=== PATIENT | female | born 1955 | race Caucasian/White ===

== ENCOUNTER 2016-07-12 21:32 | Emergency (ER) | payer BC ==
[2016-07-12 22:37] VITALS: RESP 18
[2016-07-12] MEDS ORDERED: SODIUM CHLORIDE 0.9% 1,000 ML IV STA ×2 (23:05)
[2016-07-12] MEDS ORDERED: ONDANSETRON 4 MG/2 ML VIAL IVP STA ×2 (23:05→23:57)
[2016-07-12] MEDS ORDERED: FAMOTIDINE 20 MG/2 ML VIAL IV STA (23:06)
--- NOTE | 2016-07-12 23:14 | ED ---
General Adult HPI - General Chief complaint: Nausea/Vomiting/Diarrhea Stated complaint: back & abdominal pain/vomiting/right foot numb Time Seen by Provider: 07/12/16 22:48 Source: patient, RN notes reviewed Mode of arrival: wheelchair Limitations: no limitations - History of Present Illness Initial comments: Patient is a 60-year-old female who presents emergency room today with chief complaint of increased nausea vomiting that began approximately 5 hours ago. She denies any signs of blood in the emesis. She does admit to chronic low back pain. Admits that she's had some numbness tingling going down to the right foot. Patient states she does have a pain pump of morphine for this. She states around 6:00 she began having symptoms of nausea vomiting. States she 's having burning sensation in the epigastric area. She states she does have a history of ulcer that she does take omeprazole for. She tried taking omeprazole and Zofran home with no relief the symptoms. Patient denies any recent fever, chills, shortness of breath, chest pain, numbness or tingling, dysuria or hematuria, constipation or diarrhea, headaches or visual changes, or any other complaints. - Related Data Home Medications Medication Instructions Recorded Confirmed Cyclobenzaprine [Flexeril] 10 mg PO BID PRN 04/14/16 07/12/16 traZODone HCL 150 mg PO HS 04/14/16 07/12/16 Morphine (Unknown Dose For Pain See Protocol IV DIRECTED 06/20/16 07/12/16 Pump) Previous Rx's Medication Instructions Recorded rOPINIRole HCL [Requip] 0.5 mg PO HS #60 tab 04/16/16 Methocarbamol [Robaxin-750] 750 mg PO TID PRN #30 tablet 06/20/16 HYDROcodone/APAP 7.5-325MG [[place] 1 tab PO Q6HR PRN #25 tab 06/21/16 7.5-325] Omeprazole [PriLOSEC] 20 mg PO AC-BRKFST 14 Days 07/13/16 Ondansetron Odt [Zofran ODT] 4 mg PO Q8HR PRN #15 tab 07/13/16 Allergies Allergy/AdvReac Type Severity Reaction Status Date / Time Sulfa (Sulfonamide Allergy Severe Rash/Hives Verified 07/12/16 22:35 Antibiotics) Penicillins Allergy Unknown Verified 07/12/16 22:35 Review of Systems ROS Statement: Those systems with pertinent positive or pertinent negative responses have been documented in the HPI. ROS Other: All systems not noted in ROS Statement are negative. Past Medical History Past Medical History: CVA/TIA, Hypertension Additional Past Medical History / Comment(s): chronic back pain, stroke in 2006 , pt has pain pump History of Any Multi-Drug Resistant Organisms: None Reported Past Surgical History: Back Surgery Additional Past Surgical History / Comment(s): laproscopic surgery Past Psychological History: Anxiety, Depression Smoking Status: Current every day smoker Past Alcohol Use History: None Reported Past Drug Use History: None Reported General Exam - General Exam Comments Initial Comments: General: The patient is awake and alert, in no distress, and does not appear acutely ill. Eye: Pupils are equal, round and reactive to light, extra-ocular movements are intact. No nystagmus. There is normal conjunctiva bilaterally. No signs of icterus. Ears, nose, mouth and throat: There are moist mucous membranes and no oral lesions. Neck: The neck is supple, there is no tenderness or JVD. Cardiovascular: There is a regular rate and rhythm. No murmur, rub or gallop is appreciated. Respiratory: Lungs are clear to auscultation, respirations are non-labored, breath sounds are equal. No wheezes, stridor, rales, or rhonchi. Gastrointestinal: Pain pump palpable in the right lower quadrant. Patient tender to palpation in the epigastric. Normal bowel sounds. Abdomen soft on palpation with no guarding. No rebound tenderness. Musculoskeletal: Normal ROM, no tenderness. Strength 5/5. Sensation intact. Pulses equal bilaterally 2+. Neurological: A&O x 3. CN II-XII intact, There are no obvious motor or sensory deficits. Coordination appears grossly intact. Speech is normal. Skin: Skin is warm and dry and no rashes or lesions are noted. Psychiatric: Cooperative, appropriate mood & affect, normal judgment. Limitations: no limitations Course Vital Signs 07/12/16 07/13/16 22:35 01:00 Temperature 97.4 F L Pulse Rate 100 90 Respiratory 18 18 Rate Blood Pressure 118/85 168/88 O2 Sat by Pulse 96 98 Oximetry Medical Decision Making - Medical Decision Making Patient's labs been reviewed. Urinalysis showed 8 red cells. Did show some calcium oxalate in the urinalysis. Options of the kidney stone were discussed with the patient. CAT scan does not reveal any evidence of kidney stone or any other acute abnormalities at this time. Patient will be discharged home. She is advised follow-up the family doctor. Was discussed about her pain pump possibly not working properly withdrawal type symptoms as well. Patient advised return if any symptoms increase or worsen or for any other concerns. She states understanding and is in agreement. - Lab Data Result diagrams: 07/12/16 23:20 07/12/16 23:20 Lab Results 07/12/16 07/12/16 07/12/16 Range/Units 23:20 23:20 23:20 WBC 6.5 (3.8-10.6) k/uL RBC 4.95 (3.80-5.40) m/uL Hgb 14.3 (11.4-16.0) gm/dL Hct 43.8 (34.0-46.0) % MCV 88.6 (80.0-100.0) fL MCH 29.0 (25.0-35.0) pg MCHC 32.7 (31.0-37.0) g/dL RDW 13.0 (11.5-15.5) % Plt Count 228 (150-450) k/uL Neutrophils % 80 % Lymphocytes % 15 % Monocytes % 3 % Eosinophils % 1 % Basophils % 1 % Neutrophils # 5.2 (1.3-7.7) k/uL Lymphocytes # 1.0 (1.0-4.8) k/uL Monocytes # 0.2 (0-1.0) k/uL Eosinophils # 0.1 (0-0.7) k/uL Basophils # 0.0 (0-0.2) k/uL Sodium 138 (137-145) mmol/L Potassium 3.8 (3.5-5.1) mmol/L Chloride 99 (98-107) mmol/L Carbon Dioxide 23 (22-30) mmol/L Anion Gap 16 mmol/L BUN 12 (7-17) mg/dL Creatinine 0.70 (0.52-1.04) mg/dL Est GFR (MDRD) Af Amer >60 (>60 ml/min/1.73 sqM) Est GFR (MDRD) Non-Af >60 (>60 ml/min/1.73 sqM) Glucose 132 H (74-99) mg/dL Calcium 10.1 (8.4-10.2) mg/dL Total Bilirubin 0.8 (0.2-1.3) mg/dL AST 19 (14-36) U/L ALT 29 (9-52) U/L Alkaline Phosphatase 80 (38-126) U/L Total Protein 7.6 (6.3-8.2) g/dL Albumin 4.6 (3.5-5.0) g/dL Amylase 38 (30-110) U/L Lipase 24 (23-300) U/L Urine Color Yellow Urine Appearance Cloudy H (Clear) Urine pH 5.5 (5.0-8.0) Ur Specific [place] 1.031 (1.001-1.035) Urine Protein 1+ H (Negative) Urine Glucose (UA) Negative (Negative) Urine Ketones 2+ H (Negative) Urine Blood Small H (Negative) Urine Nitrate Negative (Negative) Urine Bilirubin 1+ H (Negative) Urine Urobilinogen 3.0 (<2.0) mg/dL Ur Leukocyte Esterase Negative (Negative) Urine RBC 8 H (0-5) /hpf Urine WBC 2 (0-5) /hpf Calcium Oxalate Crystal Moderate H (None) /hpf Urine Mucus Many H (None) /hpf Disposition Clinical Impression: Abdominal pain Disposition: HOME SELF-CARE Condition: Good Instructions: Abdominal Pain (ED) Additional Instructions: Please use medication as discussed. Please follow-up with family doctor in the next 2 days of symptoms have not improved. Please return to emergency room if the symptoms increase or worsen or for any other concerns. Prescriptions: Omeprazole [PriLOSEC] 20 mg PO AC-BRKFST 14 Days Ondansetron Odt [Zofran ODT] 4 mg PO Q8HR PRN #15 tab PRN Reason: Nausea Time of Disposition: 01:58
[2016-07-12 23:39] LABS: Basophils % (A) 1 %; CH 30.2; CHCM 34.2; Eosinophils # (A) 0.1 k/uL (0-0.7); Eosinophils % (A) 1 %; HCT 43.8 % (34.0-46.0); HDW 2.56; HGB 14.3 gm/dL (11.4-16.0); Luc # (Auto) 0.05; Luc % (Auto) 1; Lymphocytes % (A) 15 %; MCHC 32.7 g/dL (31.0-37.0); MCV 88.6 fL (80.0-100.0); Monocytes # (A) 0.2 k/uL (0-1.0); Monocytes % (A) 3 %; Neutrophils # (A) 5.2 k/uL (1.3-7.7); Neutrophils % (A) 80 %; RBC 4.95 m/uL (3.80-5.40); WBC 6.5 k/uL (3.8-10.6)
[2016-07-12 23:43] LABS: Appearance,Urine Cloudy (Clear); Bilirubin,Urine 1+ (Negative); Calcium Oxalate Crystals,Urine Moderate /hpf; Glucose,Urine (UA) Negative (Negative); Ketones,Urine 2+ (Negative); Leukocyte Esterase,Urine Negative (Negative); Mucus,Urine Many /hpf; Nitrite,Urine Negative (Negative); PH, Urine 5.5 (5.0-8.0); Particle Count 19115; Protein,Urine 1+ (Negative); RBC,Urine 8 /hpf (0-5); Specific Gravity,Urine 1.031 (1.001-1.035); UA Billing (MACRO vs. MICRO) MICRO; WBC,Urine 2 /hpf (0-5)
[2016-07-12 23:49] LABS: ALT 29 U/L (9-52); AST 19 U/L (14-36); Alkaline Phosphatase 80 U/L (38-126); Amylase 38 U/L (30-110); Anion Gap 16 mmol/L; Blood Urea Nitrogen 12 mg/dL (7-17); Calcium 10.1 mg/dL (8.4-10.2); Carbon Dioxide 23 mmol/L (22-30); Chloride 99 mmol/L (98-107); Glucose 132 mg/dL (74-99); Non-African American GFR(MDRD) >60 (>60 ml/min/1.73 sqM); Potassium 3.8 mmol/L (3.5-5.1); Sodium 138 mmol/L (137-145); Total Bilirubin 0.8 mg/dL (0.2-1.3); Total Protein 7.6 g/dL (6.3-8.2)
[2016-07-12] MEDS ORDERED: MORPHINE SULFATE 4 MG/ML SYRINGE IV STA (23:57)
[2016-07-12] MEDS ORDERED: LORazepam 2 MG/ML SYRINGE IV STA (23:57)
--- NOTE | 2016-07-13 01:24 | CT ---
EXAMINATION TYPE: CT abdomen pelvis wo con DATE OF EXAM: 07/13/2016 12:28 AM COMPARISON: 04/14/2016 HISTORY: back pain, vimiting CT DLP: 304.40 mGycm Automated exposure control for dose reduction was used. TECHNIQUE: Helical acquisition of images was performed from the lung bases through the pelvis. FINDINGS: LUNG BASES: No significant abnormality is appreciated. LIVER/GB: No significant abnormality is appreciated. PANCREAS: No significant abnormality is seen. SPLEEN: No significant abnormality is seen. ADRENALS: No significant abnormality is seen. KIDNEYS: Both kidneys are rotated laterally. No obstructing stones or hydronephrosis is noted bilater ally. RETROPERITONEAL ADENOPATHY: None visualized REPRODUCTIVE ORGANS: No significant abnormality is seen URINARY BLADDER: No significant abnormality is seen. PELVIC ADENOPATHY: None visualized. OSSEOUS STRUCTURES: Multilevel degenerative changes are present in the thoracolumbar spine with dege nerative disc disease changes at L5-S1 with vacuum disc phenomenon. There is also grade 1 anterolisth esis of L4 on L5 vertebra of chronic nature. Levoscoliosis is noted in the lumbar spine. BOWEL: Moderate fecal material and gas is noted in the colonic bowel loops. There is mild to moderat e colonic fecal lordosis. No significant acute diverticulitis changes are noted. The appendix seen in the axial image 109 and coronal image 27 and showed no significant inflammation. OTHER: There is evidence of an electronic device superimposing the anterior aspect of abdomen. Mild-t o-moderate atherosclerotic calcification is noted in the abdominal aorta and iliac arteries. IMPRESSION: 1. MILD COLONIC DIVERTICULOSIS WITHOUT ACUTE DIVERTICULITIS CHANGES OR ABSCESS COLLECTION. 2. VISUALIZED APPENDIX AREA SHOWED NO SIGNIFICANT INFLAMMATION. 3. NO HYDRONEPHROSIS OR OBSTRUCTING STONES IN BOTH KIDNEYS. 4. NO SIGNIFICANT INTERVAL CHANGE.
[2016-07-13] MEDS ORDERED: HYDROmorphone 1 MG/ML 1 ML SYRINGE IVP STA (02:01)
--- NOTE | 2016-07-13 02:37 | XR ---
EXAMINATION TYPE: XR KUB DATE OF EXAM: 07/12/2016 11:42 PM CLINICAL HISTORY: Nausea and back pain history of chronic back pain back surgery. TECHNIQUE: Single supine KUB image of the abdomen is obtained. COMPARISON: 04/14/2016 FINDINGS: Scattered gas is seen in non-distended small bowel loops. Gas and fecal material is seen in non-distended colon. There is no visceromegaly, pneumoperitoneum, or abnormal calcification appr eciated. The lung bases are clear and the osseous structures are intact. An electronic device is noted superimposing the right abdomen and pelvis. IMPRESSION: Overall nonobstructive bowel gas pattern.
[2016-07-13 02:44] VITALS: BP 168/93; PULSE 97; TEMP 97.9
== END 2016-07-13 02:43 | disposition home or self-care (01) ==
LOC: EC 21:32
DX: R10.9 Unspecified abdominal pain (principal); Z79.899 Other long term (current) drug therapy; Z88.2 Allergy status to sulfonamides; Z88.0 Allergy status to penicillin; Z79.891 Long term (current) use of opiate analgesic; G89.29 Other chronic pain; M54.5 Low back pain; F32.9 Major depressive disorder, single episode, unspecified; F17.200 Nicotine dependence, unspecified, uncomplicated
CPT/HCPCS: 36415; 80053; 82150; 83690; 85025; 81001; 74000; 74176; 99284; 96374 ×2; 96375 ×2; 96361 ×2; J2060; J2270; J2405 ×2; J1170

== ENCOUNTER 2017-02-12 19:06 | Emergency (ER) | payer BC ==
[2017-02-12] MEDS ORDERED: ONDANSETRON 4 MG/2 ML VIAL IVP STA (19:50)
[2017-02-12] MEDS ORDERED: HYDROmorphone 1 MG/ML 1 ML SYRINGE IVP STA (19:50)
[2017-02-12] MEDS ORDERED: SODIUM CHLORIDE 0.9% 1,000 ML IV STA ×2 (19:50)
--- NOTE | 2017-02-12 19:55 | ED ---
General Adult HPI - General Chief complaint: Nausea/Vomiting/Diarrhea Stated complaint: vomiting,black stool Time Seen by Provider: 02/12/17 19:46 Source: patient, family, RN notes reviewed Mode of arrival: ambulatory Limitations: no limitations - History of Present Illness Initial comments: Patient 61-year-old female who presents emergency room today with chief complaint of symptoms of nausea vomiting diarrhea over the last 3 days. She admits that she's had similar symptoms on and off over the last year. She states that the smell of food or when she eats pain increases the upper abdomen. States majority of her pain is located in this area. Patient denies any signs of blood in the emesis or stool. Currently rates pain 04/03. Denies any other complaints at this time. Patient denies any recent fever, chills, shortness of breath, chest pain, back pain, numbness or tingling, dysuria or hematuria, constipation, headaches or visual changes, or any other complaints. - Related Data Home Medications Medication Instructions Recorded Confirmed traZODone HCL 150 mg PO HS 04/14/16 02/12/17 Gabapentin [Neurontin] 300 mg PO QID 02/12/17 02/12/17 HYDROcodone/APAP 10-325MG [[place] 1 tab PO Q8H PRN 02/12/17 02/12/17 10-325] Naloxegol Oxalate [Movantik] 25 mg PO DAILY 02/12/17 02/12/17 Ondansetron Odt [Zofran ODT] 4 mg PO TID PRN 02/12/17 02/12/17 Pantoprazole [Protonix] 40 mg PO DAILY 02/12/17 02/12/17 QUEtiapine [SEROquel] 100 mg PO HS 02/12/17 02/12/17 Sucralfate [Carafate] 1 gm PO ACHS 02/12/17 02/12/17 Triamterene-Hctz 37.5-25Mg 1 cap PO DAILY 02/12/17 02/12/17 [Dyazide 37.5-25 Capsule] busPIRone HCL 15 mg PO BID 02/12/17 02/12/17 cloNIDine HCL [Catapres] 0.1 mg PO AC-TID 02/12/17 02/12/17 rOPINIRole HCL [Requip] 1 mg PO TID 02/12/17 02/12/17 Previous Rx's Medication Instructions Recorded Methocarbamol [Robaxin-750] 750 mg PO TID PRN #30 tablet 06/20/16 Hydrocodone/Acetaminophen [[place] 1 each PO Q6HR PRN #15 tab 02/12/17 5-325] Allergies Allergy/AdvReac Type Severity Reaction Status Date / Time Sulfa (Sulfonamide Allergy Severe Rash/Hives Verified 02/12/17 19:49 Antibiotics) Penicillins Allergy Unknown Verified 02/12/17 19:49 Review of Systems ROS Statement: Those systems with pertinent positive or pertinent negative responses have been documented in the HPI. ROS Other: All systems not noted in ROS Statement are negative. Past Medical History Past Medical History: CVA/TIA, Hypertension Additional Past Medical History / Comment(s): chronic back pain, stroke in 2005 , pt has pain pump History of Any Multi-Drug Resistant Organisms: None Reported Past Surgical History: Back Surgery Additional Past Surgical History / Comment(s): laproscopic surgery Past Psychological History: Anxiety, Depression Smoking Status: Current every day smoker Past Alcohol Use History: None Reported Past Drug Use History: None Reported General Exam - General Exam Comments Initial Comments: General: The patient is awake and alert, in no distress, and does not appear acutely ill. Eye: Pupils are equal, round and reactive to light, extra-ocular movements are intact. No nystagmus. There is normal conjunctiva bilaterally. No signs of icterus. Ears, nose, mouth and throat: There are moist mucous membranes and no oral lesions. Neck: The neck is supple, there is no tenderness or JVD. Cardiovascular: There is a regular rate and rhythm. No murmur, rub or gallop is appreciated. Respiratory: Lungs are clear to auscultation, respirations are non-labored, breath sounds are equal. No wheezes, stridor, rales, or rhonchi. Gastrointestinal: No appearance abdomen. Normal bowel sounds. Abdomen soft on palpation. Patient tender in epigastric and both right and left upper quadrants. No rebound tenderness. No CVA tenderness. Musculoskeletal: Normal ROM, no tenderness. Strength 5/5. Sensation intact. Pulses equal bilaterally 2+. Neurological: A&O x 3. CN II-XII intact, There are no obvious motor or sensory deficits. Coordination appears grossly intact. Speech is normal. Skin: Skin is warm and dry and no rashes or lesions are noted. Psychiatric: Cooperative, appropriate mood & affect, normal judgment. Limitations: no limitations Course Vital Signs 02/12/17 19:10 Temperature 97 F L Pulse Rate 120 H Respiratory 18 Rate Blood Pressure 96/54 O2 Sat by Pulse 97 Oximetry Medical Decision Making - Medical Decision Making Patient's labs been reviewed. Patient's ultrasound does show a dilated common bile duct. No evidence for gallstones. No sign for acute cholecystitis. Options were discussed about admission to the hospital with the patient. At this time patient does not want us be admitted. She states she would rather go home. Patient given a short prescription pain medication and advised to follow- up with surgeon tomorrow. Advised return here to the emergency room symptoms increase or worsen or for any other concerns. - Lab Data Result diagrams: 02/12/17 20:10 02/12/17 20:10 Lab Results 02/12/17 02/12/17 02/12/17 Range/Units 20:10 20:10 20:10 WBC 9.3 (3.8-10.6) k/uL RBC 5.00 (3.80-5.40) m/uL Hgb 14.6 (11.4-16.0) gm/dL Hct 42.9 (34.0-46.0) % MCV 85.7 (80.0-100.0) fL MCH 29.3 (25.0-35.0) pg MCHC 34.1 (31.0-37.0) g/dL RDW 13.9 (11.5-15.5) % Plt Count 294 (150-450) k/uL Neutrophils % 66 % Lymphocytes % 25 % Monocytes % 6 % Eosinophils % 1 % Basophils % 1 % Neutrophils # 6.2 (1.3-7.7) k/uL Lymphocytes # 2.3 (1.0-4.8) k/uL Monocytes # 0.6 (0-1.0) k/uL Eosinophils # 0.1 (0-0.7) k/uL Basophils # 0.0 (0-0.2) k/uL Sodium 139 (137-145) mmol/L Potassium 3.3 L (3.5-5.1) mmol/L Chloride 98 (98-107) mmol/L Carbon Dioxide 28 (22-30) mmol/L Anion Gap 13 mmol/L BUN 9 (7-17) mg/dL Creatinine 0.60 (0.52-1.04) mg/dL Est GFR (MDRD) Af Amer >60 (>60 ml/min/1.73 sqM) Est GFR (MDRD) Non-Af >60 (>60 ml/min/1.73 sqM) Glucose 112 H (74-99) mg/dL Plasma Lactic Acid [place] 1.4 (0.7-2.0) mmol/L Calcium 9.9 (8.4-10.2) mg/dL Total Bilirubin 0.9 (0.2-1.3) mg/dL AST 17 (14-36) U/L ALT 20 (9-52) U/L Alkaline Phosphatase 91 (38-126) U/L Total Protein 7.3 (6.3-8.2) g/dL Albumin 4.4 (3.5-5.0) g/dL Amylase 33 (30-110) U/L Lipase 40 (23-300) U/L Urine Color Urine Appearance (Clear) Urine pH (5.0-8.0) Ur Specific [place] (1.001-1.035) Urine Protein (Negative) Urine Glucose (UA) (Negative) Urine Ketones (Negative) Urine Blood (Negative) Urine Nitrite (Negative) Urine Bilirubin (Negative) Urine Urobilinogen (<2.0) mg/dL Ur Leukocyte Esterase (Negative) Urine RBC (0-5) /hpf Ur Squamous Epith Cells (0-4) /hpf Hyaline Casts (0-2) /lpf Urine Mucus (None) /hpf 02/12/17 Range/Units 20:10 WBC (3.8-10.6) k/uL RBC (3.80-5.40) m/uL Hgb (11.4-16.0) gm/dL Hct (34.0-46.0) % MCV (80.0-100.0) fL MCH (25.0-35.0) pg MCHC (31.0-37.0) g/dL RDW (11.5-15.5) % Plt Count (150-450) k/uL Neutrophils % % Lymphocytes % % Monocytes % % Eosinophils % % Basophils % % Neutrophils # (1.3-7.7) k/uL Lymphocytes # (1.0-4.8) k/uL Monocytes # (0-1.0) k/uL Eosinophils # (0-0.7) k/uL Basophils # (0-0.2) k/uL Sodium (137-145) mmol/L Potassium (3.5-5.1) mmol/L Chloride (98-107) mmol/L Carbon Dioxide (22-30) mmol/L Anion Gap mmol/L BUN (7-17) mg/dL Creatinine (0.52-1.04) mg/dL Est GFR (MDRD) Af Amer (>60 ml/min/1.73 sqM) Est GFR (MDRD) Non-Af (>60 ml/min/1.73 sqM) Glucose (74-99) mg/dL Plasma Lactic Acid [place] (0.7-2.0) mmol/L Calcium (8.4-10.2) mg/dL Total Bilirubin (0.2-1.3) mg/dL AST (14-36) U/L ALT (9-52) U/L Alkaline Phosphatase (38-126) U/L Total Protein (6.3-8.2) g/dL Albumin (3.5-5.0) g/dL Amylase (30-110) U/L Lipase (23-300) U/L Urine Color Yellow Urine Appearance Cloudy H (Clear) Urine pH 6.5 (5.0-8.0) Ur Specific [place] 1.011 (1.001-1.035) Urine Protein 1+ H (Negative) Urine Glucose (UA) Negative (Negative) Urine Ketones Negative (Negative) Urine Blood Trace H (Negative) Urine Nitrite Negative (Negative) Urine Bilirubin Negative (Negative) Urine Urobilinogen <2.0 (<2.0) mg/dL Ur Leukocyte Esterase Negative (Negative) Urine RBC 3 (0-5) /hpf Ur Squamous Epith Cells 3 (0-4) /hpf Hyaline Casts 1 (0-2) /lpf Urine Mucus Rare H (None) /hpf Disposition Clinical Impression: Abdominal pain Disposition: HOME SELF-CARE Condition: Good Instructions: Abdominal Pain (ED) Additional Instructions: Please use medication as discussed. Please follow-up with family doctor in the next 2 days of symptoms have not improved. Please return to emergency room if the symptoms increase or worsen or for any other concerns. Prescriptions: Hydrocodone/Acetaminophen [[place] 5-325] 1 each PO Q6HR PRN #15 tab PRN Reason: Pain Referrals: Juan Diego Issa MD [Primary Care Provider] - 1-2 days Noah Carnes DO [Doctor of Osteopathic Medicine] - 1-2 days Time of Disposition: 21:30
[2017-02-12 20:17] LABS: Basophils % (A) 1 %; CH 29.1; Eosinophils # (A) 0.1 k/uL (0-0.7); Eosinophils % (A) 1 %; HCT 42.9 % (34.0-46.0); HDW 2.53; HGB 14.6 gm/dL (11.4-16.0); Luc # (Auto) 0.13; Luc % (Auto) 1; Lymphocytes # (A) 2.3 k/uL (1.0-4.8); Lymphocytes % (A) 25 %; MCH 29.3 pg (25.0-35.0); MCHC 34.1 g/dL (31.0-37.0); MCV 85.7 fL (80.0-100.0); Mean Platelet Volume 6.7; Monocytes # (A) 0.6 k/uL (0-1.0); Monocytes % (A) 6 %; Neutrophils # (A) 6.2 k/uL (1.3-7.7); Neutrophils % (A) 66 %; RDW 13.9 % (11.5-15.5); WBC 9.3 k/uL (3.8-10.6); WBC (Perox) 9.29
[2017-02-12 20:45] LABS: ALT 20 U/L (9-52); AST 17 U/L (14-36); Alkaline Phosphatase 91 U/L (38-126); Amylase 33 U/L (30-110); Anion Gap 13 mmol/L; Calcium 9.9 mg/dL (8.4-10.2); Carbon Dioxide 28 mmol/L (22-30); Chloride 98 mmol/L (98-107); Glucose 112 mg/dL (74-99); Non-African American GFR(MDRD) >60 (>60 ml/min/1.73 sqM); Potassium 3.3 mmol/L (3.5-5.1); Sodium 139 mmol/L (137-145); Total Bilirubin 0.9 mg/dL (0.2-1.3); Total Protein 7.3 g/dL (6.3-8.2)
[2017-02-12 20:47] LABS: Appearance,Urine Cloudy (Clear); Bilirubin,Urine Negative (Negative); Glucose,Urine (UA) Negative (Negative); Ketones,Urine Negative (Negative); Leukocyte Esterase,Urine Negative (Negative); Mucus,Urine Rare /hpf; Nitrite,Urine Negative (Negative); PH, Urine 6.5 (5.0-8.0); Particle Count 5333; Protein,Urine 1+ (Negative); RBC,Urine 3 /hpf (0-5); Specific Gravity,Urine 1.011 (1.001-1.035); Squamous Epithelial Cell,Urine 3 /hpf (0-4); UA Billing (MACRO vs. MICRO) MICRO; Urobilinogen,Urine <2.0 mg/dL (<2.0)
--- NOTE | 2017-02-12 21:11 | US ---
EXAMINATION TYPE: US abdomen limited DATE OF EXAM: 02/12/2017 COMPARISON: NONE CLINICAL HISTORY: Pain. RUQ pain EXAM MEASUREMENTS: Liver Length: 14.8 cm Gallbladder Wall: 0.17 cm CBD: 0.98 cm Right Kidney: 10.5 x 4.2 x 4.0 cm Pancreas: Tail obscured by overlying bowel gas Liver: wnl Gallbladder: wnl CBD: dilated Right Kidney: No hydronephrosis or masses seen CBD appears dilated IMPRESSION: The common bile duct is enlarged but the intrahepatic bile ducts do not appear dilated. T his could relate to gallbladder dysfunction. No gallstone seen.
[2017-02-12 21:13] LABS: Blood Urea Nitrogen 9 mg/dL (7-17)
[2017-02-12 21:42] VITALS: BP 99/56; PULSE 68; RESP 16; TEMP 97.9
== END 2017-02-12 21:41 | disposition home or self-care (01) ==
LOC: EC 19:06
DX: R10.10 Upper abdominal pain, unspecified (principal); R19.7 Diarrhea, unspecified; R11.2 Nausea with vomiting, unspecified; I10 Essential (primary) hypertension; F41.9 Anxiety disorder, unspecified; F32.9 Major depressive disorder, single episode, unspecified; Z86.73 Personal history of transient ischemic attack (TIA), and cerebral infarction without residual deficits; F17.200 Nicotine dependence, unspecified, uncomplicated; Z79.899 Other long term (current) drug therapy; Z88.0 Allergy status to penicillin; Z88.2 Allergy status to sulfonamides
CPT/HCPCS: 36415; 93005; 80053; 82150; 83605; 83690; 85025; 81001; 76705; 99284; 96374; 96375; 96361 ×2; J2405; J1170

== ENCOUNTER 2018-03-10 11:27 | Inpatient (IN) | payer BC ==
[2018-03-10] MEDS ORDERED: SODIUM CHLORIDE 0.9% 1,000 ML IV ONE ×2 (12:33)
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
[2018-03-10 13:26] LABS: Basophils % (A) 0 %; Eosinophils # (A) 0.3 k/uL (0-0.7); Eosinophils % (A) 3 %; HCT 40.8 % (34.0-46.0); HGB 13.3 gm/dL (11.4-16.0); Lymphocytes # (A) 1.1 k/uL (1.0-4.8); Lymphocytes % (A) 11 %; MCH 30.8 pg (25.0-35.0); MCHC 32.7 g/dL (31.0-37.0); MCV 94.2 fL (80.0-100.0); Mean Platelet Volume 7.2; Monocytes # (A) 0.5 k/uL (0-1.0); Monocytes % (A) 4 %; Neutrophils # (A) 8.6 k/uL (1.3-7.7); Neutrophils % (A) 82 %; Platelet Count 149 k/uL (150-450); RBC 4.33 m/uL (3.80-5.40); RDW 13.9 % (11.5-15.5); WBC 10.6 k/uL (3.8-10.6)
[2018-03-10 13:36] LABS: ALT 16 U/L (9-52); AST 34 U/L (14-36); Albumin 4.2 g/dL (3.5-5.0); Alkaline Phosphatase 80 U/L (38-126); Anion Gap 14 mmol/L; Blood Urea Nitrogen 14 mg/dL (7-17); Calcium 9.4 mg/dL (8.4-10.2); Carbon Dioxide 25 mmol/L (22-30); Chloride 103 mmol/L (98-107); Glucose 109 mg/dL (74-99); Potassium 3.8 mmol/L (3.5-5.1); Sodium 142 mmol/L (137-145); Total Bilirubin 1.6 mg/dL (0.2-1.3); Total Protein 7.3 g/dL (6.3-8.2)
[2018-03-10 13:41] LABS: Partial Thromboplastin Time 21.5 sec (22.0-30.0)
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
[2018-03-10] MEDS ORDERED: HYDROcodone/APAP 5-325MG 1 EACH TAB PO STA (14:18)
[2018-03-10] MEDS ORDERED: ORPHENADRINE 30 MG/ML 2 ML VIAL IVP STA (14:19)
--- NOTE | 2018-03-10 14:21 | XR ---
EXAMINATION TYPE: XR elbow complete RT DATE OF EXAM: 03/10/2018 COMPARISON: NONE HISTORY: Pain TECHNIQUE: 3 views FINDINGS: I see no fracture nor dislocation. Elbow joint spaces are normal. There is no sign of elbow joint effusion. There is possible 2 mm foreign body in the soft tissues of the distal forearm. IMPRESSION: No fracture. Possible small foreign body.
--- NOTE | 2018-03-10 14:22 | XR ---
EXAMINATION TYPE: XR pelvis AP view DATE OF EXAM: 03/10/2018 COMPARISON: NONE HISTORY: Pain TECHNIQUE: Single view FINDINGS: Pelvic ring is intact. Proximal femurs are intact. There is a 16 mm calcification at the gr eater trochanter of the left femur. IMPRESSION: No fracture seen. Calcification on the left side could relate to calcific bursitis.
--- NOTE | 2018-03-10 14:23 | XR ---
EXAMINATION TYPE: XR chest 2V DATE OF EXAM: 03/10/2018 COMPARISON: NONE HISTORY: Pain TECHNIQUE: Frontal and lateral views of the chest are obtained. FINDINGS: Heart and mediastinum are normal. Lungs are clear. Diaphragm is normal. Bony thorax appear s normal. IMPRESSION: Normal chest
--- NOTE | 2018-03-10 14:24 | XR ---
EXAMINATION TYPE: XR thoracic spine 2V DATE OF EXAM: 03/10/2018 COMPARISON: NONE HISTORY: Back pain TECHNIQUE: 3 views FINDINGS: Thoracic vertebra have normal alignment. Posterior elements are intact. I see no compressio n fracture. There is no paraspinal mass. IMPRESSION: Negative thoracic spine exam.
--- NOTE | 2018-03-10 14:26 | XR ---
EXAMINATION TYPE: XR lumbar spine 2 or 3V DATE OF EXAM: 03/10/2018 COMPARISON: NONE HISTORY: Pain after fall TECHNIQUE: 3 views FINDINGS: There is narrowing of L4-5 L5-S1 disc spaces. Vertebra have normal alignment. There is 10% wedging of L1 vertebra consistent with an acute compression fracture. The posterior elements are inta ct. Sacroiliac joints appear intact. There is infusion pump catheter in the spinal canal at the L1 le jasmyne. IMPRESSION: Acute compression fracture of L1 vertebral body. Spondylotic changes in the lower lumbar spine.
[2018-03-10 15:24] LABS: Amorphous Sediment,Urine Rare /hpf; Appearance,Urine Clear (Clear); Bilirubin,Urine Negative (Negative); Blood,Urine Moderate (Negative); Color,Urine Yellow; Glucose,Urine (UA) Negative (Negative); Hyaline Casts,Urine 10 /lpf (0-2); Ketones,Urine Negative (Negative); Leukocyte Esterase,Urine Negative (Negative); Mucus,Urine Few /hpf; Nitrite,Urine Negative (Negative); Protein,Urine 1+ (Negative); RBC,Urine 2 /hpf (0-5); Specific Gravity,Urine 1.024 (1.001-1.035); Squamous Epithelial Cell,Urine <1 /hpf (0-4); Urobilinogen,Urine <2.0 mg/dL (<2.0); WBC,Urine 3 /hpf (0-5)
[2018-03-10 15:37] LABS: Amphetamine Screen,Urine Not Detected (NotDetected); Barbiturate Screen,Urine Not Detected (NotDetected); Benzodiazepines Screen,Urine Detected (NotDetected); Cocaine Screen,Urine Not Detected (NotDetected); Methadone Screen, Urine Not Detected (NotDetected); Opiate Screen,Urine Detected (NotDetected); Oxycodone Screen, Urine Not Detected (NotDetected); Phencyclidine Screen,Urine Not Detected (NotDetected); Tricyclic Antidepressant,Urine Detected (NotDetected); Urn Cannabinoid Scrn Not Detected (NotDetected)
[2018-03-10] MEDS ORDERED: MORPHINE SULFATE 4 MG/ML SYRINGE IV PRN (15:48)
[2018-03-10] MEDS ORDERED: DOCUSATE 100 MG CAP PO PRN (16:24)
[2018-03-10] MEDS ORDERED: KETOROLAC 30 MG/ML 1 ML VIAL IVP PRN (16:24)
[2018-03-10] MEDS ORDERED: NALOXONE 0.4 MG/ML 1 ML VIAL IV PRN (16:24)
[2018-03-10] MEDS ORDERED: ONDANSETRON 4 MG/2 ML VIAL IVP PRN (16:24)
[2018-03-10] MEDS ORDERED: ACETAMINOPHEN TAB 325 MG TAB PO PRN (16:24)
[2018-03-10] MEDS ORDERED: IBUPROFEN 400 MG TAB PO PRN (16:24)
[2018-03-10] MEDS ORDERED: HYDROmorphone 1 MG/ML 1 ML SYRINGE IVP PRN ×2 (16:24)
[2018-03-10] MEDS ORDERED: METHOCARBAMOL 750 MG TAB PO PRN (16:28)
[2018-03-10] MEDS ORDERED: SODIUM CHLORIDE 0.9% 1,000 ML IV SCH (16:30)
[2018-03-10] MEDS ORDERED: NON-FORMULARY DRUG (Morphine Pain Pump 1 DOSE) SQ-PUMP SCH (16:30)
[2018-03-10] MEDS ORDERED: NICOTINE 21MG/24HR PATCH TRANSDERM STA (16:35)
[2018-03-10] MEDS ORDERED: HYDROmorphone 1 MG/ML 1 ML SYRINGE IVP STA (16:36)
[2018-03-10] MEDS ORDERED: PANTOPRAZOLE 40 MG TABLET PO SCH (17:30)
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
[2018-03-10] MEDS: HYDROcodone/APAP 10-325MG 1 EACH TAB PO PRN (19:48)
[2018-03-10] MEDS: LORazepam 0.5 MG TAB PO PRN (19:49)
[2018-03-10] MEDS: QUEtiapine 100 MG TAB PO SCH (19:49)
[2018-03-10 21:18] LABS: Creatine Kinase MB 1.9 ng/mL (0.0-2.4)
[2018-03-10 21:23] LABS: Troponin I 0.046 ng/mL (0.000-0.034)
[2018-03-10 22:31] VITALS: BMI 28.4
[2018-03-11 02:27] LABS: Creatine Kinase MB 1.9 ng/mL (0.0-2.4)
[2018-03-11 02:35] LABS: Troponin I 0.035 ng/mL (0.000-0.034)
[2018-03-11 07:12] LABS: Basophils # (A) 0.1 k/uL (0-0.2); Basophils % (A) 1 %; Eosinophils # (A) 0.3 k/uL (0-0.7); Eosinophils % (A) 4 %; HGB 10.7 gm/dL (11.4-16.0); Lymphocytes # (A) 1.9 k/uL (1.0-4.8); Lymphocytes % (A) 25 %; MCH 30.3 pg (25.0-35.0); MCHC 31.5 g/dL (31.0-37.0); MCV 96.2 fL (80.0-100.0); Mean Platelet Volume 7.2; Monocytes # (A) 0.5 k/uL (0-1.0); Monocytes % (A) 6 %; Neutrophils # (A) 4.7 k/uL (1.3-7.7); Neutrophils % (A) 62 %; Platelet Count 136 k/uL (150-450); RBC 3.54 m/uL (3.80-5.40); WBC 7.5 k/uL (3.8-10.6)
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
[2018-03-11] MEDS ORDERED: LOSARTAN 50 MG TAB PO SCH (09:00)
[2018-03-11] MEDS ORDERED: ASPIRIN 325 MG TAB PO SCH (09:00)
[2018-03-11] MEDS ORDERED: HYDROCHLOROTHIAZIDE 25 MG TAB PO SCH (09:00)
[2018-03-11] MEDS: HYDROcodone/APAP 10-325MG 1 EACH TAB PO PRN ×2 (09:00→21:22)
[2018-03-11] MEDS ORDERED: PANTOPRAZOLE 40 MG/10 ML VIAL IV SCH (09:00)
[2018-03-11] MEDS: ASPIRIN 81 MG PO SCH (09:04)
[2018-03-11 10:09] LABS: Anion Gap 7 mmol/L; Blood Urea Nitrogen 15 mg/dL (7-17); Calcium 7.9 mg/dL (8.4-10.2); Carbon Dioxide 28 mmol/L (22-30); Chloride 102 mmol/L (98-107); Cholesterol 121 mg/dL (<200); Glucose 88 mg/dL (74-99); HDL Cholesterol 40 mg/dL (40-60); LDL Cholesterol,Calculated 65 mg/dL (0-99); Potassium 3.6 mmol/L (3.5-5.1); Sodium 137 mmol/L (137-145); Triglycerides 82 mg/dL (<150)
--- NOTE | 2018-03-11 10:41 | P.PN ---
Subjective Progress Note Date: 03/11/18 The patient was seen and examined at the bedside. The patient notes that the lower back pain continues to be 10/10, nonradiating, worsened with activity, improves with rest. The pain is only modestly controlled with Mcclure 10. She also notes decreased sensation to urinate and that she has not spontaneously urinated in the past 24 hours. She also endorsed numbness of bilateral lateral aspect of legs from hips down towards toes with being unable to walk secondary to the pain. She denied fecal incontinence, chest pain, SOB, nausea, vomiting, diarrhea, constipation, palpitations, or dizziness. Objective - Vital Signs Vital signs: Vital Signs Temp 98.7 F 03/11/18 08:00 Pulse 101 H 03/11/18 08:00 Resp 16 03/11/18 08:00 BP 102/54 03/11/18 08:00 Pulse Ox 94 L 03/11/18 08:00 Intake & Output 03/10/18 03/11/18 03/11/18 18:59 06:59 18:59 Intake Total 240 Balance 240 Weight 84.822 kg 89.3 kg Intake: Oral 240 Other: Voiding Method Toilet # Voids 1 1 - Exam General: Non-toxic, in no acute distress HEENT: NC/AT, anicteric sclerae, moist conjunctiva, no lid-lag, PERRLA, oropharynx clear, no erythema, exudates Cardiovascular: S1/S2 wnl, no murmurs, rubs, or gallops Lungs: Clear to auscultation, normal respiratory effort, no accessory muscle use Abdominal: Soft, nontender, non-distended, no guarding, rebound, or rigidity, normoactive bowel sounds Skin: Warm, dry Extremities: No edema or contractures, lumbar spinal tenderness to palpation Psychiatric: Alert and oriented to person, place and time, appropriate affect, Intact judgment Neuro: CN II-XII intact, Strength examination of LE limited due to pain, sensation diminished at lateral aspect of legs luigi, DTR 2+ patellar, babinski downwards - Labs CBC & Chem 7: 03/11/18 06:20 03/11/18 06:20 Labs: Abnormal Lab Results - Last 24 Hours (Table) 03/10/18 03/10/18 03/10/18 Range/Units 13:12 13:12 13:12 RBC (3.80-5.40) m/uL Hgb (11.4-16.0) gm/dL Plt Count 149 L (150-450) k/uL Neutrophils # 8.6 H (1.3-7.7) k/uL APTT 21.5 L (22.0-30.0) sec D-Dimer (<0.60) mg/L FEU Glucose 109 H (74-99) mg/dL Calcium (8.4-10.2) mg/dL Total Bilirubin 1.6 H (0.2-1.3) mg/dL Total Creatine Kinase (30-135) U/L Troponin I (0.000-0.034) ng/mL Urine Protein (Negative) Urine Blood (Negative) Amorphous Sediment (None) /hpf Hyaline Casts (0-2) /lpf Urine Mucus (None) /hpf Urine Opiates Screen (NotDetected) U Tricyclic Antidepress (NotDetected) U Benzodiazepines Scrn (NotDetected) 03/10/18 03/10/18 03/10/18 Range/Units 13:12 15:00 20:22 RBC (3.80-5.40) m/uL Hgb (11.4-16.0) gm/dL Plt Count (150-450) k/uL Neutrophils # (1.3-7.7) k/uL APTT (22.0-30.0) sec D-Dimer (<0.60) mg/L FEU Glucose (74-99) mg/dL Calcium (8.4-10.2) mg/dL Total Bilirubin (0.2-1.3) mg/dL Total Creatine Kinase 1223 H* (30-135) U/L Troponin I 0.081 H* 0.046 H* (0.000-0.034) ng/mL Urine Protein 1+ H (Negative) Urine Blood Moderate H (Negative) Amorphous Sediment Rare H (None) /hpf Hyaline Casts 10 H (0-2) /lpf Urine Mucus Few H (None) /hpf Urine Opiates Screen Detected H (NotDetected) U Tricyclic Antidepress Detected H (NotDetected) U Benzodiazepines Scrn Detected H (NotDetected) 03/11/18 03/11/18 03/11/18 Range/Units 01:26 06:20 06:20 RBC 3.54 L (3.80-5.40) m/uL Hgb 10.7 L (11.4-16.0) gm/dL Plt Count 136 L (150-450) k/uL Neutrophils # (1.3-7.7) k/uL APTT (22.0-30.0) sec D-Dimer (<0.60) mg/L FEU Glucose (74-99) mg/dL Calcium 7.9 L (8.4-10.2) mg/dL Total Bilirubin (0.2-1.3) mg/dL Total Creatine Kinase 1273 H* (30-135) U/L Troponin I 0.035 H* (0.000-0.034) ng/mL Urine Protein (Negative) Urine Blood (Negative) Amorphous Sediment (None) /hpf Hyaline Casts (0-2) /lpf Urine Mucus (None) /hpf Urine Opiates Screen (NotDetected) U Tricyclic Antidepress (NotDetected) U Benzodiazepines Scrn (NotDetected) 03/11/18 Range/Units 09:08 RBC (3.80-5.40) m/uL Hgb (11.4-16.0) gm/dL Plt Count (150-450) k/uL Neutrophils # (1.3-7.7) k/uL APTT (22.0-30.0) sec D-Dimer 9.12 H (<0.60) mg/L FEU Glucose (74-99) mg/dL Calcium (8.4-10.2) mg/dL Total Bilirubin (0.2-1.3) mg/dL Total Creatine Kinase (30-135) U/L Troponin I (0.000-0.034) ng/mL Urine Protein (Negative) Urine Blood (Negative) Amorphous Sediment (None) /hpf Hyaline Casts (0-2) /lpf Urine Mucus (None) /hpf Urine Opiates Screen (NotDetected) U Tricyclic Antidepress (NotDetected) U Benzodiazepines Scrn (NotDetected) Assessment and Plan Plan: Acute L1 compression fracture - Ortho consulted, recs pending - MRI of lumbar spine ordered w/ and w/o contrast - C/w Neurochecks - C/w pain-control w/ Mcclure 10 - Bedrest until brace in place as per Ortho Urinary retention - Will consider placing pelletier if continued retention and needing multiple straight-caths Elevated D-dimer - Will order CTA Chest Elevated Troponin - Cardiology recs appreciated Normocytic anemia - Possibly dilutional - Will monitor for now Thrombocytopenia - Will monitor for now Anxiety, bipolar - C/w home meds: Seroquel and Ativan DVT//GI prophylaxis - IPCDs - No indication for GI prophylaxis Discussed with: patient Anticipated discharge date: 03/13/18 A total of 45 minutes was spent on the care of this complex patient more than 50 % of the time was spent in counseling and care coordination.
--- NOTE | 2018-03-11 12:14 | ECHOF ---
Referral Reason:syncope, elevated trop MEASUREMENTS -------- HEIGHT: 172.7 cm WEIGHT: 88.9 kg BP: 100/64 IVSd: 1.0 cm (0.6 - 1.1) LVIDd: 2.9 cm (3.9 - 5.3) LVPWd: 1.2 cm (0.6 - 1.1) IVSs: 1.5 cm LVIDs: 1.7 cm LVPWs: 1.7 cm Ao Diam: 3.1 cm (2.0 - 3.7) AV Cusp: 1.7 cm (1.5 - 2.6) LA Diam: 3.1 cm (2.7 - 3.8) MV EXCURSION: 14.577 mm (> 18.000) MV EF SLOPE: 139 mm/s (70 - 150) EPSS: 0.9 cm MV E Rocky: 0.98 m/s MV DecT: 152 ms MV A Rocky: 1.09 m/s MV E/A Ratio: 0.90 RAP: 5.00 mmHg RVSP: 42.06 mmHg FINDINGS -------- Resting tachycardia (HR>100bpm). This was a technically good study. The left ventricular size is normal. Left ventricular wall thickness is normal. Overall left vent ricular systolic function is normal with, an EF between 55 - 60 %. The right ventricle is normal in size and function. The left atrium is normal in size. The right atrium is normal in size. The aortic valve is trileaflet, and appears structurally normal. No aortic stenosis or regurgitation. Mild mitral regurgitation is present. Mild tricuspid regurgitation present. There is mild pulmonary hypertension. The right ventricular systolic pressure, as measured by Doppler, is 42.06mmHg. Pulmonic valve appears structurally normal. The aortic root size is normal. Normal inferior vena cava with normal inspiratory collapse consistent with estimated right atrial pre ssure of 5 mmHg. The pericardium is normal. CONCLUSIONS -------- 1. Resting tachycardia (HR>100bpm). 2. This was a technically good study. 3. The left ventricular size is normal. 4. Left ventricular wall thickness is normal. 5. Overall left ventricular systolic function is normal with, an EF between 55 - 60 %. 6. The right ventricle is normal in size and function. 7. The left atrium is normal in size. 8. The right atrium is normal in size. 9. The aortic valve is trileaflet, and appears structurally normal. No aortic stenosis or regurgitati on. 10. Mild mitral regurgitation is present. 11. Mild tricuspid regurgitation present. 12. There is mild pulmonary hypertension. 13. The right ventricular systolic pressure, as measured by Doppler, is 42.06mmHg. 14. Pulmonic valve appears structurally normal. 15. The aortic root size is normal. 16. Normal inferior vena cava with normal inspiratory collapse consistent with estimated right atrial pressure of 5 mmHg. 17. The pericardium is normal. ACID CORRECTION HAND: Nat [employer] RDCS
[2018-03-11] MEDS: NICOTINE 14MG/24HR PATCH TRANSDERM SCH (12:54)
[2018-03-11] MEDS: PANTOPRAZOLE 40 MG TABLET PO SCH ×2 (12:55→17:14)
[2018-03-11] MEDS: BACLOFEN 10 MG TAB PO PRN (12:55)
--- NOTE | 2018-03-11 16:05 | CT ---
EXAMINATION TYPE: CT angio chest DATE OF EXAM: 03/11/2018 COMPARISON: 04/24/2016 HISTORY: elevated d-dimer CT DLP: 325.7 mGycm CONTRAST: CT chest with contrast and 3D reconstruction with MIP imaging is performed with IV Contrast, patient injected with 70mL mL of Isovue 370. Contrast-enhanced CT of the chest was performed through the course of the pulmonary arteries with walker g and mediastinal window settings submitted. 3D reconstruction with MIP imaging was also performed. PULMONARY ARTERIES: Upper lobe emphysematous changes noted. The pulmonary arteries and their major t ributaries are patent. I do not see evidence for sizable filling defect to suggest pulmonary embolic process. LUNGS: The lungs are clear and free of infiltrate. No evidence for atelectasis. No pulmonary nodule or mass is detected. No pleural effusion. MEDIASTINUM: Thoracic aorta is of normal caliber,however, evaluation is limited given timing of the contrast bolus. If there is concern for thoracic aortic pathology consider VI. Correlate clinicall y . The heart is not enlarged. No evidence for mediastinal mass. No mediastinal lymph nodes greater than 1cm. HILAR STRUCTURES: No evidence for mass. No hilar lymph nodes greater than 1 cm. UPPER ABDOMEN: No significant abnormality is seen. IMPRESSION: 1. No evidence for Pulmonary embolism at this time.
[2018-03-11] MEDS: MORPHINE SULFATE IR 15 MG TABLET PO PRN (16:19)
[2018-03-11] MEDS: LORazepam 0.5 MG TAB PO PRN (17:14)
[2018-03-11] MEDS: QUEtiapine 100 MG TAB PO SCH (19:58)
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
[2018-03-12] MEDS: HYDROcodone/APAP 10-325MG 1 EACH TAB PO PRN ×3 (04:34→20:42)
[2018-03-12 08:26] LABS: HGB 9.9 gm/dL (11.4-16.0); MCH 30.1 pg (25.0-35.0); MCHC 31.9 g/dL (31.0-37.0); MCV 94.4 fL (80.0-100.0); Mean Platelet Volume 7.6; Platelet Count 136 k/uL (150-450); RBC 3.28 m/uL (3.80-5.40); RDW 13.8 % (11.5-15.5); WBC 6.5 k/uL (3.8-10.6)
[2018-03-12] MEDS: PANTOPRAZOLE 40 MG TABLET PO SCH ×2 (08:40→17:51)
[2018-03-12] MEDS: ASPIRIN 81 MG PO SCH (08:40)
[2018-03-12] MEDS: NICOTINE 14MG/24HR PATCH TRANSDERM SCH (08:40)
[2018-03-12] MEDS: MORPHINE SULFATE IR 15 MG TABLET PO PRN ×2 (08:47→15:53)
[2018-03-12] MEDS: BACLOFEN 10 MG TAB PO PRN ×2 (09:29→18:08)
[2018-03-12] MEDS: ALPRAZolam 0.25 MG TAB PO PRN (12:33)
--- NOTE | 2018-03-12 13:20 | P.PN ---
Progress Note - Text Progress Note Date: 03/12/18 She is a pleasant 62-year-old female who is seen today at the bedside following evaluation regards her acute traumatic L1 compression fracture deformity. She continues to have significant pain at the fracture site. Since being seen and examined yesterday, an Exos LSO brace has been delivered and fitted for the patient appropriately. She has been able to ambulate the hallways since being seen and examined yesterday. She has been wearing this brace during increased activities and ambulation and states it does provide some port for her lumbar spine. She continues to have difficulty with numbness in the bilateral lower extremities. She is also experiencing urinary retention. A Joel catheter has been placed. She is also having some low oxygen saturation levels and is currently on O2 nasal cannula. She has a history of previous morphine pump placement. Due to this, she was having difficulty obtaining an MRI lumbar spine. She has recently been able to obtain clearance in regards to her pump so that MRI of the lumbar spine can be performed. This MRI scheduled for today , 03/12/2018, at 1400 hours. She is eating without significant difficulty. Her pain is better controlled as long as she gets her medication as scheduled. Physical exam: Patient is awake, alert, and oriented 3 Vital signs stable Good chest excursion with deep inspiration and expiration; early on O2 nasal cannula Abdomen soft nontender Examination of lumbar spine reveals skin is intact with no abrasions, lacerations, or bruises; no erythema, purulence or signs of infection Evidence of a small well-healed incision along the [id number] lumbar spine Evidence of bruising along the midline of the buttocks at the distal sacrum Generalized decreased sensation to palpation over the lower extremities Pain with palpation along the midline of the upper lumbar spine Dorsiflexion, plantarflexion, and extensor hallucis longus positive sustained bilaterally Lower extremity strength globally improved as compared to yesterday over the bilateral lower extremities Patient is able to independently move legs in bed more easily today as compared to yesterday Patellar reflex 0+ bilaterally and Achilles reflexes 0+ bilaterally No lower extremity hyperreflexia bilaterally No signs or symptoms of DVT; no calf pain No pain with internal and external rotation of the hips bilaterally Vascularly intact bilaterally lower extremities Evidence of bruising over the right elbow No significant pain with palpation of the right elbow Active range of motion of the right elbow out of difficulty Joel catheter intact Pertinent studies: X-rays lumbosacral spine: L1 compression fracture deformity with approximately 10-15% height loss at the superior endplate; L4-5 and L5-S1 degenerative disc disease; evidence of morphine pump with leads extending to approximately T12-L1 X-rays of the thoracic spine: Negative thoracic spine exam; overall liability adequately maintained; no evidence of compression fracture X-rays of the right elbow: No evidence of fracture or dislocation at the elbow joint; possible 2 mm foreign body in the soft tissues of the distal forearm X-ray of the pelvis: No evidence of fracture; calcification of the left greater trochanter could be related to calcific bursitis Assessment: Acute traumatic L1 compression fracture deformity with approximately 10-15% height loss of superior endplate Intractable lumbar pain Inability to ambulate due to pain History of chronic pain with morphine pump placement Lumbar degenerative disc disease Urinary retention Elevated cardiac enzymes Plan: 1. After reviewing imaging, physical examination the patient, and further discussion with the patient, we'll plan to continue with conservative treatment in regards to her L1 compression fracture deformity. A prescription for an LSO brace has been written and provided to case management yesterday. This brace has been delivered and fitted appropriately. She should continue to wear this brace while sitting upright at greater than 45, during ambulation, and during increase activities. Medicine is planning to obtain an MRI lumbar spine. She was recently able to obtain clearance to have the MRI performed as there was some discussion whether she'll be able to have this MRI performed due to her morphine pump. Her lumbar MRI is currently scheduled for 1400 hrs. today, 03/12. We will review this MRI following the completion of this imaging. We will adjust our plan care accordingly if there are evidence of significant findings that correlate well with her lower extremity weakness and radiculopathy symptoms and urinary retention. We will continue bracing for her L1 fracture. She does not have to wear her brace while lying in bed or while bathing. 2. Continue pain control medications as prescribed by medicine including [place] and morphine 3. Patient will continue be seen and examined by cardiology following elevated cardiac enzymes 4. We will continue to follow patient closely. 5. Patient has been discussed in detail with Dr. Bob Sheth and he agrees with this plan
--- NOTE | 2018-03-12 13:46 | P.PN ---
Subjective Progress Note Date: 03/12/18 Patient was seen and examined at bedside. She continues to endorse back pain, 7 out of 10 in intensity, constant, with radiation to bilateral legs, worsened with movement, and alleviated with rest. She notes that her last BM was 3 days ago. She is otherwise denying any active complaints including fever, chills, nausea, vomiting, diarrhea, abdominal pain, palpitations, or dizziness. A Joel catheter was inserted yesterday due to inability to void and retention. Objective - Vital Signs Vital signs: Vital Signs Temp 97.7 F 03/12/18 06:28 Pulse 72 03/12/18 06:28 Resp 16 03/12/18 06:28 BP 115/74 03/12/18 06:28 Pulse Ox 91 L 03/12/18 06:28 Intake & Output 03/11/18 03/12/18 03/12/18 18:59 06:59 18:59 Intake Total 480 Output Total 0 2101 Balance 480 -2101 Weight 93 kg Intake: Oral 480 Output: Urine 0 2100 Stool 1 Other: Voiding Method Indwelling Catheter - Exam General: Non-toxic, in no acute distress HEENT: NC/AT, anicteric sclerae, moist conjunctiva, no lid-lag, PERRLA, oropharynx clear, no erythema, exudates Cardiovascular: S1/S2 wnl, no murmurs, rubs, or gallops Lungs: Clear to auscultation, normal respiratory effort, no accessory muscle use Abdominal: Soft, nontender, non-distended, no guarding, rebound, or rigidity, normoactive bowel sounds Skin: Warm, dry Extremities: No edema or contractures, lumbar spinal tenderness to palpation, LSO brace at the bedside Psychiatric: Alert and oriented to person, place and time, appropriate affect, Intact judgment Neuro: CN II-XII intact, Strength examination of LE limited due to pain, sensation diminished at lateral aspect of legs luigi, DTR 2+ patellar, babinski downwards - Labs CBC & Chem 7: 03/12/18 07:54 03/11/18 06:20 Labs: Abnormal Lab Results - Last 24 Hours (Table) 03/12/18 Range/Units 07:54 RBC 3.28 L (3.80-5.40) m/uL Hgb 9.9 L (11.4-16.0) gm/dL Hct 31.0 L (34.0-46.0) % Plt Count 136 L (150-450) k/uL Assessment and Plan Plan: Acute L1 compression fracture - Ortho consulted, recs appreciated - MRI of lumbar spine ordered w/ and w/o contrast - C/w Neurochecks - C/w pain-control w/ [place] 10 and Morphine IR tabs q8h - Bedrest w/ LSO brace when ambulating - Dulcolax for constipation Urinary retention - Joel inserted yesterday due to retention. Will attempt voiding trial tomorrow Elevated D-dimer - CTA neg for PE Elevated Troponin - Cardiology recs appreciated. Echocardiogram reviewed: EF normal 55-60% w/ mild pulm htn PASP 42.06 Normocytic anemia - Will check FOBT. Thrombocytopenia - Stable - Will monitor for now Anxiety, bipolar - C/w home meds: Seroquel and Ativan DVT//GI prophylaxis - IPCDs - No indication for GI prophylaxis Discussed with: patient Anticipated discharge date: 03/13/18 A total of 45 minutes was spent on the care of this complex patient more than 50 % of the time was spent in counseling and care coordination.
[2018-03-12] MEDS: BISACODYL 5 MG TABLET.DR PO SCH (15:52)
--- NOTE | 2018-03-12 16:38 | MR ---
EXAMINATION TYPE: MR gonsalo/lschristin wo con DATE OF EXAM: 03/12/2018 COMPARISON: CT chest 03/11/2018, plain film 03/10/[address] abdomen pelvis 07/13/2016. HISTORY: back pain, fall, L1 fx on xray TECHNIQUE: Multiplanar, multisequence imaging of the lumbar and thoracic spine is performed without I V contrast. FINDINGS: Thoracic spine MRI: Thoracic vertebral bodies show preserved height and alignment. There is multileve l spondylosis with endplate discogenic marrow signal change. Disc spaces are relatively maintained. A t T9-10, T8-9, T7-8 there is some loss of disc height and signal. No significant central canal stenos is or foraminal encroachment. Thoracic cord signal is maintained. T10-11 shows a probable nerve sheat h diverticulum on the right. Some facet arthropathy changes are present especially towards the lower thoracic spine. No sizable disc herniation. T2-3 shows a small right posterior paracentral disc bulge causing slight anterior mass effect on the thecal sac. There is a mild spinal curvature. IMPRESSION: Degenerative disc disease Lumbar MRI: Anterolisthesis grade 1 L4-5. Superior endplate of L1 show some loss of height with endpl ate signal change compatible with mild compression deformity. Only minimal retropulsion of approximat flako 3 to 4 mm of the superior endplate into the spinal canal. Loss of disc height signal is greatest at L5-S1 with associated vacuum phenomenon but also present at L4-5. Spinal cord stimulator lead thou ght to be present within the thecal sac is noted on CT. Multilevel spondylosis with endplate discogen ic marrow signal changes are present. There is a mild spinal curvature. L5-S1: Right posterior paracentral disc bulge causes contact with the anterior thecal sac and possibl y proximal S1 nerve roots right greater than left. Facet arthropathy is present. Circumferential exte nsion of endplate disc complex encroaches more on the left neural foramen and right. L4-5: Facet arthropathy with hypertrophy ligamentum flavum causes some posterior lateral mass effect on the thecal sac. No significant central stenosis or foraminal encroachment, no sizable disc herniat ion. L3-4: Broad-based posterior disc bulge causes mild anterior mass effect on the thecal sac. There is f acet arthropathy. No significant central stenosis or foraminal encroachment. Hypertrophy of ligamentu m flavum causes posterior lateral mass effect on the thecal sac. L2-3: Broad-based posterior disc bulge causes mild anterior mass effect on the thecal sac. No signifi cant foraminal encroachment or central stenosis. There is some facet arthropathy change with hypertro phy ligamentum flavum causing some posterior lateral mass effect on the thecal sac. L1-2: Unremarkable T12-L1: No evident disc herniation or foraminal encroachment. Retropulsion noted as described above. IMPRESSION: Degenerative disc disease, facet arthropathy, foraminal encroachment and spondylolisthesi s. L1 endplate compression fracture without significant spinal stenosis. Indwelling stimulator lead.
[2018-03-12] MEDS: QUEtiapine 100 MG TAB PO SCH (20:43)
[2018-03-13] MEDS: LORazepam 0.5 MG TAB PO PRN ×2 (02:42→19:13)
[2018-03-13] MEDS: MORPHINE SULFATE IR 15 MG TABLET PO PRN ×3 (02:42→19:13)
[2018-03-13] MEDS: HYDROcodone/APAP 10-325MG 1 EACH TAB PO PRN ×2 (05:30→15:24)
[2018-03-13] MEDS: ASPIRIN 81 MG PO SCH (10:04)
[2018-03-13] MEDS: BISACODYL 5 MG TABLET.DR PO SCH (10:04)
[2018-03-13] MEDS: PANTOPRAZOLE 40 MG TABLET PO SCH ×2 (10:05→17:44)
[2018-03-13] MEDS: NICOTINE 14MG/24HR PATCH TRANSDERM SCH (10:05)
[2018-03-13] MEDS: ALPRAZolam 0.25 MG TAB PO PRN (10:16)
--- NOTE | 2018-03-13 18:01 | P.PN ---
Subjective Progress Note Date: 03/13/18 Patient was seen and examined at the bedside. The patient notes that her pain is better controlled though it continues to be a 5-7 out of 10. She is otherwise denying any active complaints including weakness, numbness, fever, cough, chills, chest pain, shortness of breath, or dizziness. Objective - Vital Signs Vital signs: Vital Signs Temp 100.0 F H 03/13/18 15:00 Pulse 99 03/13/18 15:00 Resp 18 03/13/18 15:00 BP 147/83 03/13/18 15:00 Pulse Ox 97 03/13/18 15:00 Intake & Output 03/12/18 03/13/18 03/13/18 18:59 06:59 18:59 Intake Total 240 300 Output Total 900 1700 1650 Balance -660 -1400 -1650 Intake: Oral 240 300 Output: Urine 900 1700 1650 Straight 1700 Other: Voiding Method Indwelling Catheter Indwelling Catheter # Bowel Movements 0 - Exam General: Non-toxic, in no acute distress HEENT: NC/AT, anicteric sclerae, moist conjunctiva, no lid-lag, PERRLA, oropharynx clear, no erythema, exudates Cardiovascular: S1/S2 wnl, no murmurs, rubs, or gallops Lungs: Clear to auscultation, normal respiratory effort, no accessory muscle use Abdominal: Soft, nontender, non-distended, no guarding, rebound, or rigidity, normoactive bowel sounds, Skin: Warm, dry Extremities: No edema or contractures, lumbar spinal tenderness to palpation, LSO brace at the bedside Psychiatric: Alert and oriented to person, place and time, appropriate affect, Intact judgment Neuro: CN II-XII intact, Strength examination of LE limited due to pain - Labs CBC & Chem 7: 03/12/18 07:54 03/11/18 06:20 Assessment and Plan Plan: Acute L1 compression fracture - Ortho consulted, recs appreciated - MRI of lumbar spine appreciated - WIll c/w conservative management - C/w pain-control w/ [place] 10 and Morphine IR tabs q8h - Bedrest w/ LSO brace when ambulating - Dulcolax for constipation Urinary retention - Will remove Joel now and check post-void residual Elevated D-dimer - CTA neg for PE Elevated Troponin - Cardiology recs appreciated. Echocardiogram reviewed: EF normal 55-60% w/ mild pulm htn PASP 42.06 Normocytic anemia - Will check FOBT. Thrombocytopenia - Stable - Will monitor for now Anxiety, bipolar - C/w home meds: Seroquel and Ativan DVT//GI prophylaxis - IPCDs - No indication for GI prophylaxis Discussed with: patient Anticipated discharge date: 03/14/18 A total of 35 minutes was spent on the care of this complex patient more than 50 % of the time was spent in counseling and care coordination.
[2018-03-13] MEDS: QUEtiapine 100 MG TAB PO SCH (20:44)
--- NOTE | 2018-03-13 23:06 | P.PN ---
Progress Note - Text Progress Note Date: 03/13/18 Patient is a pleasant 62-year-old female who is seen today at the bedside following evaluation regards her acute traumatic L1 compression fracture deformity. She continues to have significant pain at the fracture site. Previously an Exos LSO brace has been delivered and fitted for the patient appropriately. She has been able to ambulate the hallways with this brace in tact. She has been wearing this brace during increased activities and ambulation and states it does provide some support for her lumbar spine. She continues to have some difficulty with numbness in the bilateral lower extremities. She is also experiencing urinary retention and she continues to have a Joel catheter in place. She has a history of previous morphine pump placement. Due to this, she was having difficulty obtaining an MRI lumbar spine. She has recently been able to obtain clearance in regards to her pump so that MRI of the lumbar spine can be performed. This MRI has been performed, interpreted and reviewed. She is eating without significant difficulty. Her pain is better controlled as long as she gets her medication as scheduled. Physical exam: Patient is awake, alert, and oriented 3 Vital signs stable Good chest excursion with deep inspiration and expiration; early on O2 nasal cannula Abdomen soft nontender Examination of lumbar spine reveals skin is intact with no abrasions, lacerations, or bruises; no erythema, purulence or signs of infection Evidence of a small well-healed incision along the [id number] lumbar spine and along the mid thoracic spine Evidence of bruising along the midline of the buttocks at the distal sacrum Generalized decreased sensation to palpation over the lower extremities Pain with palpation along the midline of the upper lumbar spine Dorsiflexion, plantarflexion, and extensor hallucis longus positive sustained bilaterally Lower extremity strength positive sustained for the bilateral lower extremities including hip flexion and knee extension Patient is able to independently without significant difficulty Patellar reflex 0+ bilaterally and Achilles reflexes 0+ bilaterally No lower extremity hyperreflexia bilaterally No signs or symptoms of DVT; no calf pain No pain with internal and external rotation of the hips bilaterally Vascularly intact bilaterally lower extremities Evidence of bruising over the right elbow No significant pain with palpation of the right elbow Active range of motion of the right elbow out of difficulty Joel catheter intact Pertinent studies: MRI of the thoracic spine and lumbar spine: Thoracic multilevel spondylosis with some degenerative disc disease at T7-8, T8-9, and T9-10; no evidence of significant canal stenosis or foraminal encroachment within the thoracic spine; thoracic cord signal is maintained; no evidence of significant disc herniation within the thoracic spine; L2-3 and L3-4 broad-based posterior disc protrusion with facet arthropathy and ligamentum flavum hypertrophy without significant central canal stenosis; L4-5 degenerative disc disease, grade 1 spondylolisthesis, facet arthropathy, and ligamentum flavum hypertrophy with some mass effect the thecal sac without evidence of significant central canal stenosis or neuroforaminal stenosis; L5-S1 degenerative disc disease, right posterior central disc protrusion contacting the anterior thecal sac and possibly the proximal S1 nerve roots on the right greater than the left and facet arthropathy; L1 superior endplate compression fracture deformity X-rays lumbosacral spine: L1 compression fracture deformity with approximately 10-15% height loss at the superior endplate; L4-5 and L5-S1 degenerative disc disease; evidence of morphine pump with leads extending to approximately T12-L1 X-rays of the thoracic spine: Negative thoracic spine exam; overall liability adequately maintained; no evidence of compression fracture X-rays of the right elbow: No evidence of fracture or dislocation at the elbow joint; possible 2 mm foreign body in the soft tissues of the distal forearm X-ray of the pelvis: No evidence of fracture; calcification of the left greater trochanter could be related to calcific bursitis Assessment: Acute traumatic L1 compression fracture deformity with approximately 10-15% height loss of superior endplate Intractable lumbar pain Inability to ambulate due to pain History of chronic pain with morphine pump placement Lumbar degenerative disc disease L4-5 spondylolisthesis Urinary retention Elevated cardiac enzymes Plan: 1. After reviewing MRI and x-ray imaging, physical examination the patient, and further discussion with the patient, we'll plan to continue with conservative treatment in regards to her L1 compression fracture deformity. A prescription for an LSO brace has been written and provided to case management yesterday. This brace has been delivered and fitted appropriately. She should continue to wear this brace while sitting upright at greater than 45, during ambulation, and during increase activities. She does not have to wear her brace while lying in bed or while bathing. MRIs of the thoracic and lumbar spine has been performed and interpreted. They have been reviewed. We not currently planning for further treatment or the possibility of surgical intervention currently in regards to her thoracic or lumbar spine. She does have evidence of degenerative changes without evidence of significant central canal stenosis or neuroforaminal stenosis. I do not see evidence within her thoracic spine or lumbar spine of significant compression which would correlate with her urinary retention. Her imaging results were discussed with the patient and we recommend she should continue with conservative treatment and further workup with medicine in regards to her urinary retention. She does have active full range of motion of the bilateral lower extremities. She states when she is unable to ambulate and perform adequate range of motion with the bilateral lower extremities it is due to her back pain and not specific inability to move her lower extremities. At this time we recommend continued conservative treatment in regards to her lower extremities and urinary retention. We will continue with bracing as previously discussed in regards her L1 compression fracture deformity. At this time, patient is clear for discharge from orthopedic spine standpoint once cleared by medicine and other medical providers. 2. Continue pain control medications as prescribed by medicine including [place] and morphine 3. Patient will continue be seen and examined by cardiology following elevated cardiac enzymes 4. We will continue to follow patient closely. 5. Patient has been discussed in detail with Dr. Bob Sheth and he agrees with this plan
[2018-03-14] MEDS: HYDROcodone/APAP 10-325MG 1 EACH TAB PO PRN ×2 (01:49→08:48)
[2018-03-14] MEDS: BACLOFEN 10 MG TAB PO PRN ×2 (07:48→16:52)
[2018-03-14] MEDS: PANTOPRAZOLE 40 MG TABLET PO SCH ×2 (08:22→16:52)
[2018-03-14] MEDS: NICOTINE 14MG/24HR PATCH TRANSDERM SCH (08:23)
[2018-03-14] MEDS: ASPIRIN 81 MG PO SCH (08:23)
[2018-03-14 08:30] LABS: HCT 32.3 % (34.0-46.0); HGB 10.4 gm/dL (11.4-16.0); MCH 29.9 pg (25.0-35.0); MCHC 32.1 g/dL (31.0-37.0); MCV 93.1 fL (80.0-100.0); Mean Platelet Volume 7.6; Platelet Count 179 k/uL (150-450); RBC 3.47 m/uL (3.80-5.40); RDW 13.7 % (11.5-15.5); WBC 9.5 k/uL (3.8-10.6)
[2018-03-14 08:44] LABS: Anion Gap 8 mmol/L; Blood Urea Nitrogen 9 mg/dL (7-17); Calcium 8.6 mg/dL (8.4-10.2); Carbon Dioxide 29 mmol/L (22-30); Chloride 101 mmol/L (98-107); Glucose 94 mg/dL (74-99); Potassium 3.6 mmol/L (3.5-5.1); Sodium 138 mmol/L (137-145)
[2018-03-14] MEDS: BISACODYL 5 MG TABLET.DR PO SCH (08:47)
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
[2018-03-14] MEDS: LORazepam 0.5 MG TAB PO PRN (13:08)
[2018-03-14 15:07] VITALS: BP 126/68; PULSE 102; RESP 18; TEMP 100.6
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
== END 2018-03-14 17:27 | disposition home or self-care (01) | DRG 552 ==
LOC: EC 11:27 → 6SEL 16:30 → 4MS4W 03-11 21:06
PROVIDERS: ADMIT Hospitalist; ATTEND Hospitalist
DX: S32.019A Unspecified fracture of first lumbar vertebra, initial encounter for closed fracture (principal); D69.6 Thrombocytopenia, unspecified; F17.200 Nicotine dependence, unspecified, uncomplicated; F31.9 Bipolar disorder, unspecified; F41.9 Anxiety disorder, unspecified; G89.29 Other chronic pain; I11.0 Hypertensive heart disease with heart failure; I50.9 Heart failure, unspecified; M43.16 Spondylolisthesis, lumbar region; M51.36 Other intervertebral disc degeneration, lumbar region; R32 Unspecified urinary incontinence; R79.1 Abnormal coagulation profile; W19.XXXA Unspecified fall, initial encounter; Z83.3 Family history of diabetes mellitus; Z86.73 Personal history of transient ischemic attack (TIA), and cerebral infarction without residual deficits; D63.8 Anemia in other chronic diseases classified elsewhere; Z88.0 Allergy status to penicillin; Z88.2 Allergy status to sulfonamides; Z79.891 Long term (current) use of opiate analgesic; Z79.899 Other long term (current) drug therapy; R77.8 Other specified abnormalities of plasma proteins; R33.9 Retention of urine, unspecified
CPT/HCPCS: 36415; 51701; 70450; 71046; 71275; 72070; 72100; 72125; 72146; 72148; 72170; 80048; 80053; 80061; 80306; 80320; 81001; 82550; 82553; 84484; 85025; 85027; 85379; 85610; 85730; 93005; 93306; 96361; 96374; 96375; 99285

== ENCOUNTER 2018-09-02 16:34 | Inpatient (IN) | payer BC, OTHER ==
--- NOTE | 2018-09-02 17:12 | ED ---
Overdose HPI - General Chief Complaint: Overdose Stated Complaint: POSS OVERDOSE Time Seen by Provider: 09/02/18 17:06 Source: EMS, RN notes reviewed, old records reviewed Mode of arrival: EMS Limitations: no limitations - History of Present Illness Initial Comments: This is a 8-year-old female the ER for evaluation. Patient's brought in for altered mental status and unresponsiveness. Patient is a poor historian so history obtained from both EMS as well as patient's family prior to coming to the ER today. Patient also has history obtained from prior charting MD Complaint: intentional overdose, accidental overdose -: days(s) Intent: unknown How Overdose Was Discovered: family/friend present at time, called 911 Context: Intentional Overdose: started new med recently Context: Accidental Overdose: medication error, uncertain what happened Associated Symptoms: depression, lethargy Treatments Prior to Arrival: oxygen, IV fluids - Related Data Home Medications Medication Instructions Recorded Confirmed HYDROcodone/APAP 10-325MG [[place] 1 tab PO TID-W/MEALS PRN 02/12/17 09/02/18 10-325] QUEtiapine [SEROquel] 100 mg PO HS 02/12/17 09/02/18 ALPRAZolam [Xanax] 0.25 mg PO DAILY PRN 03/10/18 09/02/18 Hydrochlorothiazide [Hydrodiuril] 25 mg PO DAILY 03/10/18 09/02/18 Irbesartan 300 mg PO DAILY 03/10/18 09/02/18 LORazepam [Ativan] 0.5 mg PO BID PRN 03/10/18 09/02/18 Omeprazole 20 mg PO BID 03/10/18 09/02/18 Atorvastatin Calcium [Lipitor] 20 mg PO DAILY 09/02/18 09/02/18 Cyclobenzaprine [Flexeril] 10 mg PO HS 09/02/18 09/02/18 Ergocalciferol (Vitamin D2) 50,000 unit PO Q7D 09/02/18 09/02/18 [Drisdol] Gabapentin [Neurontin] 300 mg PO DAILY 09/02/18 09/02/18 Morphine Sulfate ER [Ms Contin] 30 mg PO Q12HR 09/02/18 09/02/18 Allergies Allergy/AdvReac Type Severity Reaction Status Date / Time Sulfa (Sulfonamide Allergy Severe Rash/Hives Verified 09/02/18 19:14 Antibiotics) aspirin Allergy Unknown Verified 09/02/18 19:14 Penicillins Allergy Unknown Verified 09/02/18 19:14 Review of Systems ROS Statement: Those systems with pertinent positive or pertinent negative responses have been documented in the HPI. ROS Other: All systems not noted in ROS Statement are negative. Past Medical History Past Medical History: Heart Failure, CVA/TIA, Hypertension, Syncope Additional Past Medical History / Comment(s): chronic back pain, stroke in 2006, pt has pain pump History of Any Multi-Drug Resistant Organisms: None Reported Past Surgical History: Back Surgery Additional Past Surgical History / Comment(s): laproscopic surgery Past Psychological History: Anxiety, Bipolar, Depression Smoking Status: Current every day smoker Past Alcohol Use History: None Reported Past Drug Use History: None Reported - Past Family History Father Family Medical History: Diabetes Mellitus General Exam Limitations: altered mental status General appearance: alert, appears intoxicated, lethargic, obtunded Head exam: Present: atraumatic, normocephalic, normal inspection Eye exam: Present: normal appearance, PERRL, EOMI. Absent: scleral icterus, conjunctival injection, periorbital swelling ENT exam: Present: normal exam, mucous membranes dry Neck exam: Present: normal inspection. Absent: tenderness, meningismus, lymphadenopathy Respiratory exam: Present: normal lung sounds bilaterally. Absent: respiratory distress, wheezes, rales, rhonchi, stridor Cardiovascular Exam: Present: normal rhythm, tachycardia, normal heart sounds. Absent: systolic murmur, diastolic murmur, rubs, gallop, clicks GI/Abdominal exam: Present: soft, normal bowel sounds. Absent: distended, tenderness, guarding, rebound, rigid Extremities exam: Present: normal inspection, full ROM, normal capillary refill. Absent: tenderness, pedal edema, joint swelling, calf tenderness Back exam: Present: normal inspection Neurological exam: Present: alert, oriented X3, CN II-XII intact Psychiatric exam: Present: normal affect, normal mood Skin exam: Present: warm, dry, intact, normal color. Absent: rash Course Vital Signs 09/02/18 09/02/18 09/02/18 16:37 17:04 17:39 Temperature 98.2 F Pulse Rate 122 H 110 H Respiratory 18 16 16 Rate Blood Pressure 75/54 124/91 O2 Sat by Pulse 95 999 H Oximetry 03/11/19 03/11/19 03/11/19 17:56 19:31 19:52 Temperature 98 F Pulse Rate 120 H 122 H Respiratory 18 13 40 H Rate Blood Pressure 151/120 O2 Sat by Pulse 100 Oximetry 09/02/18 09/02/18 09/02/18 20:20 20:40 20:50 Temperature Pulse Rate 112 H 99 93 Respiratory 17 19 17 Rate Blood Pressure 137/90 119/106 121/78 O2 Sat by Pulse 97 97 Oximetry 09/02/18 09/02/18 09/02/18 21:10 21:20 21:40 Temperature Pulse Rate 90 87 90 Respiratory 16 14 20 Rate Blood Pressure 108/73 101/72 115/75 O2 Sat by Pulse 96 96 Oximetry 09/02/18 21:41 Temperature Pulse Rate Respiratory 14 Rate Blood Pressure O2 Sat by Pulse Oximetry - Reevaluation(s) Reevaluation #1: 09/02/18 22:15 Medical records reviewed Reevaluation #2: 09/02/18 22:15 Patient has recurrent episodes of somnolence and lethargy secondary to polysubstance overdose. Need for Narcan drip has been initiated Medical Decision Making - Medical Decision Making 62 female to ER for evaluation of Polysubstance nonintentional overdose. Patient on multiple medications including opiates, benzodiazepines, and psychiatric medications. Restart Narcan drip secondary to recurrent somnolence episodes. Patient to be admitted for continued monitoring - Lab Data Result diagrams: 09/02/18 18:00 09/02/18 18:00 Lab Results 09/02/18 09/02/18 09/02/18 Range/Units 18:00 18:00 18:00 WBC 7.1 (3.8-10.6) k/uL RBC 4.17 (3.80-5.40) m/uL Hgb 13.5 (11.4-16.0) gm/dL Hct 42.3 (34.0-46.0) % MCV 101.3 H (80.0-100.0) fL MCH 32.3 (25.0-35.0) pg MCHC 31.9 (31.0-37.0) g/dL RDW 17.1 H (11.5-15.5) % Plt Count 191 (150-450) k/uL Neutrophils % 72 % Lymphocytes % 18 % Monocytes % 5 % Eosinophils % 5 % Basophils % 1 % Neutrophils # 5.1 (1.3-7.7) k/uL Lymphocytes # 1.3 (1.0-4.8) k/uL Monocytes # 0.3 (0-1.0) k/uL Eosinophils # 0.3 (0-0.7) k/uL Basophils # 0.0 (0-0.2) k/uL Hypochromasia Slight Anisocytosis Slight Macrocytosis Slight Sodium 140 (137-145) mmol/L Potassium 4.0 (3.5-5.1) mmol/L Chloride 106 (98-107) mmol/L Carbon Dioxide 27 (22-30) mmol/L Anion Gap 7 mmol/L BUN 10 (7-17) mg/dL Creatinine 0.59 (0.52-1.04) mg/dL Est GFR (CKD-EPI)AfAm >90 (>60 ml/min/1.73 sqM) Est GFR (CKD-EPI)NonAf >90 (>60 ml/min/1.73 sqM) Glucose 110 H (74-99) mg/dL Calcium 9.2 (8.4-10.2) mg/dL Phosphorus 5.4 H (2.5-4.5) mg/dL Magnesium 1.7 (1.6-2.3) mg/dL Total Bilirubin 0.7 (0.2-1.3) mg/dL AST 16 (14-36) U/L ALT 23 (9-52) U/L Alkaline Phosphatase 88 (38-126) U/L Ammonia 24 (<30) umol/L Troponin I (0.000-0.034) ng/mL Total Protein 6.4 (6.3-8.2) g/dL Albumin 3.7 (3.5-5.0) g/dL Urine Opiates Screen (NotDetected) Ur Oxycodone Screen (NotDetected) Urine Methadone Screen (NotDetected) Ur Propoxyphene Screen (NotDetected) Ur Barbiturates Screen (NotDetected) U Tricyclic Antidepress (NotDetected) Ur Phencyclidine Scrn (NotDetected) Ur Amphetamines Screen (NotDetected) U Methamphetamines Scrn (NotDetected) U Benzodiazepines Scrn (NotDetected) Urine Cocaine Screen (NotDetected) U Marijuana (THC) Screen (NotDetected) 09/02/18 09/02/18 Range/Units 18:00 19:09 WBC (3.8-10.6) k/uL RBC (3.80-5.40) m/uL Hgb (11.4-16.0) gm/dL Hct (34.0-46.0) % MCV (80.0-100.0) fL MCH (25.0-35.0) pg MCHC (31.0-37.0) g/dL RDW (11.5-15.5) % Plt Count (150-450) k/uL Neutrophils % % Lymphocytes % % Monocytes % % Eosinophils % % Basophils % % Neutrophils # (1.3-7.7) k/uL Lymphocytes # (1.0-4.8) k/uL Monocytes # (0-1.0) k/uL Eosinophils # (0-0.7) k/uL Basophils # (0-0.2) k/uL Hypochromasia Anisocytosis Macrocytosis Sodium (137-145) mmol/L Potassium (3.5-5.1) mmol/L Chloride (98-107) mmol/L Carbon Dioxide (22-30) mmol/L Anion Gap mmol/L BUN (7-17) mg/dL Creatinine (0.52-1.04) mg/dL Est GFR (CKD-EPI)AfAm (>60 ml/min/1.73 sqM) Est GFR (CKD-EPI)NonAf (>60 ml/min/1.73 sqM) Glucose (74-99) mg/dL Calcium (8.4-10.2) mg/dL Phosphorus (2.5-4.5) mg/dL Magnesium (1.6-2.3) mg/dL Total Bilirubin (0.2-1.3) mg/dL AST (14-36) U/L ALT (9-52) U/L Alkaline Phosphatase (38-126) U/L Ammonia (<30) umol/L Troponin I <0.012 (0.000-0.034) ng/mL Total Protein (6.3-8.2) g/dL Albumin (3.5-5.0) g/dL Urine Opiates Screen Detected H (NotDetected) Ur Oxycodone Screen Not Detected (NotDetected) Urine Methadone Screen Not Detected (NotDetected) Ur Propoxyphene Screen Not Detected (NotDetected) Ur Barbiturates Screen Not Detected (NotDetected) U Tricyclic Antidepress Detected H (NotDetected) Ur Phencyclidine Scrn Not Detected (NotDetected) Ur Amphetamines Screen Not Detected (NotDetected) U Methamphetamines Scrn Not Detected (NotDetected) U Benzodiazepines Scrn Detected H (NotDetected) Urine Cocaine Screen Not Detected (NotDetected) U Marijuana (THC) Screen Not Detected (NotDetected) - EKG Data -: EKG Interpreted by Me (EKG shows sinus tachycardia rate of 114, CT 144, QRS 80, QTC 443) Critical Care Time Critical Care Time: Yes Total Critical Care Time: 31 Disposition Clinical Impression: Accidental drug ingestion, Drug overdose Disposition: ADMITTED IP TO THIS [facility] Condition: Serious Is patient prescribed a controlled substance at d/c from ED?: No
[2018-09-02] MEDS ORDERED: NALOXONE 0.4 MG/ML 10 ML VIAL IVP STA (17:33)
[2018-09-02] MEDS ORDERED: SODIUM CHLORIDE 0.9% 1,000 ML IV STA ×2 (17:40)
[2018-09-02 18:23] LABS: Anisocytosis Slight; Basophils % (A) 1 %; Eosinophils # (A) 0.3 k/uL (0-0.7); Eosinophils % (A) 5 %; HCT 42.3 % (34.0-46.0); HGB 13.5 gm/dL (11.4-16.0); Hypochromasia Slight; Lymphocytes # (A) 1.3 k/uL (1.0-4.8); Lymphocytes % (A) 18 %; MCH 32.3 pg (25.0-35.0); MCHC 31.9 g/dL (31.0-37.0); MCV 101.3 fL (80.0-100.0); Macrocytosis Slight; Mean Platelet Volume 6.4; Monocytes # (A) 0.3 k/uL (0-1.0); Monocytes % (A) 5 %; Neutrophils # (A) 5.1 k/uL (1.3-7.7); Neutrophils % (A) 72 %; Platelet Count 191 k/uL (150-450); RBC 4.17 m/uL (3.80-5.40); RDW 17.1 % (11.5-15.5); WBC 7.1 k/uL (3.8-10.6)
[2018-09-02 18:24] LABS: ALT 23 U/L (9-52); AST 16 U/L (14-36); Albumin 3.7 g/dL (3.5-5.0); Alkaline Phosphatase 88 U/L (38-126); Anion Gap 7 mmol/L; Blood Urea Nitrogen 10 mg/dL (7-17); Calcium 9.2 mg/dL (8.4-10.2); Carbon Dioxide 27 mmol/L (22-30); Chloride 106 mmol/L (98-107); Glucose 110 mg/dL (74-99); Magnesium 1.7 mg/dL (1.6-2.3); Phosphorus 5.4 mg/dL (2.5-4.5); Sodium 140 mmol/L (137-145); Total Bilirubin 0.7 mg/dL (0.2-1.3); Total Protein 6.4 g/dL (6.3-8.2)
[2018-09-02] MEDS ORDERED: NALOXONE 0.4 MG/ML 1 ML VIAL IV STA (19:14)
[2018-09-02] MEDS ORDERED: NALOXONE 0.4 MG/ML 10 ML VIAL IVP PRN (19:25)
[2018-09-02 19:27] LABS: Amphetamine Screen,Urine Not Detected (NotDetected); Barbiturate Screen,Urine Not Detected (NotDetected); Benzodiazepines Screen,Urine Detected (NotDetected); Cocaine Screen,Urine Not Detected (NotDetected); Methadone Screen, Urine Not Detected (NotDetected); Opiate Screen,Urine Detected (NotDetected); Oxycodone Screen, Urine Not Detected (NotDetected); Phencyclidine Screen,Urine Not Detected (NotDetected); Tricyclic Antidepressant,Urine Detected (NotDetected); Urn Cannabinoid Scrn Not Detected (NotDetected)
[2018-09-02] MEDS ORDERED: NALOXONE 0.4 MG/ML 1 ML VIAL IV PRN (19:32)
[2018-09-02] MEDS: NALOXONE 2 MG in SODIUM CHLORIDE 0.9% 250 ML IV SCH (21:41)
[2018-09-03 00:57] LABS: Glucose,Whole Blood 107 mg/dL (75-99)
[2018-09-03] MEDS: NALOXONE 2 MG in SODIUM CHLORIDE 0.9% 250 ML IV SCH ×2 (01:18→04:10)
[2018-09-03 05:45] LABS: Anisocytosis Slight; Basophils % (A) 1 %; Eosinophils # (A) 0.3 k/uL (0-0.7); Eosinophils % (A) 4 %; HCT 35.6 % (34.0-46.0); HGB 11.2 gm/dL (11.4-16.0); Hypochromasia Slight; Lymphocytes # (A) 1.4 k/uL (1.0-4.8); Lymphocytes % (A) 21 %; MCH 31.4 pg (25.0-35.0); MCHC 31.5 g/dL (31.0-37.0); MCV 99.9 fL (80.0-100.0); Macrocytosis Slight; Mean Platelet Volume 6.9; Monocytes # (A) 0.4 k/uL (0-1.0); Monocytes % (A) 6 %; Neutrophils # (A) 4.4 k/uL (1.3-7.7); Neutrophils % (A) 67 %; Platelet Count 194 k/uL (150-450); RBC 3.57 m/uL (3.80-5.40); RDW 16.4 % (11.5-15.5); WBC 6.6 k/uL (3.8-10.6)
[2018-09-03 05:54] LABS: Anion Gap 1 mmol/L; Blood Urea Nitrogen 9 mg/dL (7-17); Calcium 8.6 mg/dL (8.4-10.2); Carbon Dioxide 32 mmol/L (22-30); Chloride 107 mmol/L (98-107); Glucose 89 mg/dL (74-99); Magnesium 1.8 mg/dL (1.6-2.3); Phosphorus 3.8 mg/dL (2.5-4.5); Potassium 4.3 mmol/L (3.5-5.1); Sodium 140 mmol/L (137-145)
[2018-09-03] MEDS ORDERED: Magnesium Replacement Protocol 1 EACH MISC MISCELLANE PRN (05:56)
[2018-09-03] MEDS: MAGNESIUM SULFATE-D5W PMX 1 GM in DEXTROSE/WATER 1 100ML.BAG IVPB SCH ×2 (07:06→07:46)
--- NOTE | 2018-09-03 07:46 | CONS ---
CONSULTATION This is a pulmonary/critical care consultation. DATE OF CONSULTATION: September 03, 2018. This is a 62-year-old female who apparently was seen by Dr. Alcaraz in the emergency room last night. She apparently was brought into the ER because of altered mental status and unresponsiveness. She apparently was brought in by EMS. The patient is a very poor historian so not much history was obtained by the ER physician who did call me about this patient. We do not know whether not this is an intentional or accidental overdose. The patient is on a number of medications because of chronic back pain. She is currently on Ativan, Flexeril, Seroquel, Neurontin, MS Contin, Denton, and Xanax. She is getting this medication from her primary doctor. I did tell her that these are very powerful medications with lots of side effects and interactions and they need to be pared down. Anyway, she is much more awake and alert. Yesterday in the emergency room, she received some IV Narcan and then a Narcan drip was started and we put her in the ICU primarily for monitoring. This morning, she is awake and alert. She is not receiving any supplemental oxygen. She is on a 0.9 IV at 100 mL an hour and she is getting a Narcan drip 0.6 mg an hour and that has been running for some time. Her drug screen was positive for opiates, tricyclic antidepressants and benzodiazepines. She apparently has been on these medications for quite some time. Anyway, she is awake and alert. She has no major complaints today. Her major issues are her chronic back pain. MEDICATIONS: Her home medications include among other things Denton, Seroquel, Xanax, HydroDIURIL, irbesartan, lorazepam, omeprazole, atorvastatin, cyclobenzaprine, vitamin D2, Neurontin, and MS Contin. ALLERGIES: Allergies include SULFA ANTIBIOTICS, PENICILLIN ANTIBIOTICS, and aspirin. PAST MEDICAL HISTORY: Past medical history includes chronic back pain, CVA, previous pain pump, syncope, hypertension, and heart failure. She also apparently has a history of bipolar disorder, anxiety and depression. She is also a current everyday smoker. SURGICAL HISTORY: Surgical history includes laparoscopic procedures as well as back surgery. There is no history of any significant alcohol or illicit drug use apparently. FAMILY HISTORY: There is a family history of diabetes mellitus. She just mentioned to me that Dr. Issa is managing her pain. REVIEW OF SYSTEMS: CONSTITUTIONAL: Negative except for sleepiness, which is improved. NEUROLOGIC: Negative. HEENT: Negative. CARDIOVASCULAR: Negative. PULMONARY: Negative. GI: Negative. : Negative. RHEUMATOLOGIC: Chronic back pain. HEMATOLOGIC: Negative. ENDOCRINOLOGIC: Negative. DERMATOLOGIC: Negative. PHYSICAL EXAMINATION: Current vital signs are reviewed. Temperature is 98, heart rate 79, respiratory rate 20, blood pressure 136/80, mean of 98 and a room air saturation between 93% and 97%. She appears in no acute distress. She is awake and alert. She is oriented x3. HEENT examination is grossly unremarkable. Mucous membranes are moist. NECK: Supple. Full range of motion. No adenopathy or thyromegaly. Neck veins are flat. Cardiovascular examination reveals regular rhythm and rate. S1, S2 normal. There is no S3, S4, or murmur. Lungs reveal relatively clear breath sounds. There is no wheezes, rhonchi, or crackles. Breath sounds are equal bilaterally. ABDOMEN: Soft. Bowel sounds are heard. There is no masses or tenderness. Extremities are intact. There is no cyanosis, clubbing, or edema. Skin without rash. Neurologic examination is nonfocal. She does move all 4 extremities well. The patient did not have a chest x-ray. Labs were reviewed. White count 6.6, hemoglobin 11.2, hematocrit 35.6, platelet count a 194,000. Sodium 140, potassium 4.3, chloride 107, CO2 of 32. Anion gap is normal. BUN and creatinine were normal. Her phosphorus was 5.4. The rest of the liver function tests were normal. Her drug screen as mentioned earlier was positive for opiates, benzodiazepines and tricyclic antidepressants. Current medications are reviewed. She is basically just on the IV Protonix for GI prophylaxis, the Narcan drip which has been discontinued, the magnesium replacement and Lovenox. ASSESSMENT: 1. Accidental versus intentional overdose with narcotics with mental status changes, improved with fluids and IV Narcan. 2. History of chronic back pain, on multiple medications including Denton, Seroquel, Xanax, Ativan, Flexeril, Neurontin, and MS Contin. 3. History of congestive heart failure. 4. History of cerebrovascular accident. 5. History of hypertension. 6. History of hyperlipidemia. 7. History of syncope. 8. History of chronic back pain and previous back surgery. 9. History of anxiety. 10.History of bipolar disorder. PLAN: The patient is doing well. The patient can be transferred out of the ICU. The patient should be seen by Psychiatry. Should also see a pain specialist for better management of her pain. Additional recommendations and suggestions are forthcoming. Overall prognosis is very guarded. She seemed a bit cavalier about the fact that she is on all these medications. I asked her who was managing her. She said her primary doctor. Additional recommendations and suggestions are forthcoming. MMODL / IJN: [id number] /
[2018-09-03] MEDS ORDERED: PANTOPRAZOLE 40 MG/10 ML VIAL IV SCH (09:00)
[2018-09-03] MEDS ORDERED: ENOXAPARIN 40 MG/0.4 ML SYRINGE SQ SCH (09:00)
[2018-09-03 10:36] VITALS: BMI 26.9
--- NOTE | 2018-09-03 13:20 | P.CN ---
Psychiatric Consult - . Consult date: 09/03/18 Consult:: 09/03/18 10:00 Possible overdose versus overdose? Assessment and Plan Assessment: This is a 8-year-old female the ER for evaluation. Patient's brought in for altered mental status and unresponsiveness. Patient is a poor historian so history obtained from both EMS as well as patient's family prior to coming to the ER today. Patient also has history obtained from prior charting. Patient states she came via EMS because she was having syncopal has episodes and admits to no overdose MD Complaint: intentional overdose, accidental overdose -: days(s) Intent: unknown How Overdose Was Discovered: family/friend present at time, called 911 Context: Intentional Overdose: started new med recently Context: Accidental Overdose: medication error, uncertain what happened Associated Symptoms: depression, lethargy Treatments Prior to Arrival: oxygen, IV fluids - Related Data Home Medications Medication Instructions Recorded Confirmed HYDROcodone/APAP 10-325MG [Bagley 1 tab PO TID-W/MEALS PRN 02/12/17 09/02/18 10-325] QUEtiapine [SEROquel] 100 mg PO HS 02/12/17 09/02/18 ALPRAZolam [Xanax] 0.25 mg PO DAILY PRN 03/10/18 09/02/18 Hydrochlorothiazide [Hydrodiuril] 25 mg PO DAILY 03/10/18 09/02/18 Irbesartan 300 mg PO DAILY 03/10/18 09/02/18 LORazepam [Ativan] 0.5 mg PO BID PRN 03/10/18 09/02/18 Omeprazole 20 mg PO BID 03/10/18 09/02/18 Atorvastatin Calcium [Lipitor] 20 mg PO DAILY 09/02/18 09/02/18 Cyclobenzaprine [Flexeril] 10 mg PO HS 09/02/18 09/02/18 Ergocalciferol (Vitamin D2) 50,000 unit PO Q7D 09/02/18 09/02/18 [Drisdol] Gabapentin [Neurontin] 300 mg PO DAILY 09/02/18 09/02/18 Morphine Sulfate ER [Ms Contin] 30 mg PO Q12HR 09/02/18 09/02/18 Allergies Allergy/AdvReac Type Severity Reaction Status Date / Time Sulfa (Sulfonamide Allergy Severe Rash/Hives Verified 03/11/19 19:14 Antibiotics) aspirin Allergy Unknown Verified 09/02/18 19:14 Penicillins Allergy Unknown Verified 09/02/18 19:14 Past Medical History Past Medical History: Heart Failure, CVA/TIA, Hypertension, Syncope Additional Past Medical History / Comment(s): chronic back pain, stroke in 2006, pt has pain pump History of Any Multi-Drug Resistant Organisms: None Reported Past Surgical History: Back Surgery Additional Past Surgical History / Comment(s): laproscopic surgery Past Psychological History: Anxiety, Bipolar, Depression Smoking Status: Current every day smoker Past Alcohol Use History: None Reported Past Drug Use History: None Reported - Past Family History Father Family Medical History: Diabetes Mellitus Mental status examination: The patient presents alert, pleasant, and cooperative. There calmly seated without any agitated behavior. [She] reports that [her she] mood is good. Affect is congruent and euthymic. [] deny having any suicidal or homicidal ideation intent or plan. [She] denies any auditory or visual hallucinations. There is no evidence of any delusional thought content. [Her] thought process is linear and goal-directed. [Her] speech is fluent and nonpressured. [Her] memory and concentration is grossly intact for the purposes of this session. Psychiatric impression: Adjustment disorderly remission Psychiatric recommendations: Continue her home medications no addition for any other intervention at this time she does not need inpatient psychiatric care at this time Thank you for the consult Michael Burgess D.O. PhD (1) Adjustment disorder in remission Current Visit: Yes Status: Acute Code(s): F43.20 - ADJUSTMENT DISORDER, UNSPECIFIED SNOMED Code(s): 232296682 Time with Patient: Less than 30
[2018-09-03] MEDS ORDERED: HYDROcodone/APAP 10-325MG 1 EACH TAB PO PRN (19:56)
[2018-09-03] MEDS ORDERED: LORazepam 0.5 MG TAB PO PRN (19:56)
[2018-09-03] MEDS ORDERED: ALPRAZolam 0.25 MG TAB PO PRN (19:56)
[2018-09-03] MEDS ORDERED: ATORVASTATIN 20 MG TAB PO SCH (20:00)
--- NOTE | 2018-09-03 20:58 | HP ---
HISTORY AND PHYSICAL DATE OF ADMISSION: 09/02/2018 DATE OF SERVICE: 09/02/2018 PRESENTING COMPLAINT: Possibly passed out. HISTORY OF PRESENTING COMPLAINT: This is a 62-year-old patient who follows with Dr. Issa in [place]. Chronic stable medical conditions include hypertension, bipolar disorder, controlled. She has been off medications. She has chronic low back pain, anxiety, L1 compression fracture not too long ago, questionable history of congestive heart failure. Her last echocardiogram in February of 2018 showed preserved LV function. She has questionable remote history of TIA. The patient also has a pain pump. Patient describes episodes as what she calls syncope, but actually she says she has told her daughter any time she finds her sleeping for too long to bring her to the hospital. She is due to follow up with Dr. Milian, neurologist. The patient presented to the ER yesterday evening. She was found to be less responsive, brought in by the family. Per the EMS report, when they arrived they were told by the family that the patient was not her normal self. Apparently the patient had accidentally overdosed on a prescribed medication and she was brought in. Patient has a morphine pain pump for chronic spinal pump. The patient did get some Narcan, with which there was some improvement, and the patient was brought down to the ER. The patient stated to me, when I saw this patient this morning, that her sleep pattern is altered and did repeat that she has told her family and her daughter to bring her in if she does not wake up. Otherwise, no seizure activity was described. There was no focal weakness. REVIEW OF SYSTEMS: CONSTITUTIONAL: None. HEENT: None. RESPIRATORY: None. CARDIOVASCULAR: None. GASTROINTESTINAL: None. GENITOURINARY: None. MUSCULOSKELETAL: Lower back pain. DERMATOLOGICAL: None. HEMATOLOGICAL: None. LYMPHATICS: None. PSYCHIATRY: Some anxiety. NEUROLOGICAL: Nil focal. PAST MEDICAL HISTORY: 1. Hypertension. 2. Bipolar disorder, controlled off medications. 3. Chronic low back pain with L1 fracture. 4. Anxiety. 5. Questionable diagnosis of CHF. 6. Chronic pain syndrome. 7. Questionable TIA. PAST SURGICAL HISTORY: 1. Laparoscopic surgery. 2. Back surgery. SOCIAL HISTORY: The patient is a smoker. No alcohol. Lives with her . FAMILY HISTORY: Diabetes. HOME MEDICATIONS: 1. Ativan 0.5 p.o. b.i.d. p.r.n.. 2. Irbesartan 300 mg p.o. daily. 3. Hydrochlorothiazide 25 mg p.o. daily. 4. Flexeril 10 mg at bedtime. 5. Seroquel 100 mg at bedtime. 6. Neurontin 300 mg p.o. daily. 7. MS Contin 30 mg q.12. 8. Hustler 10 one tablet p.o. t.i.d. with meals p.r.n. 9. Omeprazole 20 mg b.i.d. 10.Vitamin D2 50,000 units every 7 days. 11.Lipitor 20 mg p.o. daily. 12.Xanax 0.25 p.o. daily p.r.n. ALLERGIES: 1. SULFA. 2. ASPIRIN. 3. PENICILLIN. PHYSICAL EXAMINATION: VITAL SIGNS ON PRESENTATION: Temperature 98.2, pulse 122, respiration 18, blood pressure 75/54. Repeat blood pressure was 124/91. Pulse ox 95% on room air. GENERAL APPEARANCE: Average build. Lying in bed, awake, comfortable. EYES: Pupils equal. Conjunctivae normal. HEENT: External appearance of nose and ears normal. Oral cavity normal. NECK: JVD not raised. Mass not palpable. RESPIRATORY: Effort normal. LUNGS: Diminished breath sounds. CARDIOVASCULAR: First and second sounds normal. No edema. ABDOMEN: Soft, non-tender. Liver and spleen not palpable. LYMPHATIC: No lymph node palpable in neck or axillae. PSYCHIATRY: Patient is able to answer questions normally. Slightly anxious. NEUROLOGICAL: Pupils equal. No facial asymmetry. Power and sensation grossly intact. INVESTIGATIONS: White count 7.1, hemoglobin 13.5. Potassium 4.0. BUN and creatinine are normal. Urine drug screen positive for opiates, tricyclic antidepressants, benzodiazepine. EKG tracing, personally reviewed by me, shows sinus tachycardia. ASSESSMENT: 1. Acute metabolic encephalopathy as per history. Patient actually took some extra medications. There are no signs of any exacerbation of anxiety or depression other than baseline. 2. Chronic bipolar disorder, controlled. 3. Chronic low back pain from L1 fracture. Patient has a pain pump in place. 4. Essential hypertension. 5. Anxiety not otherwise specified. PLAN: Patient did explain to me that she has these episodes when she will not wake up at times and is concerned about underlying seizure activity. I did order an EEG. I was told that the EEG may not be done until tomorrow. Psychiatry was also consulted; a note from earlier did indicate that patient can be continued on home medications. As patient was admitted to the ICU, Dr. Dickinson did see the patient from Critical Care. Depending on what the EEG reads tomorrow, if that is negative, then patient could be discharged home. Will stop patient's Xanax. RAMÍREZ / NIMISHAN: [id number] /
[2018-09-03] MEDS ORDERED: QUEtiapine 100 MG TAB PO SCH (21:00)
[2018-09-03] MEDS ORDERED: MORPHINE SULFATE ER 30 MG TABLET PO SCH (21:00)
[2018-09-03] MEDS ORDERED: NON-FORMULARY DRUG (Omeprazole [Omeprazole] 20 MG) PO SCH (21:00)
[2018-09-03] MEDS ORDERED: CYCLOBENZAPRINE 10 MG TAB PO SCH (21:00)
--- NOTE | 2018-09-03 21:43 | EEG ---
ELECTROENCEPHALOGRAM REPORT DATE OF SERVICE: 09/03/2018. ELECTROENCEPHALOGRAM (EEG): TECHNIQUE: A routine 18-channel EEG was performed with video using the 10-20 international electrode placement system. HISTORY: Altered level of consciousness. CURRENT MEDICATIONS: Narcan, Lovenox, aspirin. STUDY DURATION: 30 minutes. FINDINGS: BACKGROUND: The background activity consisted of unsustained 6-7 Hz rhythmic waveforms symmetrically distributed over both posterior quadrants. ACTIVATION: Hyperventilation: Not performed. Photic stimulation: Mild symmetric driving seen. Sleep: Drowsy. ABNORMALITIES: Diffuse 4-6 Hz polymorphic theta range slowing was seen. IMPRESSION: Abnormal EEG. The diffuse polymorphic theta range slowing mentioned above is not epileptiform in nature. In combination with the slow background, these findings indicate moderate diffuse cerebral dysfunction as may be seen in a toxometabolic encephalopathy. No seizures were recorded. No epileptiform activity was present. These findings were called to the physician taking care of the patient at 8:28 p.m. 09/03/2018. MMODL / IJN: [id number] /
[2018-09-04 05:29] LABS: Anisocytosis Slight; Basophils % (A) 1 %; Eosinophils # (A) 0.3 k/uL (0-0.7); Eosinophils % (A) 5 %; HCT 34.7 % (34.0-46.0); Hypochromasia Slight; Lymphocytes # (A) 1.9 k/uL (1.0-4.8); Lymphocytes % (A) 32 %; MCH 32.1 pg (25.0-35.0); MCHC 31.8 g/dL (31.0-37.0); Macrocytosis Slight; Mean Platelet Volume 6.6; Monocytes # (A) 0.3 k/uL (0-1.0); Monocytes % (A) 5 %; Neutrophils # (A) 3.4 k/uL (1.3-7.7); Neutrophils % (A) 57 %; Platelet Count 182 k/uL (150-450); RBC 3.44 m/uL (3.80-5.40); RDW 16.6 % (11.5-15.5)
[2018-09-04 06:26] VITALS: BP 153/95; PULSE 103; RESP 18; TEMP 98.2
[2018-09-04] MEDS ORDERED: GABAPENTIN 300 MG CAP PO SCH (09:00)
--- NOTE | 2018-09-04 10:17 | PN ---
PROGRESS NOTE DATE OF SERVICE: 09/04/2018. This is a 62-year-old female with an accidental overdose of narcotics and other mind- altering drugs. She came to the emergency department with mental status changes and required IV push Narcan and IV Narcan by drip. The patient apparently has a history of chronic back pain for which she is on multiple medications including Burt, Seroquel, Xanax, Ativan, Flexeril, Neurontin, and MS Contin. She also has a history of multiple other medical problems. Anyway, she was seen by Psychiatry and cleared. The patient is doing well. The patient's Narcan drip was discontinued yesterday. The patient is currently not receiving any supplemental oxygen and no IV. The patient is to be discharged home today. Again, the patient was cleared by Psychiatry. She does have a history of CHF, CVA, hypertension, hyperlipidemia, syncope, chronic back pain, anxiety, and bipolar disorder. Current vital signs are reviewed: Temperature is 98.2 heart rate 88, respiratory rate 18, blood pressure 114/71, mean 85, and room air saturation between 92% to 94%. Appears in no acute distress. HEENT examination is grossly unremarkable. Mucous membranes are moist. No supplemental oxygen needed. NECK: Supple. Full range of motion. No adenopathy or thyromegaly. Neck veins are flat. Cardiovascular examination reveals regular rhythm and rate. S1, S2 normal. Heart rate 88. No murmur. Lungs reveal clear breath sounds. No wheezes, rhonchi, or crackles. Breath sounds are equal bilaterally. Abdomen is soft. Bowel sounds are heard. Extremities are intact. No cyanosis, clubbing, or edema. Skin without rash. Neurologic examination is brief but nonfocal. Current labs are reviewed. White count 6, hemoglobin 11.0, hematocrit 34.7, platelet count 182,000. No additional labs are noted. Medications are reviewed. No chest x-ray noted. ASSESSMENT: 1. Accidental overdose with narcotics causing mental status changes, now which have improved and are back to baseline. IV Narcan was employed. 2. History of chronic back pain, on multiple medications including Burt, Seroquel, Xanax, Ativan, Flexeril, Neurontin, and MS Contin. 3. History of congestive heart failure. 4. History of cerebrovascular accident. 5. Hypertension by history. 6. Hyperlipidemia by history. 7. History of syncope. 8. History of chronic back pain with previous back surgery. 9. History of anxiety. 10.History of bipolar disorder. PLAN: The patient will be discharged home today. She has been cleared by Psychiatry. The Narcan drip was discontinued yesterday. I did area counselor her about the importance of getting proper management of her pain and she should see a pain specialist. She is on way too many medications in my opinion and I think it is very likely that this scenario may happen again. No additional recommendations are made. We will continue to follow as needed. MMODL / IJN: [id number] /
--- NOTE | 2018-09-05 23:24 | DS ---
DISCHARGE SUMMARY DATE OF ADMISSION: 09/02/2018 DATE OF DISCHARGE: 09/03/2018 DATE OF SERVICE: 09/03/2018 FINAL DIAGNOSES: 1. Acute metabolic encephalopathy from accidental overdose of pain medications. 2. Chronic bipolar disorder. 3. Chronic low back pain from L1 fracture. 4. Essential hypertension. 5. Anxiety not otherwise specified. HOSPITAL COURSE: This patient has a pain pump in place and pain medications. Medications are being followed by Dr. Issa. She presented with an episode where she was not able to be woken up. She had told her daughter to bring her to the hospital if that was to happen. The patient did take some accidental overdose of medication. Seen by Psychiatry and was cleared. I did tell the patient to follow up with Dr. Issa scale back some of the medication, as this may be causing the same. Xanax is being discontinued. The patient is back to her baseline, tolerating a diet, comfortable. PHYSICAL EXAMINATION: Temperature 97.7, pulse 88, respiration 18, blood pressure 150/97, pulse ox 94% on room air. LUNGS: Fair air entry. CARDIOVASCULAR: First and second sounds normal. Alert and oriented x3. INVESTIGATIONS: White count 6, hemoglobin 11. CONSULTATIONS: 1. Dr. Dickinson from Critical Care. 2. Dr. Burgess from Psychiatry. DISCHARGE MEDICATIONS: 1. Ogema 10 one tablet t.i.d. with meals p.r.n. 2. Seroquel 100 mg at bedtime. 3. Irbesartan 300 mg p.o. daily. 4. Ativan 0.5 mg p.o. b.i.d. p.r.n. 5. Omeprazole 20 mg b.i.d. 6. Lipitor 20 mg p.o. daily. 7. Flexeril 10 mg at bedtime. 8. Vitamin D2 50,000 units every 7 days. 9. Neurontin 300 mg p.o. daily. 10.Morphine sulfate ER 30 mg p.o. q.12. Discontinued medications include Xanax 0.25 p.o. daily p.r.n. and hydrochlorothiazide. Follow up with Dr. Milian. The patient is scheduled to see him. Follow up with Dr. Juan Diego Issa in [place] in 1 or 2 days. MMODL / IJN: [id number] /
--- NOTE | 2018-09-05 23:48 | DS ---
DISCHARGE SUMMARY ADDENDUM TO DISCHARGE SUMMARY: DATE OF ADMISSION: 09/02/2018 DATE OF DISCHARGE: 09/03/2018. ADDENDUM: I did order an EEG, and this was read by Dr. Pinzon from [facility]. He called me that the EEG did not show any seizure activity but shows some evidence of slowing which is compatible with encephalopathy, which the patient had. MMMARIANA / NIMISHAN: [id number] /
== END 2018-09-04 08:15 | disposition home or self-care (01) | DRG 917 ==
LOC: EC 16:34 → 3SCARD 21:04 → 2SICU 21:04 → UNDOADMIN 21:04 → 2SICU 09-03 00:40
PROVIDERS: ADMIT Hospitalist; ATTEND Hospitalist
DX: T40.601A Poisoning by unspecified narcotics, accidental (unintentional), initial encounter (principal); G92 Toxic encephalopathy; M48.56XA Collapsed vertebra, not elsewhere classified, lumbar region, initial encounter for fracture; I11.0 Hypertensive heart disease with heart failure; I50.9 Heart failure, unspecified; E78.5 Hyperlipidemia, unspecified; F17.200 Nicotine dependence, unspecified, uncomplicated; F41.9 Anxiety disorder, unspecified; G89.4 Chronic pain syndrome; F32.9 Major depressive disorder, single episode, unspecified; Z79.899 Other long term (current) drug therapy; Z79.891 Long term (current) use of opiate analgesic; Z88.6 Allergy status to analgesic agent; Z88.0 Allergy status to penicillin; Z88.2 Allergy status to sulfonamides; Z86.73 Personal history of transient ischemic attack (TIA), and cerebral infarction without residual deficits; Z83.3 Family history of diabetes mellitus
CPT/HCPCS: 36415; 51701; 80048; 80053; 80306; 82140; 83735; 84100; 84484; 85025; 93005; 95816; 96361; 96365; 96366; 96376; 99291

== ENCOUNTER 2018-11-15 14:42 | Emergency (ER) | payer BC ==
[2018-11-15 15:12] VITALS: RESP 18; TEMP 98
[2018-11-15] MEDS ORDERED: MORPHINE SULFATE 2 MG/ML SYRINGE IVP STA (15:27)
[2018-11-15] MEDS ORDERED: SODIUM CHLORIDE 0.9% 500 ML IV STA (15:29)
--- NOTE | 2018-11-15 15:30 | ED ---
General Adult HPI - General Chief complaint: Nausea/Vomiting/Diarrhea Stated complaint: vomiting Time Seen by Provider: 11/15/18 15:15 Source: patient Mode of arrival: ambulatory Limitations: no limitations - History of Present Illness Initial comments: Dictation was produced using [employer] dictation software. please excuse any grammatical, word or spelling errors. Chief Complaint: 62-year-old female with past medical history of heart failure, syncope, hypertension, CVA, chronic back pain presents with feeling unwell since History of Present Illness: Since Sunday she's been feeling unwell. She states she's been having fever, chills and night sweats. She's been under a lot of stress recently because of her who requires a lot of medical attention. She reports that she has had mild sore throat, runny nose. Denies any overt sick contacts. Patient has multiple medical comorbidities and she feels as though the last 5 days her symptoms have been exacerbated. Patient's past medical history of chronic back pain status post painful. Pain is worse in usual she interprets this from her recent illness. She did report having a temperature 103 at home. She recently had pneumonia and was admitted recently. Denies any diarrhea. Denies any abdominal pain or chest pain. The ROS documented in this emergency department record has been reviewed and confirmed by me. Those systems with pertinent positive or negative responses have been documented in the HPI. All other systems are other negative and/or noncontributory. PHYSICAL EXAM: General Impression: Alert and oriented x3, not in acute distress HEENT: Normocephalic atraumatic, extra-ocular movements intact, pupils equal and reactive to light bilaterally, dry mucous membranes, mild pharyngeal erythema Cardiovascular: Heart regular rate and rhythm, S1&S2 audible, no murmurs, rubs or gallops Chest: Lungs clear to auscultation bilaterally, no rhonchi, no wheeze, no rales Abdomen: Bowel sounds present, abdomen soft, non-tender, non-distended, no organomegaly Musculoskeletal: Pulses present and equal in all extremities, no peripheral edema Motor: no focal deficits noted Neurological: CN II-XII grossly intact, no focal motor or sensory deficits noted Skin: Intact with no visualized rashes Psych: Normal affect and mood ED course: 62 y old female presents with chief complaint of generalized malaise. She does not have any clear localizing symptoms at this time. Vital signs upon arrival shows central 98.0. She states she took a Tylenol torsade to arrival. Patient's blood pressure 99/77, pulse 1:30, 94% on room air.Laboratory evalua tion obtained. CBC unr slight erythrocytosis with a hemoglobin of 16.2. Metabolic panel is unremarkable. Patient appears slightly dehydrated with elevated BUN/creatinine ratio. Urinalysis obtained showing mild urinary white blood cells. Group A strep negative. Chest x-ray is unremarkable. He is given IV analgesia. Patient does report slight rash after trying on the T-sheet that she found on [employer] swap. Patient's rash secondary to contact dermatitis. Patient be discharged. Patient's clinical presentation consistent with chronic pain. There is no clear cause of patient's vomiting and weakness. Patient told to maintain adequate hydration. Patient prescribed Atarax and a Biaxin for urinary tract infection. EKG interpretation: Ventricular rate 101, sinus tachycardia,. 134, care is 80, QTc 420. No ID prolongation, no QTC prolongation, no ST or T-wave changes noted. Overall, this EKG is unremarkable - Related Data Home Medications Medication Instructions Recorded Confirmed HYDROcodone/APAP 10-325MG [[place] 1 tab PO TID-W/MEALS PRN 02/12/17 11/15/18 10-325] QUEtiapine [SEROquel] 100 mg PO HS 02/12/17 11/15/18 Irbesartan 300 mg PO DAILY 03/10/18 11/15/18 LORazepam [Ativan] 0.5 mg PO BID PRN 03/10/18 11/15/18 Omeprazole 20 mg PO BID 03/10/18 11/15/18 Atorvastatin Calcium [Lipitor] 20 mg PO DAILY 09/02/18 11/15/18 Cyclobenzaprine [Flexeril] 10 mg PO HS 09/02/18 11/15/18 Ergocalciferol (Vitamin D2) 50,000 unit PO STEVENSON 09/02/18 11/15/18 [Drisdol] Morphine Sulfate ER [Ms Contin] 30 mg PO Q12HR 09/02/18 11/15/18 ALPRAZolam [Xanax] 0.25 mg PO BID PRN 11/15/18 11/15/18 Previous Rx's Medication Instructions Recorded Cephalexin [Keflex] 500 mg PO Q6HR 5 Days #20 cap 11/15/18 hydrOXYzine HCL [Atarax] 10 mg PO TID PRN #12 tab 11/15/18 Allergies Allergy/AdvReac Type Severity Reaction Status Date / Time Sulfa (Sulfonamide Allergy Severe Rash/Hives Verified 11/15/18 15:56 Antibiotics) aspirin Allergy Unknown Verified 11/15/18 15:56 Penicillins Allergy Unknown Verified 11/15/18 15:56 Review of Systems ROS Statement: Those systems with pertinent positive or pertinent negative responses have been documented in the HPI. ROS Other: All systems not noted in ROS Statement are negative. Past Medical History Past Medical History: Heart Failure, CVA/TIA, Hypertension, Syncope Additional Past Medical History / Comment(s): chronic back pain, stroke in 2005, pt has pain pump History of Any Multi-Drug Resistant Organisms: None Reported Past Surgical History: Back Surgery Additional Past Surgical History / Comment(s): laproscopic surgery Past Psychological History: Anxiety, Bipolar, Depression Smoking Status: Current every day smoker Past Alcohol Use History: None Reported Past Drug Use History: None Reported - Past Family History Father Family Medical History: Diabetes Mellitus General Exam Limitations: no limitations Course Vital Signs 11/15/18 15:09 Temperature 98.0 F Pulse Rate 130 H Respiratory 18 Rate Blood Pressure 99/77 O2 Sat by Pulse 94 L Oximetry Medical Decision Making - Lab Data Result diagrams: 11/15/18 15:57 11/15/18 15:57 Lab Results 11/15/18 11/15/18 11/15/18 Range/Units 15:57 15:57 15:57 WBC 9.7 (3.8-10.6) k/uL RBC 5.27 (3.80-5.40) m/uL Hgb 16.2 H (11.4-16.0) gm/dL Hct 48.7 H (34.0-46.0) % MCV 92.3 (80.0-100.0) fL MCH 30.8 (25.0-35.0) pg MCHC 33.4 (31.0-37.0) g/dL RDW 14.2 (11.5-15.5) % Plt Count 310 (150-450) k/uL Neutrophils % 82 % Lymphocytes % 12 % Monocytes % 4 % Eosinophils % 1 % Basophils % 0 % Neutrophils # 7.9 H (1.3-7.7) k/uL Lymphocytes # 1.2 (1.0-4.8) k/uL Monocytes # 0.4 (0-1.0) k/uL Eosinophils # 0.1 (0-0.7) k/uL Basophils # 0.0 (0-0.2) k/uL Sodium 134 L (137-145) mmol/L Potassium 4.5 (3.5-5.1) mmol/L Chloride 94 L (98-107) mmol/L Carbon Dioxide 29 (22-30) mmol/L Anion Gap 11 mmol/L BUN 26 H (7-17) mg/dL Creatinine 0.74 (0.52-1.04) mg/dL Est GFR (CKD-EPI)AfAm >90 (>60 ml/min/1.73 sqM) Est GFR (CKD-EPI)NonAf 89 (>60 ml/min/1.73 sqM) Glucose 101 H (74-99) mg/dL Plasma Lactic Acid Kaushal 1.7 (0.7-2.0) mmol/L Calcium 10.5 H (8.4-10.2) mg/dL Magnesium 2.0 (1.6-2.3) mg/dL Total Bilirubin 1.1 (0.2-1.3) mg/dL AST 19 (14-36) U/L ALT 17 (9-52) U/L Alkaline Phosphatase 114 (38-126) U/L Creatine Kinase 46 (30-135) U/L Total Protein 8.3 H (6.3-8.2) g/dL Albumin 5.0 (3.5-5.0) g/dL Urine Color Urine Appearance (Clear) Urine pH (5.0-8.0) Ur Specific [place] (1.001-1.035) Urine Protein (Negative) Urine Glucose (UA) (Negative) Urine Ketones (Negative) Urine Blood (Negative) Urine Nitrite (Negative) Urine Bilirubin (Negative) Urine Urobilinogen (<2.0) mg/dL Ur Leukocyte Esterase (Negative) Urine RBC (0-5) /hpf Urine WBC (0-5) /hpf Ur Squamous Epith Cells (0-4) /hpf Hyaline Casts (0-2) /lpf Urine Mucus (None) /hpf Group A Strep Rapid (Negative) 11/15/18 11/15/18 Range/Units 16:00 16:00 WBC (3.8-10.6) k/uL RBC (3.80-5.40) m/uL Hgb (11.4-16.0) gm/dL Hct (34.0-46.0) % MCV (80.0-100.0) fL MCH (25.0-35.0) pg MCHC (31.0-37.0) g/dL RDW (11.5-15.5) % Plt Count (150-450) k/uL Neutrophils % % Lymphocytes % % Monocytes % % Eosinophils % % Basophils % % Neutrophils # (1.3-7.7) k/uL Lymphocytes # (1.0-4.8) k/uL Monocytes # (0-1.0) k/uL Eosinophils # (0-0.7) k/uL Basophils # (0-0.2) k/uL Sodium (137-145) mmol/L Potassium (3.5-5.1) mmol/L Chloride (98-107) mmol/L Carbon Dioxide (22-30) mmol/L Anion Gap mmol/L BUN (7-17) mg/dL Creatinine (0.52-1.04) mg/dL Est GFR (CKD-EPI)AfAm (>60 ml/min/1.73 sqM) Est GFR (CKD-EPI)NonAf (>60 ml/min/1.73 sqM) Glucose (74-99) mg/dL Plasma Lactic Acid Kaushal (0.7-2.0) mmol/L Calcium (8.4-10.2) mg/dL Magnesium (1.6-2.3) mg/dL Total Bilirubin (0.2-1.3) mg/dL AST (14-36) U/L ALT (9-52) U/L Alkaline Phosphatase (38-126) U/L Creatine Kinase (30-135) U/L Total Protein (6.3-8.2) g/dL Albumin (3.5-5.0) g/dL Urine Color Yellow Urine Appearance Cloudy H (Clear) Urine pH 5.5 (5.0-8.0) Ur Specific [place] 1.023 (1.001-1.035) Urine Protein Trace H (Negative) Urine Glucose (UA) Negative (Negative) Urine Ketones 1+ H (Negative) Urine Blood Trace H (Negative) Urine Nitrite Negative (Negative) Urine Bilirubin Negative (Negative) Urine Urobilinogen <2.0 (<2.0) mg/dL Ur Leukocyte Esterase Moderate H (Negative) Urine RBC 1 (0-5) /hpf Urine WBC 6 H (0-5) /hpf Ur Squamous Epith Cells 4 (0-4) /hpf Hyaline Casts 3 H (0-2) /lpf Urine Mucus Rare H (None) /hpf Group A Strep Rapid Negative (Negative) Disposition Clinical Impression: Fatigue, Chronic pain Disposition: HOME SELF-CARE Condition: Good Instructions (If sedation given, give patient instructions): Acute Nausea and Vomiting (ED) Prescriptions: hydrOXYzine HCL [Atarax] 10 mg PO TID PRN #12 tab PRN Reason: Itching Cephalexin [Keflex] 500 mg PO Q6HR 5 Days #20 cap Is patient prescribed a controlled substance at d/c from ED?: No Referrals: Juan Diego Issa MD [Primary Care Provider] - 1-2 days Time of Disposition: 18:00
[2018-11-15 16:19] LABS: Basophils % (A) 0 %; Eosinophils # (A) 0.1 k/uL (0-0.7); Eosinophils % (A) 1 %; HCT 48.7 % (34.0-46.0); HGB 16.2 gm/dL (11.4-16.0); Lymphocytes # (A) 1.2 k/uL (1.0-4.8); Lymphocytes % (A) 12 %; MCH 30.8 pg (25.0-35.0); MCHC 33.4 g/dL (31.0-37.0); MCV 92.3 fL (80.0-100.0); Mean Platelet Volume 6.9; Monocytes # (A) 0.4 k/uL (0-1.0); Monocytes % (A) 4 %; Neutrophils # (A) 7.9 k/uL (1.3-7.7); Neutrophils % (A) 82 %; Platelet Count 310 k/uL (150-450); RBC 5.27 m/uL (3.80-5.40); RDW 14.2 % (11.5-15.5); WBC 9.7 k/uL (3.8-10.6)
[2018-11-15 16:31] LABS: ALT 17 U/L (9-52); AST 19 U/L (14-36); Alkaline Phosphatase 114 U/L (38-126); Anion Gap 11 mmol/L; Blood Urea Nitrogen 26 mg/dL (7-17); Calcium 10.5 mg/dL (8.4-10.2); Carbon Dioxide 29 mmol/L (22-30); Chloride 94 mmol/L (98-107); Creatine Kinase 46 U/L (30-135); Glucose 101 mg/dL (74-99); Potassium 4.5 mmol/L (3.5-5.1); Sodium 134 mmol/L (137-145); Total Bilirubin 1.1 mg/dL (0.2-1.3); Total Protein 8.3 g/dL (6.3-8.2)
--- NOTE | 2018-11-15 16:39 | XR ---
EXAMINATION TYPE: XR chest 2V DATE OF EXAM: 11/15/2018 COMPARISON: 04/14/2016 HISTORY: Vomiting TECHNIQUE: Frontal and lateral views of the chest are obtained. FINDINGS: There is no heart failure nor confluent pneumonic infiltrate. Costophrenic angles are john r. Heart size is normal. There is no heart failure. Bony thorax is intact. IMPRESSION: No cardiopulmonary disease. No change.
[2018-11-15 16:43] LABS: Appearance,Urine Cloudy (Clear); Bilirubin,Urine Negative (Negative); Blood,Urine Trace (Negative); Color,Urine Yellow; Glucose,Urine (UA) Negative (Negative); Hyaline Casts,Urine 3 /lpf (0-2); Ketones,Urine 1+ (Negative); Leukocyte Esterase,Urine Moderate (Negative); Mucus,Urine Rare /hpf; Nitrite,Urine Negative (Negative); PH, Urine 5.5 (5.0-8.0); Protein,Urine Trace (Negative); RBC,Urine 1 /hpf (0-5); Specific Gravity,Urine 1.023 (1.001-1.035); Squamous Epithelial Cell,Urine 4 /hpf (0-4); Urobilinogen,Urine <2.0 mg/dL (<2.0); WBC,Urine 6 /hpf (0-5)
[2018-11-15] MEDS ORDERED: hydrOXYzine HCL 25 MG TAB PO STA (17:55)
[2018-11-15] MEDS ORDERED: ONDANSETRON 4 MG/2 ML VIAL IVP STA (18:10)
[2018-11-15] MEDS ORDERED: ONDANSETRON 4 MG ODT STARTER PACK 2 TAB BTL PO STA (18:13)
[2018-11-15 18:26] VITALS: BP 133/69; PULSE 73
== END 2018-11-15 18:38 | disposition home or self-care (01) ==
LOC: EC 14:42
DX: G89.29 Other chronic pain (principal); R53.83 Other fatigue; R53.81 Other malaise; R00.0 Tachycardia, unspecified; D75.1 Secondary polycythemia; R79.89 Other specified abnormal findings of blood chemistry; L25.9 Unspecified contact dermatitis, unspecified cause; R11.10 Vomiting, unspecified; N39.0 Urinary tract infection, site not specified; J39.2 Other diseases of pharynx; R50.9 Fever, unspecified; R61 Generalized hyperhidrosis; J02.9 Acute pharyngitis, unspecified; R09.89 Other specified symptoms and signs involving the circulatory and respiratory systems; I11.0 Hypertensive heart disease with heart failure; I50.9 Heart failure, unspecified; F31.9 Bipolar disorder, unspecified; F41.9 Anxiety disorder, unspecified; Z88.0 Allergy status to penicillin; Z88.2 Allergy status to sulfonamides; Z88.6 Allergy status to analgesic agent; Z79.891 Long term (current) use of opiate analgesic; Z79.899 Other long term (current) drug therapy; Z86.73 Personal history of transient ischemic attack (TIA), and cerebral infarction without residual deficits; Z63.79 Other stressful life events affecting family and household; Z87.01 Personal history of pneumonia (recurrent); Z97.8 Presence of other specified devices
CPT/HCPCS: 99284; 96374; 96375; 36415; 93005; 80053; 82550; 83605; 83735; 85025; 81001; 87086; 87081; 87430; 71046; J2405; J2270; S0119

== ENCOUNTER 2019-01-18 14:01 | Observation (INO) | payer BC ==
[2019-01-18] MEDS ORDERED: SODIUM CHLORIDE 0.9% 1,000 ML IV ONE (14:52)
[2019-01-18] MEDS ORDERED: NALOXONE 0.4 MG/ML 1 ML VIAL IM STA (14:52)
--- NOTE | 2019-01-18 15:14 | ED ---
General Adult HPI - General Chief complaint: Syncope Stated complaint: Dizziness Time Seen by Provider: 01/18/19 14:43 Source: patient, family Mode of arrival: ambulatory Limitations: no limitations - History of Present Illness Initial comments: Dictation was produced using [employer] dictation software. please excuse any grammatical, word or spelling errors. Chief Complaint: 63-year-old female past medical history of chronic pain disease, heart failure, CVA, hypertension and syncope presents with altered mental status. History of Present Illness: Patient is a poor historian at this time. She was brought in by daughters. They were concerned that patient was having multiple syncopal episodes at home. Last known normal was last night. They came to her house this morning and found that she was lying naked on the couch. She told her daughters that she was wearing clothes. She also has been having memory lapses. She's been telling everyone that she is 60 years old when she is actually 63. Patient unable to provide history of present illness at this time. She however says no when asked if she has any pain complaints. Daughters report that patient has never had a feeling tests in the past. According to nu rse she was nonverbal when in triage. She is unable to tell what her birthday is. The ROS documented in this emergency department record has been reviewed and confirmed by me. Those systems with pertinent positive or negative responses have been documented in the HPI. All other systems are other negative and/or noncontributory. PHYSICAL EXAM: General Impression: Alert and oriented x2/4, not in acute distress HEENT: Normocephalic atraumatic, extra-ocular movements intact, pupils equal and reactive to light bilaterally, mucous membranes moist. Cardiovascular: Heart regular rate and rhythm, S1&S2 audible, no murmurs, rubs or gallops Chest: Lungs clear to auscultation bilaterally, no rhonchi, no wheeze, no rales Abdomen: Bowel sounds present, abdomen soft, non-tender, non-distended, no organomegaly Musculoskeletal: Pulses present and equal in all extremities, no peripheral edema Motor: no focal deficits noted Neurological: CN II-XII grossly intact, no focal motor or sensory deficits noted mildly aphasic Skin: Intact with no visualized rashes ED course: 63-year-old female presents with altered mental status. On arrival are within acceptable limits. Patient does not have any focal neurologic deficits at this time. She does appear confused and answers questions appropriately intermittently. She is able to identify some objects but not others. She is having difficulty with these issues however I believe this is from lack of being cooperative. Patient is able ambulatory to the bathroom. She has no focal neurologic deficit. Patient observed in emergency department. Return our the emergency department patient is reevaluated. Patient is no longer confused. She is able to accurately identify several objects. She is able to come in her birthday. Patient reevaluated she did have episodes of bilious vomiting at bedside. Patient also began complaining of right upper quadrant pain. Labs are unremarkable. She did have findings of low TSH. Patient was continued to have more episodes of vomiting. Pending a bladder ultrasound. Chest x-rays negative. CT brain is negative. Discussed patient case with sound physician group Dr. Monte was willing to accept patients care. Pending gallbladder ultrasound. EKG interpretation: Ventricular rate 92, normal sinus rhythm,. Interval 20, QTC 4, QTC 467. No ND prolongation, no QTC prolongation, no ST or T-wave changes noted. Overall, this EKG is unremarkable - Related Data Home Medications Medication Instructions Recorded Confirmed HYDROcodone/APAP 10-325MG [[place] 1 tab PO TID-W/MEALS PRN 02/12/17 01/18/19 10-325] LORazepam [Ativan] 0.5 mg PO BID PRN 03/10/18 01/18/19 Omeprazole 20 mg PO BID 03/10/18 01/18/19 Atorvastatin Calcium [Lipitor] 20 mg PO DAILY 09/02/18 01/18/19 Ergocalciferol (Vitamin D2) 50,000 unit PO STEVENSON 09/02/18 01/18/19 [Drisdol] Morphine Pump 0.1 mg IV CONTINUOUS 01/18/19 01/18/19 Previous Rx's Medication Instructions Recorded hydrOXYzine HCL [Atarax] 10 mg PO TID PRN #12 tab 11/15/18 Allergies Allergy/AdvReac Type Severity Reaction Status Date / Time Sulfa (Sulfonamide Allergy Severe Rash/Hives Verified 01/18/19 14:38 Antibiotics) aspirin Allergy Unknown Verified 01/18/19 14:38 Penicillins Allergy Unknown Verified 01/18/19 14:38 Review of Systems ROS Statement: Those systems with pertinent positive or pertinent negative responses have been documented in the HPI. ROS Other: All systems not noted in ROS Statement are negative. Past Medical History Past Medical History: Heart Failure, CVA/TIA, Hypertension, Syncope Additional Past Medical History / Comment(s): chronic back pain, stroke in 2006, pt has pain pump History of Any Multi-Drug Resistant Organisms: None Reported Past Surgical History: Back Surgery Additional Past Surgical History / Comment(s): laproscopic surgery Past Psychological History: Anxiety, Bipolar, Depression Smoking Status: Current every day smoker Past Alcohol Use History: None Reported Past Drug Use History: None Reported - Past Family History Father Family Medical History: Diabetes Mellitus General Exam Limitations: no limitations Course Vital Signs 01/18/19 01/18/19 14:19 15:36 Temperature 99.0 F Pulse Rate 93 93 Respiratory 18 18 Rate Blood Pressure 153/96 152/90 O2 Sat by Pulse 99 95 Oximetry Medical Decision Making - Lab Data Result diagrams: 01/18/19 15:20 01/18/19 15:20 Lab Results 01/18/19 01/18/19 01/18/19 Range/Units 15:20 15:20 15:20 WBC 12.5 H (3.8-10.6) k/uL RBC 5.01 (3.80-5.40) m/uL Hgb 15.7 (11.4-16.0) gm/dL Hct 48.2 H (34.0-46.0) % MCV 96.2 (80.0-100.0) fL MCH 31.2 (25.0-35.0) pg MCHC 32.5 (31.0-37.0) g/dL RDW 16.4 H (11.5-15.5) % Plt Count 318 (150-450) k/uL Neutrophils % 82 % Lymphocytes % 10 % Monocytes % 5 % Eosinophils % 2 % Basophils % 0 % Neutrophils # 10.2 H (1.3-7.7) k/uL Lymphocytes # 1.2 (1.0-4.8) k/uL Monocytes # 0.7 (0-1.0) k/uL Eosinophils # 0.3 (0-0.7) k/uL Basophils # 0.0 (0-0.2) k/uL Anisocytosis Slight PT 9.9 (9.0-12.0) sec INR 0.9 (<1.2) APTT (22.0-30.0) sec Sodium 141 (137-145) mmol/L Potassium 3.9 (3.5-5.1) mmol/L Chloride 98 (98-107) mmol/L Carbon Dioxide 31 H (22-30) mmol/L Anion Gap 12 mmol/L BUN 16 (7-17) mg/dL Creatinine 0.58 (0.52-1.04) mg/dL Est GFR (CKD-EPI)AfAm >90 (>60 ml/min/1.73 sqM) Est GFR (CKD-EPI)NonAf >90 (>60 ml/min/1.73 sqM) Glucose 116 H (74-99) mg/dL POC Glucose (mg/dL) (75-99) mg/dL POC Glu Package Crimper ID Calcium 10.6 H (8.4-10.2) mg/dL Total Bilirubin 1.3 (0.2-1.3) mg/dL AST 34 (14-36) U/L ALT 14 (9-52) U/L Alkaline Phosphatase 100 (38-126) U/L Troponin I (0.000-0.034) ng/mL Total Protein 8.6 H (6.3-8.2) g/dL Albumin 5.0 (3.5-5.0) g/dL TSH 0.363 L (0.465-4.680) mIU/L Free T3 pg/mL (2.8-5.3) pg/ml 01/18/19 01/18/19 01/18/19 Range/Units 15:20 15:20 15:20 WBC (3.8-10.6) k/uL RBC (3.80-5.40) m/uL Hgb (11.4-16.0) gm/dL Hct (34.0-46.0) % MCV (80.0-100.0) fL MCH (25.0-35.0) pg MCHC (31.0-37.0) g/dL RDW (11.5-15.5) % Plt Count (150-450) k/uL Neutrophils % % Lymphocytes % % Monocytes % % Eosinophils % % Basophils % % Neutrophils # (1.3-7.7) k/uL Lymphocytes # (1.0-4.8) k/uL Monocytes # (0-1.0) k/uL Eosinophils # (0-0.7) k/uL Basophils # (0-0.2) k/uL Anisocytosis PT (9.0-12.0) sec INR (<1.2) APTT 21.1 L (22.0-30.0) sec Sodium (137-145) mmol/L Potassium (3.5-5.1) mmol/L Chloride (98-107) mmol/L Carbon Dioxide (22-30) mmol/L Anion Gap mmol/L BUN (7-17) mg/dL Creatinine (0.52-1.04) mg/dL Est GFR (CKD-EPI)AfAm (>60 ml/min/1.73 sqM) Est GFR (CKD-EPI)NonAf (>60 ml/min/1.73 sqM) Glucose (74-99) mg/dL POC Glucose (mg/dL) (75-99) mg/dL POC Glu Package Crimper ID Calcium (8.4-10.2) mg/dL Total Bilirubin (0.2-1.3) mg/dL AST (14-36) U/L ALT (9-52) U/L Alkaline Phosphatase (38-126) U/L Troponin I 0.024 (0.000-0.034) ng/mL Total Protein (6.3-8.2) g/dL Albumin (3.5-5.0) g/dL TSH (0.465-4.680) mIU/L Free T3 pg/mL 3.4 (2.8-5.3) pg/ml 01/18/19 Range/Units 15:29 WBC (3.8-10.6) k/uL RBC (3.80-5.40) m/uL Hgb (11.4-16.0) gm/dL Hct (34.0-46.0) % MCV (80.0-100.0) fL MCH (25.0-35.0) pg MCHC (31.0-37.0) g/dL RDW (11.5-15.5) % Plt Count (150-450) k/uL Neutrophils % % Lymphocytes % % Monocytes % % Eosinophils % % Basophils % % Neutrophils # (1.3-7.7) k/uL Lymphocytes # (1.0-4.8) k/uL Monocytes # (0-1.0) k/uL Eosinophils # (0-0.7) k/uL Basophils # (0-0.2) k/uL Anisocytosis PT (9.0-12.0) sec INR (<1.2) APTT (22.0-30.0) sec Sodium (137-145) mmol/L Potassium (3.5-5.1) mmol/L Chloride (98-107) mmol/L Carbon Dioxide (22-30) mmol/L Anion Gap mmol/L BUN (7-17) mg/dL Creatinine (0.52-1.04) mg/dL Est GFR (CKD-EPI)AfAm (>60 ml/min/1.73 sqM) Est GFR (CKD-EPI)NonAf (>60 ml/min/1.73 sqM) Glucose (74-99) mg/dL POC Glucose (mg/dL) 120 H (75-99) mg/dL POC Glu Package Crimper ID Joshi, Kymberly Calcium (8.4-10.2) mg/dL Total Bilirubin (0.2-1.3) mg/dL AST (14-36) U/L ALT (9-52) U/L Alkaline Phosphatase (38-126) U/L Troponin I (0.000-0.034) ng/mL Total Protein (6.3-8.2) g/dL Albumin (3.5-5.0) g/dL TSH (0.465-4.680) mIU/L Free T3 pg/mL (2.8-5.3) pg/ml Disposition Clinical Impression: Pre-syncope, Abdominal pain, Vomiting Disposition: ADMITTED IP TO THIS HOSP Condition: Fair Referrals: Juan Diego Issa MD [Primary Care Provider] - 1-2 days Decision Time: 17:29
[2019-01-18 15:30] LABS: Anisocytosis Slight; Basophils % (A) 0 %; Eosinophils # (A) 0.3 k/uL (0-0.7); Eosinophils % (A) 2 %; HCT 48.2 % (34.0-46.0); HGB 15.7 gm/dL (11.4-16.0); Lymphocytes # (A) 1.2 k/uL (1.0-4.8); Lymphocytes % (A) 10 %; MCH 31.2 pg (25.0-35.0); MCHC 32.5 g/dL (31.0-37.0); MCV 96.2 fL (80.0-100.0); Mean Platelet Volume 7.3; Monocytes # (A) 0.7 k/uL (0-1.0); Monocytes % (A) 5 %; Neutrophils # (A) 10.2 k/uL (1.3-7.7); Neutrophils % (A) 82 %; Platelet Count 318 k/uL (150-450); RBC 5.01 m/uL (3.80-5.40); RDW 16.4 % (11.5-15.5); WBC 12.5 k/uL (3.8-10.6)
[2019-01-18] MEDS ORDERED: ONDANSETRON 4 MG/2 ML VIAL IVP STA ×2 (15:32→17:23)
[2019-01-18 15:41] LABS: INR 0.9 (<1.2); Prothrombin Time 9.9 sec (9.0-12.0)
[2019-01-18 15:41] LABS: Glucose,Whole Blood 120 mg/dL (75-99)
[2019-01-18 15:44] LABS: ALT 14 U/L (9-52); AST 34 U/L (14-36); African American GFR (CKD) >90 (>60 ml/min/1.73 sqM); Alkaline Phosphatase 100 U/L (38-126); Anion Gap 12 mmol/L; Blood Urea Nitrogen 16 mg/dL (7-17); Calcium 10.6 mg/dL (8.4-10.2); Carbon Dioxide 31 mmol/L (22-30); Chloride 98 mmol/L (98-107); Glucose 116 mg/dL (74-99); Potassium 3.9 mmol/L (3.5-5.1); Sodium 141 mmol/L (137-145); Total Bilirubin 1.3 mg/dL (0.2-1.3); Total Protein 8.6 g/dL (6.3-8.2)
--- NOTE | 2019-01-18 16:14 | CT ---
EXAMINATION TYPE: CT brain wo con DATE OF EXAM: 01/18/2019 COMPARISON: 03/10/2018 HISTORY: 63-year-old female confusion, altered mental status TECHNIQUE: Examination was done in axial plane without intravenous contrast. Coronal and sagittal r econstructions performed. CT DLP: 1048.4 mGycm Automated exposure control for dose reduction was used. FINDINGS: There is no evidence of acute intracranial hemorrhage, acute ischemic changes, mass, mass-effect, or extra-axial fluid collection. There is no effacement of cerebral sulci or basal subarachnoid cister ns. There is no hydrocephalus. There is no midline shift. Lambert-white matter distinction is preserv ed. Scattered mild mucosal thickening ethmoid air cells. Mastoid air cells well pneumatized. Orbits and g lobes appear intact. Leftward nasal septal deviation. IMPRESSION: No acute intracranial abnormality seen. Scattered mild chronic ethmoid sinus disease.
--- NOTE | 2019-01-18 16:35 | XR ---
EXAMINATION TYPE: XR chest 2V DATE OF EXAM: 01/18/2019 COMPARISON: 11/15/2018 HISTORY: 63-year-old female confusion, altered mental status TECHNIQUE: AP and lateral views FINDINGS: Heart upper limits of normal in size. Aorta and pulmonary vasculature within normal limits. Diffuse i nterstitial prominence and hyperinflation. No yakelin consolidation or pleural effusion seen. IMPRESSION: Interstitial changes and hyperinflation. Correlate for underlying COPD. No definite acute process.
[2019-01-18] MEDS ORDERED: MORPHINE SULFATE 4 MG/ML SYRINGE IVP STA (17:11)
[2019-01-18] MEDS ORDERED: ONDANSETRON 4 MG/2 ML VIAL IVP PRN (17:26)
[2019-01-18] MEDS ORDERED: MORPHINE SULFATE 4 MG/ML SYRINGE IV PRN (17:26)
[2019-01-18] MEDS ORDERED: NALOXONE 0.4 MG/ML 1 ML VIAL IV PRN (17:26)
--- NOTE | 2019-01-18 18:14 | US ---
EXAMINATION TYPE: US gallbladder DATE OF EXAM: 01/18/2019 COMPARISON: A 14/07/2016 CLINICAL HISTORY: 63-year-old female Pain. Abdomen pain and N/V x 1 day TECHNIQUE: Multiple sonographic images of the right upper quadrant are obtained. FINDINGS: EXAM MEASUREMENTS: Liver Length: 16.5 cm Gallbladder Wall: 0.2 cm CBD: 1.1 cm Right Kidney: 9.3 x 4.4 x 4.4 cm Pancreas: Suboptimal visualization of the pancreatic tail secondary to shadowing from bowel gas. Visu alized portions show no gross abnormality. Liver: wnl Gallbladder: wnl Evidence for sonographic Davis's sign: no CBD: dilated Right Kidney: no hydronephrosis or masses seen IMPRESSION: Dilated bile duct at 1.1 cm. The duct was measured at 1.0 cm on 02/12/2017. This may be chronic in thi s patient and can be confirmed with normal alkaline phosphatase and bilirubin levels. Clinically delfino elate.
--- NOTE | 2019-01-18 20:38 | P.HPIM ---
History of Present Illness H&P Date: 01/18/19 Chief Complaint: Confusion syncope nausea and vomiting The patient is a 63-year-old female a past medical history of chronic pain, currently on morphine pump and [place] at home secondary to history of chronic L1 compression lumbar fracture, essential hypertension and bipolar disorder and anxiety that presented to the ER via private vehicle under the guidance of her daughters,Apparently the patient was found at approximately 11 a.m. this morning naked and confused reporting that she had clothes on. The patient was initially disoriented to self circumstance and place And was unable to recall her birthday. Patient has apparently had multiple syncopal episodes at home and has been having issues with her memory. In the ER the patient was noted to have complaints of periumbilical/right sided abdominal pain with nausea and vomiting. The patient denied any subjective fevers chills or night sweats, denies any change in bowel habits moves her bowels daily, denies any diarrhea. The patient denies any recent changes in her medications. In the ER she had a conference and workup CT of the head was negative for any acute intracranial abnormality only scattered mild chronic ethmoid sinus disease, chest x-ray showed interstitial changes and hyperinflation correlate for COPD. Right upper quadrant ultrasound showed a dilated common bile duct at 1.1 cm. admission labs WBC count 12.5, blood sugar 120, calcium 10.6, normal electrolytes, TSH 0.363 free T3 3 0.4. The patient was recommended for admission for dehydration Review of Systems Pertinent positive as per HPI all other review of systems are otherwise negative Past Medical History Past Medical History: Heart Failure, CVA/TIA, Hypertension, Syncope Additional Past Medical History / Comment(s): chronic back pain, stroke in 2005, pt has pain pump History of Any Multi-Drug Resistant Organisms: None Reported Past Surgical History: Back Surgery Additional Past Surgical History / Comment(s): laproscopic surgery Past Psychological History: Anxiety, Bipolar, Depression Smoking Status: Current every day smoker Past Alcohol Use History: None Reported Past Drug Use History: None Reported - Past Family History Father Family Medical History: Diabetes Mellitus Medications and Allergies Home Medications Medication Instructions Recorded Confirmed Type HYDROcodone/APAP 10-325MG [[place] 1 tab PO TID-W/MEALS PRN 02/12/17 01/18/19 History 10-325] LORazepam [Ativan] 0.5 mg PO BID PRN 03/10/18 01/18/19 History Omeprazole 20 mg PO BID 03/10/18 01/18/19 History Atorvastatin Calcium [Lipitor] 20 mg PO DAILY 09/02/18 01/18/19 History Ergocalciferol (Vitamin D2) 50,000 unit PO [place] 09/02/18 01/18/19 History [Drisdol] hydrOXYzine HCL [Atarax] 10 mg PO TID PRN #12 tab 11/15/18 01/18/19 Rx Morphine Pump 0.1 mg IV CONTINUOUS 01/18/19 01/18/19 History Allergies Allergy/AdvReac Type Severity Reaction Status Date / Time Sulfa (Sulfonamide Allergy Severe Rash/Hives Verified 01/18/19 14:38 Antibiotics) aspirin Allergy Unknown Verified 01/18/19 14:38 Penicillins Allergy Unknown Verified 01/18/19 14:38 Physical Exam Vitals: Vital Signs Temp Pulse Resp BP Pulse Ox 01/18/19 15:36 93 18 152/90 95 01/18/19 14:19 99.0 F 93 18 153/96 99 Intake and Output 01/18/19 01/18/19 01/18/19 06:59 14:59 22:59 Other: Weight 79.379 kg Constitutional: No acute distress, conversant, pleasant Eyes: Anicteric sclerae, moist conjunctiva, no lid-lag, PERRLA ENMT: NC/AT,Oropharynx clear, no erythema, exudates Neck:Supple, FROM, no masses, or JVD, No carotid bruits; No thyromegaly Lungs: Clear to auscultation, Clear to percussion, Normal respiratory effort, no accessory muscle use Cardiovascular: Heart regular in rate and rhythm, No murmurs, gallops, or rubs no peripheral edema Abdominal: Soft Nontender, nom distended, no guarding, no rebound or rigidity, Normoactive bowel sounds No hepatomegaly, No splenomegaly, No palpable mass No abdominal wall hernia noted Skin: Normal temperature, tone, texture, turgor, No induration No subcutaneous nodules, No rash, lesions, No ulcers Extremities:No digital cyanosis No clubbing, Pedal pulses intact and sym metrical Radial pulses intact and symmetrical Normal gait and station, No calf tenderness Psychiatric: Alert and oriented to person, place and time, Appropriate affect Intact judgement Neuro: Muscles Strength 5/5 in all 4 extremities, Sensation to light touch grossly present throughout, Cranial nerves II-XII grossly intact. No focal sensory deficits Results CBC & Chem 7: 01/18/19 15:20 01/18/19 15:20 Labs: Abnormal Lab Results - Last 24 Hours (Table) 01/18/19 01/18/19 01/18/19 Range/Units 15:20 15:20 15:20 WBC 12.5 H (3.8-10.6) k/uL Hct 48.2 H (34.0-46.0) % RDW 16.4 H (11.5-15.5) % Neutrophils # 10.2 H (1.3-7.7) k/uL APTT 21.1 L (22.0-30.0) sec Carbon Dioxide 31 H (22-30) mmol/L Glucose 116 H (74-99) mg/dL POC Glucose (mg/dL) (75-99) mg/dL Calcium 10.6 H (8.4-10.2) mg/dL Total Protein 8.6 H (6.3-8.2) g/dL TSH 0.363 L (0.465-4.680) mIU/L 01/18/19 Range/Units 15:29 WBC (3.8-10.6) k/uL Hct (34.0-46.0) % RDW (11.5-15.5) % Neutrophils # (1.3-7.7) k/uL APTT (22.0-30.0) sec Carbon Dioxide (22-30) mmol/L Glucose (74-99) mg/dL POC Glucose (mg/dL) 120 H (75-99) mg/dL Calcium (8.4-10.2) mg/dL Total Protein (6.3-8.2) g/dL TSH (0.465-4.680) mIU/L Assessment and Plan (1) Metabolic encephalopathy Current Visit: Yes Status: Acute Code(s): G93.41 - METABOLIC ENCEPHALOPATHY SNOMED Code(s): 46480369 (2) Pre-syncope Current Visit: Yes Status: Acute Code(s): R55 - SYNCOPE AND COLLAPSE SNOMED Code(s): 283984793 (3) Nausea and vomiting Current Visit: Yes Status: Acute Code(s): R11.2 - NAUSEA WITH VOMITING, UNSP ECIFIED SNOMED Code(s): 69240353 (4) Abdominal pain Current Visit: Yes Status: Acute Code(s): R10.9 - UNSPECIFIED ABDOMINAL PAIN SNOMED Code(s): 15332552 (5) Leukocytosis Current Visit: Yes Status: Acute Code(s): D72.829 - ELEVATED WHITE BLOOD CELL COUNT, UNSPECIFIED SNOMED Code(s): 302995524 (6) Chronic pain Current Visit: Yes Status: Acute Code(s): G89.29 - OTHER CHRONIC PAIN SNOMED Code(s): 92296456 Plan: The patient is placed in observation anticipated less than 2 midnight stay after presenting with confusion and presyncope found to have metabolic encephalopathy as her CT of the head was negative for any acute intracranial pathology, will continue workup for syncope with echocardiogram with Doppler along with carotid Doppler study, vitamin B12 , and EEG (previous EEG showing encephalopathy). We'll also consult neurology for further recommendations and order MRI of the brain. Imaging of the patient's right upper quadrant indicated mildly dilated CBD at 1.1 cm, and GI was consulted from the ER, will order abdominal x-ray continue supportive management with fluids, antiemetics and pain medication. We'll resume her home medications including Seroquel 25 mg daily at bedtime which is not on her med list . We'll continue to follow her clinical course. CODE STATUS: Full code Discussed plan of care with: Patient and her daughters Anticipated discharge : 1-2 days Prophylaxis : SCDs and heparin
--- NOTE | 2019-01-18 20:51 | XR ---
EXAMINATION TYPE: XR KUB DATE OF EXAM: 01/18/2019 CLINICAL DATA: 63-year-old female with nausea, vomiting and abdominal pain, [facility] COMPARISON: 07/12/2016 FINDINGS: Lung bases are clear. Supine imaging limited for assessment of free intraperitoneal air. No dilated small bowel or air-fluid levels. Midabdominal air-filled small bowel loop measures up to 2 .8 cm. Scattered air seen throughout the colon extending distally into the rectum. No suspicious calcifications identified. Generator device projecting over the right midabdomen. IMPRESSION: Nonobstructive bowel gas pattern. No significant stool burden.
[2019-01-18] MEDS: QUEtiapine 25 MG TAB PO SCH (22:29)
[2019-01-18] MEDS: SODIUM CHLORIDE 0.9% 1,000 ML IV SCH (22:30)
[2019-01-18] MEDS: MORPHINE IV SCH (22:31)
[2019-01-19] MEDS: HYDROcodone/APAP 10-325MG 1 EACH TAB PO PRN ×4 (00:39→20:46)
[2019-01-19] MEDS: SODIUM CHLORIDE 0.9% 1,000 ML IV SCH (00:45)
[2019-01-19 01:24] LABS: Appearance,Urine Clear (Clear); Bacteria,Urine Rare /hpf; Bilirubin,Urine Negative (Negative); Blood,Urine Small (Negative); Color,Urine Yellow; Glucose,Urine (UA) Negative (Negative); Granular Casts,Urine 1 /lpf (0); Ketones,Urine Trace (Negative); Leukocyte Esterase,Urine Negative (Negative); Mucus,Urine Rare /hpf; Nitrite,Urine Negative (Negative); PH, Urine 6.5 (5.0-8.0); Protein,Urine Trace (Negative); RBC,Urine 3 /hpf (0-5); Specific Gravity,Urine 1.018 (1.001-1.035); Squamous Epithelial Cell,Urine 2 /hpf (0-4); Urobilinogen,Urine <2.0 mg/dL (<2.0); WBC,Urine 2 /hpf (0-5)
[2019-01-19] MEDS: LORazepam 0.5 MG TAB PO PRN (03:50)
[2019-01-19] MEDS ORDERED: PANTOPRAZOLE 40 MG TABLET PO SCH (07:30)
[2019-01-19 07:34] LABS: Glucose,Whole Blood 97 mg/dL (75-99)
[2019-01-19 07:51] LABS: Cholesterol 217 mg/dL (<200); HDL Cholesterol 49 mg/dL (40-60); LDL Cholesterol,Calculated 145 mg/dL (0-99); Triglycerides 113 mg/dL (<150)
[2019-01-19] MEDS: ATORVASTATIN 20 MG TAB PO SCH (08:13)
--- NOTE | 2019-01-19 08:50 | US ---
EXAMINATION TYPE: US carotid duplex BILAT DATE OF EXAM: 01/19/2019 COMPARISON: NONE CLINICAL HISTORY: Syncope. EXAM MEASUREMENTS: RIGHT: Peak Systolic Velocity (PSV) cm/sec ----- Right CCA: 66.2 ----- Right ICA: 87.9 ----- Right ECA: 49.6 ICA/CCA ratio: 1.3 RIGHT: End Diastole cm/sec ----- Right CCA: 16.5 ----- Right ICA: 23.2 ----- Right ECA: 12.1 LEFT: Peak Systolic Velocity (PSV) cm/sec ----- Left CCA: 84.5 ----- Left ICA: 59.4 ----- Left ECA: 60.1 ICA/CCA ratio: 0.7 LEFT: End Diastole cm/sec ----- Left CCA: 17.1 ----- Left ICA: 15.7 ----- Left ECA: 10.4 VERTEBRALS (direction of flow): Right Vertebral: Antegrade Left Vertebral: Antegrade Rhythm: Normal No significant stenosis seen, no elevated velocities. Mild plaque noted. IMPRESSION: I DO NOT SEE EVIDENCE OF A HEMODYNAMICALLY SIGNIFICANT STENOSIS IN EITHER CAROTID SYSTEM. Criteria for Assigning % of Stenosis / Diameter reduction (Estimation based on the indirect measurements of the internal carotid artery velocities (ICA PSV). 1. Normal (no stenosis)=ICA PSV < 125 cm/s: ratio < 2.0: ICA EDV<40 cm/s. 2. Less than 50% stenosis=ICA PSV < 125 cm/s: ratio < 2.0: ICA EDV<40 cm/s. 3. 50 to 69% stenosis=ICA PSV of 125 to 230 cm/s: ration 2.0 ? 4.0: ICA EDV 40-100 cm/s. 4. Greater than 70% stenosis to near occlusion= ICA PSV > 230 cm/s: ratio > 4.0: ICA EDV > 100 cm/s. 5. Near occlusion= ICA PSV velocities may be low or undetectable: variable ratio and ICA EDV. 6. Total occlusion=unable to detect flow.
[2019-01-19] MEDS ORDERED: ERGOCALCIFEROL 50,000 UNIT CAP PO SCH (09:00)
[2019-01-19 13:33] LABS: African American GFR (CKD) >90 (>60 ml/min/1.73 sqM); Anion Gap 10 mmol/L; Blood Urea Nitrogen 15 mg/dL (7-17); Calcium 9.1 mg/dL (8.4-10.2); Carbon Dioxide 28 mmol/L (22-30); Chloride 99 mmol/L (98-107); Glucose 99 mg/dL (74-99); Potassium 3.3 mmol/L (3.5-5.1); Sodium 137 mmol/L (137-145)
[2019-01-19 13:48] LABS: Anisocytosis Slight; HCT 40.6 % (34.0-46.0); MCH 31.5 pg (25.0-35.0); MCHC 32.1 g/dL (31.0-37.0); MCV 98.1 fL (80.0-100.0); Macrocytosis Slight; Mean Platelet Volume 7.7; Platelet Count 268 k/uL (150-450); RBC 4.13 m/uL (3.80-5.40); WBC 8.3 k/uL (3.8-10.6)
[2019-01-19] MEDS ORDERED: POTASSIUM BICARBONATE/CIT AC 20 MEQ TABLET.EFF PO ONE (14:45)
[2019-01-19] MEDS: hydrOXYzine HCL 10 MG TAB PO PRN (14:48)
[2019-01-19] MEDS ORDERED: NICOTINE POLACRILEX 2 MG GUM BUCCAL PRN (14:55)
[2019-01-19] MEDS: NICOTINE 21MG/24HR PATCH TRANSDERM SCH (15:12)
--- NOTE | 2019-01-19 15:15 | P.PN ---
Subjective Progress Note Date: 01/19/19 (Delayed charting seen at 10:30) Principal diagnosis: Nausea vomiting, altered mentation Patient is 63-year-old female past medical history of chronic pain currently on a morphine pump and [place] at home, hypertension, CHF, and prior stroke who presented to the emergency department via private vehicle under the guidance of her daughter for confusion. In the ER she underwent an extensive evaluation. She is not has some intractable nausea and vomiting. Her white blo od cell count was slightly elevated at 12.5, calcium slightly elevated at 10.6. Laboratory analysis is otherwise unremarkable. Right upper quadrant ultrasound showed a slightly dilated common bile duct at 1.1 which is unchanged from prior. There is concern for possible syncopal events at home as patient falling at home. She was admitted for further monitoring and care. Head CT was negative for any acute intracranial pathology. Initially an extensive evaluation was ordered with Doppler, EEG, MRI, neurology consult, and B12 levels. However cumulative the patient had been at [employer] when all this occurred. Her mentation improved and she is back to baseline on the morning of 01/19. Due to the possibility of syncope she will continue to undergo an echocardiogram. Her diet was advanced. Electrolytes replaced. Patient seen and examined at bedside. She denies any chest pain, shortness of breath, nausea, vomiting, diarrhea, or constipation. She is unable to tell me if her had similar symptoms at home. Objective - Vital Signs Vital signs: Vital Signs Temp 98.4 F 01/19/19 07:00 Pulse 71 01/19/19 07:00 Resp 12 01/19/19 07:00 BP 121/70 01/19/19 07:00 Pulse Ox 92 L 01/19/19 07:00 Intake & Output 01/18/19 01/19/19 01/19/19 18:59 06:59 18:59 Intake Total 990 Output Total 1720 Balance -730 Weight 79.379 kg 77 kg Intake: Intake, IV Titration 740 Amount Sodium Chloride 0.9% 1, 740 000 ml @ 80 mls/hr IV . [id number] [facility] Rx#:[id number] Oral 250 Output: Urine 1720 Other: Voiding Method Toilet # Voids 1 2 - Exam General: non toxic, no distress, appears at stated age Derm: warm, dry Head: atraumatic, normocephalic, symmetric Eyes: EOMI, no lid lag, anicteric sclera Mouth: no lip lesion, mucus membranes moist Cardiovascular: S1S2 reg, no murmur, positive posterior tibial pulse bilateral, Lungs: CTA bilateral, no rhonchi, no rales , no accessory muscle use Abdominal: soft, nontender to palpation, no guarding, no appreciable organomegaly Ext: no gross muscle atrophy, no edema, no contractures Neuro: CN II-XI grossly intact, no focal neuro deficits Psych: Alert, oriented, appropriate affect - Labs CBC & Chem 7: 01/19/19 10:02 01/19/19 10:02 Labs: Abnormal Lab Results - Last 24 Hours (Table) 01/18/19 01/18/19 01/18/19 Range/Units 15:20 15:20 15:20 WBC 12.5 H (3.8-10.6) k/uL Hct 48.2 H (34.0-46.0) % RDW 16.4 H (11.5-15.5) % Neutrophils # 10.2 H (1.3-7.7) k/uL APTT 21.1 L (22.0-30.0) sec Potassium (3.5-5.1) mmol/L Carbon Dioxide 31 H (22-30) mmol/L Glucose 116 H (74-99) mg/dL POC Glucose (mg/dL) (75-99) mg/dL Calcium 10.6 H (8.4-10.2) mg/dL Total Protein 8.6 H (6.3-8.2) g/dL Cholesterol (<200) mg/dL LDL Cholesterol, Calc (0-99) mg/dL TSH 0.363 L (0.465-4.680) mIU/L Urine Protein (Negative) Urine Ketones (Negative) Urine Blood (Negative) Urine Bacteria (None) /hpf Urine Mucus (None) /hpf 01/18/19 01/19/19 01/19/19 Range/Units 15:29 01:00 07:09 WBC (3.8-10.6) k/uL Hct (34.0-46.0) % RDW (11.5-15.5) % Neutrophils # (1.3-7.7) k/uL APTT (22.0-30.0) sec Potassium (3.5-5.1) mmol/L Carbon Dioxide (22-30) mmol/L Glucose (74-99) mg/dL POC Glucose (mg/dL) 120 H (75-99) mg/dL Calcium (8.4-10.2) mg/dL Total Protein (6.3-8.2) g/dL Cholesterol 217 H (<200) mg/dL LDL Cholesterol, Calc 145 H (0-99) mg/dL TSH (0.465-4.680) mIU/L Urine Protein Trace H (Negative) Urine Ketones Trace H (Negative) Urine Blood Small H (Negative) Urine Bacteria Rare H (None) /hpf Urine Mucus Rare H (None) /hpf 01/19/19 01/19/19 Range/Units 10:02 10:02 WBC (3.8-10.6) k/uL Hct (34.0-46.0) % RDW 16.0 H (11.5-15.5) % Neutrophils # (1.3-7.7) k/uL APTT (22.0-30.0) sec Potassium 3.3 L (3.5-5.1) mmol/L Carbon Dioxide (22-30) mmol/L Glucose (74-99) mg/dL POC Glucose (mg/dL) (75-99) mg/dL Calcium (8.4-10.2) mg/dL Total Protein (6.3-8.2) g/dL Cholesterol (<200) mg/dL LDL Cholesterol, Calc (0-99) mg/dL TSH (0.465-4.680) mIU/L Urine Protein (Negative) Urine Ketones (Negative) Urine Blood (Negative) Urine Bacteria (None) /hpf Urine Mucus (None) /hpf Microbiology - Last 24 Hours (Table) 01/18/19 01:00 Urine Culture - Preliminary Urine,Clean Catch Assessment and Plan Assessment: Acute encephalopathy -Clinical index of suspicion is high for possible alcohol intoxication combined with [place] tablets, or mis appropriation of [place] tablets -Resolved without any definitive care -Continue to monitor -MRI brain, EEG, and neurology consult as needed Possible syncopal event -Continue with telemetry, echocardiogram in a.m., check orthostatic vitals Chronic pain -Continue with [place], morphine pain pump -Outpatient follow-up Tobacco abuse -Cessation -Nicotine replacement Hypokalemia -Replace -No need to recheck that should correct itself with eating Leukocytosis, resolved Chronic: Hypertension Dyslipidemia Congestive heart failure Anticipate discharge home in a.m. if echocardiogram negative DVT prophylaxis: Early ambulation Discussed with: Patient, nursing Anticipated discharge: in AM Anticipated discharge place: home A total of 25 minutes was spent on the care of this complex patient more than 50% of the time was spent in counseling and care coordination.
--- NOTE | 2019-01-19 20:14 | P.CONS ---
History of Present Illness - Reason for Consult Consult date: 01/19/19 Abdominal pain Requesting physician: Marvel Onofre - Chief Complaint Abdominal pain, syncope - History of Present Illness 63-year-old female with medical history significant for chronic pain on morphine pump, hypertension, bipolar disorder and anxiety who presents to the hospital due to syncopal episode. She reports having abdominal pain in the right side of the abdomen which was severe. She describes the pain as sharp and burning in nature and occurring prior to the syncopal episode. She reports prior episodes of similar pain and evaluated approximately one year ago with EGD and colonoscopy later on Hospital which she believes was normal. She denies any food or triggers prior to the pain. No NSAID use. She does report being on omeprazole daily. She reports bowel movement prior to presentation being normal in color nonbloody and brown. She reports that still hurts but is overall better. The patient's CBC was normal on presentation with a total bilirubin 1.3, alkaline phosphatase 100, AST 34 and ALTs 14. She did have an ultrasound of the gallbladder which was negative for any gallstones or gallbladder thickening with the common bile duct being reported as dilated at 1.1 cm however stable when compared to prior CBD measurement of 1 cm previously. Review of Systems REVIEW OF SYSTEMS: CONSTITUTIONAL: Denies any fevers, chills, weight change or fatigue. CARDIOVASCULAR: Denies any chest pain, palpitations high or low blood pressures RESPIRATORY: Denies any shortness of breath, hemoptysis or cough. GENITOURINARY: No dysuria or hematuria. MUSCULOSKELETAL: No weakness reported. SKIN: Denies any new rashes or lesions, jaundice or pallor. PSYCHIATRIC: Denies any depression or anxiety. NEUROLOGY: Denies headache, denies any new focal deficits. EARS/NOSE/THROAT: No recent hearing change, congestion, nasal discharge or sore throat. EYES: No pain in eyes, discharge or change in vision. GASTROINTESTINAL: As per HPI. Past Medical History Past Medical History: Heart Failure, CVA/TIA, Hypertension, Syncope Additional Past Medical History / Comment(s): chronic back pain, stroke in 2006, pt has pain pump History of Any Multi-Drug Resistant Organisms: None Reported Past Surgical History: Back Surgery Additional Past Surgical History / Comment(s): laproscopic surgery Past Anesthesia/Blood Transfusion Reactions: No Reported Reaction Past Psychological History: Anxiety, Bipolar, Depression Smoking Status: Current every day smoker Past Alcohol Use History: None Reported Past Drug Use History: None Reported - Past Family History Father Family Medical History: Diabetes Mellitus Medications and Allergies Home Medications Medication Instructions Recorded Confirmed Type HYDROcodone/APAP 10-325MG [[place] 1 tab PO TID-W/MEALS PRN 02/12/17 01/18/19 History 10-325] LORazepam [Ativan] 0.5 mg PO BID PRN 03/10/18 01/18/19 History Omeprazole 20 mg PO BID 03/10/18 01/18/19 History Atorvastatin Calcium [Lipitor] 20 mg PO DAILY 09/02/18 01/18/19 History Ergocalciferol (Vitamin D2) 50,000 unit PO STEVENSON 09/02/18 01/18/19 History [Drisdol] hydrOXYzine HCL [Atarax] 10 mg PO TID PRN #12 tab 11/15/18 01/18/19 Rx Morphine Pump 0.1 mg IV CONTINUOUS 01/18/19 01/18/19 History Allergies Allergy/AdvReac Type Severity Reaction Status Date / Time Sulfa (Sulfonamide Allergy Severe Rash/Hives Verified 01/18/19 14:38 Antibiotics) aspirin Allergy Unknown Verified 01/18/19 14:38 Penicillins Allergy Unknown Verified 01/18/19 14:38 Physical Exam Vitals: Vital Signs Temp Pulse Resp BP Pulse Ox 01/19/19 17:37 98 F 63 12 165/91 97 01/19/19 17:29 97 01/19/19 07:00 98.4 F 71 12 121/70 92 L 01/19/19 02:55 97.8 F 82 17 144/87 95 Intake and Output 01/19/19 01/19/19 01/19/19 06:59 14:59 22:59 Intake Total 580 Output Total 1300 Balance -720 Intake: Intake, IV Titration 580 Amount Sodium Chloride 0.9% 1, 580 000 ml @ 80 mls/hr IV . [id number] [facility] Rx#:[id number] Output: Urine 1300 Other: # Voids 1 2 Weight 77 kg On physical examination, patient appears comfortable in no apparent distress. HEAD: Normocephalic, atraumatic. EYES: No scleral icterus. No conjunctival injection. MOUTH: No lesions, tongue midline. NECK: Trachea midline, no gross abnormalities. CHEST: Clear to auscultation with no wheezing or rhonchi appreciated. HEART: Regular rate and rhythm. ABDOMEN: Soft, obese. Bowel sounds are positive. No organomegaly. No guarding or rigidity. EXTREMITIES: No pedal edema. SKIN: No rashes, no jaundice. NEUROLOGIC: Alert and oriented x3. No focal deficits. Results CBC & Chem 7: 01/19/19 10:02 01/19/19 10:02 Labs: Abnormal Lab Results - Last 24 Hours (Table) 01/19/19 01/19/19 01/19/19 Range/Units 01:00 07:09 10:02 RDW 16.0 H (11.5-15.5) % Potassium (3.5-5.1) mmol/L Cholesterol 217 H (<200) mg/dL LDL Cholesterol, Calc 145 H (0-99) mg/dL Urine Protein Trace H (Negative) Urine Ketones Trace H (Negative) Urine Blood Small H (Negative) Urine Bacteria Rare H (None) /hpf Urine Mucus Rare H (None) /hpf 01/19/19 Range/Units 10:02 RDW (11.5-15.5) % Potassium 3.3 L (3.5-5.1) mmol/L Cholesterol (<200) mg/dL LDL Cholesterol, Calc (0-99) mg/dL Urine Protein (Negative) Urine Ketones (Negative) Urine Blood (Negative) Urine Bacteria (None) /hpf Urine Mucus (None) /hpf Microbiology - Last 24 Hours (Table) 01/18/19 01:00 Urine Culture - Preliminary Urine,Clean Catch US - abdomen: report reviewed (Abdominal ultrasound with no findings of gallbladder wall thickening or cholelithiasis and CBD measured at 1.1 cm) Assessment and Plan (1) Abdominal pain Narrative/Plan: 63-year-old with multiple medical comorbidities presenting with abdominal pain in the epigastric region of her abdomen and right upper quadrant. Unknown etiology however liver enzymes were normal with a total bilirubin 1.3, alkaline phosphatase 100, AST 34 and ALTs 14. She is on home PPI therapy with omeprazole 20 mg twice a day. Ultrasound of the abdomen did report a dilated common bile duct at 1.1 cm however on review of prior studies it was 1 cm. Unclear etiology of the pain, may be related to functional bowel disorder, uncontrolled reflux with choledocholithiasis less likely in the setting of no stones seen on ultrasound and normal liver enzymes. Current Visit: Yes Status: Acute Code(s): R10.9 - UNSPECIFIED ABDOMINAL PAIN SNOMED Code(s): 82409440 (2) GERD (gastroesophageal reflux disease) Current Visit: Yes Status: Acute Code(s): K21.9 - GASTRO-ESOPHAGEAL REFLUX DISEASE WITHOUT ESOPHAGITIS SNOMED Code(s): 404609493 Plan: Supportive care Okay for diet Will increase pantoprazole to twice daily We'll add Pepcid 20 mg daily at bedtime If concern for choledocholithiasis can order MRCP for further evaluation Continue to monitor CBC, CMP Can consider trial of antispasmodic therapy if pain persists Thank you for allowing us to participate in the care of the patient we will continue to follow
[2019-01-19] MEDS: MORPHINE IV SCH (20:41)
[2019-01-19] MEDS: QUEtiapine 25 MG TAB PO SCH (20:47)
[2019-01-19] MEDS ORDERED: FAMOTIDINE 20 MG TAB PO SCH (21:00)
[2019-01-20] MEDS: LORazepam 0.5 MG TAB PO PRN ×2 (00:50→10:34)
[2019-01-20] MEDS: hydrOXYzine HCL 10 MG TAB PO PRN (04:06)
[2019-01-20] MEDS ORDERED: PANTOPRAZOLE 40 MG TABLET PO SCH (07:30)
[2019-01-20 07:31] VITALS: BP 109/72; PULSE 70; RESP 18; TEMP 98.3
[2019-01-20] MEDS: NICOTINE 21MG/24HR PATCH TRANSDERM SCH (08:34)
[2019-01-20] MEDS: ATORVASTATIN 20 MG TAB PO SCH (08:34)
[2019-01-20] MEDS: HYDROcodone/APAP 10-325MG 1 EACH TAB PO PRN (08:34)
--- NOTE | 2019-01-20 10:29 | P.CNNES ---
History of Present Illness Consult date: 01/20/19 Requesting physician: Marvel Onofre Reason for Consult: Encephalopathy Chief complaint: AMS History of Present Illness: This is a 63 RH female with a history of chronic pain on a morphine pump, hype rtension, bipolar affective disorder with anxiety who presented to the hospital due to a syncopal episode. Patient was brought in to the hospital by her daughters after she was found at around 11 AM on the morning of admission, naked and confused even though patient thought that she was wearing clothes. The patient was noted to be initially disoriented to herself, place and circumstance and also unable to recall her birthday. Patient reportedly had multiple syncopal episodes at home and also having issues with her memory. Patient reported that she had severe abdominal pain on the right side abdomen. She had similar episodes in the past and was evaluated by GI with upper endoscopy and co lonoscopy. GI has evaluated the patient. Her neurological symptoms have improved since admission. Note that patient had previous EEG done showed encephalopathy. Primary team mentioned in their admission note obtaining EEG along with MRI Brain, vitamin B12, carotid duplex and echocardiogram, though upon further history taking, it was discovered that all her symptoms occurred while she was at a [employer] with high index of suspicion for alcohol intoxication with opiates on board, even though patient this morning vehemently denies history of alcohol consumption and states that she does not imbibe because her sister is an alcoholic. Her mentation did improve, so primary team scaled back her work-up with TTE at this time. Her metabolic derangements were corrected as well. Her main concern this morning is whether she can have someone local adjust her morphine pump. Review of Systems 14-point ROS performed and as per HPI. Neurologically, patient denies decreased level or loss of consciousness, seizure, changes in vision, diplopia, amaurosis, changes in hearing, facial droop, ptosis, vertigo, hearing loss, tinnitus, dysarthria, dysphagia, aphasia, other focal numbness/weakness not mentioned above, tremors, bowel/bladder incontinence or ataxia. Past Medical History Past Medical History: Heart Failure, CVA/TIA, Hypertension, Syncope Additional Past Medical History / Comment(s): chronic back pain, stroke in 2006, pt has pain pump History of Any Multi-Drug Resistant Organisms: None Reported Past Surgical History: Back Surgery Additional Past Surgical History / Comment(s): laproscopic surgery Past Anesthesia/Blood Transfusion Reactions: No Reported Reaction Past Psychological History: Anxiety, Bipolar, Depression Smoking Status: Current every day smoker Past Alcohol Use History: None Reported Past Drug Use History: None Reported - Past Family History Father Family Medical History: Diabetes Mellitus Medications and Allergies Home Medications Medication Instructions Recorded Confirmed Type HYDROcodone/APAP 10-325MG [[place] 1 tab PO TID-W/MEALS PRN 02/12/17 01/18/19 History 10-325] LORazepam [Ativan] 0.5 mg PO BID PRN 03/10/18 01/18/19 History Atorvastatin Calcium [Lipitor] 20 mg PO DAILY 09/02/18 01/18/19 History Ergocalciferol (Vitamin D2) 50,000 unit PO STEVEN[place] 09/02/18 01/18/19 History [Drisdol] hydrOXYzine HCL [Atarax] 10 mg PO TID PRN #12 tab 11/15/18 01/18/19 Rx Morphine Pump 0.1 mg IV CONTINUOUS 01/18/19 01/18/19 History Nicotine 21Mg/24Hr Patch [Habitrol] 1 patch TRANSDERM DAILY #14 patch 01/20/19 Rx Pantoprazole [Protonix] 40 mg PO AC-BID #60 tablet. 01/20/19 Rx Allergies Allergy/AdvReac Type Severity Reaction Status Date / Time Sulfa (Sulfonamide Allergy Severe Rash/Hives Verified 01/18/19 14:38 Antibiotics) aspirin Allergy Unknown Verified 01/18/19 14:38 Penicillins Allergy Unknown Verified 01/18/19 14:38 Physical Examination - Vital Signs Vital Signs: Vital Signs Temp Pulse Resp BP Pulse Ox 01/20/19 07:08 98.3 F 70 18 109/72 95 01/20/19 02:30 98.2 F 85 16 110/52 93 L 01/19/19 19:35 98.3 F 69 17 149/81 96 01/19/19 17:37 98 F 63 12 165/91 97 01/19/19 17:29 97 Intake and Output 01/19/19 01/20/19 01/20/19 22:59 06:59 14:59 Intake Total 1000 500 0 Balance 1000 500 0 Intake: Oral 1000 500 0 Other: Voiding Method Toilet # Voids 2 3 Weight 77.4 kg Gen NAD Pleasant and cooperative HEENT NCAT Sclera without icterus O/P clear Neck Supple No carotid bruit Cor RRR no m/r/g Lungs CTAB Abd Soft NTND +BS Ext Warm to touch No edema Neuro MS A+Ox4 Normal fluency Able to follow all commands CN PERRL VFF no APD EOMI no nystagmus or SADIE No facial asymmetry [place]'s symmetric Hearing intact to normal voice bilaterally Speech not dysarthric Equal elevation of palate Tongue midline Sym shrug and SCM bilaterally Motor Normal bulk/tone No pronator or tremors Strength 5/5 sym throughout Sens Intact to LT x4 No neglect or extinction Coord No dysmetria on FTN bilaterally DTRs 2+/4 sym throughout Toes downgoing bilaterally No clonus at achilles Gait Deferred Results - Laboratory Findings CBC and BMP: 01/19/19 10:02 01/19/19 10:02 Abnormal Lab Findings: Abnormal Labs 01/18/19 01/18/19 01/18/19 15:20 15:20 15:20 WBC 12.5 H Hct 48.2 H RDW 16.4 H Neutrophils # 10.2 H APTT 21.1 L Potassium Carbon Dioxide 31 H Glucose 116 H POC Glucose (mg/dL) Calcium 10.6 H Total Protein 8.6 H Cholesterol LDL Cholesterol, Calc TSH 0.363 L Urine Protein Urine Ketones Urine Blood Urine Bacteria Urine Mucus 01/18/19 01/19/19 01/19/19 15:29 01:00 07:09 WBC Hct RDW Neutrophils # APTT Potassium Carbon Dioxide Glucose POC Glucose (mg/dL) 120 H Calcium Total Protein Cholesterol 217 H LDL Cholesterol, Calc 145 H TSH Urine Protein Trace H Urine Ketones Trace H Urine Blood Small H Urine Bacteria Rare H Urine Mucus Rare H 01/19/19 01/19/19 10:02 10:02 WBC Hct RDW 16.0 H Neutrophils # APTT Potassium 3.3 L Carbon Dioxide Glucose POC Glucose (mg/dL) Calcium Total Protein Cholesterol LDL Cholesterol, Calc TSH Urine Protein Urine Ketones Urine Blood Urine Bacteria Urine Mucus TSH 0.363 Free T3 3.4 B12 254 - Diagnostic Findings Additional findings: CT Head wo cont 01/20/19. No ICH. Nil acute. Carotid duplex 01/20/19. Normal. I have reviewed neuroimages myself. Assessment and Plan Assessment: AMS, likely due to ATE, resolved Borderline low B12 Syncope Plan: -Send MMA and homocysteine to make sure she does not meet criteria for B12 deficiency -Supportive care -Non-focal exam currently. Low index of suspicion for acute supratentorial structural explanation such as CVA or epileptic seizure. CTH reviewed. Will hold on further neuroimaging and EEG at this time -Medical work-up for syncope/TTE/orthostatics -Thiamine 100mg po qd x3 -CIWA -Supportive care/correct metabolic derangements -GI consult appreciated -DVT prophylaxis -I do not know anyone local who adjusts morphine pumps. Defer to primary team for local resources -d/w patient in detail. All questions answered. -No further inpatient neuro recs at this time. Will revisit prn. Please call with new ?. Thank you for this consultation. Time with Patient: Greater than 30 (Time spent in direct patient care, greater than 50% of which was spent in [id number] counseling and coordination of care: 70 minutes)
[2019-01-20] MEDS ORDERED: THIAMINE 100 MG TAB PO SCH (10:30)
--- NOTE | 2019-01-20 15:00 | PN ---
PROGRESS NOTE DATE OF SERVICE: 01/20/2019 REQUESTING PHYSICIAN: Dr. Kelly and Dr. Chaim Issa. BRIEF HISTORY: Patient is a 63-year-old pleasant white female admitted to hospital with abdominal pain associated with nausea, vomiting, and some constipation for the last 2-3 days duration. She was seen by Dr. Allen in consultation yesterday. She was complaining of epigastric burning pain and also burning pain in the lower abdominal area. This morning she is feeling better. She was started on Protonix 40 mg twice a day as well as she had a bowel movement this morning and feeling much better. She is able to tolerate diet with no complaints. PHYSICAL EXAMINATION: Appears comfortable, in no apparent distress. Vital signs are stable, blood pressure 132/60, pulse 84 per minute and afebrile. HEENT: Examination unremarkable. Conjunctivae normal, oral cavity no lesions, the sclerae nonicteric. Oral cavity, no lesions the auscultation. HEART: Regular rate and rhythm. ABDOMEN: Soft. Bowel sounds are positive. No organomegaly extremities no pedal edema. NEUROLOGIC: Alert and oriented x3. No focal deficits. LABS: CBC with differential count and CMP is within normal limits. IMPRESSION: 1. Gastroesophageal reflux disease, on Protonix 40 mg twice daily as well as Pepcid at bedtime, doing much better on a regular diet tolerating well. 2. Nausea, vomiting, and abdominal pain have resolved. The patient states that she did have an EGD and colonoscopy by Dr. Allen last year which were unremarkable. Possibly some of her symptoms are functional in etiology. Continue with symptomatic and supportive care. RECOMMENDATIONS: Advance diet as tolerated. Continue with current management. Patient to be discharged home today with outpatient followup with Dr. Allen in 2 weeks. MMODL / IJN: [id number] /
--- NOTE | 2019-01-21 17:49 | P.DS ---
Providers Date of admission: 01/18/19 17:26 Expected date of discharge: 01/20/19 Attending physician: Miguel Kelly Consults: 01/18/19 17:24 Consult Physician Routine Consulting Provider: Harlan Allen Consult Reason/Comments: abdominal pain Do you want consulting provider notified?: Yes 01/18/19 20:38 Consult Physician Routine Consulting Provider: Viraj Wang Consult Reason/Comments: encephalopathy Do you want consulting provider notified?: Yes Primary care physician: Juan Diego Issa Hospital Course: Hospital course: Patient is 63-year-old female past medical history of chronic pain currently on a morphine pump and [place] at home, hypertension, CHF, and prior stroke who presented to the emergency department via private vehicle under the guidance of her daughter for confusion. In the ER she underwent an extensive evaluation. She is not has some intractable nausea and vomiting. Her white blood cell count was slightly elevated at 12.5, calcium slightly elevated at 10.6. Laboratory analysis is otherwise unremarkable. Right upper quadrant ultrasound showed a slightly dilated common bile duct at 1.1 which is unchanged from prior. There is concern for possible syncopal events at home as patient falling at home. She was admitted for further monitoring and care. Head CT was negative for any acute intracranial pathology. Initially an extensive evaluation was ordered with Doppler, EEG, MRI, neurology consult, and B12 levels. However cumulative the patient had been at [facility] when all this occurred. Her mentation improved and she is back to baseline on the morning of 01/19. Due to the possibility of syncope she will continue to undergo an echocardiogram. Patient specifically told me should she does not drink any alcohol that was not a consideration in the differential diagnosis. Patient's at heartburn and gastric discomfort. [place] much better after taking Protonix. But I will discharge patient tolerated diet and feeling much better. Keep to go home. Computed tomography scan of the brain was unremarkable EKG unremarkable Doppler ultrasound of the carotids unremarkable Consultations: Dr. Shrestha from GI Dr. Wang from neurology On examination: Lungs-fair entry Cardio vascular for sickle cell normal Abdomen soft nontender Investigations: LDL 145 B12 normal homocysteine elevated Discharge diagnoses: -Possible metabolic encephalopathy from [place] -Chronic pain disorder for which patient is on pain medications including morphine pain pump -Chronic nicotine use -Hypokalemia Essential hypertension Hyperlipidemia -Possibly Acute and chronic GERD -Patient specifically mentioned that she does not drink any alcohol Disposition: Home Patient Condition at Discharge: Fair Plan - Discharge Summary Discharge Rx Participant: No New Discharge Prescriptions: New Nicotine 21Mg/24Hr Patch [Habitrol] 1 patch TRANSDERM DAILY #14 patch Pantoprazole [Protonix] 40 mg PO AC-BID #[address] Maxwell HYDROcodone/APAP 10-325MG [[place] 10-325] 1 tab PO TID-W/MEALS PRN PRN Reason: Pain LORazepam [Ativan] 0.5 mg PO BID PRN PRN Reason: Anxiety Ergocalciferol (Vitamin D2) [Drisdol] 50,000 unit PO STEVENSON Atorvastatin Calcium [Lipitor] 20 mg PO DAILY hydrOXYzine HCL [Atarax] 10 mg PO TID PRN #12 tab PRN Reason: Itching Morphine Pump 0.1 mg IV CONTINUOUS Discontinued Omeprazole 20 mg PO BID Discharge Medication List HYDROcodone/APAP 10-325MG [[place] 10-325] 1 tab PO TID-W/MEALS PRN 02/12/17 [History] LORazepam [Ativan] 0.5 mg PO BID PRN 03/10/18 [History] Atorvastatin Calcium [Lipitor] 20 mg PO DAILY 09/02/18 [History] Ergocalciferol (Vitamin D2) [Drisdol] 50,000 unit PO STEVENSON 09/02/18 [History] hydrOXYzine HCL [Atarax] 10 mg PO TID PRN #12 tab 11/15/18 [Rx] Morphine Pump 0.1 mg IV CONTINUOUS 01/18/19 [History] Nicotine 21Mg/24Hr Patch [Habitrol] 1 patch TRANSDERM DAILY #14 patch 01/20/19 [Rx] Pantoprazole [Protonix] 40 mg PO AC-BID #60 tablet. 01/20/19 [Rx] Follow up Appointment(s)/Referral(s): Juan Diego Issa MD [Primary Care Provider] - 01/23/19 1:30 pm Harlan Allen MD [STAFF PHYSICIAN] - 3 Weeks (please call office for follow-up. We were unable to contact the office) Patient Instructions/Handouts: Acute Abdominal Pain (DC) Discharge Disposition: HOME SELF-CARE
== END 2019-01-20 14:54 | disposition home or self-care (01) ==
LOC: EC 14:01 → 4SSUR 17:26
PROVIDERS: ADMIT Hospitalist; ATTEND Hospitalist
DX: G89.4 Chronic pain syndrome (principal); Z79.891 Long term (current) use of opiate analgesic; E87.6 Hypokalemia; I11.0 Hypertensive heart disease with heart failure; I50.9 Heart failure, unspecified; E78.5 Hyperlipidemia, unspecified; Z86.73 Personal history of transient ischemic attack (TIA), and cerebral infarction without residual deficits; E86.0 Dehydration; R41.82 Altered mental status, unspecified; R55 Syncope and collapse; D72.829 Elevated white blood cell count, unspecified; K21.9 Gastro-esophageal reflux disease without esophagitis; K83.8 Other specified diseases of biliary tract; K59.00 Constipation, unspecified; M54.9 Dorsalgia, unspecified; F41.9 Anxiety disorder, unspecified; F17.200 Nicotine dependence, unspecified, uncomplicated; M48.56XA Collapsed vertebra, not elsewhere classified, lumbar region, initial encounter for fracture; Z79.899 Other long term (current) drug therapy; Z88.0 Allergy status to penicillin; Z88.6 Allergy status to analgesic agent; Z88.2 Allergy status to sulfonamides; Z91.81 History of falling; Z96.89 Presence of other specified functional implants; Z83.3 Family history of diabetes mellitus; Z81.1 Family history of alcohol abuse and dependence
CPT/HCPCS: 96361 ×2; 96376; 96374; 96375; 99285; 36415; 83921; 84481; 80061; 80053; 80048; 82607; 84443; 84484; 85025; 85027; 85610; 85730; 81001; 83090; 84480; 87086; 71046; 74018; 93880; 76705; 70450; G0378 ×3; S4990 ×2; J2270; J2405

== ENCOUNTER 2019-05-29 10:36 | Day surgery (SDC) | payer BC ==
[2019-05-27 09:58] VITALS: BMI 28.4
[~2019-05-29 10:36] MED LIST: LACTATED RINGERS 1,000 ML IV SCH
[2019-05-29 11:14] VITALS: TEMP 97.8
[2019-05-29] MEDS ORDERED: LIDOCAINE 1% 20 ML VIAL (10MG/ML) FOR IV START INTRADERMA ONE (11:20)
[2019-05-29] MEDS ORDERED: MIDAZOLAM 2 MG/2 ML VIAL ONE (11:56)
[2019-05-29] MEDS ORDERED: LIDOCAINE 1% INJ 10MG/ML (20 ML MDV) ONE (11:56)
[2019-05-29] MEDS ORDERED: fentaNYL (PF) 50 MCG/ML 2 ML AMP ONE (11:56)
[2019-05-29] MEDS ORDERED: PROPOFOL 10 MG/ML 20 ML VIAL IV ONE (11:56)
[2019-05-29] MEDS ORDERED: PHENYLEPHRINE-0.9% NACL SYG 1 MG/10 ML SYRINGE ONE (11:56)
--- NOTE | 2019-05-29 12:50 | P.PCN ---
Date of Procedure: 05/29/19 Description of Procedure: Brief history: Patient is a pleasant scheduled for an elective upper endoscopy as well as colonoscopy as a part of evaluation of GERD and IBS. Last colonoscopy performed in 02/21/2017 with findings of diverticulosis and internal hemorrhoids. Patient also reports recent alteration in bowel function. Procedure performed: Esophagogastroduodenoscopy with biopsy Colonoscopy with biopsy, poor prep Estimated blood loss: Minimal. Preoperative diagnosis: GERD, irritable bowel syndrome, altered bowel function Anesthesia: MAC Procedure: After informed consent was obtained from the patient was brought into the endoscopy unit and IV sedation was administered by anesthesia under continuous monitoring. Initially upper endoscopy was done. The Olympus GF 190 video endoscope was inserted into the mouth and esophagus intubated without any difficulty and was gradually advanced into the stomach and duodenum and carefully examined. The bulb and second part of the duodenum appeared normal with biopsies taken. The scope was then withdrawn into the stomach adequately insufflated with air and upon careful examination the antrum and body, cardia and fundus appeared normal, mild scattered erythema in the antrum and body suggestive of mild gastritis with biopsies of the antrum and body taken. The scope was then withdrawn into the esophagus. The GE junction was located at 38 cm to the incisors, with biopsies taken. It appeared regular with no erythema erosions or ulcerations. Rest of the esophagus appeared normal. Patient tolerated the procedure well. At this time the patient continued to remain sedation. Initial digital rectal examination was normal. Olympus CF 190 video colonoscope was then inserted into the rectum and gradually advanced to the cecum without any difficulty. Careful examination was performed as the scope was gradually being withdrawn. The prep was poor with a large amount of solid and liquid stool noted throughout the colon. The cecum, ascending colon, transverse colon, descending colon, sigmoid colon and rectum appeared normal, however visualization of the mucosa was severely limited by the patient's poor prep. The cecum was able to be intubated and random biopsies were taken of the right and left colon due to altered bowel function. A few small diverticula noted in the sigmoid colon. Retroflexion was performed in the rectum and no lesions were noted. Patient tolerated the procedure well. Impression: 1. Mild gastritis antrum and body biopsied. Biopsies of the GE junction and duodenum. 2. Poor prep. The area of the rectum to cecum which were visualized appeared normal, however visualization limited by poor prep. Random biopsies taken of the right and left colon the setting of altered bowel function. Recommendations: Findings of this examination were discussed with the patient. Okay to resume medications. Okay to resume diet. Await pathology from biopsies. Patient can resume regular screening interval for colonoscopies, however if other worrisome symptoms present themselves sooner follow-up is recommended.
[2019-05-29 13:06] VITALS: BP 90/55; PULSE 73; RESP 18
== END 2019-05-29 13:31 | disposition home or self-care (01) ==
LOC: ORWHC2ENDO 10:36
PROVIDERS: ATTEND Internal Medicine
DX: K21.0 Gastro-esophageal reflux disease with esophagitis (principal); K29.50 Unspecified chronic gastritis without bleeding; K57.30 Diverticulosis of large intestine without perforation or abscess without bleeding; K58.9 Irritable bowel syndrome, unspecified; I10 Essential (primary) hypertension; F41.9 Anxiety disorder, unspecified; F17.210 Nicotine dependence, cigarettes, uncomplicated; Z88.2 Allergy status to sulfonamides; Z88.6 Allergy status to analgesic agent; Z88.0 Allergy status to penicillin; Z98.890 Other specified postprocedural states; Z97.2 Presence of dental prosthetic device (complete) (partial); Z79.899 Other long term (current) drug therapy; Z80.0 Family history of malignant neoplasm of digestive organs; Z80.3 Family history of malignant neoplasm of breast
CPT/HCPCS: 88305; 45380; 43239; J2250; J2001; J3010; J2370; J2704

== ENCOUNTER 2020-03-28 11:00 | Inpatient (IN) | payer BC ==
[2020-03-28] MEDS ORDERED: NALOXONE 0.4 MG/ML 1 ML VIAL IVP STA ×2 (11:03→11:11)
[2020-03-28] MEDS ORDERED: SODIUM CHLORIDE 0.9% 500 ML 500 ML IV STA (11:08)
[2020-03-28] MEDS ORDERED: ACETAMINOPHEN TAB 500 MG TAB PO STA (11:09)
--- NOTE | 2020-03-28 11:14 | ED ---
General Adult HPI - General Stated complaint: ARLYN Time Seen by Provider: 03/28/20 11:00 Source: patient, RN notes reviewed, old records reviewed - History of Present Illness Initial comments: This is a 64-year-old female presents emergency Department with EMS for difficulty breathing. Daughter called and stated that the patient was having difficulty breathing. Patient had a pain pump replaced yesterday. Patient also is on Xanax gabapentin [place] tends and Seroquel. Patient states she has chronic pain and that is why she has a pain pump. Patient states she doesn't feel short of breath right now but did earlier. Patient denies any chest pain or palpitations. Patient denies abdominal pain patient denies nausea vomiting diarrhea. Patient denies any headache patient denies any new injury or trauma. Patient denies any new areas of pain. Patient states the site of the pain pump is tender but not more than expected - Related Data Home Medications Medication Instructions Recorded Confirmed HYDROcodone/APAP 10-325MG [[place] 1 tab PO TID PRN 02/12/17 05/27/19 10-325] Atorvastatin Calcium [Lipitor] 20 mg PO DAILY 09/02/18 05/27/19 Ergocalciferol (Vitamin D2) 50,000 unit PO STEVENSON 09/02/18 05/27/19 [Drisdol] ALPRAZolam [Xanax] 0.25 mg PO BID PRN 05/27/19 05/27/19 Chlorthalidone [Hygroten] 50 mg PO DAILY 05/27/19 05/27/19 Cyanocobalamin (Vitamin B-12) 1,000 mcg PO DAILY 05/27/19 05/27/19 [Vitamin B-12] Gabapentin [Neurontin] 300 mg PO QID 05/27/19 05/27/19 Irbesartan [Avapro] 75 mg PO BID 05/27/19 05/27/19 Morphine Sulfate [Morphine Sulfate 30 mg PO Q12H PRN MDD P 05/27/19 05/27/19 ER] Morphine/Bupivacaine Pump 0 ml .ROUTE CONTINUOUS 05/27/19 Ondansetron [Zofran] 4 mg PO Q8HR PRN 05/27/19 05/27/19 QUEtiapine [SEROquel] 100 mg PO HS 05/27/19 05/27/19 Sucralfate [Carafate] 1 gm PO ACHS 05/27/19 05/29/19 Previous Rx's Medication Instructions Recorded hydrOXYzine HCL [Atarax] 10 mg PO TID PRN #12 tab 11/15/18 Pantoprazole [Protonix] 40 mg PO AC-BID #60 tablet. 01/20/19 Allergies Allergy/AdvReac Type Severity Reaction Status Date / Time Sulfa (Sulfonamide Allergy Severe Rash/Hives, Verified 05/27/19 09:37 Antibiotics) N & V, IRREGULAR HEART BEAT. aspirin Allergy IRREGULAR Verified 05/27/19 09:37 HEART BEAT, N & V, HIVES Penicillins Allergy Unknown Verified 05/27/19 09:11 Review of Systems ROS Statement: Those systems with pertinent positive or pertinent negative responses have been documented in the HPI. ROS Other: All systems not noted in ROS Statement are negative. Past Medical History Past Medical History: Heart Failure, CVA/TIA, Hypertension, Osteoarthritis (OA), Syncope Additional Past Medical History / Comment(s): chronic back pain- has morphine pain pump implanted right abdomen., uses cane/walker prn., hx cva (pt did not know), syncope with hx of falls- states several concusions, fx spine 2018, states swelling lower extremities., gastritis, having" burning in stomach, gas and change in stools", usually eat once daily. , states she broke 4 toes last week. History of Any Multi-Drug Resistant Organisms: None Reported Past Surgical History: Back Surgery Additional Past Surgical History / Comment(s): laproscopic surgery (for miscarriage), back injections Past Anesthesia/Blood Transfusion Reactions: No Reported Reaction Past Psychological History: Anxiety, Bipolar, Depression Past Alcohol Use History: None Reported Additional Past Alcohol Use History / Comment(s): smokes 1 1/2 ppd, smoking on and off since she was 24 yrs old. Past Drug Use History: None Reported - Past Family History Father Family Medical History: Cancer, Diabetes Mellitus Mother Family Medical History: Cancer Brother(s) Family Medical History: Cancer Additional Family Medical History / Comment(s): agent orange General Exam - General Exam Comments Initial Comments: GENERAL: Patient is well-developed and well-nourished. Patient is nontoxic and well- hydrated and is in no acute distress. Patient is very lethargic ENT: Neck is soft and supple. No significant lymphadenopathy is noted. Oropharynx is clear. Moist mucous membranes. Patient's right year is swollen and patient has some mastoid tenderness on the right. Neck has full range of motion without eliciting any pain. No meningeal signs EYES: The sclera were anicteric and conjunctiva were pink and moist. Extraocular movements were intact and pupils were equal round and reactive to light. Eyelids were unremarkable. PULMONARY: Unlabored respirations. Good breath sounds bilaterally. No audible rales rhonchi or wheezing was noted. CARDIOVASCULAR: There is a regular rate and rhythm without any murmurs gallops or rubs. Femoral pulses are equal bilaterally ABDOMEN: Soft and nontender with normal bowel sounds. There is a surgical site on her lower right abdomen with jonathan and there is no sign of infection. SKIN: Skin is clear with no lesions or rashes and otherwise unremarkable. NEUROLOGIC: Patient is alert and oriented 2. Cranial nerves II through XII are grossly intact. Motor and sensory are also intact. Normal speech, volume and content. Symmetrical smile. MUSCULOSKELETAL: Normal extremities with adequate strength and full range of motion. Patient has a surgical site on her back with jonathan and again does not show any signs of infection. LYMPHATICS: No significant lymphadenopathy is noted PSYCHIATRIC: Normal psychiatric evaluation. Course Vital Signs 03/28/20 03/28/20 03/28/20 11:11 11:21 11:23 Temperature 100 F H Pulse Rate 103 H Respiratory 22 12 14 Rate Blood Pressure 84/55 O2 Sat by Pulse 95 Oximetry Procedures - Sepsis Sepsis Focused Exam #1 Time Sepsis Criteria Met: 13:00 (Source of infection not yet known) Sepsis Focused Exam Date: 03/28/20 Sepsis Focused Exam Time: 13:50 Sepsis Focused Exam Complete: Yes Vital Signs & RN Notes Reviewed: Yes Capillary Refill: < 2 Seconds: Fingers Peripheral Pulses: Weak: Radial (R) Skin Color: Normal for Patient Respiratory Exam: normal lung sounds Cardiovascular Exam: regular rate, normal rhythm Medical Decision Making - Medical Decision Making EKG shows sinus tachycardia at 102 bpm HI interval 248 QRS is 70 QT interval 3:30 QTC is 440. Patient has Q waves in II, III, and F aVF. Patient has inverted T waves in leads V2 V3 and V4. Patient's radial body weight for her height is 61.2 kg. Daughter came back to the room and she stated that the patient was feeling ill yesterday and did vomit a couple times yesterday. Chest x-ray shows questionable right lower lobe infiltrate. CT of the brain shows no acute abnormality. Patient was given 2 g Rocephin emergency department and started on vancomycin because of the potential for sepsis even though no source was found at this time. I spoke with cardiology cardiology came down and saw the patient because the elevated troponin. I spoke with Dr. Christianson he agreed to admit the patient admitted the patient I c onsulted cardiology and infectious disease and nephrology at the time of admission the patient's pulse ox was 98% on 2 L patient's blood pressure was over 100 systolic and the patient's heart rate was under 100 beats a minute - Lab Data Result diagrams: 03/28/20 11:18 03/28/20 11:18 Lab Results 03/28/20 03/28/20 03/28/20 Range/Units 11:15 11:18 11:18 WBC 21.8 H (3.8-10.6) k/uL RBC 4.60 (3.80-5.40) m/uL Hgb 13.8 (11.4-16.0) gm/dL Hct 45.8 (34.0-46.0) % MCV 99.5 (80.0-100.0) fL MCH 29.9 (25.0-35.0) pg MCHC 30.1 L (31.0-37.0) g/dL RDW 14.7 (11.5-15.5) % Plt Count 267 (150-450) k/uL Neutrophils % (Manual) 89 % Lymphocytes % (Manual) 4 % Monocytes % (Manual) 7 % Neutrophils # (Manual) 19.40 H (1.3-7.7) k/uL Lymphocytes # (Manual) 0.87 L (1.0-4.8) k/uL Monocytes # (Manual) 1.53 H (0-1.0) k/uL Nucleated RBCs 0 (0-0) /100 WBC Manual Slide Review Performed Hypochromasia Marked Macrocytosis Slight Stomatocytes Present PT 12.8 H (9.0-12.0) sec INR 1.3 H (<1.2) APTT 23.7 (22.0-30.0) sec Sodium (137-145) mmol/L Potassium 5.9 H (3.5-5.1) mmol/L Chloride (98-107) mmol/L Carbon Dioxide (22-30) mmol/L Anion Gap mmol/L BUN (7-17) mg/dL Creatinine (0.52-1.04) mg/dL Est GFR (CKD-EPI)AfAm (>60 ml/min/1.73 sqM) Est GFR (CKD-EPI)NonAf (>60 ml/min/1.73 sqM) Glucose (74-99) mg/dL Lactic Ac Sepsis Rflx Plasma Lactic Acid Kaushal (0.7-2.0) mmol/L Calcium (8.4-10.2) mg/dL Magnesium (1.6-2.3) mg/dL Total Bilirubin (0.2-1.3) mg/dL AST (14-36) U/L ALT (4-34) U/L Alkaline Phosphatase (38-126) U/L Troponin I (0.000-0.034) ng/mL Total Protein (6.3-8.2) g/dL Albumin (3.5-5.0) g/dL 03/28/20 03/28/20 03/28/20 Range/Units 11:18 11:18 11:18 WBC (3.8-10.6) k/uL RBC (3.80-5.40) m/uL Hgb (11.4-16.0) gm/dL Hct (34.0-46.0) % MCV (80.0-100.0) fL MCH (25.0-35.0) pg MCHC (31.0-37.0) g/dL RDW (11.5-15.5) % Plt Count (150-450) k/uL Neutrophils % (Manual) % Lymphocytes % (Manual) % Monocytes % (Manual) % Neutrophils # (Manual) (1.3-7.7) k/uL Lymphocytes # (Manual) (1.0-4.8) k/uL Monocytes # (Manual) (0-1.0) k/uL Nucleated RBCs (0-0) /100 WBC Manual Slide Review Hypochromasia Macrocytosis Stomatocytes PT (9.0-12.0) sec INR (<1.2) APTT (22.0-30.0) sec Sodium 133 L (137-145) mmol/L Potassium 6.4 H* (3.5-5.1) mmol/L Chloride 98 (98-107) mmol/L Carbon Dioxide 25 (22-30) mmol/L Anion Gap 10 mmol/L BUN 29 H (7-17) mg/dL Creatinine 4.12 H (0.52-1.04) mg/dL Est GFR (CKD-EPI)AfAm 13 (>60 ml/min/1.73 sqM) Est GFR (CKD-EPI)NonAf 11 (>60 ml/min/1.73 sqM) Glucose 99 (74-99) mg/dL Lactic Ac Sepsis Rflx Plasma Lactic Acid [place] 3.2 H* (0.7-2.0) mmol/L Calcium 7.6 L (8.4-10.2) mg/dL Magnesium 2.3 (1.6-2.3) mg/dL Total Bilirubin 1.0 (0.2-1.3) mg/dL AST 1741 H (14-36) U/L ALT 1788 H (4-34) U/L Alkaline Phosphatase 121 (38-126) U/L Troponin I 0.911 H* (0.000-0.034) ng/mL Total Protein 6.2 L (6.3-8.2) g/dL Albumin 3.7 (3.5-5.0) g/dL 03/28/20 Range/Units 11:53 WBC (3.8-10.6) k/uL RBC (3.80-5.40) m/uL Hgb (11.4-16.0) gm/dL Hct (34.0-46.0) % MCV (80.0-100.0) fL MCH (25.0-35.0) pg MCHC (31.0-37.0) g/dL RDW (11.5-15.5) % Plt Count (150-450) k/uL Neutrophils % (Manual) % Lymphocytes % (Manual) % Monocytes % (Manual) % Neutrophils # (Manual) (1.3-7.7) k/uL Lymphocytes # (Manual) (1.0-4.8) k/uL Monocytes # (Manual) (0-1.0) k/uL Nucleated RBCs (0-0) /100 WBC Manual Slide Review Hypochromasia Macrocytosis Stomatocytes PT (9.0-12.0) sec INR (<1.2) APTT (22.0-30.0) sec Sodium (137-145) mmol/L Potassium (3.5-5.1) mmol/L Chloride (98-107) mmol/L Carbon Dioxide (22-30) mmol/L Anion Gap mmol/L BUN (7-17) mg/dL Creatinine (0.52-1.04) mg/dL Est GFR (CKD-EPI)AfAm (>60 ml/min/1.73 sqM) Est GFR (CKD-EPI)NonAf (>60 ml/min/1.73 sqM) Glucose (74-99) mg/dL Lactic Ac Sepsis Rflx Y Plasma Lactic Acid K[place] (0.7-2.0) mmol/L Calcium (8.4-10.2) mg/dL Magnesium (1.6-2.3) mg/dL Total Bilirubin (0.2-1.3) mg/dL AST (14-36) U/L ALT (4-34) U/L Alkaline Phosphatase (38-126) U/L Troponin I (0.000-0.034) ng/mL Total Protein (6.3-8.2) g/dL Albumin (3.5-5.0) g/dL Critical Care Time Critical Care Time: Yes Total Critical Care Time: 35 Disposition Clinical Impression: Acute renal failure, Hepatitis, Sepsis, Altered mental status, Elevated troponin, Hyperkalemia, Right lower lobe pneumonia Disposition: ADMITTED IP TO THIS HOSP Referrals: Juan Diego Issa MD [Primary Care Provider] - 1-2 days Time of Disposition: 14:01
[2020-03-28 11:41] LABS: INR 1.3 (<1.2); Partial Thromboplastin Time 23.7 sec (22.0-30.0); Prothrombin Time 12.8 sec (9.0-12.0)
--- NOTE | 2020-03-28 11:42 | XR ---
EXAMINATION TYPE: XR chest 1V DATE OF EXAM: 03/28/2020 COMPARISON: 01/18/2019 INDICATION: Difficulty breathing TECHNIQUE: Single frontal view of the chest is obtained. FINDINGS: The heart size is normal. The pulmonary vasculature is normal. The lungs are clear. There is some elevation of the right diaphragm IMPRESSION: 1. No acute pulmonary process.
[2020-03-28 11:43] LABS: Albumin 3.7 g/dL (3.5-5.0); Calcium 7.6 mg/dL (8.4-10.2); Magnesium 2.3 mg/dL (1.6-2.3); Total Protein 6.2 g/dL (6.3-8.2)
[2020-03-28 11:52] LABS: Potassium 6.4 mmol/L (3.5-5.1)
[2020-03-28] MEDS ORDERED: cefTRIAXone IN SWFI 1,000 MG/10 ML SYRINGE IVP STA ×2 (12:04→12:10)
[2020-03-28 12:06] LABS: HCT 45.8 % (34.0-46.0); HGB 13.8 gm/dL (11.4-16.0); Hypochromasia Marked; MCH 29.9 pg (25.0-35.0); MCHC 30.1 g/dL (31.0-37.0); MCV 99.5 fL (80.0-100.0); Macrocytosis Slight; Mean Platelet Volume 7.6; Platelet Count 267 k/uL (150-450); RDW 14.7 % (11.5-15.5); WBC 21.8 k/uL (3.8-10.6)
[2020-03-28] MEDS ORDERED: SODIUM CHLORIDE 0.9% 1,000 ML IV ONE ×4 (12:09→18:11)
[2020-03-28] MEDS ORDERED: DEXTROSE 50% SYRINGE 50 ML IVP STA ×2 (12:14→19:22)
[2020-03-28] MEDS ORDERED: INSULIN REGULAR 100 UNIT/ML VIAL IV ONE ×2 (12:14→19:21)
[2020-03-28] MEDS ORDERED: SODIUM BICARB 8.4% 50 ML SYR (1 MEQ/ML) IV STA ×2 (12:15→19:20)
[2020-03-28] MEDS ORDERED: CALCIUM CHLORIDE 100 MG/ML 10 ML SYRINGE IVP STA (12:16)
[2020-03-28 12:28] LABS: Lymphocytes # (M) 0.87 k/uL (1.0-4.8); Monocytes # (M) 1.53 k/uL (0-1.0); Neutrophils % (M) 89 %; Nucleated Red Blood Cells 0 /100 WBC (0-0); Stomatocytes Present; Total Cells Counted 100
[2020-03-28] MEDS ORDERED: VANCOMYCIN IV PER PHARMACY 1 EACH MISC MISCELLANE PRN (12:53)
[2020-03-28] MEDS ORDERED: VANCOMYCIN 1,500 MG in SODIUM CHLORIDE 0.9% 250 ML IVPB ONE (13:15)
--- NOTE | 2020-03-28 13:41 | CT ---
EXAMINATION TYPE: CT brain wo con DATE OF EXAM: 03/28/2020 COMPARISON: 01/18/2019 INDICATION: altered mental status, Rt mastoid tenderness, Rt arm pain DLP: 1040.4 mGycm, Automated exposure control for dose reduction was used. CONTRAST: None CT of the brain is performed utilizing 3 mm thick sections through the posterior fossa and 3 mm thick sections through the remaining calvarium. Study is performed within 24 hours of arrival to the hosp ital. No abnormal hyperdensity is present to suggest an acute intracranial hemorrhage. No mass lesion is evident. No acute infarcts are evident. Ventricles and sulci are appropriate for the patient age. Paranasal sinuses and mastoid air cells within the [id number] are clear. Note is made a left septa l deviation. IMPRESSIONS: 1. Normal CT Brain 2. Normal mastoid air cells
--- NOTE | 2020-03-28 13:53 | CT ---
EXAMINATION TYPE: CT abdomen pelvis wo con DATE OF EXAM: 03/28/2020 COMPARISON: 07/13/2016 INDICATION: pain DLP: 1517.8 mGycm, Automated exposure control for dose reduction was used. CONTRAST: 0 mL of Isovue 300. Study performed without Oral Contrast TECHNIQUE: Axial images were obtained from above the diaphragm to the pubic rami in the axial plane a t 5 mm thick sections. Reconstructed images are reviewed on the computer in the coronal plane. FINDINGS: Limited CT sections are obtained the lung bases. There is a small right pleural effusion. Some adjac ent compressive atelectasis is present.. CT ABDOMEN: Liver: Normal Spleen: Normal Pancreas: The atrophic Adrenal glands: The adrenal glands are normal. Gallbladder: Some minimal wall thickening or pericholecystic fluid may be present. Clinical correlati on for acute cholecystitis is recommended. Ultrasound would be more sensitive for evaluation. Kidneys: No masses are evident. No hydronephrosis is present. No cysts are present. No renal stone s are evident. Aorta: Vascular calcification is within the aorta. Inferior vena cava: Normal. CT PELVIS: Loops of bowel within the abdomen and pelvis are normal. Study is without oral contrast limiting bowel evaluation. Appendix: Not identified. No suspicious inflammatory changes or dilated tubular structures are eviden t. Urinary bladder: Decompressed with a Joel catheter. Genitourinary structures: Uterus is normal. Adnexal regions are normal. Minimal free fluid is within the pelvis. Osseous structures: No suspicious lytic or sclerotic lesions. Degenerative disc changes are present w ithin the lumbar spine. Lower lumbar facet hypertrophy is present. IMPRESSIONS: 1. Small right pleural effusion with adjacent mild compressive atelectasis. 2. Minimal free fluid within the pelvis.
[2020-03-28 14:12] LABS: Appearance,Urine Clear (Clear); Bilirubin,Urine Negative (Negative); Blood,Urine Small (Negative); Color,Urine Yellow; Glucose,Urine (UA) 1+ (Negative); Ketones,Urine Negative (Negative); Leukocyte Esterase,Urine Negative (Negative); Mucus,Urine Rare /hpf; Nitrite,Urine Negative (Negative); Protein,Urine 1+ (Negative); RBC,Urine <1 /hpf (0-5); Specific Gravity,Urine 1.013 (1.001-1.035); Squamous Epithelial Cell,Urine 1 /hpf (0-4); Urobilinogen,Urine <2.0 mg/dL (<2.0); WBC,Urine 1 /hpf (0-5)
--- NOTE | 2020-03-28 14:18 | CONS ---
CONSULTATION Mrs. Rios is a 64-year-old female who presented to the emergency room with symptoms of dyspnea. The patient is not quite sure why she is in the emergency room. She says she was not feeling well. Cardiology consultation was requested because of troponin elevation. The patient has a known history of chronic pain. Has a pain pump changed the day before yesterday by Dr. Roberts. She is on a lot of narcotics. She has no documented history of coronary artery disease according to her. She has dyspnea on exertion related to her chronic tobacco use and chronic obstructive lung disease. She denies any dizziness or syncope. She has no peripheral edema. She denies any nausea or vomiting. In the emergency room, she was noted to be febrile with significant abnormality in the kidney function in comparison to December of 2018. The patient denies any history of myocardial infarction or congestive heart failure. She denies any history of arrhythmia. In 2018, she had an echocardiogram that showed a preserved left ventricular size and systolic function. Her coronary risk factors are positive for history of smoking, hypertension and hyperlipidemia. She is nondiabetic. MEDICATIONS: Include: , Carafate, Seroquel, morphine, Avapro, Neurontin, chlorthalidone, Lipitor 20 mg daily and Xanax. REVIEW OF SYSTEMS: RESPIRATORY system: She has dyspnea on exertion. History of chronic obstructive lung disease and chronic tobacco use. GI system: She denies any recent GI bleeding. No peptic ulcer disease. system: No dysuria or hematuria. NERVOUS SYSTEM: She has chronic back pain and had a pain pump. PHYSICAL EXAMINATION: A 64-year-old female, alert, confused at times. Blood pressure running 84/55, temperature of a 100 with a pulse rate of 103. HEAD: Normocephalic. Eyes sclerae anicteric. NECK: No bruit. LUNGS with decreased air exchange. No wheezes. HEART is regular rate and rhythm S1, S2. No S3 with systolic murmur. No diastolic murmur. ABDOMEN: Soft. The dressing for the pump noted. No organomegaly. EXTREMITIES: No edema. Decreased distal pulses. LAB DATA: Potassium 6.4. BUN and creatinine 29 and 4.12. Troponin 0.911. ALT of 1788, AST 1741. Sodium 133, white blood cell of 21.8, hemoglobin is 13.8, platelets count 267. Chest x-ray shows no acute infiltrate. EKG revealed a sinus mechanism with T-wave inversion anteriorly, cannot exclude ischemia. IMPRESSION: 1. Febrile episode with leukocytosis, source unclear. Acute kidney injury, in December of 2018 her kidney function tests were normal. 2. Abnormal liver function test. 3. Mild troponin elevation, doubt an ischemic event most likely related to her renal failure and her febrile episode and presenting supply demand mismatch. The patient has no symptoms of chest pain. 4. History of hypertension. 5. Hyperlipidemia. 6. Chronic tobacco use. RECOMMENDATIONS: From the cardiac standpoint, I see no evidence of acute coronary syndrome. I will obtain echocardiogram to evaluate left ventricular systolic function. The patient is undergoing workup in regard to her sepsis and abnormal liver and kidney functions. Depending on her progress, further recommendations will be made. Thank you for this consult. We will follow with you. RAMÍREZ / IJLatha: [id number] /
[2020-03-28] MEDS: SODIUM CHLORIDE 0.9% 1,000 ML IV SCH (15:08)
[2020-03-28 16:50] LABS: ABG Base Excess -8.7 mmol/L; ABG HCO3 23 mmol/L (21-25); ABG Oxygen Saturation 94.5 % (94-97); ABG PO2 90 mmHg (83-108); ABG TCO2 26 mmol/L (19-24); Allen Test Performed? Yes
[2020-03-28 17:01] LABS: ABG PCO2 98 mmHg (35-45); ABG PH 6.98 (7.35-7.45)
[2020-03-28] MEDS ORDERED: NALOXONE 0.4 MG/ML 1 ML VIAL IVP PRN (17:17)
[2020-03-28] MEDS ORDERED: NALOXONE 0.4 MG/ML 1 ML VIAL ONE (17:23)
[2020-03-28 17:24] LABS: Glucose,Whole Blood 95 mg/dL (75-99)
[2020-03-28 17:34] LABS: Glucose,Whole Blood 84 mg/dL (75-99)
[2020-03-28] MEDS: NALOXONE (MDV) 2 MG in SODIUM CHLORIDE 0.9% 250 ML IV SCH ×2 (17:54→21:52)
[2020-03-28] MEDS ORDERED: IPRATROPIUM-ALBUTEROL 3 ML NEB INHALATION PRN (17:57)
[2020-03-28 18:08] LABS: HCT 44.4 % (34.0-46.0); HGB 12.9 gm/dL (11.4-16.0); Hypochromasia Marked; MCH 29.1 pg (25.0-35.0); MCV 100.2 fL (80.0-100.0); Macrocytosis Slight; Mean Platelet Volume 7.7; Platelet Count 283 k/uL (150-450); RBC 4.43 m/uL (3.80-5.40); RDW 14.3 % (11.5-15.5)
[2020-03-28 18:21] LABS: Albumin 3.1 g/dL (3.5-5.0); Calcium 7.7 mg/dL (8.4-10.2); Total Bilirubin 0.7 mg/dL (0.2-1.3); Total Protein 5.6 g/dL (6.3-8.2)
[2020-03-28 18:44] LABS: Potassium 6.6 mmol/L (3.5-5.1)
[2020-03-28] MEDS ORDERED: CALCIUM GLUCONATE 1 GM in SODIUM CHLORIDE 0.9% 100 ML IVPB ONE (19:22)
[2020-03-28 19:55] LABS: Hepatitis B Core IgM Non-Reactive (Non-Reactive); Hepatitis B Surface Antigen Non-Reactive (Non-Reactive); Hepatitis C IgG Antibody Non-Reactive (Non-Reactive)
[2020-03-28] MEDS ORDERED: SODIUM BICARB 8.4% 50 ML SYR (1 MEQ/ML) ONE (19:56)
[2020-03-28] MEDS ORDERED: IPRATROPIUM-ALBUTEROL 3 ML NEB INHALATION SCH (20:00)
--- NOTE | 2020-03-28 21:07 | P.HPIM ---
History of Present Illness H&P Date: 03/28/20 Chief Complaint: Difficulty breathing Hospital course: Patient is 64-year-old female, was family doctor is Dr. pam Baker. Chronic stable medical conditions include chronic pain currently on a morphine pump , hypertension, CHF, and prior stroke who presented to the emergency department . Per the ER report patient is having difficulty breathing. Daughter called and found the same. Patient had a pain pump replaced 3 days ago. She follows with Dr. Hutton for pain pump. 3 days also she states she started having a fever. She has long-standing smoker. Baseline cough. No increased shortness of breath. Did receive some Narcan in the ER as she was a bit lethargic. When she got to the floor she again became lethargic blood gases sitting up pH of 6.88. It seemed to be a mixed respiratory and metabolic acidosis. Patient was therefore moved to the ICU with the orders for BiPAP. When I came to the ICU patient was using a BiPAP and was able to answer questions. She had a temperature of 100 the ER. On the floor she dropped respiratory rate also. She is put on a Narcan drip. Review of systems: GEN.: Tired, sleepy EYES: None HEENT: None NECK: None RESPIRATORY: Baseline short of breath CARDIOVASCULAR: None GASTROINTESTINAL: None GENITOURINARY: None MUSCULOSKELETAL: Chronic muscle pain LYMPHATICS: None HEMATOLOGICAL: None PSYCHIATRY: None NEUROLOGICAL: No focal symptoms] Past medical history to include: Chronic pain disorder, including a morphine pain pump,'s cigarette smoker, hypertension, hyperlipidemia, GERD, does use a cane walker, history of concussions L1 compression fracture, spinal stenosis bipolar Social history: Smokes a pack a day for about 40 years, no alcohol Physical examination: VITAL SIGNS: 100, 103, 22, 84 x 55, 95% on 5 L GENERAL: BMI 34.5, laying in bed, short of breath using a BiPAP tired but awake. EYES: Pupils equal. Conjunctiva normal. HEENT: External appearance of nose and ears normal, oral cavity grossly normal. NECK: JVD unable to assess; masses not palpable. HEART: First and second heart sounds are normal; no edema. LUNGS: Respiratory rate increased, accessory muscles of looking, not able to speak in full symptoms, diminished breath sounds prolonged expiration. ABDOMEN: Soft, nontender, liver spleen not palpable, no masses palpable. Right abdominal incision site healing well with the underlying pain pump PSYCH: Admin lethargic but able to answer questionsl. NEUROLOGICAL: Cranial nerves grossly intact; no facial asymmetry, power and sensation grossly intact. LYMPHATICS: No lymph nodes palpable in the axilla and neck INVESTIGATIONS, reviewed in the clinical context: White count 21.8 hemoglobin 13.6 increased neutrophils potassium 6.4 bun 29 creatinine 4.12 Lactic acid 3.2 troponin I 0.911 AST 1741, ALT 1788 Hepatitis B surface antigen, core IgM antibody, hepatitis C IgG antibody all nonreactive ABG-pH 6.98, pCO2 98, bicarb 23 acetaminophen level less than 10 UA-negative for nitrate and leukoesterase EKG tracing personally reviewed by me-normal sinus rhythm some T-wave changes Computed tomography scan of the abdomen and pelvis-nonspecific Computed tomography scan of the brain-unremarkable Chest x-ray film personally reviewed by me-no obvious infiltrate, some elevations right diaphragm Previous testing: renal function is normal in December 2018 Assessment: -Patient rather lethargic from metabolic encephalopathy. In the setting of acute renal failure patients on Neurontin [place] Seroquel Xanax Requip and viibryd. Has been put on a Narcan drip -Chronic pain syndrome with a morphine pain pump being followed by Dr. bedolla -Obesity BMI 34.5 -Likely ischemic hepatitis from hypotension -Acute kidney injury likely combination of prerenal and ATN -Septic shock and blood pressure dropping down to the 70s systolic. -Chronic L1 compression fracture -Acute hypoxic and hypercapnic respiratory failure responding to BiPAP -Mixed metabolic and respiratory acidosis -Chronic nicotine dependence, patient is a cigarette smoker -Acute COPD exacerbation in a current smoker Plan: Patient is on IV fluids. In the ICU. On a BiPAP. He started on levo fed drip. Patient had a temperature 100 in the ER. Empirically put on vancomycin and ceftriaxone. Also placed on DuoNeb. We'll hold all patient's Lipitor, Neurontin, Atarax, Seroquel, Xanax. Follow lites closely. 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 Nicotine patch. COVID 19 test ordered. Past Medical History Past Medical History: Heart Failure, CVA/TIA, Hypertension, Osteoarthritis (OA), Syncope Additional Past Medical History / Comment(s): chronic back pain- has morphine pain pump implanted right abdomen., uses cane/walker prn., hx cva (pt did not know), syncope with hx of falls- states several concusions, fx spine 2018 MRI of the lumbar spine that was done in 2018 showed degenerative disc disease, facet arthropathy, spondylolisthesis, L1 endplate compression fracture without any significant spinal stenosis and the patient had a indwelling stimulator lead. , states swelling lower extremities., gastritis, having" burning in stomach, gas and change in stools", usually eat once daily. , states she broke 4 toes last week. History of Any Multi-Drug Resistant Organisms: None Reported Past Surgical History: Back Surgery Additional Past Surgical History / Comment(s): laproscopic surgery (for miscarriage), back injections Past Anesthesia/Blood Transfusion Reactions: No Reported Reaction Past Psychological History: Anxiety, Bipolar, Depression Smoking Status: Current some day smoker Past Alcohol Use History: None Reported Additional Past Alcohol Use History / Comment(s): smokes 1 1/2 ppd, smoking on and off since she was 24 yrs old. Past Drug Use History: None Reported - Past Family History Father Family Medical History: Cancer, Diabetes Mellitus Mother Family Medical History: Cancer Brother(s) Family Medical History: Cancer Additional Family Medical History / Comment(s): agent orange Medications and Allergies Home Medications Medication Instructions Recorded Confirmed Type HYDROcodone/APAP 10-325MG [[place] 1 tab PO TID PRN 02/12/17 03/28/20 History 10-325] Atorvastatin Calcium [Lipitor] 20 mg PO DAILY 09/02/18 03/28/20 History Ergocalciferol (Vitamin D2) 50,000 unit PO [place] 09/02/18 03/28/20 History [Drisdol] hydrOXYzine HCL [Atarax] 10 mg PO TID PRN #12 tab 11/15/18 03/28/20 Rx Cyanocobalamin (Vitamin B-12) 1,000 mcg PO DAILY 05/27/19 03/28/20 History [Vitamin B-12] Gabapentin [Neurontin] 300 mg PO TID 05/27/19 03/28/20 History Irbesartan [Avapro] 75 mg PO BID 05/27/19 03/28/20 History Morphine/Bupivacaine Pump 0 ml .ROUTE CONTINUOUS 05/27/19 03/28/20 History QUEtiapine [SEROquel] 100 mg PO HS 05/27/19 03/28/20 History Sucralfate [Carafate] 2 gm PO BID 05/27/19 03/28/20 History ALPRAZolam [Xanax] 0.5 mg PO TID PRN 03/28/20 03/28/20 History Furosemide [Lasix] 40 mg PO DAILY 03/28/20 03/28/20 History Potassium Chloride ER [K-Dur 10] 10 meq PO DAILY 03/28/20 03/28/20 History Vilazodone HCl [Viibryd] 10 mg PO DAILY 03/28/20 03/28/20 History rOPINIRole HCL [Requip] 1 mg PO HS 03/28/20 03/28/20 History Allergies Allergy/AdvReac Type Severity Reaction Status Date / Time Sulfa (Sulfonamide Allergy Severe Rash/Hives, Verified 03/28/20 14:32 Antibiotics) N & V, IRREGULAR HEART BEAT. aspirin Allergy IRREGULAR Verified 03/28/20 14:32 HEART BEAT, N & V, HIVES Penicillins Allergy Unknown Verified 03/28/20 14:32 Physical Exam Vitals: Vital Signs Temp Pulse Resp BP Pulse Ox 03/28/20 19:00 87 17 81/71 84 L 03/28/20 18:45 88 18 93/62 89 L 03/28/20 18:30 86 10 L 83/56 96 03/28/20 18:15 88 10 L 61/44 95 03/28/20 18:00 87 25 H 87/66 97 03/28/20 17:54 8 L 03/28/20 17:45 97.1 F L 85 10 L 90/60 82 L 03/28/20 17:23 10 L 03/28/20 16:49 10 L 03/28/20 15:03 100 18 102/65 94 L 03/28/20 14:28 99 16 106/86 94 L 03/28/20 11:23 14 03/28/20 11:21 12 03/28/20 11:11 100 F H 103 H 22 84/55 95 Intake and Output 03/28/20 03/28/20 03/28/20 06:59 14:59 22:59 Intake Total 1130 Output Total 220 Balance 910 Intake: Intake, IV Titration 1130 Amount Sodium Chloride 0.9% 1, 130 000 ml @ 130 mls/hr IV . Q7H42M [facility] Rx#:[id number] Sodium Chloride 0.9% 1, 1000 000 ml @ 999 mls/hr IV . Q1H1M [facility] Rx#:[id number] Output: Urine 220 Other: Voiding Method Indwelling Catheter # Bowel Movements 1 Weight 99.79 kg 99.79 kg Results CBC & Chem 7: 03/28/20 17:47 03/28/20 17:47 Labs: Abnormal Lab Results - Last 24 Hours (Table) 03/28/20 03/28/20 03/28/20 Range/Units 11:15 11:18 11:18 WBC 21.8 H (3.8-10.6) k/uL MCV (80.0-100.0) fL MCHC 30.1 L (31.0-37.0) g/dL Neutrophils # (Manual) 19.40 H (1.3-7.7) k/uL Lymphocytes # (Manual) 0.87 L (1.0-4.8) k/uL Monocytes # (Manual) 1.53 H (0-1.0) k/uL PT 12.8 H (9.0-12.0) sec INR 1.3 H (<1.2) ABG pH (7.35-7.45) ABG pCO2 (35-45) mmHg ABG Total CO2 (19-24) mmol/L Sodium (137-145) mmol/L Potassium 5.9 H (3.5-5.1) mmol/L Carbon Dioxide (22-30) mmol/L BUN (7-17) mg/dL Creatinine (0.52-1.04) mg/dL Glucose (74-99) mg/dL Plasma Lactic Acid K[place]hal (0.7-2.0) mmol/L Calcium (8.4-10.2) mg/dL AST (14-36) U/L ALT (4-34) U/L Troponin I (0.000-0.034) ng/mL Total Protein (6.3-8.2) g/dL Albumin (3.5-5.0) g/dL Urine Protein (Negative) Urine Glucose (UA) (Negative) Urine Blood (Negative) Urine Mucus (None) /hpf 03/28/20 03/28/20 03/28/20 Range/Units 11:18 11:18 11:18 WBC (3.8-10.6) k/uL MCV (80.0-100.0) fL MCHC (31.0-37.0) g/dL Neutrophils # (Manual) (1.3-7.7) k/uL Lymphocytes # (Manual) (1.0-4.8) k/uL Monocytes # (Manual) (0-1.0) k/uL PT (9.0-12.0) sec INR (<1.2) ABG pH (7.35-7.45) ABG pCO2 (35-45) mmHg ABG Total CO2 (19-24) mmol/L Sodium 133 L (137-145) mmol/L Potassium 6.4 H* (3.5-5.1) mmol/L Carbon Dioxide (22-30) mmol/L BUN 29 H (7-17) mg/dL Creatinine 4.12 H (0.52-1.04) mg/dL Glucose (74-99) mg/dL Plasma Lactic Acid Kaushal 3.2 H* (0.7-2.0) mmol/L Calcium 7.6 L (8.4-10.2) mg/dL AST 1741 H (14-36) U/L ALT 1788 H (4-34) U/L Troponin I 0.911 H* (0.000-0.034) ng/mL Total Protein 6.2 L (6.3-8.2) g/dL Albumin (3.5-5.0) g/dL Urine Protein (Negative) Urine Glucose (UA) (Negative) Urine Blood (Negative) Urine Mucus (None) /hpf 03/28/20 03/28/20 03/28/20 Range/Units 13:55 14:24 16:37 WBC (3.8-10.6) k/uL MCV (80.0-100.0) fL MCHC (31.0-37.0) g/dL Neutrophils # (Manual) (1.3-7.7) k/uL Lymphocytes # (Manual) (1.0-4.8) k/uL Monocytes # (Manual) (0-1.0) k/uL PT (9.0-12.0) sec INR (<1.2) ABG pH 6.98 L* (7.35-7.45) ABG pCO2 98 H* (35-45) mmHg ABG Total CO2 26 H (19-24) mmol/L Sodium (137-145) mmol/L Potassium (3.5-5.1) mmol/L Carbon Dioxide (22-30) mmol/L BUN (7-17) mg/dL Creatinine (0.52-1.04) mg/dL Glucose (74-99) mg/dL Plasma Lactic Acid Kaushal 3.0 H* (0.7-2.0) mmol/L Calcium (8.4-10.2) mg/dL AST (14-36) U/L ALT (4-34) U/L Troponin I (0.000-0.034) ng/mL Total Protein (6.3-8.2) g/dL Albumin (3.5-5.0) g/dL Urine Protein 1+ H (Negative) Urine Glucose (UA) 1+ H (Negative) Urine Blood Small H (Negative) Urine Mucus Rare H (None) /hpf 03/28/20 03/28/20 Range/Units 17:47 17:47 WBC 24.0 H (3.8-10.6) k/uL MCV 100.2 H (80.0-100.0) fL MCHC 29.0 L (31.0-37.0) g/dL Neutrophils # (Manual) (1.3-7.7) k/uL Lymphocytes # (Manual) (1.0-4.8) k/uL Monocytes # (Manual) (0-1.0) k/uL PT (9.0-12.0) sec INR (<1.2) ABG pH (7.35-7.45) ABG pCO2 (35-45) mmHg ABG Total CO2 (19-24) mmol/L Sodium 136 L (137-145) mmol/L Potassium 6.6 H* (3.5-5.1) mmol/L Carbon Dioxide 21 L (22-30) mmol/L BUN 31 H (7-17) mg/dL Creatinine 3.75 H (0.52-1.04) mg/dL Glucose 107 H (74-99) mg/dL Plasma Lactic Acid K[place]hal (0.7-2.0) mmol/L Calcium 7.7 L (8.4-10.2) mg/dL AST 5702 H (14-36) U/L ALT 4690 H (4-34) U/L Troponin I (0.000-0.034) ng/mL Total Protein 5.6 L (6.3-8.2) g/dL Albumin 3.1 L (3.5-5.0) g/dL Urine Protein (Negative) Urine Glucose (UA) (Negative) Urine Blood (Negative) Urine Mucus (None) /hpf Thrombosis Risk Factor Assmnt - Choose All That Apply Any of the Below Risk Factors Present?: Yes Each Factor Represents 1 point: Abnormal pulmonary function (COPD) Other Risk Factors: Yes Each Risk Factor Represents 2 Points: Age 61-74 years Thrombosis Risk Factor Assessment Total Risk Factor Score: 3 Thrombosis Risk Factor Assessment Level: Moderate Risk
[2020-03-28] MEDS: NICOTINE 21MG/24HR PATCH TRANSDERM SCH (21:58)
[2020-03-28] MEDS: IPRATROPIUM-ALBUTEROL 3 ML NEB INHALATION SCH (23:58)
--- NOTE | 2020-03-28 23:59 | P.CONS ---
History of Present Illness - Reason for Consult Consult date: 03/28/20 Sepsis Requesting physician: Miguel Kelly - Chief Complaint Shortness of breath x one day - History of Present Illness Patient is a 64-year-old male with a past medical history significant for chronic pain syndrome in this patient who recently did have a pain pump placement by Dr. valle,patient has been brought into the ER at [facility] by with concern for difficulty in breathing patient sed rate is going on for about a day before the patient has been brought into the hospital. Denies having any chest pain patient did have very minimal cough and is not bringing up any sputum denies having any URI symptoms no nausea no vomiting no choking on food no abdominal pain or any diarrhea with the symptoms the patient was evaluated by the ER physician on arrival to the ER the patient did have low-grade fever of 100F , patient did have elevated white count of 21,000 she did have elevated creatinine of 4.12 repeat creatinine is down to 3.75, patient also have significantly elevated liver enzymes, patient did have a CT of abdominal pelvis without contrast which was small right pleural effusion and compressive atelectasis, there was evidence of, but wall thickening and pericholecystic fluid concern for possible cholecystitis, patient had been started on Rocephin 1 g daily and vancomycin she was initially admitted to the floor subsequent has been transferred to the ICU because of respiratory status infection disease was consulted for further management of antibiotic therapy patient is currently not on any pressor support Review of Systems Positive point has been mentioned in the HPI rest of the systems are negative Past Medical History Past Medical History: Heart Failure, CVA/TIA, Hypertension, Osteoarthritis (OA), Syncope Additional Past Medical History / Comment(s): chronic back pain- has morphine pain pump implanted right abdomen., uses cane/walker prn., hx cva (pt did not know), syncope with hx of falls- states several concusions, fx spine 2018 MRI of the lumbar spine that was done in 2018 showed degenerative disc disease, facet arthropathy, spondylolisthesis, L1 endplate compression fracture without any significant spinal stenosis and the patient had a indwelling stimulator lead. , states swelling lower extremities., gastritis, having" burning in stomach, gas and change in stools", usually eat once daily. , states she broke 4 toes last week. History of Any Multi-Drug Resistant Organisms: None Reported Past Surgical History: Back Surgery Additional Past Surgical History / Comment(s): laproscopic surgery (for miscarriage), back injections Past Anesthesia/Blood Transfusion Reactions: No Reported Reaction Past Psychological History: Anxiety, Bipolar, Depression Smoking Status: Current some day smoker Past Alcohol Use History: None Reported Additional Past Alcohol Use History / Comment(s): smokes 1 1/2 ppd, smoking on and off since she was 24 yrs old. Past Drug Use History: None Reported - Past Family History Father Family Medical History: Cancer, Diabetes Mellitus Mother Family Medical History: Cancer Brother(s) Family Medical History: Cancer Additional Family Medical History / Comment(s): agent orange Medications and Allergies Home Medications Medication Instructions Recorded Confirmed Type HYDROcodone/APAP 10-325MG [[place] 1 tab PO TID PRN 02/12/17 03/28/20 History 10-325] Atorvastatin Calcium [Lipitor] 20 mg PO DAILY 09/02/18 03/28/20 History Ergocalciferol (Vitamin D2) 50,000 unit PO [place] 09/02/18 03/28/20 History [Drisdol] hydrOXYzine HCL [Atarax] 10 mg PO TID PRN #12 tab 11/15/18 03/28/20 Rx Cyanocobalamin (Vitamin B-12) 1,000 mcg PO DAILY 05/27/19 03/28/20 History [Vitamin B-12] Gabapentin [Neurontin] 300 mg PO TID 05/27/19 03/28/20 History Irbesartan [Avapro] 75 mg PO BID 05/27/19 03/28/20 History Morphine/Bupivacaine Pump 0 ml .ROUTE CONTINUOUS 05/27/19 03/28/20 History QUEtiapine [SEROquel] 100 mg PO HS 05/27/19 03/28/20 History Sucralfate [Carafate] 2 gm PO BID 05/27/19 03/28/20 History ALPRAZolam [Xanax] 0.5 mg PO TID PRN 03/28/20 03/28/20 History Furosemide [Lasix] 40 mg PO DAILY 03/28/20 03/28/20 History Potassium Chloride ER [K-Dur 10] 10 meq PO DAILY 03/28/20 03/28/20 History Vilazodone HCl [Viibryd] 10 mg PO DAILY 03/28/20 03/28/20 History rOPINIRole HCL [Requip] 1 mg PO HS 03/28/20 03/28/20 History Allergies Allergy/AdvReac Type Severity Reaction Status Date / Time Sulfa (Sulfonamide Allergy Severe Rash/Hives, Verified 03/28/20 14:32 Antibiotics) N & V, IRREGULAR HEART BEAT. aspirin Allergy IRREGULAR Verified 03/28/20 14:32 HEART BEAT, N & V, HIVES Penicillins Allergy Unknown Verified 03/28/20 14:32 Physical Exam Vitals: Vital Signs Temp Pulse Resp BP Pulse Ox 03/28/20 23:00 98 20 123/76 90 L 03/28/20 22:30 96 12 124/73 91 L 03/28/20 22:00 97 14 104/73 91 L 03/28/20 21:52 12 03/28/20 21:30 96 14 116/71 88 L 03/28/20 21:00 98 12 111/68 89 L 03/28/20 20:30 96 12 116/66 88 L 03/28/20 20:00 92 14 105/82 89 L 03/28/20 19:30 93 10 L 101/53 90 L 03/28/20 19:00 87 17 81/71 84 L 03/28/20 18:45 88 18 93/62 89 L 03/28/20 18:30 86 10 L 83/56 96 03/28/20 18:15 88 10 L 61/44 95 03/28/20 18:00 87 25 H 87/66 97 03/28/20 17:54 8 L 03/28/20 17:45 97.1 F L 85 10 L 90/60 82 L 03/28/20 17:23 10 L 03/28/20 16:49 10 L 03/28/20 15:03 100 18 102/65 94 L 03/28/20 14:28 99 16 106/86 94 L 03/28/20 11:23 14 03/28/20 11:21 12 03/28/20 11:11 100 F H 103 H 22 84/55 95 Intake and Output 03/28/20 03/28/20 03/29/20 14:59 22:59 06:59 Intake Total 2305 0 Output Total 260 0 Balance 2045 0 Intake: IV 920 0 Calcium Gluconate 1 gm In 100 Sodium Chloride 0.9% 100 ml @ 100 mls/hr IVPB ONCE ONE Rx#:[id number] Naloxone (Mdv) 2 mg In 300 0 Sodium Chloride 0.9% 250 ml @ 0.6 MG/HR 76.5 mls/ hr IV .Q3H20M [facility] Rx#: [id number] Sodium Chloride 0.9% 1, 520 0 000 ml @ 130 mls/hr IV . Q7H42M [facility] Rx#:[id number] Intake, IV Titration 1385 Amount Naloxone (Mdv) 2 mg In 255 Sodium Chloride 0.9% 250 ml @ 0.6 MG/HR 76.5 mls/ hr IV .Q3H20M [facility] Rx#: [id number] Sodium Chloride 0.9% 1, 130 000 ml @ 130 mls/hr IV . Q7H42M [facility] Rx#:[id number] Sodium Chloride 0.9% 1, 1000 000 ml @ 999 mls/hr IV . Q1H1M [facility] Rx#:[id number] Output: Urine 260 0 Other: Voiding Method Indwelling Catheter # Bowel Movements 1 Weight 99.79 kg 99.79 kg GENERAL DESCRIPTION: Middle-aged female lying in bed, no distress. No tachypnea or accessory muscle of respiration use. HEENT: Shows Pallor , no scleral icterus. Oral mucous membrane is dry. No pharyngeal erythema or thrush NECK: Trachea central, no thyromegaly. LUNGS: Unlabored breathing. Decreased breath sounds at the base. No wheeze or crackle. HEART: S1, S2, regular rate and rhythm. No loud murmur ABDOMEN: Soft, no tenderness , guarding or rigidity, no organomegaly EXTREMITIES: No edema of feet. SKIN: No rash, no masses palpable. NEUROLOGICAL: The patient is awake, alert, oriented x3, mood and affect normal. Results CBC & Chem 7: 03/28/20 17:47 03/28/20 17:47 Labs: Abnormal Lab Results - Last 24 Hours (Table) 03/28/20 03/28/20 03/28/20 Range/Units 11:15 11:18 11:18 WBC 21.8 H (3.8-10.6) k/uL MCV (80.0-100.0) fL MCHC 30.1 L (31.0-37.0) g/dL Neutrophils # (Manual) 19.40 H (1.3-7.7) k/uL Lymphocytes # (Manual) 0.87 L (1.0-4.8) k/uL Monocytes # (Manual) 1.53 H (0-1.0) k/uL PT 12.8 H (9.0-12.0) sec INR 1.3 H (<1.2) ABG pH (7.35-7.45) ABG pCO2 (35-45) mmHg ABG Total CO2 (19-24) mmol/L Sodium (137-145) mmol/L Potassium 5.9 H (3.5-5.1) mmol/L Carbon Dioxide (22-30) mmol/L BUN (7-17) mg/dL Creatinine (0.52-1.04) mg/dL Glucose (74-99) mg/dL Plasma Lactic Acid Kaushal (0.7-2.0) mmol/L Calcium (8.4-10.2) mg/dL AST (14-36) U/L ALT (4-34) U/L Troponin I (0.000-0.034) ng/mL Total Protein (6.3-8.2) g/dL Albumin (3.5-5.0) g/dL Urine Protein (Negative) Urine Glucose (UA) (Negative) Urine Blood (Negative) Urine Mucus (None) /hpf 03/28/20 03/28/20 03/28/20 Range/Units 11:18 11:18 11:18 WBC (3.8-10.6) k/uL MCV (80.0-100.0) fL MCHC (31.0-37.0) g/dL Neutrophils # (Manual) (1.3-7.7) k/uL Lymphocytes # (Manual) (1.0-4.8) k/uL Monocytes # (Manual) (0-1.0) k/uL PT (9.0-12.0) sec INR (<1.2) ABG pH (7.35-7.45) ABG pCO2 (35-45) mmHg ABG Total CO2 (19-24) mmol/L Sodium 133 L (137-145) mmol/L Potassium 6.4 H* (3.5-5.1) mmol/L Carbon Dioxide (22-30) mmol/L BUN 29 H (7-17) mg/dL Creatinine 4.12 H (0.52-1.04) mg/dL Glucose (74-99) mg/dL Plasma Lactic Acid Kaushal 3.2 H* (0.7-2.0) mmol/L Calcium 7.6 L (8.4-10.2) mg/dL AST 1741 H (14-36) U/L ALT 1788 H (4-34) U/L Troponin I 0.911 H* (0.000-0.034) ng/mL Total Protein 6.2 L (6.3-8.2) g/dL Albumin (3.5-5.0) g/dL Urine Protein (Negative) Urine Glucose (UA) (Negative) Urine Blood (Negative) Urine Mucus (None) /hpf 03/28/20 03/28/20 03/28/20 Range/Units 13:55 14:24 16:37 WBC (3.8-10.6) k/uL MCV (80.0-100.0) fL MCHC (31.0-37.0) g/dL Neutrophils # (Manual) (1.3-7.7) k/uL Lymphocytes # (Manual) (1.0-4.8) k/uL Monocytes # (Manual) (0-1.0) k/uL PT (9.0-12.0) sec INR (<1.2) ABG pH 6.98 L* (7.35-7.45) ABG pCO2 98 H* (35-45) mmHg ABG Total CO2 26 H (19-24) mmol/L Sodium (137-145) mmol/L Potassium (3.5-5.1) mmol/L Carbon Dioxide (22-30) mmol/L BUN (7-17) mg/dL Creatinine (0.52-1.04) mg/dL Glucose (74-99) mg/dL Plasma Lactic Acid Kaushal 3.0 H* (0.7-2.0) mmol/L Calcium (8.4-10.2) mg/dL AST (14-36) U/L ALT (4-34) U/L Troponin I (0.000-0.034) ng/mL Total Protein (6.3-8.2) g/dL Albumin (3.5-5.0) g/dL Urine Protein 1+ H (Negative) Urine Glucose (UA) 1+ H (Negative) Urine Blood Small H (Negative) Urine Mucus Rare H (None) /hpf 03/28/20 03/28/20 Range/Units 17:47 17:47 WBC 24.0 H (3.8-10.6) k/uL MCV 100.2 H (80.0-100.0) fL MCHC 29.0 L (31.0-37.0) g/dL Neutrophils # (Manual) (1.3-7.7) k/uL Lymphocytes # (Manual) (1.0-4.8) k/uL Monocytes # (Manual) (0-1.0) k/uL PT (9.0-12.0) sec INR (<1.2) ABG pH (7.35-7.45) ABG pCO2 (35-45) mmHg ABG Total CO2 (19-24) mmol/L Sodium 136 L (137-145) mmol/L Potassium 6.6 H* (3.5-5.1) mmol/L Carbon Dioxide 21 L (22-30) mmol/L BUN 31 H (7-17) mg/dL Creatinine 3.75 H (0.52-1.04) mg/dL Glucose 107 H (74-99) mg/dL Plasma Lactic Acid Kaushal (0.7-2.0) mmol/L Calcium 7.7 L (8.4-10.2) mg/dL AST 5702 H (14-36) U/L ALT 4690 H (4-34) U/L Troponin I (0.000-0.034) ng/mL Total Protein 5.6 L (6.3-8.2) g/dL Albumin 3.1 L (3.5-5.0) g/dL Urine Protein (Negative) Urine Glucose (UA) (Negative) Urine Blood (Negative) Urine Mucus (None) /hpf Assessment and Plan Assessment: 1- patient presented to hospital with increasing shortness of breath in this patient noticed to have low-grade fever significantly elevated white count with the elevated liver enzymes and see the abdominal pelvis has been suspicious for possible cholecystitis though chest x-ray and CT did not show any evidence of significant consolidation patient to have significant cough or sputum production clinical suspicious low for underlying pneumonia 2-Patient with multiple antibiotic ALLERGIES that would limit the number of antibiotic safe to use 3-elevated creatinine high risk of nephrotoxicity (1) Sepsis Current Visit: Yes Status: Acute Code(s): A41.9 - SEPSIS, UNSPECIFIED ORGANISM SNOMED Code(s): 53288353 Plan: 1- we will check an ultrasound of her liver and gallbladder area 2-continue with the vancomycin and Rocephin empirically started while waiting for the culture finalized 3- IV fluid Will follow on a clinical condition and cultures to further adjust medication if needed Thank you for this consultation will follow this patient along with you Time with Patient: Greater than 30
[2020-03-29] MEDS: NOREPINEPHRINE 4 MG in SODIUM CHLORIDE 0.9% 250 ML IV SCH ×3 (02:43→21:09)
[2020-03-29] MEDS: SODIUM CHLORIDE 0.9% 1,000 ML IV SCH ×5 (02:43→21:08)
[2020-03-29] MEDS: NALOXONE (MDV) 2 MG in SODIUM CHLORIDE 0.9% 250 ML IV SCH ×8 (02:44→21:09)
[2020-03-29] MEDS: IPRATROPIUM-ALBUTEROL 3 ML NEB INHALATION SCH ×6 (04:18→23:48)
--- NOTE | 2020-03-29 04:32 | CONS ---
CONSULTATION PULMONARY/CRITICAL CARE CONSULTATION: DATE OF CONSULTATION: March 28, 2020. REASON FOR CONSULTATION: Hypercapnic respiratory failure. This is a 64-year-old female who presented to the emergency room on March 28 at 1100. The patient apparently came into the emergency room brought in by EMS for difficulty breathing. I was called from the floor. I ask for an A-team on this patient and I also asked the patient to be transferred up to the ICU. Blood gases were done. The blood gases on 36% oxygen showed a pO2 of 90, pCO2 of 98, and pH of 6.977. The patient had a pain pump replaced recently. I gave her Narcan and started a Narcan drip. Surprisingly, she is much more awake and alert. I thought initially that I might have to intubate her, but I think we can ride her through with the Narcan drip. The patient is mostly alert. She does doze off. There were periods of time on the floor that she apparently was apneic. The patient was initially seen in the ER, transferred to [address] [place] [address] and then to the ICU. Currently, she denies any chest pain or chest discomfort. She denies any nausea, vomiting, diarrhea, or abdominal pain. She denies any genitourinary complaints. She states that her breathing is a bit off. HOME MEDICATIONS: Home medications include [place], Lipitor, vitamin D2, Xanax, [place], vitamin B12, Neurontin, Avapro, morphine sulfate, morphine, bupivacaine pump, Zofran Seroquel, and Carafate. She has also been on Atarax and Protonix. ALLERGIES: SULFA, ASPIRIN and PENICILLINS. PAST MEDICAL HISTORY: Her past medical history includes CHF, CVA, hypertension, DJD, syncope, chronic back pain, spine fracture 2017, lower extremity edema, gastritis, and some fractured toes recently. SURGICAL HISTORY: Surgical history includes back surgery, laparoscopic surgery following a miscarriage, and back injections. She also carries with her diagnoses of anxiety, bipolar disorder, depression. SOCIAL HISTORY: Apparently negative for illicit drug use. She does drink alcohol rarely. She does smoke 1-1/2 packs a day. She has been smoking on and off since the age of 24, that is about 40 years. FAMILY HISTORY: Positive for father with cancer and diabetes mellitus and a mother with cancer. She has a brother with cancer as well. REVIEW OF SYSTEMS: CONSTITUTIONAL: Negative. NEUROLOGIC: Confusion. HEENT: Negative. CARDIOVASCULAR: Negative. PULMONARY: Shortness of breath GI: Negative. : Negative. RHEUMATOLOGIC: Back pain. IMMUNOLOGIC: Negative. ENDOCRINOLOGIC: Negative. DERMATOLOGIC: Negative. PHYSICAL EXAMINATION: VITAL SIGNS: Current vital signs are reviewed. Her most recent temperature is 100 degrees. Heart rate 100, respiratory rate 6 to 10 breaths per minute before Narcan. Blood pressure 102/65, mean 77 and 4 L saturation is 94%. She was on BiPAP at 12/5 and 40%, but she kept on ripping the mask off, so I asked the nurses and respiratory therapy to place her on nasal O2. We are going to accept saturations between 88% and 92%. She is getting saline at KVO. HEENT: Examination is grossly unremarkable. BiPAP mask initially seen, but the patient did not want to wear it. NECK: Supple. Full range of motion. CARDIOVASCULAR: Examination reveals tachycardia. Heart rate 100. S1, S2 normal. LUNGS: Reveal diminished breath sounds throughout. She does not take deep breaths. I do not hear any adventitious lung sounds. ABDOMEN: Is rounded. Bowel sounds are heard. Abdomen is soft. EXTREMITIES: Are intact. Minimal edema. SKIN: Without rash. NEUROLOGIC: Examination is difficult to assess because she is a bit sleepy and lethargic, but she does arouse. LABS: Labs are reviewed. White count 21.8, hemoglobin 13.8, hematocrit 45.8, platelet count 267,000. PT 12.8, INR 1.3, PTT 63.7. Blood gases show pO2 of 90, pCO2 of 98, and pH of 6.98. This is consistent with alveolar hypoventilation. This was on 40%. Sodium 133, potassium 6.4, chloride 98, CO2 of 25. Anion gap 10. BUN and creatinine were 29 and 4.12. Lactic acid was 3. Calcium 7.6. AST 1748, ALT 1488. Troponin 0.911. Urine had 1+ protein, 1+ glucose, small amount of blood. The patient had a chest x-ray which showed nothing acute in my opinion. A brain CT was done. It showed a normal CT of the brain. Abdomen and pelvic CT scan showed a small right pleural effusion and minimal free fluid within the pelvis. CURRENT MEDICATIONS: Current medications are reviewed. They will be adjusted accordingly. She is on Rocephin, Narcan, Narcan drip of 0.6 mg/hour for 6 hours, saline at KVO and vancomycin. Her admission diagnosis in the emergency room was renal failure, hepatitis, sepsis, mental status changes, elevated troponin, hyperkalemia, and possible right lower lobe pneumonia. ASSESSMENT: 1. Hypercapnic respiratory failure with profound alveolar hypoventilation, probably narcotic induced, patient responded very well to Narcan. Currently on Narcan drip of 0.6 mg an hour for 6 hours. 2. Acute kidney injury, with hyperkalemia. 3. Lactic acidosis. 4. Hepatitis of unclear etiology. 5. Elevated troponin, rule out non ST-segment elevation myocardial infarction. 6. Chronic back pain, status post back injections and pain pump implantation as well as multiple narcotics for pain control. 7. History of congestive heart failure. 8. Cerebrovascular accident. 9. Hypertension. 10.Degenerative joint disease. 11.Syncope. 12.History of gastritis. PLAN: The patient's narcotics will be held at this time. We will place her on a Narcan drip at 0.6 mg an hour for 6 hours. The patient does not want to wear the BiPAP. We will place her on nasal O2. We will accept saturations between 88% and 92%. The patient will be monitored closely. I will keep the antibiotics for now. No additional recommendations are made. If the patient does not turn around, she may need to be intubated and mechanically ventilated. Additional recommendations and suggestions are forthcoming. Medications are adjusted accordingly. We will keep her n.p.o. for now. MMODL / IJN: [id number] /
[2020-03-29 04:35] LABS: Basophils % (A) 0 %; Eosinophils # (A) 0.1 k/uL (0-0.7); Eosinophils % (A) 1 %; HCT 44.3 % (34.0-46.0); HGB 13.3 gm/dL (11.4-16.0); Hypochromasia Marked; Lymphocytes # (A) 0.9 k/uL (1.0-4.8); Lymphocytes % (A) 4 %; MCH 30.2 pg (25.0-35.0); MCHC 30.1 g/dL (31.0-37.0); MCV 100.2 fL (80.0-100.0); Macrocytosis Slight; Mean Platelet Volume 7.9; Monocytes # (A) 0.8 k/uL (0-1.0); Monocytes % (A) 3 %; Neutrophils # (A) 20.9 k/uL (1.3-7.7); Neutrophils % (A) 91 %; Platelet Count 193 k/uL (150-450); RBC 4.42 m/uL (3.80-5.40); RDW 14.6 % (11.5-15.5); WBC 22.9 k/uL (3.8-10.6)
[2020-03-29 04:52] LABS: Calcium 7.5 mg/dL (8.4-10.2); Potassium 5.4 mmol/L (3.5-5.1); Total Bilirubin 0.6 mg/dL (0.2-1.3); Total Protein 5.6 g/dL (6.3-8.2)
[2020-03-29] MEDS ORDERED: SODIUM CHLORIDE 0.9% 1,000 ML IV ONE ×2 (07:41→08:03)
[2020-03-29 07:58] LABS: ABG Base Excess -8.2 mmol/L; ABG HCO3 22 mmol/L (21-25); ABG Oxygen Saturation 92.4 % (94-97); ABG PO2 73 mmHg (83-108); ABG TCO2 24 mmol/L (19-24); Allen Test Performed? Yes
[2020-03-29 08:01] LABS: ABG PCO2 71 mmHg (35-45); ABG PH 7.09 (7.35-7.45)
--- NOTE | 2020-03-29 08:22 | US ---
EXAMINATION TYPE: US abdomen complete DATE OF EXAM: 03/29/2020 COMPARISON: CT, & US CLINICAL HISTORY: Abnormal CT question of cholecystitis. Abnormal CT EXAM MEASUREMENTS: Liver Length: 18.2 cm Gallbladder Wall: 0.6 cm CBD: 0.7 cm Spleen: 7.8 cm Right Kidney: 11.9 x 5.7 x 5.4 cm Left Kidney: 11.2 x 5.8 x 4.9 cm ICU pt, difficult scan Pancreas: Obscured by bowel gas Liver: Limited visualization wnl, size upper limits of normal Gallbladder: Lumen clear, wall thickened with possible pericholecystic fluid Evidence for sonographic Davis's sign: No CBD: Upper limits of normal Spleen: wnl Right Kidney: No evidence of hydro, lower pole gassed out Left Kidney: No evidence of hydro, lower pole gassed out Upper IVC: wnl Abd Aorta: Mid portion wnl, proximal and distal portions obscured by overlying bowel IMPRESSION: 1. Thickened gallbladder wall suggesting pericholecystic fluid correlate for cholecystitis. CBD measu res slightly dilated at 7 mm. Distal CBD obstruction not excluded correlate clinically
--- NOTE | 2020-03-29 08:32 | XR ---
EXAMINATION TYPE: XR chest 1V DATE OF EXAM: 03/29/2020 COMPARISON: 03/28/2020 HISTORY: Shortness of breath TECHNIQUE: Single frontal view of the chest is obtained. FINDINGS: Left lower lobe infiltrate and small effusion. Biapical pleural thickening. No overt failu re. Heart size stable. IMPRESSION: Left lower lobe infiltrate correlate for pneumonia.
--- NOTE | 2020-03-29 09:16 | P.NPCON ---
History of Present Illness - Reason for Consult acute renal failure - History of Present Illness reason for consultation: Acute kidney injury History of present illness: patient is a 64-year-old female seen in renal consultation for acute kidney injury and hyperkalemia. Patient's creatinine was 4.120 admission and is 3.65 today. creatinine in December 2018 was 0.63. 5.9 on admission and went up to 6.6. It was medically treated with IV calcium, IV bicarb, IV insulin with D50. Potassium level now is stable to 5.4. her blood pressure was in the systolic 60s to 80s on admission. She is currently receiving 50 L of normal saline bolus. She is also on maintenance fluids with normal saline running at 1 30 mL an hour. urine output is about 5-10 mL an hour. she is noted to be in respiratory acidosis with a pH of 7.09 this morning and pCO2 of 71. she is currently on a BiPAP. abdominal ultrasound could not rule out distal CBD obstruction. was also concern of cholecystitis. No evidence of hydronephrosis was noted. Kidneys were normal in size. she was taking Lasix outpatient which is currently held. I don't see any nonsteroidals and her home medications. Denies family history of renal disease. No history of diabetes. Vital signs are stable. General: The patient appeared well nourished and normally developed. on BiPAP. HEENT: Head exam is unremarkable. Neck is without jugular venous distension. LUNGS: Breath sounds decreased. HEART: Rate and Rhythm are regular. ABDOMEN: soft, nontender. EXTREMITITES: No edema. Past Medical History Past Medical History: Heart Failure, CVA/TIA, Hypertension, Osteoarthritis (OA), Syncope Additional Past Medical History / Comment(s): chronic back pain- has morphine pain pump implanted right abdomen., uses cane/walker prn., hx cva (pt did not know), syncope with hx of falls- states several concusions, fx spine 2018 MRI of the lumbar spine that was done in 2018 showed degenerative disc disease, facet arthropathy, spondylolisthesis, L1 endplate compression fracture without any significant spinal stenosis and the patient had a indwelling stimulator lead. , states swelling lower extremities., gastritis, having" burning in stomach, gas and change in stools", usually eat once daily. , states she broke 4 toes last week. History of Any Multi-Drug Resistant Organisms: None Reported Past Surgical History: Back Surgery Additional Past Surgical History / Comment(s): laproscopic surgery (for miscarriage), back injections Past Anesthesia/Blood Transfusion Reactions: No Reported Reaction Past Psychological History: Anxiety, Bipolar, Depression Smoking Status: Current some day smoker Past Alcohol Use History: None Reported Additional Past Alcohol Use History / Comment(s): smokes 1 1/2 ppd, smoking on and off since she was 24 yrs old. Past Drug Use History: None Reported - Past Family History Father Family Medical History: Cancer, Diabetes Mellitus Mother Family Medical History: Cancer Brother(s) Family Medical History: Cancer Additional Family Medical History / Comment(s): agent orange Medications and Allergies Home Medications Medication Instructions Recorded Confirmed Type HYDROcodone/APAP 10-325MG [[place] 1 tab PO TID PRN 02/12/17 03/28/20 History 10-325] Atorvastatin Calcium [Lipitor] 20 mg PO DAILY 09/02/18 03/28/20 History Ergocalciferol (Vitamin D2) 50,000 unit PO [place] 09/02/18 03/28/20 History [Drisdol] hydrOXYzine HCL [Atarax] 10 mg PO TID PRN #12 tab 11/15/18 03/28/20 Rx Cyanocobalamin (Vitamin B-12) 1,000 mcg PO DAILY 05/27/19 03/28/20 History [Vitamin B-12] Gabapentin [Neurontin] 300 mg PO TID 05/27/19 03/28/20 History Irbesartan [Avapro] 75 mg PO BID 05/27/19 03/28/20 History Morphine/Bupivacaine Pump 0 ml .ROUTE CONTINUOUS 05/27/19 03/28/20 History QUEtiapine [SEROquel] 100 mg PO HS 05/27/19 03/28/20 History Sucralfate [Carafate] 2 gm PO BID 05/27/19 03/28/20 History ALPRAZolam [Xanax] 0.5 mg PO TID PRN 03/28/20 03/28/20 History Furosemide [Lasix] 40 mg PO DAILY 03/28/20 03/28/20 History Potassium Chloride ER [K-Dur 10] 10 meq PO DAILY 03/28/20 03/28/20 History Vilazodone HCl [Viibryd] 10 mg PO DAILY 03/28/20 03/28/20 History rOPINIRole HCL [Requip] 1 mg PO HS 03/28/20 03/28/20 History Allergies Allergy/AdvReac Type Severity Reaction Status Date / Time Sulfa (Sulfonamide Allergy Severe Rash/Hives, Verified 03/28/20 14:32 Antibiotics) N & V, IRREGULAR HEART BEAT. aspirin Allergy IRREGULAR Verified 03/28/20 14:32 HEART BEAT, N & V, HIVES Penicillins Allergy Unknown Verified 03/28/20 14:32 Physical Exam Vitals: Vital Signs Temp Pulse Resp BP Pulse Ox 03/29/20 09:00 15 03/29/20 07:00 97 12 104/61 95 03/29/20 06:30 96 10 L 106/60 94 L 03/29/20 06:00 99 11 L 96/62 93 L 03/29/20 05:30 101 H 13 99/63 95 03/29/20 05:00 97 13 97/63 93 L 03/29/20 04:30 99 13 96/65 95 03/29/20 04:00 97.9 F 98 13 103/65 93 L 03/29/20 03:30 98 12 100/60 92 L 03/29/20 03:00 98 13 101/60 92 L 03/29/20 02:30 99 12 93/63 91 L 03/29/20 02:00 98 12 98/66 91 L 03/29/20 01:30 98 12 104/67 90 L 03/29/20 01:00 101 H 12 108/66 92 L 03/29/20 00:30 99 14 117/73 91 L 03/29/20 00:05 98 03/29/20 00:00 98 F 100 15 114/69 95 03/28/20 23:55 100 03/28/20 23:30 98 14 107/71 93 L 03/28/20 23:03 96 15 89 L 03/28/20 23:00 98 20 123/76 90 L 03/28/20 22:30 96 12 124/73 91 L 03/28/20 22:00 97 14 104/73 91 L 03/28/20 21:52 12 03/28/20 21:30 96 14 116/71 88 L 03/28/20 21:00 98 12 111/68 89 L 03/28/20 20:30 96 12 116/66 88 L 03/28/20 20:00 92 14 105/82 89 L 03/28/20 19:30 93 10 L 101/53 90 L 03/28/20 19:00 87 17 81/71 84 L 03/28/20 18:45 88 18 93/62 89 L 03/28/20 18:30 86 10 L 83/56 96 03/28/20 18:15 88 10 L 61/44 95 03/28/20 18:00 87 25 H 87/66 97 03/28/20 17:54 8 L 03/28/20 17:45 97.1 F L 85 10 L 90/60 82 L 03/28/20 17:23 10 L 03/28/20 16:49 10 L 03/28/20 15:03 100 18 102/65 94 L 03/28/20 14:28 99 16 106/86 94 L 03/28/20 11:23 14 03/28/20 11:21 12 03/28/20 11:11 100 F H 103 H 22 84/55 95 Intake and Output 03/28/20 03/29/20 03/29/20 22:59 06:59 14:59 Intake Total 2305 1169.875 197.575 Output Total 260 47 5 Balance 2045 1122.875 192.575 Intake: IV 920 985 130 Calcium Gluconate 1 gm In 100 Sodium Chloride 0.9% 100 ml @ 100 mls/hr IVPB ONCE ONE Rx#:[id number] Naloxone (Mdv) 2 mg In 300 75 Sodium Chloride 0.9% 250 ml @ 0.6 MG/HR 76.5 mls/ hr IV .Q3H20M [facility] Rx#: [id number] Sodium Chloride 0.9% 1, 520 910 130 000 ml @ 130 mls/hr IV . Q7H42M [facility] Rx#:[id number] Intake, IV Titration 1385 184.875 67.575 Amount Naloxone (Mdv) 2 mg In 255 184.875 67.575 Sodium Chloride 0.9% 250 ml @ 0.6 MG/HR 76.5 mls/ hr IV .Q3H20M [facility] Rx#: [id number] Sodium Chloride 0.9% 1, 130 000 ml @ 130 mls/hr IV . Q7H42M [facility] Rx#:[id number] Sodium Chloride 0.9% 1, 1000 000 ml @ 999 mls/hr IV . Q1H1M [facility] Rx#:[id number] Output: Urine 260 47 5 Other: Voiding Method Indwelling Catheter Indwelling Catheter # Bowel Movements 1 1 Weight 99.79 kg 100.1 kg Results - Lab Results Most recent lab results ABG pH 7.09 (7.35-7.45) L* 03/29/20 07:49 ABG pCO2 71 mmHg (35-45) H* 03/29/20 07:49 ABG pO2 73 mmHg (83-108) L 03/29/20 07:49 ABG HCO3 22 mmol/L (21-25) 03/29/20 07:49 ABG O2 Saturation 92.4 % (94-97) L 03/29/20 07:49 Calcium 7.5 mg/dL (8.4-10.2) L 03/29/20 03:43 Magnesium 2.3 mg/dL (1.6-2.3) 03/28/20 11:18 03/29/20 03:43 03/29/20 03:43 Assessment and Plan Plan: assessment: 1. Oliguric acute kidney injury secondary to ATN secondary to severe sepsis/hypotension. creatinine was 4.12 on admission and is 3.65 today. No evidence of hydronephrosis noted on ultrasound. 2. Acute hypercapnic respiratory failure maintained on BiPAP. 3. Hyperkalemia secondary to acute kidney injury, arb, and potassium supplementation. Better with medical management. 4. Severe sepsis maintained on antibiotics. Cultures pending. 5. Transaminitis likely from hypoperfusion. Hepatitis panel negative. acetaminophen level not high. Plan: Maintain normal saline. Lasix 80 mg IV once today. Follow-up cultures. Avoid nephrotoxins. Follow-up echocardiogram. Repeat BMP at 4 PM today. monitor vancomycin levels. Dose to be adjusted for renal function. If no improvement in renal function and urine output in the next 24-48 hours, will initiate renal replacement therapy. Thank you for the consultation. I will continue to follow the patient with you during her hospital stay.
[2020-03-29 09:17] LABS: ABG Base Excess -9.1 mmol/L; ABG HCO3 19 mmol/L (21-25); ABG Oxygen Saturation 96.9 % (94-97); ABG PCO2 50 mmHg (35-45); ABG PO2 90 mmHg (83-108); ABG TCO2 21 mmol/L (19-24); Allen Test Performed? Yes
[2020-03-29 09:20] LABS: ABG PH 7.19 (7.35-7.45)
--- NOTE | 2020-03-29 10:06 | P.PN ---
Subjective HISTORY OF PRESENTING ILLNESS This is a pleasant 64-year-old female past medical history significant for hypertension, dyslipidemia, chronic pain status post pain pump insertion. She follows in the office with Dr. Merritt. She is seen and examined sitting up in bed on BiPAP. She is communicating appropriately. She denies any signifi cant chest pain, shortness of breath, dizziness or palpitations. Blood pressure 104/61 heart rate 97 afebrile maintaining oxygen saturations on BiPAP. Laboratory data reviewed, WBC 22.9, hemoglobin 13.3, platelets 193, pH 7.19, CO2 50, sodium 140, potassium 5.4, creatinine 3.65. Currently maintained on IV antibiotics and Narcan infusion. Chest x-ray this morning revealed a left lower lobe infiltrate, no overt heart failure noted. PHYSICAL EXAMINATION CONSTITUTIONAL: No apparent distress. HEENT: Head is normocephalic. Pupils are equal, round. Sclerae anicteric. Mucous membranes of the mouth are moist. No JVD. No carotid bruit. CHEST EXAMINATION: Lungs are clear to auscultation. No chest wall tenderness is noted on palpation or with deep breathing. HEART EXAMINATION: Regular rate and rhythm. S1, S2 heard. No murmurs, gallops or rub. EXTREMITIES: 2+ peripheral pulses, no lower extremity edema and no calf tenderness. ASSESSMENT Febrile illness Leukocytosis Hyperkalemia Acute kidney injury Hypercapnic respiratory failure Transaminitis Mild troponin leak secondary to acute kidney injury Hypertension Dyslipidemia Chronic nicotine dependence PLAN Echocardiogram reviewed at the bedside, no significant wall motion abnormalities with normal LV size and function. Ongoing medical management. Continue to hold irbesartan secondary to acute kidney injury. We will follow along as needed, follow-up with Dr. Merritt upon discharge. Nurse Practitioner note has been reviewed, I agree with a documented findings and plan of care. Patient was seen and examined. Objective - Vital Signs Vital signs: Vital Signs Temp 97.9 F 03/29/20 04:00 Pulse 97 03/29/20 07:00 Resp 15 03/29/20 09:00 BP 104/61 03/29/20 07:00 Pulse Ox 95 03/29/20 07:00 Intake & Output 03/28/20 03/29/20 03/29/20 18:59 06:59 18:59 Intake Total 1000 2474.875 197.575 Output Total 200 107 5 Balance 800 2367.875 192.575 Weight 99.79 kg 100.1 kg Intake: IV 1905 130 Calcium Gluconate 1 gm In 100 Sodium Chloride 0.9% 100 ml @ 100 mls/hr IVPB ONCE ONE Rx#:[id number] Naloxone (Mdv) 2 mg In 375 Sodium Chloride 0.9% 250 ml @ 0.6 MG/HR 76.5 mls/ hr IV .Q3H20M [facility] Rx#: [id number] Sodium Chloride 0.9% 1, 1430 130 000 ml @ 130 mls/hr IV . Q7H42M [facility] Rx#:[id number] Intake, IV Titration 1000 569.875 67.575 Amount Naloxone (Mdv) 2 mg In 439.875 67.575 Sodium Chloride 0.9% 250 ml @ 0.6 MG/HR 76.5 mls/ hr IV .Q3H20M [facility] Rx#: [id number] Sodium Chloride 0.9% 1, 130 000 ml @ 130 mls/hr IV . Q7H42M [facility] Rx#:[id number] Sodium Chloride 0.9% 1, 1000 000 ml @ 999 mls/hr IV . Q1H1M [facility] Rx#:[id number] Output: Urine 200 107 5 Other: Voiding Method Indwelling Catheter # Bowel Movements 1 1 - Labs CBC & Chem 7: 03/29/20 03:43 03/29/20 03:43 Labs: Abnormal Lab Results - Last 24 Hours (Table) 03/28/20 03/28/20 03/28/20 Range/Units 11:15 11:18 11:18 WBC 21.8 H (3.8-10.6) k/uL MCV (80.0-100.0) fL MCHC 30.1 L (31.0-37.0) g/dL Neutrophils # (1.3-7.7) k/uL Neutrophils # (Manual) 19.40 H (1.3-7.7) k/uL Lymphocytes # (1.0-4.8) k/uL Lymphocytes # (Manual) 0.87 L (1.0-4.8) k/uL Monocytes # (Manual) 1.53 H (0-1.0) k/uL PT 12.8 H (9.0-12.0) sec INR 1.3 H (<1.2) ABG pH (7.35-7.45) ABG pCO2 (35-45) mmHg ABG pO2 (83-108) mmHg ABG HCO3 (21-25) mmol/L ABG Total CO2 (19-24) mmol/L ABG O2 Saturation (94-97) % Sodium (137-145) mmol/L Potassium 5.9 H (3.5-5.1) mmol/L Chloride (98-107) mmol/L Carbon Dioxide (22-30) mmol/L BUN (7-17) mg/dL Creatinine (0.52-1.04) mg/dL Glucose (74-99) mg/dL Plasma Lactic Acid Kaushal (0.7-2.0) mmol/L Calcium (8.4-10.2) mg/dL AST (14-36) U/L ALT (4-34) U/L Troponin I (0.000-0.034) ng/mL C-Reactive Protein (<10.0) mg/L Total Protein (6.3-8.2) g/dL Albumin (3.5-5.0) g/dL Urine Protein (Negative) Urine Glucose (UA) (Negative) Urine Blood (Negative) Urine Mucus (None) /hpf 03/28/20 03/28/20 03/28/20 Range/Units 11:18 11:18 11:18 WBC (3.8-10.6) k/uL MCV (80.0-100.0) fL MCHC (31.0-37.0) g/dL Neutrophils # (1.3-7.7) k/uL Neutrophils # (Manual) (1.3-7.7) k/uL Lymphocytes # (1.0-4.8) k/uL Lymphocytes # (Manual) (1.0-4.8) k/uL Monocytes # (Manual) (0-1.0) k/uL PT (9.0-12.0) sec INR (<1.2) ABG pH (7.35-7.45) ABG pCO2 (35-45) mmHg ABG pO2 (83-108) mmHg ABG HCO3 (21-25) mmol/L ABG Total CO2 (19-24) mmol/L ABG O2 Saturation (94-97) % Sodium 133 L (137-145) mmol/L Potassium 6.4 H* (3.5-5.1) mmol/L Chloride (98-107) mmol/L Carbon Dioxide (22-30) mmol/L BUN 29 H (7-17) mg/dL Creatinine 4.12 H (0.52-1.04) mg/dL Glucose (74-99) mg/dL Plasma Lactic Acid Kaushal 3.2 H* (0.7-2.0) mmol/L Calcium 7.6 L (8.4-10.2) mg/dL AST 1741 H (14-36) U/L ALT 1788 H (4-34) U/L Troponin I 0.911 H* (0.000-0.034) ng/mL C-Reactive Protein (<10.0) mg/L Total Protein 6.2 L (6.3-8.2) g/dL Albumin (3.5-5.0) g/dL Urine Protein (Negative) Urine Glucose (UA) (Negative) Urine Blood (Negative) Urine Mucus (None) /hpf 03/28/20 03/28/20 03/28/20 Range/Units 13:55 14:24 16:37 WBC (3.8-10.6) k/uL MCV (80.0-100.0) fL MCHC (31.0-37.0) g/dL Neutrophils # (1.3-7.7) k/uL Neutrophils # (Manual) (1.3-7.7) k/uL Lymphocytes # (1.0-4.8) k/uL Lymphocytes # (Manual) (1.0-4.8) k/uL Monocytes # (Manual) (0-1.0) k/uL PT (9.0-12.0) sec INR (<1.2) ABG pH 6.98 L* (7.35-7.45) ABG pCO2 98 H* (35-45) mmHg ABG pO2 (83-108) mmHg ABG HCO3 (21-25) mmol/L ABG Total CO2 26 H (19-24) mmol/L ABG O2 Saturation (94-97) % Sodium (137-145) mmol/L Potassium (3.5-5.1) mmol/L Chloride (98-107) mmol/L Carbon Dioxide (22-30) mmol/L BUN (7-17) mg/dL Creatinine (0.52-1.04) mg/dL Glucose (74-99) mg/dL Plasma Lactic Acid K[place]hal 3.0 H* (0.7-2.0) mmol/L Calcium (8.4-10.2) mg/dL AST (14-36) U/L ALT (4-34) U/L Troponin I (0.000-0.034) ng/mL C-Reactive Protein (<10.0) mg/L Total Protein (6.3-8.2) g/dL Albumin (3.5-5.0) g/dL Urine Protein 1+ H (Negative) Urine Glucose (UA) 1+ H (Negative) Urine Blood Small H (Negative) Urine Mucus Rare H (None) /hpf 03/28/20 03/28/20 03/28/20 Range/Units 17:47 17:47 23:56 WBC 24.0 H (3.8-10.6) k/uL MCV 100.2 H (80.0-100.0) fL MCHC 29.0 L (31.0-37.0) g/dL Neutrophils # (1.3-7.7) k/uL Neutrophils # (Manual) (1.3-7.7) k/uL Lymphocytes # (1.0-4.8) k/uL Lymphocytes # (Manual) (1.0-4.8) k/uL Monocytes # (Manual) (0-1.0) k/uL PT (9.0-12.0) sec INR (<1.2) ABG pH (7.35-7.45) ABG pCO2 (35-45) mmHg ABG pO2 (83-108) mmHg ABG HCO3 (21-25) mmol/L ABG Total CO2 (19-24) mmol/L ABG O2 Saturation (94-97) % Sodium 136 L (137-145) mmol/L Potassium 6.6 H* 5.4 H (3.5-5.1) mmol/L Chloride (98-107) mmol/L Carbon Dioxide 21 L (22-30) mmol/L BUN 31 H (7-17) mg/dL Creatinine 3.75 H (0.52-1.04) mg/dL Glucose 107 H (74-99) mg/dL Plasma Lactic Acid Kaushal (0.7-2.0) mmol/L Calcium 7.7 L (8.4-10.2) mg/dL AST 5702 H (14-36) U/L ALT 4690 H (4-34) U/L Troponin I (0.000-0.034) ng/mL C-Reactive Protein (<10.0) mg/L Total Protein 5.6 L (6.3-8.2) g/dL Albumin 3.1 L (3.5-5.0) g/dL Urine Protein (Negative) Urine Glucose (UA) (Negative) Urine Blood (Negative) Urine Mucus (None) /hpf 03/29/20 03/29/20 03/29/20 Range/Units 03:43 03:43 07:49 WBC 22.9 H (3.8-10.6) k/uL MCV 100.2 H (80.0-100.0) fL MCHC 30.1 L (31.0-37.0) g/dL Neutrophils # 20.9 H (1.3-7.7) k/uL Neutrophils # (Manual) (1.3-7.7) k/uL Lymphocytes # 0.9 L (1.0-4.8) k/uL Lymphocytes # (Manual) (1.0-4.8) k/uL Monocytes # (Manual) (0-1.0) k/uL PT (9.0-12.0) sec INR (<1.2) ABG pH 7.09 L* (7.35-7.45) ABG pCO2 71 H* (35-45) mmHg ABG pO2 73 L (83-108) mmHg ABG HCO3 (21-25) mmol/L ABG Total CO2 (19-24) mmol/L ABG O2 Saturation 92.4 L (94-97) % Sodium (137-145) mmol/L Potassium 5.4 H (3.5-5.1) mmol/L Chloride 108 H (98-107) mmol/L Carbon Dioxide 21 L (22-30) mmol/L BUN 36 H (7-17) mg/dL Creatinine 3.65 H (0.52-1.04) mg/dL Glucose (74-99) mg/dL Plasma Lactic Acid Kaushal (0.7-2.0) mmol/L Calcium 7.5 L (8.4-10.2) mg/dL AST 8371 H (14-36) U/L ALT 7454 H (4-34) U/L Troponin I (0.000-0.034) ng/mL C-Reactive Protein 90.0 H (<10.0) mg/L Total Protein 5.6 L (6.3-8.2) g/dL Albumin 3.0 L (3.5-5.0) g/dL Urine Protein (Negative) Urine Glucose (UA) (Negative) Urine Blood (Negative) Urine Mucus (None) /hpf 03/29/20 Range/Units 09:06 WBC (3.8-10.6) k/uL MCV (80.0-100.0) fL MCHC (31.0-37.0) g/dL Neutrophils # (1.3-7.7) k/uL Neutrophils # (Manual) (1.3-7.7) k/uL Lymphocytes # (1.0-4.8) k/uL Lymphocytes # (Manual) (1.0-4.8) k/uL Monocytes # (Manual) (0-1.0) k/uL PT (9.0-12.0) sec INR (<1.2) ABG pH 7.19 L* (7.35-7.45) ABG pCO2 50 H (35-45) mmHg ABG pO2 (83-108) mmHg ABG HCO3 19 L (21-25) mmol/L ABG Total CO2 (19-24) mmol/L ABG O2 Saturation (94-97) % Sodium (137-145) mmol/L Potassium (3.5-5.1) mmol/L Chloride (98-107) mmol/L Carbon Dioxide (22-30) mmol/L BUN (7-17) mg/dL Creatinine (0.52-1.04) mg/dL Glucose (74-99) mg/dL Plasma Lactic Acid Kaushal (0.7-2.0) mmol/L Calcium (8.4-10.2) mg/dL AST (14-36) U/L ALT (4-34) U/L Troponin I (0.000-0.034) ng/mL C-Reactive Protein (<10.0) mg/L Total Protein (6.3-8.2) g/dL Albumin (3.5-5.0) g/dL Urine Protein (Negative) Urine Glucose (UA) (Negative) Urine Blood (Negative) Urine Mucus (None) /hpf
[2020-03-29] MEDS ORDERED: FUROSEMIDE 10 MG/ML 10 ML VIAL IV STA (10:53)
[2020-03-29] MEDS: NICOTINE 21MG/24HR PATCH TRANSDERM SCH (11:05)
[2020-03-29 11:26] LABS: Hepatitis A Antibody IgM Non-Reactive (Non-Reactive)
--- NOTE | 2020-03-29 13:00 | ECHOF ---
Referral Reason:htn MEASUREMENTS -------- HEIGHT: 170.2 cm WEIGHT: 99.8 kg BP: RVIDd: 3.1 cm (< 3.3) IVSd: 1.1 cm (0.6 - 1.1) LVIDd: 4.4 cm (3.9 - 5.3) LVPWd: 1.3 cm (0.6 - 1.1) IVSs: 1.3 cm LVIDs: 3.3 cm LVPWs: 1.4 cm LA Diam: 3.5 cm (2.7 - 3.8) Ao Diam: 3.4 cm (2.0 - 3.7) AV Cusp: 1.9 cm (1.5 - 2.6) MV EXCURSION: 15.965 mm (> 18.000) MV EF SLOPE: 59 mm/s (70 - 150) EPSS: 0.3 cm RAP: 5.00 mmHg RVSP: 44.35 mmHg FINDINGS -------- Sinus rhythm. This was a techncally difficult study with suboptimal views, , Lumason utilized for enhancement of im ages. LV size, wall thickness and systolic function are normal, with an EF greater than 55%. The left lorene tricular size is normal. The right ventricle is normal in size. The left atrial size is normal. The right atrial size is normal. 5.0mg OF Lumason UTLIZED: 2 OR MORE WALL SEGMENTS NOT VISUALIZED. The aortic valve is trileaflet, and appears structurally normal. No aortic stenosis or regurgitation. Mild mitral regurgitation is present. Mild tricuspid regurgitation present. There is mild pulmonary hypertension. There is no pulmonic regurgitation present. The aortic root size is normal. There is no pericardial effusion. CONCLUSIONS -------- 1. This was a techncally difficult study with suboptimal views, , Lumason utilized for enhancement of images. 2. LV size, wall thickness and systolic function are normal, with an EF greater than 55%. 3. The left ventricular size is normal. 4. The right ventricle is normal in size. 5. The left atrial size is normal. 6. The right atrial size is normal. 7. 5.0mg OF Lumason UTLIZED: 2 OR MORE WALL SEGMENTS NOT VISUALIZED. 8. Mild mitral regurgitation is present. 9. Mild tricuspid regurgitation present. 10. There is mild pulmonary hypertension. 11. There is no pericardial effusion. TELEPHONE AD TAKER: Jen Ontiveros RDCS
--- NOTE | 2020-03-29 13:33 | P.PN ---
Subjective Progress Note Date: 03/29/20 64-year-old female patient presented to the ED for shortness of breath and difficulty breathing. The patient has chronic pain maintained on a morphine pump on outpatient basis and she hasn't followed up with Dr. Roberts on outpatient basis. Apparently the pain pump was replaced few days back. She is also on a combination of Xanax, gabapentin a [place] in addition to Seroquel. . The patient also has history of hypertension, previous history of CVA, hyperlipidemia, acid reflux and smoking Note that the patient came in for shortness of breath. She denied having any chest pain or palpitation. She denies having any nausea vomiting or abdominal pain. She denied having any headache. No new injury or trauma. No new areas of pain. Note that her initial white cell count was 21.8 and subsequent white cell count was 24.0. The patient had a normal platelet count and a normal hemoglobin of 13.8. Coagulation profile was within normal limits. Nevertheless, the patient was found to be in acute kidney injury. The patient's creatinine was up to 4.12 with a BUN of 29 and the patient's potassium was at 6.4 with a sodium level of 133. Anion gap was only a 10. The lactic acid level was at 3.2 with a calcium level of 7.6. She had an acute hepatocellular injury with a AST of 1741 that subsequently came up to 10/29/2001. She also had a ALT of 1788 and subsequently came at 4690. Troponin was at 0.9. Total protein was 6.2. UA showed +1 protein and +1 glucose. The chest x-ray done in the ED showed no acute cardiopulmonary process. CAT scan of the brain showed no acute process and CAT scan of the abdomen and pelvis done showed a small right-sided pleural effusion and some mild compressive atelectasis of the right lung base. Minimal amount of free fluid in the pelvis. Otherwise negative. EKG was in normal sinus rhythm and there were no acute EKG changes related to hyperkalemia. There is some low voltage EKG and T-wave abnormalities throughout. Note that the patient was treated for the hyperkalemia. The patient was given calcium gluconate and the patient was also given D50 insulin combination and bicarb pushes. The patient was having a low-grade fever of 100.0. The patient was given empiric antibiotic coverage and the patient was covered with a combination of Rocephin and vancomycin. Currently on IV fluids at the rate of 130 mL an hour. The patient was initially admitted to the medical floor and following that the patient was found to be apneic and altered mentally. She was given Narcan. She got transferred to the intensive care unit. She was given IV fluid boluses. The patient started on BiPAP after the blood gases showed an acute hypercapnic respiratory failure. The blood gases was done that showed a pH of 6.98 with a pCO2 of 98 and pO2 of 90 and this was on FiO2 of 40%. the patient is currently on a BiPAP and she is on a Narcan drip at 0.6 mg/hour. On today's evaluation of 03/29/2020, the patient is still lethargic. The patient was taken off the Narcan drip at around midnight and the patient was BiPAP. Nevertheless, the Patient Was Still Hypoventilating. I Repeated the Blood Gases This Morning and Showed a pH of 7.09 with a PCO2 of 71 and PO2 of 73. Based on That, I Restarted the Narcan Drip. I Contacted the Anesthesiologist to Evaluate the Pain Pump. Apparently the Patient Was Taken Total of 7.9 Mg of Morphine through the pump and we did a dose reduction down to 7.0 mg and according to the pain specialist, Dr. Lacy this could've affected the patient's breathing causing significant hypoventilation. The patient was kept on a BiPAP accordingly. The patient was switched to a BiPAP level of 16/5 cm of water and FiO2 28%. A repeat blood gas showed a pH of 7.19 with a pCO2 of 50 and pO2 of 90. The patient was much more alert and awake yet BiPAP dependent. IV fluids in the form of normal saline at the rate of 130 mL an hour. Cardiac rhythm is sinus. Further workup has been ordered including an ultrasound the kidneys and the liver and addition to a urine drug screen. An additional 1 bolus of fluid will be given to the patient today. Tylenol levels have been less than 10. Objective - Vital Signs Vital signs: Vital Signs Temp 97.8 F 03/29/20 08:00 Pulse 95 03/29/20 12:00 Resp 11 L 03/29/20 12:41 BP 116/63 03/29/20 12:00 Pulse Ox 92 L 03/29/20 12:00 Intake & Output 03/28/20 03/29/20 03/29/20 18:59 06:59 18:59 Intake Total 1000 2474.875 2102.575 Output Total 200 107 30 Balance 800 2367.875 2072.575 Weight 99.79 kg 100.1 kg Intake: IV 1905 1780 Calcium Gluconate 1 gm In 100 Sodium Chloride 0.9% 100 ml @ 100 mls/hr IVPB ONCE ONE Rx#:[id number] Naloxone (Mdv) 2 mg In 375 Sodium Chloride 0.9% 250 ml @ 0.6 MG/HR 76.5 mls/ hr IV .Q3H20M [facility] Rx#: [id number] Sodium Chloride 0.9% 1, 1430 780 000 ml @ 130 mls/hr IV . Q7H42M [facility] Rx#:[id number] Sodium Chloride 0.9% 1, 1000 000 ml @ 999 mls/hr IV . Q1H1M [facility] Rx#:[id number] Intake, IV Titration 1000 569.875 322.575 Amount Naloxone (Mdv) 2 mg In 439.875 322.575 Sodium Chloride 0.9% 250 ml @ 0.6 MG/HR 76.5 mls/ hr IV .Q3H20M [facility] Rx#: [id number] Sodium Chloride 0.9% 1, 130 000 ml @ 130 mls/hr IV . Q7H42M [facility] Rx#:[id number] Sodium Chloride 0.9% 1, 1000 000 ml @ 999 mls/hr IV . Q1H1M [facility] Rx#:[id number] Output: Urine 200 107 30 Other: Voiding Method Indwelling Catheter Indwelling Catheter # Bowel Movements 1 1 - Exam Gen. appearance the patient is quite lethargic and sleepy yet arousable. Cardiovascular BiPAP at a pressure of 16/5 cm of water. Head exam was generally normal. There was no scleral icterus or corneal arcus. Mucous membranes were moist. Neck was supple and without jugular venous distension, thyromegaly, or carotid bruits. Carotids were easily palpable bilaterally. There was no adenopathy. Lungs sounds are diminished bilaterally otherwise clear. There is no wheezes or rhonchi or any crackles. Cardiac exam revealed the PMI to be normally situated and sized. The rhythm was regular and no extrasystoles were noted during several minutes of auscultation. The first and second heart sounds were normal and physiologic splitting of the second heart sound was noted. There were no murmurs, rubs, clicks, or gallops. Abdominal exam revealed normal bowel sounds. The abdomen was soft, non-tender, and without masses, organomegaly, or appreciable enlargement of the abdominal aorta. The incision over the right abdominal wall is dry clean and intact and there is no active drainage at this point in time. Tisha are all in place. Examination of the extremities revealed easily palpable radial, femoral and pedal pulses. There was no cyanosis, clubbing or edema. Examination of the skin revealed no evidence of significant rashes, suspicious appearing nevi or other concerning lesions. Neurologically the patient is arousable. Quite lethargic at this point in time. She is moving all 4 extremities upon stimulation painful stimuli. No focal neurological deficit at this point in time. - Labs CBC & Chem 7: 03/29/20 03:43 03/29/20 03:43 Labs: Abnormal Lab Results - Last 24 Hours (Table) 03/28/20 03/28/20 03/28/20 Range/Units 13:55 14:24 16:37 WBC (3.8-10.6) k/uL MCV (80.0-100.0) fL MCHC (31.0-37.0) g/dL Neutrophils # (1.3-7.7) k/uL Lymphocytes # (1.0-4.8) k/uL ABG pH 6.98 L* (7.35-7.45) ABG pCO2 98 H* (35-45) mmHg ABG pO2 (83-108) mmHg ABG HCO3 (21-25) mmol/L ABG Total CO2 26 H (19-24) mmol/L ABG O2 Saturation (94-97) % Sodium (137-145) mmol/L Potassium (3.5-5.1) mmol/L Chloride (98-107) mmol/L Carbon Dioxide (22-30) mmol/L BUN (7-17) mg/dL Creatinine (0.52-1.04) mg/dL Glucose (74-99) mg/dL Plasma Lactic Acid K[place] 3.0 H* (0.7-2.0) mmol/L Calcium (8.4-10.2) mg/dL AST (14-36) U/L ALT (4-34) U/L C-Reactive Protein (<10.0) mg/L Total Protein (6.3-8.2) g/dL Albumin (3.5-5.0) g/dL Urine Protein 1+ H (Negative) Urine Glucose (UA) 1+ H (Negative) Urine Blood Small H (Negative) Urine Mucus Rare H (None) /hpf 03/28/20 03/28/20 03/28/20 Range/Units 17:47 17:47 23:56 WBC 24.0 H (3.8-10.6) k/uL MCV 100.2 H (80.0-100.0) fL MCHC 29.0 L (31.0-37.0) g/dL Neutrophils # (1.3-7.7) k/uL Lymphocytes # (1.0-4.8) k/uL ABG pH (7.35-7.45) ABG pCO2 (35-45) mmHg ABG pO2 (83-108) mmHg ABG HCO3 (21-25) mmol/L ABG Total CO2 (19-24) mmol/L ABG O2 Saturation (94-97) % Sodium 136 L (137-145) mmol/L Potassium 6.6 H* 5.4 H (3.5-5.1) mmol/L Chloride (98-107) mmol/L Carbon Dioxide 21 L (22-30) mmol/L BUN 31 H (7-17) mg/dL Creatinine 3.75 H (0.52-1.04) mg/dL Glucose 107 H (74-99) mg/dL Plasma Lactic Acid [place] (0.7-2.0) mmol/L Calcium 7.7 L (8.4-10.2) mg/dL AST 5702 H (14-36) U/L ALT 4690 H (4-34) U/L C-Reactive Protein (<10.0) mg/L Total Protein 5.6 L (6.3-8.2) g/dL Albumin 3.1 L (3.5-5.0) g/dL Urine Protein (Negative) Urine Glucose (UA) (Negative) Urine Blood (Negative) Urine Mucus (None) /hpf 03/29/20 03/29/20 03/29/20 Range/Units 03:43 03:43 07:49 WBC 22.9 H (3.8-10.6) k/uL MCV 100.2 H (80.0-100.0) fL MCHC 30.1 L (31.0-37.0) g/dL Neutrophils # 20.9 H (1.3-7.7) k/uL Lymphocytes # 0.9 L (1.0-4.8) k/uL ABG pH 7.09 L* (7.35-7.45) ABG pCO2 71 H* (35-45) mmHg ABG pO2 73 L (83-108) mmHg ABG HCO3 (21-25) mmol/L ABG Total CO2 (19-24) mmol/L ABG O2 Saturation 92.4 L (94-97) % Sodium (137-145) mmol/L Potassium 5.4 H (3.5-5.1) mmol/L Chloride 108 H (98-107) mmol/L Carbon Dioxide 21 L (22-30) mmol/L BUN 36 H (7-17) mg/dL Creatinine 3.65 H (0.52-1.04) mg/dL Glucose (74-99) mg/dL Plasma Lactic Acid [place] (0.7-2.0) mmol/L Calcium 7.5 L (8.4-10.2) mg/dL AST 8371 H (14-36) U/L ALT 7454 H (4-34) U/L C-Reactive Protein 90.0 H (<10.0) mg/L Total Protein 5.6 L (6.3-8.2) g/dL Albumin 3.0 L (3.5-5.0) g/dL Urine Protein (Negative) Urine Glucose (UA) (Negative) Urine Blood (Negative) Urine Mucus (None) /hpf 03/29/20 Range/Units 09:06 WBC (3.8-10.6) k/uL MCV (80.0-100.0) fL MCHC (31.0-37.0) g/dL Neutrophils # (1.3-7.7) k/uL Lymphocytes # (1.0-4.8) k/uL ABG pH 7.19 L* (7.35-7.45) ABG pCO2 50 H (35-45) mmHg ABG pO2 (83-108) mmHg ABG HCO3 19 L (21-25) mmol/L ABG Total CO2 (19-24) mmol/L ABG O2 Saturation (94-97) % Sodium (137-145) mmol/L Potassium (3.5-5.1) mmol/L Chloride (98-107) mmol/L Carbon Dioxide (22-30) mmol/L BUN (7-17) mg/dL Creatinine (0.52-1.04) mg/dL Glucose (74-99) mg/dL Plasma Lactic Acid [place] (0.7-2.0) mmol/L Calcium (8.4-10.2) mg/dL AST (14-36) U/L ALT (4-34) U/L C-Reactive Protein (<10.0) mg/L Total Protein (6.3-8.2) g/dL Albumin (3.5-5.0) g/dL Urine Protein (Negative) Urine Glucose (UA) (Negative) Urine Blood (Negative) Urine Mucus (None) /hpf Assessment and Plan Plan: 1 acute hypercapnic respiratory failu, CO2 narcosis , Likely secondary to narcotic overdose probably related to decreased dosage of the morphine through the pain pump. The patient has a normal Tylenol level and this essentially rules out the possibility of a no cor overdose. The patient is currently on a BiPAP for respiratory support at a pressure of 12/5 and the patient was also started on Narcan drip. Note that after the Narcan drip has been discontinued, the patient developed again hypercapnic respiratory failure, acute and based on that the Narcan drip was restarted and the patient was placed on a pressure of 16/5 cm of water. Meanwhile, pain services were consulted and the dosage of the morphine through the pain pump has been reduced to her original dose. 2 acute kidney injury, improving and the creatinine is down to 3.65 3 acute hyperkalemia, improved and the potassium level is down to 5.4 4 mild lactic acidosis, improved 5 acute shock liver, normal coagulation profile 6 chronic pain and the patient has a morphine pain pump in place 7 previous history of CVA without any major neurologic deficits 8 hypertension 9 previous history of syncope 10 chronic back pain with previous history of back surgery in addition to degenerative spine disease in addition to spondylolisthesis and compression fracture 11 smoker 12 hypertension 13 hyperlipidemia 14 acid reflux 15 acute febrile illness, and the patient is currently on empiric antibiotic coverage with a combination of Rocephin and vancomycin. No clear source of infection at this point in time. Plan Condition is critical. Continue BiPAP for respiratory support in the necessary changes were done Continue Narcan drip for another 24 hours Reduction in the infusions with a morphine pump was done Monitor fever pattern Continue same antibiotic coverage Ultrasound the kidneys ultrasound of the bladder Avoid nephrotoxic agents and monitor renal function Repeat ABGs in the morning and meanwhile keep on utilizing the BiPAP for acute hypercapnic respiratory failure We'll continue to follow make further recommendations based on her progress. The patient is critically ill. This evaluation was done and morning 30 minutes. Time with Patient: Greater than 30
[2020-03-29] MEDS ORDERED: VANCOMYCIN 1,500 MG in SODIUM CHLORIDE 0.9% 250 ML IVPB ONE (14:00)
--- NOTE | 2020-03-29 14:39 | P.PAINCN ---
History of Present Illness - Reason for Consult Consult date: 03/29/20 - History of Present Illness This is 64 years old female, was admitted to [facility] secondary to acute hypercapnic respiratory failure, patient had intrathecal pain pump replaced last week, and patient was getting intrathecal morphine daily dose of 7 mg per day (intrathecal ) post operative the intrathecal morphine was increased to 7.9, and later on patient developed, very drowsy and she developed respiratory failure, patient was started on Narcan drip, and patient was very drowsy, the patient was interviewed at 7:00 in the morning, and I interrogated the intrathecal pain pump, showed patient currently had intrathecal morphine concentration is 25 mg per mL and patient receiving a daily dose of morphine 7.9 mg per day, and patient had residual volume of 9.7 mL, and because of poor patient condition I decreased the dose to her original dose to 6.99 mg per day of intrathecal morphine which is equal to 11% decrease in the daily dose, later on patient was examined and she was more awake she is alert oriented 3 Past Medical History Past Medical History: Heart Failure, CVA/TIA, Hypertension, Osteoarthritis (OA), Syncope Additional Past Medical History / Comment(s): chronic back pain- has morphine pain pump implanted right abdomen., uses cane/walker prn., hx cva (pt did not know), syncope with hx of falls- states several concusions, fx spine 2018 MRI of the lumbar spine that was done in 2018 showed degenerative disc disease, facet arthropathy, spondylolisthesis, L1 endplate compression fracture without any significant spinal stenosis and the patient had a indwelling stimulator lead. , states swelling lower extremities., gastritis, having" burning in stomach, gas and change in stools", usually eat once daily. , states she broke 4 toes last week. History of Any Multi-Drug Resistant Organisms: None Reported Past Surgical History: Back Surgery Additional Past Surgical History / Comment(s): laproscopic surgery (for miscarriage), back injections Past Anesthesia/Blood Transfusion Reactions: No Reported Reaction Past Psychological History: Anxiety, Bipolar, Depression Smoking Status: Current some day smoker Past Alcohol Use History: None Reported Additional Past Alcohol Use History / Comment(s): smokes 1 1/2 ppd, smoking on and off since she was 24 yrs old. Past Drug Use History: None Reported - Past Family History Father Family Medical History: Cancer, Diabetes Mellitus Mother Family Medical History: Cancer Brother(s) Family Medical History: Cancer Additional Family Medical History / Comment(s): agent orange Medications and Allergies Home Medications Medication Instructions Recorded Confirmed Type HYDROcodone/APAP 10-325MG [[place] 1 tab PO TID PRN 02/12/17 03/28/20 History 10-325] Atorvastatin Calcium [Lipitor] 20 mg PO DAILY 09/02/18 03/28/20 History Ergocalciferol (Vitamin D2) 50,000 unit PO STEVENSON 09/02/18 03/28/20 History [Drisdol] hydrOXYzine HCL [Atarax] 10 mg PO TID PRN #12 tab 11/15/18 03/28/20 Rx Cyanocobalamin (Vitamin B-12) 1,000 mcg PO DAILY 05/27/19 03/28/20 History [Vitamin B-12] Gabapentin [Neurontin] 300 mg PO TID 05/27/19 03/28/20 History Irbesartan [Avapro] 75 mg PO BID 05/27/19 03/28/20 History Morphine/Bupivacaine Pump 0 ml .ROUTE CONTINUOUS 05/27/19 03/28/20 History QUEtiapine [SEROquel] 100 mg PO HS 05/27/19 03/28/20 History Sucralfate [Carafate] 2 gm PO BID 05/27/19 03/28/20 History ALPRAZolam [Xanax] 0.5 mg PO TID PRN 03/28/20 03/28/20 History Furosemide [Lasix] 40 mg PO DAILY 03/28/20 03/28/20 History Potassium Chloride ER [K-Dur 10] 10 meq PO DAILY 03/28/20 03/28/20 History Vilazodone HCl [Viibryd] 10 mg PO DAILY 03/28/20 03/28/20 History rOPINIRole HCL [Requip] 1 mg PO HS 03/28/20 03/28/20 History Allergies Allergy/AdvReac Type Severity Reaction Status Date / Time Sulfa (Sulfonamide Allergy Severe Rash/Hives, Verified 03/28/20 14:32 Antibiotics) N & V, IRREGULAR HEART BEAT. aspirin Allergy IRREGULAR Verified 03/28/20 14:32 HEART BEAT, N & V, HIVES Penicillins Allergy Unknown Verified 03/28/20 14:32 Physical Exam Vitals: Vital Signs Temp Pulse Resp BP Pulse Ox 03/29/20 14:00 98 13 122/52 93 L 03/29/20 13:00 95 21 116/62 96 03/29/20 12:41 11 L 03/29/20 12:15 10 L 03/29/20 12:00 97.1 F L 95 10 L 116/63 92 L 03/29/20 11:38 94 03/29/20 11:30 98 11 L 112/66 98 03/29/20 11:29 98 03/29/20 11:00 97 12 115/68 97 03/29/20 10:30 97 19 111/66 99 03/29/20 10:00 96 18 111/69 98 03/29/20 09:30 94 18 112/67 96 03/29/20 09:00 97 16 109/67 99 03/29/20 08:30 96 15 106/65 98 03/29/20 08:15 11 L 03/29/20 08:00 97.8 F 98 10 L 101/67 93 L 03/29/20 07:30 98 10 L 109/62 94 L 03/29/20 07:00 97 12 104/61 95 03/29/20 06:30 96 10 L 106/60 94 L 03/29/20 06:00 99 11 L 96/62 93 L 03/29/20 05:30 101 H 13 99/63 95 03/29/20 05:00 97 13 97/63 93 L 03/29/20 04:30 99 13 96/65 95 03/29/20 04:00 97.9 F 98 13 103/65 93 L 03/29/20 03:30 98 12 100/60 92 L 03/29/20 03:00 98 13 101/60 92 L 03/29/20 02:30 99 12 93/63 91 L 03/29/20 02:00 98 12 98/66 91 L 03/29/20 01:30 98 12 104/67 90 L 03/29/20 01:00 101 H 12 108/66 92 L 03/29/20 00:30 99 14 117/73 91 L 03/29/20 00:05 98 03/29/20 00:00 98 F 100 15 114/69 95 03/28/20 23:55 100 03/28/20 23:30 98 14 107/71 93 L 03/28/20 23:03 96 15 89 L 03/28/20 23:00 98 20 123/76 90 L 03/28/20 22:30 96 12 124/73 91 L 03/28/20 22:00 97 14 104/73 91 L 03/28/20 21:52 12 03/28/20 21:30 96 14 116/71 88 L 03/28/20 21:00 98 12 111/68 89 L 03/28/20 20:30 96 12 116/66 88 L 03/28/20 20:00 92 14 105/82 89 L 03/28/20 19:30 93 10 L 101/53 90 L 03/28/20 19:00 87 17 81/71 84 L 03/28/20 18:45 88 18 93/62 89 L 03/28/20 18:30 86 10 L 83/56 96 03/28/20 18:15 88 10 L 61/44 95 03/28/20 18:00 87 25 H 87/66 97 03/28/20 17:54 8 L 03/28/20 17:45 97.1 F L 85 10 L 90/60 82 L 03/28/20 17:23 10 L 03/28/20 16:49 10 L 03/28/20 15:03 100 18 102/65 94 L Intake and Output 03/28/20 03/29/20 03/29/20 22:59 06:59 14:59 Intake Total 2305 7745.147 4110.575 Output Total 260 47 40 Balance 2045 4048.769 1607.575 Intake: IV 461 093 7910 Calcium Gluconate 1 gm In 100 Sodium Chloride 0.9% 100 ml @ 100 mls/hr IVPB ONCE ONE Rx#:[id number] Naloxone (Mdv) 2 mg In 300 75 Sodium Chloride 0.9% 250 ml @ 0.6 MG/HR 76.5 mls/ hr IV .Q3H20M [facility] Rx#: [id number] Sodium Chloride 0.9% 1, 050 439 3469 000 ml @ 130 mls/hr IV . Q7H42M [facility] Rx#:[id number] Sodium Chloride 0.9% 1, 1000 000 ml @ 999 mls/hr IV . Q1H1M [facility] Rx#:[id number] Intake, IV Titration 1385 184.875 322.575 Amount Naloxone (Mdv) 2 mg In 255 184.875 322.575 Sodium Chloride 0.9% 250 ml @ 0.6 MG/HR 76.5 mls/ hr IV .Q3H20M [facility] Rx#: [id number] Sodium Chloride 0.9% 1, 130 000 ml @ 130 mls/hr IV . Q7H42M [facility] Rx#:[id number] Sodium Chloride 0.9% 1, 1000 000 ml @ 999 mls/hr IV . Q1H1M [facility] Rx#:[id number] Output: Urine 260 47 40 Other: Voiding Method Indwelling Catheter Indwelling Catheter Indwelling Catheter # Bowel Movements 1 1 1 Weight 99.79 kg 100.1 kg Gen. appearance the patient is quite lethargic and sleepy yet arousable. Cardiovascular BiPAP at a pressure of 16/5 cm of water. Head exam was generally normal. There was no scleral icterus or corneal arcus. Mucous membranes were moist. Neck was supple and without jugular venous distension, thyromegaly, or carotid bruits. Carotids were easily palpable bilaterally. There was no adenopathy. Lungs sounds are diminished bilaterally otherwise clear. There is no wheezes or rhonchi or any crackles. Cardiac exam revealed the PMI to be normally situated and sized. The rhythm was regular and no extrasystoles were noted during several minutes of auscultation. The first and second heart sounds were normal and physiologic splitting of the second heart sound was noted. There were no murmurs, rubs, clicks, or gallops. Abdominal exam revealed normal bowel sounds. The abdomen was soft, non-tender, and without masses, organomegaly, or appreciable enlargement of the abdominal aorta. The incision over the right abdominal wall is dry clean and intact and there is no active drainage at this point in time. Tisha are all in place. Examination of the extremities revealed easily palpable radial, femoral and pedal pulses. There was no cyanosis, clubbing or edema. Examination of the skin revealed no evidence of significant rashes, suspicious appearing nevi or other concerning lesions. Neurologically the patient is arousable. Quite lethargic at this point in time. She is moving all 4 extremities upon stimulation painful stimuli. No focal neurological deficit at this point in time. Results CBC & Chem 7: 03/29/20 03:43 03/29/20 03:43 Labs: Abnormal Lab Results - Last 24 Hours (Table) 03/28/20 03/28/20 03/28/20 Range/Units 14:24 16:37 17:47 WBC 24.0 H (3.8-10.6) k/uL MCV 100.2 H (80.0-100.0) fL MCHC 29.0 L (31.0-37.0) g/dL Neutrophils # (1.3-7.7) k/uL Lymphocytes # (1.0-4.8) k/uL ABG pH 6.98 L* (7.35-7.45) ABG pCO2 98 H* (35-45) mmHg ABG pO2 (83-108) mmHg ABG HCO3 (21-25) mmol/L ABG Total CO2 26 H (19-24) mmol/L ABG O2 Saturation (94-97) % Sodium (137-145) mmol/L Potassium (3.5-5.1) mmol/L Chloride (98-107) mmol/L Carbon Dioxide (22-30) mmol/L BUN (7-17) mg/dL Creatinine (0.52-1.04) mg/dL Glucose (74-99) mg/dL Plasma Lactic Acid Kaushal 3.0 H* (0.7-2.0) mmol/L Calcium (8.4-10.2) mg/dL AST (14-36) U/L ALT (4-34) U/L C-Reactive Protein (<10.0) mg/L Total Protein (6.3-8.2) g/dL Albumin (3.5-5.0) g/dL 03/28/20 03/28/20 03/29/20 Range/Units 17:47 23:56 03:43 WBC 22.9 H (3.8-10.6) k/uL MCV 100.2 H (80.0-100.0) fL MCHC 30.1 L (31.0-37.0) g/dL Neutrophils # 20.9 H (1.3-7.7) k/uL Lymphocytes # 0.9 L (1.0-4.8) k/uL ABG pH (7.35-7.45) ABG pCO2 (35-45) mmHg ABG pO2 (83-108) mmHg ABG HCO3 (21-25) mmol/L ABG Total CO2 (19-24) mmol/L ABG O2 Saturation (94-97) % Sodium 136 L (137-145) mmol/L Potassium 6.6 H* 5.4 H (3.5-5.1) mmol/L Chloride (98-107) mmol/L Carbon Dioxide 21 L (22-30) mmol/L BUN 31 H (7-17) mg/dL Creatinine 3.75 H (0.52-1.04) mg/dL Glucose 107 H (74-99) mg/dL Plasma Lactic Acid Kaushal (0.7-2.0) mmol/L Calcium 7.7 L (8.4-10.2) mg/dL AST 5702 H (14-36) U/L ALT 4690 H (4-34) U/L C-Reactive Protein (<10.0) mg/L Total Protein 5.6 L (6.3-8.2) g/dL Albumin 3.1 L (3.5-5.0) g/dL 03/29/20 03/29/20 03/29/20 Range/Units 03:43 07:49 09:06 WBC (3.8-10.6) k/uL MCV (80.0-100.0) fL MCHC (31.0-37.0) g/dL Neutrophils # (1.3-7.7) k/uL Lymphocytes # (1.0-4.8) k/uL ABG pH 7.09 L* 7.19 L* (7.35-7.45) ABG pCO2 71 H* 50 H (35-45) mmHg ABG pO2 73 L (83-108) mmHg ABG HCO3 19 L (21-25) mmol/L ABG Total CO2 (19-24) mmol/L ABG O2 Saturation 92.4 L (94-97) % Sodium (137-145) mmol/L Potassium 5.4 H (3.5-5.1) mmol/L Chloride 108 H (98-107) mmol/L Carbon Dioxide 21 L (22-30) mmol/L BUN 36 H (7-17) mg/dL Creatinine 3.65 H (0.52-1.04) mg/dL Glucose (74-99) mg/dL Plasma Lactic Acid Kaushal (0.7-2.0) mmol/L Calcium 7.5 L (8.4-10.2) mg/dL AST 8371 H (14-36) U/L ALT 7454 H (4-34) U/L C-Reactive Protein 90.0 H (<10.0) mg/L Total Protein 5.6 L (6.3-8.2) g/dL Albumin 3.0 L (3.5-5.0) g/dL Microbiology - Last 24 Hours (Table) 03/28/20 12:09 Blood Culture - Preliminary Blood No Growth after 24 hours Assessment and Plan Plan: 1 acute hypercapnic respiratory failure, Likely secondary to narcotic overdose Shoulder was started on Narcan drip, and I decreased the intrathecal pump dose from 7.5 mg per day to 7 mg per day (original dose ) patient will be on 7 mg dose for several years, and she was tolerating it very well 2 acute kidney injury, improving and the creatinine is down to 3.65 3 acute hyperkalemia, improved and the potassium level is down to 5.4 4 mild lactic acidosis, improved 5 acute shock liver, normal coagulation profile 6 chronic pain and the patient has a morphine pain pump in place Patient was seen 7 AM in the morning Time with Patient: Less than 30 PQRS Measure Charge Sheet PQRS Narrative: Smoking Status Heavy tobacco smoker Do You Want the Pneumonia No Vaccine AT THIS TIME? Blood Pressure 122/52 Pain Intensity [Head] 5 Pain Intensity [None] 0 Pain Intensity 0 Pain Scale Used Non Verbal Pain Indicator Scale Used Numeric (1 - 10) Home Medications: Ambulatory Orders HYDROcodone/APAP 10-325MG [[place] 10-325] 1 tab PO TID PRN 02/12/17 Atorvastatin Calcium [Lipitor] 20 mg PO DAILY 09/02/18 Ergocalciferol (Vitamin D2) [Drisdol] 50,000 unit PO STEVENSON 09/02/18 hydrOXYzine HCL [Atarax] 10 mg PO TID PRN #12 tab 11/15/18 Cyanocobalamin (Vitamin B-12) [Vitamin B-12] 1,000 mcg PO DAILY 05/27/19 Gabapentin [Neurontin] 300 mg PO TID 05/27/19 Irbesartan [Avapro] 75 mg PO BID 05/27/19 Morphine/Bupivacaine Pump 0 ml .ROUTE CONTINUOUS 05/27/19 QUEtiapine [SEROquel] 100 mg PO HS 05/27/19 Sucralfate [Carafate] 2 gm PO BID 05/27/19 ALPRAZolam [Xanax] 0.5 mg PO TID PRN 03/28/20 Furosemide [Lasix] 40 mg PO DAILY 03/28/20 Potassium Chloride ER [K-Dur 10] 10 meq PO DAILY 03/28/20 Vilazodone HCl [Viibryd] 10 mg PO DAILY 03/28/20 rOPINIRole HCL [Requip] 1 mg PO HS 03/28/20
[2020-03-29 15:46] LABS: ABG Base Excess -11.4 mmol/L; ABG HCO3 17 mmol/L (21-25); ABG Oxygen Saturation 96.4 % (94-97); ABG PCO2 49 mmHg (35-45); ABG PO2 89 mmHg (83-108); ABG TCO2 19 mmol/L (19-24); Allen Test Performed? Yes
[2020-03-29 15:51] LABS: ABG PH 7.16 (7.35-7.45)
[2020-03-29] MEDS ORDERED: DIPHENOX-ATROP 2.5-0.025 MG 1 EACH TAB PO PRN (15:55)
[2020-03-29] MEDS ORDERED: SODIUM BICARB 8.4% 50 ML SYR (1 MEQ/ML) IV STA ×2 (15:57→15:58)
[2020-03-29] MEDS ORDERED: DEXTROSE 5% IN WATER 1,000 ML with SODIUM BICARB (1 MEQ/ML) 150 ML IV SCH (16:00)
[2020-03-29 16:48] LABS: Potassium 4.7 mmol/L (3.5-5.1)
[2020-03-29 16:58] LABS: Calcium 6.3 mg/dL (8.4-10.2)
[2020-03-29 17:07] LABS: ABG Base Excess -7.5 mmol/L; ABG HCO3 21 mmol/L (21-25); ABG Oxygen Saturation 95.6 % (94-97); ABG PCO2 54 mmHg (35-45); ABG PO2 83 mmHg (83-108); ABG TCO2 22 mmol/L (19-24); Allen Test Performed? Yes
[2020-03-29 17:08] LABS: ABG PH 7.19 (7.35-7.45)
[2020-03-29] MEDS ORDERED: CALCIUM GLUCONATE 1 GM in SODIUM CHLORIDE 0.9% 100 ML IVPB ONE (18:00)
[2020-03-29] MEDS: HEPARIN SODIUM,PORCINE 5,000 UNIT/ML 1 ML VIAL SQ SCH (21:08)
--- NOTE | 2020-03-29 21:43 | P.PN ---
Progress Note - Text Progress Note Date: 03/29/20 Chief Complaint: Difficulty breathing Hospital course: Patient is 64-year-old female, was family doctor is Dr. pam Baker. Chronic stable medical conditions include chronic pain currently on a morphine pump , hypertension, CHF, and prior stroke who presented to the emergency department . Per the ER report patient is having difficulty breathing. Daughter called and found the same. Patient had a pain pump replaced 3 days ago. She follows with Dr. Hutton for pain pump. 3 days also she states she started having a fever. She has long-standing smoker. Baseline cough. No increased shortness of breath. Did receive some Narcan in the ER as she was a bit lethargic. When she got to the floor she again became lethargic blood gases sitting up pH of 6.88. It seemed to be a mixed respiratory and metabolic acidosis. Patient was therefore moved to the ICU with the orders for BiPAP. When I came to the ICU patient was using a BiPAP and was able to answer questions. She had a temperature of 100 the ER. On the floor she dropped respiratory rate also. She is put on a Narcan drip. Patient admitted with-metabolic encephalopathy likely from pain medications, acute hypoxic and hypercapnic respiratory failure from medications, acute kidney injury, acute ischemic hepatitis, septic shock, mixed metabolic and respiratory acidosis. Admitted ICU. Patient is put on a BiPAP. IV fluids. Levo fed. Bicarbonate. I spoke to Dr. Hernandez to from neurology last night. Patient had his pain pump relocated from the spine to the anterior abdominal wound. It is intrathecal. Dose of morphine was not changed. Patient also was placed on Narcan drip. To which she responded well Today-swished over from BiPAP to nasal cannula. Oral intake started. Less short of breath. More awake. Review of systems: Was done for constitutional, cardiovascular, GI, pulmonary. relevant finding as above Active Medications Albuterol/Ipratropium (Ipratropium-Albuterol 3 Ml Neb) 3 ml INHALATION RT-Q2H PRN PRN Reason: Shortness Of Breath Or Wheezing Albuterol/Ipratropium (Ipratropium-Albuterol 3 Ml Neb) 3 ml INHALATION RT-Q4H KALLIE Last Admin: 03/29/20 18:51 Dose: 3 ml Documented by: Diphenoxylate HCl/Atropine (Diphenox-Atrop 2.5-0.025 Mg 1 Each Tab) 1 each PO Q6HR PRN PRN Reason: Diarrhea Last Admin: 03/29/20 16:26 Dose: 1 each Documented by: Heparin Sodium (Porcine) (Heparin Sodium,Porcine 5,000 Unit/Ml 1 Ml Vial) 5,000 unit SQ Q12HR KALLIE Last Admin: 03/29/20 21:08 Dose: 5,000 unit Documented by: Sodium Chloride (Saline 0.9%) 1,000 mls @ 100 mls/hr IV .Q10H KALLIE Last Admin: 03/29/20 21:08 Dose: 100 mls/hr Documented by: Ceftriaxone Sodium 1 gm/ (Sodium Chloride) 50 mls @ 100 mls/hr IVPB Q24HR KALLIE Last Admin: 03/29/20 11:04 Dose: 100 mls/hr Documented by: Naloxone HCl 2 mg/ Sodium (Chloride) 255 mls @ 76.5 mls/hr IV .Q3H20M KALLIE; Protocol Last Admin: 03/29/20 21:09 Dose: Not Given Documented by: Norepinephrine Bitartrate 4 mg (/ Sodium Chloride) 254 mls @ 19.01 mls/hr IV .[id number] [facility]; Protocol Last Admin: 03/29/20 21:09 Dose: Not Given Documented by: Miscellaneous Information (Vancomycin Iv Per Pharmacy 1 Each [facility] [place]) 1 each MISCELLANE DIRECTED PRN; Protocol PRN Reason: Per Protocol Naloxone HCl (Naloxone 0.4 Mg/Ml 1 Ml Vial) 0.2 mg IVP Q2M PRN PRN Reason: Opioid Reversal Last Admin: 03/28/20 17:23 Dose: 0.2 mg Documented by: Nicotine (Nicotine 21mg/24hr Patch) 1 patch TRANSDERM DAILY [facility] Last Admin: 03/29/20 11:05 Dose: 1 patch Documented by: Physical examination: VITAL SIGNS: 97.6, 98, 19, 132/73, 92% on 2 L GENERAL: Propped up in bed, tired, nasal cannula, answering questions EYES: Pupils equal. Conjunctiva normal. HEENT: External appearance of nose and ears normal, oral cavity grossly normal. NECK: JVD unable to assess; masses not palpable. HEART: First and second heart sounds are normal; no edema. LUNGS: Respiratory rate increased, diminished breath sounds prolonged expiration. ABDOMEN: Soft, nontender, liver spleen not palpable, no masses palpable. Right abdominal incision site healing well with the underlying pain pump PSYCH: More awake answering questions. NEUROLOGICAL: Cranial nerves grossly intact; no facial asymmetry, power and sensation grossly intact. INVESTIGATIONS, reviewed in the clinical context: White count 22.9 hemoglobin 13.3 platelets 193 potassium 5.4 bun 36 creatinine 3.65 bicarb 21, AST 8371, ALT 7454 Admission testing White count 21.8 hemoglobin 13.6 increased neutrophils potassium 6.4 bun 29 creatinine 4.12 Lactic acid 3.2 troponin I 0.911 AST 1741, ALT 1788 Hepatitis B surface antigen, core IgM antibody, hepatitis C IgG antibody all nonreactive ABG-pH 6.98, pCO2 98, bicarb 23 acetaminophen level less than 10 UA-negative for nitrate and leukoesterase EKG tracing personally reviewed by me-normal sinus rhythm some T-wave changes Computed tomography scan of the abdomen and pelvis-nonspecific Computed tomography scan of the brain-unremarkable Chest x-ray film personally reviewed by me-no obvious infiltrate, some elevations right diaphragm C. difficile-negative COVID 19 PCR not detected Hepatitis A IgM antibody nonreactive Previous testing: renal function is normal in December 2018 Assessment: -Acute metabolic encephalopathy. In the setting of acute renal failure patients on Neurontin [place]on Seroquel Xanax Requip and viibryd. Has been put on a Narcan drip-improvement -Chronic pain syndrome with a morphine pain pump that for change from the spine to the anterior abdominal wall 3 days prior to admission being followed by Dr. bedolla, but no change in morphine dose -Obesity BMI 34.5 -Severe ischemic hepatitis from hypotension-worsening -Acute kidney injury likely combination of prerenal and ATN-slow to respond -Septic shock and blood pressure dropping down to the 70s systolic. -Chronic L1 compression fracture -Acute hypoxic and hypercapnic respiratory failure responding to BiPAP-improving -Mixed metabolic and respiratory acidosis -Chronic nicotine dependence, patient is a cigarette smoker -Acute COPD exacerbation in a current smoker -Low-grade fever and infection site unknown Plan: Patient on nasal cannula, IV ceftriaxone, to receive vancomycin, Levothroid, normal saline. Follow I's and O's closely. Remains critical. Diet started. Start the patient on a smaller dose of Neurontin. Follow electrolytes closely.
[2020-03-29 22:02] LABS: ABG Base Excess -8.7 mmol/L; ABG HCO3 19 mmol/L (21-25); ABG Oxygen Saturation 97.6 % (94-97); ABG PCO2 50 mmHg (35-45); ABG PO2 99 mmHg (83-108); ABG TCO2 21 mmol/L (19-24); Allen Test Performed? Yes
[2020-03-29] MEDS: GABAPENTIN 300 MG CAP PO SCH (23:16)
--- NOTE | 2020-03-29 23:57 | PN ---
PROGRESS NOTE DATE OF SERVICE: 03/29/2020 REASON FOR FOLLOWUP: Leukocytosis, possible abdominal source. INTERVAL HISTORY: The patient is currently afebrile. The patient is more awake and alert today. She is breathing comfortably. Denies having any chest pain, cough. No abdominal discomfort. Nausea but no vomiting. Patient did have multiple loose stools today. PHYSICAL EXAMINATION: Blood pressure 121/62 with a pulse of 98, temperature is 97.6. She is 100% on 2 L nasal cannula. General description is middle-aged female lying in bed in no distress. RESPIRATORY SYSTEM: Unlabored breathing, decreased breath sounds at the bases. No wheeze. HEART: S1, S2. Regular rate and rhythm. ABDOMEN: Soft. Mild tenderness. No guarding or rigidity. EXTREMITIES: No edema of feet. LABS: Hemoglobin 13.3, white count 22.9, BUN of 49, creatinine 3.99. The patient did have an ultrasound of the abdomen with question of cholecystitis. DIAGNOSTIC IMPRESSION AND PLAN: 1. Patient admitted to the hospital with low-grade fever, decreased and elevated white count with concern for possible abscess, possible abdominal source with abnormal ultrasound. The patient would benefit from surgery evaluation. To continue with Rocephin. Clinical suspicion for a gram-positive infection. Vancomycin discontinued because of high risk of nephrotoxicity and borderline kidney function. 2. Diarrhea. Culture for Clostridium difficile positive. MMODL / IJN: [id number] /
[2020-03-30 03:10] LABS: Urine Alcohol Negative (Negative); Urine Barbiturate Negative (Negative); Urine Cocaine Negative (Negative); Urine Methadone Negative (Negative); Urine Opiates Positive (Negative); Urine Phencyclidine Negative (Negative)
[2020-03-30] MEDS: IPRATROPIUM-ALBUTEROL 3 ML NEB INHALATION SCH ×6 (03:43→23:20)
[2020-03-30 04:25] LABS: Basophils # (A) 0.1 k/uL (0-0.2); Basophils % (A) 0 %; Eosinophils # (A) 0.1 k/uL (0-0.7); Eosinophils % (A) 1 %; HCT 42.1 % (34.0-46.0); HGB 12.6 gm/dL (11.4-16.0); Hypochromasia Marked; Lymphocytes # (A) 0.8 k/uL (1.0-4.8); Lymphocytes % (A) 4 %; MCH 30.9 pg (25.0-35.0); MCHC 30.1 g/dL (31.0-37.0); MCV 102.9 fL (80.0-100.0); Macrocytosis Slight; Monocytes # (A) 0.6 k/uL (0-1.0); Monocytes % (A) 3 %; Neutrophils # (A) 17.5 k/uL (1.3-7.7); Neutrophils % (A) 91 %; Platelet Count 120 k/uL (150-450); RBC 4.09 m/uL (3.80-5.40); RDW 14.6 % (11.5-15.5); WBC 19.2 k/uL (3.8-10.6)
[2020-03-30 04:34] LABS: Calcium 7.1 mg/dL (8.4-10.2)
[2020-03-30 04:36] LABS: Potassium 4.8 mmol/L (3.5-5.1)
[2020-03-30 04:39] LABS: Vancomycin,Random 22.4 ug/mL
[2020-03-30 04:55] LABS: Hepatitis B Surface AB- Quant 3.5 mIU/mL; Hepatitis B Surface Antibody Non-Reactive (Non-Reactive); Hepatitis B Surface Antigen Non-Reactive (Non-Reactive)
[2020-03-30] MEDS: NALOXONE (MDV) 2 MG in SODIUM CHLORIDE 0.9% 250 ML IV SCH ×6 (05:34→16:56)
[2020-03-30] MEDS: SODIUM CHLORIDE 0.9% 1,000 ML IV SCH ×2 (06:17→17:08)
--- NOTE | 2020-03-30 06:23 | XR ---
EXAMINATION TYPE: XR chest 1V DATE OF EXAM: 03/30/2020 CLINICAL HISTORY: Difficulty breathing progress study. TECHNIQUE: Single AP portable semiupright view of the chest is obtained. COMPARISON: Chest x-ray from one day earlier and older studies. CTA chest March 11, 2018 FINDINGS: There are persistent tiny bilateral pleural effusions and patchy left basilar opacity. Car diac silhouette size is mildly enlarged with central vascular congestion. Diminished inspiration rede monstrated. Osseous structures are intact. IMPRESSION: Diminished inspiration. Mild cardiomegaly with central vascular congestion and tiny bilat eral pleural effusions, correlate for CHF exacerbation. Patchy left basilar acute atelectasis and/or infiltrate. No significant change from one day earlier.
[2020-03-30 08:34] LABS: ABG Base Excess -9.6 mmol/L; ABG HCO3 18 mmol/L (21-25); ABG PCO2 46 mmHg (35-45); ABG PH 7.21 (7.35-7.45); ABG PO2 92 mmHg (83-108); ABG TCO2 20 mmol/L (19-24); Allen Test Performed? Yes
--- NOTE | 2020-03-30 09:04 | XR ---
EXAMINATION TYPE: XR chest 1V portable DATE OF EXAM: 03/30/2020 COMPARISON: 03/30/2020 INDICATION: Line placement TECHNIQUE: Single frontal view of the chest is obtained. FINDINGS: The heart size is upper limits of normal. The pulmonary vasculature is normal. Some mild left lower lobe infiltrate is at the diaphragm. There is poor visualization left costophren ic angle. Left central venous catheter is been placed with the tip in proximal right atrium. IMPRESSION: 1. No pneumothorax post line placement, tip is in the proximal right atrium. 2. Mild left lower lobe infiltrate.
[2020-03-30 09:19] LABS: Alkaline Phosphatase 93 U/L (38-126)
[2020-03-30 09:25] LABS: INR 1.2 (<1.2); Prothrombin Time 11.8 sec (9.0-12.0)
[2020-03-30 09:39] LABS: AST 1794 U/L (14-36)
--- NOTE | 2020-03-30 09:41 | P.PN ---
Subjective Patient is seen in follow-up for acute kidney injury and hyperkalemia. Creatinine today is up to 4.8. Urine output about 5-10 mL an hour. Not req uiring vasopressors. Potassium level normal. Remains on BiPAP. Vital signs are stable. General: The patient appeared well nourished and normally developed. HEENT: Head exam is unremarkable. Neck is without jugular venous distension. On BiPAP. LUNGS: Breath sounds decreased. HEART: Rate and Rhythm are regular. First and second heart sounds normal. No murmurs, rubs or gallops. ABDOMEN: Soft, nontender. EXTREMITITES: No clubbing, cyanosis, or edema. Objective - Vital Signs Vital signs: Vital Signs Temp 98.4 F 03/30/20 04:00 Pulse 96 03/30/20 07:44 Resp 13 03/30/20 07:00 BP 120/68 03/30/20 07:00 Pulse Ox 96 03/30/20 07:00 Intake & Output 03/29/20 03/30/20 03/30/20 18:59 06:59 18:59 Intake Total 3499.925 1200 100 Output Total 66 52 3 Balance 3433.925 1148 97 Weight 104.1 kg Intake: IV 2730 1200 100 Dextrose 5% in Water 1, 50 000 ml @ 100 mls/hr IV . [id number] KALLIE with Sodium Bicarb (1 Meq/ml) 150 ml Rx#:[id number] Sodium Chloride 0.9% 1, 1430 1200 100 000 ml @ 100 mls/hr IV . Q10H KALLIE Rx#:[id number] Sodium Chloride 0.9% 1, 1000 000 ml @ 999 mls/hr IV . Q1H1M ONE Rx#:[id number] Vancomycin 1,500 mg In 250 Sodium Chloride 0.9% 250 ml @ 125 mls/hr IVPB ONCE ONE Rx#:[id number] Intake, IV Titration 569.925 Amount Naloxone (Mdv) 2 mg In 569.925 Sodium Chloride 0.9% 250 ml @ 0.6 MG/HR 76.5 mls/ hr IV .Q3H20M KALLIE Rx#: [id number] Oral 200 Output: Urine 66 52 3 Other: Voiding Method Indwelling Catheter Indwelling Catheter # Bowel Movements 1 1 - Labs CBC & Chem 7: 03/30/20 03:27 03/30/20 03:27 Labs: Abnormal Lab Results - Last 24 Hours (Table) 03/29/20 03/29/20 03/29/20 Range/Units 12:10 15:37 16:22 WBC (3.8-10.6) k/uL MCV (80.0-100.0) fL MCHC (31.0-37.0) g/dL Plt Count (150-450) k/uL Neutrophils # (1.3-7.7) k/uL Lymphocytes # (1.0-4.8) k/uL INR (<1.2) ABG pH 7.16 L* (7.35-7.45) ABG pCO2 49 H (35-45) mmHg ABG HCO3 17 L (21-25) mmol/L ABG O2 Saturation (94-97) % Sodium 146 H (137-145) mmol/L Chloride 112 H (98-107) mmol/L Carbon Dioxide 31 H (22-30) mmol/L BUN 49 H (7-17) mg/dL Creatinine 3.99 H (0.52-1.04) mg/dL Glucose 114 H (74-99) mg/dL Calcium 6.3 L* (8.4-10.2) mg/dL Ammonia (<30) umol/L Urine Opiates Screen Positive H (Negative) ng/mL U Benzodiazepines Scrn Positive H (Negative) ng/mL 03/29/20 03/29/20 03/30/20 Range/Units 17:05 21:58 03:27 WBC (3.8-10.6) k/uL MCV (80.0-100.0) fL MCHC (31.0-37.0) g/dL Plt Count (150-450) k/uL Neutrophils # (1.3-7.7) k/uL Lymphocytes # (1.0-4.8) k/uL INR (<1.2) ABG pH 7.19 L* 7.20 L (7.35-7.45) ABG pCO2 54 H 50 H (35-45) mmHg ABG HCO3 19 L (21-25) mmol/L ABG O2 Saturation 97.6 H (94-97) % Sodium (137-145) mmol/L Chloride 112 H (98-107) mmol/L Carbon Dioxide 17 L (22-30) mmol/L BUN 53 H (7-17) mg/dL Creatinine 4.80 H (0.52-1.04) mg/dL Glucose (74-99) mg/dL Calcium 7.1 L (8.4-10.2) mg/dL Ammonia (<30) umol/L Urine Opiates Screen (Negative) ng/mL U Benzodiazepines Scrn (Negative) ng/mL 03/30/20 03/30/20 03/30/20 Range/Units 03:27 08:34 08:40 WBC 19.2 H (3.8-10.6) k/uL MCV 102.9 H (80.0-100.0) fL MCHC 30.1 L (31.0-37.0) g/dL Plt Count 120 L (150-450) k/uL Neutrophils # 17.5 H (1.3-7.7) k/uL Lymphocytes # 0.8 L (1.0-4.8) k/uL INR (<1.2) ABG pH 7.21 L (7.35-7.45) ABG pCO2 46 H (35-45) mmHg ABG HCO3 18 L (21-25) mmol/L ABG O2 Saturation (94-97) % Sodium (137-145) mmol/L Chloride (98-107) mmol/L Carbon Dioxide (22-30) mmol/L BUN (7-17) mg/dL Creatinine (0.52-1.04) mg/dL Glucose (74-99) mg/dL Calcium (8.4-10.2) mg/dL Ammonia 54 H (<30) umol/L Urine Opiates Screen (Negative) ng/mL U Benzodiazepines Scrn (Negative) ng/mL 03/30/20 Range/Units 08:40 WBC (3.8-10.6) k/uL MCV (80.0-100.0) fL MCHC (31.0-37.0) g/dL Plt Count (150-450) k/uL Neutrophils # (1.3-7.7) k/uL Lymphocytes # (1.0-4.8) k/uL INR 1.2 H (<1.2) ABG pH (7.35-7.45) ABG pCO2 (35-45) mmHg ABG HCO3 (21-25) mmol/L ABG O2 Saturation (94-97) % Sodium (137-145) mmol/L Chloride (98-107) mmol/L Carbon Dioxide (22-30) mmol/L BUN (7-17) mg/dL Creatinine (0.52-1.04) mg/dL Glucose (74-99) mg/dL Calcium (8.4-10.2) mg/dL Ammonia (<30) umol/L Urine Opiates Screen (Negative) ng/mL U Benzodiazepines Scrn (Negative) ng/mL Microbiology - Last 24 Hours (Table) 03/28/20 12:09 Blood Culture - Preliminary Blood No Growth after 24 hours Assessment and Plan Plan: assessment: 1. Oliguric acute kidney injury secondary to ATN secondary to severe sepsis/hypotension. Renal function worsening. Creatinine 4.8 today. No evidence of hydronephrosis noted on ultrasound. 2. Acute hypercapnic respiratory failure maintained on BiPAP. 3. Hyperkalemia secondary to acute kidney injury, arb, and potassium suppleme ntation. Better with medical management. 4. Severe sepsis maintained on antibiotics. Cultures pending. 5. Transaminitis likely from hypoperfusion. Hepatitis panel negative. acetaminophen level not high. 6. Metabolic acidosis secondary to acute kidney injury. 7. Volume overload. Plan: Patient was started on bicarb drip at 75 mL an hour this morning. Normal saline discontinued. Status post IV Lasix March 29 with no response in urine output. Follow-up cultures. Avoid nephrotoxins. monitor vancomycin levels. Dose to be adjusted for renal function. Due to worsening renal function, or oliguria and volume overload, I will initiate renal replacement therapy. Consults vascular surgery for dialysis catheter placement. Plan first treatment of hemodialysis today and second treatment tomorrow. Case discussed with the down filler.
[2020-03-30 09:53] LABS: ALT 3826 U/L (4-34)
[2020-03-30] MEDS: DEXTROSE 5% IN WATER 1,000 ML with SODIUM BICARB (1 MEQ/ML) 150 ML IV SCH (10:19)
[2020-03-30] MEDS: NICOTINE 21MG/24HR PATCH TRANSDERM SCH (10:43)
[2020-03-30] MEDS: HEPARIN SODIUM,PORCINE 5,000 UNIT/ML 1 ML VIAL SQ SCH ×2 (10:43→21:34)
[2020-03-30] MEDS: Vilazodone Hcl [Viibryd] 10 MG Tablet PO SCH (10:44)
[2020-03-30] MEDS: NOREPINEPHRINE 4 MG in SODIUM CHLORIDE 0.9% 250 ML IV SCH (10:45)
--- NOTE | 2020-03-30 11:07 | P.PN ---
Progress Note - Text Progress Note Date: 03/30/20 Patient continue to be very drowsy, yesterday I decreased the intrathecal infusion morphine sulfate from 7.9 mg per day to 7 mg per day, and the course patient continued to be very sleepy , I decreased the intrathecal morphine to 5 mg per day Which is equal to 28% reduction in the total daily dose of intrathecal morphine,
--- NOTE | 2020-03-30 11:27 | P.PN ---
Subjective Progress Note Date: 03/30/20 64-year-old female patient presented to the ED for shortness of breath and difficulty breathing. The patient has chronic pain maintained on a morphine pump on outpatient basis and she hasn't followed up with Dr. Roberts on outpatient basis. Apparently the pain pump was replaced few days back. She is also on a combination of Xanax, gabapentin a [place] in addition to Seroquel. . The patient also has history of hypertension, previous history of CVA, hyperlipidemia, acid reflux and smoking Note that the patient came in for shortness of breath. She denied having any chest pain or palpitation. She denies having any nausea vomiting or abdominal pain. She denied having any headache. No new injury or trauma. No new areas of pain. Note that her initial white cell count was 21.8 and subsequent white cell count was 24.0. The patient had a normal platelet count and a normal hemoglobin of 13.8. Coagulation profile was within normal limits. Nevertheless, the patient was found to be in acute kidney injury. The patient's creatinine was up to 4.12 with a BUN of 29 and the patient's potassium was at 6.4 with a sodium level of 133. Anion gap was only a 10. The lactic acid level was at 3.2 with a calcium level of 7.6. She had an acute hepatocellular injury with a AST of 1741 that subsequently came up to 10/29/2001. She also had a ALT of 1788 and subsequently came at 4690. Troponin was at 0.9. Total protein was 6.2. UA showed +1 protein and +1 glucose. The chest x-ray done in the ED showed no acute cardiopulmonary process. CAT scan of the brain showed no acute process and CAT scan of the abdomen and pelvis done showed a small right-sided pleural effusion and some mild compressive atelectasis of the right lung base. Minimal amount of free fluid in the pelvis. Otherwise negative. EKG was in normal sinus rhythm and there were no acute EKG changes related to hyperkalemia. There is some low voltage EKG and T-wave abnormalities throughout. Note that the patient was treated for the hyperkalemia. The patient was given calcium gluconate and the patient was also given D50 insulin combination and bicarb pushes. The patient was having a low-grade fever of 100.0. The patient was given empiric antibiotic coverage and the patient was covered with a combination of Rocephin and vancomycin. Currently on IV fluids at the rate of 130 mL an hour. The patient was initially admitted to the medical floor and following that the patient was found to be apneic and altered mentally. She was given Narcan. She got transferred to the intensive care unit. She was given IV fluid boluses. The patient started on BiPAP after the blood gases showed an acute hypercapnic respiratory failure. The blood gases was done that showed a pH of 6.98 with a pCO2 of 98 and pO2 of 90 and this was on FiO2 of 40%. the patient is currently on a BiPAP and she is on a Narcan drip at 0.6 mg/hour. On today's evaluation of 03/29/2020, the patient is still lethargic. The patient was taken off the Narcan drip at around midnight and the patient was BiPAP. Nevertheless, the Patient Was Still Hypoventilating. I Repeated the Blood Gases This Morning and Showed a pH of 7.09 with a PCO2 of 71 and PO2 of 73. Based on That, I Restarted the Narcan Drip. I Contacted the Anesthesiologist to Evaluate the Pain Pump. Apparently the Patient Was Taken Total of 7.9 Mg of Morphine through the pump and we did a dose reduction down to 7.0 mg and according to the pain specialist, Dr. Lacy this could've affected the patient's breathing causing significant hypoventilation. The patient was kept on a BiPAP accordingly. The patient was switched to a BiPAP level of 16/5 cm of water and FiO2 28%. A repeat blood gas showed a pH of 7.19 with a pCO2 of 50 and pO2 of 90. The patient was much more alert and awake yet BiPAP dependent. IV fluids in the form of normal saline at the rate of 130 mL an hour. Cardiac rhythm is sinus. Further workup has been ordered including an ultrasound the kidneys and the liver and addition to a urine drug screen. An additional 1 bolus of fluid will be given to the patient today. Tylenol levels have been less than 10. On 03/30/2020, the patient is still doing poorly. She is lethargic and somnolent while wearing the BiPAP at a pressure of 16/5 cm of water. A repeat blood gases was done this morning the patient continues to have a combination of respiratory and metabolic acidosis. Specifically the pH was 7.21 with a pCO2 of 46 and pO2 of 92. The patient's chest x-ray was also showing some increased interstitial edema. The patient was aggressively resuscitated IV fluids and the patient is in a positive fluid balance of 4.5 L for yesterday and 3.1 L for the day before. In any rate, the patient has not produced significant urine output and urine output is noted of 5-10 mL an hour. On her blood work, the patient become acidotic and the electrolytes today shows her serum bicarbonate was 17 with an anion gap of 11. The BNP is 53 with a creatinine of 4.8 indicating further worsening of the renal function tests. As for the liver function tests, they are improving. The patient was in a shock liver. AST is down to 1794 and ALT is down to 3826 and alkaline phosphatase is within normal at 93. Serum ammonia level is at 54. The patient is off the Narcan drip for now. I asked her anesthesiologist to reevaluate the pain infusion knowing that the morphine pump was used on to 7 mg on a daily basis based on yesterday's evaluation and I'm hoping that we can further cut it down as the patient is a component of respiratory acidosis which could be related to opiates in general. I also discussed the case with nephrology. It's likely the patient will need dialysis if the patient is showing signs of fluid overload and addition to a very low urine output. Noted the patient was given a dose of Lasix 80 mg IV push without much benefit. Based on today's blood work, stress this patient to D5 sodium bicarbonate infusion at the rate of 75 mL an hour. The patient remains on empiric antibiotic coverage with IV Rocephin. A triple lumen catheter was inserted. The CVP was around 14. Do not think at was also inserted. Objective - Vital Signs Vital signs: Vital Signs Temp 98.4 F 03/30/20 04:00 Pulse 92 03/30/20 11:04 Resp 13 03/30/20 07:00 BP 120/68 03/30/20 07:00 Pulse Ox 96 03/30/20 07:00 Intake & Output 03/29/20 03/30/20 03/30/20 18:59 06:59 18:59 Intake Total 3499.925 1200 100 Output Total 66 52 3 Balance 3433.925 1148 97 Weight 104.1 kg Intake: IV 2730 1200 100 Dextrose 5% in Water 1, 50 000 ml @ 100 mls/hr IV . [id number] KALLIE with Sodium Bicarb (1 Meq/ml) 150 ml Rx#:[id number] Sodium Chloride 0.9% 1, 1430 1200 100 000 ml @ 100 mls/hr IV . Q10H KALLIE Rx#:[id number] Sodium Chloride 0.9% 1, 1000 000 ml @ 999 mls/hr IV . Q1H1M ONE Rx#:[id number] Vancomycin 1,500 mg In 250 Sodium Chloride 0.9% 250 ml @ 125 mls/hr IVPB ONCE ONE Rx#:[id number] Intake, IV Titration 569.925 Amount Naloxone (Mdv) 2 mg In 569.925 Sodium Chloride 0.9% 250 ml @ 0.6 MG/HR 76.5 mls/ hr IV .Q3H20M KALLIE Rx#: [id number] Oral 200 Output: Urine 66 52 3 Other: Voiding Method Indwelling Catheter Indwelling Catheter # Bowel Movements 1 1 - Exam Gen. appearance the patient is quite lethargic and sleepy yet arousable. Cardiovascular BiPAP at a pressure of 16/5 cm of water. The patient has a triple lumen catheter in the left subclavian. Head exam was generally normal. There was no scleral icterus or corneal arcus. Mucous membranes were moist. Neck was supple and without jugular venous distension, thyromegaly, or carotid bruits. Carotids were easily palpable bilaterally. There was no adenopathy. Lungs sounds are diminished bilaterally otherwise clear. There is no wheezes or rhonchi or any crackles. Cardiac exam revealed the PMI to be normally situated and sized. The rhythm was regular and no extrasystoles were noted during several minutes of auscultation. The first and second heart sounds were normal and physiologic splitting of the second heart sound was noted. There were no murmurs, rubs, clicks, or gallops. Abdominal exam revealed normal bowel sounds. The abdomen was soft, non-tender, and without masses, organomegaly, or appreciable enlargement of the abdominal aorta. The incision over the right abdominal wall is dry clean and intact and there is no active drainage at this point in time. Tisha are all in place. Examination of the extremities revealed easily palpable radial, femoral and pedal pulses. There was no cyanosis, clubbing or and the patient is developing some edema in all 4 extremities more so in the upper extremities bilaterally. Examination of the skin revealed no evidence of significant rashes, suspicious appearing nevi or other concerning lesions. Neurologically the patient is arousable. Quite lethargic at this point in time. She is moving all 4 extremities upon stimulation painful stimuli. No focal neurological deficit at this point in time. - Labs CBC & Chem 7: 03/30/20 03:27 03/30/20 03:27 Labs: Abnormal Lab Results - Last 24 Hours (Table) 03/29/20 03/29/20 03/29/20 Range/Units 12:10 15:37 16:22 WBC (3.8-10.6) k/uL MCV (80.0-100.0) fL MCHC (31.0-37.0) g/dL Plt Count (150-450) k/uL Neutrophils # (1.3-7.7) k/uL Lymphocytes # (1.0-4.8) k/uL INR (<1.2) ABG pH 7.16 L* (7.35-7.45) ABG pCO2 49 H (35-45) mmHg ABG HCO3 17 L (21-25) mmol/L ABG O2 Saturation (94-97) % Sodium 146 H (137-145) mmol/L Chloride 112 H (98-107) mmol/L Carbon Dioxide 31 H (22-30) mmol/L BUN 49 H (7-17) mg/dL Creatinine 3.99 H (0.52-1.04) mg/dL Glucose 114 H (74-99) mg/dL Calcium 6.3 L* (8.4-10.2) mg/dL AST (14-36) U/L ALT (4-34) U/L Ammonia (<30) umol/L Urine Opiates Screen Positive H (Negative) ng/mL U Benzodiazepines Scrn Positive H (Negative) ng/mL 03/29/20 03/29/20 03/30/20 Range/Units 17:05 21:58 03:27 WBC (3.8-10.6) k/uL MCV (80.0-100.0) fL MCHC (31.0-37.0) g/dL Plt Count (150-450) k/uL Neutrophils # (1.3-7.7) k/uL Lymphocytes # (1.0-4.8) k/uL INR (<1.2) ABG pH 7.19 L* 7.20 L (7.35-7.45) ABG pCO2 54 H 50 H (35-45) mmHg ABG HCO3 19 L (21-25) mmol/L ABG O2 Saturation 97.6 H (94-97) % Sodium (137-145) mmol/L Chloride 112 H (98-107) mmol/L Carbon Dioxide 17 L (22-30) mmol/L BUN 53 H (7-17) mg/dL Creatinine 4.80 H (0.52-1.04) mg/dL Glucose (74-99) mg/dL Calcium 7.1 L (8.4-10.2) mg/dL AST (14-36) U/L ALT (4-34) U/L Ammonia (<30) umol/L Urine Opiates Screen (Negative) ng/mL U Benzodiazepines Scrn (Negative) ng/mL 03/30/20 03/30/20 03/30/20 Range/Units 03:27 08:34 08:40 WBC 19.2 H (3.8-10.6) k/uL MCV 102.9 H (80.0-100.0) fL MCHC 30.1 L (31.0-37.0) g/dL Plt Count 120 L (150-450) k/uL Neutrophils # 17.5 H (1.3-7.7) k/uL Lymphocytes # 0.8 L (1.0-4.8) k/uL INR (<1.2) ABG pH 7.21 L (7.35-7.45) ABG pCO2 46 H (35-45) mmHg ABG HCO3 18 L (21-25) mmol/L ABG O2 Saturation (94-97) % Sodium (137-145) mmol/L Chloride (98-107) mmol/L Carbon Dioxide (22-30) mmol/L BUN (7-17) mg/dL Creatinine (0.52-1.04) mg/dL Glucose (74-99) mg/dL Calcium (8.4-10.2) mg/dL AST 1794 H (14-36) U/L ALT 3826 H (4-34) U/L Ammonia (<30) umol/L Urine Opiates Screen (Negative) ng/mL U Benzodiazepines Scrn (Negative) ng/mL 03/30/20 03/30/20 Range/Units 08:40 08:40 WBC (3.8-10.6) k/uL MCV (80.0-100.0) fL MCHC (31.0-37.0) g/dL Plt Count (150-450) k/uL Neutrophils # (1.3-7.7) k/uL Lymphocytes # (1.0-4.8) k/uL INR 1.2 H (<1.2) ABG pH (7.35-7.45) ABG pCO2 (35-45) mmHg ABG HCO3 (21-25) mmol/L ABG O2 Saturation (94-97) % Sodium (137-145) mmol/L Chloride (98-107) mmol/L Carbon Dioxide (22-30) mmol/L BUN (7-17) mg/dL Creatinine (0.52-1.04) mg/dL Glucose (74-99) mg/dL Calcium (8.4-10.2) mg/dL AST (14-36) U/L ALT (4-34) U/L Ammonia 54 H (<30) umol/L Urine Opiates Screen (Negative) ng/mL U Benzodiazepines Scrn (Negative) ng/mL Microbiology - Last 24 Hours (Table) 03/28/20 12:09 Blood Culture - Preliminary Blood No Growth after 24 hours Assessment and Plan Plan: 1 acute hypercapnic respiratory failure, CO2 narcosis , Likely secondary to narcotic overdose probably related to increased dosage of the morphine through the pain pump. Nevertheless, the patient is having a lot of metabolic derangements that can affect her mental status. The patient is a shock liver on the same time the patient acute kidney injury and on today's evaluation she continues to have a component of hypercapnic respiratory failure, metabolic acidosis in addition to diminished level of consciousness. She remains on BiPAP for now at a pressure 16/5 cm of water. She is off the Narcan drip. The dosage in the morphine pump will be reduced further. 2 acute kidney injury, with oligoria him and not responding to fluid challenges. Ultrasound the kidneys shows no evidence of any hydronephrosis. The patient is showing also signs of fluid overload. 3 acute hyperkalemia, improved and the potassium level is down to 4.8 4 mild lactic acidosis, improved 5 acute shock liver, normal coagulation profile and the liver function tests are improving on today's evaluation. 6 chronic pain and the patient has a morphine pain pump in place 7 previous history of CVA without any major neurologic deficits 8 hypertension 9 previous history of syncope 10 chronic back pain with previous history of back surgery in addition to degenerative spine disease in addition to spondylolisthesis and compression fracture 11 smoker 12 hypertension 13 hyperlipidemia 14 acid reflux 15 acute febrile illness, and the patient is currently on empiric antibiotic coverage with a combination of Rocephin and vancomycin. No clear source of infection at this point in time. Plan This patient's condition is overall has decompensated. The patient is more lethargic compared to yesterday. She seems to be much more encephalopathic on today's evaluation. This is a combination of factors as the patient has metabolic acidosis, respiratory acidosis, shock liver and acute kidney injury. For now, we are going to reduce the morphine pump and I've consulted pain management in that regard. I'm continuing the BiPAP treatment for now. Triple-lumen catheter was established. I discussed with nephrology the case and it's likely that the patient would need dialysis as the patient is retaining fluid, progressively going into renal failure and this may ultimately lead into more fluid retention and subsequent decompensation. It's reasonable to consider dialysis at this point in time. Monitor liver function test. Continued empiric antibiotic coverage for now. The patient remains on IV Rocephin. Cultures of been negative thus far. Switched IV fluids to D5 with sodium bicarbonate 75 mL an hour. No pressors for now. Condition is critical. We'll continue to follow make further recommendations based on her progress. Evaluation was done and more than 30 minutes. Time with Patient: Greater than 30
--- NOTE | 2020-03-30 11:29 | P.PCN ---
Date of Procedure: 03/30/20 Preoperative Diagnosis: Acute hypoxic/hypercapnic respiratory failure, kidney failure Postoperative Diagnosis: Acute hypoxic respiratory failure, acute kidney injury Procedure(s) Performed: Central line and arterial line insertion Anesthesia: local Surgeon: Ermias Linares Estimated Blood Loss (ml): 0 Pathology: none sent Condition: critical Disposition: ICU Operative Findings: Indication: Hemodynamic monitoring/Intravenous access. A time-out was completed verifying correct patient, procedure, site, positioning, and implant(s) or special equipment if applicable. The patient was placed in a dependent position appropriate for central line placement based on the vein to be cannulated. The patients upper chest on the left was prepped and draped in sterile fashion. 1% Lidocaine was used to anesthetize the surrounding skin area. A triple lumen 9F Cordis catheter was introduced into the left subclavian vein using Seldinger technique. The catheter was threaded smoothly over the guide wire and appropriate blood return was obtained. Each lumen of the catheter was evacuated of air and flushed with sterile saline. The catheter was then sutured in place to the skin and a sterile dressing applied. Perfusion to the extremity distal to the point of catheter insertion was checked and found to be adequate. The patient tolerated the procedure well and there were no complications. Indication: Hemodynamic monitoring. A time-out was completed verifying correct patient, procedure, site, positioning, and implant(s) or special equipment if applicable. Allens test was performed to ensure adequate perfusion. The patients left wrist was prepped and draped in sterile fashion. 1% Lidocaine was used to anesthetize the area. An 18G Arrow arterial line was introduced into the left radial artery artery. The catheter was threaded over the guide wire and the needle was removed with appropriate pulsatile blood return. Blood loss was minimal. The catheter was then sutured in place to the skin and a sterile dressing applied. Perfusion to the extremity distal to the point of catheter insertion was checked and found to be adequate. The patient tolerated the procedure well and there were no complications.
[2020-03-30] MEDS ORDERED: LIDOCAINE 1% INJ 10MG/ML (20 ML MDV) ONE ×2 (13:42→16:00)
[2020-03-30 14:27] LABS: Hemoglobin A1C 6.2 % (4.0-6.0)
--- NOTE | 2020-03-30 14:37 | P.GSCN ---
History of Present Illness History of present illness: 64-year-old white female consulted for placement of dialysis catheter. Patient has a into chronic renal failure, chronic pain [id number] patient also has history of hypertension. I was consulted for placement of a dialysis catheter. Examinati neck examination neck is no bruit present Chest there are decreased breath sounds second sound present Abdomen is soft nontender vascular examination femorals are 1+ patient is on BiPAP plan is placement of the dialysis catheter risk and complication discussed Past Medical History Past Medical History: Heart Failure, CVA/TIA, Hypertension, Osteoarthritis (OA), Syncope Additional Past Medical History / Comment(s): chronic back pain- has morphine pain pump implanted right abdomen., uses cane/walker prn., hx cva (pt did not know), syncope with hx of falls- states several concusions, fx spine 2018 MRI of the lumbar spine that was done in 2018 showed degenerative disc disease, facet arthropathy, spondylolisthesis, L1 endplate compression fracture without any significant spinal stenosis and the patient had a indwelling stimulator lead. , states swelling lower extremities., gastritis, having" burning in stomach, gas and change in stools", usually eat once daily. , states she broke 4 toes last week. History of Any Multi-Drug Resistant Organisms: None Reported Past Surgical History: Back Surgery Additional Past Surgical History / Comment(s): laproscopic surgery (for miscarriage), back injections Past Anesthesia/Blood Transfusion Reactions: No Reported Reaction Past Psychological History: Anxiety, Bipolar, Depression Smoking Status: Current some day smoker Past Alcohol Use History: None Reported Additional Past Alcohol Use History / Comment(s): smokes 1 1/2 ppd, smoking on and off since she was 24 yrs old. Past Drug Use History: None Reported - Past Family History Father Family Medical History: Cancer, Diabetes Mellitus Mother Family Medical History: Cancer Brother(s) Family Medical History: Cancer Additional Family Medical History / Comment(s): agent orange Medications and Allergies Home Medications Medication Instructions Recorded Confirmed Type HYDROcodone/APAP 10-325MG [[place] 1 tab PO TID PRN 02/12/17 03/28/20 History 10-325] Atorvastatin Calcium [Lipitor] 20 mg PO DAILY 09/02/18 03/28/20 History Ergocalciferol (Vitamin D2) 50,000 unit PO STEVENSON 09/02/18 03/28/20 History [Drisdol] hydrOXYzine HCL [Atarax] 10 mg PO TID PRN #12 tab 11/15/18 03/28/20 Rx Cyanocobalamin (Vitamin B-12) 1,000 mcg PO DAILY 05/27/19 03/28/20 History [Vitamin B-12] Gabapentin [Neurontin] 300 mg PO TID 05/27/19 03/28/20 History Irbesartan [Avapro] 75 mg PO BID 05/27/19 03/28/20 History Morphine/Bupivacaine Pump 0 ml .ROUTE CONTINUOUS 05/27/19 03/28/20 History QUEtiapine [SEROquel] 100 mg PO HS 05/27/19 03/28/20 History Sucralfate [Carafate] 2 gm PO BID 05/27/19 03/28/20 History ALPRAZolam [Xanax] 0.5 mg PO TID PRN 03/28/20 03/28/20 History Furosemide [Lasix] 40 mg PO DAILY 03/28/20 03/28/20 History Potassium Chloride ER [K-Dur 10] 10 meq PO DAILY 03/28/20 03/28/20 History Vilazodone HCl [Viibryd] 10 mg PO DAILY 03/28/20 03/28/20 History rOPINIRole HCL [Requip] 1 mg PO HS 03/28/20 03/28/20 History Allergies Allergy/AdvReac Type Severity Reaction Status Date / Time Sulfa (Sulfonamide Allergy Severe Rash/Hives, Verified 03/28/20 14:32 Antibiotics) N & V, IRREGULAR HEART BEAT. aspirin Allergy IRREGULAR Verified 03/28/20 14:32 HEART BEAT, N & V, HIVES Penicillins Allergy Unknown Verified 03/28/20 14:32 Surgical - Exam Vital Signs Temp Pulse Resp BP Pulse Ox 100 F H 103 H 22 84/55 95 03/28/20 11:11 03/28/20 11:11 03/28/20 11:11 03/28/20 11:11 03/28/20 11:11 Results - Labs 03/30/20 03:27 03/30/20 03:27 Abnormal Lab Results - Last 24 Hours (Table) 03/29/20 03/29/20 03/29/20 Range/Units 12:10 15:37 16:22 WBC (3.8-10.6) k/uL MCV (80.0-100.0) fL MCHC (31.0-37.0) g/dL Plt Count (150-450) k/uL Neutrophils # (1.3-7.7) k/uL Lymphocytes # (1.0-4.8) k/uL INR (<1.2) ABG pH 7.16 L* (7.35-7.45) ABG pCO2 49 H (35-45) mmHg ABG HCO3 17 L (21-25) mmol/L ABG O2 Saturation (94-97) % Sodium 146 H (137-145) mmol/L Chloride 112 H (98-107) mmol/L Carbon Dioxide 31 H (22-30) mmol/L BUN 49 H (7-17) mg/dL Creatinine 3.99 H (0.52-1.04) mg/dL Glucose 114 H (74-99) mg/dL Hemoglobin A1c (4.0-6.0) % Calcium 6.3 L* (8.4-10.2) mg/dL AST (14-36) U/L ALT (4-34) U/L Ammonia (<30) umol/L Urine Opiates Screen Positive H (Negative) ng/mL U Benzodiazepines Scrn Positive H (Negative) ng/mL 03/29/20 03/29/20 03/30/20 Range/Units 17:05 21:58 03:27 WBC (3.8-10.6) k/uL MCV (80.0-100.0) fL MCHC (31.0-37.0) g/dL Plt Count (150-450) k/uL Neutrophils # (1.3-7.7) k/uL Lymphocytes # (1.0-4.8) k/uL INR (<1.2) ABG pH 7.19 L* 7.20 L (7.35-7.45) ABG pCO2 54 H 50 H (35-45) mmHg ABG HCO3 19 L (21-25) mmol/L ABG O2 Saturation 97.6 H (94-97) % Sodium (137-145) mmol/L Chloride (98-107) mmol/L Carbon Dioxide (22-30) mmol/L BUN (7-17) mg/dL Creatinine (0.52-1.04) mg/dL Glucose (74-99) mg/dL Hemoglobin A1c 6.2 H (4.0-6.0) % Calcium (8.4-10.2) mg/dL AST (14-36) U/L ALT (4-34) U/L Ammonia (<30) umol/L Urine Opiates Screen (Negative) ng/mL U Benzodiazepines Scrn (Negative) ng/mL 03/30/20 03/30/20 03/30/20 Range/Units 03:27 03:27 08:34 WBC 19.2 H (3.8-10.6) k/uL MCV 102.9 H (80.0-100.0) fL MCHC 30.1 L (31.0-37.0) g/dL Plt Count 120 L (150-450) k/uL Neutrophils # 17.5 H (1.3-7.7) k/uL Lymphocytes # 0.8 L (1.0-4.8) k/uL INR (<1.2) ABG pH 7.21 L (7.35-7.45) ABG pCO2 46 H (35-45) mmHg ABG HCO3 18 L (21-25) mmol/L ABG O2 Saturation (94-97) % Sodium (137-145) mmol/L Chloride 112 H (98-107) mmol/L Carbon Dioxide 17 L (22-30) mmol/L BUN 53 H (7-17) mg/dL Creatinine 4.80 H (0.52-1.04) mg/dL Glucose (74-99) mg/dL Hemoglobin A1c (4.0-6.0) % Calcium 7.1 L (8.4-10.2) mg/dL AST (14-36) U/L ALT (4-34) U/L Ammonia (<30) umol/L Urine Opiates Screen (Negative) ng/mL U Benzodiazepines Scrn (Negative) ng/mL 03/30/20 03/30/20 03/30/20 Range/Units 08:40 08:40 08:40 WBC (3.8-10.6) k/uL MCV (80.0-100.0) fL MCHC (31.0-37.0) g/dL Plt Count (150-450) k/uL Neutrophils # (1.3-7.7) k/uL Lymphocytes # (1.0-4.8) k/uL INR 1.2 H (<1.2) ABG pH (7.35-7.45) ABG pCO2 (35-45) mmHg ABG HCO3 (21-25) mmol/L ABG O2 Saturation (94-97) % Sodium (137-145) mmol/L Chloride (98-107) mmol/L Carbon Dioxide (22-30) mmol/L BUN (7-17) mg/dL Creatinine (0.52-1.04) mg/dL Glucose (74-99) mg/dL Hemoglobin A1c (4.0-6.0) % Calcium (8.4-10.2) mg/dL AST 1794 H (14-36) U/L ALT 3826 H (4-34) U/L Ammonia 54 H (<30) umol/L Urine Opiates Screen (Negative) ng/mL U Benzodiazepines Scrn (Negative) ng/mL Microbiology - Last 24 Hours (Table) 03/28/20 12:09 Blood Culture - Preliminary Blood No Growth after 48 hours Diabetes panel 03/29/20 03/30/20 03/30/20 Range/Units 16:22 03:27 03:27 Sodium 146 H 140 (137-145) mmol/L Potassium 4.7 4.8 (3.5-5.1) mmol/L Chloride 112 H 112 H (98-107) mmol/L Carbon Dioxide 31 H 17 L (22-30) mmol/L BUN 49 H 53 H (7-17) mg/dL Creatinine 3.99 H 4.80 H (0.52-1.04) mg/dL Glucose 114 H 90 (74-99) mg/dL Hemoglobin A1c 6.2 H (4.0-6.0) % Calcium 6.3 L* 7.1 L (8.4-10.2) mg/dL AST (14-36) U/L ALT (4-34) U/L Alkaline Phosphatase (38-126) U/L 03/30/20 Range/Units 08:40 Sodium (137-145) mmol/L Potassium (3.5-5.1) mmol/L Chloride (98-107) mmol/L Carbon Dioxide (22-30) mmol/L BUN (7-17) mg/dL Creatinine (0.52-1.04) mg/dL Glucose (74-99) mg/dL Hemoglobin A1c (4.0-6.0) % Calcium (8.4-10.2) mg/dL AST 1794 H (14-36) U/L ALT 3826 H (4-34) U/L Alkaline Phosphatase 93 (38-126) U/L Calcium panel 03/29/20 03/30/20 Range/Units 16:22 03:27 Calcium 6.3 L* 7.1 L (8.4-10.2) mg/dL Pituitary panel 03/29/20 03/30/20 Range/Units 16:22 03:27 Sodium 146 H 140 (137-145) mmol/L Potassium 4.7 4.8 (3.5-5.1) mmol/L Chloride 112 H 112 H (98-107) mmol/L Carbon Dioxide 31 H 17 L (22-30) mmol/L BUN 49 H 53 H (7-17) mg/dL Creatinine 3.99 H 4.80 H (0.52-1.04) mg/dL Glucose 114 H 90 (74-99) mg/dL Calcium 6.3 L* 7.1 L (8.4-10.2) mg/dL Adrenal panel 03/29/20 03/30/20 03/30/20 Range/Units 16:22 03:27 08:40 Sodium 146 H 140 (137-145) mmol/L Potassium 4.7 4.8 (3.5-5.1) mmol/L Chloride 112 H 112 H (98-107) mmol/L Carbon Dioxide 31 H 17 L (22-30) mmol/L BUN 49 H 53 H (7-17) mg/dL Creatinine 3.99 H 4.80 H (0.52-1.04) mg/dL Glucose 114 H 90 (74-99) mg/dL Calcium 6.3 L* 7.1 L (8.4-10.2) mg/dL AST 1794 H (14-36) U/L ALT 3826 H (4-34) U/L Alkaline Phosphatase 93 (38-126) U/L
--- NOTE | 2020-03-30 14:39 | P.PCN ---
Description of Procedure: Reoperative diagnoses is acute chronic renal failure Postoperative same Procedure placement of a dialysis catheter ultrasound-guided right femoral approach patient was seen and discussed care unit right groin were prepped and draped for patient management 1% lidocaine for infected the groin area. Ultrasound-guided micropuncture introduced right femoral vein and micropuncture guidewire passed and then we placed a 4-Vietnamese dilator. The discuss the guidewire without any wheezes stent dilator advanced on the top of guidewire then placed a double-lumen dialysis catheter on the top of the guidewire guidewire was removed flushed with heparin saline and Hep-Lock secured with 3-0 nylon dressing applied patient are to the procedure
--- NOTE | 2020-03-30 15:10 | P.PN ---
Progress Note - Text Progress Note Date: 03/30/20 Chief Complaint: Difficulty breathing Hospital course: Patient is 64-year-old female, was family doctor is Dr. pam Baker. Chronic stable medical conditions include chronic pain currently on a morphine pump , hypertension, CHF, and prior stroke who presented to the emergency department . Per the ER report patient is having difficulty breathing. Daughter called and found the same. Patient had a pain pump replaced 3 days ago. She follows with Dr. Hutton for pain pump. 3 days also she states she started having a fever. She has long-standing smoker. Baseline cough. No increased shortness of breath. Did receive some Narcan in the ER as she was a bit lethargic. When she got to the floor she again became lethargic blood gases sitting up pH of 6.88. It seemed to be a mixed respiratory and metabolic acidosis. Patient was therefore moved to the ICU with the orders for BiPAP. When I came to the ICU patient was using a BiPAP and was able to answer questions. She had a temperature of 100 the ER. On the floor she dropped respiratory rate also. She is put on a Narcan drip. Patient admitted with-metabolic encephalopathy likely from pain medications, acute hypoxic and hypercapnic respiratory failure from medications, acute kidney injury, acute ischemic hepatitis, septic shock, mixed metabolic and respiratory acidosis. Admitted ICU. Patient is put on a BiPAP. IV fluids. Levo fed. Bicarbonate. I spoke to Dr. Agee from neurology last night. Patient had his pain pump relocated from the spine to the anterior abdominal wound. It is intrathecal. Dose of morphine was not changed. Patient also was placed on Narcan drip. To which she responded well Today-up in chair. Breathing better. Oral intake improving. On nasal cannula. Per nephrology patient to proceed with hemodialysis. Creatinine is going up. Review of systems: Was done for constitutional, cardiovascular, GI, pulmonary. relevant finding as above Active Medications Albuterol/Ipratropium (Ipratropium-Albuterol 3 Ml Neb) 3 ml INHALATION RT-Q2H PRN PRN Reason: Shortness Of Breath Or Wheezing Albuterol/Ipratropium (Ipratropium-Albuterol 3 Ml Neb) 3 ml INHALATION RT-Q4H [facility] Last Admin: 03/30/20 10:45 Dose: 3 ml Documented by: Diphenoxylate HCl/Atropine (Diphenox-Atrop 2.5-0.025 Mg 1 Each Tab) 1 each PO Q6HR PRN PRN Reason: Diarrhea Last Admin: 03/29/20 16:26 Dose: 1 each Documented by: Gabapentin (Gabapentin 300 Mg Cap) 300 mg PO HS [facility] Last Admin: 03/29/20 23:16 Dose: Not Given Documented by: Heparin Sodium (Porcine) (Heparin Sodium,Porcine 5,000 Unit/Ml 1 Ml Vial) 5,000 unit SQ Q12HR [facility] Last Admin: 03/30/20 10:43 Dose: 5,000 unit Documented by: Sodium Chloride (Saline 0.9%) 1,000 mls @ 100 mls/hr IV .Q10H [facility] Last Admin: 03/30/20 06:17 Dose: 100 mls/hr Documented by: Ceftriaxone Sodium 1 gm/ (Sodium Chloride) 50 mls @ 100 mls/hr IVPB Q24HR [facility] Last Admin: 03/30/20 10:43 Dose: 100 mls/hr Documented by: Naloxone HCl 2 mg/ Sodium (Chloride) 255 mls @ 76.5 mls/hr IV .Q3H20M [facility]; Protocol Last Admin: 03/30/20 10:44 Dose: Not Given Documented by: Norepinephrine Bitartrate 4 mg (/ Sodium Chloride) 254 mls @ 19.01 mls/hr IV .[id number] [facility]; Protocol Last Admin: 03/30/20 10:45 Dose: Not Given Documented by: Sodium Bicarbonate 150 ml/ (Dextrose/Water) 1,150 mls @ 75 mls/hr IV .[id number] [facility] Last Admin: 03/30/20 10:19 Dose: 75 mls/hr Documented by: Naloxone HCl (Naloxone 0.4 Mg/Ml 1 Ml Vial) 0.2 mg IVP Q2M PRN PRN Reason: Opioid Reversal Last Admin: 03/28/20 17:23 Dose: 0.2 mg Documented by: Nicotine (Nicotine 21mg/24hr Patch) 1 patch TRANSDERM DAILY [facility] Last Admin: 03/30/20 10:43 Dose: 1 patch Documented by: Vilazodone Hcl [ Viibryd] 10 Mg Tablet 10 mg PO DAILY [facility] Last Admin: 03/30/20 10:44 Dose: Not Given Documented by: Ropinirole HCl (Ropinirole Hcl 1 Mg Tab) 1 mg PO HS [facility] Last Admin: 03/29/20 23:16 Dose: Not Given Documented by: Physical examination: VITAL SIGNS: 98, 87, 13, 130/61, 98% on nasal cannula GENERAL: Sitting up in a chair, nasal cannula awake EYES: Pupils equal. Conjunctiva normal. HEENT: External appearance of nose and ears normal, oral cavity grossly normal. NECK: JVD unable to assess; masses not palpable. HEART: First and second heart sounds are normal; no edema. LUNGS: Respiratory rate increased, diminished breath sounds prolonged expiration. ABDOMEN: Soft, nontender, liver spleen not palpable, no masses palpable. Right abdominal incision site healing well with the underlying pain pump PSYCH: Awake alert answer questions INVESTIGATIONS, reviewed in the clinical context: White count 19.2 hemoglobin 12.6 potassium 4.8 bun 53 creatinine 4.80 AST 1794, ALT 3826 Admission testing White count 21.8 hemoglobin 13.6 increased neutrophils potassium 6.4 bun 29 creatinine 4.12 Lactic acid 3.2 troponin I 0.911 AST 1741, ALT 1788 Hepatitis B surface antigen, core IgM antibody, hepatitis C IgG antibody all nonreactive ABG-pH 6.98, pCO2 98, bicarb 23 acetaminophen level less than 10 UA-negative for nitrate and leukoesterase EKG tracing personally reviewed by me-normal sinus rhythm some T-wave changes Computed tomography scan of the abdomen and pelvis-nonspecific Computed tomography scan of the brain-unremarkable Chest x-ray film personally reviewed by me-no obvious infiltrate, some elevations right diaphragm C. difficile-negative COVID 19 PCR not detected Hepatitis A IgM antibody nonreactive Previous testing: renal function is normal in December 2018 Assessment: -Acute metabolic encephalopathy. In the setting of acute renal failure patients on Neurontin [place] Seroquel Xanax Requip and viibryd. Has been put on a Narcan improved -Chronic pain syndrome with a morphine pain pump that for relocated from the spine to the anterior abdominal wall 3 days prior to admission being followed by Dr. bedolla, but no change in morphine dose -Obesity BMI 34.5 -Severe ischemic hepatitis from improving slowly -Acute kidney injury likely ATN and worsening -Septic shock and blood pressure dropping down to the 70s systolic. -Chronic L1 compression fracture -Acute hypoxic and hypercapnic respiratory failure responding to BiPAP-improving -Mixed metabolic and respiratory acidosis -Chronic nicotine dependence, patient is a cigarette smoker -Acute COPD exacerbation in a current smoker -Low-grade fever and infection site unknown Plan: -To have hemodialysis catheter placed today. On IV ceftriaxone, saline. Also getting IV bicarbonate
[2020-03-30] MEDS ORDERED: HEPARIN SODIUM,PORCINE 5,000 UNIT/ML 1 ML VIAL ONE (16:00)
--- NOTE | 2020-03-30 17:04 | PN ---
PROGRESS NOTE DATE OF SERVICE: 03/30/2020 REASON FOR FOLLOWUP: Leukocytosis, possible abdominal source. INTERVAL HISTORY: The patient is currently afebrile. The patient noticed to have worsening of her kidney function. The patient did have a dialysis catheter placed and is undergoing dialysis. The patient is hemodynamically stable, not on pressor support. Denies having any chest pain, no shortness of breath, currently on BiPAP. No vomiting or any diarrhea reported. PHYSICAL EXAMINATION: Her blood pressure is 151/78 with a pulse of 83, temperature 98.4. General description is a middle-aged female, lying in bed in no distress. RESPIRATORY SYSTEM: Unlabored breathing, decreased breath sounds in the base, with no wheeze. HEART: S1, S2. Regular rate and rhythm. ABDOMEN: Soft, no tenderness. No guarding or rigidity. LABS: Hemoglobin is 12.4, white count of 19.2 with a BUN of 53, creatinine 4.80. Blood culture has been negative. DIAGNOSTIC IMPRESSION AND PLAN: Patient with leukocytosis which is multifactorial in this patient with abnormal ultrasound and concern for possible cholecystitis. Currently covered with Rocephin given from surgical evaluation. Continue supportive care. MMODL / IJN: [id number] /
[2020-03-30] MEDS ORDERED: hydrALAZINE HCL 20 MG/ML 1 ML VIAL IVP STA (21:13)
[2020-03-31] MEDS: hydrALAZINE HCL 20 MG/ML 1 ML VIAL IVP PRN ×4 (00:03→20:58)
[2020-03-31] MEDS: NALOXONE (MDV) 2 MG in SODIUM CHLORIDE 0.9% 250 ML IV SCH ×6 (02:05→20:54)
[2020-03-31] MEDS: IPRATROPIUM-ALBUTEROL 3 ML NEB INHALATION SCH ×6 (03:21→23:07)
[2020-03-31 04:21] LABS: Basophils % (A) 0 %; Eosinophils # (A) 0.2 k/uL (0-0.7); Eosinophils % (A) 1 %; HCT 37.9 % (34.0-46.0); HGB 11.8 gm/dL (11.4-16.0); Lymphocytes # (A) 0.6 k/uL (1.0-4.8); Lymphocytes % (A) 3 %; MCH 29.5 pg (25.0-35.0); MCHC 31.2 g/dL (31.0-37.0); Monocytes # (A) 0.4 k/uL (0-1.0); Monocytes % (A) 2 %; Neutrophils # (A) 16.1 k/uL (1.3-7.7); Neutrophils % (A) 93 %; Platelet Count 133 k/uL (150-450); RBC 4.01 m/uL (3.80-5.40); RDW 15.2 % (11.5-15.5); WBC 17.2 k/uL (3.8-10.6)
[2020-03-31 04:22] LABS: Albumin 2.7 g/dL (3.5-5.0); Calcium 7.3 mg/dL (8.4-10.2); Potassium 3.7 mmol/L (3.5-5.1); Total Bilirubin 0.6 mg/dL (0.2-1.3)
[2020-03-31 04:25] LABS: MCV 94.7 fL (80.0-100.0)
[2020-03-31] MEDS: NOREPINEPHRINE 4 MG in SODIUM CHLORIDE 0.9% 250 ML IV SCH ×2 (05:28→18:18)
[2020-03-31] MEDS ORDERED: POTASSIUM CHLORIDE 20 MEQ in WATER FOR INJECTION 1 100ML.BAG IVPB STA (06:39)
--- NOTE | 2020-03-31 07:08 | XR ---
EXAMINATION TYPE: XR chest 1V portable DATE OF EXAM: 03/31/2020 HISTORY: Shortness of breath. COMPARISON: 03/30/2020 TECHNIQUE: Single view of the chest is submitted. FINDINGS: Demonstrated are scattered senescent parenchymal change. Basilar infiltrates are unchanged. Central venous line is noted. The heart is stable. Hilar and mediastinal structures are within normal limits. Degenerative changes are seen of the dorsal spine. IMPRESSION: 1. Basilar infiltrates are unchanged.
[2020-03-31] MEDS ORDERED: HEPARIN SODIUM,PORCINE 5,000 UNIT/ML 1 ML VIAL ONE (08:00)
[2020-03-31 08:01] LABS: ABG Base Excess -0.4 mmol/L; ABG HCO3 25 mmol/L (21-25); ABG Oxygen Saturation 97.5 % (94-97); ABG PCO2 45 mmHg (35-45); ABG PH 7.36 (7.35-7.45); ABG PO2 92 mmHg (83-108); ABG TCO2 27 mmol/L (19-24)
[2020-03-31 08:03] LABS: Allen Test Performed? no
[2020-03-31] MEDS: GABAPENTIN 300 MG CAP PO SCH (08:52)
--- NOTE | 2020-03-31 09:10 | P.PCN ---
Date of Procedure: 03/31/20 Procedure(s) Performed: OPERATION: Intrathecal pain pump analysis, programming and reprogramming. PREOPERATIVE DIAGNOSES: 1. opioid tolerance 2-acute respiratory failure. 3-acute renal failure. 4-acute liver failure POSTOPERATIVE DIAGNOSES: Same as preoperative diagnosis. ANESTHESIA: None. CONDITION: Critical. Indication for the procedure= this is 64 years old female who was admitted to [facility] intensive care unit, secondary to acute respiratory failure, and she had acute renal failure and acute liver failure, patient had intrathecal pain pump was replaced by the Dr. Roberts neurologist , patient was on intrathecal infusion, morphine sulfate preservative free, and 7.9 mg per day, patient was evaluated on and I decreased the intrathecal pain medication to 7 mg per day , patient continued to be very drowsy and requiring respiratory support, and on 03/30/2020 I decreased the infusion to morphine sulfate 5 mg per day ,which is equal to 28% decrease in the daily dose, today on 03/31/2020, patient continued to be very drowsy, and requiring respiratory support with BiPAP machine, I decreased the intrathecal morphine infusion to see 0.5 mg per day , The intrathecal pain pump as well as a short patient had morphine sulfate concentration 25 mg per mL and she had residual volume 9.3 mL and patient was receiving the daily dose of morphine 4.99 mg per day which is decreased to 3.49 mg per day. Further management will be as per critical care team
--- NOTE | 2020-03-31 09:56 | P.PN ---
Subjective Patient is seen in follow-up for acute kidney injury and hyperkalemia. she was started on hemodialysis in March 30 for oliguria and volume overload.. Urine output about 5 mL an hour. Not requiring vasopressors. Potassium level normal. just came off BiPAP this morning. Vital signs are stable. General: The patient appeared well nourished and normally developed. HEENT: Head exam is unremarkable. Neck is without jugular venous distension. On BiPAP. LUNGS: Breath sounds decreased. HEART: Rate and Rhythm are regular. First and second heart sounds normal. No murmurs, rubs or gallops. ABDOMEN: Soft, nontender. EXTREMITITES: 1+ edema. Objective - Vital Signs Vital signs: Vital Signs Temp 97.9 F 03/31/20 00:00 Pulse 94 03/31/20 08:50 Resp 16 03/31/20 05:00 BP 133/62 03/31/20 05:00 Pulse Ox 97 03/31/20 05:00 Intake & Output 03/30/20 03/31/20 03/31/20 18:59 06:59 18:59 Intake Total 1682 900 75 Output Total 1039 56 5 Balance 643 844 70 Intake: IV 1682 900 75 Dextrose 5% in Water 1, 1282 900 75 000 ml @ 75 mls/hr IV . [id number] KALLIE with Sodium Bicarb (1 Meq/ml) 150 ml Rx#:[id number] Sodium Chloride 0.9% 1, 400 000 ml @ 100 mls/hr IV . Q10H KALLIE Rx#:[id number] Output: Urine 39 56 5 Hemodialysis 1000 Other: Voiding Method Indwelling Catheter Indwelling Catheter ABP, PAP, CO, CI - Last Documented Arterial Blood Pressure 132/55 - Labs CBC & Chem 7: 03/31/20 04:00 03/31/20 04:00 Labs: Abnormal Lab Results - Last 24 Hours (Table) 03/30/20 03/30/20 03/31/20 Range/Units 03:27 08:40 04:00 WBC 17.2 H (3.8-10.6) k/uL Plt Count 133 L (150-450) k/uL Neutrophils # 16.1 H (1.3-7.7) k/uL Lymphocytes # 0.6 L (1.0-4.8) k/uL ABG Total CO2 (19-24) mmol/L ABG O2 Saturation (94-97) % BUN (7-17) mg/dL Creatinine (0.52-1.04) mg/dL Glucose (74-99) mg/dL Hemoglobin A1c 6.2 H (4.0-6.0) % Calcium (8.4-10.2) mg/dL AST (14-36) U/L ALT 3826 H (4-34) U/L Ammonia (<30) umol/L Total Protein (6.3-8.2) g/dL Albumin (3.5-5.0) g/dL 03/31/20 03/31/20 03/31/20 Range/Units 04:00 04:00 07:55 WBC (3.8-10.6) k/uL Plt Count (150-450) k/uL Neutrophils # (1.3-7.7) k/uL Lymphocytes # (1.0-4.8) k/uL ABG Total CO2 27 H (19-24) mmol/L ABG O2 Saturation 97.5 H (94-97) % BUN 54 H (7-17) mg/dL Creatinine 5.10 H (0.52-1.04) mg/dL Glucose 147 H (74-99) mg/dL Hemoglobin A1c (4.0-6.0) % Calcium 7.3 L (8.4-10.2) mg/dL AST 862 H (14-36) U/L ALT 3266 H (4-34) U/L Ammonia 34 H (<30) umol/L Total Protein 5.0 L (6.3-8.2) g/dL Albumin 2.7 L (3.5-5.0) g/dL Microbiology - Last 24 Hours (Table) 03/28/20 12:09 Blood Culture - Preliminary Blood No Growth after 48 hours Assessment and Plan Plan: assessment: 1. Oliguric acute kidney injury secondary to ATN secondary to severe sepsis/hypotension. creatinine up to 5.1 today. Started on hemodialysis March 30. No evidence of hydronephrosis noted on ultrasound. 2. Acute hypercapnic respiratory failure. 3. Hyperkalemia secondary to acute kidney injury, arb, and potassium supplementation. resolved. 4. Severe sepsis maintained on antibiotics. Cultures pending. 5. Transaminitis likely from hypoperfusion. Hepatitis panel negative. bacilio taminophen level not high. improving. 6. Metabolic acidosis secondary to acute kidney injury. improved postdialysis. 7. Volume overload. improving with ultrafiltration. Plan: currently seen while undergoing hemodialysis - trying for 2-1/2 L ultrafiltration. plan for her third treatment of hemodialysis tomorrow. maintain normal saline at 50 mL an hour. Lasix 80 mg IV once today at 3 PM. Follow-up cultures. Avoid nephrotoxins.
[2020-03-31] MEDS: SODIUM CHLORIDE 0.9% 1,000 ML IV SCH (10:18)
[2020-03-31] MEDS: NICOTINE 21MG/24HR PATCH TRANSDERM SCH (11:11)
[2020-03-31] MEDS: HEPARIN SODIUM,PORCINE 5,000 UNIT/ML 1 ML VIAL SQ SCH ×2 (11:11→20:58)
--- NOTE | 2020-03-31 11:54 | P.PN ---
Subjective Progress Note Date: 03/31/20 64-year-old female patient presented to the ED for shortness of breath and difficulty breathing. The patient has chronic pain maintained on a morphine pump on outpatient basis and she hasn't followed up with Dr. Roberts on outpatient basis. Apparently the pain pump was replaced few days back. She is also on a combination of Xanax, gabapentin a [place] in addition to Seroquel. . The patient also has history of hypertension, previous history of CVA, hyperlipidemia, acid reflux and smoking Note that the patient came in for shortness of breath. She denied having any chest pain or palpitation. She denies having any nausea vomiting or abdominal pain. She denied having any headache. No new injury or trauma. No new areas of pain. Note that her initial white cell count was 21.8 and subsequent white cell count was 24.0. The patient had a normal platelet count and a normal hemoglobin of 13.8. Coagulation profile was within normal limits. Nevertheless, the patient was found to be in acute kidney injury. The patient's creatinine was up to 4.12 with a BUN of 29 and the patient's potassium was at 6.4 with a sodium level of 133. Anion gap was only a 10. The lactic acid level was at 3.2 with a calcium level of 7.6. She had an acute hepatocellular injury with a AST of 1741 that subsequently came up to 10/29/2001. She also had a ALT of 1788 and subsequently came at 4690. Troponin was at 0.9. Total protein was 6.2. UA showed +1 protein and +1 glucose. The chest x-ray done in the ED showed no acute cardiopulmonary process. CAT scan of the brain showed no acute process and CAT scan of the abdomen and pelvis done showed a small right-sided pleural effusion and some mild compressive atelectasis of the right lung base. Minimal amount of free fluid in the pelvis. Otherwise negative. EKG was in normal sinus rhythm and there were no acute EKG changes related to hyperkalemia. There is some low voltage EKG and T-wave abnormalities throughout. Note that the patient was treated for the hyperkalemia. The patient was given calcium gluconate and the patient was also given D50 insulin combination and bicarb pushes. The patient was having a low-grade fever of 100.0. The patient was given empiric antibiotic coverage and the patient was covered with a combination of Rocephin and vancomycin. Currently on IV fluids at the rate of 130 mL an hour. The patient was initially admitted to the medical floor and following that the patient was found to be apneic and altered mentally. She was given Narcan. She got transferred to the intensive care unit. She was given IV fluid boluses. The patient started on BiPAP after the blood gases showed an acute hypercapnic respiratory failure. The blood gases was done that showed a pH of 6.98 with a pCO2 of 98 and pO2 of 90 and this was on FiO2 of 40%. the patient is currently on a BiPAP and she is on a Narcan drip at 0.6 mg/hour. On today's evaluation of 03/29/2020, the patient is still lethargic. The patient was taken off the Narcan drip at around midnight and the patient was BiPAP. Nevertheless, the Patient Was Still Hypoventilating. I Repeated the Blood Gases This Morning and Showed a pH of 7.09 with a PCO2 of 71 and PO2 of 73. Based on That, I Restarted the Narcan Drip. I Contacted the Anesthesiologist to Evaluate the Pain Pump. Apparently the Patient Was Taken Total of 7.9 Mg of Morphine through the pump and we did a dose reduction down to 7.0 mg and according to the pain specialist, Dr. Lacy this could've affected the patient's breathing causing significant hypoventilation. The patient was kept on a BiPAP accordingly. The patient was switched to a BiPAP level of 16/5 cm of water and FiO2 28%. A repeat blood gas showed a pH of 7.19 with a pCO2 of 50 and pO2 of 90. The patient was much more alert and awake yet BiPAP dependent. IV fluids in the form of normal saline at the rate of 130 mL an hour. Cardiac rhythm is sinus. Further workup has been ordered including an ultrasound the kidneys and the liver and addition to a urine drug screen. An additional 1 bolus of fluid will be given to the patient today. Tylenol levels have been less than 10. On 03/30/2020, the patient is still doing poorly. She is lethargic and somnolent while wearing the BiPAP at a pressure of 16/5 cm of water. A repeat blood gases was done this morning the patient continues to have a combination of respiratory and metabolic acidosis. Specifically the pH was 7.21 with a pCO2 of 46 and pO2 of 92. The patient's chest x-ray was also showing some increased interstitial edema. The patient was aggressively resuscitated IV fluids and the patient is in a positive fluid balance of 4.5 L for yesterday and 3.1 L for the day before. In any rate, the patient has not produced significant urine output and urine output is noted of 5-10 mL an hour. On her blood work, the patient become acidotic and the electrolytes today shows her serum bicarbonate was 17 with an anion gap of 11. The BNP is 53 with a creatinine of 4.8 indicating further worsening of the renal function tests. As for the liver function tests, they are improving. The patient was in a shock liver. AST is down to 1794 and ALT is down to 3826 and alkaline phosphatase is within normal at 93. Serum ammonia level is at 54. The patient is off the Narcan drip for now. I asked her anesthesiologist to reevaluate the pain infusion knowing that the morphine pump was used on to 7 mg on a daily basis based on yesterday's evaluation and I'm hoping that we can further cut it down as the patient is a component of respiratory acidosis which could be related to opiates in general. I also discussed the case with nephrology. It's likely the patient will need dialysis if the patient is showing signs of fluid overload and addition to a very low urine output. Noted the patient was given a dose of Lasix 80 mg IV push without much benefit. Based on today's blood work, stress this patient to D5 sodium bicarbonate infusion at the rate of 75 mL an hour. The patient remains on empiric antibiotic coverage with IV Rocephin. A triple lumen catheter was inserted. The CVP was around 14. Do not think at was also inserted. 03/31/2020, the patient is being seen in follow-up. She remains a bit obtunded. Yet she is arousable. Profoundly weak especially in the upper and lower extremities. I noted that she was on the BiPAP throughout the night of the pressure of 16/5 cm of water with an FiO2 of 28%. She was also on a backup rate of 14. She remains on the same respiratory throughout the night and she hasn't been able to trigger the BiPAP machine. As such, I'm still concerned of the possibility of ongoing narcotics causing respiratory suppression. I repeated the blood gases this morning and there was improvement in the acid base status. The patient's pH was at 7.36 with a pCO2 of 45 and a pO2 of 92. She was still r eceiving a bicarb infusion at the rate of 150 mL an hour. Note that the serum bicarbs up to 26. Renal function is still impaired with a BUN of 54 and creatinine of 5.1. The patient underwent hemodialysis yesterday with a removal of 1 L of fluid and another session of hemodialysis will be done today. The patient is on empiric antibiotic coverage with IV Rocephin. She is also on a low dose norepinephrine for hemodynamic support as needed. Currently she is off the pressors. She was seen by nephrology. Another dose of 80 mg IV Lasix push was given to improve her urine output. The neck fluid balance over the past 24 hours is in the order of 1.4 L positive. The chest x-ray from today, shows hilar and mediastinal structures are within normal limits. There is by basilar infiltrates that are essentially unchanged. There is also scattered senescent parenchymal change. No other abnormalities have been noted. The surgical wound site over the abdominal wall is dry clean and intact. Note that yesterday were able to The Patient's Morphine Infusion to a Total of 5 Mg on a Daily Basis. Objective - Vital Signs Vital signs: Vital Signs Temp 97.9 F 03/31/20 00:00 Pulse 94 03/31/20 08:50 Resp 16 03/31/20 05:00 BP 133/62 03/31/20 05:00 Pulse Ox 97 03/31/20 05:00 Intake & Output 03/30/20 03/31/20 03/31/20 18:59 06:59 18:59 Intake Total 1682 900 75 Output Total 1039 56 5 Balance 643 844 70 Intake: IV 1682 900 75 Dextrose 5% in Water 1, 1282 900 75 000 ml @ 75 mls/hr IV . [id number] KALLIE with Sodium Bicarb (1 Meq/ml) 150 ml Rx#:[id number] Sodium Chloride 0.9% 1, 400 000 ml @ 100 mls/hr IV . Q10H KALLIE Rx#:[id number] Output: Urine 39 56 5 Hemodialysis 1000 Other: Voiding Method Indwelling Catheter Indwelling Catheter ABP, PAP, CO, CI - Last Documented Arterial Blood Pressure 132/55 - Exam Gen. appearance the patient is quite lethargic and sleepy yet arousable. Cardi ovascular BiPAP at a pressure of 16/5 cm of water. The patient has a triple lumen catheter in the left subclavian. Head exam was generally normal. There was no scleral icterus or corneal arcus. Mucous membranes were moist. Neck was supple and without jugular venous distension, thyromegaly, or carotid bruits. Carotids were easily palpable bilaterally. There was no adenopathy. Lungs sounds are diminished bilaterally otherwise clear. There is no wheezes or rhonchi or any crackles. Cardiac exam revealed the PMI to be normally situated and sized. The rhythm was regular and no extrasystoles were noted during several minutes of auscultation. The first and second heart sounds were normal and physiologic splitting of the second heart sound was noted. There were no murmurs, rubs, clicks, or gallops. Abdominal exam revealed normal bowel sounds. The abdomen was soft, non-tender, and without masses, organomegaly, or appreciable enlargement of the abdominal aorta. The incision over the right abdominal wall is dry clean and intact and there is no active drainage at this point in time. Tisha are all in place. Examination of the extremities revealed easily palpable radial, femoral and pedal pulses. There was no cyanosis, clubbing or and the patient is developing some edema in all 4 extremities more so in the upper extremities bilaterally. Examination of the skin revealed no evidence of significant rashes, suspicious appearing nevi or other concerning lesions. Neurologically the patient is arousable. Quite lethargic at this point in time. She is moving all 4 extremities upon stimulation painful stimuli. No focal neurological deficit at this point in time. - Labs CBC & Chem 7: 03/31/20 04:00 03/31/20 04:00 Labs: Abnormal Lab Results - Last 24 Hours (Table) 03/30/20 03/31/20 03/31/20 Range/Units 03:27 04:00 04:00 WBC 17.2 H (3.8-10.6) k/uL Plt Count 133 L (150-450) k/uL Neutrophils # 16.1 H (1.3-7.7) k/uL Lymphocytes # 0.6 L (1.0-4.8) k/uL ABG Total CO2 (19-24) mmol/L ABG O2 Saturation (94-97) % BUN 54 H (7-17) mg/dL Creatinine 5.10 H (0.52-1.04) mg/dL Glucose 147 H (74-99) mg/dL Hemoglobin A1c 6.2 H (4.0-6.0) % Calcium 7.3 L (8.4-10.2) mg/dL AST 862 H (14-36) U/L ALT 3266 H (4-34) U/L Ammonia (<30) umol/L Total Protein 5.0 L (6.3-8.2) g/dL Albumin 2.7 L (3.5-5.0) g/dL 03/31/20 03/31/20 Range/Units 04:00 07:55 WBC (3.8-10.6) k/uL Plt Count (150-450) k/uL Neutrophils # (1.3-7.7) k/uL Lymphocytes # (1.0-4.8) k/uL ABG Total CO2 27 H (19-24) mmol/L ABG O2 Saturation 97.5 H (94-97) % BUN (7-17) mg/dL Creatinine (0.52-1.04) mg/dL Glucose (74-99) mg/dL Hemoglobin A1c (4.0-6.0) % Calcium (8.4-10.2) mg/dL AST (14-36) U/L ALT (4-34) U/L Ammonia 34 H (<30) umol/L Total Protein (6.3-8.2) g/dL Albumin (3.5-5.0) g/dL Microbiology - Last 24 Hours (Table) 03/28/20 12:09 Blood Culture - Preliminary Blood No Growth after 48 hours Assessment and Plan Plan: 1 acute hypercapnic respiratory failure, CO2 narcosis , Likely secondary to narcotic overdose probably related to increased dosage of the morphine through the pain pump. Nevertheless, the patient is having a lot of metabolic derangements that can affect her mental status. The patient is a shock liver on the same time the patient acute kidney injury and on today's evaluation she continues to have a component of hypercapnic respiratory failure, metabolic acidosis in addition to diminished level of consciousness. She remains on BiPAP for now at a pressure 16/5 cm of water. She is off the Narcan drip. The dosage in the morphine pump is being gradually reduced. The acid base status on today's blood gas shows further improvement of the patient was receiving bicarb infusion and patient's most recent pH is at 7.36 with a pCO2 of 45 and a pO2 of 92. The patient has no acute abnormalities on chest x-ray. The patient started hemodialysis yesterday. 2 acute kidney injury, with oligoria him and not responding to fluid chal lenges. The patient is not responding to Lasix. The patient was started on hemodialysis yesterday, and the plan is for a second session of hemodialysis today with an ultrafiltration of 2 and half liters. 3 acute hyperkalemia, recovered 4 mild lactic acidosis, improved 5 acute shock liver, and the patient's liver functions insulin improving, the coagulation profile is within normal limits. 6 chronic pain and the patient has a morphine pain pump in place 7 previous history of CVA without any major neurologic deficits 8 hypertension 9 previous history of syncope 10 chronic back pain with previous history of back surgery in addition to degenerative spine disease in addition to spondylolisthesis and compression fracture 11 smoker 12 hypertension 13 hyperlipidemia 14 acid reflux 15 acute febrile illness, and the patient is currently on empiric antibiotic coverage with a combination of Rocephin and vancomycin. No clear source of infection at this point in time. Plan The patient will undergo hemodialysis today with an ultrafiltration of 10 and half liters another session of dialysis will be done tomorrow trial of Lasix 80 mg IV push were going to reduce the IV fluids and discontinue the bicarb infusion switch this patient to a normal saline today to 50 mL an hour Aspirin services to further reduce the total opiate delivered from the morphine pump to 3.5 mg on a daily basis Once the patient completes hemodialysis, she should be able to get a trial off the BiPAP and will monitor the blood gases We'll continue to follow make further recommendations based on her progress. Condition remains critical.
[2020-03-31] MEDS ORDERED: FUROSEMIDE 10 MG/ML 10 ML VIAL IV ONE (15:00)
[2020-03-31 15:48] LABS: ABG Base Excess 1.2 mmol/L; ABG HCO3 27 mmol/L (21-25); ABG Oxygen Saturation 97.9 % (94-97); ABG PCO2 50 mmHg (35-45); ABG PH 7.34 (7.35-7.45); ABG PO2 100 mmHg (83-108); ABG TCO2 29 mmol/L (19-24)
--- NOTE | 2020-03-31 15:48 | P.PN ---
Progress Note - Text Progress Note Date: 03/31/20 Chief Complaint: Difficulty breathing Hospital course: Patient is 64-year-old female, was family doctor is Dr. pam Baker. Chronic stable medical conditions include chronic pain currently on a morphine pump , hypertension, CHF, and prior stroke who presented to the emergency department . Per the ER report patient is having difficulty breathing. Daughter called and found the same. Patient had a pain pump replaced 3 days ago. She follows with Dr. Hutton for pain pump. 3 days also she states she started having a fever. She has long-standing smoker. Baseline cough. No increased shortness of breath. Did receive some Narcan in the ER as she was a bit lethargic. When she got to the floor she again became lethargic blood gases sitting up pH of 6.88. It seemed to be a mixed respiratory and metabolic acidosis. Patient was therefore moved to the ICU with the orders for BiPAP. When I came to the ICU patient was using a BiPAP and was able to answer questions. She had a temperature of 100 the ER. On the floor she dropped respiratory rate also. She is put on a Narcan drip. Patient admitted with-metabolic encephalopathy likely from pain medications, acute hypoxic and hypercapnic respiratory failure from medications, acute kidney injury, acute ischemic hepatitis, septic shock, mixed metabolic and respiratory acidosis. Admitted ICU. Patient is put on a BiPAP. IV fluids. Levo fed. Bicarbonate. I spoke to Dr. Agee from neurology last night. Patient had his pain pump relocated from the spine to the anterior abdominal wound. It is intrathecal. Dose of morphine was not changed. Patient also was placed on Narcan drip. To which she responded well. Started on hemodialysis March 30. Today-on nasal cannula. Tired. Not eating much. Intrathecal morphine infusion was decreased to 0.5 mg/h. Review of systems: Was done for constitutional, cardiovascular, GI, pulmonary. relevant finding as above Active Medications Albuterol/Ipratropium (Ipratropium-Albuterol 3 Ml Neb) 3 ml INHALATION RT-Q2H PRN PRN Reason: Shortness Of Breath Or Wheezing Albuterol/Ipratropium (Ipratropium-Albuterol 3 Ml Neb) 3 ml INHALATION RT-Q4H KALLIE Last Admin: 03/31/20 15:25 Dose: 3 ml Documented by: Diphenoxylate HCl/Atropine (Diphenox-Atrop 2.5-0.025 Mg 1 Each Tab) 1 each PO Q6HR PRN PRN Reason: Diarrhea Last Admin: 03/29/20 16:26 Dose: 1 each Documented by: Gabapentin (Gabapentin 300 Mg Cap) 300 mg PO HS [facility] Last Admin: 03/31/20 08:52 Dose: Not Given Documented by: Heparin Sodium (Porcine) (Heparin Sodium,Porcine 5,000 Unit/Ml 1 Ml Vial) 5,000 unit SQ Q12HR [facility] Last Admin: 03/31/20 11:11 Dose: 5,000 unit Documented by: Hydralazine HCl (Hydralazine Hcl 20 Mg/Ml 1 Ml Vial) 20 mg IVP Q4HR PRN PRN Reason: Blood Pressure - High Last Admin: 03/31/20 12:06 Dose: 20 mg Documented by: Ceftriaxone Sodium 1 gm/ (Sodium Chloride) 50 mls @ 100 mls/hr IVPB Q24HR [facility] Last Admin: 03/31/20 11:11 Dose: 100 mls/hr Documented by: Naloxone HCl 2 mg/ Sodium (Chloride) 255 mls @ 76.5 mls/hr IV .Q3H20M [facility]; Protocol Last Admin: 03/31/20 15:32 Dose: Not Given Documented by: Norepinephrine Bitartrate 4 mg (/ Sodium Chloride) 254 mls @ 19.01 mls/hr IV .[id number] [facility]; Protocol Last Admin: 03/31/20 05:28 Dose: Not Given Documented by: Sodium Chloride (Saline 0.9%) 1,000 mls @ 50 mls/hr IV .Q20H [facility] Last Admin: 03/31/20 10:18 Dose: 50 mls/hr Documented by: Naloxone HCl (Naloxone 0.4 Mg/Ml 1 Ml Vial) 0.2 mg IVP Q2M PRN PRN Reason: Opioid Reversal Last Admin: 03/28/20 17:23 Dose: 0.2 mg Documented by: Nicotine (Nicotine 21mg/24hr Patch) 1 patch TRANSDERM DAILY [facility] Last Admin: 03/31/20 11:11 Dose: 1 patch Documented by: Vilazodone Hcl [ Viibryd] 10 Mg Tablet 10 mg PO DAILY [facility] Last Admin: 03/30/20 10:44 Dose: Not Given Documented by: Ropinirole HCl (Ropinirole Hcl 1 Mg Tab) 1 mg PO [facility] Last Admin: 03/31/20 08:52 Dose: Not Given Documented by: Physical examination: VITAL SIGNS: 97.2, 101, 14, 155/81, 99% on nasal cannula GENERAL: Laying in bed, awake EYES: Pupils equal. Conjunctiva normal. HEENT: External appearance of nose and ears normal, oral cavity grossly normal. NECK: JVD unable to assess; masses not palpable. HEART: First and second heart sounds are normal; no edema. LUNGS: Respiratory rate increased, diminished breath sounds prolonged expiration. ABDOMEN: Soft, nontender, liver spleen not palpable, no masses palpable. Right abdominal incision site healing well with the underlying pain pump PSYCH: Awake alert answer questions INVESTIGATIONS, reviewed in the clinical context: White count 7.2 hemoglobin 11.8 platelets 133 AST 862 ALT 3266 albumin 2.7 Admission testing White count 21.8 hemoglobin 13.6 increased neutrophils potassium 6.4 bun 29 creatinine 4.12 Lactic acid 3.2 troponin I 0.911 AST 1741, ALT 1788 Hepatitis B surface antigen, core IgM antibody, hepatitis C IgG antibody all nonreactive ABG-pH 6.98, pCO2 98, bicarb 23 acetaminophen level less than 10 UA-negative for nitrate and leukoesterase EKG tracing personally reviewed by me-normal sinus rhythm some T-wave changes Computed tomography scan of the abdomen and pelvis-nonspecific Computed tomography scan of the brain-unremarkable Chest x-ray film personally reviewed by me-no obvious infiltrate, some elevations right diaphragm C. difficile-negative COVID 19 PCR not detected Hepatitis A IgM antibody nonreactive Previous testing: renal function is normal in December 2018 Assessment: -Acute metabolic encephalopathy. In the setting of acute renal failure patients on Neurontin [place] Seroquel Xanax Requip and viibryd. Received Narcan -improved -Chronic pain syndrome with a morphine pain pump that for relocated from the spine to the anterior abdominal wall 3 days prior to admission being followed by Dr. bedolla,-morphine dose decreased -Obesity BMI 34.5 -Severe ischemic hepatitis from hypotension improving slowly -Acute kidney injury likely ATN and worsening-started on hemodialysis March 30 -Septic shock and blood pressure dropping down to the 70s systolic. -Chronic L1 compression fracture -Acute hypoxic and hypercapnic respiratory failure responding to BiPAP-improving -Mixed metabolic and respiratory acidosis -Chronic nicotine dependence, patient is a cigarette smoker -Acute COPD exacerbation in a current smoker -Low-grade fever and infection site unknown Plan: Patient getting bronchodilators, ceftriaxone, status post levo fed. Getting ultrafiltration today. Follow
[2020-03-31 15:49] LABS: Allen Test Performed? no
[2020-03-31] MEDS: Vilazodone Hcl [Viibryd] 10 MG Tablet PO SCH (19:28)
[2020-03-31] MEDS: DEXTROSE 5% IN WATER 1,000 ML with SODIUM BICARB (1 MEQ/ML) 150 ML IV SCH (20:53)
--- NOTE | 2020-03-31 22:23 | PN ---
PROGRESS NOTE DATE OF SERVICE: 03/31/2020 REASON FOR FOLLOWUP: Sepsis, source likely abdominal. INTERVAL HISTORY: The patient is currently afebrile. The patient is on a BiPAP. She is breathing slightly comfortably. Denies having any chest pain, cough. No nausea. Some abdominal discomfort. No vomiting or diarrhea. PHYSICAL EXAMINATION: Blood pressure 161/86, pulse 95, temperature 97.7. She is 99% on 3 L nasal cannula. General description is an elderly female lying in bed in no distress. RESPIRATORY SYSTEM: Unlabored breathing with decreased breath sounds at the base. No wheeze. HEART: S1, S2. Regular rate and rhythm. ABDOMEN: Soft. No tenderness. LABS: Hemoglobin 11.8, white count 17.2, BUN of 54, creatinine 5.10. DIAGNOSTIC IMPRESSION AND PLAN: Patient admitted to hospital with low-grade fever, elevated white count, concern for possible abdominal source. Abnormal ultrasound with a question of cholecystitis. Patient is covered with Rocephin; to continue and monitor clinical course closely. MMODL / IJN: [id number] /
[2020-04-01] MEDS: IPRATROPIUM-ALBUTEROL 3 ML NEB INHALATION SCH ×6 (03:12→23:10)
[2020-04-01 04:50] LABS: Basophils % (A) 0 %; Eosinophils % (A) 0 %; HGB 11.3 gm/dL (11.4-16.0); Lymphocytes # (A) 0.6 k/uL (1.0-4.8); Lymphocytes % (A) 5 %; MCH 29.6 pg (25.0-35.0); MCHC 31.3 g/dL (31.0-37.0); MCV 94.5 fL (80.0-100.0); Mean Platelet Volume 8.3; Monocytes # (A) 0.5 k/uL (0-1.0); Monocytes % (A) 4 %; Neutrophils # (A) 11.7 k/uL (1.3-7.7); Neutrophils % (A) 91 %; Platelet Count 101 k/uL (150-450); RBC 3.81 m/uL (3.80-5.40); RDW 15.4 % (11.5-15.5); WBC 12.9 k/uL (3.8-10.6)
[2020-04-01 05:00] LABS: Calcium 7.8 mg/dL (8.4-10.2); Potassium 3.9 mmol/L (3.5-5.1)
[2020-04-01] MEDS: GABAPENTIN 300 MG CAP PO SCH ×2 (06:45→22:51)
[2020-04-01] MEDS: NALOXONE (MDV) 2 MG in SODIUM CHLORIDE 0.9% 250 ML IV SCH ×4 (06:45→10:14)
[2020-04-01] MEDS: NOREPINEPHRINE 4 MG in SODIUM CHLORIDE 0.9% 250 ML IV SCH (06:46)
[2020-04-01] MEDS ORDERED: POTASSIUM CHLORIDE 20 MEQ in WATER FOR INJECTION 1 100ML.BAG IVPB STA (07:10)
--- NOTE | 2020-04-01 07:48 | XR ---
EXAMINATION TYPE: XR chest 1V portable DATE OF EXAM: 04/01/2020 COMPARISON: 03/31/2020 INDICATION: Short of breath TECHNIQUE: Single frontal view of the chest is obtained. FINDINGS: The heart size is normal. The pulmonary vasculature is normal. Minimal pleural effusions may be present. Central venous catheter enters on the left tip in the super ior vena cava region. IMPRESSION: 1. Small bilateral pleural effusions
[2020-04-01] MEDS: hydrALAZINE HCL 20 MG/ML 1 ML VIAL IVP PRN (08:16)
[2020-04-01] MEDS: SODIUM CHLORIDE 0.9% 1,000 ML IV SCH (08:32)
[2020-04-01 09:25] LABS: ABG Base Excess 0.4 mmol/L; ABG HCO3 26 mmol/L (21-25); ABG PCO2 44 mmHg (35-45); ABG PH 7.38 (7.35-7.45); ABG PO2 83 mmHg (83-108); ABG TCO2 27 mmol/L (19-24)
[2020-04-01 09:28] LABS: Allen Test Performed? no
[2020-04-01] MEDS ORDERED: HEPARIN SODIUM,PORCINE 5,000 UNIT/ML 1 ML VIAL ONE (09:50)
[2020-04-01] MEDS: Vilazodone Hcl [Viibryd] 10 MG Tablet PO SCH (10:14)
[2020-04-01] MEDS: HEPARIN SODIUM,PORCINE 5,000 UNIT/ML 1 ML VIAL SQ SCH ×2 (10:20→22:51)
[2020-04-01] MEDS: NICOTINE 21MG/24HR PATCH TRANSDERM SCH (10:20)
--- NOTE | 2020-04-01 10:30 | P.PN ---
Subjective Patient is seen in follow-up for acute kidney injury and hyperkalemia. she was started on hemodialysis in March 30 for oliguria and volume overload. Urine output about 5 mL an hour. Not requiring vasopressors. Potassium level normal. currently on BiPAP. mentation also improved. Vital signs are stable. General: The patient appeared well nourished and normally developed. HEENT: Head exam is unremarkable. Neck is without jugular venous distension. On BiPAP. LUNGS: Breath sounds decreased. HEART: Rate and Rhythm are regular. First and second heart sounds normal. No murmurs, rubs or gallops. ABDOMEN: Soft, nontender. EXTREMITITES: 1+ edema. Objective - Vital Signs Vital signs: Vital Signs Temp 98.3 F 04/01/20 04:00 Pulse 110 H 04/01/20 07:57 Resp 14 04/01/20 07:00 BP 166/81 04/01/20 07:00 Pulse Ox 95 04/01/20 07:00 Intake & Output 03/31/20 04/01/20 04/01/20 18:59 06:59 18:59 Intake Total 750 650 Output Total 2525 40 Balance -1775 610 Weight 105.4 kg Intake: IV 750 650 Dextrose 5% in Water 1, 150 000 ml @ 75 mls/hr IV . [id number] KALLIE with Sodium Bicarb (1 Meq/ml) 150 ml Rx#:[id number] Potassium Chloride 20 meq 100 In Water For Injection 1 100ml.bag @ 50 mls/hr IVPB ONCE STA Rx#: [id number] Sodium Chloride 0.9% 1, 500 650 000 ml @ 50 mls/hr IV . Q20H KALLIE Rx#:[id number] Output: Urine 25 40 Hemodialysis 2500 Other: Voiding Method Indwelling Catheter Indwelling Catheter ABP, PAP, CO, CI - Last Documented Arterial Blood Pressure 178/73 - Labs CBC & Chem 7: 04/01/20 04:35 04/01/20 04:35 Labs: Abnormal Lab Results - Last 24 Hours (Table) 03/31/20 04/01/20 04/01/20 Range/Units 15:44 04:35 04:35 WBC 12.9 H (3.8-10.6) k/uL Hgb 11.3 L (11.4-16.0) gm/dL Plt Count 101 L (150-450) k/uL Neutrophils # 11.7 H (1.3-7.7) k/uL Lymphocytes # 0.6 L (1.0-4.8) k/uL ABG pH 7.34 L (7.35-7.45) ABG pCO2 50 H (35-45) mmHg ABG HCO3 27 H (21-25) mmol/L ABG Total CO2 29 H (19-24) mmol/L ABG O2 Saturation 97.9 H (94-97) % BUN 51 H (7-17) mg/dL Creatinine 4.66 H (0.52-1.04) mg/dL Glucose 117 H (74-99) mg/dL Calcium 7.8 L (8.4-10.2) mg/dL 04/01/20 Range/Units 09:22 WBC (3.8-10.6) k/uL Hgb (11.4-16.0) gm/dL Plt Count (150-450) k/uL Neutrophils # (1.3-7.7) k/uL Lymphocytes # (1.0-4.8) k/uL ABG pH (7.35-7.45) ABG pCO2 (35-45) mmHg ABG HCO3 26 H (21-25) mmol/L ABG Total CO2 27 H (19-24) mmol/L ABG O2 Saturation (94-97) % BUN (7-17) mg/dL Creatinine (0.52-1.04) mg/dL Glucose (74-99) mg/dL Calcium (8.4-10.2) mg/dL Microbiology - Last 24 Hours (Table) 03/28/20 12:09 Blood Culture - Preliminary Blood No Growth after 72 hours Assessment and Plan Plan: assessment: 1. Oliguric acute kidney injury secondary to ATN secondary to severe sepsis/hypotension. creatinine peaked at 5.1 this admission. Started on hemodialysis March 30. No evidence of hydronephrosis noted on ultrasound. 2. Acute hypercapnic respiratory failure. 3. Hyperkalemia secondary to acute kidney injury, arb, and potassium supplementation. resolved. 4. Severe sepsis maintained on antibiotics. Cultures pending. 5. Transaminitis likely from hypoperfusion. Hepatitis panel negative. aceta minophen level not high. improving. 6. Metabolic acidosis secondary to acute kidney injury. improved postdialysis. 7. Volume overload. improving with ultrafiltration. Plan: currently seen while undergoing hemodialysis - trying for 3 L ultrafiltration. another treatment tomorrow. status post IV Lasix March 31 with no response and urine output. Hep-Lock IV fluids. Avoid nephrotoxins.
--- NOTE | 2020-04-01 12:17 | P.PN ---
Subjective Progress Note Date: 04/01/20 64-year-old female patient presented to the ED for shortness of breath and difficulty breathing. The patient has chronic pain maintained on a morphine pump on outpatient basis and she hasn't followed up with Dr. Roberts on outpatient basis. Apparently the pain pump was replaced few days back. She is also on a combination of Xanax, gabapentin a [place] in addition to Seroquel. . The patient also has history of hypertension, previous history of CVA, hyperlipidemia, acid reflux and smoking Note that the patient came in for shortness of breath. She denied having any chest pain or palpitation. She denies having any nausea vomiting or abdominal pain. She denied having any headache. No new injury or trauma. No new areas of pain. Note that her initial white cell count was 21.8 and subsequent white cell count was 24.0. The patient had a normal platelet count and a normal hemoglobin of 13.8. Coagulation profile was within normal limits. Nevertheless, the patient was found to be in acute kidney injury. The patient's creatinine was up to 4.12 with a BUN of 29 and the patient's potassium was at 6.4 with a sodium level of 133. Anion gap was only a 10. The lactic acid level was at 3.2 with a calcium level of 7.6. She had an acute hepatocellular injury with a AST of 1741 that subsequently came up to 10/29/2001. She also had a ALT of 1788 and subsequently came at 4690. Troponin was at 0.9. Total protein was 6.2. UA showed +1 protein and +1 glucose. The chest x-ray done in the ED showed no acute cardiopulmonary process. CAT scan of the brain showed no acute process and CAT scan of the abdomen and pelvis done showed a small right-sided pleural effusion and some mild compressive atelectasis of the right lung base. Minimal amount of free fluid in the pelvis. Otherwise negative. EKG was in normal sinus rhythm and there were no acute EKG changes related to hyperkalemia. There is some low voltage EKG and T-wave abnormalities throughout. Note that the patient was treated for the hyperkalemia. The patient was given calcium gluconate and the patient was also given D50 insulin combination and bicarb pushes. The patient was having a low-grade fever of 100.0. The patient was given empiric antibiotic coverage and the patient was covered with a combination of Rocephin and vancomycin. Currently on IV fluids at the rate of 130 mL an hour. The patient was initially admitted to the medical floor and following that the patient was found to be apneic and altered mentally. She was given Narcan. She got transferred to the intensive care unit. She was given IV fluid boluses. The patient started on BiPAP after the blood gases showed an acute hypercapnic respiratory failure. The blood gases was done that showed a pH of 6.98 with a pCO2 of 98 and pO2 of 90 and this was on FiO2 of 40%. the patient is currently on a BiPAP and she is on a Narcan drip at 0.6 mg/hour. On today's evaluation of 03/29/2020, the patient is still lethargic. The patient was taken off the Narcan drip at around midnight and the patient was BiPAP. Nevertheless, the Patient Was Still Hypoventilating. I Repeated the Blood Gases This Morning and Showed a pH of 7.09 with a PCO2 of 71 and PO2 of 73. Based on That, I Restarted the Narcan Drip. I Contacted the Anesthesiologist to Evaluate the Pain Pump. Apparently the Patient Was Taken Total of 7.9 Mg of Morphine through the pump and we did a dose reduction down to 7.0 mg and according to the pain specialist, Dr. Lacy this could've affected the patient's breathing causing significant hypoventilation. The patient was kept on a BiPAP accordingly. The patient was switched to a BiPAP level of 16/5 cm of water and FiO2 28%. A repeat blood gas showed a pH of 7.19 with a pCO2 of 50 and pO2 of 90. The patient was much more alert and awake yet BiPAP dependent. IV fluids in the form of normal saline at the rate of 130 mL an hour. Cardiac rhythm is sinus. Further workup has been ordered including an ultrasound the kidneys and the liver and addition to a urine drug screen. An additional 1 bolus of fluid will be given to the patient today. Tylenol levels have been less than 10. On 03/30/2020, the patient is still doing poorly. She is lethargic and somnolent while wearing the BiPAP at a pressure of 16/5 cm of water. A repeat blood gases was done this morning the patient continues to have a combination of respiratory and metabolic acidosis. Specifically the pH was 7.21 with a pCO2 of 46 and pO2 of 92. The patient's chest x-ray was also showing some increased interstitial edema. The patient was aggressively resuscitated IV fluids and the patient is in a positive fluid balance of 4.5 L for yesterday and 3.1 L for the day before. In any rate, the patient has not produced significant urine output and urine output is noted of 5-10 mL an hour. On her blood work, the patient become acidotic and the electrolytes today shows her serum bicarbonate was 17 with an anion gap of 11. The BNP is 53 with a creatinine of 4.8 indicating further worsening of the renal function tests. As for the liver function tests, they are improving. The patient was in a shock liver. AST is down to 1794 and ALT is down to 3826 and alkaline phosphatase is within normal at 93. Serum ammonia level is at 54. The patient is off the Narcan drip for now. I asked her anesthesiologist to reevaluate the pain infusion knowing that the morphine pump was used on to 7 mg on a daily basis based on yesterday's evaluation and I'm hoping that we can further cut it down as the patient is a component of respiratory acidosis which could be related to opiates in general. I also discussed the case with nephrology. It's likely the patient will need dialysis if the patient is showing signs of fluid overload and addition to a very low urine output. Noted the patient was given a dose of Lasix 80 mg IV push without much benefit. Based on today's blood work, stress this patient to D5 sodium bicarbonate infusion at the rate of 75 mL an hour. The patient remains on empiric antibiotic coverage with IV Rocephin. A triple lumen catheter was inserted. The CVP was around 14. Do not think at was also inserted. 03/31/2020, the patient is being seen in follow-up. She remains a bit obtunded. Yet she is arousable. Profoundly weak especially in the upper and lower extremities. I noted that she was on the BiPAP throughout the night of the pressure of 16/5 cm of water with an FiO2 of 28%. She was also on a backup rate of 14. She remains on the same respiratory throughout the night and she hasn't been able to trigger the BiPAP machine. As such, I'm still concerned of the possibility of ongoing narcotics causing respiratory suppression. I repeated the blood gases this morning and there was improvement in the acid base status. The patient's pH was at 7.36 with a pCO2 of 45 and a pO2 of 92. She was still r eceiving a bicarb infusion at the rate of 150 mL an hour. Note that the serum bicarbs up to 26. Renal function is still impaired with a BUN of 54 and creatinine of 5.1. The patient underwent hemodialysis yesterday with a removal of 1 L of fluid and another session of hemodialysis will be done today. The patient is on empiric antibiotic coverage with IV Rocephin. She is also on a low dose norepinephrine for hemodynamic support as needed. Currently she is off the pressors. She was seen by nephrology. Another dose of 80 mg IV Lasix push was given to improve her urine output. The neck fluid balance over the past 24 hours is in the order of 1.4 L positive. The chest x-ray from today, shows hilar and mediastinal structures are within normal limits. There is by basilar infiltrates that are essentially unchanged. There is also scattered senescent parenchymal change. No other abnormalities have been noted. The surgical wound site over the abdominal wall is dry clean and intact. Note that yesterday were able to The Patient's Morphine Infusion to a Total of 5 Mg on a Daily Basis. 04/01/2020, the patient is much more awake and alert compared to yesterday. The patient is spending all night on BiPAP and currently she is taken off the BiPAP and the patient was switched to 3 L of oxygen by nasal cannula. She is able to communicate and she was oriented to time and place. She was on a BiPAP at a pressure of 16/5 cm of water and FiO2 of 28% and the patient was switched to 3 L of oxygen with a pulse ox of 92% and the patient's blood gas showed a pH of 7.38 with a pCO2 of 44 and pO2 of 83. Note that the morphine pain pump has been reduced down to 3.5 mg on a daily basis. The patient underwent hemodialysis yesterday. Despite all this, she continues to have some third spacing edema in all 4 extremities. Urine output is still low and the patient remains on normal saline at rate of 50 mL an hour. Her last hemodialysis from yesterday was completed with a total of 2.5 L of ultrafiltration. The blood work from today showed a bicarb of 28. The BUN is a 51 with a creatinine of 4.66. Shock liver was improving and the patient's liver function is gradually on the decline. Her ammonia level was down to 34. Her white cell count is down to 12.9. Platelet count is at 11. Hemoglobin stable at 11.3. She is receiving empiric antibiotic coverage with IV Rocephin. The patient is also on no pressors. Objective - Vital Signs Vital signs: Vital Signs Temp 97.8 F 04/01/20 08:00 Pulse 112 H 04/01/20 12:04 Resp 14 04/01/20 11:00 BP 130/68 04/01/20 11:00 Pulse Ox 94 L 04/01/20 11:00 Intake & Output 03/31/20 04/01/20 04/01/20 18:59 06:59 18:59 Intake Total 750 650 244 Output Total 2525 40 11 Balance -1775 610 233 Weight 105.4 kg Intake: IV 750 650 184 Dextrose 5% in Water 1, 150 000 ml @ 75 mls/hr IV . [id number] KALLIE with Sodium Bicarb (1 Meq/ml) 150 ml Rx#:[id number] Potassium Chloride 20 meq 100 In Water For Injection 1 100ml.bag @ 50 mls/hr IVPB ONCE STA Rx#: [id number] Sodium Chloride 0.9% 1, 500 650 160 000 ml @ 50 mls/hr IV . Q20H KALLIE Rx#:[id number] pressure bag for A.line & 24 CVP at 3ml/hr each Oral 60 Output: Urine 25 40 11 Hemodialysis 2500 Other: Voiding Method Indwelling Catheter Indwelling Catheter ABP, PAP, CO, CI - Last Documented Arterial Blood Pressure 146/57 - Exam Gen. appearance the patient is awake and alert on today's of oxygen by nasal cannula Head exam was generally normal. There was no scleral icterus or corneal arcus. Mucous membranes were moist. Neck was supple and without jugular venous distension, thyromegaly, or carotid bruits. Carotids were easily palpable bilaterally. There was no adenopathy. Lungs sounds are diminished bilaterally otherwise clear. There is no wheezes or rhonchi or any crackles. Cardiac exam revealed the PMI to be normally situated and sized. The rhythm was regular and no extrasystoles were noted during several minutes of auscultation. The first and second heart sounds were normal and physiologic splitting of the second heart sound was noted. There were no murmurs, rubs, clicks, or gallops. Abdominal exam revealed normal bowel sounds. The abdomen was soft, non-tender, and without masses, organomegaly, or appreciable enlargement of the abdominal aorta. The incision over the right abdominal wall is dry clean and intact and there is no active drainage at this point in time. [place] are all in place. Examination of the extremities revealed easily palpable radial, femoral and pedal pulses. There was no cyanosis, clubbing or and the patient is developing some edema in all 4 extremities more so in the upper extremities bilaterally. Examination of the skin revealed no evidence of significant rashes, suspicious appearing nevi or other concerning lesions. Neurologically the patient is awake and communicating. She is moving all 4 extremities upon stimulation painful stimuli. No focal neurological deficit at this point in time. - Labs CBC & Chem 7: 04/01/20 04:35 04/01/20 04:35 Labs: Abnormal Lab Results - Last 24 Hours (Table) 03/31/20 04/01/20 04/01/20 Range/Units 15:44 04:35 04:35 WBC 12.9 H (3.8-10.6) k/uL Hgb 11.3 L (11.4-16.0) gm/dL Plt Count 101 L (150-450) k/uL Neutrophils # 11.7 H (1.3-7.7) k/uL Lymphocytes # 0.6 L (1.0-4.8) k/uL ABG pH 7.34 L (7.35-7.45) ABG pCO2 50 H (35-45) mmHg ABG HCO3 27 H (21-25) mmol/L ABG Total CO2 29 H (19-24) mmol/L ABG O2 Saturation 97.9 H (94-97) % BUN 51 H (7-17) mg/dL Creatinine 4.66 H (0.52-1.04) mg/dL Glucose 117 H (74-99) mg/dL Calcium 7.8 L (8.4-10.2) mg/dL 04/01/20 Range/Units 09:22 WBC (3.8-10.6) k/uL Hgb (11.4-16.0) gm/dL Plt Count (150-450) k/uL Neutrophils # (1.3-7.7) k/uL Lymphocytes # (1.0-4.8) k/uL ABG pH (7.35-7.45) ABG pCO2 (35-45) mmHg ABG HCO3 26 H (21-25) mmol/L ABG Total CO2 27 H (19-24) mmol/L ABG O2 Saturation (94-97) % BUN (7-17) mg/dL Creatinine (0.52-1.04) mg/dL Glucose (74-99) mg/dL Calcium (8.4-10.2) mg/dL Microbiology - Last 24 Hours (Table) 03/28/20 12:09 Blood Culture - Preliminary Blood No Growth after 72 hours Assessment and Plan Plan: 1 acute hypercapnic respiratory failure, CO2 narcosis , Likely secondary to narcotic overdose probably related to increased dosage of the morphine through the pain pump. Nevertheless, the patient is having a lot of metabolic de rangements that can affect her mental status. After being supported with BiPAP and reducing the morphine pump infusion rate to 3.5 mg and after adjusting the metabolic disturbances, the patient seems to be improving and today's evaluation the patient's acid base status is improved considerably and the patient is much more awake and communicating and her level of alertness has improved considerabl y. 2 acute kidney injury, with oligoria him and not responding to fluid challenges. The patient is not responding to Lasix. The patient is undergoing dialysis and her last session of dialysis was yesterday with a total of 2.5 L of fluid being infiltrated. 3 acute hyperkalemia, recovered 4 mild lactic acidosis, improved 5 acute shock liver, and the patient's liver functions insulin improving, the coagulation profile is within normal limits. 6 chronic pain and the patient has a morphine pain pump in place 7 previous history of CVA without any major neurologic deficits 8 hypertension 9 previous history of syncope 10 chronic back pain with previous history of back surgery in addition to degenerative spine disease in addition to spondylolisthesis and compression fracture 11 smoker 12 hypertension 13 hyperlipidemia 14 acid reflux 15 acute febrile illness, and the patient is currently on empiric antibiotic coverage with a combination of Rocephin and vancomycin. No clear source of infection at this point in time. Plan The patient is undergoing daily dialysis. The patient will try for another 3 L of ultrafiltration. Arterial line will be discontinued. The patient will be taken off the BiPAP on 3 L of oxygen by nasal cannula. IV fluids to KVO. Continue IV Rocephin. Monitor mental status. Monitor renal function and urine output. Repeat liver function tests for tomorrow. We'll continue to follow. She will need stay in the intensive care unit for another 24 hours.
--- NOTE | 2020-04-01 12:54 | CDI ---
Documentation Clarification Form Date: 04/01/2020 12:08:00 PM From: Raisa Daniels RN, CCDS Admit Date: 03/28/2020 02:15:00 PM Patient Name: Sharmila Rios Visit Number: [id number] Discharge Date: ATTENTION: The Clinical Documentation Specialists (CDI) and [facility] Coding Staff appreciate your assistance in clarifying documentation. Please respond to the clarification below the line at the bottom and electronically sign. The CDI & [facility] Coding staff will review the response and follow-up if needed. Please note: Queries are made part of the Legal Health Record. If you have any questions, please contact the author of this message via ITS. Dr. Nikki Allen The patient presented with the following: difficulty breathing, altered mental status. Supply and demand mismatch is documented in your consult on 03/28. Please provide further specificity of the diagnosis. History/Risk Factors: Heart failure Chronic back pain, chronic tobacco use Clinical Indicators: 64-year-old female present to ED on 03/28 with symptoms of dyspnea, confused at times. 03/28 Lab findings: WBC 21.8 Sodium 133, Potassium 6.4, BUN 29, Cr 4.12, Lactic acid 3.2, 3.0 Troponin I 0911 03/28 ALT 1788, AST 1741 03/28 Chest x-ray questionable right lower lobe infiltrate 03/28 EKG: sinus tachycardia @ 102 bpm, T-wave inversion anteriorly, cannot exclude ischemia (per cardiology assessment 03/28) Vital Signs:03/28 84/55 103 22 100 95 % 03/28 Cardiology consult: milt troponin elevation, doubt an ischemic event most likely related to her renal failure and her febrile episode and presenting supply demand mismatch. The patient has no symptoms of chest pain. Treatment: ICU/Telemetry monitoring Monitor O2 Saturations (titrate) Monitor Labs: CBC, Lytes, BUN, CR, .9NS 1/lL IV bolus x6 Sodiuim Bicarb 8.4 % 50 ml sta 03/28 Sodium Bicarbonate 8.4 % 100 ml IV once sta 03/28 Levofed drip (per orders 03/29 ECHO: LV size, wall thickness and systolic function are normal, with an EF greater than 55 % Narcan Drip 2 mg @76.5 mg hr (03/28-04/01) Rocephin 1 gm IV q 24 hrs In your professional opinion, can you please further clarify supply demand mismatch? Type 2 CT related to acute kidney injury Demand ischemia without CT XXX Other, please specify Unable to determine (Last Revision: September 2017) MTDD
--- NOTE | 2020-04-01 14:53 | P.PN ---
Progress Note - Text Progress Note Date: 04/01/20 Chief Complaint: Difficulty breathing Hospital course: Patient is 64-year-old female, was family doctor is Dr. pam Baker. Chronic stable medical conditions include chronic pain currently on a morphine pump , hypertension, CHF, and prior stroke who presented to the emergency department . Per the ER report patient is having difficulty breathing. Daughter called and found the same. Patient had a pain pump replaced 3 days ago. She follows with Dr. Hutton for pain pump. 3 days also she states she started having a fever. She has long-standing smoker. Baseline cough. No increased shortness of breath. Did receive some Narcan in the ER as she was a bit lethargic. When she got to the floor she again became lethargic blood gases sitting up pH of 6.88. It seemed to be a mixed respiratory and metabolic acidosis. Patient was therefore moved to the ICU with the orders for BiPAP. When I came to the ICU patient was using a BiPAP and was able to answer questions. She had a temperature of 100 the ER. On the floor she dropped respiratory rate also. She is put on a Narcan drip. Patient admitted with-metabolic encephalopathy likely from pain medications, acute hypoxic and hypercapnic respiratory failure from medications, acute kidney injury, acute ischemic hepatitis, septic shock, mixed metabolic and respiratory acidosis. Admitted ICU. Patient is put on a BiPAP. IV fluids. Levo fed. Bicarbonate. I spoke to Dr. Agee from neurology last night. Patient had his pain pump relocated from the spine to the anterior abdominal wound. It is intrathecal. Dose of morphine was not changed. Patient also was placed on Narcan drip. To which she responded well. Started on hemodialysis March 30. Admitted with-acute metabolic encephalopathy felt to be multifactorial, severe ischemic hepatitis from hypotension, acute kidney G likely ATN started on hemodialysis, septic shock, acute hypoxic and hypercapnic respiratory failure, metabolic and respiratory acidosis, COPD exacerbation. Empirically put on antibiotics source of infection unclear. Morphine dose and the pain pump decreased by Dr. Vee. Today-starting a clear liquid diet. Laying in bed. Comfortable. Daughter at the bedside. hemodialyzed today. Pain controlled Review of systems: Was done for constitutional, cardiovascular, GI, pulmonary. relevant finding as above Active Medications Albuterol/Ipratropium (Ipratropium-Albuterol 3 Ml Neb) 3 ml INHALATION RT-Q2H PRN PRN Reason: Shortness Of Breath Or Wheezing Albuterol/Ipratropium (Ipratropium-Albuterol 3 Ml Neb) 3 ml INHALATION RT-Q4H [facility] Last Admin: 04/01/20 11:54 Dose: 3 ml Documented by: Clonidine (Clonidine Hcl 0.1 Mg Tab) 0.1 mg PO BID [facility] Gabapentin (Gabapentin 300 Mg Cap) 300 mg PO HS [facility] Last Admin: 04/01/20 06:45 Dose: Not Given Documented by: Heparin Sodium (Porcine) (Heparin Sodium,Porcine 5,000 Unit/Ml 1 Ml Vial) 5,000 unit SQ Q12HR [facility] Last Admin: 04/01/20 10:20 Dose: 5,000 unit Documented by: Hydralazine HCl (Hydralazine Hcl 20 Mg/Ml 1 Ml Vial) 20 mg IVP Q4HR PRN PRN Reason: Blood Pressure - High Last Admin: 04/01/20 08:16 Dose: 20 mg Documented by: Ceftriaxone Sodium 1 gm/ (Sodium Chloride) 50 mls @ 100 mls/hr IVPB Q24HR [facility] Last Admin: 04/01/20 13:32 Dose: 100 mls/hr Documented by: Naloxone HCl (Naloxone 0.4 Mg/Ml 1 Ml Vial) 0.2 mg IVP Q2M PRN PRN Reason: Opioid Reversal Last Admin: 03/28/20 17:23 Dose: 0.2 mg Documented by: Nicotine (Nicotine 21mg/24hr Patch) 1 patch TRANSDERM DAILY [facility] Last Admin: 04/01/20 10:20 Dose: 1 patch Documented by: Vilazodone Hcl [ Viibryd] 10 Mg Tablet 10 mg PO DAILY [facility] Last Admin: 04/01/20 10:14 Dose: Not Given Documented by: Ropinirole HCl (Ropinirole Hcl 1 Mg Tab) [address] [facility] Last Admin: 04/01/20 06:45 Dose: Not Given Documented by: Physical examination: VITAL SIGNS: 97.8, 106, 14, 150/79, 92% on 3 L GENERAL: Laying in bed, awake, comfortable EYES: Pupils equal. Conjunctiva normal. HEENT: External appearance of nose and ears normal, oral cavity grossly normal. NECK: JVD unable to assess; masses not palpable. HEART: First and second heart sounds are normal; no edema. LUNGS: Respiratory rate increased, diminished breath sounds ABDOMEN: Soft, nontender, liver spleen not palpable, no masses palpable. Right abdominal incision site healing well with the underlying pain pump PSYCH: Awake alert answer questions INVESTIGATIONS, reviewed in the clinical context: White count 12.9 hemoglobin 11.3 potassium 3.9 creatinine 4.66 Admission testing White count 21.8 hemoglobin 13.6 increased neutrophils potassium 6.4 bun 29 creatinine 4.12 Lactic acid 3.2 troponin I 0.911 AST 1741, ALT 1788 Hepatitis B surface antigen, core IgM antibody, hepatitis C IgG antibody all nonreactive ABG-pH 6.98, pCO2 98, bicarb 23 acetaminophen level less than 10 UA-negative for nitrate and leukoesterase EKG tracing personally reviewed by me-normal sinus rhythm some T-wave changes Computed tomography scan of the abdomen and pelvis-nonspecific Computed tomography scan of the brain-unremarkable Chest x-ray film personally reviewed by me-no obvious infiltrate, some elevations right diaphragm Abdominal ultrasound-taken gallbladder wall suggestive pericholecystic fluid, CBD 7 mm C. difficile-negative COVID 19 PCR not detected Hepatitis A IgM antibody nonreactive -Blood culture negative Previous testing: renal function is normal in December 2018 Assessment: -Acute metabolic encephalopathy. In the setting of acute renal failure patients on Neurontin Johnson Seroquel Xanax Requip and viibryd. Received Narcan -improved -Chronic pain syndrome with a morphine pain pump that for relocated from the spine to the anterior abdominal wall 3 days prior to admission being followed by Dr. bedolla,-morphine dose decreased -Obesity BMI 34.5 -Severe ischemic hepatitis from hypotension improving slowly -Acute kidney injury likely ATN and worsening-started on hemodialysis March 30 -Septic shock and blood pressure dropping down to the 70s systolic. -Chronic L1 compression fracture -Acute hypoxic and hypercapnic respiratory failure responding to BiPAP-improving -Mixed metabolic and respiratory acidosis -Chronic nicotine dependence, patient is a cigarette smoker -Acute COPD exacerbation in a current smoker -Low-grade fever and infection site questionable cholecystitis-on antibiotics. Patient has been unstable for any surgery. -Essential hypertension uncontrolled Plan: Continue with bronchodilators, ceftriaxone, . Continue with hemodialysis. Patient does not want to take her Viibryd. Diet being advanced as started. Di scussed with the patient and daughter the bedside. Patient's pain is well controlled. Will start the patient on Catapres. 0.1 mg twice a day.
[2020-04-01] MEDS: cloNIDine HCL 0.1 MG TAB PO SCH ×2 (15:17→22:50)
--- NOTE | 2020-04-01 15:50 | P.GSCN ---
History of Present Illness Consult date: 04/01/20 History of present illness: CHIEF COMPLAINT: Possible narcotic overdose from pain pump HISTORY OF PRESENT ILLNESS: This is a 64-year-old with a known history of chronic pain maintained on a morphine pump with Dr. Roberts. She also has a history of hypertension, CVA hyperlipidemia GERD and nicotine dependence. Patient presented to the emergency room with shortness of breath. She is brought into the regular medical floor A team was called due to drop in her oxygen saturation. And they felt it was related to her pain pump that has been replaced recently. She was given Narcan and did awake. She was started Narcan drip and transferred to the ICU. Patient also has been an acute kidney injury that that did not respond to Lasix and his been requiring hemodialysis. And she is scheduled for her third treatment of hemodialysis tomorrow. Patient also had required BiPAP for respiratory failure. She is currently on 3 L nasal cannula satting at 96%. Patient did have a fever and elevated white count on admission as well as elevated LFTs. She had an abdominal ultrasound on 03/29/2020 that showed thickening gallbladder wall suggesting pericholecystic fluid correlate for cholecystitis. Common bile duct measures slightly dilated at 7 mm. Distal CBD obstruction not excluded. She is currently afebrile. She denies any abdominal pain. PAST MEDICAL HISTORY: See list. PAST SURGICAL HISTORY: See list. MEDICATIONS: See list. ALLERGIES: See list. SOCIAL HISTORY: No illicit drug use. REVIEW OF SYSTEMS: CONSTITUTIONAL: Denies fever or chills. HEENT: Denies blurred vision, vision changes, or eye pain. Denies hemoptysis CARDIOVASCULAR: Denies chest pain or pressure. RESPIRATORY: No shortness of breath. GASTROINTESTINAL: See HPI for pertinent findings HEMATOLOGIC: Denies bleeding disorders. GENITOURINARY: Denies any blood in urine or increased urinary frequency. SKIN: Denies pruitis. Denies rash. PHYSICAL EXAM: VITAL SIGNS: Reviewed GENERAL: Well-developed in no acute distress. HEENT: No sclera icterus. Extraocular movements grossly intact. Moist buccal mucosa. Head is atraumatic, normocephalic. No nasal drainage. ABDOMEN: Soft. Nondistended nontender NEUROLOGIC: Alert and oriented. Cranial nerves II through XII grossly intact. Extremities: Patient has some cyanosis of the fingertips on her left hand LABORATORY DATA: WBC 12.9 hemoglobin 11.3 creatinine 4.66 AST 862 ALT 3266 IMAGING: abdominal ultrasound on 03/29/2020 that showed thickening gallbladder wall suggesting pericholecystic fluid correlate for cholecystitis. Common bile duct measures slightly dilated at 7 mm. Distal CBD obstruction not excluded. ASSESSMENT: 1. Possible cholecystitis with Gallbladder wall thickening noted on abdominal ultrasound 2. Acute hypercapnic respiratory failure secondary to narcotic overdose due to patient's morphine pain pump 3. Acute kidney injury requiring hemodialysis 4. Lactic acidosis improved 5. Acute shocked liver 6. History of chronic pain with chronic back pain and on morphine pain pump 7. History of CVA PLAN: -Discussed case with Dr. Linares who reports that patient is not medically stable to proceed with any surgery at this time -Continue to observe -Continue supportive care -Continue ICU management -Continue dialysis per nephrology -Continue antibiotics per infectious disease Thank you for this consultation Physician Industrial Machine Assembler note has been reviewed by physician. Signing provider agrees with the documented findings, assessment, and plan of care. Past Medical History Past Medical History: Heart Failure, CVA/TIA, Hypertension, Osteoarthritis (OA), Syncope Additional Past Medical History / Comment(s): chronic back pain- has morphine pain pump implanted right abdomen., uses cane/walker prn., hx cva (pt did not know), syncope with hx of falls- states several concusions, fx spine 2018 MRI of the lumbar spine that was done in 2018 showed degenerative disc disease, facet arthropathy, spondylolisthesis, L1 endplate compression fracture without any significant spinal stenosis and the patient had a indwelling stimulator lead. , states swelling lower extremities., gastritis, having" burning in stomach, gas and change in stools", usually eat once daily. , states she broke 4 toes last week. History of Any Multi-Drug Resistant Organisms: None Reported Past Surgical History: Back Surgery Additional Past Surgical History / Comment(s): laproscopic surgery (for miscarriage), back injections Past Anesthesia/Blood Transfusion Reactions: No Reported Reaction Past Psychological History: Anxiety, Bipolar, Depression Smoking Status: Current some day smoker Past Alcohol Use History: None Reported Additional Past Alcohol Use History / Comment(s): smokes 1 1/2 ppd, smoking on and off since she was 24 yrs old. Past Drug Use History: None Reported - Past Family History Father Family Medical History: Cancer, Diabetes Mellitus Mother Family Medical History: Cancer Brother(s) Family Medical History: Cancer Additional Family Medical History / Comment(s): agent orange Medications and Allergies Home Medications Medication Instructions Recorded Confirmed Type HYDROcodone/APAP 10-325MG [[place] 1 tab PO TID PRN 02/12/17 03/28/20 History 10-325] Atorvastatin Calcium [Lipitor] 20 mg PO DAILY 09/02/18 03/28/20 History Ergocalciferol (Vitamin D2) 50,000 unit PO [place] 09/02/18 03/28/20 History [Drisdol] hydrOXYzine HCL [Atarax] 10 mg PO TID PRN #12 tab 11/15/18 03/28/20 Rx Cyanocobalamin (Vitamin B-12) 1,000 mcg PO DAILY 05/27/19 03/28/20 History [Vitamin B-12] Gabapentin [Neurontin] 300 mg PO TID 05/27/19 03/28/20 History Irbesartan [Avapro] 75 mg PO BID 05/27/19 03/28/20 History Morphine/Bupivacaine Pump 0 ml .ROUTE CONTINUOUS 05/27/19 03/28/20 History QUEtiapine [SEROquel] 100 mg PO HS 05/27/19 03/28/20 History Sucralfate [Carafate] 2 gm PO BID 05/27/19 03/28/20 History ALPRAZolam [Xanax] 0.5 mg PO TID PRN 03/28/20 03/28/20 History Furosemide [Lasix] 40 mg PO DAILY 03/28/20 03/28/20 History Potassium Chloride ER [K-Dur 10] 10 meq PO DAILY 03/28/20 03/28/20 History Vilazodone HCl [Viibryd] 10 mg PO DAILY 03/28/20 03/28/20 History rOPINIRole HCL [Requip] 1 mg PO HS 03/28/20 03/28/20 History Allergies Allergy/AdvReac Type Severity Reaction Status Date / Time Sulfa (Sulfonamide Allergy Severe Rash/Hives, Verified 03/28/20 14:32 Antibiotics) N & V, IRREGULAR HEART BEAT. aspirin Allergy IRREGULAR Verified 03/28/20 14:32 HEART BEAT, N & V, HIVES Penicillins Allergy Unknown Verified 10/04/20 14:32 Surgical - Exam Vital Signs Temp Pulse Resp BP Pulse Ox 100 F H 103 H 22 84/55 95 03/28/20 11:11 03/28/20 11:11 03/28/20 11:11 03/28/20 11:11 03/28/20 11:11 Results - Labs 04/01/20 04:35 04/01/20 04:35 Abnormal Lab Results - Last 24 Hours (Table) 03/31/20 04/01/20 04/01/20 Range/Units 15:44 04:35 04:35 WBC 12.9 H (3.8-10.6) k/uL Hgb 11.3 L (11.4-16.0) gm/dL Plt Count 101 L (150-450) k/uL Neutrophils # 11.7 H (1.3-7.7) k/uL Lymphocytes # 0.6 L (1.0-4.8) k/uL ABG pH 7.34 L (7.35-7.45) ABG pCO2 50 H (35-45) mmHg ABG HCO3 27 H (21-25) mmol/L ABG Total CO2 29 H (19-24) mmol/L ABG O2 Saturation 97.9 H (94-97) % BUN 51 H (7-17) mg/dL Creatinine 4.66 H (0.52-1.04) mg/dL Glucose 117 H (74-99) mg/dL Calcium 7.8 L (8.4-10.2) mg/dL 04/01/20 Range/Units 09:22 WBC (3.8-10.6) k/uL Hgb (11.4-16.0) gm/dL Plt Count (150-450) k/uL Neutrophils # (1.3-7.7) k/uL Lymphocytes # (1.0-4.8) k/uL ABG pH (7.35-7.45) ABG pCO2 (35-45) mmHg ABG HCO3 26 H (21-25) mmol/L ABG Total CO2 27 H (19-24) mmol/L ABG O2 Saturation (94-97) % BUN (7-17) mg/dL Creatinine (0.52-1.04) mg/dL Glucose (74-99) mg/dL Calcium (8.4-10.2) mg/dL Microbiology - Last 24 Hours (Table) 03/28/20 12:09 Blood Culture - Preliminary Blood No Growth after 96 hours Diabetes panel 04/01/20 Range/Units 04:35 Sodium 138 (137-145) mmol/L Potassium 3.9 (3.5-5.1) mmol/L Chloride 104 (98-107) mmol/L Carbon Dioxide 28 (22-30) mmol/L BUN 51 H (7-17) mg/dL Creatinine 4.66 H (0.52-1.04) mg/dL Glucose 117 H (74-99) mg/dL Calcium 7.8 L (8.4-10.2) mg/dL Calcium panel 04/01/20 Range/Units 04:35 Calcium 7.8 L (8.4-10.2) mg/dL Pituitary panel 04/01/20 Range/Units 04:35 Sodium 138 (137-145) mmol/L Potassium 3.9 (3.5-5.1) mmol/L Chloride 104 (98-107) mmol/L Carbon Dioxide 28 (22-30) mmol/L BUN 51 H (7-17) mg/dL Creatinine 4.66 H (0.52-1.04) mg/dL Glucose 117 H (74-99) mg/dL Calcium 7.8 L (8.4-10.2) mg/dL Adrenal panel 04/01/20 Range/Units 04:35 Sodium 138 (137-145) mmol/L Potassium 3.9 (3.5-5.1) mmol/L Chloride 104 (98-107) mmol/L Carbon Dioxide 28 (22-30) mmol/L BUN 51 H (7-17) mg/dL Creatinine 4.66 H (0.52-1.04) mg/dL Glucose 117 H (74-99) mg/dL Calcium 7.8 L (8.4-10.2) mg/dL
--- NOTE | 2020-04-01 21:54 | PN ---
PROGRESS NOTE DATE OF SERVICE: 04/01/2020 REASON FOR FOLLOWUP: Leukocytosis, possible abdominal source. INTERVAL HISTORY: The patient is afebrile. The patient is feeling better, breathing slightly comfortably. No chest pain. Occasional cough. Some abdominal discomfort now. Nausea but no vomiting and no diarrhea. PHYSICAL EXAMINATION: Blood pressure 138/79 with a pulse of 112, temperature 98.4. She is 92% on 3 L nasal cannula. General description is a middle-aged female lying in bed in no distress. RESPIRATORY SYSTEM: Unlabored breathing with decreased breath sounds at the base. No wheeze. HEART: S1, S2. Regular rate and rhythm. ABDOMEN: Soft. Mild tenderness. No guarding or rigidity. LABS: Hemoglobin is 11.3, white count 12.9, creatinine 4.66. Blood culture has been negative. DIAGNOSTIC IMPRESSION AND PLAN: Patient with elevated white count and low-grade fever on admission to hospital, multifactorial, in this patient who did have elevated liver enzymes, possible shock liver. However, she did have abnormal ultrasound of the liver and gallbladder, for which the patient has been evaluated by Surgery. The patient's white count responded to Rocephin; to continue and monitor her clinical course closely. MMODL / IJN: [id number] /
[2020-04-02] MEDS: IPRATROPIUM-ALBUTEROL 3 ML NEB INHALATION SCH ×6 (03:09→23:43)
[2020-04-02 05:47] LABS: Albumin 2.7 g/dL (3.5-5.0); Calcium 8.1 mg/dL (8.4-10.2); Potassium 4.1 mmol/L (3.5-5.1); Total Bilirubin 0.6 mg/dL (0.2-1.3); Total Protein 4.8 g/dL (6.3-8.2)
[2020-04-02 06:31] LABS: HCT 33.3 % (34.0-46.0); HGB 10.6 gm/dL (11.4-16.0); Hypochromasia Slight; MCH 31.3 pg (25.0-35.0); MCV 97.9 fL (80.0-100.0); Mean Platelet Volume 8.2; RDW 15.2 % (11.5-15.5); WBC 9.8 k/uL (3.8-10.6)
[2020-04-02 07:05] LABS: Glucose,Whole Blood 90 mg/dL (75-99)
[2020-04-02 07:15] LABS: Lymphocytes # (M) 0.98 k/uL (1.0-4.8); Monocytes # (M) 0.29 k/uL (0-1.0); Neutrophils # (M) 8.53 k/uL (1.3-7.7); Neutrophils % (M) 87 %; Nucleated Red Blood Cells 0 /100 WBC (0-0); Platelet Count 71 k/uL (150-450); Total Cells Counted 100
[2020-04-02] MEDS: cloNIDine HCL 0.1 MG TAB PO SCH ×2 (08:12→21:45)
[2020-04-02] MEDS: NICOTINE 21MG/24HR PATCH TRANSDERM SCH (08:12)
[2020-04-02 08:58] LABS: INR 1.1 (<1.2); Partial Thromboplastin Time 25.4 sec (22.0-30.0); Prothrombin Time 10.8 sec (9.0-12.0)
--- NOTE | 2020-04-02 10:20 | P.PN ---
Subjective Patient is seen in follow-up for acute kidney injury and hyperkalemia. she was started on hemodialysis in March 30 for oliguria and volume overload. Urine output about 0-5 mL an hour. Not requiring vasopressors. Potassium level normal. currently on nasal cannula. mentation also improved. Vital signs are stable. General: The patient appeared well nourished and normally developed. HEENT: Head exam is unremarkable. Neck is without jugular venous distension. On BiPAP. LUNGS: Breath sounds decreased. HEART: Rate and Rhythm are regular. First and second heart sounds normal. No murmurs, rubs or gallops. ABDOMEN: Soft, nontender. EXTREMITITES: 1+ edema. Objective - Vital Signs Vital signs: Vital Signs Temp 98.6 F 04/02/20 08:00 Pulse 106 H 04/02/20 09:00 Resp 16 04/02/20 09:00 BP 121/74 04/02/20 09:00 Pulse Ox 94 L 04/02/20 09:00 Intake & Output 04/01/20 04/02/20 04/02/20 18:59 06:59 18:59 Intake Total 394 156 84 Output Total 2010 10 Balance -1617 126 74 Weight 103.1 kg Intake: IV 334 156 84 Sodium Chloride 0.9% 1, 230 120 25 000 ml @ 50 mls/hr IV . Q20H [facility] Rx#:[id number] cefTRIAXone 1 gm In 50 50 Sodium Chloride 0.9% 50 ml @ 100 mls/hr IVPB Q24HR [facility] Rx#:[id number] pressure bag for A.line & 54 36 9 CVP at 3ml/hr each Oral 60 Output: Urine 11 30 10 Hemodialysis 1999 Other: Voiding Method Indwelling Catheter Indwelling Catheter ABP, PAP, CO, CI - Last Documented Arterial Blood Pressure 137/60 - Labs CBC & Chem 7: 04/02/20 05:12 04/02/20 05:12 Labs: Abnormal Lab Results - Last 24 Hours (Table) 04/02/20 04/02/20 Range/Units 05:12 05:12 RBC 3.40 L (3.80-5.40) m/uL Hgb 10.6 L (11.4-16.0) gm/dL Hct 33.3 L (34.0-46.0) % Plt Count 71 L (150-450) k/uL Neutrophils # (Manual) 8.53 H (1.3-7.7) k/uL Lymphocytes # (Manual) 0.98 L (1.0-4.8) k/uL Sodium 136 L (137-145) mmol/L BUN 54 H (7-17) mg/dL Creatinine 5.01 H (0.52-1.04) mg/dL Calcium 8.1 L (8.4-10.2) mg/dL AST 112 H (14-36) U/L ALT 1206 H (4-34) U/L Total Protein 4.8 L (6.3-8.2) g/dL Albumin 2.7 L (3.5-5.0) g/dL Microbiology - Last 24 Hours (Table) 03/28/20 12:09 Blood Culture - Preliminary Blood No Growth after 96 hours Assessment and Plan Plan: assessment: 1. Oliguric acute kidney injury secondary to ATN secondary to severe sepsis/hypotension. creatinine peaked at 5.1 this admission. Started on hemodialysis March 30 and has been undergoing daily dialysis. No evidence of hydronephrosis noted on ultrasound. 2. Acute hypercapnic respiratory failure. now on nasal cannula. 3. Hyperkalemia secondary to acute kidney injury, arb, and potassium supplementation. resolved. 4. Severe sepsis maintained on antibiotics. 5. Transaminitis likely from hypoperfusion. Hepatitis panel negative. acetaminophen level not high. improving. 6. Metabolic acidosis secondary to acute kidney injury. improved postdialysis. 7. Volume overload. improving with ultrafiltration. Plan: currently seen while undergoing hemodialysis - trying for 3 L ultrafiltration. Another treatment tomorrow. Will plan to hold dialysis on Sunday and monitor for renal recovery. status post IV Lasix March 31 with no response and urine output. Avoid nephrotoxins.
--- NOTE | 2020-04-02 12:08 | P.PN ---
Subjective Progress Note Date: 04/02/20 CHIEF COMPLAINT: Possible narcotic overdose from pain pump HISTORY OF PRESENT ILLNESS: Patient is lying in bed comfortably. She is currently getting hemodialysis. We are following patient for possible ch olecystitis with gallbladder wall thickening noted on abdominal ultrasound. She denies any abdominal pain. She is current with tolerating a clear liquid diet. She denies any nausea or vomiting. She is afebrile. White count has normalized 9.8. AST 112 and ALT 1206 trending down PHYSICAL EXAM: VITAL SIGNS: Reviewed. GENERAL: Well-developed in no acute distress. HEENT: No sclera icterus. Extraocular movements grossly intact. Moist buccal mucosa. Head is atraumatic, normocephalic. ABDOMEN: Soft. Nondistended. Nontender. NEUROLOGIC: Alert and oriented. Cranial nerves II through XII grossly intact. ASSESSMENT: 1. Possible cholecystitis with Gallbladder wall thickening noted on abdominal ultrasound 2. Acute hypercapnic respiratory failure secondary to narcotic overdose due to patient's morphine pain pump 3. Acute kidney injury requiring hemodialysis 4. Lactic acidosis improved 5. Acute shocked liver. LFTs trending down 6. History of chronic pain with chronic back pain and on morphine pain pump 7. History of CVA PLAN: -Discussed case with Dr. Linares who reports that patient is not medically stable to proceed with any surgery at this time -Continue to observe -Continue supportive care -Continue ICU management -Continue dialysis per nephrology -Continue antibiotics per infectious disease Physician Messenger Floorperson note has been reviewed by physician. Signing provider agrees with the documented findings, assessment, and plan of care. Objective - Vital Signs Vital signs: Vital Signs Temp 98.6 F 04/02/20 08:00 Pulse 93 04/02/20 10:00 Resp 12 04/02/20 10:00 BP 125/69 04/02/20 10:00 Pulse Ox 94 L 04/02/20 10:00 Intake & Output 04/01/20 04/02/20 04/02/20 18:59 06:59 18:59 Intake Total 394 156 84 Output Total 2010 10 Balance -1617 126 74 Weight 103.1 kg Intake: IV 334 156 84 Sodium Chloride 0.9% 1, 230 120 25 000 ml @ 50 mls/hr IV . Q20H [facility] Rx#:[id number] cefTRIAXone 1 gm In 50 50 Sodium Chloride 0.9% 50 ml @ 100 mls/hr IVPB Q24HR [facility] Rx#:[id number] pressure bag for A.line & 54 36 9 CVP at 3ml/hr each Oral 60 Output: Urine 11 30 10 Hemodialysis 1999 Other: Voiding Method Indwelling Catheter Indwelling Catheter ABP, PAP, CO, CI - Last Documented Arterial Blood Pressure 137/60 - Labs CBC & Chem 7: 04/02/20 05:12 04/02/20 05:12 Labs: Abnormal Lab Results - Last 24 Hours (Table) 04/02/20 04/02/20 Range/Units 05:12 05:12 RBC 3.40 L (3.80-5.40) m/uL Hgb 10.6 L (11.4-16.0) gm/dL Hct 33.3 L (34.0-46.0) % Plt Count 71 L (150-450) k/uL Neutrophils # (Manual) 8.53 H (1.3-7.7) k/uL Lymphocytes # (Manual) 0.98 L (1.0-4.8) k/uL Sodium 136 L (137-145) mmol/L BUN 54 H (7-17) mg/dL Creatinine 5.01 H (0.52-1.04) mg/dL Calcium 8.1 L (8.4-10.2) mg/dL AST 112 H (14-36) U/L ALT 1206 H (4-34) U/L Total Protein 4.8 L (6.3-8.2) g/dL Albumin 2.7 L (3.5-5.0) g/dL Microbiology - Last 24 Hours (Table) 03/28/20 12:09 Blood Culture - Preliminary Blood No Growth after 96 hours
--- NOTE | 2020-04-02 12:24 | P.PN ---
Subjective Progress Note Date: 04/02/20 64-year-old female patient presented to the ED for shortness of breath and difficulty breathing. The patient has chronic pain maintained on a morphine pump on outpatient basis and she hasn't followed up with Dr. Roberts on outpatient basis. Apparently the pain pump was replaced few days back. She is also on a combination of Xanax, gabapentin a [place] in addition to Seroquel. . The patient also has history of hypertension, previous history of CVA, hyperlipidemia, acid reflux and smoking Note that the patient came in for shortness of breath. She denied having any chest pain or palpitation. She denies having any nausea vomiting or abdominal pain. She denied having any headache. No new injury or trauma. No new areas of pain. Note that her initial white cell count was 21.8 and subsequent white cell count was 24.0. The patient had a normal platelet count and a normal hemoglobin of 13.8. Coagulation profile was within normal limits. Nevertheless, the patient was found to be in acute kidney injury. The patient's creatinine was up to 4.12 with a BUN of 29 and the patient's potassium was at 6.4 with a sodium level of 133. Anion gap was only a 10. The lactic acid level was at 3.2 with a calcium level of 7.6. She had an acute hepatocellular injury with a AST of 1741 that subsequently came up to 10/29/2001. She also had a ALT of 1788 and subsequently came at 4690. Troponin was at 0.9. Total protein was 6.2. UA showed +1 protein and +1 glucose. The chest x-ray done in the ED showed no acute cardiopulmonary process. CAT scan of the brain showed no acute process and CAT scan of the abdomen and pelvis done showed a small right-sided pleural effusion and some mild compressive atelectasis of the right lung base. Minimal amount of free fluid in the pelvis. Otherwise negative. EKG was in normal sinus rhythm and there were no acute EKG changes related to hyperkalemia. There is some low voltage EKG and T-wave abnormalities throughout. Note that the patient was treated for the hyperkalemia. The patient was given calcium gluconate and the patient was also given D50 insulin combination and bicarb pushes. The patient was having a low-grade fever of 100.0. The patient was given empiric antibiotic coverage and the patient was covered with a combination of Rocephin and vancomycin. Currently on IV fluids at the rate of 130 mL an hour. The patient was initially admitted to the medical floor and following that the patient was found to be apneic and altered mentally. She was given Narcan. She got transferred to the intensive care unit. She was given IV fluid boluses. The patient started on BiPAP after the blood gases showed an acute hypercapnic respiratory failure. The blood gases was done that showed a pH of 6.98 with a pCO2 of 98 and pO2 of 90 and this was on FiO2 of 40%. the patient is currently on a BiPAP and she is on a Narcan drip at 0.6 mg/hour. On today's evaluation of 03/29/2020, the patient is still lethargic. The patient was taken off the Narcan drip at around midnight and the patient was BiPAP. Nevertheless, the Patient Was Still Hypoventilating. I Repeated the Blood Gases This Morning and Showed a pH of 7.09 with a PCO2 of 71 and PO2 of 73. Based on That, I Restarted the Narcan Drip. I Contacted the Anesthesiologist to Evaluate the Pain Pump. Apparently the Patient Was Taken Total of 7.9 Mg of Morphine through the pump and we did a dose reduction down to 7.0 mg and according to the pain specialist, Dr. Lacy this could've affected the patient's breathing causing significant hypoventilation. The patient was kept on a BiPAP accordingly. The patient was switched to a BiPAP level of 16/5 cm of water and FiO2 28%. A repeat blood gas showed a pH of 7.19 with a pCO2 of 50 and pO2 of 90. The patient was much more alert and awake yet BiPAP dependent. IV fluids in the form of normal saline at the rate of 130 mL an hour. Cardiac rhythm is sinus. Further workup has been ordered including an ultrasound the kidneys and the liver and addition to a urine drug screen. An additional 1 bolus of fluid will be given to the patient today. Tylenol levels have been less than 10. On 03/30/2020, the patient is still doing poorly. She is lethargic and somnolent while wearing the BiPAP at a pressure of 16/5 cm of water. A repeat blood gases was done this morning the patient continues to have a combination of respiratory and metabolic acidosis. Specifically the pH was 7.21 with a pCO2 of 46 and pO2 of 92. The patient's chest x-ray was also showing some increased interstitial edema. The patient was aggressively resuscitated IV fluids and the patient is in a positive fluid balance of 4.5 L for yesterday and 3.1 L for the day before. In any rate, the patient has not produced significant urine output and urine output is noted of 5-10 mL an hour. On her blood work, the patient become acidotic and the electrolytes today shows her serum bicarbonate was 17 with an anion gap of 11. The BNP is 53 with a creatinine of 4.8 indicating further worsening of the renal function tests. As for the liver function tests, they are improving. The patient was in a shock liver. AST is down to 1794 and ALT is down to 3826 and alkaline phosphatase is within normal at 93. Serum ammonia level is at 54. The patient is off the Narcan drip for now. I asked her anesthesiologist to reevaluate the pain infusion knowing that the morphine pump was used on to 7 mg on a daily basis based on yesterday's evaluation and I'm hoping that we can further cut it down as the patient is a component of respiratory acidosis which could be related to opiates in general. I also discussed the case with nephrology. It's likely the patient will need dialysis if the patient is showing signs of fluid overload and addition to a very low urine output. Noted the patient was given a dose of Lasix 80 mg IV push without much benefit. Based on today's blood work, stress this patient to D5 sodium bicarbonate infusion at the rate of 75 mL an hour. The patient remains on empiric antibiotic coverage with IV Rocephin. A triple lumen catheter was inserted. The CVP was around 14. Do not think at was also inserted. 03/31/2020, the patient is being seen in follow-up. She remains a bit obtunded. Yet she is arousable. Profoundly weak especially in the upper and lower extremities. I noted that she was on the BiPAP throughout the night of the pressure of 16/5 cm of water with an FiO2 of 28%. She was also on a backup rate of 14. She remains on the same respiratory throughout the night and she hasn't been able to trigger the BiPAP machine. As such, I'm still concerned of the possibility of ongoing narcotics causing respiratory suppression. I repeated the blood gases this morning and there was improvement in the acid base status. The patient's pH was at 7.36 with a pCO2 of 45 and a pO2 of 92. She was still r eceiving a bicarb infusion at the rate of 150 mL an hour. Note that the serum bicarbs up to 26. Renal function is still impaired with a BUN of 54 and creatinine of 5.1. The patient underwent hemodialysis yesterday with a removal of 1 L of fluid and another session of hemodialysis will be done today. The patient is on empiric antibiotic coverage with IV Rocephin. She is also on a low dose norepinephrine for hemodynamic support as needed. Currently she is off the pressors. She was seen by nephrology. Another dose of 80 mg IV Lasix push was given to improve her urine output. The neck fluid balance over the past 24 hours is in the order of 1.4 L positive. The chest x-ray from today, shows hilar and mediastinal structures are within normal limits. There is by basilar infiltrates that are essentially unchanged. There is also scattered senescent parenchymal change. No other abnormalities have been noted. The surgical wound site over the abdominal wall is dry clean and intact. Note that yesterday were able to The Patient's Morphine Infusion to a Total of 5 Mg on a Daily Basis. 04/01/2020, the patient is much more awake and alert compared to yesterday. The patient is spending all night on BiPAP and currently she is taken off the BiPAP and the patient was switched to 3 L of oxygen by nasal cannula. She is able to communicate and she was oriented to time and place. She was on a BiPAP at a pressure of 16/5 cm of water and FiO2 of 28% and the patient was switched to 3 L of oxygen with a pulse ox of 92% and the patient's blood gas showed a pH of 7.38 with a pCO2 of 44 and pO2 of 83. Note that the morphine pain pump has been reduced down to 3.5 mg on a daily basis. The patient underwent hemodialysis yesterday. Despite all this, she continues to have some third spacing edema in all 4 extremities. Urine output is still low and the patient remains on normal saline at rate of 50 mL an hour. Her last hemodialysis from yesterday was completed with a total of 2.5 L of ultrafiltration. The blood work from today showed a bicarb of 28. The BUN is a 51 with a creatinine of 4.66. Shock liver was improving and the patient's liver function is gradually on the decline. Her ammonia level was down to 34. Her white cell count is down to 12.9. Platelet count is at 11. Hemoglobin stable at 11.3. She is receiving empiric antibiotic coverage with IV Rocephin. The patient is also on no pressors. 04/02/2020, the patient is awake and alert and she is following commands and answering questions of 3 L of oxygen by nasal cannula. No respiratory distress. The patient underwent hemodialysis yesterday with a total of 3 L of ultrafiltration. On today's evaluation the volume status is improved significantly. Urine output is no other of 50 mL over the past 24 hours and the patient is not producing much of urine output yet. She is requiring dialysis another session of dialysis will be done today. Her shock liver is improved and LFTs are essentially improving. Platelet counts have dropped down to 42. She has no nausea. No vomiting. No abdominal pain. No right upper quadrant tenderness. The ultrasound of the liver and the gallbladder showed some pericholecystic fluid and the same finding was identified on the CAT scan of the abdomen. The patient was placed on IV Rocephin. The patient was seen by general surgery. There was a consultation for a cholecystectomy. Nevertheless, I do not think the patient is medically cleared to undergo surgery . She is alert and awake and conscious and her mental status improved considerably. No other significant events overnight. Awaiting another session of dialysis. The white cell count is down to 9.8. The hemoglobin is at 10.6. Objective - Vital Signs Vital signs: Vital Signs Temp 98.6 F 04/02/20 08:00 Pulse 93 04/02/20 10:00 Resp 12 04/02/20 10:00 BP 125/69 04/02/20 10:00 Pulse Ox 94 L 04/02/20 10:00 Intake & Output 04/01/20 04/02/20 04/02/20 18:59 06:59 18:59 Intake Total 394 156 84 Output Total 2010 10 Balance -1617 126 74 Weight 103.1 kg Intake: IV 334 156 84 Sodium Chloride 0.9% 1, 230 120 25 000 ml @ 50 mls/hr IV . Q20H [facility] Rx#:[id number] cefTRIAXone 1 gm In 50 50 Sodium Chloride 0.9% 50 ml @ 100 mls/hr IVPB Q24HR [facility] Rx#:[id number] pressure bag for A.line & 54 36 9 CVP at 3ml/hr each Oral 60 Output: Urine 11 30 10 Hemodialysis 1999 Other: Voiding Method Indwelling Catheter Indwelling Catheter ABP, PAP, CO, CI - Last Documented Arterial Blood Pressure 137/60 - Exam Gen. appearance the patient is awake and alert on today's of oxygen by nasal cannula Head exam was generally normal. There was no scleral icterus or corneal arcus. Mucous membranes were moist. Neck was supple and without jugular venous distension, thyromegaly, or carotid bruits. Carotids were easily palpable bilaterally. There was no adenopathy. Lungs sounds are diminished bilaterally otherwise clear. There is no wheezes or rhonchi or any crackles. Cardiac exam revealed the PMI to be normally situated and sized. The rhythm was regular and no extrasystoles were noted during several minutes of auscultation. The first and second heart sounds were normal and physiologic splitting of the second heart sound was noted. There were no murmurs, rubs, clicks, or gallops. Abdominal exam revealed normal bowel sounds. The abdomen was soft, non-tender, and without masses, organomegaly, or appreciable enlargement of the abdominal aorta. The incision over the right abdominal wall is dry clean and intact and there is no active drainage at this point in time. Tisha are all in place. Examination of the extremities revealed easily palpable radial, femoral and pedal pulses. There was no cyanosis, clubbing or and the patient is developing some edema in all 4 extremities more so in the upper extremities bilaterally. Examination of the skin revealed no evidence of significant rashes, suspicious appearing nevi or other concerning lesions. Neurologically the patient is awake and communicating. She is moving all 4 extremities upon stimulation painful stimuli. No focal neurological deficit at this point in time. - Labs CBC & Chem 7: 04/02/20 05:12 04/02/20 05:12 Labs: Abnormal Lab Results - Last 24 Hours (Table) 04/02/20 04/02/20 Range/Units 05:12 05:12 RBC 3.40 L (3.80-5.40) m/uL Hgb 10.6 L (11.4-16.0) gm/dL Hct 33.3 L (34.0-46.0) % Plt Count 71 L (150-450) k/uL Neutrophils # (Manual) 8.53 H (1.3-7.7) k/uL Lymphocytes # (Manual) 0.98 L (1.0-4.8) k/uL Sodium 136 L (137-145) mmol/L BUN 54 H (7-17) mg/dL Creatinine 5.01 H (0.52-1.04) mg/dL Calcium 8.1 L (8.4-10.2) mg/dL AST 112 H (14-36) U/L ALT 1206 H (4-34) U/L Total Protein 4.8 L (6.3-8.2) g/dL Albumin 2.7 L (3.5-5.0) g/dL Microbiology - Last 24 Hours (Table) 03/28/20 12:09 Blood Culture - Preliminary Blood No Growth after 96 hours Assessment and Plan Plan: 1 acute hypercapnic respiratory failure, CO2 narcosis , Likely secondary to narcotic overdose probably related to increased dosage of the morphine through the pain pump. Recovered and the most recent blood pressure showed improvement and acid base status. No signs of any CO2 narcosis. 2 acute kidney injury, with oligoria , currently on hemodialysis. Urine output is low. The last hemodialysis session was yesterday with total of 2.5 L of ultrafiltration. Another session will be done today. 3 acute hyperkalemia, recovered 4 mild lactic acidosis, improved 5 acute shock liver, recovered 6 chronic pain and the patient has a morphine pain pump in place, currently on a morphine dose of 3.5 mg over 24 hours 7 previous history of CVA without any major neurologic deficits 8 hypertension 9 previous history of syncope 10 chronic back pain with previous history of back surgery in addition to degenerative spine disease in addition to spondylolisthesis and compression fracture 11 smoker 12 hypertension 13 hyperlipidemia 14 acid reflux 15 acute febrile illness, and the patient is currently on empiric antibiotic coverage with a combination of Rocephin and the patient's cultures of been all negative. 16 thrombocytopenia 17 questionable cholecystitis with some pericholecystic fluid Plan The patient is undergoing daily dialysis. Less session was yesterday and the p atient's urine output remains low obviously requiring another session of hemodialysis Shock liver is improving check coagulation profile as the patient's platelet count is dropping Nephrology is on the case Pain is under adequate control The patient will need more time for recovery. Our plan. Physical therapy. Not medically cleared for antibiotic general anesthesia. No significant nausea vomi ting or abdominal pain and as such the issue of gallbladder inflammatory changes and possibility of cholecystectomy can be postponed at a later stage. We'll continue to follow. Proceed with dialysis today.
--- NOTE | 2020-04-02 17:07 | PN ---
PROGRESS NOTE DATE OF SERVICE: 04/02/2020 REASON FOR FOLLOWUP: Leukocytosis and possible cholecystitis. INTERVAL HISTORY: The patient is currently afebrile, patient is breathing comfortably. Denies having any chest pain. She does have minimal cough. Some abdominal discomfort and nausea, but no vomiting, no diarrhea. PHYSICAL EXAMINATION: Blood pressure 132/72 with a pulse of 94, temperature is 98, she is 94% on 2 L. General description is a middle-aged female, lying in bed in no distress. RESPIRATORY SYSTEM: Unlabored breathing, clear to auscultation anteriorly. HEART: S1, S2. Regular rate and rhythm. ABDOMEN: Soft, no tenderness. LABS: Hemoglobin 10.4, white count of 9.8, creatinine is 5.01. Blood culture has been negative. DIAGNOSTIC IMPRESSION AND PLAN: Patient with elevated white count, multifactorial with a component of possible cholecystitis. This patient currently responding to Rocephin. White count normalized to continue and monitor clinical course closely. MMODL / IJN: [id number] /
--- NOTE | 2020-04-02 17:41 | P.PN ---
Progress Note - Text Progress Note Date: 04/02/20 Chief Complaint: Difficulty breathing Hospital course: Patient is 64-year-old female, was family doctor is Dr. pam Baker. Chronic stable medical conditions include chronic pain currently on a morphine pump , hypertension, CHF, and prior stroke who presented to the emergency department . Per the ER report patient is having difficulty breathing. Daughter called and found the same. Patient had a pain pump replaced 3 days ago. She follows with Dr. Hutton for pain pump. 3 days also she states she started having a fever. She has long-standing smoker. Baseline cough. No increased shortness of breath. Did receive some Narcan in the ER as she was a bit lethargic. When she got to the floor she again became lethargic blood gases sitting up pH of 6.88. It seemed to be a mixed respiratory and metabolic acidosis. Patient was therefore moved to the ICU with the orders for BiPAP. When I came to the ICU patient was using a BiPAP and was able to answer questions. She had a temperature of 100 the ER. On the floor she dropped respiratory rate also. She is put on a Narcan drip. Patient admitted with-metabolic encephalopathy likely from pain medications, acute hypoxic and hypercapnic respiratory failure from medications, acute kidney injury, acute ischemic hepatitis, septic shock, mixed metabolic and respiratory acidosis. Admitted ICU. Patient is put on a BiPAP. IV fluids. Levo fed. Bicarbonate. I spoke to Dr. Agee from neurology last night. Patient had his pain pump relocated from the spine to the anterior abdominal wound. It is intrathecal. Dose of morphine was not changed. Patient also was placed on Narcan drip. To which she responded well. Started on hemodialysis March 30. Admitted with-acute metabolic encephalopathy felt to be multifactorial, severe ischemic hepatitis from hypotension, acute kidney injury, likely ATN started on hemodialysis, septic shock, acute hypoxic and hypercapnic respiratory failure, metabolic and respiratory acidosis, COPD exacerbation. Empirically put on antibiotics source of infection unclear. Morphine dose and the pain pump decreased by Dr. Vee. Urait-PKS-duhdeic up in a chair. At the bedside. More cheerful. Tolerating clear liquid diet. Discussed with Dr. Linares and with Dr. Hurd. Patient not felt stable at this point to proceed with cholecystectomy. Very high risk at the present time. Also discussed with the daughter. Also discussed with Dr. Bowden from [place]. Review of systems: Was done for constitutional, cardiovascular, GI, pulmonary. relevant finding as above Active Medications Albuterol/Ipratropium (Ipratropium-Albuterol 3 Ml Neb) 3 ml INHALATION RT-Q2H PRN PRN Reason: Shortness Of Breath Or Wheezing Albuterol/Ipratropium (Ipratropium-Albuterol 3 Ml Neb) 3 ml INHALATION RT-Q4H [facility] Last Admin: 04/02/20 16:31 Dose: 3 ml Documented by: Clonidine (Clonidine Hcl 0.1 Mg Tab) 0.1 mg PO BID [facility] Last Admin: 04/02/20 08:12 Dose: 0.1 mg Documented by: Gabapentin (Gabapentin 300 Mg Cap) 300 mg PO [facility] Last Admin: 04/01/20 22:51 Dose: 300 mg Documented by: Hydralazine HCl (Hydralazine Hcl 20 Mg/Ml 1 Ml Vial) 20 mg IVP Q4HR PRN PRN Reason: Blood Pressure - High Last Admin: 04/01/20 08:16 Dose: 20 mg Documented by: Ceftriaxone Sodium 1 gm/ (Sodium Chloride) 50 mls @ 100 mls/hr IVPB Q24HR [facility] Last Admin: 04/02/20 08:11 Dose: 100 mls/hr Documented by: Naloxone HCl (Naloxone 0.4 Mg/Ml 1 Ml Vial) 0.2 mg IVP Q2M PRN PRN Reason: Opioid Reversal Last Admin: 03/28/20 17:23 Dose: 0.2 mg Documented by: Nicotine (Nicotine 21mg/24hr Patch) 1 patch TRANSDERM DAILY [facility] Last Admin: 04/02/20 08:12 Dose: 1 patch Documented by: Ropinirole HCl (Ropinirole Hcl 1 Mg Tab) 1 mg PO [facility] Last Admin: 04/01/20 22:51 Dose: 1 mg Documented by: Physical examination: VITAL SIGNS: 98, 105, 18, 121/76, 93% on 2 L GENERAL: Sitting up in a chair, awake, more comfortable EYES: Pupils equal. Conjunctiva normal. HEENT: External appearance of nose and ears normal, oral cavity grossly normal. NECK: JVD unable to assess; masses not palpable. HEART: First and second heart sounds are normal; no edema. LUNGS: Respiratory rate increased, diminished breath sounds ABDOMEN: Soft, nontender, liver spleen not palpable, no masses palpable. Right abdominal incision site healing well with the underlying pain pump PSYCH: Awake alert answer questions INVESTIGATIONS, reviewed in the clinical context: White count 9.8 hemoglobin 10.6 potassium 4.1 creatinine 5.01 AST 112 ALT 1206 Admission testing White count 21.8 hemoglobin 13.6 increased neutrophils potassium 6.4 bun 29 creatinine 4.12 Lactic acid 3.2 troponin I 0.911 AST 1741, ALT 1788 Hepatitis B surface antigen, core IgM antibody, hepatitis C IgG antibody all nonreactive ABG-pH 6.98, pCO2 98, bicarb 23 acetaminophen level less than 10 UA-negative for nitrate and leukoesterase EKG tracing personally reviewed by me-normal sinus rhythm some T-wave changes Computed tomography scan of the abdomen and pelvis-nonspecific Computed tomography scan of the brain-unremarkable Chest x-ray film personally reviewed by me-no obvious infiltrate, some elevations right diaphragm Abdominal ultrasound-taken gallbladder wall suggestive pericholecystic fluid, CBD 7 mm C. difficile-negative COVID 19 PCR not detected Hepatitis A IgM antibody nonreactive -Blood culture negative Previous testing: renal function is normal in December 2018 Assessment: -Acute metabolic encephalopathy. In the setting of acute renal failure patients on Neurontin [place] Seroquel Xanax Requip and viibryd. Received Narcan -improved -Chronic pain syndrome with a morphine pain pump that for relocated from the spine to the anterior abdominal wall 3 days prior to admission being followed by Dr. bedolla,-morphine dose decreased -Obesity BMI 34.5 -Severe ischemic hepatitis from hypotension-improving -Acute kidney injury likely ATN and worsening-started on hemodialysis March 30 -Septic shock and blood pressure dropping down to the 70s systolic. Status post pressor support corrected -Chronic L1 compression fracture -Acute hypoxic and hypercapnic respiratory failure responding to now on nasal cannula -Mixed metabolic and respiratory acidosis -Chronic nicotine dependence, patient is a cigarette smoker -Acute COPD exacerbation in a current smoker -Low-grade fever and infection site questionable cholecystitis-on antibiotics. Patient has been unstable for any surgery. -Essential hypertension-better controlled Plan: On bronchodilators, ceftriaxone, .-hemodialysis. Blood pressure better controlled. Discussion with consulting physicians as above. Surgery postponed for now. Total time spent about 45 minutes with over 30 minutes of discussion.
[2020-04-02] MEDS: GABAPENTIN 300 MG CAP PO SCH (21:45)
[2020-04-03 05:56] LABS: Basophils # (A) 0.1 k/uL (0-0.2); Basophils % (A) 1 %; Eosinophils # (A) 0.1 k/uL (0-0.7); Eosinophils % (A) 1 %; HCT 29.9 % (34.0-46.0); HGB 9.7 gm/dL (11.4-16.0); Lymphocytes # (A) 0.9 k/uL (1.0-4.8); Lymphocytes % (A) 10 %; MCH 31.1 pg (25.0-35.0); MCHC 32.3 g/dL (31.0-37.0); MCV 96.3 fL (80.0-100.0); Mean Platelet Volume 8.6; Monocytes # (A) 0.5 k/uL (0-1.0); Monocytes % (A) 6 %; Neutrophils # (A) 7.4 k/uL (1.3-7.7); Neutrophils % (A) 81 %; RBC 3.11 m/uL (3.80-5.40); RDW 15.2 % (11.5-15.5); WBC 9.2 k/uL (3.8-10.6)
[2020-04-03 06:08] LABS: Albumin 2.6 g/dL (3.5-5.0); Potassium 4.1 mmol/L (3.5-5.1); Total Bilirubin 0.6 mg/dL (0.2-1.3); Total Protein 4.8 g/dL (6.3-8.2)
[2020-04-03 06:22] LABS: Platelet Count 58 k/uL (150-450)
[2020-04-03] MEDS ORDERED: HEPARIN SODIUM,PORCINE 5,000 UNIT/ML 1 ML VIAL ONE (08:08)
[2020-04-03] MEDS: NICOTINE 21MG/24HR PATCH TRANSDERM SCH (09:39)
[2020-04-03] MEDS: IPRATROPIUM-ALBUTEROL 3 ML NEB INHALATION SCH ×4 (10:15→20:09)
--- NOTE | 2020-04-03 11:35 | P.PN ---
Subjective Progress Note Date: 04/03/20 64-year-old female patient presented to the ED for shortness of breath and difficulty breathing. The patient has chronic pain maintained on a morphine pump on outpatient basis and she hasn't followed up with Dr. Roberts on outpatient basis. Apparently the pain pump was replaced few days back. She is also on a combination of Xanax, gabapentin a Byron in addition to Seroquel. . The patient also has history of hypertension, previous history of CVA, hyperlipidemia, acid reflux and smoking Note that the patient came in for shortness of breath. She denied having any chest pain or palpitation. She denies having any nausea vomiting or abdominal pain. She denied having any headache. No new injury or trauma. No new areas of pain. Note that her initial white cell count was 21.8 and subsequent white cell count was 24.0. The patient had a normal platelet count and a normal hemoglobin of 13.8. Coagulation profile was within normal limits. Nevertheless, the patient was found to be in acute kidney injury. The patient's creatinine was up to 4.12 with a BUN of 29 and the patient's potassium was at 6.4 with a sodium level of 133. Anion gap was only a 10. The lactic acid level was at 3.2 with a calcium level of 7.6. She had an acute hepatocellular injury with a AST of 1741 that subsequently came up to 10/29/2001. She also had a ALT of 1788 and subsequently came at 4690. Troponin was at 0.9. Total protein was 6.2. UA showed +1 protein and +1 glucose. The chest x-ray done in the ED showed no acute cardiopulmonary process. CAT scan of the brain showed no acute process and CAT scan of the abdomen and pelvis done showed a small right-sided pleural effusion and some mild compressive atelectasis of the right lung base. Minimal amount of free fluid in the pelvis. Otherwise negative. EKG was in normal sinus rhythm and there were no acute EKG changes related to hyperkalemia. There is some low voltage EKG and T-wave abnormalities throughout. Note that the patient was treated for the hyperkalemia. The patient was given calcium gluconate and the patient was also given D50 insulin combination and bicarb pushes. The patient was having a low-grade fever of 100.0. The patient was given empiric antibiotic coverage and the patient was covered with a combination of Rocephin and vancomycin. Currently on IV fluids at the rate of 130 mL an hour. The patient was initially admitted to the medical floor and following that the patient was found to be apneic and altered mentally. She was given Narcan. She got transferred to the intensive care unit. She was given IV fluid boluses. The patient started on BiPAP after the blood gases showed an acute hypercapnic respiratory failure. The blood gases was done that showed a pH of 6.98 with a pCO2 of 98 and pO2 of 90 and this was on FiO2 of 40%. the patient is currently on a BiPAP and she is on a Narcan drip at 0.6 mg/hour. On today's evaluation of 03/29/2020, the patient is still lethargic. The patient was taken off the Narcan drip at around midnight and the patient was BiPAP. Nevertheless, the Patient Was Still Hypoventilating. I Repeated the Blood Gases This Morning and Showed a pH of 7.09 with a PCO2 of 71 and PO2 of 73. Based on That, I Restarted the Narcan Drip. I Contacted the Anesthesiologist to Evaluate the Pain Pump. Apparently the Patient Was Taken Total of 7.9 Mg of Morphine through the pump and we did a dose reduction down to 7.0 mg and according to the pain specialist, Dr. Lacy this could've affected the patient's breathing causing significant hypoventilation. The patient was kept on a BiPAP accordingly. The patient was switched to a BiPAP level of 16/5 cm of water and FiO2 28%. A repeat blood gas showed a pH of 7.19 with a pCO2 of 50 and pO2 of 90. The patient was much more alert and awake yet BiPAP dependent. IV fluids in the form of normal saline at the rate of 130 mL an hour. Cardiac rhythm is sinus. Further workup has been ordered including an ultrasound the kidneys and the liver and addition to a urine drug screen. An additional 1 bolus of fluid will be given to the patient today. Tylenol levels have been less than 10. On 03/30/2020, the patient is still doing poorly. She is lethargic and somnolent while wearing the BiPAP at a pressure of 16/5 cm of water. A repeat blood gases was done this morning the patient continues to have a combination of respiratory and metabolic acidosis. Specifically the pH was 7.21 with a pCO2 of 46 and pO2 of 92. The patient's chest x-ray was also showing some increased interstitial edema. The patient was aggressively resuscitated IV fluids and the patient is in a positive fluid balance of 4.5 L for yesterday and 3.1 L for the day before. In any rate, the patient has not produced significant urine output and urine output is noted of 5-10 mL an hour. On her blood work, the patient become acidotic and the electrolytes today shows her serum bicarbonate was 17 with an anion gap of 11. The BNP is 53 with a creatinine of 4.8 indicating further worsening of the renal function tests. As for the liver function tests, they are improving. The patient was in a shock liver. AST is down to 1794 and ALT is down to 3826 and alkaline phosphatase is within normal at 93. Serum ammonia level is at 54. The patient is off the Narcan drip for now. I asked her anesthesiologist to reevaluate the pain infusion knowing that the morphine pump was used on to 7 mg on a daily basis based on yesterday's evaluation and I'm hoping that we can further cut it down as the patient is a component of respiratory acidosis which could be related to opiates in general. I also discussed the case with nephrology. It's likely the patient will need dialysis if the patient is showing signs of fluid overload and addition to a very low urine output. Noted the patient was given a dose of Lasix 80 mg IV push without much benefit. Based on today's blood work, stress this patient to D5 sodium bicarbonate infusion at the rate of 75 mL an hour. The patient remains on empiric antibiotic coverage with IV Rocephin. A triple lumen catheter was inserted. The CVP was around 14. Do not think at was also inserted. 03/31/2020, the patient is being seen in follow-up. She remains a bit obtunded. Yet she is arousable. Profoundly weak especially in the upper and lower extremities. I noted that she was on the BiPAP throughout the night of the pressure of 16/5 cm of water with an FiO2 of 28%. She was also on a backup rate of 14. She remains on the same respiratory throughout the night and she hasn't been able to trigger the BiPAP machine. As such, I'm still concerned of the possibility of ongoing narcotics causing respiratory suppression. I repeated the blood gases this morning and there was improvement in the acid base status. The patient's pH was at 7.36 with a pCO2 of 45 and a pO2 of 92. She was still r eceiving a bicarb infusion at the rate of 150 mL an hour. Note that the serum bicarbs up to 26. Renal function is still impaired with a BUN of 54 and creatinine of 5.1. The patient underwent hemodialysis yesterday with a removal of 1 L of fluid and another session of hemodialysis will be done today. The patient is on empiric antibiotic coverage with IV Rocephin. She is also on a low dose norepinephrine for hemodynamic support as needed. Currently she is off the pressors. She was seen by nephrology. Another dose of 80 mg IV Lasix push was given to improve her urine output. The neck fluid balance over the past 24 hours is in the order of 1.4 L positive. The chest x-ray from today, shows hilar and mediastinal structures are within normal limits. There is by basilar infiltrates that are essentially unchanged. There is also scattered senescent parenchymal change. No other abnormalities have been noted. The surgical wound site over the abdominal wall is dry clean and intact. Note that yesterday were able to The Patient's Morphine Infusion to a Total of 5 Mg on a Daily Basis. 04/01/2020, the patient is much more awake and alert compared to yesterday. The patient is spending all night on BiPAP and currently she is taken off the BiPAP and the patient was switched to 3 L of oxygen by nasal cannula. She is able to communicate and she was oriented to time and place. She was on a BiPAP at a pressure of 16/5 cm of water and FiO2 of 28% and the patient was switched to 3 L of oxygen with a pulse ox of 92% and the patient's blood gas showed a pH of 7.38 with a pCO2 of 44 and pO2 of 83. Note that the morphine pain pump has been reduced down to 3.5 mg on a daily basis. The patient underwent hemodialysis yesterday. Despite all this, she continues to have some third spacing edema in all 4 extremities. Urine output is still low and the patient remains on normal saline at rate of 50 mL an hour. Her last hemodialysis from yesterday was completed with a total of 2.5 L of ultrafiltration. The blood work from today showed a bicarb of 28. The BUN is a 51 with a creatinine of 4.66. Shock liver was improving and the patient's liver function is gradually on the decline. Her ammonia level was down to 34. Her white cell count is down to 12.9. Platelet count is at 11. Hemoglobin stable at 11.3. She is receiving empiric antibiotic coverage with IV Rocephin. The patient is also on no pressors. 04/02/2020, the patient is awake and alert and she is following commands and answering questions of 3 L of oxygen by nasal cannula. No respiratory distress. The patient underwent hemodialysis yesterday with a total of 3 L of ultrafiltration. On today's evaluation the volume status is improved significantly. Urine output is no other of 50 mL over the past 24 hours and the patient is not producing much of urine output yet. She is requiring dialysis another session of dialysis will be done today. Her shock liver is improved and LFTs are essentially improving. Platelet counts have dropped down to 42. She has no nausea. No vomiting. No abdominal pain. No right upper quadrant tenderness. The ultrasound of the liver and the gallbladder showed some pericholecystic fluid and the same finding was identified on the CAT scan of the abdomen. The patient was placed on IV Rocephin. The patient was seen by general surgery. There was a consultation for a cholecystectomy. Nevertheless, I do not think the patient is medically cleared to undergo surgery . She is alert and awake and conscious and her mental status improved considerably. No other significant events overnight. Awaiting another session of dialysis. The white cell count is down to 9.8. The hemoglobin is at 10.6. On 04/03/2020, the patient is feeling well. No specific complaints. Underwent hemodialysis yesterday and another session will be given to her today. I fluids at KVO. She is on 2 L of oxygen by nasal cannula. She is awake and alert. Shock liver is improving. Urine output is order of hypodensities an hour and the patient will need a permacath insertion and later stage. No nausea. No vomiting. No abdominal pain. No altered mentation. No diarrhea. She is tolerating diet. No other significant events overnight. Objective - Vital Signs Vital signs: Vital Signs Temp 97.7 F 04/03/20 10:59 Pulse 80 04/03/20 11:00 Resp 14 04/03/20 11:00 BP 132/62 04/03/20 11:00 Pulse Ox 95 04/03/20 11:00 Intake & Output 04/02/20 04/03/20 04/03/20 18:59 06:59 18:59 Intake Total 171 243 50 Output Total 3028 33 3007 Balance -2857 210 -2957 Weight 103.1 kg 100.7 kg Intake: IV 171 123 50 0.9 Normal Saline at 10mL 60 120 50 /hr as KVO Sodium Chloride 0.9% 1, 25 000 ml @ 50 mls/hr IV . Q20H [facility] Rx#:[id number] cefTRIAXone 1 gm In 50 Sodium Chloride 0.9% 50 ml @ 100 mls/hr IVPB Q24HR [facility] Rx#:[id number] pressure bag for A.line & 36 3 CVP at 3ml/hr each Oral 120 Output: Urine 28 33 7 Hemodialysis 3000 3000 Other: Voiding Method Indwelling Catheter Indwelling Catheter Indwelling Catheter ABP, PAP, CO, CI - Last Documented Arterial Blood Pressure 137/60 - Exam Gen. appearance the patient is awake and alert on today's of oxygen by nasal cannula Head exam was generally normal. There was no scleral icterus or corneal arcus. Mucous membranes were moist. Neck was supple and without jugular venous distension, thyromegaly, or carotid bruits. Carotids were easily palpable bilaterally. There was no adenopathy. Lungs sounds are diminished bilaterally otherwise clear. There is no wheezes or rhonchi or any crackles. Cardiac exam revealed the PMI to be normally situated and sized. The rhythm was regular and no extrasystoles were noted during several minutes of auscultation. The first and second heart sounds were normal and physiologic splitting of the second heart sound was noted. There were no murmurs, rubs, clicks, or gallops. Abdominal exam revealed normal bowel sounds. The abdomen was soft, non-tender, and without masses, organomegaly, or appreciable enlargement of the abdominal aorta. The incision over the right abdominal wall is dry clean and intact and there is no active drainage at this point in time. Mcd[place] are all in place. Examination of the extremities revealed easily palpable radial, femoral and pedal pulses. There was no cyanosis, clubbing or and the patient is developing some edema in all 4 extremities more so in the upper extremities bilaterally. Examination of the skin revealed no evidence of significant rashes, suspicious appearing nevi or other concerning lesions. Neurologically the patient is awake and communicating. She is moving all 4 extremities upon stimulation painful stimuli. No focal neurological deficit at this point in time. - Labs CBC & Chem 7: 04/03/20 05:40 04/03/20 05:40 Labs: Abnormal Lab Results - Last 24 Hours (Table) 04/03/20 04/03/20 Range/Units 05:40 05:40 RBC 3.11 L (3.80-5.40) m/uL Hgb 9.7 L (11.4-16.0) gm/dL Hct 29.9 L (34.0-46.0) % Plt Count 58 L (150-450) k/uL Lymphocytes # 0.9 L (1.0-4.8) k/uL Sodium 131 L (137-145) mmol/L BUN 49 H (7-17) mg/dL Creatinine 4.75 H (0.52-1.04) mg/dL Glucose 103 H (74-99) mg/dL Calcium 8.0 L (8.4-10.2) mg/dL AST 71 H (14-36) U/L ALT 767 H (4-34) U/L Total Protein 4.8 L (6.3-8.2) g/dL Albumin 2.6 L (3.5-5.0) g/dL Microbiology - Last 24 Hours (Table) 03/28/20 12:09 Blood Culture - Preliminary Blood No Growth after 120 hours Assessment and Plan Plan: 1 acute hypercapnic respiratory failure, CO2 narcosis , Likely secondary to narcotic overdose probably related to increased dosage of the morphine through the pain pump. Recovered and the most recent blood pressure showed improvement and acid base status. No signs of any CO2 narcosis. The most recent blood gas from 04/01/2020 showed a pH of 7.38 with a pCO2 of 44 and pO2 of 83 and this was done and FiO2 of 32%. She shows no confusion. No altered mentation. She is off the BiPAP. Her pain is under good control. 2 acute kidney injury, with oligoria , currently on hemodialysis. Urine output is low. The patient is undergoing dialysis regularly. Urine output is low and the patient may be requiring a permacath on long-term dialysis at a later stage. 3 acute hyperkalemia, recovered 4 mild lactic acidosis, improved 5 acute shock liver, recovered 6 chronic pain and the patient has a morphine pain pump in place, currently on a morphine dose of 3.5 mg over 24 hours 7 previous history of CVA without any major neurologic deficits 8 hypertension 9 previous history of syncope 10 chronic back pain with previous history of back surgery in addition to degenerative spine disease in addition to spondylolisthesis and compression fracture 11 smoker 12 hypertension 13 hyperlipidemia 14 acid reflux 15 acute febrile illness, and the patient is currently on empiric antibiotic coverage with a combination of Rocephin and the patient's cultures of been all negative. 16 thrombocytopenia, stable 17 questionable cholecystitis with some pericholecystic fluid Plan Continue hemodialysis per nephrology Permacath catheter insertion at a later stage Platelet counts are stable Shock liver is improving and the LFTs continue to drop and levels We'll chest and the patient to the medical floor. We'll continue to follow.
[2020-04-03] MEDS: cloNIDine HCL 0.1 MG TAB PO SCH (12:18)
[2020-04-03] MEDS ORDERED: ALPRAZolam 0.25 MG TAB PO PRN (13:38)
--- NOTE | 2020-04-03 14:12 | P.PN ---
Subjective 64-year-old female was admitted for the last encephalopathy, patient also had acute tubular necrosis and was started on hemodialysis. Patient's ence phalopathy improved. Patient had a morphine pain pump which blew to have contributed to her encephalopathy. Dosing on that pain pump was changed. Patient will transfer out of ICU patient has a temporary hemodialysis catheter . Is complaining of anxiety patient was started on SSRI and as needed b enzodiazepines. Constitutional: Denied any fatigue denied any fever. Cardio vascular: denied any chest pain, palpitations Gastrointestinal denied any nausea vomiting Pulmonary: Denied any shortness of breath cough Neurologic denied any new focal deficits All inpatient medications were reviewed and appropriate changes in these medications as dictated in the interval history and assessment and plan. Objective - Vital Signs Vital signs: Vital Signs Temp 98.0 F 04/03/20 12:00 Pulse 95 04/03/20 13:00 Resp 17 04/03/20 13:00 BP 133/77 04/03/20 13:00 Pulse Ox 93 L 04/03/20 13:00 Intake & Output 04/02/20 04/03/20 04/03/20 18:59 06:59 18:59 Intake Total 171 243 120 Output Total 3028 33 3007 Balance -2857 210 -2887 Weight 103.1 kg 100.7 kg Intake: IV 171 123 120 0.9 Normal Saline at 10mL 60 120 70 /hr as KVO Sodium Chloride 0.9% 1, 25 000 ml @ 50 mls/hr IV . Q20H [facility] Rx#:[id number] cefTRIAXone 1 gm In 50 50 Sodium Chloride 0.9% 50 ml @ 100 mls/hr IVPB Q24HR [facility] Rx#:[id number] pressure bag for A.line & 36 3 CVP at 3ml/hr each Oral 120 Output: Urine 28 33 7 Hemodialysis 3000 3000 Other: Voiding Method Indwelling Catheter Indwelling Catheter Indwelling Catheter ABP, PAP, CO, CI - Last Documented Arterial Blood Pressure 137/60 - Exam PHYSICAL EXAMINATION: GENERAL: The patient is alert and oriented x3, not in any acute distress. Well developed, well nourished. HEENT: Pupils are round and equally reacting to light. EOMI. No scleral icterus. No conjunctival pallor. Normocephalic, atraumatic. No pharyngeal erythema. No thyromegaly. Hematoma of the right earlobe CARDIOVASCULAR: S1 and S2 present. No murmurs, rubs, or gallops. PULMONARY: Chest is clear to auscultation, no wheezing or crackles. ABDOMEN: Soft, nontender, nondistended, normoactive bowel sounds. No palpable organomegaly. MUSCULOSKELETAL: No joint swelling or deformity. EXTREMITIES: No cyanosis, clubbing, or pedal edema. NEUROLOGICAL: Gross neurological examination did not reveal any focal deficits. SKIN: No rashes. - Labs CBC & Chem 7: 04/03/20 05:40 04/03/20 05:40 Labs: Abnormal Lab Results - Last 24 Hours (Table) 04/03/20 04/03/20 Range/Units 05:40 05:40 RBC 3.11 L (3.80-5.40) m/uL Hgb 9.7 L (11.4-16.0) gm/dL Hct 29.9 L (34.0-46.0) % Plt Count 58 L (150-450) k/uL Lymphocytes # 0.9 L (1.0-4.8) k/uL Sodium 131 L (137-145) mmol/L BUN 49 H (7-17) mg/dL Creatinine 4.75 H (0.52-1.04) mg/dL Glucose 103 H (74-99) mg/dL Calcium 8.0 L (8.4-10.2) mg/dL AST 71 H (14-36) U/L ALT 767 H (4-34) U/L Total Protein 4.8 L (6.3-8.2) g/dL Albumin 2.6 L (3.5-5.0) g/dL Microbiology - Last 24 Hours (Table) 03/28/20 12:09 Blood Culture - Preliminary Blood No Growth after 120 hours Assessment and Plan Plan: . -Acute metabolic encephalopathy. Secondary to her medications that is morphine pump Balsam Seroquel, gabapentin. -Chronic pain syndrome with a morphine pain pump that for relocated from the spine to the anterior abdominal wall 3 days prior to admission being followed by Dr. bedolla,-morphine dose decreased -Obesity BMI 34.5 -Severe ischemic hepatitis or shock liver from hypotension-improving -Acute kidney injury likely ATN and worsening-started on hemodialysis March 30 -Septic shock and blood pressure dropping down to the 70s systolic. Status post pressor support corrected -Chronic L1 compression fracture -Acute hypoxic and hypercapnic respiratory failure responding to now on nasal cannula -Mixed metabolic and respiratory acidosis -Chronic nicotine dependence, patient is a cigarette smoker -Acute COPD exacerbation in a current smoker -Low-grade fever and infection site questionable cholecystitis-on antibiotics. Patient did not undergo cholecystectomy because of his hemodynamic instability. -Essential hypertension-better controlled
--- NOTE | 2020-04-03 14:16 | PN ---
PROGRESS NOTE Patient is seen for followup for acute kidney injury. She is currently seen on hemodialysis. Initially her catheter was not working, however, it seems to be working better right now. The patient remains with poor urine output at about 0-4 mL an hour. She is currently not on any pressors. She is awake and patient will have a renal diet for lunch. PHYSICAL EXAMINATION: On examination today, blood pressure was 132/62, heart rate 80 per minute, patient is afebrile. Examination of the heart S1, S2. Examination of the lungs, bilateral breath sounds are heard. Abdomen is soft, nontender. Examination of lower extremities shows edema 1+ bilaterally. PROCUREMENT COORDINATOR exam shows patient moving all four extremities. LABS: Show sodium of 131, potassium 4.1, chloride 98, serum creatinine 4.75, albumin is 2.6 g/dL. ASSESSMENT: 1. Acute kidney injury, acute tubular necrosis, currently oliguric and hemodialysis dependent. We will proceed with PermCath placement and continue to maintain patient on dialysis. Started on hemodialysis on March 30. 2. Acute hypercapnic respiratory failure, currently improved. 3. Hyperkalemia associated with acute kidney injury and use of angiotensin receptor blockers and potassium supplementation, now improved. 4. Sepsis, currently improving. 5. Elevated liver enzymes from hypoperfusion. 6. Volume overload, currently improving. PLAN: Proceed with placement of permanent catheter and arrange for hemodialysis on Sunday. MMODL / IJN: [id number] /
--- NOTE | 2020-04-03 15:10 | P.GSCN ---
History of Present Illness Consult date: 04/03/20 History of present illness: CHIEF COMPLAINT: Cholecystitis HISTORY OF PRESENT ILLNESS: The patient is a 64-year-old female who initially presented to emergency room with difficulty breathing and history of a pain pump. She had tenderness along the pain pump and developed increase lethargy. She was brought into the intensive care unit. She presented with sepsis in cluding elevated white count and with fever. She also had elevated creatinine with acute renal failure. She had an ultrasound of the gallbladder with gallbladder wall thickening. She presented with shock liver syndrome. She was started on hemodialysis. Patient's family is requesting second opinion regarding gallbladder removal. Patient's daughter is at bedside. Patient has acute renal failure including acute liver shock syndrome. Per records, patient had been unstable. At this time patient is sitting up at bedside with family at bedside. Initial surgical consultation was obtained but patient was unstable for surgery. Per request of the family, they requested second opinion for surgical options. PAST MEDICAL HISTORY: See list and reviewed PAST SURGICAL HISTORY: See list and reviewed MEDICATIONS: See list and reviewed ALLERGIES: See list and reviewed SOCIAL HISTORY: See list and reviewed FAMILY HISTORY: See list and reviewed REVIEW OF ORGAN SYSTEMS: CONSTITUTIONAL: Patient presented with fevers. EYES: Denies any trouble with vision. No glasses. HEENT: No difficulties with hearing. No nosebleeds. No difficulty swallowing. RESPIRATORY: Has pneumonia. Denies any troubles with breathing or dyspnea on exertion. CARDIOVASCULAR: History of heart failure. GASTROINTESTINAL: Denies fatty food intolerance. Denies change in bowel habits and gas bloat. GENITOURINARY: Denies any blood in urine or increased urinary frequency. NEUROLOGICAL: Has chronic pain. MUSCULOSKELETAL: Has back pain, stiffness or joint arthritis. SKIN: No current skin cancer. No rash. PSYCHIATRIC: Has anxiety. Has depression. History of stroke. Has bipolar disorder. ENDOCRINE: Denies current thyroid disorders. Denies any blood sugar glucose intolerance. HEME/LYMPHATIC: Denies any lumps and bumps around the neck. No recent deep venous thrombosis. BREAST: Denies current breast lumps, pain or nipple discharge. PHYSICAL EXAM: VITALS: Reviewed CONSTITUTIONAL: Well developed and in no acute distress. EYES: Conjuctivae without sclera icterus. Pupils are equally round and reactive to light. Extraocular movements grossly intact. HEAD, EARS, NOSE, THROAT: Moist buccal mucosa. Hears conversational speech. No nasal drainage. Has sutures along the right earlobe. NECK: Supple. No JV distention. No thyroidomegaly. RESPIRATORY: Non-labored respirations and equal bilateral excursions. No gross wheezes. CARDIOVASCULAR: Palpable 2+ radial pulses. ABDOMEN: Soft. Tender right upper quadrant. No gross peritonitis. LYMPH: No axillary lymphadenopathy. MUSCULOSKELETAL: Nail and fingers with good capillary refill. SKIN: Warm and well perfused with good skin turgor. NEUROLOGIC: Cranial nerves II through XII grossly intact. Sensation upper and extremities intact. No focal or lateralizing signs. PSYCH: Appropriate affect. Alert and oriented to person, place and time. Displays appropriate insight. CLINCAL LABS: Reviewed. WBC elevated at 24,000 now normal, 9,200. AST and ALT were elevated over 7000 to 8000 trending downward. IMAGING: Independently reviewed ultrasound of the gallbladder demonstrated thickened gallbladder wall. ASSESSMENT: 1. Abnormal gallbladder ultrasound 2. Cholecystitis 3. Shock liver syndrome 4. Acute renal failure, hemodialysis 5. Chronic pain syndrome PLAN: 1. Agreeable with no surgical intervention at this time. 2. Continue IV antibiotics. 3. Outpatient assessment for cholecystectomy described. Patient and family agreeable plan of care. Thank you for this kind consultation. Past Medical History Past Medical History: Heart Failure, CVA/TIA, Hypertension, Osteoarthritis (OA), Syncope Additional Past Medical History / Comment(s): chronic back pain- has morphine pain pump implanted right abdomen., uses cane/walker prn., hx cva (pt did not k now), syncope with hx of falls- states several concusions, fx spine 2018 MRI of the lumbar spine that was done in 2018 showed degenerative disc disease, facet arthropathy, spondylolisthesis, L1 endplate compression fracture without any significant spinal stenosis and the patient had a indwelling stimulator lead. , states swelling lower extremities., gastritis, having" burning in stomach, gas and change in stools", usually eat once daily. , states she broke 4 toes last week. History of Any Multi-Drug Resistant Organisms: None Reported Past Surgical History: Back Surgery Additional Past Surgical History / Comment(s): laproscopic surgery (for miscarriage), back injections Past Anesthesia/Blood Transfusion Reactions: No Reported Reaction Past Psychological History: Anxiety, Bipolar, Depression Smoking Status: Current some day smoker Past Alcohol Use History: None Reported Additional Past Alcohol Use History / Comment(s): smokes 1 1/2 ppd, smoking on and off since she was 24 yrs old. Past Drug Use History: None Reported - Past Family History Father Family Medical History: Cancer, Diabetes Mellitus Mother Family Medical History: Cancer Brother(s) Family Medical History: Cancer Additional Family Medical History / Comment(s): agent orange Medications and Allergies Home Medications Medication Instructions Recorded Confirmed Type HYDROcodone/APAP 10-325MG [[place] 1 tab PO TID PRN 02/12/17 03/28/20 History 10-325] Atorvastatin Calcium [Lipitor] 20 mg PO DAILY 09/02/18 03/28/20 History Ergocalciferol (Vitamin D2) 50,000 unit PO STEVENSON 09/02/18 03/28/20 History [Drisdol] hydrOXYzine HCL [Atarax] 10 mg PO TID PRN #12 tab 11/15/18 03/28/20 Rx Cyanocobalamin (Vitamin B-12) 1,000 mcg PO DAILY 05/27/19 03/28/20 History [Vitamin B-12] Gabapentin [Neurontin] 300 mg PO TID 05/27/19 03/28/20 History Irbesartan [Avapro] 75 mg PO BID 05/27/19 03/28/20 History Morphine/Bupivacaine Pump 0 ml .ROUTE CONTINUOUS 05/27/19 03/28/20 History QUEtiapine [SEROquel] 100 mg PO HS 05/27/19 03/28/20 History Sucralfate [Carafate] 2 gm PO BID 05/27/19 03/28/20 History ALPRAZolam [Xanax] 0.5 mg PO TID PRN 03/28/20 03/28/20 History Furosemide [Lasix] 40 mg PO DAILY 03/28/20 03/28/20 History Potassium Chloride ER [K-Dur 10] 10 meq PO DAILY 03/28/20 03/28/20 History Vilazodone HCl [Viibryd] 10 mg PO DAILY 03/28/20 03/28/20 History rOPINIRole HCL [Requip] 1 mg PO HS 03/28/20 03/28/20 History Allergies Allergy/AdvReac Type Severity Reaction Status Date / Time Sulfa (Sulfonamide Allergy Severe Rash/Hives, Verified 03/28/20 14:32 Antibiotics) N & V, IRREGULAR HEART BEAT. aspirin Allergy IRREGULAR Verified 03/28/20 14:32 HEART BEAT, N & V, HIVES Penicillins Allergy Unknown Verified 03/28/20 14:32 Milk Containing Products AdvReac Diarrhea Verified 04/03/20 07:29 [Dairy] Surgical - Exam Vital Signs Temp Pulse Resp BP Pulse Ox 100 F H 103 H 22 84/55 95 03/28/20 11:11 03/28/20 11:11 03/28/20 11:11 03/28/20 11:11 03/28/20 11:11 Results - Labs 04/03/20 05:40 04/03/20 05:40 Abnormal Lab Results - Last 24 Hours (Table) 04/03/20 04/03/20 Range/Units 05:40 05:40 RBC 3.11 L (3.80-5.40) m/uL Hgb 9.7 L (11.4-16.0) gm/dL Hct 29.9 L (34.0-46.0) % Plt Count 58 L (150-450) k/uL Lymphocytes # 0.9 L (1.0-4.8) k/uL Sodium 131 L (137-145) mmol/L BUN 49 H (7-17) mg/dL Creatinine 4.75 H (0.52-1.04) mg/dL Glucose 103 H (74-99) mg/dL Calcium 8.0 L (8.4-10.2) mg/dL AST 71 H (14-36) U/L ALT 767 H (4-34) U/L Total Protein 4.8 L (6.3-8.2) g/dL Albumin 2.6 L (3.5-5.0) g/dL Microbiology - Last 24 Hours (Table) 03/28/20 12:09 Blood Culture - Final Blood No Growth after 144 hours Diabetes panel 04/03/20 Range/Units 05:40 Sodium 131 L (137-145) mmol/L Potassium 4.1 (3.5-5.1) mmol/L Chloride 98 (98-107) mmol/L Carbon Dioxide 26 (22-30) mmol/L BUN 49 H (7-17) mg/dL Creatinine 4.75 H (0.52-1.04) mg/dL Glucose 103 H (74-99) mg/dL Calcium 8.0 L (8.4-10.2) mg/dL AST 71 H (14-36) U/L ALT 767 H (4-34) U/L Alkaline Phosphatase 113 (38-126) U/L Total Protein 4.8 L (6.3-8.2) g/dL Albumin 2.6 L (3.5-5.0) g/dL Calcium panel 04/03/20 Range/Units 05:40 Calcium 8.0 L (8.4-10.2) mg/dL Albumin 2.6 L (3.5-5.0) g/dL Pituitary panel 04/03/20 Range/Units 05:40 Sodium 131 L (137-145) mmol/L Potassium 4.1 (3.5-5.1) mmol/L Chloride 98 (98-107) mmol/L Carbon Dioxide 26 (22-30) mmol/L BUN 49 H (7-17) mg/dL Creatinine 4.75 H (0.52-1.04) mg/dL Glucose 103 H (74-99) mg/dL Calcium 8.0 L (8.4-10.2) mg/dL Adrenal panel 04/03/20 Range/Units 05:40 Sodium 131 L (137-145) mmol/L Potassium 4.1 (3.5-5.1) mmol/L Chloride 98 (98-107) mmol/L Carbon Dioxide 26 (22-30) mmol/L BUN 49 H (7-17) mg/dL Creatinine 4.75 H (0.52-1.04) mg/dL Glucose 103 H (74-99) mg/dL Calcium 8.0 L (8.4-10.2) mg/dL Total Bilirubin 0.6 (0.2-1.3) mg/dL AST 71 H (14-36) U/L ALT 767 H (4-34) U/L Alkaline Phosphatase 113 (38-126) U/L Total Protein 4.8 L (6.3-8.2) g/dL Albumin 2.6 L (3.5-5.0) g/dL Assessment and Plan (1) Acute renal failure Current Visit: Yes Status: Acute Code(s): N17.9 - ACUTE KIDNEY FAILURE, UNSPECIFIED SNOMED Code(s): 73547214 (2) Hepatitis Current Visit: Yes Status: Acute Code(s): K75.9 - INFLAMMATORY LIVER DISEASE, UNSPECIFIED SNOMED Code(s): 070808457 (3) Sepsis Current Visit: Yes Status: Acute Code(s): A41.9 - SEPSIS, UNSPECIFIED ORGANISM SNOMED Code(s): 12198853 (4) Chronic pain Current Visit: No Status: Acute Code(s): G89.29 - OTHER CHRONIC PAIN SNOMED Code(s): 76783297 (5) Fall Current Visit: No Status: Acute Code(s): W19.XXXA - UNSPECIFIED FALL, INITIAL ENCOUNTER SNOMED Code(s): 7313177 (6) GERD (gastroesophageal reflux disease) Current Visit: No Status: Acute Code(s): K21.9 - GASTRO-ESOPHAGEAL REFLUX DISEASE WITHOUT ESOPHAGITIS SNOMED Code(s): 749606190
--- NOTE | 2020-04-03 20:33 | PN ---
PROGRESS NOTE DATE OF SERVICE: 04/03/2020 REASON FOR FOLLOWUP: Leukocytosis and possible acute cholecystitis. INTERVAL HISTORY: Patient is currently afebrile. The patient is breathing comfortably. The patient denies having any chest pain. No shortness of breath or cough. No nausea. No vomiting. No abdominal pain. The patient did have slight drainage from her right ear and apparently the patient had been lying on the side after the patient did have a fall. PHYSICAL EXAMINATION: Her blood pressure is 154/81 with a pulse of 96, temperature 98.2, she is 93% on room air. General description is a middle-aged female up in the chair in no distress. HEENT examination shows the right ear did have some swelling but wound had minimal drainage. Lungs with unlabored breathing, clear to auscultation anteriorly. Heart S1, S2. Regular rate and rhythm. ABDOMEN: Soft, no tenderness. LABS: Hemoglobin is 9.7, white count 9.2, creatinine 4.75. Blood culture has been negative. DIAGNOSTIC IMPRESSION AND PLAN: 1. Patient with a fever and elevated white count with concern for possible cholecystitis. The patient clinically responded to Rocephin. I will continue and monitor clinical course closely. 2. Injury to the right ear with some drainage. Will treat locally with Triad cream and monitor clinical course closely. MMODL / IJN: [id number] /
[2020-04-03] MEDS: GABAPENTIN 300 MG CAP PO SCH (20:45)
[2020-04-03] MEDS: FAMOTIDINE 20 MG TAB PO SCH (20:46)
[2020-04-04] MEDS: IPRATROPIUM-ALBUTEROL 3 ML NEB INHALATION SCH ×4 (07:33→20:23)
[2020-04-04] MEDS: CITALOPRAM HYDROBROMIDE 10 MG TAB PO SCH (08:38)
[2020-04-04] MEDS: cloNIDine HCL 0.1 MG TAB PO SCH (08:38)
[2020-04-04] MEDS: FAMOTIDINE 20 MG TAB PO SCH (08:38)
[2020-04-04] MEDS ORDERED: MIDAZOLAM 2 MG/2 ML VIAL IV ONE (09:10)
[2020-04-04] MEDS ORDERED: fentaNYL (PF) 50 MCG/ML 2 ML AMP IV ONE (09:11)
[2020-04-04] MEDS ORDERED: LIDOCAINE 1% INJ 10MG/ML (20 ML MDV) SQ ONE ×2 (09:12→09:23)
[2020-04-04] MEDS ORDERED: IV FLUID CONTINUATION 400 ML IV ONE (09:12)
[2020-04-04] MEDS ORDERED: HEPARIN SODIUM 1,000 UN/ML (10ML VL) IV ONE (09:34)
[2020-04-04 09:55] LABS: African American GFR (CKD) 12.7 (60.0-200.0); Anion Gap 10.4 mmol/L (4.00-12.00); BUN/Creat Ratio 10.73 Ratio (12.00-20.00); Carbon Dioxide 26.6 mmol/L (21.6-31.8); Potassium 4.1 mmol/L (3.5-5.5)
--- NOTE | 2020-04-04 10:40 | XR ---
EXAMINATION TYPE: XR chest 1V confirm line [facility] DATE OF EXAM: 04/04/2020 HISTORY: Central venous line placement COMPARISON: 04/01/2020 TECHNIQUE: Single view of the chest is submitted. FINDINGS: Large bore IJ central venous line with its distal tip overlying the SVC. No evidence for pneumothorax . Left-sided subclavian central venous line unchanged in position. Increasing left lower lobe and upper lobe infiltrates. The heart is stable. Hilar and mediastinal structures are within normal limits. Degenerative changes are seen of the dorsal spine. IMPRESSION: 1. Increasing left lower lobe and upper lobe infiltrates.
[2020-04-04] MEDS: NICOTINE 21MG/24HR PATCH TRANSDERM SCH (11:36)
[2020-04-04] MEDS: HYDROPHILIC CREAM 180 GM TUBE TOPICAL SCH (11:37)
--- NOTE | 2020-04-04 11:57 | P.PN ---
Subjective Progress Note Date: 04/04/20 64-year-old female patient presented to the ED for shortness of breath and difficulty breathing. The patient has chronic pain maintained on a morphine pump on outpatient basis and she hasn't followed up with Dr. Roberts on outpatient basis. Apparently the pain pump was replaced few days back. She is also on a combination of Xanax, gabapentin a [place] in addition to Seroquel. . The patient also has history of hypertension, previous history of CVA, hyperlipidemia, acid reflux and smoking Note that the patient came in for shortness of breath. She denied having any chest pain or palpitation. She denies having any nausea vomiting or abdominal pain. She denied having any headache. No new injury or trauma. No new areas of pain. Note that her initial white cell count was 21.8 and subsequent white cell count was 24.0. The patient had a normal platelet count and a normal hemoglobin of 13.8. Coagulation profile was within normal limits. Nevertheless, the patient was found to be in acute kidney injury. The patient's creatinine was up to 4.12 with a BUN of 29 and the patient's potassium was at 6.4 with a sodium level of 133. Anion gap was only a 10. The lactic acid level was at 3.2 with a calcium level of 7.6. She had an acute hepatocellular injury with a AST of 1741 that subsequently came up to 10/29/2001. She also had a ALT of 1788 and subsequently came at 4690. Troponin was at 0.9. Total protein was 6.2. UA showed +1 protein and +1 glucose. The chest x-ray done in the ED showed no acute cardiopulmonary process. CAT scan of the brain showed no acute process and CAT scan of the abdomen and pelvis done showed a small right-sided pleural effusion and some mild compressive atelectasis of the right lung base. Minimal amount of free fluid in the pelvis. Otherwise negative. EKG was in normal sinus rhythm and there were no acute EKG changes related to hyperkalemia. There is some low voltage EKG and T-wave abnormalities throughout. Note that the patient was treated for the hyperkalemia. The patient was given calcium gluconate and the patient was also given D50 insulin combination and bicarb pushes. The patient was having a low-grade fever of 100.0. The patient was given empiric antibiotic coverage and the patient was covered with a combination of Rocephin and vancomycin. Currently on IV fluids at the rate of 130 mL an hour. The patient was initially admitted to the medical floor and following that the patient was found to be apneic and altered mentally. She was given Narcan. She got transferred to the intensive care unit. She was given IV fluid boluses. The patient started on BiPAP after the blood gases showed an acute hypercapnic respiratory failure. The blood gases was done that showed a pH of 6.98 with a pCO2 of 98 and pO2 of 90 and this was on FiO2 of 40%. the patient is currently on a BiPAP and she is on a Narcan drip at 0.6 mg/hour. On today's evaluation of 03/29/2020, the patient is still lethargic. The patient was taken off the Narcan drip at around midnight and the patient was BiPAP. Nevertheless, the Patient Was Still Hypoventilating. I Repeated the Blood Gases This Morning and Showed a pH of 7.09 with a PCO2 of 71 and PO2 of 73. Based on That, I Restarted the Narcan Drip. I Contacted the Anesthesiologist to Evaluate the Pain Pump. Apparently the Patient Was Taken Total of 7.9 Mg of Morphine through the pump and we did a dose reduction down to 7.0 mg and according to the pain specialist, Dr. Lacy this could've affected the patient's breathing causing significant hypoventilation. The patient was k ept on a BiPAP accordingly. The patient was switched to a BiPAP level of 16/5 cm of water and FiO2 28%. A repeat blood gas showed a pH of 7.19 with a pCO2 of 50 and pO2 of 90. The patient was much more alert and awake yet BiPAP dependent. IV fluids in the form of normal saline at the rate of 130 mL an hour. Cardiac rhythm is sinus. Further workup has been ordered including an ultrasound the kidneys and the liver and addition to a urine drug screen. An additional 1 bolus of fluid will be given to the patient today. Tylenol levels have been less than 10. On 03/30/2020, the patient is still doing poorly. She is lethargic and somnolent while wearing the BiPAP at a pressure of 16/5 cm of water. A repeat blood gases was done this morning the patient continues to have a combination of respiratory and metabolic acidosis. Specifically the pH was 7.21 with a pCO2 of 46 and pO2 of 92. The patient's chest x-ray was also showing some increased interstitial edema. The patient was aggressively resuscitated IV fluids and the patient is in a positive fluid balance of 4.5 L for yesterday and 3.1 L for the day before. In any rate, the patient has not produced significant urine output and urine output is noted of 5-10 mL an hour. On her blood work, the patient become acidotic and the electrolytes today shows her serum bicarbonate was 17 with an anion gap of 11. The BNP is 53 with a creatinine of 4.8 indicating further worsening of the renal function tests. As for the liver function tests, they are improving. The patient was in a shock liver. AST is down to 1794 and ALT is down to 3826 and alkaline phosphatase is within normal at 93. Serum ammonia level is at 54. The patient is off the Narcan drip for now. I asked her anesthesiologist to reevaluate the pain infusion knowing that the morphine pump was used on to 7 mg on a daily basis based on yesterday's evaluation and I'm hoping that we can further cut it down as the patient is a component of respiratory acidosis which could be related to opiates in general. I also discussed the case with nephrology. It's likely the patient will need dialysis if the patient is showing signs of fluid overload and addition to a very low urine output. Noted the patient was given a dose of Lasix 80 mg IV push without much benefit. Based on today's blood work, stress this patient to D5 sodium bicarbonate infusion at the rate of 75 mL an hour. The patient remains on empiric antibiotic coverage with IV Rocephin. A triple lumen catheter was inserted. The CVP was around 14. Do not think at was also inserted. 03/31/2020, the patient is being seen in follow-up. She remains a bit obtunded. Yet she is arousable. Profoundly weak especially in the upper and lower extremities. I noted that she was on the BiPAP throughout the night of the pressure of 16/5 cm of water with an FiO2 of 28%. She was also on a backup rate of 14. She remains on the same respiratory throughout the night and she hasn't been able to trigger the BiPAP machine. As such, I'm still concerned of the possibility of ongoing narcotics causing respiratory suppression. I repeated the blood gases this morning and there was improvement in the acid base status. The patient's pH was at 7.36 with a pCO2 of 45 and a pO2 of 92. She was still receiving a bicarb infusion at the rate of 150 mL an hour. Note that the serum bicarbs up to 26. Renal function is still impaired with a BUN of 54 and creatinine of 5.1. The patient underwent hemodialysis yesterday with a removal of 1 L of fluid and another session of hemodialysis will be done today. The patient is on empiric antibiotic coverage with IV Rocephin. She is also on a low dose norepinephrine for hemodynamic support as needed. Currently she is off the pressors. She was seen by nephrology. Another dose of 80 mg IV Lasix push was given to improve her urine output. The neck fluid balance over the past 24 hours is in the order of 1.4 L positive. The chest x-ray from today, shows hilar and mediastinal structures are within normal limits. There is by basilar infiltrates that are essentially unchanged. There is also scattered senescent parenchymal change. No other abnormalities have been noted. The surgical wound site over the abdominal wall is dry clean and intact. Note that yesterday were able to The Patient's Morphine Infusion to a Total of 5 Mg on a Daily Basis. 04/01/2020, the patient is much more awake and alert compared to yesterday. The patient is spending all night on BiPAP and currently she is taken off the BiPAP and the patient was switched to 3 L of oxygen by nasal cannula. She is able to communicate and she was oriented to time and place. She was on a BiPAP at a pressure of 16/5 cm of water and FiO2 of 28% and the patient was switched to 3 L of oxygen with a pulse ox of 92% and the patient's blood gas showed a pH of 7.38 with a pCO2 of 44 and pO2 of 83. Note that the morphine pain pump has been reduced down to 3.5 mg on a daily basis. The patient underwent hemodialysis yesterday. Despite all this, she continues to have some third spacing edema in all 4 extremities. Urine output is still low and the patient remains on normal saline at rate of 50 mL an hour. Her last hemodialysis from yesterday was completed with a total of 2.5 L of ultrafiltration. The blood work from today showed a bicarb of 28. The BUN is a 51 with a creatinine of 4.66. Shock liver was improving and the patient's liver function is gradually on the decline. Her ammonia level was down to 34. Her white cell count is down to 12.9. Platelet count is at 11. Hemoglobin stable at 11.3. She is receiving empiric antibiotic coverage with IV Rocephin. The patient is also on no pressors. 04/02/2020, the patient is awake and alert and she is following commands and answering questions of 3 L of oxygen by nasal cannula. No respiratory distress. The patient underwent hemodialysis yesterday with a total of 3 L of ultrafiltration. On today's evaluation the volume status is improved significantly. Urine output is no other of 50 mL over the past 24 hours and the patient is not producing much of urine output yet. She is requiring dialysis another session of dialysis will be done today. Her shock liver is improved and LFTs are essentially improving. Platelet counts have dropped down to 42. She has no nausea. No vomiting. No abdominal pain. No right upper quadrant tenderness. The ultrasound of the liver and the gallbladder showed some p ericholecystic fluid and the same finding was identified on the CAT scan of the abdomen. The patient was placed on IV Rocephin. The patient was seen by general surgery. There was a consultation for a cholecystectomy. Nevertheless, I do not think the patient is medically cleared to undergo surgery . She is alert and awake and conscious and her mental status improved considerably. No other significant events overnight. Awaiting another session of dialysis. The white cell count is down to 9.8. The hemoglobin is at 10.6. On 04/03/2020, the patient is feeling well. No specific complaints. Underwent hemodialysis yesterday and another session will be given to her today. I fluids at KVO. She is on 2 L of oxygen by nasal cannula. She is awake and alert. Shock liver is improving. Urine output is order of hypodensities an hour and the patient will need a permacath insertion and later stage. No nausea. No vomiting. No abdominal pain. No altered mentation. No diarrhea. She is tolerating diet. No other significant events overnight. Patient is seen today 04/04/2020 in follow-up on the regular medical floor. She did receive a permanent hemodialysis catheter this morning. Follow-up chest x- ray reveals central venous line of the distal SVC no evidence of pneumothorax. There is increasing left lower lobe and upper lobe infiltrates. He is maintaining O2 saturations in the 90s on 2 L/m per nasal cannula. Blood culture reveals no growth. Sodium 133. Potassium 4.1. Creatinine 4.1. She remains on antibiotics in the form of ceftriaxone. Remains on bronchodilators. Nicotine patch in place Objective - Vital Signs Vital signs: Vital Signs Temp 98.4 F 04/04/20 07:21 Pulse 92 04/04/20 11:19 Resp 18 04/04/20 07:21 BP 138/79 04/04/20 07:21 Pulse Ox 94 L 04/04/20 07:21 Intake & Output 04/03/20 04/04/20 04/04/20 18:59 06:59 18:59 Intake Total 130 1180 100 Output Total 3007 0 Balance -2877 1180 100 Intake: IV 130 80 50 0.9 Normal Saline at 10mL 80 80 /hr as KVO cefTRIAXone 1 gm In 50 Sodium Chloride 0.9% 50 ml @ 100 mls/hr IVPB Q24HR [facility] Rx#:[id number] Oral 1100 50 Output: Urine 7 0 Hemodialysis 3000 Other: Voiding Method Indwelling Catheter Indwelling Catheter Bedside Commode Diaper ABP, PAP, CO, CI - Last Documented Arterial Blood Pressure 137/60 - Exam Gen. appearance is an 64-year-old female patient, awake and alert, and 2 L/m per nasal cannula Head exam was generally normal. There was no scleral icterus or corneal arcus. Mucous membranes were moist. Neck was supple and without jugular venous distension, thyromegaly, or carotid bruits. Carotids were easily palpable bilaterally. There was no adenopathy. Lungs sounds are diminished bilaterally few scattered rhonchi more so on the left lung Cardiac exam revealed the PMI to be normally situated and sized. The rhythm was regular and no extrasystoles were noted during several minutes of auscultation. The first and second heart sounds were normal and physiologic splitting of the second heart sound was noted. There were no murmurs, rubs, clicks, or gallops. Abdominal exam revealed normal bowel sounds. The abdomen was soft, non-tender, and without masses, organomegaly, or appreciable enlargement of the abdominal aorta. The incision over the right abdominal wall is dry clean and intact and there is no active drainage at this point in time. Tisha are all in place. Examination of the extremities revealed easily palpable radial, femoral and pedal pulses. There was no cyanosis, clubbing or and the patient is developing some edema in all 4 extremities more so in the upper extremities bilaterally. Examination of the skin revealed no evidence of significant rashes, suspicious appearing nevi or other concerning lesions. Neurologically the patient is awake and communicating. She is moving all 4 extremities upon stimulation painful stimuli. No focal neurological deficit at this point in time. - Labs CBC & Chem 7: 04/03/20 05:40 04/04/20 05:41 Labs: Abnormal Lab Results - Last 24 Hours (Table) 04/04/20 Range/Units 05:41 Sodium 133 L (135-145) mmol/L BUN 44.0 H (9.0-27.0) mg/dL Creatinine 4.1 H (0.6-1.5) mg/dL Est GFR (CKD-EPI)AfAm 12.7 L (60.0-200.0) Est GFR (CKD-EPI)NonAf 11.0 L (60.0-200.0) BUN/Creatinine Ratio 10.73 L (12.00-20.00) Ratio Calcium 8.0 L (8.7-10.3) mg/dL Microbiology - Last 24 Hours (Table) 03/28/20 12:09 Blood Culture - Final Blood No Growth after 144 hours Assessment and Plan Assessment: 1 acute hypercapnic respiratory failure, CO2 narcosis , Likely secondary to narcotic overdose probably related to increased dosage of the morphine through the pain pump. Recovered and the most recent blood pressure showed improvement and acid base status. No signs of any CO2 narcosis. The most recent blood gas from 04/01/2020 showed a pH of 7.38 with a pCO2 of 44 and pO2 of 83 and this was done and FiO2 of 32%. She shows no confusion. No altered mentation. She is off the BiPAP. Her pain is under good control. 2 acute kidney injury, with oligoria , currently on hemodialysis. Urine output is low. The patient is undergoing dialysis regularly. Permacath placed today 04/04/2020. 3 acute hyperkalemia, recovered, potassium 4.1 4 mild lactic acidosis, improved 5 acute shock liver, recovered 6 chronic pain and the patient has a morphine pain pump in place, currently on a morphine dose of 3.5 mg over 24 hours 7 previous history of CVA without any major neurologic deficits 8 hypertension 9 previous history of syncope 10 chronic back pain with previous history of back surgery in addition to degenerative spine disease in addition to spondylolisthesis and compression fracture 11 smoker 12 hypertension 13 hyperlipidemia 14 acid reflux 15 acute febrile illness, and the patient is currently on empiric antibiotic coverage with a combination of Rocephin and the patient's cultures of been all negative. 16 thrombocytopenia, stable 17 questionable cholecystitis with some pericholecystic fluid Plan The patient was seen and evaluated by Dr. Linares He is currently stable from the pulmonary and critical care standpoint Permacath placed today, postprocedure chest x-ray revealed Remains on ceftriaxone and bronchodilators HD per nephrology I, the cosigning physician, performed a history & physical examination of the patient. Lungs sounds with few scattered rhonchi more so on the left lung. Main taining good O2 saturations in the 90s on 2 L/m per nasal cannula. I discussed the assessment and plan of care with my nurse practitioner, Sharon Rodriguez. I attest to the above note as dictated by her.
--- NOTE | 2020-04-04 12:10 | PCN ---
PROCEDURE NOTE PREOP DIAGNOSIS: Acute on chronic renal failure. PROCEDURE PERFORMED: 1. Placement of 21 cm dialysis catheter right jugular approach ultrasound-guided. 2. Removal of the dialysis catheter femoral approach. SEDATION: Time is 29 minutes. DESCRIPTION OF PROCEDURE: The patient brought to the laborer brush clearing. Right side of the neck and chest was prepped and draped in usual sterile manner with IV sedation and local anesthesia. Ultrasound- guided micropuncture introduced in the right jugular vein. Micropuncture guidewire was passed and 4-Lao dilator advanced on top of the guidewire. Then tunnel was created. Through the tunnel, we brought 21 cm dialysis catheter. After that, the regular guide was passed which was parked in the inferior vena cava under fluoroscopy control. The dilator and sheath were advanced on the top of the guidewire. Through the sheath, we introduced the dialysis catheter. Tip of the catheter in superior vena cava at the junction. Flushed with heparin saline and hep-locked and secured with 3-0 nylon. After that, right groin was prepped and right femoral was removed. Pressure applied. Patient tolerated the procedure well. MMODL / IJN: [id number] /
--- NOTE | 2020-04-04 15:13 | PN ---
PROGRESS NOTE Patient is seen for followup for acute kidney injury. She is currently maintained on hemodialysis. Patient did have a new catheter placed this morning. She will be dialyzed again tomorrow. Urine output remains low. EXAMINATION: Today patient is awake, comfortable, she is not in any acute distress. Blood pressure is 138/79, heart rate 90 per minute, she is afebrile. Examination of the heart S1, S2. Examination of the lungs, bilateral breath sounds are heard. Abdomen is soft, nontender. Examination of lower extremities shows edema 1+ bilaterally. WHEEL OF FORTUNE DEALER exam grossly intact. LAB: Show hemoglobin 9.7, sodium 133, potassium 4.1, serum creatinine 4.1 mg/dL. ASSESSMENT: 1. Acute kidney injury, currently hemodialysis dependent. Patient remains oliguric and volume overloaded. We will plan for hemodialysis in a.m. 2. Volume overload, currently improved. 3. Acute hypercapnic respiratory failure, now improved. 4. Elevated liver enzymes associated with hypoperfusion. 5. Hyperkalemia associated with acute kidney injury, use of angiotensin receptor blockers and potassium supplementation, now resolved. PLAN: Repeat hemodialysis in a.m. Proceed with outpatient chair time placement. MMODL / IJN: [id number] /
--- NOTE | 2020-04-04 17:37 | P.PN ---
Subjective Progress Note Date: 04/04/20 CHIEF COMPLAINT: Cholecystitis HISTORY OF PRESENT ILLNESS: The patient is a 64-year-old female who initially presented to emergency room with difficulty breathing and history of a pain pump. Patient developed renal failure including acute liver shock syndrome. Ultrasound gallbladder demonstrated gallbladder sludge and features of cholecystitis. Patient has been transferred from the intensive care unit to the floor. She is tolerating diet. On her tray she has potato chips. She is on a renal diet. She has gotten her dialysis catheter today. REVIEW OF ORGAN SYSTEMS: No nausea vomiting. No fevers or chills. No new chest pain. PHYSICAL EXAM: VITALS: Reviewed CONSTITUTIONAL: Well developed and in no acute distress. EYES: Conjuctivae without sclera icterus. Pupils are equally round and reactive to light. Extraocular movements grossly intact. HEAD, EARS, NOSE, THROAT: Moist buccal mucosa. Hears conversational speech. No nasal drainage. Has sutures along the right earlobe. NECK: Supple. No JV distention. No thyroidomegaly. RESPIRATORY: Non-labored respirations and equal bilateral excursions. No gross wheezes. CARDIOVASCULAR: Palpable 2+ radial pulses. ABDOMEN: Soft. No peritonitis. MUSCULOSKELETAL: No clubbing cyanosis. SKIN: Warm and well perfused with good skin turgor. NEUROLOGIC: Cranial nerves II through XII grossly intact. Sensation upper and extremities intact. No focal or lateralizing signs. PSYCH: Appropriate affect. Alert and oriented to person, place and time. CLINCAL LABS: Reviewed. WBC now 9.2. Platelets less than 60,000. AST and ALT were elevated over 7000 to 8000 trending downward. Creatinine down to 4.1. ASSESSMENT: 1. Abnormal gallbladder ultrasound 2. Cholecystitis 3. Shock liver syndrome 4. Acute renal failure, hemodialysis 5. Chronic pain syndrome PLAN: 1. Patient has hemodialysis catheter and recommend outpatient management for her gallbladder. At this time her symptoms have improved. 2. Patient at this time stable from a general surgical standpoint. Objective - Vital Signs Vital signs: Vital Signs Temp 97.8 F 04/04/20 15:00 Pulse 92 04/04/20 11:19 Resp 22 04/04/20 15:00 BP 165/87 04/04/20 15:00 Pulse Ox 92 L 04/04/20 15:00 Intake & Output 04/03/20 04/04/20 04/04/20 18:59 06:59 18:59 Intake Total 130 1180 100 Output Total 3007 0 Balance -2877 1180 100 Intake: IV 130 80 50 0.9 Normal Saline at 10mL 80 80 /hr as KVO cefTRIAXone 1 gm In 50 Sodium Chloride 0.9% 50 ml @ 100 mls/hr IVPB Q24HR [facility] Rx#:[id number] Oral 1100 50 Output: Urine 7 0 Hemodialysis 3000 Other: Voiding Method Indwelling Catheter Indwelling Catheter Bedside Commode Bedpan Diaper ABP, PAP, CO, CI - Last Documented Arterial Blood Pressure 137/60 - Labs CBC & Chem 7: 04/03/20 05:40 04/04/20 05:41 Labs: Abnormal Lab Results - Last 24 Hours (Table) 04/04/20 Range/Units 05:41 Sodium 133 L (135-145) mmol/L BUN 44.0 H (9.0-27.0) mg/dL Creatinine 4.1 H (0.6-1.5) mg/dL Est GFR (CKD-EPI)AfAm 12.7 L (60.0-200.0) Est GFR (CKD-EPI)NonAf 11.0 L (60.0-200.0) BUN/Creatinine Ratio 10.73 L (12.00-20.00) Ratio Calcium 8.0 L (8.7-10.3) mg/dL Microbiology - Last 24 Hours (Table) 03/28/20 12:09 Blood Culture - Final Blood No Growth after 144 hours Assessment and Plan (1) Acute renal failure Current Visit: Yes Status: Acute Code(s): N17.9 - ACUTE KIDNEY FAILURE, UNSPECIFIED SNOMED Code(s): 94299083 (2) Hepatitis Current Visit: Yes Status: Acute Code(s): K75.9 - INFLAMMATORY LIVER DISEASE, UNSPECIFIED SNOMED Code(s): 676315078 (3) Sepsis Current Visit: Yes Status: Acute Code(s): A41.9 - SEPSIS, UNSPECIFIED ORGANISM SNOMED Code(s): 22751759 (4) Chronic pain Current Visit: No Status: Acute Code(s): G89.29 - OTHER CHRONIC PAIN SNOMED Code(s): 45808285 (5) Fall Current Visit: No Status: Acute Code(s): W19.XXXA - UNSPECIFIED FALL, INITIAL ENCOUNTER SNOMED Code(s): 4288831 (6) GERD (gastroesophageal reflux disease) Current Visit: No Status: Acute Code(s): K21.9 - GASTRO-ESOPHAGEAL REFLUX DISEASE WITHOUT ESOPHAGITIS SNOMED Code(s): 587196478
[2020-04-04] MEDS: GABAPENTIN 300 MG CAP PO SCH (20:15)
--- NOTE | 2020-04-05 01:56 | PN ---
PROGRESS NOTE DATE OF SERVICE: 04/04/2020 REASON FOR FOLLOWUP: Leukocytosis and acute cholecystitis. INTERVAL HISTORY: The patient is afebrile. The patient is breathing comfortably. No chest pain. No shortness of breath or cough. No nausea, no vomiting. No abdominal pain or diarrhea. PHYSICAL EXAMINATION: Blood pressure 161/83 with a pulse of 96, temperature is 97.9. She is 96% on 2 L nasal cannula. General description is a middle-aged female up in the bed in no distress. RESPIRATORY SYSTEM: Unlabored breathing, clear to auscultation anteriorly. HEART: S1, S2. Regular rate and rhythm. ABDOMEN: Soft, no tenderness. LABS: Hemoglobin 9.7, white count 9.2. Creatinine is 4.1. DIAGNOSTIC IMPRESSION AND PLAN: Patient with elevated white count multifactorial in this patient with possible component of cholecystitis is being treated medically on Rocephin. White count normalized, to continue to finish therapy with short course of oral antibiotic. Continue supportive care. MMODL / IJN: [id number] /
[2020-04-05] MEDS: IPRATROPIUM-ALBUTEROL 3 ML NEB INHALATION SCH ×4 (09:01→20:48)
--- NOTE | 2020-04-05 10:06 | P.PN ---
<FrancoHarriet pringle - Last Filed: 04/05/20 10:02> Subjective Progress Note Date: 04/05/20 CHIEF COMPLAINT: Cholecystitis HISTORY OF PRESENT ILLNESS: Patient is lying in bed comfortably. She is currently getting hemodialysis. We are following patient for cholecystitis with gallbladder wall thickening noted on abdominal ultrasound. She denies any abdominal pain. She is current with tolerating diet. She denies any nausea or vomiting. She did report having a bowel movement. She is afebrile. PHYSICAL EXAM: VITAL SIGNS: Reviewed GENERAL: Well-developed in no acute distress. HEENT: No sclera icterus. Extraocular movements grossly intact. Moist buccal mucosa. Head is atraumatic, normocephalic. Hears conversational speech. No nasal drainage. NECK: Supple without lymphadenopathy. CHEST: Non-labored respirations and equal bilateral excursions. CARDIOVASCULAR: Palpable 2+ radial pulses. ABDOMEN: Soft. Nondistended. Nontender. MUSCULOSKELETAL: No clubbing or cyanosis. NEUROLOGIC: No focal or lateralizing signs. Cranial nerves II through XII grossly intact. PSYCH: Appropriate affect. Alert and oriented to person, place and time. SKIN: Well perfused. Good skin turgor. ASSESSMENT: 1. Abnormal gallbladder ultrasound 2. Cholecystitis 3. Shock liver syndrome 4. Acute renal failure, hemodialysis 5. Chronic pain syndrome PLAN: -Recommend outpatient management for her gallbladder -Patient at this time is stable from a general surgical standpoint Physician Specialist Physicians note has been reviewed by physician. Signing provider agrees with the documented findings, assessment, and plan of care. Objective - Vital Signs Vital signs: Vital Signs Temp 98.0 F 04/05/20 07:05 Pulse 79 04/05/20 07:05 Resp 22 04/05/20 07:05 BP 138/80 04/05/20 07:05 Pulse Ox 90 L 04/05/20 07:05 Intake & Output 04/04/20 04/05/20 04/05/20 18:59 06:59 18:59 Intake Total 100 620 Output Total 0 Balance 100 620 Weight 108 kg Intake: IV 50 120 0.9 Normal Saline at 10mL 120 /hr as KVO Oral 50 500 Output: Urine 0 Other: Voiding Method Bedside Commode Bedside Commode Bedpan Bedpan Diaper Diaper # Voids 2 # Bowel Movements 1 ABP, PAP, CO, CI - Last Documented Arterial Blood Pressure 137/60 - Labs CBC & Chem 7: 04/03/20 05:40 04/04/20 05:41 <Anahy Nguyen - Last Filed: 04/05/20 19:15> Subjective As above. Please see additional recommendations CHIEF COMPLAINT: Cholecystitis HISTORY OF PRESENT ILLNESS: The patient is a 64-year-old female who presented with acute renal failure, liver shock syndrome, sepsis, acute cholecystitis. This patient was hemodynamically unstable including with new comorbidities, cholecystectomy is deferred. No reports of abdominal pain. REVIEW OF ORGAN SYSTEMS: No nausea vomiting. No fevers or chills. No new chest pain. PHYSICAL EXAM: VITALS: Reviewed CONSTITUTIONAL: Well developed and in no acute distress. EYES: Conjuctivae without sclera icterus. Pupils are equally round and reactive to light. Extraocular movements grossly intact. HEAD, EARS, NOSE, THROAT: Moist buccal mucosa. Hears conversational speech. No nasal drainage. Has sutures along the right earlobe. NECK: Supple. Hemodialysis catheter present. RESPIRATORY: Non-labored respirations and equal bilateral excursions. No gross wheezes. CARDIOVASCULAR: Palpable 2+ radial pulses. ABDOMEN: Soft. No peritonitis. MUSCULOSKELETAL: No clubbing cyanosis. SKIN: Warm and well perfused with good skin turgor. NEUROLOGIC: Cranial nerves II through XII grossly intact. Sensation upper and extremities intact. No focal or lateralizing signs. PSYCH: Appropriate affect. Alert and oriented to person, place and time. CLINCAL LABS: No new labs ASSESSMENT: 1. Abnormal gallbladder ultrasound 2. Cholecystitis 3. Shock liver syndrome 4. Acute renal failure, hemodialysis 5. Chronic pain syndrome PLAN: 1. Patient overall stable from a surgical standpoint. 2. Recommend low-fat diet 3. Outpatient management for cholecystectomy. 4. Will sign off. Please reconsult if needed. Objective - Vital Signs Vital signs: Vital Signs Temp 97.8 F 04/05/20 15:00 Pulse 87 04/05/20 16:32 Resp 16 04/05/20 16:32 BP 138/79 04/05/20 15:00 Pulse Ox 94 L 04/05/20 15:00 Intake & Output 04/05/20 04/05/20 04/06/20 06:59 18:59 06:59 Intake Total 620 200 Output Total 0 3000 Balance 620 -2800 Weight 108 kg 108 kg Intake: IV 120 0.9 Normal Saline at 10mL 120 /hr as KVO Oral 500 200 Output: Urine 0 Hemodialysis 3000 Other: Voiding Method Bedside Commode Bedside Commode Bedpan Bedpan Diaper Diaper # Voids 2 1 ABP, PAP, CO, CI - Last Documented Arterial Blood Pressure 137/60 - Labs CBC & Chem 7: 04/03/20 05:40 04/04/20 05:41 Assessment and Plan (1) Acute renal failure Current Visit: Yes Status: Acute Code(s): N17.9 - ACUTE KIDNEY FAILURE, UNSPECIFIED SNOMED Code(s): 36332833 (2) Hepatitis Current Visit: Yes Status: Acute Code(s): K75.9 - INFLAMMATORY LIVER DISEASE, UNSPECIFIED SNOMED Code(s): 328846552 (3) Sepsis Current Visit: Yes Status: Acute Code(s): A41.9 - SEPSIS, UNSPECIFIED ORGANISM SNOMED Code(s): 12035945 (4) Chronic pain Current Visit: No Status: Acute Code(s): G89.29 - OTHER CHRONIC PAIN SNOMED Code(s): 46671752 (5) Fall Current Visit: No Status: Acute Code(s): W19.XXXA - UNSPECIFIED FALL, INITIAL ENCOUNTER SNOMED Code(s): 5487239 (6) GERD (gastroesophageal reflux disease) Current Visit: No Status: Acute Code(s): K21.9 - GASTRO-ESOPHAGEAL REFLUX DISEASE WITHOUT ESOPHAGITIS SNOMED Code(s): 936480533 (7) Morbid obesity due to excess calories Current Visit: Yes Status: Acute Code(s): E66.01 - MORBID (SEVERE) OBESITY DUE TO EXCESS CALORIES SNOMED Code(s): 260128930
[2020-04-05] MEDS: NICOTINE 21MG/24HR PATCH TRANSDERM SCH (11:23)
[2020-04-05] MEDS: CITALOPRAM HYDROBROMIDE 10 MG TAB PO SCH (11:23)
[2020-04-05] MEDS: cloNIDine HCL 0.1 MG TAB PO SCH (11:24)
[2020-04-05] MEDS: FAMOTIDINE 20 MG TAB PO SCH (11:24)
[2020-04-05] MEDS: HYDROPHILIC CREAM 180 GM TUBE TOPICAL SCH (11:24)
--- NOTE | 2020-04-05 12:15 | PN ---
PROGRESS NOTE Patient is seen for followup for acute kidney injury. Currently, she remains hemodialysis dependent. She did have an IJ PermCath placed yesterday. However, there was some bruising noted and patient is complaining of pain. PHYSICAL EXAMINATION: Today blood pressure 138/80, heart rate 79 per minute, she is afebrile. Examination of the heart S1, S2. Examination of the lungs, bilateral breath sounds are heard. Abdomen is soft, nontender. Examination of the lower extremities shows edema 1+ bilaterally. LABS: Show hemoglobin 9.7, sodium 133, potassium 4.1, serum creatinine 4.1 mg/dL. ASSESSMENT: 1. Acute kidney injury, ATN currently hemodialysis dependent. 2. Volume overload, currently improved. 3. Acute hypercapnic respiratory failure, now resolved. 4. Hyperkalemia associated with acute kidney injury, now resolved. PLAN: Continue with hemodialysis as outpatient. Proceed with outpatient chair time placement. We will follow up as outpatient for possible recovery of kidney function. MMODL / IJN: [id number] /
--- NOTE | 2020-04-05 15:41 | P.PN ---
Subjective 64-year-old female was admitted for the last encephalopathy, patient also had acute tubular necrosis and was started on hemodialysis. Patient's ence phalopathy improved. Patient had a morphine pain pump which blew to have contributed to her encephalopathy. Dosing on that pain pump was changed. Patient will transfer out of ICU patient has a temporary hemodialysis catheter . Is complaining of anxiety patient was started on SSRI and as needed b enzodiazepines. 04/05/20 patient is seen on follow-up on surgical floor, alert and appropriate, yoav ropriate verbal responses off longer receiving narcotics. Plan to continue with hemodialysis treatments, had dialysis port inserted. hemodynamically stable, on 2 L saturating above 90%, no fever. Constitutional: Denied any fatigue denied any fever. Cardio vascular: denied any chest pain, palpitations Gastrointestinal denied any nausea vomiting Pulmonary: Denied any shortness of breath cough Neurologic denied any new focal deficits Objective - Vital Signs Vital signs: Vital Signs Temp 97.8 F 04/05/20 15:00 Pulse 99 04/05/20 15:00 Resp 20 04/05/20 15:00 BP 138/79 04/05/20 15:00 Pulse Ox 94 L 04/05/20 15:00 Intake & Output 04/04/20 04/05/20 04/05/20 18:59 06:59 18:59 Intake Total 100 620 200 Output Total 0 3000 Balance 100 620 -2800 Weight 108 kg 108 kg Intake: IV 50 120 0.9 Normal Saline at 10mL 120 /hr as KVO Oral 50 500 200 Output: Urine 0 Hemodialysis 3000 Other: Voiding Method Bedside Commode Bedside Commode Bedside Commode Bedpan Bedpan Bedpan Diaper Diaper Diaper # Voids 2 1 # Bowel Movements 1 ABP, PAP, CO, CI - Last Documented Arterial Blood Pressure 137/60 - Exam PHYSICAL EXAMINATION: GENERAL: The patient is alert and oriented x3, not in any acute distress. Well developed, well nourished. HEENT: Pupils are round and equally reacting to light. EOMI. No scleral icterus. No conjunctival pallor. Normocephalic, atraumatic. No pharyngeal erythema. No thyromegaly. Hematoma of the right earlobe, right-sided dialysis catheter CARDIOVASCULAR: S1 and S2 present. No murmurs, rubs, or gallops. PULMONARY: Chest is clear to auscultation, no wheezing or crackles. ABDOMEN: Soft, nontender, nondistended, normoactive bowel sounds. No palpable organomegaly. MUSCULOSKELETAL: No joint swelling or deformity. EXTREMITIES: No cyanosis, clubbing, or pedal edema. NEUROLOGICAL: Gross neurological examination did not reveal any focal deficits. SKIN: No rashes. - Labs CBC & Chem 7: 04/03/20 05:40 04/04/20 05:41 Assessment and Plan Assessment: -Acute metabolic encephalopathy. Secondary to her medications that is morphine pump [place] Seroquel, gabapentin. improving with decreased dose of narcotic -Chronic pain syndrome with a morphine pain pump that for relocated from the spine to the anterior abdominal wall 3 days prior to admission being followed by Dr. bedolla,-morphine dose decreased -Obesity BMI 34.5 -Severe ischemic hepatitis or shock liver from hypotension-improving -Acute kidney injury likely ATN and worsening-started on hemodialysis March 30, right IJ port inserted -Septic shock and blood pressure dropping down to the 70s systolic. Status post pressor support corrected, currently stable -Chronic L1 compression fracture -Acute hypoxic and hypercapnic respiratory failure responding to now on nasal cannula -Mixed metabolic and respiratory acidosis, improving -Chronic nicotine dependence, patient is a cigarette smoker -Acute COPD exacerbation in a current smoker -Low-grade fever and infection site questionable cholecystitis-on antibiotics. Patient did not undergo cholecystectomy because of hemodynamic instability, plan is for outpatient cholecystectomy. -Essential hypertension-better controlled
--- NOTE | 2020-04-05 15:54 | P.PN ---
Subjective Progress Note Date: 04/04/20 64-year-old female was admitted for the last encephalopathy, patient also had acute tubular necrosis and was started on hemodialysis. Patient's encephalopathy improved. Patient had a morphine pain pump which blew to have contributed to her encephalopathy. Dosing on that pain pump was changed. Patient will transfer out of ICU patient has a temporary hemodialysis catheter . Is complaining of anxiety patient was started on SSRI and as needed benzodiazepines. 04/05/2020 Patient had a hemodialysis catheter no evidence of pneumothorax. patient will be started on Lasix patient is on Rocephin. Constitutional: Denied any fatigue denied any fever. Cardio vascular: denied any chest pain, palpitations Gastrointestinal denied any nausea vomiting Pulmonary: Denied any shortness of breath cough Neurologic denied any new focal deficits All inpatient medications were reviewed and appropriate changes in these medications as dictated in the interval history and assessment and plan. Objective - Vital Signs Vital signs: Vital Signs Temp 97.8 F 04/05/20 15:00 Pulse 99 04/05/20 15:00 Resp 20 04/05/20 15:00 BP 138/79 04/05/20 15:00 Pulse Ox 94 L 04/05/20 15:00 Intake & Output 04/04/20 04/05/20 04/05/20 18:59 06:59 18:59 Intake Total 100 620 200 Output Total 0 3000 Balance 100 620 -2800 Weight 108 kg 108 kg Intake: IV 50 120 0.9 Normal Saline at 10mL 120 /hr as KVO Oral 50 500 200 Output: Urine 0 Hemodialysis 3000 Other: Voiding Method Bedside Commode Bedside Commode Bedside Commode Bedpan Bedpan Bedpan Diaper Diaper Diaper # Voids 2 1 # Bowel Movements 1 ABP, PAP, CO, CI - Last Documented Arterial Blood Pressure 137/60 - Exam PHYSICAL EXAMINATION: GENERAL: The patient is alert and oriented x3, not in any acute distress. Well developed, well nourished. HEENT: Pupils are round and equally reacting to light. EOMI. No scleral icterus. No conjunctival pallor. Normocephalic, atraumatic. No pharyngeal erythema. No thyromegaly. Hematoma of the right earlobe CARDIOVASCULAR: S1 and S2 present. No murmurs, rubs, or gallops. PULMONARY: Chest is clear to auscultation, no wheezing or crackles. ABDOMEN: Soft, nontender, nondistended, normoactive bowel sounds. No palpable organomegaly. MUSCULOSKELETAL: No joint swelling or deformity. EXTREMITIES: No cyanosis, clubbing, or pedal edema. NEUROLOGICAL: Gross neurological examination did not reveal any focal deficits. SKIN: No rashes. - Labs CBC & Chem 7: 04/03/20 05:40 04/04/20 05:41 Assessment and Plan Plan: . -Acute metabolic encephalopathy. Secondary to her medications that is morphine pump [place] Seroquel, gabapentin. -Chronic pain syndrome with a morphine pain pump that for relocated from the spine to the anterior abdominal wall 3 days prior to admission being followed by Dr. bedolla,-morphine dose decreased -Obesity BMI 34.5 -Severe ischemic hepatitis or shock liver from hypotension-improving -Acute kidney injury likely ATN and worsening-started on hemodialysis March 30 -Septic shock and blood pressure dropping down to the 70s systolic. Status post pressor support corrected -Chronic L1 compression fracture -Acute hypoxic and hypercapnic respiratory failure responding to now on nasal cannula -Mixed metabolic and respiratory acidosis -Chronic nicotine dependence, patient is a cigarette smoker -Acute COPD exacerbation in a current smoker -Low-grade fever and infection site questionable cholecystitis-on antibiotics. Patient did not undergo cholecystectomy because of his hemodynamic instability. -Essential hypertension-better controlled
--- NOTE | 2020-04-05 16:32 | IR ---
EXAMINATION TYPE: IR cvc insert central tunneled DATE OF EXAM: 04/04/2020 COMPARISON: NONE HISTORY: Hemodialysis TECHNIQUE: Fluoroscopy. FINDINGS: Fluoroscopic guidance was provided during procedure for performing physician. A total of 0.3 minutes of fluoroscopic time was utilized during the procedure and 34 spot images was acquired. Robin de santiago see operative report for additional details. IMPRESSION: As Above.
[2020-04-05] MEDS: GABAPENTIN 300 MG CAP PO SCH (20:45)
--- NOTE | 2020-04-06 01:44 | PN ---
PROGRESS NOTE DATE OF SERVICE: 04/05/2020 REASON FOR FOLLOWUP: Leukocytosis and possible cholecystitis. INTERVAL HISTORY: The patient is currently afebrile. The patient is breathing comfortably. Denies having any chest pain, shortness of breath or cough. Abdominal pain has improved. No diarrhea. PHYSICAL EXAMINATION: Blood pressure 158/90 with a pulse of 98, temperature 97.3. General description is a middle-aged female up in the bed in no distress. RESPIRATORY SYSTEM: Unlabored breathing, decreased breath sounds at the bases. No wheeze. HEART: S1, S2. Regular rate and rhythm. ABDOMEN: Soft, no tenderness. LABS: Hemoglobin 9.7, white count 9.2, creatinine 4.1. DIAGNOSTIC IMPRESSION AND PLAN: Patient with elevated white count, multifactorial, possible cholecystitis. The patient is currently covered with Rocephin 1 gram daily to continue to finish therapy with short course of oral antibiotic. Continue supportive care. MMODL / IJN: [id number] /
[2020-04-06] MEDS: NICOTINE 21MG/24HR PATCH TRANSDERM SCH (08:10)
[2020-04-06] MEDS: CITALOPRAM HYDROBROMIDE 10 MG TAB PO SCH (08:10)
[2020-04-06] MEDS: cloNIDine HCL 0.1 MG TAB PO SCH (08:10)
[2020-04-06] MEDS: FAMOTIDINE 20 MG TAB PO SCH (08:10)
[2020-04-06] MEDS: HYDROPHILIC CREAM 180 GM TUBE TOPICAL SCH (08:11)
[2020-04-06] MEDS: IPRATROPIUM-ALBUTEROL 3 ML NEB INHALATION SCH ×4 (08:17→19:23)
[2020-04-06 09:31] LABS: African American GFR (CKD) 12.7 (60.0-200.0); Anion Gap 11.1 mmol/L (4.00-12.00); BUN/Creat Ratio 10.24 Ratio (12.00-20.00); Calcium 7.9 mg/dL (8.7-10.3); Carbon Dioxide 23.9 mmol/L (21.6-31.8); Potassium 4.2 mmol/L (3.5-5.5)
[2020-04-06] MEDS ORDERED: ONDANSETRON 4 MG/2 ML VIAL IVP PRN (10:35)
[2020-04-06] MEDS: carvediloL 3.125 MG TAB PO SCH ×2 (12:12→16:07)
[2020-04-06] MEDS: PANTOPRAZOLE 40 MG/10 ML VIAL IVP SCH (12:12)
--- NOTE | 2020-04-06 12:16 | XR ---
EXAMINATION TYPE: XR chest 1V DATE OF EXAM: 04/06/2020 HISTORY: Shortness of breath. COMPARISON: 04/04/2020 TECHNIQUE: Single view of the chest is submitted. FINDINGS: Demonstrated are scattered senescent parenchymal change. Patchy upper lobe and perihilar and left basilar infiltrates remain unchanged. Central venous lines a re unchanged. The heart is stable. Hilar and mediastinal structures are within normal limits. Degenerative changes are seen of the dorsal spine. IMPRESSION: 1. Patchy upper lobe and perihilar and left basilar infiltrates remain unchanged.
--- NOTE | 2020-04-06 14:14 | XR ---
EXAMINATION TYPE: XR abdomen acute w cxr DATE OF EXAM: 04/06/2020 COMPARISON: NONE HISTORY: Pain TECHNIQUE: Single view of the chest and 2 views of the abdomen are submitted. FINDINGS: Single view of the chest demonstrates diffuse reticulonodular infiltrates throughout both lung galo with more consolidative process left lower lobe. Correlate for pneumonia. There is no evidence for pneumoperitoneum. The bowel gas pattern is unremarkable as there is air throughout nondilated small and large bowel. No sizeable air fluid levels.No mass effects are seen. No unusual calcifications. IMPRESSION: 1. Reticulonodular infiltrates throughout both lung galo. 2. Unremarkable abdomen.
--- NOTE | 2020-04-06 16:19 | P.PN ---
Subjective 64-year-old female was admitted for the last encephalopathy, patient also had acute tubular necrosis and was started on hemodialysis. Patient's ence phalopathy improved. Patient had a morphine pain pump which blew to have contributed to her encephalopathy. Dosing on that pain pump was changed. Patient will transfer out of ICU patient has a temporary hemodialysis catheter . Is complaining of anxiety patient was started on SSRI and as needed b enzodiazepines. 04/05/2020 Patient had a hemodialysis catheter no evidence of pneumothorax. patient will be started on Lasix patient is on Rocephin. 04/06/2020 Patient is complaining of severe nausea, obtain abdominal x-rays did not show any bowel obstruction chest x-ray still showing reticulonodular opacities consistent with pulmonary edema. Patient will undergo hemodialysis most probably again tomorrow possibility of discharge tomorrow or day after depending on her clinical condition Constitutional: Denied any fatigue denied any fever. Cardio vascular: denied any chest pain, palpitations Gastrointestinal denied any nausea vomiting Pulmonary: Denied any shortness of breath cough Neurologic denied any new focal deficits All inpatient medications were reviewed and appropriate changes in these medications as dictated in the interval history and assessment and plan. Objective - Vital Signs Vital signs: Vital Signs Temp 97.8 F 04/06/20 15:00 Pulse 87 04/06/20 15:45 Resp 18 04/06/20 15:00 BP 158/95 04/06/20 15:00 Pulse Ox 97 04/06/20 15:00 Intake & Output 04/05/20 04/06/20 04/06/20 18:59 06:59 18:59 Intake Total 200 690 50 Output Total 3000 Balance -2800 690 50 Weight 108 kg 110 kg Intake: IV 10 50 0.9 Normal Saline at 10mL 10 /hr as KVO cefTRIAXone 1 gm In 50 Sodium Chloride 0.9% 50 ml @ 100 mls/hr IVPB Q24HR [facility] Rx#:[id number] Oral 200 680 Output: Hemodialysis 3000 Other: Voiding Method Bedside Commode Bedside Commode Bedpan Bedpan Diaper Diaper # Voids 1 # [place] 2 ABP, PAP, CO, CI - Last Documented Arterial Blood Pressure 137/60 - Exam PHYSICAL EXAMINATION: GENERAL: The patient is alert and oriented x3, not in any acute distress. Well developed, well nourished. HEENT: Pupils are round and equally reacting to light. EOMI. No scleral icterus. No conjunctival pallor. Normocephalic, atraumatic. No pharyngeal erythema. No thyromegaly. Hematoma of the right earlobe CARDIOVASCULAR: S1 and S2 present. No murmurs, rubs, or gallops. PULMONARY: Chest is clear to auscultation, no wheezing or crackles. ABDOMEN: Soft, nontender, nondistended, normoactive bowel sounds. No palpable organomegaly. MUSCULOSKELETAL: No joint swelling or deformity. EXTREMITIES: No cyanosis, clubbing, or pedal edema. NEUROLOGICAL: Gross neurological examination did not reveal any focal deficits. SKIN: No rashes. - Labs CBC & Chem 7: 04/03/20 05:40 04/06/20 05:35 Labs: Abnormal Lab Results - Last 24 Hours (Table) 04/06/20 Range/Units 05:35 Sodium 128 L (135-145) mmol/L Chloride 93 L (96-109) mmol/L BUN 42.0 H (9.0-27.0) mg/dL Creatinine 4.1 H (0.6-1.5) mg/dL Est GFR (CKD-EPI)AfAm 12.7 L (60.0-200.0) Est GFR (CKD-EPI)NonAf 11.0 L (60.0-200.0) BUN/Creatinine Ratio 10.24 L (12.00-20.00) Ratio Calcium 7.9 L (8.7-10.3) mg/dL Assessment and Plan Plan: . -Acute metabolic encephalopathy. Secondary to her medications that is morphine pump [place] Seroquel, gabapentin. -Chronic pain syndrome with a morphine pain pump that for relocated from the spine to the anterior abdominal wall 3 days prior to admission being followed by Dr. bedolla,-morphine dose decreased -Obesity BMI 34.5 -Severe ischemic hepatitis or shock liver from hypotension-improving -Acute kidney injury likely ATN and worsening-started on hemodialysis March 30 -Septic shock and blood pressure dropping down to the 70s systolic. Status post pressor support corrected -Chronic L1 compression fracture -Acute hypoxic and hypercapnic respiratory failure responding to now on nasal cannula -Mixed metabolic and respiratory acidosis -Chronic nicotine dependence, patient is a cigarette smoker -Acute COPD exacerbation in a current smoker -Low-grade fever and infection site questionable cholecystitis-on antibiotics. Patient did not undergo cholecystectomy because of his hemodynamic instability. -Essential hypertension-better controlled
--- NOTE | 2020-04-06 17:09 | PN ---
PROGRESS NOTE Patient is seen for followup for acute kidney injury, currently hemodialysis dependent. She also has significant volume overload. This morning patient is complaining of nausea, which did not get better from yesterday. She is also complaining of feeling weak. No significant worsening of shortness of breath. No chest pains. PHYSICAL EXAMINATION: Today, blood pressure was 158/89, heart rate 90 per minute, she is afebrile. Examination of the heart S1, S2. Examination of the lungs, bilateral breath sounds are heard. Decreased breath sounds at the bases. Abdomen is soft, nontender. Examination of the lower extremities shows edema 2+ bilaterally. DENT REMOVER exam grossly intact. LABS: Show hemoglobin 9.7, sodium 128, potassium 4.2, serum creatinine 4.1. ASSESSMENT: 1. Acute kidney injury hemodialysis dependent, currently with no significant urine output maintained. Patient is currently maintained on a Sunday, Sunday, Sunday schedule. We will dialyze her again tomorrow. 2. Volume overload, currently improved. Patient remains with significant edema. We will continue to increase UF as tolerated with dialysis. 3. Nausea. Rule out bowel obstruction. 4. Acute hypercapnic respiratory failure, now resolved. PLAN: Hemodialysis in a.m. with goal UF 3-4 L as tolerated. Patient will continue with dialysis as outpatient. We will also continue to monitor for recovery of renal function. MMODL / IJN: [id number] /
[2020-04-06] MEDS: GABAPENTIN 300 MG CAP PO SCH (20:26)
--- NOTE | 2020-04-07 00:09 | PN ---
PROGRESS NOTE DATE OF SERVICE: 04/06/2020 REASON FOR FOLLOWUP: Acute cholecystitis with leukocytosis. INTERVAL HISTORY: The patient is currently afebrile. The patient is breathing comfortably. Denies having any chest pain or shortness of breath or cough. No nausea, no vomiting. No abdominal pain or diarrhea. PHYSICAL EXAMINATION: Blood pressure 156/90 with a pulse of 86, temperature 97.5. She is 96% on 4 L nasal cannula. General description is a middle-aged female lying in bed in no distress. RESPIRATORY SYSTEM: Unlabored breathing, decreased breath sounds at bases. No wheeze. HEART: S1, S2. Regular rate and rhythm. ABDOMEN: Soft, no tenderness. LABS: Hemoglobin 9.7, white count 9.2, BUN of 42, creatinine 4.1. DIAGNOSTIC IMPRESSION AND PLAN: Patient with leukocytosis, multifactorial in this patient who did have possible component of cholecystitis, being treated medically on Rocephin to continue. Continue with supportive care. MMODL / IJN: [id number] /
[2020-04-07] MEDS ORDERED: DOCUSATE 100 MG CAP PO PRN (07:50)
[2020-04-07] MEDS: CITALOPRAM HYDROBROMIDE 10 MG TAB PO SCH (07:54)
[2020-04-07] MEDS: PANTOPRAZOLE 40 MG/10 ML VIAL IVP SCH (07:54)
[2020-04-07] MEDS: NICOTINE 21MG/24HR PATCH TRANSDERM SCH (07:54)
[2020-04-07] MEDS: HYDROPHILIC CREAM 180 GM TUBE TOPICAL SCH (07:55)
[2020-04-07] MEDS: carvediloL 3.125 MG TAB PO SCH ×2 (07:58→16:50)
[2020-04-07] MEDS: IPRATROPIUM-ALBUTEROL 3 ML NEB INHALATION SCH ×4 (08:33→19:39)
--- NOTE | 2020-04-07 09:12 | P.PN ---
Subjective 64-year-old female was admitted for the last encephalopathy, patient also had acute tubular necrosis and was started on hemodialysis. Patient's ence phalopathy improved. Patient had a morphine pain pump which blew to have contributed to her encephalopathy. Dosing on that pain pump was changed. Patient will transfer out of ICU patient has a temporary hemodialysis catheter . Is complaining of anxiety patient was started on SSRI and as needed b enzodiazepines. 04/05/2020 Patient had a hemodialysis catheter no evidence of pneumothorax. patient will be started on Lasix patient is on Rocephin. 04/06/2020 Patient is complaining of severe nausea, obtain abdominal x-rays did not show any bowel obstruction chest x-ray still showing reticulonodular opacities consistent with pulmonary edema. Patient will undergo hemodialysis most probably again tomorrow possibility of discharge tomorrow or day after depending on her clinical condition 04/07/2020 Patient can easily on 4 L will wean the oxygen off patient still has significant bilateral crackles. Patient will undergo hemodialysis today, patient can be discharged probably in a day 2 once we wean her off oxygen patient is going home. Constitutional: Denied any fatigue denied any fever. Cardio vascular: denied any chest pain, palpitations Gastrointestinal denied any nausea vomiting Pulmonary: Denied any shortness of breath cough Neurologic denied any new focal deficits All inpatient medications were reviewed and appropriate changes in these medications as dictated in the interval history and assessment and plan. Objective - Vital Signs Vital signs: Vital Signs Temp 97.4 F L 04/07/20 07:00 Pulse 86 04/07/20 08:42 Resp 18 04/07/20 00:00 BP 146/82 04/07/20 07:00 Pulse Ox 92 L 04/07/20 02:29 Intake & Output 04/06/20 04/07/20 04/07/20 18:59 06:59 18:59 Intake Total 50 30 Balance 50 30 Weight 110 kg Intake: IV 50 30 0.9 Normal Saline at 10mL 30 /hr as KVO cefTRIAXone 1 gm In 50 Sodium Chloride 0.9% 50 ml @ 100 mls/hr IVPB Q24HR [facility] Rx#:[id number] Other: Voiding Method Bedside Commode Bedside Commode Bedpan Bedpan Diaper # Voids 1 # Emeses 2 ABP, PAP, CO, CI - Last Documented Arterial Blood Pressure 137/60 - Exam PHYSICAL EXAMINATION: GENERAL: The patient is alert and oriented x3, not in any acute distress. Well developed, well nourished. HEENT: Pupils are round and equally reacting to light. EOMI. No scleral icterus. No conjunctival pallor. Normocephalic, atraumatic. No pharyngeal erythema. No thyromegaly. Hematoma of the right earlobe CARDIOVASCULAR: S1 and S2 present. No murmurs, rubs, or gallops. PULMONARY: Chest is clear to auscultation, no wheezing or crackles. ABDOMEN: Soft, nontender, nondistended, normoactive bowel sounds. No palpable or ganomegaly. MUSCULOSKELETAL: No joint swelling or deformity. EXTREMITIES: No cyanosis, clubbing, or pedal edema. NEUROLOGICAL: Gross neurological examination did not reveal any focal deficits. SKIN: No rashes. - Labs CBC & Chem 7: 04/03/20 05:40 04/06/20 05:35 Labs: Abnormal Lab Results - Last 24 Hours (Table) 04/06/20 Range/Units 05:35 Sodium 128 L (135-145) mmol/L Chloride 93 L (96-109) mmol/L BUN 42.0 H (9.0-27.0) mg/dL Creatinine 4.1 H (0.6-1.5) mg/dL Est GFR (CKD-EPI)AfAm 12.7 L (60.0-200.0) Est GFR (CKD-EPI)NonAf 11.0 L (60.0-200.0) BUN/Creatinine Ratio 10.24 L (12.00-20.00) Ratio Calcium 7.9 L (8.7-10.3) mg/dL Assessment and Plan Plan: . -Acute metabolic encephalopathy. Secondary to her medications that is morphine pump [place] Seroquel, gabapentin. -Chronic pain syndrome with a morphine pain pump that for relocated from the spine to the anterior abdominal wall 3 days prior to admission being followed by Dr. bedolla,-morphine dose decreased -Obesity BMI 34.5 -Severe ischemic hepatitis or shock liver from hypotension-improving -Acute kidney injury likely ATN and worsening-started on hemodialysis March 30 -Septic shock and blood pressure dropping down to the 70s systolic. Status post pressor , patient blood pressure is stable at this time -Chronic L1 compression fracture -Acute hypoxic and hypercapnic respiratory failure responding to now on nasal cannula, patient has significant crackles may need hemodialysis to get her off oxygen patient doesn't use any oxygen at home present in 4 L -Mixed metabolic and respiratory acidosis -Chronic nicotine dependence, patient is a cigarette smoker -Acute COPD exacerbation in a current smoker -patient had continued leukocytosis believed to be secondary to cholecystitis appear to be chronic and will need intervention when she is more stable -Essential hypertension-better controlled
--- NOTE | 2020-04-07 15:32 | PN ---
PROGRESS NOTE Patient is seen for followup for acute kidney injury. She is maintained on hemodialysis, currently on a Sunday, Sunday, Sunday schedule. No significant complaints today. Her abdominal pain seems to have improved. On examination, blood pressure 146/82, heart rate 84 per minute. She is afebrile. EXAMINATION OF THE HEART: S1 and S2. EXAMINATION OF LUNGS: Bilateral breath sounds are heard. ABDOMEN: Soft, non-tender. Examination of lower extremities shows edema 2+ bilaterally. UNIT LEADER exam is grossly intact. Labs from yesterday show sodium of 128, serum creatinine 4.1. ASSESSMENT: 1. Acute kidney injury, currently hemodialysis-dependent. Continue to maintain patient on dialysis on a Sunday, Sunday, Sunday schedule. She will continue as outpatient as well. 2. Volume overload, currently improving. 3. Nausea; seems to have improved. No evidence of bowel obstruction on acute abdominal series. 4. Acute hypoxic and hypercapnic respiratory failure, now resolved. PLAN: Repeat hemodialysis today. Goal UF about 3 L as tolerated. MMODL / IJN: [id number] /
[2020-04-07] MEDS: GABAPENTIN 300 MG CAP PO SCH (20:09)
--- NOTE | 2020-04-08 01:21 | PN ---
PROGRESS NOTE DATE OF SERVICE: 04/07/2020 REASON FOR FOLLOWUP: Leukocytosis and possible cholecystitis. INTERVAL HISTORY: The patient is currently afebrile. The patient is breathing comfortably. Denies having any chest pain. No shortness of breath. Minimal cough. Some discomfort right upper quadrant area. No nausea, no vomiting. No abdominal pain or diarrhea. PHYSICAL EXAMINATION: Blood pressure 150/78 with a pulse of 85, temperature 97.6. She is 100% on 4 L nasal cannula. General description is a middle-aged female lying in bed in no distress. RESPIRATORY SYSTEM: Unlabored breathing, decreased breath sounds at the bases. No wheeze. HEART: S1, S2. Regular rate and rhythm. ABDOMEN: Soft, no tenderness. LABS: Hemoglobin 9.7, white count 9.2. Creatinine is 4.1. DIAGNOSTIC IMPRESSION AND PLAN: Patient with elevated white count multifactorial in this patient who did have a component of possible cholecystitis being treated medically. White count is normal with Rocephin may consider short course of oral Ceftin on discharge. Continue with supportive care. MMODL / IJN: [id number] /
[2020-04-08 07:24] LABS: African American GFR (CKD) 17 (>60 ml/min/1.73 sqM); Anion Gap 2 mmol/L; Blood Urea Nitrogen 36 mg/dL (7-17); Calcium 7.9 mg/dL (8.4-10.2); Carbon Dioxide 27 mmol/L (22-30); Chloride 98 mmol/L (98-107); Glucose 119 mg/dL (74-99); Non-African American GFR(CKD) 15 (>60 ml/min/1.73 sqM); Sodium 127 mmol/L (137-145)
[2020-04-08] MEDS: PANTOPRAZOLE 40 MG/10 ML VIAL IVP SCH (07:56)
[2020-04-08] MEDS: carvediloL 3.125 MG TAB PO SCH ×2 (07:56→17:16)
[2020-04-08] MEDS: CITALOPRAM HYDROBROMIDE 10 MG TAB PO SCH (07:57)
[2020-04-08] MEDS: NICOTINE 21MG/24HR PATCH TRANSDERM SCH (07:57)
[2020-04-08] MEDS: HYDROPHILIC CREAM 180 GM TUBE TOPICAL SCH (07:57)
[2020-04-08] MEDS: IPRATROPIUM-ALBUTEROL 3 ML NEB INHALATION SCH ×4 (08:01→19:21)
--- NOTE | 2020-04-08 14:28 | PN ---
PROGRESS NOTE Patient is seen for followup for acute kidney injury, currently hemodialysis dependent. She is sitting up in a chair. She is complaining of soreness at the site of the PermCath. No significant shortness of breath noted. PHYSICAL EXAMINATION: On examination today, blood pressure was 124/72, heart rate 81 per minute. Patient is afebrile. Examination of the heart S1, S2. Examination of the lungs, bilateral breath sounds are heard. Abdomen is soft, nontender. Examination of the lower extremities shows edema 2+ bilaterally. DIGITAL STRATEGY MANAGER exam grossly intact. Some bruising is noted at the site of the catheter. LABS: Show sodium 127, potassium 4.0, chloride 98, BUN 36, creatinine 3.17. ASSESSMENT: 1. Acute kidney injury, currently hemodialysis dependent and oliguric. Patient will continue with dialysis as outpatient. 2. Hypervolemic, hyponatremia, expect improvement with dialysis. 3. Volume overload, currently improving. 4. Nausea, currently improved. 5. Acute hypoxic and hypercapnic respiratory failure, now resolved. PLAN: Hemodialysis today as patient may be on a Sunday, , Sunday schedule as outpatient. We will only dialyze her for about 2 hours today. Currently looking for outpatient placement based on the senior care. MMODL / IJN: [id number] /
--- NOTE | 2020-04-08 14:46 | PN ---
PROGRESS NOTE DATE OF SERVICE: 04/08/2020 REASON FOR FOLLOWUP: Leukocytosis and cholecystitis. INTERVAL HISTORY: The patient is breathing comfortably. Denies any chest pain. No abdominal pain. No nausea, no vomiting, no diarrhea. PHYSICAL EXAMINATION: Blood pressure 124/70 with a pulse of 81, temperature is 97.7, she is 97% on 2 L nasal cannula. General description is a middle-aged female, lying in bed in no distress. RESPIRATORY SYSTEM: Unlabored breathing, clear to auscultation anteriorly. HEART: S1, S2. Regular rate and rhythm. ABDOMEN: Soft, no tenderness. LABS: Creatinine 3.17. CBC was done. Blood culture has been negative. DIAGNOSTIC IMPRESSION AND PLAN: Patient with elevated white count is multifactorial, possible component of 110. This patient culture has been negative and normal 03/2011 is a high antibiotic with short course of oral Ceftin on discharge. Continue supportive care. MMODL / IJN: [id number] /
[2020-04-08] MEDS ORDERED: MIDODRINE 5 MG TAB PO SCH (17:30)
--- NOTE | 2020-04-08 20:12 | P.PN ---
Progress Note - Text Progress Note Date: 04/08/20 Chief Complaint: Difficulty breathing Hospital course: Patient is 64-year-old female, was family doctor is Dr. pam Baker. Chronic stable medical conditions include chronic pain currently on a morphine pump , hypertension, CHF, and prior stroke who presented to the emergency department . Per the ER report patient is having difficulty breathing. Daughter called and found the same. Patient had a pain pump replaced 3 days ago. She follows with Dr. Hutton for pain pump. 3 days also she states she started having a fever. She has long-standing smoker. Baseline cough. No increased shortness of breath. Did receive some Narcan in the ER as she was a bit lethargic. When she got to the floor she again became lethargic blood gases sitting up pH of 6.88. It seemed to be a mixed respiratory and metabolic acidosis. Patient was therefore moved to the ICU with the orders for BiPAP. When I came to the ICU patient was using a BiPAP and was able to answer questions. She had a temperature of 100 the ER. On the floor she dropped respiratory rate also. She is put on a Narcan drip. Patient admitted with-metabolic encephalopathy likely from pain medications, acute hypoxic and hypercapnic respiratory failure from medications, acute kidney injury, acute ischemic hepatitis, septic shock, mixed metabolic and respiratory acidosis. Admitted ICU. Patient is put on a BiPAP. IV fluids. Levo fed. Bicarbonate. I spoke to Dr. Agee from neurology last night. Patient had his pain pump relocated from the spine to the anterior abdominal wound. It is intrathecal. Dose of morphine was not changed. Patient also was placed on Narcan drip. To which she responded well. Started on hemodialysis March 30. Admitted with-acute metabolic encephalopathy felt to be multifactorial, severe ischemic hepatitis from hypotension, acute kidney injury, likely ATN started on hemodialysis, septic shock, acute hypoxic and hypercapnic respiratory failure, metabolic and respiratory acidosis, COPD exacerbation. Empirically put on antibiotics source of infection unclear. Morphine dose in the pain pump decreased by Dr. Vee.patient felt to have cholecystitis. because of being clinically unstable decided not to proceed with any surgery. Patient responded to antibiotics. Today-patient on the medical floor. Tired. Getting physical therapy.eating about 50% of her meals. Pulse ox reading better in the big toe has supposed of the hand fingers.FiO2 dropped to 2 L. Review of systems: Was done for constitutional, cardiovascular, GI, pulmonary. relevant finding as above Active Medications Albuterol/Ipratropium (Ipratropium-Albuterol 3 Ml Neb) 3 ml INHALATION RT-Q2H PRN PRN Reason: Shortness Of Breath Or Wheezing Albuterol/Ipratropium (Ipratropium-Albuterol 3 Ml Neb) 3 ml INHALATION RT-QID [facility] Last Admin: 04/08/20 19:21 Dose: Not Given Documented by: Alprazolam (Alprazolam 0.25 Mg Tab) 0.25 mg PO BID PRN PRN Reason: Anxiety Last Admin: 04/04/20 20:15 Dose: 0.25 mg Documented by: Carvedilol (Carvedilol 3.125 Mg Tab) 3.125 mg PO BID-W/MEALS [facility] Last Admin: 04/08/20 17:16 Dose: 3.125 mg Documented by: Citalopram Hydrobromide (Citalopram Hydrobromide 10 Mg Tab) 10 mg PO DAILY [facility] Last Admin: 04/08/20 07:57 Dose: 10 mg Documented by: Docusate Sodium (Docusate 100 Mg Cap) 100 mg PO BID PRN PRN Reason: Constipation Gabapentin (Gabapentin 300 Mg Cap) 300 mg PO HS [facility] Last Admin: 04/07/20 20:09 Dose: 300 mg Documented by: Ceftriaxone Sodium 1 gm/ (Sodium Chloride) 50 mls @ 100 mls/hr IVPB Q24HR [facility] Last Admin: 04/08/20 07:57 Dose: 100 mls/hr Documented by: Multi-Ingred Cream/Lotion/Oil/Oint (Hydrophilic Cream 180 Gm Tube) 1 applic TOPICAL DAILY [facility] Last Admin: 04/08/20 07:57 Dose: 1 applic Documented by: Naloxone HCl (Naloxone 0.4 Mg/Ml 1 Ml Vial) 0.2 mg IVP Q2M PRN PRN Reason: Opioid Reversal Last Admin: 03/28/20 17:23 Dose: 0.2 mg Documented by: Nicotine (Nicotine 21mg/24hr Patch) 1 patch TRANSDERM DAILY [facility] Last Admin: 04/08/20 07:57 Dose: 1 patch Documented by: Ondansetron HCl (Ondansetron 4 Mg/2 Ml Vial) 4 mg IVP Q6HR PRN PRN Reason: Nausea And Vomiting Last Admin: 04/06/20 16:07 Dose: 4 mg Documented by: Pantoprazole Sodium (Pantoprazole 40 Mg Tablet) 40 mg PO DAILY [facility] Ropinirole HCl (Ropinirole Hcl 1 Mg Tab) 1 mg PO HS [facility] Last Admin: 04/07/20 20:10 Dose: 1 mg Documented by: Physical examination: VITAL SIGNS: afebrile, 90, 17, 120/72, 93% on 2 L GENERAL: laying in bed, tired but arousable does answer questions EYES: Pupils equal. Conjunctiva normal. HEENT: External appearance of nose and ears normal, oral cavity grossly normal. NECK: JVD unable to assess; masses not palpable. HEART: First and second heart sounds are normal; no edema. LUNGS: Respiratory rate increased, diminished breath sounds ABDOMEN: Soft, nontender, liver spleen not palpable, no masses palpable. Right abdominal incision site healing well with the underlying pain pump PSYCH: tired, 3 questionss INVESTIGATIONS, reviewed in the clinical context: white count 9.2 hemoglobin 9.7 platelets 58 potassium 4 Admission testing White count 21.8 hemoglobin 13.6 increased neutrophils potassium 6.4 bun 29 cre atinine 4.12 Lactic acid 3.2 troponin I 0.911 AST 1741, ALT 1788 Hepatitis B surface antigen, core IgM antibody, hepatitis C IgG antibody all nonreactive ABG-pH 6.98, pCO2 98, bicarb 23 acetaminophen level less than 10 UA-negative for nitrate and leukoesterase EKG tracing personally reviewed by me-normal sinus rhythm some T-wave changes Computed tomography scan of the abdomen and pelvis-nonspecific Computed tomography scan of the brain-unremarkable Chest x-ray film personally reviewed by me-no obvious infiltrate, some elevations right diaphragm Abdominal ultrasound-taken gallbladder wall suggestive pericholecystic fluid, CBD 7 mm C. difficile-negative COVID 19 PCR not detected Hepatitis A IgM antibody nonreactive -Blood culture negative Previous testing: renal function is normal in December 2018 Assessment: -Acute metabolic encephalopathy. In the setting of acute renal failure patients on Neurontin [place] Seroquel Xanax Requip and viibryd. Received Narcan -improved -Chronic pain syndrome with a morphine pain pump that for relocated from the spine to the anterior abdominal wall 3 days prior to admission being followed by Dr. bedolla,-morphine dose decreased -Obesity BMI 34.5 -Severe ischemic hepatitis from hypotension-improving -Acute kidney injury likely ATN and worsening-started on hemodialysis March 30 -Septic shock and blood pressure dropping down to the 70s systolic. Status post pressor support corrected -Chronic L1 compression fracture -Acute hypoxic and hypercapnic respiratory failure responding to now on nasal cannula -Mixed metabolic and respiratory acidosis -Chronic nicotine dependence, patient is a cigarette smoker -Acute COPD exacerbation in a current smoker -Low-grade fever and infection site questionable cholecystitis-on antibiotics. patient managed with antibiotics. Surgery postponed. To be done when patient is most stable. -Essential hypertension-better controlled Plan: patient is being prepared for discharge. community worker informed be that patie nt's family is changed third choice of the rehab place. Options are limited. Discharge was canceled.incentive spirometer to be used.
[2020-04-08] MEDS: GABAPENTIN 300 MG CAP PO SCH (20:55)
[2020-04-09] MEDS: CITALOPRAM HYDROBROMIDE 10 MG TAB PO SCH (08:24)
[2020-04-09] MEDS: PANTOPRAZOLE 40 MG TABLET PO SCH (08:25)
[2020-04-09] MEDS: carvediloL 3.125 MG TAB PO SCH ×2 (08:25→17:32)
[2020-04-09] MEDS: NICOTINE 21MG/24HR PATCH TRANSDERM SCH (08:25)
[2020-04-09] MEDS: HYDROPHILIC CREAM 180 GM TUBE TOPICAL SCH (08:32)
[2020-04-09] MEDS: IPRATROPIUM-ALBUTEROL 3 ML NEB INHALATION SCH ×4 (09:10→18:53)
--- NOTE | 2020-04-09 16:56 | PN ---
PROGRESS NOTE DATE OF SERVICE: 04/09/2020 REASON FOR FOLLOWUP: Leukocytosis and concern for cholecystitis. INTERVAL HISTORY: The patient is currently afebrile. The patient is breathing comfortably. Denies having any chest pain or cough. No abdominal pain. No vomiting or diarrhea. PHYSICAL EXAMINATION: Blood pressure 110/58 with a pulse of 66, temperature 97.3. He is 93% on room air. General description is a middle-aged female lying in bed in no distress. RESPIRATORY SYSTEM: Unlabored breathing. Clear to auscultation anteriorly. HEART: S1, S2. Regular rate and rhythm. ABDOMEN: Soft. No tenderness. LABS: No new labs have been obtained today. DIAGNOSTIC IMPRESSION AND PLAN: Patient with elevated white count on admission and a fever with concern for possible cholecystitis; has been treated medically. Currently on Rocephin. Finish a short course of oral Ceftin on discharge. MMODL / IJN: [id number] /
--- NOTE | 2020-04-09 19:44 | PN ---
PROGRESS NOTE Patient is seen for followup for acute kidney injury, currently hemodialysis-dependent. She is maintained on a Sunday, , Sunday schedule in the hospital. Patient was dialyzed yesterday. We had about 2.5 L of fluid removed. Currently she is awaiting placement to a rehab facility. Patient continues to have no significant urine output. PHYSICAL EXAMINATION: On examination today, blood pressure was 96/59, heart rate 62 per minute. She is afebrile. EXAMINATION OF THE HEART: S1 and S2. EXAMINATION OF LUNGS: Bilateral breath sounds are heard. Decreased breath sounds at bases. ABDOMEN: Soft, non-tender, obese. Examination of lower extremities shows edema 1+ bilaterally. MACHINIST WOOD exam is grossly intact. LABS: Labs from yesterday show sodium 127, potassium 4.0, hemoglobin 9.7 g/dL. ASSESSMENT: 1. Acute kidney injury, acute tubular necrosis, currently oliguric, maintained on hemodialysis on a Sunday, , Sunday schedule. We will arrange for dialysis again tomorrow. Patient will likely be on a Sunday, Sunday, Sunday schedule once she is discharged to rehab. Therefore we will plan to run her on Sunday. 2. Volume overload, currently improved. 3. Acute hypoxic hypercapnic respiratory failure, now resolved. 4. Sepsis; source likely pneumonia, status post antibiotics. 5. Elevated liver enzymes from hypotension, hypoperfusion, now improved. 6. Metabolic acidosis on initial admission, now resolved. PLAN: Hemodialysis in a.m. and then we will maintain her on a Sunday, Sunday, Sunday schedule. MMODL / IJN: [id number] /
--- NOTE | 2020-04-09 22:31 | P.PN ---
Progress Note - Text Progress Note Date: 04/09/20 Chief Complaint: Difficulty breathing Hospital course: Patient is 64-year-old female, was family doctor is Dr. pam Baker. Chronic stable medical conditions include chronic pain currently on a morphine pump , hypertension, CHF, and prior stroke who presented to the emergency department . Per the ER report patient is having difficulty breathing. Daughter called and found the same. Patient had a pain pump replaced 3 days ago. She follows with Dr. Hutton for pain pump. 3 days also she states she started having a fever. She has long-standing smoker. Baseline cough. No increased shortness of breath. Did receive some Narcan in the ER as she was a bit lethargic. When she got to the floor she again became lethargic blood gases sitting up pH of 6.88. It seemed to be a mixed respiratory and metabolic acidosis. Patient was therefore moved to the ICU with the orders for BiPAP. When I came to the ICU patient was using a BiPAP and was able to answer questions. She had a temperature of 100 the ER. On the floor she dropped respiratory rate also. She is put on a Narcan drip. Patient admitted with-metabolic encephalopathy likely from pain medications, acute hypoxic and hypercapnic respiratory failure from medications, acute kidney injury, acute ischemic hepatitis, septic shock, mixed metabolic and respiratory acidosis. Admitted ICU. Patient is put on a BiPAP. IV fluids. Levo fed. Bicarbonate. I spoke to Dr. Agee from neurology last night. Patient had his pain pump relocated from the spine to the anterior abdominal wound. It is intrathecal. Dose of morphine was not changed. Patient also was placed on Narcan drip. To which she responded well. Started on hemodialysis March 30. Admitted with-acute metabolic encephalopathy felt to be multifactorial, severe ischemic hepatitis from hypotension, acute kidney injury, likely ATN started on hemodialysis, septic shock, acute hypoxic and hypercapnic respiratory failure, metabolic and respiratory acidosis, COPD exacerbation. Empirically put on antibiotics source of infection unclear. Morphine dose in the pain pump decreased by Dr. Vee.patient felt to have cholecystitis. because of being clinically unstable decided not to proceed with any surgery. Patient responded to antibiotics. Today-comfortable. Laying in bed. No new issues. Review of systems: Was done for constitutional, cardiovascular, GI, pulmonary. relevant finding as above Physical examination: VITAL SIGNS: 97.5, 62, 20, 96/59, 96% on 2 L GENERAL: laying in bed, tired EYES: Pupils equal. Conjunctiva normal. HEENT: External appearance of nose and ears normal, oral cavity grossly normal. NECK: JVD unable to assess; masses not palpable. HEART: First and second heart sounds are normal; no edema. LUNGS: Respiratory rate increased, diminished breath sounds ABDOMEN: Soft, nontender, liver spleen not palpable, no masses palpable. Right abdominal incision site healing well with the underlying pain pump PSYCH: Answering questions INVESTIGATIONS, reviewed in the clinical context: white count 9.2 hemoglobin 9.7 platelets 58 potassium 4 Admission testing White count 21.8 hemoglobin 13.6 increased neutrophils potassium 6.4 bun 29 creatinine 4.12 Lactic acid 3.2 troponin I 0.911 AST 1741, ALT 1788 Hepatitis B surface antigen, core IgM antibody, hepatitis C IgG antibody all nonreactive ABG-pH 6.98, pCO2 98, bicarb 23 acetaminophen level less than 10 UA-negative for nitrate and leukoesterase EKG tracing personally reviewed by me-normal sinus rhythm some T-wave changes Computed tomography scan of the abdomen and pelvis-nonspecific Computed tomography scan of the brain-unremarkable Chest x-ray film personally reviewed by me-no obvious infiltrate, some elevations right diaphragm Abdominal ultrasound-taken gallbladder wall suggestive pericholecystic fluid, CBD 7 mm C. difficile-negative COVID 19 PCR not detected Hepatitis A IgM antibody nonreactive -Blood culture negative Previous testing: renal function is normal in December 2018 Assessment: -Acute metabolic encephalopathy. In the setting of acute renal failure patients on Neurontin [place] Seroquel Xanax Requip and viibryd. Received Narcan -improved -Chronic pain syndrome with a morphine pain pump that for relocated from the spine to the anterior abdominal wall 3 days prior to admission being followed by Dr. bedolla,-morphine dose decreased -Obesity BMI 34.5 -Severe ischemic hepatitis from hypotension-improving -Acute kidney injury likely ATN and worsening-started on hemodialysis March 30 -Septic shock and blood pressure dropping down to the 70s systolic. Status post pressor support corrected -Chronic L1 compression fracture -Acute hypoxic and hypercapnic respiratory failure responding to now on nasal cannula -Mixed metabolic and respiratory acidosis -Chronic nicotine dependence, patient is a cigarette smoker -Acute COPD exacerbation in a current smoker -Low-grade fever and infection site questionable cholecystitis-on antibiotics. patient managed with antibiotics. Surgery postponed. To be done when patient is most stable. -Essential hypertension-better controlled Plan: Stable. Spoke to the outreach and education social worker. Daughter is looking for specific places for discharge. Looking into rehab place. Continue current medications.
[2020-04-10] MEDS: GABAPENTIN 300 MG CAP PO SCH ×2 (01:49→21:07)
[2020-04-10] MEDS: carvediloL 3.125 MG TAB PO SCH (08:51)
[2020-04-10] MEDS: NICOTINE 21MG/24HR PATCH TRANSDERM SCH (08:53)
[2020-04-10] MEDS: PANTOPRAZOLE 40 MG TABLET PO SCH (08:53)
[2020-04-10] MEDS: CITALOPRAM HYDROBROMIDE 10 MG TAB PO SCH (08:53)
[2020-04-10] MEDS: HYDROPHILIC CREAM 180 GM TUBE TOPICAL SCH (08:54)
[2020-04-10] MEDS: IPRATROPIUM-ALBUTEROL 3 ML NEB INHALATION SCH ×4 (09:14→19:43)
[2020-04-10 11:20] LABS: Basophils % (A) 0 %; Eosinophils # (A) 0.2 k/uL (0-0.7); Eosinophils % (A) 1 %; Hypochromasia Marked; Lymphocytes # (A) 0.5 k/uL (1.0-4.8); Lymphocytes % (A) 4 %; MCH 30.2 pg (25.0-35.0); MCHC 29.5 g/dL (31.0-37.0); Macrocytosis Slight; Mean Platelet Volume 9.7; Monocytes # (A) 0.4 k/uL (0-1.0); Monocytes % (A) 3 %; Neutrophils # (A) 10.6 k/uL (1.3-7.7); Neutrophils % (A) 90 %; Platelet Count 149 k/uL (150-450); RBC 2.35 m/uL (3.80-5.40); RDW 15.2 % (11.5-15.5); WBC 11.8 k/uL (3.8-10.6)
[2020-04-10 11:22] LABS: HGB 7.1 gm/dL (11.4-16.0); MCV 102.3 fL (80.0-100.0)
[2020-04-10 11:26] LABS: ALT 119 U/L (4-34); AST 28 U/L (14-36); African American GFR (CKD) 13 (>60 ml/min/1.73 sqM); Albumin 2.6 g/dL (3.5-5.0); Alkaline Phosphatase 130 U/L (38-126); Anion Gap 6 mmol/L; Blood Urea Nitrogen 49 mg/dL (7-17); Calcium 8.2 mg/dL (8.4-10.2); Carbon Dioxide 27 mmol/L (22-30); Chloride 98 mmol/L (98-107); Globulin 2.7 g/dL; Glucose 138 mg/dL (74-99); Non-African American GFR(CKD) 11 (>60 ml/min/1.73 sqM); Potassium 4.7 mmol/L (3.5-5.1); Sodium 131 mmol/L (137-145); Total Bilirubin 0.5 mg/dL (0.2-1.3); Total Protein 5.3 g/dL (6.3-8.2)
--- NOTE | 2020-04-10 13:16 | P.PN ---
Subjective Progress Note Date: 04/10/20 Principal diagnosis: This is a 64-year-old female who is followed up with acute kidney injury, dialysis dependent. She came in with fever and leukocytosis. No clear-cut cause was found. She had hypercapnic respiratory failure possibly narcotic induced. His found to be in acute kidney injury her echocardiogram was unremarkable Possibly hypotension-induced acute kidney injury. She was started on dialysis. Currently she is remains profoundly weak and somewhat difficult to communicate with. Denies any chest pain but states she has poor appetite and does not feel good. Afebrile No urine output Objective - Vital Signs Vital signs: Vital Signs Temp 97.9 F 04/10/20 07:00 Pulse 68 04/10/20 12:17 Resp 22 04/10/20 07:00 BP 93/56 04/10/20 07:00 Pulse Ox 97 04/10/20 07:00 Intake & Output 04/09/20 04/10/20 04/10/20 18:59 06:59 18:59 Intake Total 300 760 Balance 300 760 Weight 110.5 kg Intake: IV 160 0.9 Normal Saline at 10mL 160 /hr as KVO Oral 300 600 Other: Voiding Method Bedpan # Voids 3 0 ABP, PAP, CO, CI - Last Documented Arterial Blood Pressure 137/60 Exam general awake alert tired and difficult to communicate with HEENT exam no JVP neck is supple no facial asymmetry Lungs are clear to auscultation but poor air entry Heart sounds unremarkable for any murmur rub gallop Abdomen soft nontender Extremity exam was trace edema Neurologically awake alert and oriented - Labs CBC & Chem 7: 04/10/20 10:46 04/10/20 10:46 Labs: Abnormal Lab Results - Last 24 Hours (Table) 04/10/20 04/10/20 Range/Units 10:46 10:46 WBC 11.8 H (3.8-10.6) k/uL RBC 2.35 L (3.80-5.40) m/uL Hgb 7.1 L D (11.4-16.0) gm/dL Hct 24.0 L (34.0-46.0) % MCV 102.3 H D (80.0-100.0) fL MCHC 29.5 L (31.0-37.0) g/dL Plt Count 149 L D (150-450) k/uL Neutrophils # 10.6 H (1.3-7.7) k/uL Lymphocytes # 0.5 L (1.0-4.8) k/uL Sodium 131 L (137-145) mmol/L BUN 49 H (7-17) mg/dL Creatinine 4.02 H (0.52-1.04) mg/dL Glucose 138 H (74-99) mg/dL Calcium 8.2 L (8.4-10.2) mg/dL ALT 119 H (4-34) U/L Alkaline Phosphatase 130 H (38-126) U/L Total Protein 5.3 L (6.3-8.2) g/dL Albumin 2.6 L (3.5-5.0) g/dL Assessment and Plan Assessment: Impression 1. Acute kidney injury, ATN cause not very clear low blood pressure and narcotic induced hypo-ventilation and hypercapnic respiratory failure improved. Currently on dialysis 2. Hypotension with normal echocardiogram 3. Mild hyponatremia sodium is 131 secondary to acute kidney injury 4. History of narcotic and is pain medication use Recommendation 1. Maintain current medications she is on carvedilol 3.125 twice a day. Blood pressure is low, will recommend that there was obvious. She has no history of coronary artery disease artery disease. 2 maintain dialysis schedule Sunday
--- NOTE | 2020-04-10 13:53 | PN ---
PROGRESS NOTE DATE OF SERVICE: 04/10/2020 REASON FOR FOLLOWUP: leukocytosis and cholecystitis. INTERVAL HISTORY: The patient is currently afebrile, has been complaining of pain to the right side of the chest and overall not feeling well. No nausea, no vomiting. Denies any abdominal pain or any diarrhea. PHYSICAL EXAMINATION: Blood pressure 93/56, pulse of 72, temperature 97.9. She is 97% on 2 L. General description is a middle-aged female lying in bed in no distress. Respiratory system: Unlabored breathing, clear to auscultation anteriorly. Heart S1, S2. Regular rate. Abdomen soft, no tenderness. No guarding, no rigidity. LABS: Hemoglobin 7.1, white count 11.8, BUN of 49, creatinine 4.02. Blood culture negative. DIAGNOSTIC IMPRESSION AND PLAN: Patient with elevated white count, multifactorial with concern for possible cholecystitis, being treated medically. Currently on Rocephin. White count mildly elevated. We will monitor closely and continue supportive care. MMODL / IJN: [id number] /
--- NOTE | 2020-04-10 15:26 | US ---
EXAMINATION TYPE: US venous doppler duplex UE RT DATE OF EXAM: 04/10/2020 COMPARISON: CTA 03/11/18 CLINICAL HISTORY: edema/DVT. Rt arm pain and swelling x 3 days; patient gets dialysis through port in Rt chest SIDE PERFORMED: Right Right Arm: Positive for DVT in IJV at area of line, and Distal brachial V. Positive for SVT in Cephal ic V. prox-distal Right radial and ulner veins not seen due to edema IMPRESSION: There is deep vein thrombus demonstrated in the jugular vein and brachial vein. There is superficial thrombus in the cephalic vein.
[2020-04-10 17:09] LABS: % Iron Saturation 15.27 (12.00-45.00)
[2020-04-10] MEDS ORDERED: HEPARIN SODIUM,PORCINE 5,000 UNIT/ML 1 ML VIAL IV PRN (17:12)
[2020-04-10] MEDS: HEPARIN SOD,PORK IN 0.45% NACL 25,000 UNIT in 0.45% NACL 1 250ML.BAG IV SCH (18:01)
[2020-04-10 18:15] LABS: Basophils % (A) 0 %; Eosinophils # (A) 0.1 k/uL (0-0.7); Eosinophils % (A) 1 %; HCT 24.2 % (34.0-46.0); Hypochromasia Marked; Lymphocytes # (A) 0.5 k/uL (1.0-4.8); Lymphocytes % (A) 4 %; MCH 29.3 pg (25.0-35.0); MCHC 29.1 g/dL (31.0-37.0); MCV 100.9 fL (80.0-100.0); Macrocytosis Slight; Mean Platelet Volume 9.5; Monocytes # (A) 0.4 k/uL (0-1.0); Monocytes % (A) 3 %; Neutrophils # (A) 11.6 k/uL (1.3-7.7); Neutrophils % (A) 91 %; Platelet Count 162 k/uL (150-450); RDW 15.1 % (11.5-15.5); WBC 12.7 k/uL (3.8-10.6)
[2020-04-10 18:20] LABS: Partial Thromboplastin Time 22.9 sec (22.0-30.0); Prothrombin Time 10.2 sec (9.0-12.0)
--- NOTE | 2020-04-10 22:04 | P.PN ---
Progress Note - Text Progress Note Date: 04/10/20 Chief Complaint: Difficulty breathing Hospital course: Patient is 64-year-old female, was family doctor is Dr. pam Baker. Chronic stable medical conditions include chronic pain currently on a morphine pump , hypertension, CHF, and prior stroke who presented to the emergency department . Per the ER report patient is having difficulty breathing. Daughter called and found the same. Patient had a pain pump replaced 3 days ago. She follows with Dr. Hutton for pain pump. 3 days also she states she started having a fever. She has long-standing smoker. Baseline cough. No increased shortness of breath. Did receive some Narcan in the ER as she was a bit lethargic. When she got to the floor she again became lethargic blood gases sitting up pH of 6.88. It seemed to be a mixed respiratory and metabolic acidosis. Patient was therefore moved to the ICU with the orders for BiPAP. When I came to the ICU patient was using a BiPAP and was able to answer questions. She had a temperature of 100 the ER. On the floor she dropped respiratory rate also. She is put on a Narcan drip. Patient admitted with-metabolic encephalopathy likely from pain medications, acute hypoxic and hypercapnic respiratory failure from medications, acute kidney injury, acute ischemic hepatitis, septic shock, mixed metabolic and respiratory acidosis. Admitted ICU. Patient is put on a BiPAP. IV fluids. Levo fed. Bicarbonate. I spoke to Dr. Agee from neurology last night. Patient had his pain pump relocated from the spine to the anterior abdominal wound. It is intrathecal. Dose of morphine was not changed. Patient also was placed on Narcan drip. To which she responded well. Started on hemodialysis March 30. Admitted with-acute metabolic encephalopathy felt to be multifactorial, severe ischemic hepatitis from hypotension, acute kidney injury, likely ATN started on hemodialysis, septic shock, acute hypoxic and hypercapnic respiratory failure, metabolic and respiratory acidosis, COPD exacerbation. Empirically put on antibiotics source of infection unclear. Morphine dose in the pain pump decreased by Dr. Vee.patient felt to have cholecystitis. because of being clinically unstable decided not to proceed with any surgery. Patient responded to antibiotics. Today-right arm is a bit swollen. Ultrasound ordered. Found to have DVT. Discussed with Dr. Wilson from vascular. Start IV heparin. Patient did talk to me. Patient reported to be sleepy otherwise. Review of systems: Was done for constitutional, cardiovascular, GI, pulmonary. relevant finding as above Active Medications Albuterol/Ipratropium (Ipratropium-Albuterol 3 Ml Neb) 3 ml INHALATION RT-Q2H PRN PRN Reason: Shortness Of Breath Or Wheezing Albuterol/Ipratropium (Ipratropium-Albuterol 3 Ml Neb) 3 ml INHALATION RT-QID [facility] Last Admin: 04/10/20 19:43 Dose: 3 ml Documented by: Docusate Sodium (Docusate 100 Mg Cap) 100 mg PO BID PRN PRN Reason: Constipation Gabapentin (Gabapentin 100 Mg Cap) 100 mg PO HS [facility] Heparin Sodium (Porcine) (Heparin Sodium,Porcine 5,000 Unit/Ml 1 Ml Vial) 0 unit IV PER PROTOCOL PRN; Protocol PRN Reason: Low PTT Ceftriaxone Sodium 1 gm/ (Sodium Chloride) 50 mls @ 100 mls/hr IVPB Q24HR [facility] Stop: 04/12/20 10:00 Last Admin: 04/10/20 08:53 Dose: 100 mls/hr Documented by: Heparin Sodium/Sodium Chloride (25,000 unit/ Sodium Chloride) 250 mls @ 19.89 mls/hr IV .[id number] [facility]; Protocol Last Admin: 04/10/20 18:01 Dose: 18 units/kg/hr, 19.89 mls/hr Documented by: Multi-Ingred Cream/Lotion/Oil/Oint (Hydrophilic Cream 180 Gm Tube) 1 applic TOPICAL DAILY [facility] Last Admin: 04/10/20 08:54 Dose: 1 applic Documented by: Naloxone HCl (Naloxone 0.4 Mg/Ml 1 Ml Vial) 0.2 mg IVP Q2M PRN PRN Reason: Opioid Reversal Last Admin: 03/28/20 17:23 Dose: 0.2 mg Documented by: Nicotine (Nicotine 21mg/24hr Patch) 1 patch TRANSDERM DAILY [facility] Last Admin: 04/10/20 08:53 Dose: 1 patch Documented by: Ondansetron HCl (Ondansetron 4 Mg/2 Ml Vial) 4 mg IVP Q6HR PRN PRN Reason: Nausea And Vomiting Last Admin: 04/06/20 16:07 Dose: 4 mg Documented by: Pantoprazole Sodium (Pantoprazole 40 Mg Tablet) 40 mg PO DAILY [facility] Last Admin: 04/10/20 08:53 Dose: 40 mg Documented by: Ropinirole HCl (Ropinirole Hcl 1 Mg Tab) 1 mg PO HS [facility] Last Admin: 04/10/20 21:07 Dose: 1 mg Documented by: Physical examination: VITAL SIGNS: 98, 79, 22, 98/60, 99% on 3 L GENERAL: laying in bed, tired EYES: Pupils equal. Conjunctiva normal. HEENT: External appearance of nose and ears normal, oral cavity grossly normal. NECK: JVD unable to assess; masses not palpable. HEART: First and second heart sounds are normal; no edema. LUNGS: Respiratory rate increased, diminished breath sounds EXTREMITIES: Right upper extremity swollen ABDOMEN: Soft, nontender, liver spleen not palpable, no masses palpable. Right abdominal incision site healing well with the underlying pain pump PSYCH: Answering questions INVESTIGATIONS, reviewed in the clinical context: White count 12.7 hemoglobin 7 potassium 4.7 creatinine 4.02 Doppler-DVT IN THE JUGULAR VEIN AND THE BRACHIAL VEIN. SUPERFICIAL THROMBUS IN THE CEPHALIC VEIN. Admission testing White count 21.8 hemoglobin 13.6 increased neutrophils potassium 6.4 bun 29 creatinine 4.12 Lactic acid 3.2 troponin I 0.911 AST 1741, ALT 1788 Hepatitis B surface antigen, core IgM antibody, hepatitis C IgG antibody all nonreactive ABG-pH 6.98, pCO2 98, bicarb 23 acetaminophen level less than 10 UA-negative for nitrate and leukoesterase EKG tracing personally reviewed by me-normal sinus rhythm some T-wave changes Computed tomography scan of the abdomen and pelvis-nonspecific Computed tomography scan of the brain-unremarkable Chest x-ray film personally reviewed by me-no obvious infiltrate, some elevations right diaphragm Abdominal ultrasound-taken gallbladder wall suggestive pericholecystic fluid, CBD 7 mm C. difficile-negative COVID 19 PCR not detected Hepatitis A IgM antibody nonreactive -Blood culture negative Previous testing: renal function is normal in December 2018 Assessment: -Acute metabolic encephalopathy. In the setting of acute renal failure patients on Neurontin [place] Seroquel Xanax Requip and viibryd. Received Narcan -improved -Chronic pain syndrome with a morphine pain pump that for relocated from the spine to the anterior abdominal wall 3 days prior to admission being followed by Dr. bedolla,-morphine dose decreased -Obesity BMI 34.5 -Severe ischemic hepatitis from hypotension-improving -Acute kidney injury likely ATN and worsening-started on hemodialysis March 30 -Septic shock and blood pressure dropping down to the 70s systolic. Status post pressor support corrected -Chronic L1 compression fracture -Acute hypoxic and hypercapnic respiratory failure responding to now on nasal cannula -Mixed metabolic and respiratory acidosis -Chronic nicotine dependence, patient is a cigarette smoker -Acute COPD exacerbation in a current smoker -Low-grade fever and infection site questionable cholecystitis-on antibiotics. patient managed with antibiotics. Surgery postponed. To be done when patient is most stable. -Essential hypertension- -Macrocytic anemia. Symptomatic. Low blood pressure.-Transfuse blood -Acute DVT in the right jugular vein and brachial vein. Superficial thrombus in the cephalic vein. Discussed with Dr. Lao from vascular surgery. Keep the dialysis catheter. Started IV heparin. Plan: Patient to be started on IV heparin. Patient being rather sleepy. Cutback dose of Neurontin patient the setting of renal failure. Given a unit of blood. As blood pressure low.
--- NOTE | 2020-04-10 22:26 | CONS ---
CONSULTATION The patient is known to me from the intensive care unit. She came with acute kidney injury. Patient had a dialysis catheter through the femoral approach. Then patient went for permanent dialysis catheter placement dated 04/04/2020 on the right jugular approach. I was called in. Patient has noticed some swelling in the right arm. The patient is hypertensive and not very responsive. The patient currently is having dialysis through the right IJ catheter without any problem. PHYSICAL EXAMINATION: On examination, brachial radial pulses are present. Patient has some mild swelling of the right arm. No vascular compromise. The patient had an ultrasound which showed there was thrombus demonstrating the jugular vein and brachial vein. There is superficial thrombus in the cephalic vein. Most likely the arm thrombosis source could be due to the IV when patient was in the intensive care unit and jugular vein, a clot was seen due to the catheter. At this point, there is no vascular compromise and the patient is tolerating dialysis through the catheter. I will discuss with the Internal Medicine patient should be put on anticoagulation and we will follow with you. Thank you very much for this consultation. RAMÍREZ / NIMISHAN: [id number] /
[2020-04-11] MEDS: HEPARIN SOD,PORK IN 0.45% NACL 25,000 UNIT in 0.45% NACL 1 250ML.BAG IV SCH ×2 (06:53→09:54)
[2020-04-11] MEDS: NICOTINE 21MG/24HR PATCH TRANSDERM SCH (07:53)
[2020-04-11] MEDS: PANTOPRAZOLE 40 MG TABLET PO SCH (07:53)
[2020-04-11] MEDS: HYDROPHILIC CREAM 180 GM TUBE TOPICAL SCH (07:54)
--- NOTE | 2020-04-11 08:24 | P.PN ---
Subjective Progress Note Date: 04/11/20 Principal diagnosis: This is a 64-year-old female who is followed up with acute kidney injury, dialysis dependent. Possibly hypotension-induced acute kidney injury. She was started on dialysis. She came in with fever and leukocytosis. No clear-cut cause was found. She had hypercapnic respiratory failure possibly narcotic induced. She found to be in acute kidney injury. Her echocardiogram was unremarkable Currently she remains stable with blood pressure in the 110s, afebrile but is remains profoundly weak and mental status is improved she is able to recognize for the governor and where she is in the date.. Denies any chest pain but states she has poor appetite and does not feel good. Supposedly her urine output is increasing as per the patient as well as the jacob se but not documented. She has significant edema and has a DVT in the right on is on heparin Objective - Vital Signs Vital signs: Vital Signs Temp 97.4 F L 04/11/20 07:00 Pulse 79 04/11/20 07:00 Resp 20 04/11/20 07:00 BP 122/75 04/11/20 07:00 Pulse Ox 91 L 04/11/20 07:00 Intake & Output 04/10/20 04/11/20 04/11/20 18:59 06:59 18:59 Intake Total 160 462.159 Output Total 300 Balance -140 462.159 Weight 110 kg Intake: IV 160 0.9 Normal Saline at 10mL 160 /hr as KVO Intake, IV Titration 152.159 Amount Heparin Sod,Pork in 0.45% 152.159 NaCl 25,000 unit In 0.45 % NaCl 1 250ml.bag @ 18 UNITS/KG/HR 19.89 mls/hr IV .[id number] [facility] Rx#: [id number] Blood Product 310 Rc Pheresis As3 Unit 310 [id number] Output: Urine 300 Other: Voiding Method Bedpan # Voids 0 ABP, PAP, CO, CI - Last Documented Arterial Blood Pressure 137/60 Examination is awake alert oriented 3 HEENT exam no JVP neck is supple no facial asymmetry Lungs are significant for occasional bibasal crackles, good air entry bilaterally Heart sounds are unremarkable for any murmur rub gallop Abdomen soft nontender Extremity exam was 2+ edema of all 4 extremities. The right arm is about the same as the left she has a permacath on the right Neurologically awake alert oriented 3 able to move all her extremities although weak. There is tenderness but no asterixis - Labs CBC & Chem 7: 04/10/20 17:45 04/10/20 10:46 Labs: Abnormal Lab Results - Last 24 Hours (Table) 04/10/20 04/10/20 04/10/20 Range/Units 10:46 10:46 10:46 WBC 11.8 H (3.8-10.6) k/uL RBC 2.35 L (3.80-5.40) m/uL Hgb 7.1 L D (11.4-16.0) gm/dL Hct 24.0 L (34.0-46.0) % MCV 102.3 H D (80.0-100.0) fL MCHC 29.5 L (31.0-37.0) g/dL Plt Count 149 L D (150-450) k/uL Neutrophils # 10.6 H (1.3-7.7) k/uL Lymphocytes # 0.5 L (1.0-4.8) k/uL APTT (22.0-30.0) sec Sodium 131 L (137-145) mmol/L BUN 49 H (7-17) mg/dL Creatinine 4.02 H (0.52-1.04) mg/dL Glucose 138 H (74-99) mg/dL Calcium 8.2 L (8.4-10.2) mg/dL Iron 42 L (50-170) ug/dL ALT 119 H (4-34) U/L Alkaline Phosphatase 130 H (38-126) U/L Total Protein 5.3 L (6.3-8.2) g/dL Albumin 2.6 L (3.5-5.0) g/dL Crossmatch 04/10/20 04/10/20 04/11/20 Range/Units 17:45 22:25 00:32 WBC 12.7 H (3.8-10.6) k/uL RBC 2.40 L (3.80-5.40) m/uL Hgb 7.0 L (11.4-16.0) gm/dL Hct 24.2 L (34.0-46.0) % MCV 100.9 H (80.0-100.0) fL MCHC 29.1 L (31.0-37.0) g/dL Plt Count (150-450) k/uL Neutrophils # 11.6 H (1.3-7.7) k/uL Lymphocytes # 0.5 L (1.0-4.8) k/uL APTT 75.0 H (22.0-30.0) sec Sodium (137-145) mmol/L BUN (7-17) mg/dL Creatinine (0.52-1.04) mg/dL Glucose (74-99) mg/dL Calcium (8.4-10.2) mg/dL Iron (50-170) ug/dL ALT (4-34) U/L Alkaline Phosphatase (38-126) U/L Total Protein (6.3-8.2) g/dL Albumin (3.5-5.0) g/dL Crossmatch See Detail Assessment and Plan Assessment: Impression 1. Acute kidney injury, ATN cause not very clear, possibly low blood pressure and narcotic induced hypo-ventilation and hypercapnic respiratory failure improved. Currently on dialysis. She was dialyzed yesterday Sunday 2. Hypotension with normal echocardiogram. Coreg was discontinued yesterday 04/10/2020 3. Mild hyponatremia sodium is 131 secondary to acute kidney injury. Last from this morning are pending 4. History of narcotic use. 5. DVT right arm on heparin 6. Status post transfusion for anemia, hemoglobin had gone down from 13.8 on 03/28/2022 7.1 as of yesterday morning. Posttransfusion hemoglobin spending 7. Iron deficiency status post transfusion Recommendation 1. watch for bleeding because of the significant drop in hemoglobin in the hospital even before the heparin was started yesterday 2. Watch for renal recovery as her urine output is improving her blood pressure is improving off of coronary 3. Will dialyze her tomorrow unless her urine output significantly increases and have labs improve.
[2020-04-11 08:28] LABS: Basophils % (A) 0 %; Eosinophils # (A) 0.2 k/uL (0-0.7); Eosinophils % (A) 1 %; HCT 27.3 % (34.0-46.0); HGB 7.8 gm/dL (11.4-16.0); Hypochromasia Marked; Lymphocytes # (A) 0.7 k/uL (1.0-4.8); Lymphocytes % (A) 5 %; MCH 28.5 pg (25.0-35.0); MCHC 28.5 g/dL (31.0-37.0); Macrocytosis Slight; Mean Platelet Volume 9.6; Monocytes # (A) 0.4 k/uL (0-1.0); Monocytes % (A) 3 %; Neutrophils # (A) 12.5 k/uL (1.3-7.7); Neutrophils % (A) 90 %; Platelet Count 147 k/uL (150-450); Poikilocytosis Slight; RBC 2.73 m/uL (3.80-5.40); RDW 15.5 % (11.5-15.5); WBC 13.9 k/uL (3.8-10.6)
[2020-04-11 08:29] LABS: ALT 112 U/L (4-34); AST 33 U/L (14-36); African American GFR (CKD) 19 (>60 ml/min/1.73 sqM); Albumin 2.8 g/dL (3.5-5.0); Albumin/Globulin Ratio 0.9; Alkaline Phosphatase 138 U/L (38-126); Anion Gap 5 mmol/L; Blood Urea Nitrogen 31 mg/dL (7-17); Calcium 8.3 mg/dL (8.4-10.2); Carbon Dioxide 29 mmol/L (22-30); Chloride 106 mmol/L (98-107); Globulin 3.1 g/dL; Glucose 133 mg/dL (74-99); Non-African American GFR(CKD) 17 (>60 ml/min/1.73 sqM); Potassium 4.4 mmol/L (3.5-5.1); Sodium 140 mmol/L (137-145); Total Bilirubin 0.8 mg/dL (0.2-1.3); Total Protein 5.9 g/dL (6.3-8.2)
[2020-04-11] MEDS: IPRATROPIUM-ALBUTEROL 3 ML NEB INHALATION SCH ×4 (08:30→19:26)
[2020-04-11] MEDS ORDERED: FUROSEMIDE 10 MG/ML 10 ML VIAL IV ONE (09:00)
[2020-04-11] MEDS ORDERED: FUROSEMIDE 10 MG/ML 2 ML VIAL IV SCH (09:00)
[2020-04-11] MEDS: APIXABAN 2.5 MG TABLET PO SCH ×2 (11:56→20:20)
[2020-04-11 15:41] LABS: Appearance,Urine Turbid (Clear); Bacteria,Urine Rare /hpf; Bilirubin,Urine Negative (Negative); Blood,Urine Moderate (Negative); Budding Yeast,Urine Few /hpf; Color,Urine Yellow; Glucose,Urine (UA) Negative (Negative); Ketones,Urine Negative (Negative); Leukocyte Esterase,Urine Large (Negative); Mucus,Urine Rare /hpf; Nitrite,Urine Negative (Negative); Protein,Urine 2+ (Negative); RBC,Urine 8 /hpf (0-5); Squamous Epithelial Cell,Urine <1 /hpf (0-4); Urobilinogen,Urine <2.0 mg/dL (<2.0); WBC,Urine 104 /hpf (0-5)
[2020-04-11 15:55] LABS: Specific Gravity,Urine 1.012 (1.001-1.035)
[2020-04-11] MEDS ORDERED: FLUCONAZOLE 100 MG TAB PO ONE (16:00)
[2020-04-11] MEDS: CEFEPIME 2 GM in SODIUM CHLORIDE 0.9% 100 ML IVPB SCH (16:22)
--- NOTE | 2020-04-11 16:31 | P.PN ---
Progress Note - Text Progress Note Date: 04/11/20 Chief Complaint: Difficulty breathing Hospital course: Patient is 64-year-old female, was family doctor is Dr. pam Baker. Chronic stable medical conditions include chronic pain currently on a morphine pump , hypertension, CHF, and prior stroke who presented to the emergency department . Per the ER report patient is having difficulty breathing. Daughter called and found the same. Patient had a pain pump replaced 3 days ago. She follows with Dr. Hutton for pain pump. 3 days also she states she started having a fever. She has long-standing smoker. Baseline cough. No increased shortness of breath. Did receive some Narcan in the ER as she was a bit lethargic. When she got to the floor she again became lethargic blood gases sitting up pH of 6.88. It seemed to be a mixed respiratory and metabolic acidosis. Patient was therefore moved to the ICU with the orders for BiPAP. When I came to the ICU patient was using a BiPAP and was able to answer questions. She had a temperature of 100 the ER. On the floor she dropped respiratory rate also. She is put on a Narcan drip. Patient admitted with-metabolic encephalopathy likely from pain medications, acute hypoxic and hypercapnic respiratory failure from medications, acute kidney injury, acute ischemic hepatitis, septic shock, mixed metabolic and respiratory acidosis. Admitted ICU. Patient is put on a BiPAP. IV fluids. Levo fed. Bicarbonate. I spoke to Dr. Agee from neurology last night. Patient had his pain pump relocated from the spine to the anterior abdominal wound. It is intrathecal. Dose of morphine was not changed. Patient also was placed on Narcan drip. To which she responded well. Started on hemodialysis March 30. Admitted with-acute metabolic encephalopathy felt to be multifactorial, severe ischemic hepatitis from hypotension, acute kidney injury, likely ATN started on hemodialysis, septic shock, acute hypoxic and hypercapnic respiratory failure, metabolic and respiratory acidosis, COPD exacerbation. Empirically put on antibiotics source of infection unclear. Morphine dose in the pain pump decreased by Dr. Vee.patient felt to have cholecystitis. because of being clinically unstable decided not to proceed with any surgery. Patient responded to antibiotics.Doppler ultrasound confirmed DVT in the right upper extremity. Started on IV heparin. Today-on IV heparin. Tired. Given a unit of blood as was hypotensive last night. Blood pressure better today. hemoglobin came up. Oral intake low.. Review of systems: Was done for constitutional, cardiovascular, GI, pulmonary. relevant finding as above Active Medications Albuterol/Ipratropium (Ipratropium-Albuterol 3 Ml Neb) 3 ml INHALATION RT-Q2H PRN PRN Reason: Shortness Of Breath Or Wheezing Albuterol/Ipratropium (Ipratropium-Albuterol 3 Ml Neb) 3 ml INHALATION RT-QID REPLACED BY [facility] Last Admin: 04/11/20 15:35 Dose: 3 ml Documented by: Apixaban (Apixaban 2.5 Mg Tablet) 2.5 mg PO BID REPLACED BY [facility] Last Admin: 04/11/20 11:56 Dose: 2.5 mg Documented by: Docusate Sodium (Docusate 100 Mg Cap) 100 mg PO BID PRN PRN Reason: Constipation Gabapentin (Gabapentin 100 Mg Cap) 100 mg PO [facility] Cefepime HCl 2 gm/ Sodium (Chloride) 100 mls @ 25 mls/hr IVPB Q24H REPLACED BY [facility] Last Admin: 04/11/20 16:22 Dose: 25 mls/hr Documented by: Multi-Ingred Cream/Lotion/Oil/Oint (Hydrophilic Cream 180 Gm Tube) 1 applic TOPICAL DAILY REPLACED BY [facility] Last Admin: 04/11/20 07:54 Dose: 1 applic Documented by: Naloxone HCl (Naloxone 0.4 Mg/Ml 1 Ml Vial) 0.2 mg IVP Q2M PRN PRN Reason: Opioid Reversal Last Admin: 03/28/20 17:23 Dose: 0.2 mg Documented by: Nicotine (Nicotine 21mg/24hr Patch) 1 patch TRANSDERM DAILY REPLACED BY [facility] Last Admin: 04/11/20 07:53 Dose: 1 patch Documented by: Ondansetron HCl (Ondansetron 4 Mg/2 Ml Vial) 4 mg IVP Q6HR PRN PRN Reason: Nausea And Vomiting Last Admin: 04/06/20 16:07 Dose: 4 mg Documented by: Pantoprazole Sodium (Pantoprazole 40 Mg Tablet) 40 mg PO DAILY REPLACED BY [facility] Last Admin: 04/11/20 07:53 Dose: 40 mg Documented by: Ropinirole HCl (Ropinirole Hcl 1 Mg Tab) 1 mg PO [facility] Last Admin: 04/10/20 21:07 Dose: 1 mg Documented by: Physical examination: VITAL SIGNS: 97.4, 79, 20, 108/69,90% on 2 L GENERAL: laying in bed, tired . Hemodialysis catheter in the right jugular vein EYES: Pupils equal. Conjunctiva normal. HEENT: External appearance of nose and ears normal, oral cavity grossly normal. NECK: JVD unable to assess; masses not palpable. HEART: First and second heart sounds are normal; no edema. LUNGS: Respiratory rate increased, diminished breath sounds EXTREMITIES: Right upper extremity swollen ABDOMEN: Soft, nontender, liver spleen not palpable, no masses palpable. Right abdominal incision site healing well with the underlying pain pump PSYCH: Answering questions INVESTIGATIONS, reviewed in the clinical context: White count 12.7 hemoglobin 7 potassium 4.7 creatinine 4.02 Doppler-DVT IN THE JUGULAR VEIN AND THE BRACHIAL VEIN. SUPERFICIAL THROMBUS IN THE CEPHALIC VEIN. Admission testing White count 21.8 hemoglobin 13.6 increased neutrophils potassium 6.4 bun 29 creatinine 4.12 Lactic acid 3.2 troponin I 0.911 AST 1741, ALT 1788 Hepatitis B surface antigen, core IgM antibody, hepatitis C IgG antibody all nonreactive ABG-pH 6.98, pCO2 98, bicarb 23 acetaminophen level less than 10 UA-negative for nitrate and leukoesterase EKG tracing personally reviewed by me-normal sinus rhythm some T-wave changes Computed tomography scan of the abdomen and pelvis-nonspecific Computed tomography scan of the brain-unremarkable Chest x-ray film personally reviewed by me-no obvious infiltrate, some elevatio ns right diaphragm Abdominal ultrasound-taken gallbladder wall suggestive pericholecystic fluid, CBD 7 mm C. difficile-negative COVID 19 PCR not detected Hepatitis A IgM antibody nonreactive -Blood culture negative Previous testing: renal function is normal in December 2018 Assessment: -Acute metabolic encephalopathy. In the setting of acute renal failure patients on Neurontin [place] Seroquel Xanax Requip and viibryd. Received Narcan -improved -Chronic pain syndrome with a morphine pain pump that for relocated from the spine to the anterior abdominal wall 3 days prior to admission being followed by Dr. bedolla,-morphine dose decreased -Obesity BMI 34.5 -Severe ischemic hepatitis from hypotension-improving -Acute kidney injury likely ATN and worsening-started on hemodialysis March 30 -Septic shock and blood pressure dropping down to the 70s systolic. Status post pressor support corrected -Chronic L1 compression fracture -Acute hypoxic and hypercapnic respiratory failure responding to now on nasal cannula -Mixed metabolic and respiratory acidosis -Chronic nicotine dependence, patient is a cigarette smoker -Acute COPD exacerbation in a current smoker -Low-grade fever and infection site questionable cholecystitis-on antibiotics. patient managed with antibiotics. Surgery postponed. To be done when patient is most stable. -Essential hypertension- -Macrocytic anemia. Symptomatic. Low blood pressure.-transfuse blood -Acute DVT in the right jugular vein and brachial vein. Superficial thrombus in the cephalic vein. Discussed with Dr. Lao from vascular surgery. Keep the dialysis catheter. Started IV heparin. Plan: patient received a unit of blood yesterday. Blood pressure better. We'll switch over IV heparin to eliquis. prognosis guarded.
[2020-04-11] MEDS: GABAPENTIN 100 MG CAP PO SCH (20:20)
--- NOTE | 2020-04-12 03:02 | PN ---
PROGRESS NOTE DATE OF SERVICE: 04/11/2020 REASON FOR FOLLOWUP: Leukocytosis and UTI. INTERVAL HISTORY: The patient was seen on rounds this afternoon and the patient has been afebrile. She is complaining of not feeling that good. No chest pain. No cough. No abdominal pain or diarrhea. PHYSICAL EXAMINATION: Her blood pressure is 108/64 with a pulse of 80, temperature is 97.4. She is 93% on 3 L nasal cannula. General description is a middle-aged female, lying in bed in no distress. RESPIRATORY SYSTEM: Unlabored breathing, clear to auscultation anteriorly. HEART: S1, S2. Regular rate and rhythm. ABDOMEN: Soft, no guarding or rigidity. LABS: The patient's white count up to 13,000. Repeat UA obtained, which did show large leukocyte esterase, more than 104 WBCs. DIAGNOSTIC IMPRESSION AND PLAN: Patient with elevated white count, multifactorial, with a possible component of urinary tract infection, significant positive UA. Antibiotic adjusted to cefepime with one dose of Diflucan and monitor clinical course closely. MMODL / IJN: [id number] /
[2020-04-12] MEDS: IPRATROPIUM-ALBUTEROL 3 ML NEB INHALATION SCH ×4 (08:04→19:57)
[2020-04-12 08:21] LABS: HCT 25.7 % (34.0-46.0); HGB 7.7 gm/dL (11.4-16.0); Hypochromasia Marked; MCH 30.1 pg (25.0-35.0); MCV 100.1 fL (80.0-100.0); Macrocytosis Slight; Mean Platelet Volume 9.3; Platelet Count 150 k/uL (150-450); Poikilocytosis Slight; RBC 2.57 m/uL (3.80-5.40); RDW 15.9 % (11.5-15.5); WBC 14.3 k/uL (3.8-10.6)
[2020-04-12] MEDS: APIXABAN 2.5 MG TABLET PO SCH ×2 (08:45→19:42)
[2020-04-12] MEDS: HYDROPHILIC CREAM 180 GM TUBE TOPICAL SCH (08:45)
[2020-04-12] MEDS: NICOTINE 21MG/24HR PATCH TRANSDERM SCH (08:45)
[2020-04-12] MEDS: PANTOPRAZOLE 40 MG TABLET PO SCH (08:45)
[2020-04-12 09:03] LABS: Band Neutrophils % 1 %; Eosinophils # (M) 0.29 k/uL (0-0.7); Lymphocytes # (M) 0.57 k/uL (1.0-4.8); Metamyelocytes # (M) 0.14 k/uL (0); Metamyelocytes % 1 %; Monocytes # (M) 0.43 k/uL (0-1.0); Myelocytes # (M) 0.14 k/uL (0); Myelocytes % 1 %; Neutrophils % (M) 90 %; Nucleated Red Blood Cells 0 /100 WBC (0-0); Total Cells Counted 200
[2020-04-12 09:05] LABS: Basophilic Stippling Present
--- NOTE | 2020-04-12 11:08 | P.PN ---
Subjective Patient is seen in follow-up for acute kidney injury, currently hemodialysis dependent. she was started on hemodialysis in March 30 for oliguria and volume overload. Remains oliguric. Still quite edematous. Oral intake fair. No vomiting or diarrhea. Vital signs are stable. General: The patient appeared well nourished and normally developed. HEENT: Head exam is unremarkable. Neck is without jugular venous distension. On BiPAP. LUNGS: Breath sounds decreased. HEART: Rate and Rhythm are regular. ABDOMEN: Soft, nontender. EXTREMITITES: 2+ edema. Objective - Vital Signs Vital signs: Vital Signs Temp 97.8 F 04/12/20 07:00 Pulse 80 04/12/20 08:13 Resp 16 04/12/20 07:00 BP 156/78 04/12/20 07:00 Pulse Ox 94 L 04/12/20 07:00 Intake & Output 04/11/20 04/12/20 04/12/20 18:59 06:59 18:59 Intake Total 147.841 Output Total 500 Balance -352.159 Weight 110 kg Intake: IV 50 cefTRIAXone 1 gm In 50 Sodium Chloride 0.9% 50 ml @ 100 mls/hr IVPB Q24HR [facility] Rx#:[id number] Intake, IV Titration 97.841 Amount Heparin Sod,Pork in 0.45% 97.841 NaCl 25,000 unit In 0.45 % NaCl 1 250ml.bag @ 18 UNITS/KG/HR 19.89 mls/hr IV .[id number] [facility] Rx#: [id number] Output: Urine 500 Straight 500 Other: Voiding Method Bedpan Bedpan # Voids 0 ABP, PAP, CO, CI - Last Documented Arterial Blood Pressure 137/60 - Labs CBC & Chem 7: 04/12/20 08:02 04/11/20 08:00 Labs: Abnormal Lab Results - Last 24 Hours (Table) 04/11/20 04/12/20 Range/Units 14:47 08:02 WBC 14.3 H (3.8-10.6) k/uL RBC 2.57 L (3.80-5.40) m/uL Hgb 7.7 L (11.4-16.0) gm/dL Hct 25.7 L (34.0-46.0) % MCV 100.1 H (80.0-100.0) fL MCHC 30.0 L (31.0-37.0) g/dL RDW 15.9 H (11.5-15.5) % Neutrophils # (Manual) 13.00 H (1.3-7.7) k/uL Lymphocytes # (Manual) 0.57 L (1.0-4.8) k/uL Metamyelocytes # (Man) 0.14 H (0) k/uL Myelocytes # (Manual) 0.14 H (0) k/uL Urine Appearance Turbid H (Clear) Urine Protein 2+ H (Negative) Urine Blood Moderate H (Negative) Ur Leukocyte Esterase Large H (Negative) Urine RBC 8 H (0-5) /hpf Urine WBC 104 H (0-5) /hpf Urine Bacteria Rare H (None) /hpf Urine Mucus Rare H (None) /hpf Urine Yeast (Budding) Few H (None) /hpf Microbiology - Last 24 Hours (Table) 04/11/20 14:47 Urine Culture - Preliminary Urine,Catheterized Assessment and Plan Plan: assessment: 1. Oliguric acute kidney injury secondary to ATN secondary to severe sepsis/hypotension. creatinine peaked at 5.1 this admission. Started on hemodialysis March 30. No evidence of hydronephrosis noted on ultrasound. Baseline creatinine near 1 from February 2019. 2. Acute hypercapnic respiratory failure. now on nasal cannula. 3. Hyperkalemia secondary to acute kidney injury, arb, and potassium supplementation. resolved. 4. Severe sepsis maintained on antibiotics. Likely source cholecystitis. Infectious disease following. 5. Transaminitis likely from hypoperfusion. Hepatitis panel negative. acetaminophen level not high. improving. 6. Metabolic acidosis secondary to acute kidney injury. improved postdialysis. 7. Volume overload. improving with ultrafiltration. 8. Anemia status post blood transfusion this admission. Hemoglobin stable today. Plan: Hemodialysis today. Add Lasix 80 mg orally twice daily. sales performance manager to set up outpatient hemodialysis. Continue to monitor for renal recovery. Add Aranesp.
[2020-04-12] MEDS ORDERED: DARBEPOETIN ALFA 40 MCG/0.4 ML SYRINGE SQ SCH (11:30)
[2020-04-12 12:43] LABS: African American GFR (CKD) 16.5 (60.0-200.0); Albumin 2.8 g/dL (3.80-4.90); Albumin/Globulin Ratio 1.27 (1.60-3.17); Anion Gap 7.7 mmol/L (4.00-12.00); BUN/Creat Ratio 13.03 Ratio (12.00-20.00); Calcium 8.5 mg/dL (8.7-10.3); Carbon Dioxide 25.3 mmol/L (21.6-31.8); Globulin 2.2 g/dL (1.6-3.3); Non-African American GFR(CKD) 14.2 (60.0-200.0); Potassium 4.7 mmol/L (3.5-5.5); Total Bilirubin 0.6 mg/dL (0.3-1.2)
[2020-04-12] MEDS: CEFEPIME 2 GM in SODIUM CHLORIDE 0.9% 100 ML IVPB SCH (15:06)
--- NOTE | 2020-04-12 19:29 | P.PN ---
Progress Note - Text Progress Note Date: 04/12/20 Chief Complaint: Tired Hospital course: Patient is 64-year-old female, was family doctor is Dr. pam Baker. Chronic stable medical conditions include chronic pain currently on a morphine pump , hypertension, CHF, and prior stroke who presented to the [facility] department . Per the ER report patient is having difficulty breathing. Daughter called and found the same. Patient had a pain pump replaced 3 days ago. She follows with Dr. Hutton for pain pump. 3 days also she states she started having a fever. She has long-standing smoker. Baseline cough. No increased shortness of breath. Did receive some Narcan in the ER as she was a bit lethargic. When she got to the floor she again became lethargic blood gases sitting up pH of 6.88. It seemed to be a mixed respiratory and metabolic acidosis. Patient was therefore moved to the ICU with the orders for BiPAP. When I came to the ICU patient was using a BiPAP and was able to answer questions. She had a temperature of 100 the ER. On the floor she dropped respiratory rate also. She is put on a Narcan drip. Patient admitted with-metabolic encephalopathy likely from pain medications, acute hypoxic and hypercapnic respiratory failure from medications, acute kidney injury, acute ischemic hepatitis, septic shock, mixed metabolic and respiratory acidosis. Admitted ICU. Patient is put on a BiPAP. IV fluids. Levo fed. Bicarbonate. I spoke to Dr. Agee from neurology last night. Patient had his pain pump relocated from the spine to the anterior abdominal wound. It is intrathecal. Dose of morphine was not changed. Patient also was placed on Narcan drip. To which she responded well. Started on hemodialysis March 30. Admitted with-acute metabolic encephalopathy felt to be multifactorial, severe ischemic hepatitis from hypotension, acute kidney injury, likely ATN started on hemodialysis, septic shock, acute hypoxic and hypercapnic respiratory failure, metabolic and respiratory acidosis, COPD exacerbation. Empirically put on antibiotics source of infection unclear. Morphine dose in the pain pump decreased by Dr. Vee.patient felt to have cholecystitis. because of being clinically unstable decided not to proceed with any surgery. Patient responded to antibiotics.Doppler ultrasound confirmed DVT in the right upper extremity. Started on IV heparin. Then switch to eliquis. Today-sitting up in a chair. A bit tired. Getting dialysis. Appetite much improved Review of systems: Was done for constitutional, cardiovascular, GI, pulmonary. relevant finding as above Active Medications Albuterol/Ipratropium (Ipratropium-Albuterol 3 Ml Neb) 3 ml INHALATION RT-Q2H PRN PRN Reason: Shortness Of Breath Or Wheezing Albuterol/Ipratropium (Ipratropium-Albuterol 3 Ml Neb) 3 ml INHALATION RT-QID [facility] Last Admin: 04/12/20 16:23 Dose: 3 ml Documented by: Apixaban (Apixaban 2.5 Mg Tablet) 2.5 mg PO BID [facility] Last Admin: 04/12/20 08:45 Dose: 2.5 mg Documented by: Darbepoetin [place] (Darbepoetin [place] 40 Mcg/0.4 Ml Syringe) 40 mcg SQ Q7D [facility] Last Admin: 04/12/20 12:10 Dose: 40 mcg Documented by: Docusate Sodium (Docusate 100 Mg Cap) 100 mg PO BID PRN PRN Reason: Constipation Gabapentin (Gabapentin 100 Mg Cap) 100 mg PO HS [facility] Last Admin: 04/11/20 20:20 Dose: 100 mg Documented by: Cefepime HCl 2 gm/ Sodium (Chloride) 100 mls @ 25 mls/hr IVPB Q24H [facility] Last Admin: 04/12/20 15:06 Dose: 25 mls/hr Documented by: Multi-Ingred Cream/Lotion/Oil/Oint (Hydrophilic Cream 180 Gm Tube) 1 applic TOPICAL DAILY [facility] Last Admin: 04/12/20 08:45 Dose: 1 applic Documented by: Naloxone HCl (Naloxone 0.4 Mg/Ml 1 Ml Vial) 0.2 mg IVP Q2M PRN PRN Reason: Opioid Reversal Last Admin: 03/28/20 17:23 Dose: 0.2 mg Documented by: Nicotine (Nicotine 21mg/24hr Patch) 1 patch TRANSDERM DAILY [facility] Last Admin: 04/12/20 08:45 Dose: 1 patch Documented by: Ondansetron HCl (Ondansetron 4 Mg/2 Ml Vial) 4 mg IVP Q6HR PRN PRN Reason: Nausea And Vomiting Last Admin: 04/06/20 16:07 Dose: 4 mg Documented by: Pantoprazole Sodium (Pantoprazole 40 Mg Tablet) 40 mg PO DAILY [facility] Last Admin: 04/12/20 08:45 Dose: 40 mg Documented by: Ropinirole HCl (Ropinirole Hcl 1 Mg Tab) 1 mg PO HS [facility] Last Admin: 04/11/20 20:20 Dose: 1 mg Documented by: Physical examination: VITAL SIGNS: 98.2, 60, 17, 112/56, 100% room air GENERAL: Sitting up in a chair, awake and smiling. Hemodialysis catheter in the right jugular vein EYES: Pupils equal. Conjunctiva pale. HEENT: External appearance of nose and ears normal, oral cavity grossly normal. NECK: JVD unable to assess; masses not palpable. HEART: First and second heart sounds are normal; no edema. LUNGS: Respiratory rate increased, diminished breath sounds EXTREMITIES: Right upper extremity swollen ABDOMEN: Soft, nontender, liver spleen not palpable, no masses palpable. Right abdominal incision site healing well with the underlying pain pump PSYCH: Answering questions appropriately INVESTIGATIONS, reviewed in the clinical context: White count 14.3 hemoglobin 7.7 potassium 4.7 creatinine 3.3 UA positive for leukoesterase Admission testing White count 21.8 hemoglobin 13.6 increased neutrophils potassium 6.4 bun 29 creatinine 4.12 Lactic acid 3.2 troponin I 0.911 AST 1741, ALT 1788 Hepatitis B surface antigen, core IgM antibody, hepatitis C IgG antibody all nonreactive ABG-pH 6.98, pCO2 98, bicarb 23 acetaminophen level less than 10 UA-negative for nitrate and leukoesterase EKG tracing personally reviewed by me-normal sinus rhythm some T-wave changes Computed tomography scan of the abdomen and pelvis-nonspecific Computed tomography scan of the brain-unremarkable Chest x-ray film personally reviewed by me-no obvious infiltrate, some elevations right diaphragm Abdominal ultrasound-taken gallbladder wall suggestive pericholecystic fluid, CBD 7 mm C. difficile-negative COVID 19 PCR not detected Hepatitis A IgM antibody nonreactive -Blood culture negative Doppler-DVT IN THE JUGULAR VEIN AND THE BRACHIAL VEIN. SUPERFICIAL THROMBUS IN THE CEPHALIC VEIN. Previous testing: renal function is normal in December 2018 Assessment: -Acute metabolic encephalopathy. In the setting of acute renal failure patients on Neurontin [place] Seroquel Xanax Requip and viibryd. Received Narcan -improved -Chronic pain syndrome with a morphine pain pump that for relocated from the spine to the anterior abdominal wall 3 days prior to admission being followed by Dr. bedolla,-morphine dose decreased -Obesity BMI 34.5 -Severe ischemic hepatitis from hypotension-improving -Acute kidney injury likely ATN and worsening-started on hemodialysis March 30 -Septic shock and blood pressure dropping down to the 70s systolic. Status post pressor support corrected -Chronic L1 compression fracture -Acute hypoxic and hypercapnic respiratory failure responding to now on nasal cannula -Mixed metabolic and respiratory acidosis -Chronic nicotine dependence, patient is a cigarette smoker -Acute COPD exacerbation in a current smoker -Low-grade fever and infection site questionable cholecystitis-on antibiotics. patient managed with antibiotics. Surgery postponed. To be done when patient is most stable. -Essential hypertension- -Macrocytic anemia. Symptomatic. Low blood pressure.-transfuse blood -Acute DVT in the right jugular vein and brachial vein. Superficial thrombus in the cephalic vein. Discussed with Dr. Lao from vascular surgery. Keep the dialysis catheter. Started IV heparin. -Increasing leukocytosis. Could be from DVT. Clinically patient is much better. Plan: Patient IV cefepime. Continue eliquis. Ending discharge to rehab. Other medications to continue.
[2020-04-12] MEDS: GABAPENTIN 100 MG CAP PO SCH (19:42)
[2020-04-12] MEDS ORDERED: FLUCONAZOLE 100 MG TAB PO ONE (22:10)
--- NOTE | 2020-04-13 02:17 | PN ---
PROGRESS NOTE DATE OF SERVICE: 04/12/2020 REASON FOR FOLLOWUP: Leukocytosis likely UTI. INTERVAL HISTORY: The patient is currently afebrile. The patient is feeling better. Breathing comfortably. Denies having any chest pain. No shortness of breath or cough. No nausea, vomiting. No abdominal pain or diarrhea. PHYSICAL EXAMINATION: Her blood pressure is 152/78 with a pulse of 94, temperature 97.4. She is 92% on 4 L nasal cannula. General description is a middle-aged female up in the bed in no distress. RESPIRATORY SYSTEM: Unlabored breathing, decreased breath sounds at bases. No wheeze. HEART: S1, S2. Regular rate and rhythm. ABDOMEN: Soft, no tenderness. LABS: Hemoglobin 7.7, white count 14.3, creatinine 3.3. Urine showing the yeast. DIAGNOSTIC IMPRESSION AND PLAN: Patient with elevated white count, multifactorial likely component of urinary tract infection. Urine showing yeast to continue with Diflucan for about a week and to discontinue on cefepime on discharge. MMODL / IJN: [id number] /
[2020-04-13 06:25] LABS: HCT 23.7 % (34.0-46.0); HGB 7.5 gm/dL (11.4-16.0); Hypochromasia Marked; MCH 31.1 pg (25.0-35.0); MCHC 31.5 g/dL (31.0-37.0); MCV 98.7 fL (80.0-100.0); Macrocytosis Slight; Mean Platelet Volume 9.8; Platelet Count 145 k/uL (150-450); Poikilocytosis Slight; RDW 15.6 % (11.5-15.5)
[2020-04-13] MEDS: HYDROPHILIC CREAM 180 GM TUBE TOPICAL SCH (08:05)
[2020-04-13] MEDS: NICOTINE 21MG/24HR PATCH TRANSDERM SCH (08:05)
[2020-04-13 08:19] LABS: Band Neutrophils % 1 %; Monocytes # (M) 0.29 k/uL (0-1.0); Myelocytes % 1 %; Neutrophils % (M) 88 %; Nucleated Red Blood Cells 1 /100 WBC (0-0); Total Cells Counted 200
[2020-04-13 08:20] LABS: Eosinophils # (M) 0.14 k/uL (0-0.7); Lymphocytes # (M) 1.15 k/uL (1.0-4.8); Myelocytes # (M) 0.14 k/uL (0); WBC 14.4 k/uL (3.8-10.6)
[2020-04-13] MEDS ORDERED: FLUCONAZOLE 100 MG TAB PO SCH (09:00)
[2020-04-13] MEDS: IPRATROPIUM-ALBUTEROL 3 ML NEB INHALATION SCH ×3 (09:04→16:41)
[2020-04-13 09:13] LABS: African American GFR (CKD) 23.1 (60.0-200.0); Anion Gap 8.9 mmol/L (4.00-12.00); BUN/Creat Ratio 13.2 Ratio (12.00-20.00); Calcium 8.3 mg/dL (8.7-10.3); Carbon Dioxide 26.1 mmol/L (21.6-31.8); Non-African American GFR(CKD) 19.9 (60.0-200.0); Potassium 4.2 mmol/L (3.5-5.5)
--- NOTE | 2020-04-13 10:49 | P.PN ---
Subjective Patient is seen in follow-up for acute kidney injury, currently hemodialysis dependent. she was started on hemodialysis in March 30 for oliguria and volume overload. Remains oliguric. Still quite edematous. Oral intake fair. No vomiting or diarrhea. Vital signs are stable. General: The patient appeared well nourished and normally developed. HEENT: Head exam is unremarkable. Neck is without jugular venous distension. On BiPAP. LUNGS: Breath sounds decreased. HEART: Rate and Rhythm are regular. ABDOMEN: Soft, nontender. EXTREMITITES: 2+ edema. Objective - Vital Signs Vital signs: Vital Signs Temp 98.2 F 04/13/20 07:00 Pulse 94 04/13/20 07:00 Resp 16 04/13/20 07:00 BP 155/89 04/13/20 07:00 Pulse Ox 90 L 04/13/20 07:00 Intake & Output 04/12/20 04/13/20 04/13/20 18:59 06:59 18:59 Intake Total 300 1000 Output Total 3300 50 Balance -3000 1000 -50 Weight 103 kg Intake: Oral 1000 Hemodialysis 300 Output: Urine 50 Hemodialysis 3300 Other: Voiding Method Bedpan Bedpan # Voids 0 1 ABP, PAP, CO, CI - Last Documented Arterial Blood Pressure 137/60 - Labs CBC & Chem 7: 04/13/20 06:00 04/13/20 05:30 Labs: Abnormal Lab Results - Last 24 Hours (Table) 04/12/20 04/13/20 04/13/20 Range/Units 08:02 05:30 06:00 WBC 14.4 H (3.8-10.6) k/uL RBC 2.40 L (3.80-5.40) m/uL Hgb 7.5 L (11.4-16.0) gm/dL Hct 23.7 L (34.0-46.0) % RDW 15.6 H (11.5-15.5) % Plt Count 145 L (150-450) k/uL Neutrophils # (Manual) 12.80 H (1.3-7.7) k/uL Myelocytes # (Manual) 0.14 H (0) k/uL Nucleated RBCs 1 H (0-0) /100 WBC BUN 43.0 H 33.0 H (9.0-27.0) mg/dL Creatinine 3.3 H 2.5 H (0.6-1.5) mg/dL Est GFR (CKD-EPI)AfAm 16.5 L 23.1 L (60.0-200.0) Est GFR (CKD-EPI)NonAf 14.2 L 19.9 L (60.0-200.0) Calcium 8.5 L 8.3 L (8.7-10.3) mg/dL ALT 73 H (8-44) U/L Alkaline Phosphatase 151 H (41-126) U/L Total Protein 5.0 L (6.2-8.2) g/dL Albumin 2.80 L (3.80-4.90) g/dL Albumin/Globulin Ratio 1.27 L (1.60-3.17) g/dL Microbiology - Last 24 Hours (Table) 04/11/20 14:47 Urine Culture - Preliminary Urine,Catheterized Yeast species Assessment and Plan Plan: assessment: 1. Oliguric acute kidney injury secondary to ATN secondary to severe sepsis/hypotension. creatinine peaked at 5.1 this admission. Started on hemodialysis March 30. No evidence of hydronephrosis noted on ultrasound. Baseline creatinine near 1 from February 2019. 2. Acute hypercapnic respiratory failure. now on nasal cannula. 3. Hyperkalemia secondary to acute kidney injury, arb, and potassium supplementation. resolved. 4. Severe sepsis maintained on antibiotics. Likely source cholecystitis. Infectious disease following. 5. Transaminitis likely from hypoperfusion. Hepatitis panel negative. acetaminophen level not high. improving. 6. Metabolic acidosis secondary to acute kidney injury. improved postdialysis. 7. Volume overload. improving with ultrafiltration. 8. Anemia status post blood transfusion this admission. Hemoglobin stable today. Maintained on Aranesp. Plan: Hemodialysis today - she will be maintained on Sunday schedule outpatient. Continue Lasix 80 mg orally twice daily. assistant inventory manager to set up outpatient hemodialysis. Continue to monitor for renal recovery outpatient.
[2020-04-13 11:04] VITALS: BMI 35.5
[2020-04-13] MEDS: APIXABAN 2.5 MG TABLET PO SCH (12:02)
[2020-04-13] MEDS: PANTOPRAZOLE 40 MG TABLET PO SCH (12:02)
--- NOTE | 2020-04-13 13:09 | PN ---
PROGRESS NOTE DATE OF SERVICE: 04/13/2020 REASON FOR FOLLOWUP: Urinary tract infection. INTERVAL HISTORY: The patient is currently afebrile. The patient is breathing comfortably. Overall feeling better. The patient denies having any chest pain or cough. No abdominal pain, no diarrhea. PHYSICAL EXAMINATION: Blood pressure 155/80 with a pulse of 74, temperature 98.2. She is 98% on 4 L nasal cannula. General description is a middle-aged female up in the bed in no distress. RESPIRATORY SYSTEM: Unlabored breathing, decreased breath sounds in the base, with no wheeze. HEART: S1, S2. Regular rate and rhythm. ABDOMEN: Soft, no tenderness. LAB: Hemoglobin 7.5, white count 14.4, creatinine is 2.5. DIAGNOSTIC IMPRESSION AND PLAN: Patient with elevated white count is multifactorial with urine showing yeast. Currently covered with Diflucan. However, the patient did have an IJ that should be discontinued, as more likely responsible for this elevated white count and colitis as discussed with the nursing staff. MMODL / IJN: [id number] /
[2020-04-13 15:33] VITALS: BP 159/93; RESP 15; TEMP 97.7
[2020-04-13 16:55] VITALS: PULSE 90
--- NOTE | 2020-04-13 23:39 | P.DS ---
Providers Date of admission: 03/28/20 14:15 Expected date of discharge: 04/13/20 Attending physician: Miguel Kelly Consults: 03/28/20 14:17 Consult Physician Urgent Consulting Provider: Nikki Allen Consult Reason/Comments: Elevated troponin Do you want consulting provider notified?: Already Contacted 03/28/20 14:18 Consult Physician Urgent Consulting Provider: Jovan Billingsley Consult Reason/Comments: Acute renal failure Do you want consulting provider notified?: Yes Consult Physician Urgent Consulting Provider: Pito Graves Consult Reason/Comments: sepsis Do you want consulting provider notified?: Yes 03/28/20 16:56 Consult Physician Stat Consulting Provider: Ermias Linares Consult Reason/Comments: abnormal ABG's Do you want consulting provider notified?: Yes 03/29/20 07:43 Consult to Anesthesia Stat Consulting Provider: Anesthesia,Services Consult Reason/Comments: new pain pump, r/o malfunction. 03/30/20 10:22 Consult Physician Routine Consulting Provider: Elias Wilson Consult Reason/Comments: Dialysis catheter insertion Do you want consulting provider notified?: Yes Primary care physician: Juan Diego Issa [facility] Course: Chief Complaint: Tired Hospital course: Patient is 64-year-old female, was family doctor is Dr. pam Baker. Chronic stable medical conditions include chronic pain currently on a morphine pump , hypertension, CHF, and prior stroke who presented to the emergency department . Per the ER report patient is having difficulty breathing. Daughter called and found the same. Patient had a pain pump replaced 3 days ago. She follows with Dr. Hutton for pain pump. 3 days also she states she started having a fever. She has long-standing smoker. Baseline cough. No increased shortness of breath. Did receive some Narcan in the ER as she was a bit lethargic. When she got to the floor she again became lethargic blood gases sitting up pH of 6.88. It seemed to be a mixed respiratory and metabolic acidosis. Patient was therefore moved to the ICU with the orders for BiPAP. When I came to the ICU patient was using a BiPAP and was able to answer questions. She had a temperature of 100 the ER. On the floor she dropped respiratory rate also. She is put on a Narcan drip. Patient admitted with-metabolic encephalopathy likely from pain medications, acute hypoxic and hypercapnic respiratory failure from medications, acute kidney injury, acute ischemic hepatitis, septic shock, mixed metabolic and respiratory acidosis. Admitted ICU. Patient is put on a BiPAP. IV fluids. Levo fed. Bicarbonate. I spoke to Dr. Agee from neurology last night. Patient had his pain pump relocated from the spine to the anterior abdominal wound. It is intrathecal. Dose of morphine was not changed. Patient also was placed on Narcan drip. To which she responded well. Started on hemodialysis March 30. Admitted with-acute metabolic encephalopathy felt to be multifactorial, severe ischemic hepatitis from hypotension, acute kidney injury, likely ATN started on hemodialysis, septic shock, acute hypoxic and hypercapnic respiratory failure, metabolic and respiratory acidosis, COPD exacerbation. Empirically put on antibiotics source of infection unclear. Morphine dose in the pain pump decreased by Dr. Vee.patient felt to have cholecystitis. because of being clinically unstable decided not to proceed with any surgery. Patient responded to antibiotics.Doppler ultrasound confirmed DVT in the right upper extremity. Started on IV heparin. Then switch to eliquis. Today-comfortable. Eager to go home. Spoke to patient's daughter at length over the phone. Like the patient to come home. Does not want to go to [facility] which was an option. Does not like the place. Discussed with social work case manager and drug abuse social worker. Discussion and discharge planning more than 35 minutes Consultation: Dr. Graves from [facility] Nephrology Dr. Lao from vascular surgery Dr. Mccartney from general surgery [facility] Physical examination: VITAL SIGNS: 97.6, 97, 22, 146/80, he 4% on 4 L GENERAL: Sitting up in a chair, awake and smiling. Hemodialysis catheter in the right jugular vein EYES: Pupils equal. Conjunctiva pale. HEENT: External appearance of nose and ears normal, oral cavity grossly normal. NECK: JVD unable to assess; masses not palpable. HEART: First and second heart sounds are normal; no edema. LUNGS: Respiratory rate increased, diminished breath sounds EXTREMITIES: Right upper extremity swollen ABDOMEN: Soft, nontender, liver spleen not palpable, no masses palpable. Right abdominal incision site healing well with the underlying pain pump PSYCH: Answering questions appropriately INVESTIGATIONS, reviewed in the clinical context: White count hemoglobin 7.5 UA positive for leukoesterase Admission testing White count 21.8 hemoglobin 13.6 increased neutrophils potassium 6.4 bun 29 creatinine 4.12 Lactic acid 3.2 troponin I 0.911 AST 1741, ALT 1788 Hepatitis B surface antigen, core IgM antibody, hepatitis C IgG antibody all nonreactive ABG-pH 6.98, pCO2 98, bicarb 23 acetaminophen level less than 10 UA-negative for nitrate and leukoesterase EKG tracing personally reviewed by me-normal sinus rhythm some T-wave changes Computed tomography scan of the abdomen and pelvis-nonspecific Computed tomography scan of the brain-unremarkable Chest x-ray film personally reviewed by me-no obvious infiltrate, some elevations right diaphragm Abdominal ultrasound-taken gallbladder wall suggestive pericholecystic fluid, CBD 7 mm C. difficile-negative COVID 19 PCR not detected Hepatitis A IgM antibody nonreactive -Blood culture negative Doppler-DVT IN THE JUGULAR VEIN AND THE BRACHIAL VEIN. SUPERFICIAL THROMBUS IN THE CEPHALIC VEIN. Previous testing: renal function is normal in December 2018 Assessment: -Acute metabolic encephalopathy. In the setting of acute renal failure patients on Neurontin [place] Seroquel Xanax Requip and viibryd. Received Narcan -improved -Chronic pain syndrome with a morphine pain pump that for relocated from the spine to the anterior abdominal wall 3 days prior to admission being followed by Dr. bedolla,-morphine dose decreased -Obesity BMI 34.5 -Severe ischemic hepatitis from hypotension-improving -Acute kidney injury likely ATN and worsening-started on hemodialysis March 30 -Septic shock and blood pressure dropping down to the 70s systolic. Status post pressor support corrected -Chronic L1 compression fracture -Acute hypoxic and hypercapnic respiratory failure responding to now on nasal cannula -Mixed metabolic and respiratory acidosis -Chronic nicotine dependence, patient is a cigarette smoker -Acute COPD exacerbation in a current smoker -Low-grade fever and infection site questionable cholecystitis-on antibiotics. patient managed with antibiotics. Surgery postponed. To be done when patient is most stable. -Essential hypertension- -Macrocytic anemia. Symptomatic. Low blood pressure.-transfuse blood -Acute DVT in the right jugular vein and brachial vein. Superficial thrombus in the cephalic vein. Discussed with Dr. Lao from vascular surgery. Keep the dialysis catheter. Started IV heparin.-Changed over to eliquis -leukocytosis. Likely from DVT. Clinically patient is much better. Disposition: Home Patient Condition at Discharge: Stable Plan - Discharge Summary Discharge Rx Participant: No New Discharge Prescriptions: New Citalopram Hydrobromide [CeleXA] 10 mg PO DAILY tab carvediloL [Coreg] 3.125 mg PO BID-W/MEALS tab Ipratropium-Albuterol Nebulize [Duoneb 0.5 mg-3 mg/3 ml Soln] 3 ml INHALATION RT-QID ml Nicotine 21Mg/24Hr Patch [Habitrol] 1 patch TRANSDERM DAILY patch Pantoprazole [Protonix] 40 mg PO DAILY tablet.dr Hydrophilic Cream [Triad Cream] 1 applic TOPICAL DAILY applic ALPRAZolam [Xanax] 0.25 mg PO BID PRN #6 tab PRN Reason: Anxiety Apixaban [Eliquis] 2.5 mg PO BID #60 tablet Gabapentin [Neurontin] 100 mg PO HS #14 cap Continue Ergocalciferol (Vitamin D2) [Drisdol] 50,000 unit PO STEVENSON Cyanocobalamin (Vitamin B-12) [Vitamin B-12] 1,000 mcg PO DAILY Morphine/Bupivacaine Pump 0 ml .ROUTE CONTINUOUS rOPINIRole HCL [Requip] 1 mg PO HS Discontinued HYDROcodone/APAP 10-325MG [[place] 10-325] 1 tab PO TID PRN PRN Reason: Pain Atorvastatin Calcium [Lipitor] 20 mg PO DAILY hydrOXYzine HCL [Atarax] 10 mg PO TID PRN #12 tab PRN Reason: Itching Sucralfate [Carafate] 2 gm PO BID Gabapentin [Neurontin] 300 mg PO TID QUEtiapine [SEROquel] 100 mg PO HS Irbesartan [Avapro] 75 mg PO BID ALPRAZolam [Xanax] 0.5 mg PO TID PRN PRN Reason: Anxiety Furosemide [Lasix] 40 mg PO DAILY Potassium Chloride ER [K-Dur 10] 10 meq PO DAILY Vilazodone HCl [Viibryd] 10 mg PO DAILY Discharge Medication List Ergocalciferol (Vitamin D2) [Drisdol] 50,000 unit PO STEVENSON 09/02/18 [History] Cyanocobalamin (Vitamin B-12) [Vitamin B-12] 1,000 mcg PO DAILY 05/27/19 [History] Morphine/Bupivacaine Pump 0 ml .ROUTE CONTINUOUS 05/27/19 [History] rOPINIRole HCL [Requip] 1 mg PO HS 03/28/20 [History] ALPRAZolam [Xanax] 0.25 mg PO BID PRN #6 tab 04/08/20 [Rx] Citalopram Hydrobromide [CeleXA] 10 mg PO DAILY tab 04/08/20 [Rx] Hydrophilic Cream [Triad Cream] 1 applic TOPICAL DAILY applic 04/08/20 [Rx] Ipratropium-Albuterol Nebulize [Duoneb 0.5 mg-3 mg/3 ml Soln] 3 ml INHALATION RT-QID ml 04/08/20 [Rx] Nicotine 21Mg/24Hr Patch [Habitrol] 1 patch TRANSDERM DAILY patch 04/08/20 [Rx] Pantoprazole [Protonix] 40 mg PO DAILY tablet. 04/08/20 [Rx] carvediloL [Coreg] 3.125 mg PO BID-W/MEALS tab 04/08/20 [Rx] Apixaban [Eliquis] 2.5 mg PO BID #60 tablet 04/13/20 [Rx] Gabapentin [Neurontin] 100 mg PO HS #14 cap 04/13/20 [Rx] Follow up Appointment(s)/Referral(s): Santiago Merritt MD [STAFF PHYSICIAN] - 04/20/20 2:30 pm Dialysis,[facility] [NON-STAFF] - 04/13/20 10:30 am (Hemodialysis on Tuesdays, , and Saturdays at 11:30a.m. Patient should arrive at dialysis at 11:15 for her first treatment. ) [facility] [NON-STAFF] - As Needed (oxygen and wheelchair) [facility], [NON-STAFF] - As Needed Rocco Roberts MD [Medical Doctor] - 1 Week Juan Diego Issa MD [Primary Care Provider] - 04/19/20 11:45 am Patient Instructions/Handouts: Deep Vein Thrombosis (DC), Sepsis (GEN) Activity/Diet/Wound Care/Special Instructions: Pt requiring home oxygen to manage dx: COPD. Pt requiring wheelchair to complete ADLs due to dx: COPD. Pt requiring hospital bed to manage dyspnea due to dx: COPD and will need HOB up at 30 degrees at all times. Patient to follow-up outpatient with a general surgeon that she prefers Follow up with Dr. Roberts regarding Morphine pump and staple removal. send with bacilio wraps Discharge Disposition: HOME SELF-CARE
== END 2020-04-13 18:26 | disposition home or self-care (01) | DRG 871 ==
LOC: EC 11:00 → 3SCARD 14:15 → 2SICU 17:31 → 4SSUR 04-03 15:55
PROVIDERS: ADMIT Hospitalist; ATTEND Hospitalist
PROC: 5A09457 Assistance with Respiratory Ventilation, 24-96 Consecutive Hours, Continuous Positive Airway Pressure (ICD-10-PCS; principal; 2020-03-28)
PROC: 3E033XZ Introduction of Vasopressor into Peripheral Vein, Percutaneous Approach (ICD-10-PCS; 2020-03-28)
PROC: 5A1D70Z Performance of Urinary Filtration, Intermittent, Less than 6 Hours Per Day (ICD-10-PCS; 2020-03-30)
PROC: 06HM33Z Insertion of Infusion Device into Right Femoral Vein, Percutaneous Approach (ICD-10-PCS; 2020-03-30)
PROC: 03HY32Z Insertion of Monitoring Device into Upper Artery, Percutaneous Approach (ICD-10-PCS; 2020-03-30)
PROC: 4A133J1 Monitoring of Arterial Pulse, Peripheral, Percutaneous Approach (ICD-10-PCS; 2020-03-30)
PROC: 4A133B1 Monitoring of Arterial Pressure, Peripheral, Percutaneous Approach (ICD-10-PCS; 2020-03-30)
PROC: 02HV33Z Insertion of Infusion Device into Superior Vena Cava, Percutaneous Approach (ICD-10-PCS; 2020-03-30)
PROC: 06H033Z Insertion of Infusion Device into Inferior Vena Cava, Percutaneous Approach (ICD-10-PCS; 2020-04-04 08:50)
PROC: 02PYX3Z Removal of Infusion Device from Great Vessel, External Approach (ICD-10-PCS; 2020-04-04 08:50)
PROC: 30233P1 Transfusion of Nonautologous Frozen Red Cells into Peripheral Vein, Percutaneous Approach (ICD-10-PCS; 2020-04-11)
DX: A41.9 Sepsis, unspecified organism (principal); G93.41 Metabolic encephalopathy; J18.9 Pneumonia, unspecified organism; J96.01 Acute respiratory failure with hypoxia; J96.02 Acute respiratory failure with hypercapnia; K72.00 Acute and subacute hepatic failure without coma; N17.0 Acute kidney failure with tubular necrosis; R65.21 Severe sepsis with septic shock; E87.1 Hypo-osmolality and hyponatremia; E87.4 Mixed disorder of acid-base balance; I13.0 Hypertensive heart and chronic kidney disease with heart failure and stage 1 through stage 4 chronic kidney disease, or unspecified chronic kidney disease; T82.868A Thrombosis due to vascular prosthetic devices, implants and grafts, initial encounter; I82.611 Acute embolism and thrombosis of superficial veins of right upper extremity; I82.621 Acute embolism and thrombosis of deep veins of right upper extremity; J44.0 Chronic obstructive pulmonary disease with (acute) lower respiratory infection; J44.1 Chronic obstructive pulmonary disease with (acute) exacerbation; J98.11 Atelectasis; K81.0 Acute cholecystitis; M48.56XA Collapsed vertebra, not elsewhere classified, lumbar region, initial encounter for fracture; N39.0 Urinary tract infection, site not specified; I24.8 Other forms of acute ischemic heart disease; Z20.828 Contact with and (suspected) exposure to other viral communicable diseases; I50.9 Heart failure, unspecified; D53.9 Nutritional anemia, unspecified; D69.6 Thrombocytopenia, unspecified; E61.1 Iron deficiency; E66.01 Morbid (severe) obesity due to excess calories; Z68.34 Body mass index [BMI] 34.0-34.9, adult; E78.5 Hyperlipidemia, unspecified; E87.5 Hyperkalemia; F17.210 Nicotine dependence, cigarettes, uncomplicated; F31.9 Bipolar disorder, unspecified; F41.9 Anxiety disorder, unspecified; G89.4 Chronic pain syndrome; Z86.73 Personal history of transient ischemic attack (TIA), and cerebral infarction without residual deficits; Y82.9 Unspecified medical devices associated with adverse incidents; K21.9 Gastro-esophageal reflux disease without esophagitis; K75.89 Other specified inflammatory liver diseases; K82.8 Other specified diseases of gallbladder; M19.90 Unspecified osteoarthritis, unspecified site; N18.9 Chronic kidney disease, unspecified; T40.601A Poisoning by unspecified narcotics, accidental (unintentional), initial encounter; Z91.81 History of falling; S92.919A Unspecified fracture of unspecified toe(s), initial encounter for closed fracture; R55 Syncope and collapse; M51.36 Other intervertebral disc degeneration, lumbar region; M43.16 Spondylolisthesis, lumbar region; Z79.899 Other long term (current) drug therapy; Z80.9 Family history of malignant neoplasm, unspecified; Z83.3 Family history of diabetes mellitus; Z79.891 Long term (current) use of opiate analgesic; Z88.0 Allergy status to penicillin; Z88.2 Allergy status to sulfonamides; Z88.6 Allergy status to analgesic agent; Z91.011 Allergy to milk products
CPT/HCPCS: 36415; 36558; 36600; 51702; 70450; 71045; 74022; 74176; 76700; 76937; 77001; 80048; 80053; 80074; 80202; 80306; 80329; 81001; 82140; 82805; 83036; 83540; 83550; 83605; 83735; 84075; 84132; 84450; 84460; 84484; 85025; 85027; 85610; 85730; 86140; 86704; 86706; 86850; 86900; 86901; 86920; 87040; 87086; 87324; 87340; 90935; 93005; 93306; 94640; 94660; 94760; 96361; 96365; 96374; 96375; 99291

== ENCOUNTER 2020-04-17 11:59 | Inpatient (IN) | payer BC ==
[2020-04-17] MEDS ORDERED: SODIUM CHLORIDE 0.9% 1,000 ML IV STA (12:11)
[2020-04-17] MEDS ORDERED: PANTOPRAZOLE 40 MG/10 ML VIAL IVP STA (12:11)
--- NOTE | 2020-04-17 12:15 | ED ---
General Adult HPI - General Chief complaint: Recheck/Abnormal Lab/Rx Stated complaint: low hemoglobin Time Seen by Provider: 04/17/20 12:06 Source: patient, family, RN notes reviewed Mode of arrival: wheelchair Limitations: altered mental status, physical limitation - History of Present Illness Initial comments: Patient is a pleasant 64-year-old female presenting to the emergency Department with anemia. Patient had dialysis done 2 days ago and had a call today that her hemoglobin was 6.8. Patient was in the hospital recently with sepsis. Patient has been fatigued since that time. No bloody stools. No isolated area of weakness. Patient does feel generally weak. - Related Data Home Medications Medication Instructions Recorded Confirmed Ergocalciferol (Vitamin D2) 50,000 unit PO STEVENSON 09/02/18 03/28/20 [Drisdol] Cyanocobalamin (Vitamin B-12) 1,000 mcg PO DAILY 05/27/19 03/28/20 [Vitamin B-12] Morphine/Bupivacaine Pump 0 ml .ROUTE CONTINUOUS 05/27/19 03/28/20 rOPINIRole HCL [Requip] 1 mg PO HS 03/28/20 03/28/20 Previous Rx's Medication Instructions Recorded ALPRAZolam [Xanax] 0.25 mg PO BID PRN #6 tab 04/08/20 Citalopram Hydrobromide [CeleXA] 10 mg PO DAILY tab 04/08/20 Hydrophilic Cream [Triad Cream] 1 applic TOPICAL DAILY applic 04/08/20 Ipratropium-Albuterol Nebulize 3 ml INHALATION RT-QID ml 04/08/20 [Duoneb 0.5 mg-3 mg/3 ml Soln] Nicotine 21Mg/24Hr Patch [Habitrol] 1 patch TRANSDERM DAILY patch 04/08/20 Pantoprazole [Protonix] 40 mg PO DAILY tablet.dr 04/08/20 carvediloL [Coreg] 3.125 mg PO BID-W/MEALS tab 04/08/20 Apixaban [Eliquis] 2.5 mg PO BID #60 tablet 04/13/20 Fluconazole [Diflucan] 100 mg PO DAILY #5 tablet 04/13/20 Gabapentin [Neurontin] 100 mg PO HS #14 cap 04/13/20 Allergies Allergy/AdvReac Type Severity Reaction Status Date / Time Sulfa (Sulfonamide Allergy Severe Rash/Hives, Verified 04/17/20 12:08 Antibiotics) N & V, IRREGULAR HEART BEAT. aspirin Allergy IRREGULAR Verified 04/17/20 12:08 HEART BEAT, N & V, HIVES Penicillins Allergy Unknown Verified 04/17/20 12:08 Milk Containing Products AdvReac Diarrhea Verified 04/17/20 12:08 [Dairy] Review of Systems ROS Statement: Those systems with pertinent positive or pertinent negative responses have been documented in the HPI. ROS Other: All systems not noted in ROS Statement are negative. Constitutional: Denies: fever Eyes: Denies: eye pain ENT: Denies: ear pain Respiratory: Denies: cough Cardiovascular: Denies: chest pain Endocrine: Reports: fatigue Gastrointestinal: Denies: abdominal pain, melena, hematochezia Genitourinary: Denies: dysuria Musculoskeletal: Denies: back pain Skin: Denies: rash Neurological: Reports: as per HPI Past Medical History Past Medical History: Heart Failure, CVA/TIA, Hypertension, Osteoarthritis (OA), Syncope Additional Past Medical History / Comment(s): chronic back pain- has morphine pain pump implanted right abdomen., uses cane/walker prn., hx cva (pt did not know), syncope with hx of falls- states several concusions, fx spine 2018 MRI of the lumbar spine that was done in 2018 showed degenerative disc disease, facet arthropathy, spondylolisthesis, L1 endplate compression fracture without any significant spinal stenosis and the patient had a indwelling stimulator lead. , states swelling lower extremities., gastritis, having" burning in stomach, gas and change in stools", usually eat once daily. , states she broke 4 toes last week. History of Any Multi-Drug Resistant Organisms: None Reported Past Surgical History: Back Surgery Additional Past Surgical History / Comment(s): laproscopic surgery (for miscarriage), back injections Past Anesthesia/Blood Transfusion Reactions: No Reported Reaction Past Psychological History: Anxiety, Bipolar, Depression Smoking Status: Current some day smoker Past Alcohol Use History: None Reported Past Drug Use History: None Reported - Past Family History Father Family Medical History: Cancer, Diabetes Mellitus Mother Family Medical History: Cancer Brother(s) Family Medical History: Cancer Additional Family Medical History / Comment(s): agent orange General Exam Limitations: altered mental status, physical limitation Head exam: Present: normocephalic Eye exam: Present: normal appearance ENT exam: Present: normal oropharynx Neck exam: Present: normal inspection Respiratory exam: Present: normal lung sounds bilaterally Cardiovascular Exam: Present: regular rate, normal rhythm GI/Abdominal exam: Present: soft. Absent: tenderness Rectal exam: Present: normal inspection. Absent: bloody stool Extremities exam: Present: normal inspection Neurological exam: Present: alert. Absent: motor sensory deficit Psychiatric exam: Present: normal affect, normal mood Skin exam: Present: normal color Course Vital Signs 04/17/20 04/17/20 12:05 13:20 Temperature 97.4 F L Pulse Rate 83 67 Respiratory 18 20 Rate Blood Pressure 103/61 86/51 O2 Sat by Pulse 65 L 95 Oximetry EKG Findings - EKG Comments: EKG Findings:: normal sinus rhythm 72. RI 138. QRS 86. QT 360. QTC 394. Normal axis. Normal QRS. Nonspecific T waves. Procedures - ABG Interpretation Ph: 7.225 PCO2: 75.8 PO2: 61.5 Bicarbonate: 31.3 Interpretation: respiratory acidosis Medical Decision Making - Medical Decision Making patient reevaluated and updated. Patient will be given 1 unit of blood secondary to reported hemoglobin of 6.[address] Castellano has been paged for admission covering for hospital call. Chest x-ray showing pulmonary edema. ABG with respiratory acidosis. patient will be placed on BiPAP. Patient previously has seen Dr. Valeri Thorpe in and he will be placed on consult. Patient reevaluated. Patient and family are updated . - Lab Data Result diagrams: 04/17/20 12:19 04/17/20 12:19 Lab Results 04/17/20 04/17/20 04/17/20 Range/Units 12:19 12:19 12:19 WBC 4.9 (3.8-10.6) k/uL RBC 2.25 L (3.80-5.40) m/uL Hgb 6.8 L* (11.4-16.0) gm/dL Hct 22.7 L (34.0-46.0) % MCV 101.2 H (80.0-100.0) fL MCH 30.2 (25.0-35.0) pg MCHC 29.9 L (31.0-37.0) g/dL RDW 16.3 H (11.5-15.5) % Plt Count 81 L (150-450) k/uL Neutrophils % 78 % Lymphocytes % 11 % Monocytes % 4 % Eosinophils % 4 % Basophils % 1 % Neutrophils # 3.8 (1.3-7.7) k/uL Lymphocytes # 0.5 L (1.0-4.8) k/uL Monocytes # 0.2 (0-1.0) k/uL Eosinophils # 0.2 (0-0.7) k/uL Basophils # 0.1 (0-0.2) k/uL Manual Slide Review Performed Hypochromasia Marked Poikilocytosis Slight Anisocytosis Slight Macrocytosis Slight PT 12.4 H (9.0-12.0) sec INR 1.2 H (<1.2) APTT 24.1 (22.0-30.0) sec Sample Site ABG pH (7.35-7.45) ABG pCO2 (35-45) mmHg ABG pO2 (83-108) mmHg ABG HCO3 (21-25) mmol/L ABG Total CO2 (19-24) mmol/L ABG O2 Saturation (94-97) % ABG Base Excess mmol/L Daniel Test FiO2 % Sodium 132 L (137-145) mmol/L Potassium 3.2 L (3.5-5.1) mmol/L Chloride 95 L (98-107) mmol/L Carbon Dioxide 32 H (22-30) mmol/L Anion Gap 5 mmol/L BUN 33 H (7-17) mg/dL Creatinine 1.98 H (0.52-1.04) mg/dL Est GFR (CKD-EPI)AfAm 31 (>60 ml/min/1.73 sqM) Est GFR (CKD-EPI)NonAf 27 (>60 ml/min/1.73 sqM) Glucose 106 H (74-99) mg/dL Calcium 7.6 L (8.4-10.2) mg/dL Total Bilirubin 0.9 (0.2-1.3) mg/dL AST 51 H (14-36) U/L ALT 53 H (4-34) U/L Alkaline Phosphatase 116 (38-126) U/L Troponin I (0.000-0.034) ng/mL Total Protein 5.1 L (6.3-8.2) g/dL Albumin 2.3 L (3.5-5.0) g/dL Stool Occult Blood (Negative) Blood Type Blood Type Recheck Bld Type Recheck Status Antibody Screen Crossmatch Spec Expiration Date 04/17/20 04/17/20 04/17/20 Range/Units 12:19 12:34 13:14 WBC (3.8-10.6) k/uL RBC (3.80-5.40) m/uL Hgb (11.4-16.0) gm/dL Hct (34.0-46.0) % MCV (80.0-100.0) fL MCH (25.0-35.0) pg MCHC (31.0-37.0) g/dL RDW (11.5-15.5) % Plt Count (150-450) k/uL Neutrophils % % Lymphocytes % % Monocytes % % Eosinophils % % Basophils % % Neutrophils # (1.3-7.7) k/uL Lymphocytes # (1.0-4.8) k/uL Monocytes # (0-1.0) k/uL Eosinophils # (0-0.7) k/uL Basophils # (0-0.2) k/uL Manual Slide Review Hypochromasia Poikilocytosis Anisocytosis Macrocytosis PT (9.0-12.0) sec INR (<1.2) APTT (22.0-30.0) sec Sample Site ABG pH (7.35-7.45) ABG pCO2 (35-45) mmHg ABG pO2 (83-108) mmHg ABG HCO3 (21-25) mmol/L ABG Total CO2 (19-24) mmol/L ABG O2 Saturation (94-97) % ABG Base Excess mmol/L Daniel Test FiO2 % Sodium (137-145) mmol/L Potassium (3.5-5.1) mmol/L Chloride (98-107) mmol/L Carbon Dioxide (22-30) mmol/L Anion Gap mmol/L BUN (7-17) mg/dL Creatinine (0.52-1.04) mg/dL Est GFR (CKD-EPI)AfAm (>60 ml/min/1.73 sqM) Est GFR (CKD-EPI)NonAf (>60 ml/min/1.73 sqM) Glucose (74-99) mg/dL Calcium (8.4-10.2) mg/dL Total Bilirubin (0.2-1.3) mg/dL AST (14-36) U/L ALT (4-34) U/L Alkaline Phosphatase (38-126) U/L Troponin I 0.092 H* (0.000-0.034) ng/mL Total Protein (6.3-8.2) g/dL Albumin (3.5-5.0) g/dL Stool Occult Blood Negative (Negative) Blood Type O Positive Blood Type Recheck O Pos Bld Type Recheck Status No Antibody Screen NEGATIVE Crossmatch See Detail Spec Expiration Date 04/20/2020 - 231804/17/20 Range/Units 13:48 WBC (3.8-10.6) k/uL RBC (3.80-5.40) m/uL Hgb (11.4-16.0) gm/dL Hct (34.0-46.0) % MCV (80.0-100.0) fL MCH (25.0-35.0) pg MCHC (31.0-37.0) g/dL RDW (11.5-15.5) % Plt Count (150-450) k/uL Neutrophils % % Lymphocytes % % Monocytes % % Eosinophils % % Basophils % % Neutrophils # (1.3-7.7) k/uL Lymphocytes # (1.0-4.8) k/uL Monocytes # (0-1.0) k/uL Eosinophils # (0-0.7) k/uL Basophils # (0-0.2) k/uL Manual Slide Review Hypochromasia Poikilocytosis Anisocytosis Macrocytosis PT (9.0-12.0) sec INR (<1.2) APTT (22.0-30.0) sec Sample Site rt radial ABG pH 7.23 L (7.35-7.45) ABG pCO2 76 H* (35-45) mmHg ABG pO2 62 L (83-108) mmHg ABG HCO3 31 H (21-25) mmol/L ABG Total CO2 34 H (19-24) mmol/L ABG O2 Saturation 91.0 L (94-97) % ABG Base Excess 3.7 mmol/L Daniel Test Yes FiO2 40 % Sodium (137-145) mmol/L Potassium (3.5-5.1) mmol/L Chloride (98-107) mmol/L Carbon Dioxide (22-30) mmol/L Anion Gap mmol/L BUN (7-17) mg/dL Creatinine (0.52-1.04) mg/dL Est GFR (CKD-EPI)AfAm (>60 ml/min/1.73 sqM) Est GFR (CKD-EPI)NonAf (>60 ml/min/1.73 sqM) Glucose (74-99) mg/dL Calcium (8.4-10.2) mg/dL Total Bilirubin (0.2-1.3) mg/dL AST (14-36) U/L ALT (4-34) U/L Alkaline Phosphatase (38-126) U/L Troponin I (0.000-0.034) ng/mL Total Protein (6.3-8.2) g/dL Albumin (3.5-5.0) g/dL Stool Occult Blood (Negative) Blood Type Blood Type Recheck Bld Type Recheck Status Antibody Screen Crossmatch Spec Expiration Date Critical Care Time Critical Care Time: Yes Total Critical Care Time: 32 Disposition Clinical Impression: Anemia, Pulmonary edema Disposition: ADMITTED IP TO THIS [facility] Condition: Serious Is patient prescribed a controlled substance at d/c from ED?: No Referrals: Nonstaff,Physician [Primary Care Provider] - 1-2 days Decision Time: 14:10
[2020-04-17 12:41] LABS: Anisocytosis Slight; Basophils # (A) 0.1 k/uL (0-0.2); Basophils % (A) 1 %; Eosinophils # (A) 0.2 k/uL (0-0.7); Eosinophils % (A) 4 %; HCT 22.7 % (34.0-46.0); Hypochromasia Marked; Lymphocytes # (A) 0.5 k/uL (1.0-4.8); Lymphocytes % (A) 11 %; MCH 30.2 pg (25.0-35.0); MCHC 29.9 g/dL (31.0-37.0); MCV 101.2 fL (80.0-100.0); Macrocytosis Slight; Mean Platelet Volume 9.3; Monocytes # (A) 0.2 k/uL (0-1.0); Monocytes % (A) 4 %; Neutrophils # (A) 3.8 k/uL (1.3-7.7); Neutrophils % (A) 78 %; Poikilocytosis Slight; RBC 2.25 m/uL (3.80-5.40); RDW 16.3 % (11.5-15.5); WBC 4.9 k/uL (3.8-10.6)
[2020-04-17 12:52] LABS: Albumin 2.3 g/dL (3.5-5.0); Calcium 7.6 mg/dL (8.4-10.2); Potassium 3.2 mmol/L (3.5-5.1); Total Bilirubin 0.9 mg/dL (0.2-1.3); Total Protein 5.1 g/dL (6.3-8.2)
[2020-04-17 12:53] LABS: INR 1.2 (<1.2); Partial Thromboplastin Time 24.1 sec (22.0-30.0); Prothrombin Time 12.4 sec (9.0-12.0)
[2020-04-17 12:57] LABS: HGB 6.8 gm/dL (11.4-16.0)
[2020-04-17 13:22] LABS: Platelet Count 81 k/uL (150-450)
[2020-04-17] MEDS ORDERED: SODIUM CHLORIDE 0.9% 500 ML 500 ML IV ONE (13:24)
--- NOTE | 2020-04-17 13:43 | XR ---
EXAMINATION TYPE: XR chest 1V portable DATE OF EXAM: 04/17/2020 CLINICAL HISTORY: weak. TECHNIQUE: Portable frontal view of the chest. COMPARISON: 04/06/2020 chest radiograph FINDINGS: Right internal jugular central hemodialysis catheter redemonstrated. Low lung volumes. Ther e is diffusely increased patchy opacities of the bilateral lungs. Likely small bilateral pleural effu sions. No pneumothorax. IMPRESSION: Diffuse opacities of the bilateral lungs are significantly increased versus 04/06/2020 c omparison. Likely small bilateral pleural effusions. Findings may represent pulmonary edema or pneumo jh.
[2020-04-17 13:58] LABS: ABG Base Excess 3.7 mmol/L; ABG HCO3 31 mmol/L (21-25); ABG PH 7.23 (7.35-7.45); ABG PO2 62 mmHg (83-108); ABG TCO2 34 mmol/L (19-24); Allen Test Performed? Yes
[2020-04-17 14:00] LABS: ABG PCO2 76 mmHg (35-45)
[2020-04-17] MEDS ORDERED: NALOXONE 0.4 MG/ML 1 ML VIAL IV PRN (14:10)
--- NOTE | 2020-04-17 16:09 | CT ---
EXAMINATION TYPE: CT chest wo con DATE OF EXAM: 04/17/2020 COMPARISON: 03/11/2018 HISTORY: SOB CT DLP: 538.4 mGycm Automated exposure control for dose reduction was used. Images were obtained from the thoracic inlet to the diaphragm without contrast. There is extensive bilateral airspace consolidation. This is seen in the upper and lower lung galo. Heart appears slightly enlarged. There are some enlarged mediastinal lymph nodes that measure up to 1.5 cm. Bilateral bronchial adenopathy with lymph nodes up to 1.5 cm. There is there is no pleural effusion. There is no pericardial effusion. The bony thorax is intact. S ternum is intact. Upper abdominal soft tissues are intact. IMPRESSION: Extensive bilateral pulmonary infiltrates with mediastinal and bronchial adenopathy. Abnormalities ar e new compared to old exam. There is underlying mild pulmonary emphysema unchanged. This could relate to RDS.
--- NOTE | 2020-04-17 18:19 | P.HPIM ---
History of Present Illness H&P Date: 04/17/20 Chief Complaint: Low hemoglobin This is a 65-year-old female with a very complex past medical history noted below significant for end-stage renal disease on hemodialysis that was instructed by her dialysis center to come to the emergency room for anemia. She was found to have a hemoglobin of 6.8. She was sent to the ER for blood transfusion. In the ER, patient was found to be confused and her blood Showed evidence of acute hypercapnic respiratory failure. Patient was discharged from the hospital 4 days ago. She had a prolonged hospitalization and was started on dialysis during last hospitalization. She also have chronic back pain and has a chronic morphine pump that is managed by neurology. Patient was awake and alert when I saw her. She was on the BiPAP. I asked the nurse to remove the BiPAP but patient appeared confused. She was only oriented to herself. Her daughter at bedside told me that at home she was having normal conversation with her mother. She apparently has a hospital bed at home and is minimally functional. She is currently in the ICU for further management Review of Systems Review of system: 14 points review of systems were obtained and were negative except to what were mentioned in the HPI. Past Medical History Past Medical History: Heart Failure, CVA/TIA, Deep Vein Thrombosis (DVT), Hypertension, Osteoarthritis (OA), Syncope Additional Past Medical History / Comment(s): chronic back pain- has morphine pain pump implanted right abdomen., uses cane/walker prn., hx cva (pt did not know), syncope with hx of falls- states several concusions, fx spine 2018 MRI of the lumbar spine that was done in 2018 showed degenerative disc disease, facet arthropathy, spondylolisthesis, L1 endplate compression fracture without any significant spinal stenosis and the patient had a indwelling stimulator lead. , states swelling lower extremities., gastritis, having" burning in stomach, gas and change in stools", usually eat once daily. , states she broke 4 toes last week. History of Any Multi-Drug Resistant Organisms: None Reported Past Surgical History: Back Surgery Additional Past Surgical History / Comment(s): laproscopic surgery (for miscarriage), back injections Past Anesthesia/Blood Transfusion Reactions: No Reported Reaction Smoking Status: Former smoker - Past Family History Father Family Medical History: Cancer, Diabetes Mellitus Mother Family Medical History: Cancer Brother(s) Family Medical History: Cancer Additional Family Medical History / Comment(s): agent orange Medications and Allergies Home Medications Medication Instructions Recorded Confirmed Type Ergocalciferol (Vitamin D2) 50,000 unit PO STEVENSON 09/02/18 04/17/20 History [Drisdol] Cyanocobalamin (Vitamin B-12) 1,000 mcg PO DAILY 05/27/19 04/17/20 History [Vitamin B-12] Morphine/Bupivacaine Pump 1 dose INTRATHECA CONTINUOUS 05/27/19 04/17/20 History rOPINIRole HCL [Requip] 1 mg PO HS 03/28/20 04/17/20 History ALPRAZolam [Xanax] 0.25 mg PO BID PRN #6 tab 04/08/20 04/17/20 Rx Citalopram Hydrobromide [CeleXA] 10 mg PO DAILY tab 04/08/20 04/17/20 Rx Hydrophilic Cream [Triad Cream] 1 applic TOPICAL DAILY applic 04/08/20 04/17/20 Rx Ipratropium-Albuterol Nebulize 3 ml INHALATION RT-QID ml 04/08/20 04/17/20 Rx [Duoneb 0.5 mg-3 mg/3 ml Soln] Nicotine 21Mg/24Hr Patch [Habitrol] 1 patch TRANSDERM DAILY patch 04/08/20 04/17/20 Rx Pantoprazole [Protonix] 40 mg PO DAILY tablet.dr 04/08/20 04/17/20 Rx Apixaban [Eliquis] 2.5 mg PO BID #60 tablet 04/13/20 04/17/20 Rx Fluconazole [Diflucan] 100 mg PO DAILY #5 tablet 04/13/20 04/17/20 Rx Gabapentin [Neurontin] 100 mg PO HS #14 cap 04/13/20 04/17/20 Rx Cephalexin [Keflex] 500 mg PO Q6H 04/17/20 04/17/20 History Fluconazole [Diflucan] 100 mg PO DAILY 04/17/20 04/17/20 History carvediloL [Coreg] 3.125 mg PO AC-BID 04/17/20 04/17/20 History Allergies Allergy/AdvReac Type Severity Reaction Status Date / Time Sulfa (Sulfonamide Allergy Severe Rash/Hives, Verified 04/17/20 16:23 Antibiotics) N & V, IRREGULAR HEART BEAT. aspirin Allergy IRREGULAR Verified 04/17/20 16:23 HEART BEAT, N & V, HIVES Penicillins Allergy Unknown Verified 04/17/20 16:23 Milk Containing Products AdvReac Diarrhea Verified 04/17/20 16:23 [Dairy] Physical Exam Vitals: Vital Signs Temp Pulse Resp BP Pulse Ox 04/17/20 17:00 64 12 84/53 95 04/17/20 16:15 97.8 F 66 12 87/57 04/17/20 16:10 98.1 F 68 20 106/58 95 04/17/20 14:53 98.1 F 64 20 100/58 04/17/20 14:23 98.2 F 64 20 95/51 04/17/20 14:10 97.8 F 66 20 94/52 90 L 04/17/20 13:20 67 20 86/51 95 04/17/20 12:10 20 04/17/20 12:05 97.4 F L 83 18 103/61 65 L Intake and Output 04/17/20 04/17/20 04/17/20 06:59 14:59 22:59 Intake Total 0 460 Output Total 0 Balance 0 460 Intake: IV 50 Sodium Chloride 0.9% 1, 50 000 ml @ 50 mls/hr IV . Q20H STA Rx#:[id number] Blood Product 0 310 Rc Pheresis 2 As3 Unit 0 310 [id number] Other 100 Rc Pheresis 2 As3 Unit 100 [id number] Output: Urine 0 Other: Weight 84.822 kg 84.822 kg General: The patient is awake and alert, in no distress. She appears chronically ill. Eye: there is normal conjunctiva bilaterally. Neck: The neck is supple, there is no JVD. Cardiovascular: Normal S1-S2, no S3-S4, no murmurs. Respiratory: Lungs clear to auscultation bilaterally Gastrointestinal: Abdomen is soft, nontender Musculoskeletal: There is +1 pedal edema. Neurological:. Speech is normal. Skin: Skin is warm and dry Results CBC & Chem 7: 04/17/20 12:19 04/17/20 12:19 Labs: Abnormal Lab Results - Last 24 Hours (Table) 04/17/20 04/17/20 04/17/20 Range/Units 12:19 12:19 12:19 RBC 2.25 L (3.80-5.40) m/uL Hgb 6.8 L* (11.4-16.0) gm/dL Hct 22.7 L (34.0-46.0) % MCV 101.2 H (80.0-100.0) fL MCHC 29.9 L (31.0-37.0) g/dL RDW 16.3 H (11.5-15.5) % Plt Count 81 L (150-450) k/uL Lymphocytes # 0.5 L (1.0-4.8) k/uL PT 12.4 H (9.0-12.0) sec INR 1.2 H (<1.2) ABG pH (7.35-7.45) ABG pCO2 (35-45) mmHg ABG pO2 (83-108) mmHg ABG HCO3 (21-25) mmol/L ABG Total CO2 (19-24) mmol/L ABG O2 Saturation (94-97) % Sodium 132 L (137-145) mmol/L Potassium 3.2 L (3.5-5.1) mmol/L Chloride 95 L (98-107) mmol/L Carbon Dioxide 32 H (22-30) mmol/L BUN 33 H (7-17) mg/dL Creatinine 1.98 H (0.52-1.04) mg/dL Glucose 106 H (74-99) mg/dL Calcium 7.6 L (8.4-10.2) mg/dL Magnesium (1.6-2.3) mg/dL AST 51 H (14-36) U/L ALT 53 H (4-34) U/L Troponin I (0.000-0.034) ng/mL Total Protein 5.1 L (6.3-8.2) g/dL Albumin 2.3 L (3.5-5.0) g/dL Crossmatch 04/17/20 04/17/20 04/17/20 Range/Units 12:19 12:19 12:34 RBC (3.80-5.40) m/uL Hgb (11.4-16.0) gm/dL Hct (34.0-46.0) % MCV (80.0-100.0) fL MCHC (31.0-37.0) g/dL RDW (11.5-15.5) % Plt Count (150-450) k/uL Lymphocytes # (1.0-4.8) k/uL PT (9.0-12.0) sec INR (<1.2) ABG pH (7.35-7.45) ABG pCO2 (35-45) mmHg ABG pO2 (83-108) mmHg ABG HCO3 (21-25) mmol/L ABG Total CO2 (19-24) mmol/L ABG O2 Saturation (94-97) % Sodium (137-145) mmol/L Potassium (3.5-5.1) mmol/L Chloride (98-107) mmol/L Carbon Dioxide (22-30) mmol/L BUN (7-17) mg/dL Creatinine (0.52-1.04) mg/dL Glucose (74-99) mg/dL Calcium (8.4-10.2) mg/dL Magnesium 1.5 L (1.6-2.3) mg/dL AST (14-36) U/L ALT (4-34) U/L Troponin I 0.092 H* (0.000-0.034) ng/mL Total Protein (6.3-8.2) g/dL Albumin (3.5-5.0) g/dL Crossmatch See Detail 04/17/20 04/17/20 Range/Units 13:48 16:52 RBC (3.80-5.40) m/uL Hgb (11.4-16.0) gm/dL Hct (34.0-46.0) % MCV (80.0-100.0) fL MCHC (31.0-37.0) g/dL RDW (11.5-15.5) % Plt Count (150-450) k/uL Lymphocytes # (1.0-4.8) k/uL PT (9.0-12.0) sec INR (<1.2) ABG pH 7.23 L (7.35-7.45) ABG pCO2 76 H* (35-45) mmHg ABG pO2 62 L (83-108) mmHg ABG HCO3 31 H (21-25) mmol/L ABG Total CO2 34 H (19-24) mmol/L ABG O2 Saturation 91.0 L (94-97) % Sodium (137-145) mmol/L Potassium (3.5-5.1) mmol/L Chloride (98-107) mmol/L Carbon Dioxide (22-30) mmol/L BUN (7-17) mg/dL Creatinine (0.52-1.04) mg/dL Glucose (74-99) mg/dL Calcium (8.4-10.2) mg/dL Magnesium (1.6-2.3) mg/dL AST (14-36) U/L ALT (4-34) U/L Troponin I 0.100 H* (0.000-0.034) ng/mL Total Protein (6.3-8.2) g/dL Albumin (3.5-5.0) g/dL Crossmatch Assessment and Plan Assessment: 1. Acute on chronic anemia. Anemia of chronic disease. 1 unit of PRBC ordered. We will continue to monitor closely. No evidence of GI bleed. Hemoccult negative. 2. End-stage renal disease on hemodialysis, recently started during last admission. Nephrology consulted. Patient will receive first dialysis treatment today. 3. Acute hypercapnic respiratory failure, started on BiPAP. I would obtain repeat ABG. May be attributed to opiates use an underlying COPD. Her morphine dose was decreased during last admission. May require further dose reduction. 4. Acute toxo metabolic encephalopathy, secondary to #3 and possibly morphine use along with Xanax. Discontinue Xanax. 5. Troponin elevation, most likely non-thrombotic troponin leak secondary to underlying anemia and CKD. Twelve-lead EKG in the ER with no acute ischemic changes. Patient denies any chest pain. 6. Right upper extremity DVT, diagnosed during last admission. On anticoagulation with Eliquis 7. Underlying COPD, continue duo nebs every 6 hours 8. Chronic hypoxic respiratory failure on home O2 9. Chronic back pain/chronic L1 compression fracture status post intrathecal morphine pump: Surgical wound jonathan will be removed today. Morphine dose was reduced during last admission 5 mg per day. May consider further reduction in the dose if patient is comfortable 10. CODE STATUS: Patient is full code. Discussed with her daughter at bedside 11. GI prophylaxis with IV Protonix. DVT prophylaxis with Eliquis The patient is admitted with an anticipated greater than 2 midnight stay for evaluation of the medical problems noted above Discussed with: Patient and nursing staff Anticipated discharge date: To be determined based on clinical course Anticipated discharge place: home A total of 45 minutes was spent on the care of this complex patient more than 50% of the time was spent in counseling and care coordination.
[2020-04-17 18:40] LABS: ABG Base Excess 2.4 mmol/L; ABG HCO3 30 mmol/L (21-25); ABG Oxygen Saturation 92.8 % (94-97); ABG PH 7.21 (7.35-7.45); ABG PO2 66 mmHg (83-108); ABG TCO2 33 mmol/L (19-24); Allen Test Performed? Yes
[2020-04-17 18:45] LABS: ABG PCO2 75 mmHg (35-45)
[2020-04-17] MEDS: IPRATROPIUM-ALBUTEROL 3 ML NEB INHALATION SCH (19:38)
[2020-04-17] MEDS: MAGNESIUM SULFATE-D5W PMX 1 GM in DEXTROSE/WATER 1 100ML.BAG IVPB SCH ×2 (20:38→21:50)
[2020-04-17] MEDS: MORPHINE MISCELLANE SCH (22:15)
[2020-04-17] MEDS: BUPIVACAINE MISCELLANE SCH (22:15)
[2020-04-17] MEDS: GABAPENTIN 100 MG CAP PO SCH (22:16)
[2020-04-17] MEDS: APIXABAN 2.5 MG TABLET PO SCH (22:16)
[2020-04-17] MEDS ORDERED: traMADol 50 MG TAB PO STA (23:47)
[2020-04-18 01:10] LABS: Calcium 7.7 mg/dL (8.4-10.2); Potassium 3.8 mmol/L (3.5-5.1)
[2020-04-18] MEDS ORDERED: POTASSIUM CHLORIDE 20 MEQ in WATER FOR INJECTION 1 100ML.BAG IVPB STA (01:14)
[2020-04-18 04:07] LABS: Anisocytosis Slight; HCT 28.3 % (34.0-46.0); HGB 8.2 gm/dL (11.4-16.0); Hypochromasia Marked; MCH 29.4 pg (25.0-35.0); MCV 101.6 fL (80.0-100.0); Macrocytosis Slight; Mean Platelet Volume 9.8; Platelet Count 80 k/uL (150-450); Poikilocytosis Moderate; RBC 2.78 m/uL (3.80-5.40); RDW 16.2 % (11.5-15.5); WBC 7.5 k/uL (3.8-10.6)
[2020-04-18 04:16] LABS: Albumin 2.6 g/dL (3.5-5.0); Calcium 7.8 mg/dL (8.4-10.2); Magnesium 2.2 mg/dL (1.6-2.3); Potassium 3.9 mmol/L (3.5-5.1); Total Protein 5.6 g/dL (6.3-8.2)
[2020-04-18 05:06] LABS: Band Neutrophils % 2 %; Eosinophils # (M) 0.23 k/uL (0-0.7); Lymphocytes # (M) 0.75 k/uL (1.0-4.8); Metamyelocytes # (M) 0.08 k/uL (0); Metamyelocytes % 1 %; Neutrophils % (M) 82 %; Nucleated Red Blood Cells 0 /100 WBC (0-0); Total Cells Counted 200
[2020-04-18 05:08] LABS: Basophilic Stippling Present; Polychromasia Present
--- NOTE | 2020-04-18 06:52 | XR ---
EXAMINATION TYPE: XR chest 1V DATE OF EXAM: 04/18/2020 CLINICAL HISTORY: Difficulty breathing progress study. TECHNIQUE: Single AP portable upright view of the chest is obtained. COMPARISON: Chest x-ray and CT chest from one day earlier and older studies. FINDINGS: Stable right internal jugular dialysis catheter. Cardiac silhouette size stable and upper limits of normal with right-sided tracheal deviation redemonstrated. Increased opacity bilaterally sh ows interval improvement from x-ray one day earlier. Background chronic reticular interstitial change s bilaterally greatest with relative sparing of the right lung base redemonstrated. Osseous structure s intact. IMPRESSION: Improving but persistent bilateral edema and/or infiltrates on background chronic parench ymal changes from one day earlier.
[2020-04-18] MEDS: IPRATROPIUM-ALBUTEROL 3 ML NEB INHALATION SCH ×4 (07:24→20:55)
[2020-04-18] MEDS: PANTOPRAZOLE 40 MG/10 ML VIAL IV SCH (08:16)
--- NOTE | 2020-04-18 10:10 | CONS ---
CONSULTATION This is a 64-year-old lady with a chronic pain syndrome who has been receiving some pain medications through a pain pump and about 3 weeks ago she was hospitalized with multiple issues, went into renal failure and then has been placed on dialysis. She was discharged home and comes back in this time with complaints of increasing shortness of breath. Apparently, she missed a day of dialysis. She came into the ER with anemia and also had dialysis 2 days ago. Was called to tell her that hemoglobin was low. She received blood transfusion, became fatigue, shortness of breath and then went into a respiratory failure with volume overload picture. She has been placed on a BiPAP and is breathing better. She has also received dialysis yesterday. At the time of my evaluation, this lady is lethargic but responds to questions briefly. She does not seem to have any pain at this time. PAST MEDICAL HISTORY: Remarkable for a history of CVA, TIA, hypertension, osteoarthritis, syncope type picture in the past. She also has a lot of cervical spine disease and has had a pain pump and a pain stimulator in the past. She also had a lot of back pain problems. She has underlying history of a bipolar disorder and depression as well. Apparently on March 28, she was admitted through the emergency room with symptoms of chronic pain with a change in the pump and she was febrile and there was a question of sepsis at that time and a troponin elevation. This consult is mainly for a troponin elevation and possible CHF type picture. She seems to have some volume-overload type picture with a BNP of about 8500. Troponin is 0.1 and this may represent an oxygen mismatch rather than primary myocardial injury. Her creatinine is elevated. She is on dialysis. PHYSICAL EXAMINATION: On examination, blood pressure is 108/60, pulse rate is 68 per minute. Fundus was not examined by me. NECK: Supple. There is JVD of 1 cm. No carotid bruit. Heart exam reveals S1, S2 with a short systolic murmur. Lungs reveal diminished air entry. Abdomen is soft, nontender. Lower extremities reveal bilateral mild edema. Central nervous system limited exam was performed grossly. Patient moves all 4 extremities. EKG revealed sinus mechanism with nonspecific ST changes. IMPRESSION: 1. Hypoxia secondary to respiratory insufficiency with multiple causes including chronic obstructive pulmonary disease, past history of smoking and also probable sleep apnea. 2. Elevated troponin, not suggestive of primary myocardial injury, could be related to oxygen mismatch. 3. Anemia secondary to chronic disease and renal failure. 4. Volume overload picture secondary to missed dialysis. RECOMMENDATIONS: From a cardiac standpoint I have no specific new recommendations. I would suggest that we continue the dialysis as planned and this will help the volume overload picture. No further aggressive intervention for her troponin elevation. Echo from March 29 revealed preserved systolic function without significant abnormalities on the Doppler exam. Thank you very much for the consultation. MMMARIANA / IJN: [id number] /
--- NOTE | 2020-04-18 11:17 | CONS ---
CONSULTATION PULMONARY/CRITICAL CARE CONSULTATION DATE OF SERVICE: April 18, 2020. REASON FOR CONSULTATION: ICU management. HISTORY: This is a 64-year-old female who presented to the emergency room on April 17 at 11:59. Apparently, she was sent in because it was noted that in dialysis clinic, her hemoglobin was low at 6.8. The patient had dialysis 2 days prior to her admission to the emergency department. Because of the low hemoglobin, she was sent to the emergency room to be evaluated. She was recently inpatient with an episode of sepsis. The patient has been very lethargic and sleepy. She recently had a pain pump interchange. She apparently has not been having any blood in her urine. No bloody stools or melanotic stools. Not coughing or vomiting up any blood. The patient just was very profoundly weak. Anyway, for that reason, she was admitted to the hospital. It was also noted that the chest x-ray did show pulmonary edema. She had a blood gas which showed an acute on chronic hypoxic and hypercapnic respiratory failure. Her pCO2 was about 20 mmHg higher than what it should be. For that reason, she was actually admitted to the ICU, more so than for the anemia. HOME MEDICATIONS: Reviewed. She is currently on vitamin D2, vitamin B12 a morphine pump, and Requip. She is also on Xanax, Celexa, hydrophilic cream, DuoNeb, nicotine patch, Protonix, Coreg, Eliquis, Diflucan, Neurontin. ALLERGIES: Include sulfa, aspirin, penicillin, and milk-containing products. MEDICAL HISTORY: CHF, CVA, hypertension, DJD, syncope, chronic back pain hence the morphine pump, fractured spine, degenerative disk disease, facet arthropathy, spondylolisthesis, gastritis, fractured toes. SURGICAL HISTORY: Includes laparoscopic surgery for miscarriage, back surgery, and back injections. SOCIAL HISTORY: Positive for ongoing daily tobacco use. No alcohol use or illicit drug use. FAMILY HISTORY: Positive for father with cancer and diabetes and a mother with cancer and a brother with cancer related to [employer] [place] exposure. REVIEW OF SYSTEMS: CONSTITUTIONAL: Weakness. NEUROLOGIC: Negative. HEENT: Negative. CARDIOVASCULAR: Negative. PULMONARY: Shortness of breath. GI: Negative. : Negative. RHEUMATOLOGIC: Negative. IMMUNOLOGIC: Negative. ENDOCRINOLOGIC: Negative. DERMATOLOGIC: Negative. PHYSICAL EXAMINATION: VITAL SIGNS: Current vital signs are reviewed. Temperature 96.3, heart rate 58, respiratory rate 12, blood pressure 106/57 mean 73, saturations on BiPAP 94%. She is currently on BiPAP at 12/5 and 50%. HEENT: Examination is grossly unremarkable. BiPAP mask in place. NECK: Supple. Full range of motion. CARDIOVASCULAR: Examination reveals distant heart sounds. Heart rate 60. S1, S2 normal. LUNGS: Reveal some diffuse bibasilar crackles. No wheezes or rhonchi. ABDOMEN: Soft. No bowel sounds. EXTREMITIES are intact. Minimal edema. SKIN: Without rash. NEUROLOGIC: Examination is difficult to assess. She is very lethargic and somnolent. This may relate to the pain pump. LABS/DIAGNOSTICS: Reviewed. White count 7.5, hemoglobin 8.2, hematocrit 28.3, platelet count 80,000. Blood gases on admission show a pO2 of 66, a pCO2 of 75, and a pH of 7.21. That was on 50%. Her pCO2 normally should be right around 55 mmHg, so it is about 20 mmHg higher. That accounts for the abnormal pH. Sodium 133, potassium 3.9, chloride 98, CO2 of 33, anion gap is 2, BUN and creatinine were 17 and 1.22, glucose 113, AST 53, ALT 65. Troponins were 0.1 and 0.102. Albumin 2.6. Stools for occult blood were negative. Microbiologic studies are negative. Chest x-ray shows improved but persistent bilateral pulmonary edema. Her x-ray on admission on the shows diffuse bilateral opacities consistent with fluid overload. There are small bilateral effusions. Chest CT, again, it is consistent with diffuse changes. N-terminal proBNP was 8540. MEDICATIONS: Reviewed. Currently, she is on Eliquis, Celexa, Diflucan, gabapentin, updrafts, morphine pump, Narcan Protonix, and Requip. ASSESSMENT: 1. Acute on chronic hypoxemic and hypercapnic respiratory failure, likely multifactorial, and probably related to fluid overload as well as excess narcotic from the patient's pain pump. 2. Rule out underlying COPD from chronic tobacco use. 3. Chronic back pain, status post pain pump insertion. 4. History of congestive heart failure. 5. History of cerebrovascular accident. 6. Essential hypertension. 7. Degenerative joint disease. 8. History of syncope. 9. Multiple other medical problems and comorbidities, many of which are related to her chronic back pain and chronic degenerative changes of the spine. PLAN: Currently, the patient is on BiPAP. We will see if she can tolerate nasal prongs. Her hemoglobin today is 8.2. She did receive 1 unit of blood. Her COVID testing is pending. I do not believe that is the issue. We will ask Anesthesia to see if they can deactivate the pain pump. Additional recommendations and suggestions are forthcoming. She is just very lethargic and sleepy. Chest x-ray is improved. MMODL / IJN: [id number] /
[2020-04-18] MEDS: APIXABAN 2.5 MG TABLET PO SCH ×2 (11:40→21:15)
[2020-04-18] MEDS: CITALOPRAM HYDROBROMIDE 10 MG TAB PO SCH (11:40)
[2020-04-18] MEDS: FLUCONAZOLE 100 MG TAB PO SCH (11:40)
--- NOTE | 2020-04-18 12:35 | CONS ---
CONSULTATION REASON FOR CONSULT: Hemodialysis dependent renal failure. HISTORY OF PRESENT ILLNESS: The patient is a 64-year-old female who was admitted to the hospital with mental status changes, increased weakness and some shortness of breath. She was started on hemodialysis on her last admission for acute kidney injury, mostly acute tubular necrosis and cardiorenal. She has had volume overload issues as well. The patient was discharged on morphine pump and this has currently been discontinued. The patient was also significantly anemic with hemoglobin of about 6.8 g/dL. She was dialyzed yesterday and she is currently off BiPAP. Chest x-ray did show evidence of volume overload. Currently, patient does not have significant urine output and she remains hemodialysis dependent. Patient was started on morphine pump during her last hospitalization by Neurology for severe back pain. Blood cultures did not grow any bacteria during her last admission. PAST MEDICAL HISTORY: Chronic back pain, recent acute kidney injury mostly from sepsis, hypotension requiring initiation of renal replacement therapy, currently remains hemodialysis dependent. Patient has significant spinal stenosis, gastritis, DVTs, CVA, CHF, hypertension, syncope, osteoarthritis. PAST SURGICAL HISTORY: Laparoscopic surgery, spinal injections. SOCIAL HISTORY: Patient is a former smoker. No history of drug abuse alcohol abuse. MEDICATIONS: Medications prior to admission included Drisdol, vitamin B12, Requip, Xanax, Protonix, Eliquis, Diflucan, Keflex, Neurontin, Coreg. ALLERGIES: INCLUDE SULFA, ASPIRIN, PENICILLIN, DAIRY PRODUCTS. REVIEW OF SYSTEMS: As per HPI. Other systems negative. No active bleeding noted. PHYSICAL EXAMINATION: Patient is comfortable, awake. She is confused. She is not in any acute distress. Blood pressure is 106/57, heart rate 57 per minute. She is afebrile. Examination of the heart S1, S2. Examination of the lungs, bilateral breath sounds are heard. Abdomen is soft, nontender. Examination lower extremities shows edema 2+ bilaterally BABYSITTER exam grossly intact. LABS: Show hemoglobin 8.2 sodium 133, potassium 3.9, CO2 is 33, BUN 17, creatinine 1.2. ASSESSMENT: 1. Acute kidney injury, hemodialysis dependent currently oliguric and maintained on TTS schedule as outpatient. However patient is volume overloaded. We will plan for dialysis for about 2.5 hours tomorrow mostly for volume overload. 2. Volume overload, somewhat improved. The patient will be dialyzed again tomorrow. 3. Mental status changes associated with narcotics. Morphine pump will be discontinued. 4. Anemia, no active bleeding noted. Hemoglobin was 6.8 on initial admission. Patient has received one unit packed RBCs. PLAN: Hemodialysis in a.m. the and agree with discontinuation of morphine pump. Thank you for this consultation. We will continue to follow the patient with you during her hospitalization. RAÍMREZ / BISHNU: [id number] /
--- NOTE | 2020-04-18 13:38 | P.PN ---
Subjective Progress Note Date: 04/18/20 Patient is awake this morning. She appeared confused and was unable to answer any of my questions appropriately. Objective - Vital Signs Vital signs: Vital Signs Temp 96.9 F L 04/18/20 12:00 Pulse 59 L 04/18/20 12:00 Resp 18 04/18/20 12:00 BP 85/49 04/18/20 12:00 Pulse Ox 89 L 04/18/20 12:00 Intake & Output 04/17/20 04/18/20 04/18/20 18:59 06:59 18:59 Intake Total 460 380 20 Output Total 0 3300 0 Balance 460 -2920 20 Weight 84.822 kg 101.8 kg Intake: IV 50 80 20 NS 80 20 Sodium Chloride 0.9% 1, 50 000 ml @ 50 mls/hr IV . Q20H STA Rx#:[id number] Blood Product 310 Rc Pheresis 2 As3 Unit 310 [id number] Hemodialysis 300 Other 100 Rc Pheresis 2 As3 Unit 100 [id number] Output: Urine 0 0 Hemodialysis 3300 Other: Voiding Method Bedpan Bedpan - Exam General: The patient is awake and alert, in no distress Eye: there is normal conjunctiva bilaterally. Neck: The neck is supple, there is no JVD. Cardiovascular: Normal S1-S2, no S3-S4, no murmurs. Respiratory: Lungs clear to auscultation bilaterally Gastrointestinal: Abdomen is soft, nontender Musculoskeletal: There is +1-2 pedal edema. Neurological:. Speech is normal. Skin: Skin is warm and dry - Labs CBC & Chem 7: 04/18/20 03:27 04/18/20 03:27 Labs: Abnormal Lab Results - Last 24 Hours (Table) 04/17/20 04/17/20 04/17/20 Range/Units 12:19 12:19 12:19 RBC (3.80-5.40) m/uL Hgb 6.8 L* (11.4-16.0) gm/dL Hct (34.0-46.0) % MCV (80.0-100.0) fL MCHC (31.0-37.0) g/dL RDW (11.5-15.5) % Plt Count (150-450) k/uL Lymphocytes # (Manual) (1.0-4.8) k/uL Metamyelocytes # (Man) (0) k/uL ABG pH (7.35-7.45) ABG pCO2 (35-45) mmHg ABG pO2 (83-108) mmHg ABG HCO3 (21-25) mmol/L ABG Total CO2 (19-24) mmol/L ABG O2 Saturation (94-97) % Sodium (137-145) mmol/L Carbon Dioxide (22-30) mmol/L BUN (7-17) mg/dL Creatinine (0.52-1.04) mg/dL Glucose (74-99) mg/dL Calcium (8.4-10.2) mg/dL Magnesium 1.5 L (1.6-2.3) mg/dL AST (14-36) U/L ALT (4-34) U/L Alkaline Phosphatase (38-126) U/L Troponin I 0.092 H* (0.000-0.034) ng/mL Total Protein (6.3-8.2) g/dL Albumin (3.5-5.0) g/dL Crossmatch 04/17/20 04/17/20 04/17/20 Range/Units 12:34 13:48 16:52 RBC (3.80-5.40) m/uL Hgb (11.4-16.0) gm/dL Hct (34.0-46.0) % MCV (80.0-100.0) fL MCHC (31.0-37.0) g/dL RDW (11.5-15.5) % Plt Count (150-450) k/uL Lymphocytes # (Manual) (1.0-4.8) k/uL Metamyelocytes # (Man) (0) k/uL ABG pH 7.23 L (7.35-7.45) ABG pCO2 76 H* (35-45) mmHg ABG pO2 62 L (83-108) mmHg ABG HCO3 31 H (21-25) mmol/L ABG Total CO2 34 H (19-24) mmol/L ABG O2 Saturation 91.0 L (94-97) % Sodium (137-145) mmol/L Carbon Dioxide (22-30) mmol/L BUN (7-17) mg/dL Creatinine (0.52-1.04) mg/dL Glucose (74-99) mg/dL Calcium (8.4-10.2) mg/dL Magnesium (1.6-2.3) mg/dL AST (14-36) U/L ALT (4-34) U/L Alkaline Phosphatase (38-126) U/L Troponin I 0.100 H* (0.000-0.034) ng/mL Total Protein (6.3-8.2) g/dL Albumin (3.5-5.0) g/dL Crossmatch See Detail 04/17/20 04/17/20 04/18/20 Range/Units 18:18 19:57 00:54 RBC (3.80-5.40) m/uL Hgb (11.4-16.0) gm/dL Hct (34.0-46.0) % MCV (80.0-100.0) fL MCHC (31.0-37.0) g/dL RDW (11.5-15.5) % Plt Count (150-450) k/uL Lymphocytes # (Manual) (1.0-4.8) k/uL Metamyelocytes # (Man) (0) k/uL ABG pH 7.21 L (7.35-7.45) ABG pCO2 75 H* (35-45) mmHg ABG pO2 66 L (83-108) mmHg ABG HCO3 30 H (21-25) mmol/L ABG Total CO2 33 H (19-24) mmol/L ABG O2 Saturation 92.8 L (94-97) % Sodium 132 L (137-145) mmol/L Carbon Dioxide (22-30) mmol/L BUN 18 H (7-17) mg/dL Creatinine 1.13 H (0.52-1.04) mg/dL Glucose 106 H (74-99) mg/dL Calcium 7.7 L (8.4-10.2) mg/dL Magnesium (1.6-2.3) mg/dL AST (14-36) U/L ALT (4-34) U/L Alkaline Phosphatase (38-126) U/L Troponin I 0.102 H* (0.000-0.034) ng/mL Total Protein (6.3-8.2) g/dL Albumin (3.5-5.0) g/dL Crossmatch 04/18/20 04/18/20 Range/Units 03:27 03:27 RBC 2.78 L (3.80-5.40) m/uL Hgb 8.2 L (11.4-16.0) gm/dL Hct 28.3 L (34.0-46.0) % MCV 101.6 H (80.0-100.0) fL MCHC 29.0 L (31.0-37.0) g/dL RDW 16.2 H (11.5-15.5) % Plt Count 80 L (150-450) k/uL Lymphocytes # (Manual) 0.75 L (1.0-4.8) k/uL Metamyelocytes # (Man) 0.08 H (0) k/uL ABG pH (7.35-7.45) ABG pCO2 (35-45) mmHg ABG pO2 (83-108) mmHg ABG HCO3 (21-25) mmol/L ABG Total CO2 (19-24) mmol/L ABG O2 Saturation (94-97) % Sodium 133 L (137-145) mmol/L Carbon Dioxide 33 H (22-30) mmol/L BUN (7-17) mg/dL Creatinine 1.22 H (0.52-1.04) mg/dL Glucose 113 H (74-99) mg/dL Calcium 7.8 L (8.4-10.2) mg/dL Magnesium (1.6-2.3) mg/dL AST 53 H (14-36) U/L ALT 65 H (4-34) U/L Alkaline Phosphatase 140 H (38-126) U/L Troponin I (0.000-0.034) ng/mL Total Protein 5.6 L (6.3-8.2) g/dL Albumin 2.6 L (3.5-5.0) g/dL Crossmatch Assessment and Plan Assessment: This is a 64-year-old female with complex past medical history noted below who was sent to the ER from her dialysis center with abnormal lab work and a hemoglobin of 6.8. Patient was evaluated in the ER and admitted to the hospital for further management of her medical problems noted below. 1. Acute on chronic anemia. Anemia of chronic disease. Status post 1 unit of PRBC on presentation. We will continue to monitor closely. No evidence of GI bleed. Hemoccult negative. 2. End-stage renal disease on hemodialysis, recently started during last admission. Nephrology consulted. Continue dialysis as directed by nephrology 3. Acute hypercapnic respiratory failure, started on BiPAP. Repeat blood gas did not show significant improvement and CO2 level. May be attributed to opiates use an underlying COPD. BiPAP discontinued by ICU team. Her morphine dose was decreased during last admission. Anesthesia will be consulted to turn off the pump 4. Acute toxo metabolic encephalopathy, secondary to #3 and possibly morphine use along with Xanax. Discontinue Xanax. 5. Troponin elevation, most likely non-thrombotic troponin leak secondary to underlying anemia and CKD. Twelve-lead EKG in the ER with no acute ischemic changes. Patient denies any chest pain. Cardiology consulted and no further recommendations at this time 6. Right upper extremity DVT, diagnosed during last admission. On anticoa gulation with Eliquis 7. Underlying COPD, continue duo nebs every 6 hours 8. Chronic hypoxic respiratory failure on home O2 9. Chronic back pain/chronic L1 compression fracture status post intrathecal morphine pump: Surgical wound jonathan will be removed today. Morphine dose was reduced during last admission 5 mg per day. We will need to turn off the pump 10. CODE STATUS: Patient is full code. Discussed with her daughter at bedside 11. GI prophylaxis with IV Protonix. DVT prophylaxis with Eliquis
[2020-04-18] MEDS: BUPIVACAINE MISCELLANE SCH (14:32)
[2020-04-18] MEDS: MORPHINE MISCELLANE SCH (14:32)
[2020-04-18 16:50] LABS: Glucose,Whole Blood 94 mg/dL (75-99)
[2020-04-18 20:09] LABS: Glucose,Whole Blood 83 mg/dL (75-99)
[2020-04-18] MEDS: GABAPENTIN 100 MG CAP PO SCH (21:15)
[2020-04-19 06:33] LABS: Glucose,Whole Blood 85 mg/dL (75-99)
[2020-04-19 09:22] LABS: Potassium 4.3 mmol/L (3.5-5.1)
[2020-04-19] MEDS: PANTOPRAZOLE 40 MG/10 ML VIAL IV SCH (09:25)
[2020-04-19] MEDS: CITALOPRAM HYDROBROMIDE 10 MG TAB PO SCH (09:25)
[2020-04-19] MEDS: APIXABAN 2.5 MG TABLET PO SCH ×2 (09:26→20:05)
[2020-04-19] MEDS: FLUCONAZOLE 100 MG TAB PO SCH (09:26)
[2020-04-19] MEDS: IPRATROPIUM-ALBUTEROL 3 ML NEB INHALATION SCH ×4 (11:04→20:38)
--- NOTE | 2020-04-19 12:30 | P.PN ---
Subjective Progress Note Date: 04/19/20 Patient remained confused today. She is awake and alert. She is in no acute distress. She is only answering simple yes or no questions. She is having difficulty swallowing her medications with sips of water. Objective - Vital Signs Vital signs: Vital Signs Temp 97.4 F L 04/19/20 08:00 Pulse 70 04/19/20 11:33 Resp 12 04/19/20 11:33 BP 101/56 04/19/20 11:31 Pulse Ox 98 04/19/20 11:31 Intake & Output 04/18/20 04/19/20 04/19/20 18:59 06:59 18:59 Intake Total 20 200 0 Output Total 0 Balance 20 200 0 Weight 86.5 kg Intake: IV 20 0 NS 20 0 Oral 200 Output: Urine 0 Other: Voiding Method Bedpan Bedpan Bedpan Diaper Diaper # Voids 0 - Exam General: The patient is awake and alert, in no distress Eye: there is normal conjunctiva bilaterally. Neck: The neck is supple, there is no JVD. Cardiovascular: Normal S1-S2, no S3-S4, no murmurs. Respiratory: Lungs clear to auscultation bilaterally Gastrointestinal: Abdomen is soft, nontender Musculoskeletal: There is +1-2 pedal edema. Neurological:. Speech is normal. Skin: Skin is warm and dry - Labs CBC & Chem 7: 04/18/20 03:27 04/19/20 07:45 Labs: Abnormal Lab Results - Last 24 Hours (Table) 04/19/20 Range/Units 07:45 Sodium 133 L (137-145) mmol/L BUN 33 H (7-17) mg/dL Creatinine 1.71 H (0.52-1.04) mg/dL Calcium 8.0 L (8.4-10.2) mg/dL Assessment and Plan Assessment: This is a 64-year-old female with complex past medical history noted below who was sent to the ER from her dialysis center with abnormal lab work and a hemoglobin of 6.8. Patient was evaluated in the ER and admitted to the hospital for further management of her medical problems noted below. 1. Acute on chronic anemia. Anemia of chronic disease. Status post 1 unit of PRBC on presentation. We will continue to monitor closely. No evidence of GI bleed. Hemoccult negative. 2. End-stage renal disease on hemodialysis, recently started during last admission. Nephrology consulted. Continue dialysis as directed by nephrology 3. Acute hypercapnic respiratory failure, started on BiPAP. Repeat blood gas did not show significant improvement and CO2 level. May be attributed to opiates use an underlying COPD. BiPAP discontinued by ICU team. Her morphine dose was decreased during last admission. Anesthesia will be consulted to turn off the pump. I would suggest getting a repeat blood gas and put patient back on BiPAP if she still in acute respiratory acidosis with elevated CO2. Defer management to pulmonology. 4. Acute toxo metabolic encephalopathy, secondary to #3 and possibly morphine use along with Xanax. Discontinued Xanax. 5. Troponin elevation, most likely non-thrombotic troponin leak secondary to underlying anemia and CKD. Twelve-lead EKG in the ER with no acute ischemic changes. Patient denies any chest pain. Cardiology consulted and no further recommendations at this time 6. Right upper extremity DVT, diagnosed during last admission. On anticoagulation with Eliquis 7. Underlying COPD, continue duo nebs every 6 hours 8. Chronic hypoxic respiratory failure on home O2 9. Chronic back pain/chronic L1 compression fracture status post intrathecal morphine pump: Surgical wound jonathan will be removed today. Morphine dose was reduced during last admission 5 mg per day. We will need to turn off the pump 10. CODE STATUS: Patient is full code. Discussed with her daughter at bedside 11. GI prophylaxis with IV Protonix. DVT prophylaxis with Eliquis
--- NOTE | 2020-04-19 13:11 | P.PN ---
Subjective Progress Note Date: 04/19/20 On today's evaluation of 1020 16,020, the patient is being seen for a follow-up. The patient is quite lethargic and somewhat confused. She is awake and she does not seem to be in acute respiratory distress and she is on a BiPAP at a pressure of 12/5 cm of water and FiO2 of 50%. Her last hemodialysis was on Sunday which is 2 days ago and the patient a total of 3 L of fluid removed. She is moving all 4 extremities. She denying any chest pain. She is afebrile. Her urine output is diminished. Note that the patient developed an acute kidney injury from which she did not recover. She has no active pain and the patient has a morphine pain pump which to my knowledge is running at 3.5 mg a day. She is well-known to me. I took care of her approximately 2 weeks ago when she came in to the ICU for an acute hypoxic respiratory failure and hypercapnic respiratory failure. In addition the patient had a shock liver and acute kidney injury from which she did not recover. She is afebrile. No nausea. No vomiting. No abdominal pain. Creatinine is at 1.7 with a BUN of 33. The thyroid function test is within normal limits. The latest chest x-ray from yesterday showing improvement but still some persistent the bilateral edema/infiltrate with a background chronic parenchymal changes. Objective - Vital Signs Vital signs: Vital Signs Temp 97.4 F L 04/19/20 08:00 Pulse 70 04/19/20 11:33 Resp 12 04/19/20 11:33 BP 101/56 04/19/20 11:31 Pulse Ox 98 04/19/20 11:31 Intake & Output 04/18/20 04/19/20 04/19/20 18:59 06:59 18:59 Intake Total 20 200 0 Output Total 0 Balance 20 200 0 Weight 86.5 kg Intake: IV 20 0 NS 20 0 Oral 200 Output: Urine 0 Other: Voiding Method Bedpan Bedpan Bedpan Diaper Diaper # Voids 0 - Exam Gen. appearance the patient is awake, somnolent and lethargic but arousable. The patient is tolerating a BiPAP at a pressure of 12/5 cm of water and FiO2 of 50% Head exam was generally normal. There was no scleral icterus or corneal arcus. Mucous membranes were moist. Neck was supple and without jugular venous distension, thyromegaly, or carotid bruits. Carotids were easily palpable bilaterally. There was no adenopathy. Lungs sounds are diminished bilaterally otherwise clear. There is no wheezes or rhonchi or any crackles. Cardiac exam revealed the PMI to be normally situated and sized. The rhythm was regular and no extrasystoles were noted during several minutes of auscultation. The first and second heart sounds were normal and physiologic splitting of the second heart sound was noted. There were no murmurs, rubs, clicks, or gallops. Abdominal exam revealed normal bowel sounds. The abdomen was soft, non-tender, and without masses, organomegaly, or appreciable enlargement of the abdominal aorta. The incision over the right abdominal wall is dry clean and intact and there is no active drainage at this point in time. Tisha are all in place. Examination of the extremities revealed easily palpable radial, femoral and pedal pulses. There was no cyanosis, clubbing or and the patient is developing some edema in all 4 extremities more so in the upper extremities bilaterally. Examination of the skin revealed no evidence of significant rashes, suspicious appearing nevi or other concerning lesions. Neurologically the patient is awake and communicating. She is moving all 4 extremities upon stimulation painful stimuli. No focal neurological deficit at this point in time. - Labs CBC & Chem 7: 04/18/20 03:27 04/19/20 07:45 Labs: Abnormal Lab Results - Last 24 Hours (Table) 04/19/20 Range/Units 07:45 Sodium 133 L (137-145) mmol/L BUN 33 H (7-17) mg/dL Creatinine 1.71 H (0.52-1.04) mg/dL Calcium 8.0 L (8.4-10.2) mg/dL Assessment and Plan Plan: 1 acute hypercapnic respiratory failure, CO2 narcosis . The patient is similar admissions in the hospital approximately 2 weeks ago. Back then, we thought this was related to metabolic factors and her morphine pump the dose of which was reduced down to 3.5 mg on a daily basis. Meanwhile, I think that the patient's acute on top of chronic hypercapnic respiratory failure was probably due to fluid overload as the patient is benefit from dialysis and the last session of dialysis was on Sunday during which the total of 3.5 L of fluid was removed. Currently the patient is a BiPAP at a pressure of 12/5 cm of water. 2 acute kidney injury without any significant recovery and a patient is currently on hemodialysis. Urine output is low. 3 COPD 4 chronic back pain and the patient has a morphine pain pump placement is still functioning and the dose of the infusion wasn't used during an earlier hospitalization. 5 acute shock liver, recovered 6 chronic back pain pain and the patient has a morphine pain pump in place, currently on a morphine dose of 3.5 mg over 24 hours 7 previous history of CVA without any major neurologic deficits 8 hypertension 9 previous history of syncope 10 chronic back pain with previous history of back surgery in addition to degenerative spine disease in addition to spondylolisthesis and compression fracture 11 smoker 12 hypertension 13 hyperlipidemia 14 acid reflux 15 thrombocytopenia, stable 16 questionable cholecystitis with some pericholecystic fluid and the patient had abnormal LFTs which ultimately improved. Alkaline phosphatase is down to 140. Bilirubin is not elevated and the patient is not having any right upper quadrant pain or tenderness. This issue was addressed during her latest hospitalization the patient was not found to be a surgical candidate for now. 17 acute DVT in the right IJ and brachial vein and the patient has superficial thrombosis in the cephalic vein and the patient was kept on anticoagulation. 18 chronic anemia Plan Continue BiPAP for respiratory support Hemodialysis per nephrology Fluid balance is further optimized Keep the morphine infusion pump for now June 01 Continue anticoagulation with Eliquis 2.5 mg We'll continue to follow
--- NOTE | 2020-04-19 13:26 | P.PN ---
Subjective Patient is seen and examined resting comfortably in bed on BiPAP. She has no specific complaints other than she feels tired. Blood pressure 101/56 heart rate 70 afebrile maintaining oxygen saturations on BiPAP. Laboratory data reviewed, sodium 133, potassium 4.3, creatinine 1.71, magnesium 2.0 and TSH 1.56. Telemetry tracings indicate a wide complex accelerated ventricular rhythm with a rate in the 70s. She is asymptomatic during these episodes. GENERAL: Well-appearing, well-nourished and in no acute distress. NECK: Supple without JVD or thyromegaly. LUNGS: Breath sounds clear to auscultation bilaterally. Respiration equal and unlabored. No wheezes, rales or rhonchi. HEART: Regular rate and rhythm without murmurs, rubs or gallops. S1 and S2 heard. EXTREMITIES: Normal range of motion, no edema. No clubbing or cyanosis. Peripheral pulses intact. ASSESSMENT Hypoxia Troponin elevation secondary to chronic kidney disease, anemia and hypoxia. Anemia Volume overload secondary to missed dialysis End-stage renal disease on hemodialysis Wide complex accelerated ventricular rhythm History of DVT on eliquis Chronic nicotine dependence PLAN Electrolytes and thyroid were checked and deemed to be unremarkable. The rhythm noted on the monitor was a slow pathway ventricular rhythm, therefore contraindicating beta blockers. Ongoing medical management. Nurse Practitioner note has been reviewed, I agree with a documented findings and plan of care. Patient was seen and examined. Objective - Vital Signs Vital signs: Vital Signs Temp 97.4 F L 04/19/20 08:00 Pulse 70 04/19/20 11:33 Resp 12 04/19/20 11:33 BP 101/56 04/19/20 11:31 Pulse Ox 98 04/19/20 11:31 Intake & Output 04/18/20 04/19/20 04/19/20 18:59 06:59 18:59 Intake Total 20 200 0 Output Total 0 Balance 20 200 0 Weight 86.5 kg Intake: IV 20 0 NS 20 0 Oral 200 Output: Urine 0 Other: Voiding Method Bedpan Bedpan Bedpan Diaper Diaper # Voids 0 - Labs CBC & Chem 7: 04/18/20 03:27 04/19/20 07:45 Labs: Abnormal Lab Results - Last 24 Hours (Table) 04/19/20 Range/Units 07:45 Sodium 133 L (137-145) mmol/L BUN 33 H (7-17) mg/dL Creatinine 1.71 H (0.52-1.04) mg/dL Calcium 8.0 L (8.4-10.2) mg/dL
--- NOTE | 2020-04-19 14:03 | PN ---
PROGRESS NOTE Patient is seen for followup for acute kidney injury currently hemodialysis dependent. Patient was dialyzed on Sunday. She did have evidence of fluid overload. Her chest x-ray has improved. However, she remains fluid overloaded, currently maintained on BiPAP. Patient has been sleepy. She did try to communicate. PHYSICAL EXAMINATION: On examination today, blood pressure is 101/56, heart rate 70 per minute, she is afebrile. Examination of the heart S1, S2. Examination of the lungs, bilateral breath sounds are heard. Abdomen is soft, nontender. Examination of the lower extremities shows edema 2+ bilaterally. [employer] exam shows patient is moving all 4 extremities; however, she is quite weak. LABS: Show hemoglobin 8.2 g/dL, sodium 133, potassium 4.3, BUN 33, creatinine 1.7. TSH 1.5. ASSESSMENT: 1. Acute kidney injury, hemodialysis dependent. Patient remains oliguric. She is maintained on a Sunday, , Sunday schedule. However, I will dialyze her again today, mostly for ultrafiltration for volume overload. 2. Volume overload, currently improving. 3. Mental status changes associated with opiates, morphine dose has been decreased. 4. Respiratory failure maintained on BiPAP currently improved, mostly hypoxic and hypercapnic. 5. Recent admission for hypotension, shocked liver. 6. Anemia with no active bleeding noted. Hemoglobin 6.8 on initial admission, status post packed RBCs transfusion. Stool for occult blood is negative. PLAN: Hemodialysis today, mostly ultrafiltration. We will repeat dialysis again on 04/20/2020. MMODL / IJN: [id number] /
[2020-04-19] MEDS: BUPIVACAINE MISCELLANE SCH (17:03)
[2020-04-19] MEDS: MORPHINE MISCELLANE SCH (17:03)
[2020-04-19] MEDS: GABAPENTIN 100 MG CAP PO SCH (20:05)
[2020-04-20 08:01] LABS: Anisocytosis Slight; Basophils # (A) 0.1 k/uL (0-0.2); Basophils % (A) 1 %; Calcium 8.1 mg/dL (8.4-10.2); Eosinophils # (A) 0.1 k/uL (0-0.7); Eosinophils % (A) 2 %; HCT 25.4 % (34.0-46.0); HGB 7.5 gm/dL (11.4-16.0); Hypochromasia Marked; Lymphocytes # (A) 0.4 k/uL (1.0-4.8); Lymphocytes % (A) 6 %; MCH 30.3 pg (25.0-35.0); MCHC 29.4 g/dL (31.0-37.0); MCV 102.8 fL (80.0-100.0); Macrocytosis Moderate; Monocytes # (A) 0.3 k/uL (0-1.0); Monocytes % (A) 4 %; Neutrophils # (A) 5.8 k/uL (1.3-7.7); Neutrophils % (A) 86 %; Platelet Count 119 k/uL (150-450); Poikilocytosis Moderate; Potassium 4.5 mmol/L (3.5-5.1); RBC 2.47 m/uL (3.80-5.40); WBC 6.7 k/uL (3.8-10.6)
[2020-04-20] MEDS: APIXABAN 2.5 MG TABLET PO SCH ×2 (08:48→20:45)
[2020-04-20] MEDS: FLUCONAZOLE 100 MG TAB PO SCH (08:48)
[2020-04-20] MEDS: PANTOPRAZOLE 40 MG/10 ML VIAL IV SCH (08:48)
[2020-04-20] MEDS: CITALOPRAM HYDROBROMIDE 10 MG TAB PO SCH (08:48)
[2020-04-20] MEDS: TIOTROPIUM 18 MCG/PUFF INHALER INHALATION SCH (08:49)
[2020-04-20] MEDS: dexAMETHasone 2 MG TAB PO SCH (08:49)
[2020-04-20] MEDS: ALBUTEROL HFA INHALER INHALATION SCH ×4 (08:49→20:24)
[2020-04-20 11:27] LABS: ABG HCO3 28 mmol/L (21-25); ABG Oxygen Saturation 93.2 % (94-97); ABG PO2 67 mmHg (83-108); ABG TCO2 31 mmol/L (19-24); Allen Test Performed? Yes
[2020-04-20 11:39] LABS: ABG PCO2 85 mmHg (35-45); ABG PH 7.13 (7.35-7.45)
--- NOTE | 2020-04-20 12:10 | XR ---
EXAMINATION TYPE: XR chest 1V DATE OF EXAM: 04/20/2020 CLINICAL HISTORY: COPD and fluid overload progress study. TECHNIQUE: Single AP portable upright view of the chest is obtained. COMPARISON: Chest x-ray from [address] chest 3 days earlier. FINDINGS: Stable large bore right internal jugular central venous catheter. Persistent reticular and interstitial opacities bilaterally fairly diffusely with relative sparing of the right lung base. Ca rdiac silhouette size stable and within normal limits. No pleural effusion or pneumothorax seen bilat erally. Osseous structures are intact. IMPRESSION: Persistent bilateral multifocal edema and/or infiltrates. No significant change from most recent x-ray. No new pleural effusion noted.
--- NOTE | 2020-04-20 12:14 | P.PN ---
Subjective Patient is seen and examined resting comfortably on the edge of the bed with physical therapy at the beside. She is somnolent and seems slow to respond. She denies chest pain, shortness of breath, dizziness or palpitations. She states she feels weak and tired. Blood pressure 95/40 heart rate 75 afebrile maintaining oxygen saturation on high flow nasal cannula. Laboratory data reviewed, WBC 6.7 hemoglobin 7.5, platelets 119, sodium 135, potassium 4.5, creatinine 1.88, pH 7.13, pCO2 85, pO2 67 and bicarb 28. Telemetry tracings reviewed and indicate an episode of wide complex accelerated ventricular rhythm last night around 5:30. GENERAL: Well-appearing, well-nourished and in no acute distress. NECK: Supple without JVD or thyromegaly. LUNGS: Breath sounds clear to auscultation bilaterally. Respiration equal and unlabored. No wheezes, rales or rhonchi. HEART: Regular rate and rhythm without murmurs, rubs or gallops. S1 and S2 heard. EXTREMITIES: Normal range of motion, no edema. No clubbing or cyanosis. Peripheral pulses intact. ASSESSMENT Hypoxia Troponin elevation secondary to chronic kidney disease, anemia and hypoxia. Anemia Volume overload secondary to missed dialysis End-stage renal disease on hemodialysis Wide complex accelerated ventricular rhythm History of DVT on eliquis Chronic nicotine dependence PLAN Electrolytes and thyroid were checked and deemed to be unremarkable. The rhythm noted on the monitor was a slow pathway ventricular rhythm, therefore contraindicating beta blockers. Ongoing medical management. No further cardiac recommendations at this time. Prognosis is guarded. Follow up with Dr. Merritt upon discharge. Nurse Practitioner note has been reviewed, I agree with a documented findings an d plan of care. Patient was seen and examined. Objective - Vital Signs Vital signs: Vital Signs Temp 96.7 F L 04/20/20 08:00 Pulse 75 04/20/20 08:00 Resp 14 04/20/20 08:00 BP 95/49 04/20/20 08:00 Pulse Ox 95 04/20/20 08:00 Intake & Output 04/19/20 04/20/20 04/20/20 18:59 06:59 18:59 Intake Total 0 0 0 Output Total 1999 0 Balance -1999 0 0 Weight 88 kg Intake: IV 0 NS 0 Oral 0 0 Output: Urine 0 Stool 0 Hemodialysis 2000 Other: Voiding Method Bedpan Bedpan Bedpan Diaper Diaper Diaper # Voids 1 0 # Bowel Movements 0 - Labs CBC & Chem 7: 04/20/20 07:08 04/20/20 07:08 Labs: Abnormal Lab Results - Last 24 Hours (Table) 04/17/20 04/20/20 04/20/20 Range/Units 16:00 07:08 07:08 RBC 2.47 L (3.80-5.40) m/uL Hgb 7.5 L (11.4-16.0) gm/dL Hct 25.4 L (34.0-46.0) % MCV 102.8 H (80.0-100.0) fL MCHC 29.4 L (31.0-37.0) g/dL RDW 16.0 H (11.5-15.5) % Plt Count 119 L (150-450) k/uL Lymphocytes # 0.4 L (1.0-4.8) k/uL ABG pH (7.35-7.45) ABG pCO2 (35-45) mmHg ABG pO2 (83-108) mmHg ABG HCO3 (21-25) mmol/L ABG Total CO2 (19-24) mmol/L ABG O2 Saturation (94-97) % Sodium 135 L (137-145) mmol/L BUN 33 H (7-17) mg/dL Creatinine 1.88 H (0.52-1.04) mg/dL Calcium 8.1 L (8.4-10.2) mg/dL Coronavirus (PCR) Detected H (Not Detected) 04/20/20 Range/Units 11:11 RBC (3.80-5.40) m/uL Hgb (11.4-16.0) gm/dL Hct (34.0-46.0) % MCV (80.0-100.0) fL MCHC (31.0-37.0) g/dL RDW (11.5-15.5) % Plt Count (150-450) k/uL Lymphocytes # (1.0-4.8) k/uL ABG pH 7.13 L* (7.35-7.45) ABG pCO2 85 H* (35-45) mmHg ABG pO2 67 L (83-108) mmHg ABG HCO3 28 H (21-25) mmol/L ABG Total CO2 31 H (19-24) mmol/L ABG O2 Saturation 93.2 L (94-97) % Sodium (137-145) mmol/L BUN (7-17) mg/dL Creatinine (0.52-1.04) mg/dL Calcium (8.4-10.2) mg/dL Coronavirus (PCR) (Not Detected)
--- NOTE | 2020-04-20 13:27 | P.PN ---
Subjective Progress Note Date: 04/20/20 Principal diagnosis: Acute hypercapnic respiratory failure On today's evaluation of 1020 16,020, the patient is being seen for a follow-up. The patient is quite lethargic and somewhat confused. She is awake and she does not seem to be in acute respiratory distress and she is on a BiPAP at a pressure of 12/5 cm of water and FiO2 of 50%. Her last hemodialysis was on Sunday which is 2 days ago and the patient a total of 3 L of fluid removed. She is moving all 4 extremities. She denying any chest pain. She is afebrile. Her urine output is diminished. Note that the patient developed an acute kidney injury from which she did not recover. She has no active pain and the patient has a morphine pain pump which to my knowledge is running at 3.5 mg a day. She is well-known to me. I took care of her approximately 2 weeks ago when she came in to the ICU for an acute hypoxic respiratory failure and hypercapnic respiratory failure. In addition the patient had a shock liver and acute kidney injury from which she did not recover. She is afebrile. No nausea. No vomi ting. No abdominal pain. Creatinine is at 1.7 with a BUN of 33. The thyroid function test is within normal limits. The latest chest x-ray from yesterday showing improvement but still some persistent the bilateral edema/infiltrate with a background chronic parenchymal changes. On 04/20/2020 patient seen in follow-up on selective care unit, she remains very lethargic, slow to respond, she is currently off BiPAP support, she is on 6 L of oxygen pulse ox is 93%, lung sounds are clear, slightly diminished at the bases. No rhonchi or wheezing. 2 L of fluid was removed with hemodialysis yesterday. Patient remains very drowsy, blood gas was obtained showing pO2 of 67, pCO2 of 85 and pH is 7.13, she was placed on BiPAP support, with pressures of 12/6 and FiO2 of 50% in patients at 93%. At the same time patient was found to be positive for COVID 19, patient has been afebrile, denies any cough, denies any headaches, body aches, just remains very weak, fatigued. No nausea or vomiting. Today's chest x-ray shows persistent bilateral multifocal infiltrates. Today's central lab technician and reviewed, showing white blood cell count of 6.7, hemoglobin of 7.5, lymphocyte count 0.4, sodium 135, progressive exercise were within normal limits, BUN of 33 creatinine is 1.8. Objective - Vital Signs Vital signs: Vital Signs Temp 96.7 F L 04/20/20 08:00 Pulse 75 04/20/20 08:00 Resp 14 04/20/20 08:00 BP 95/49 04/20/20 08:00 Pulse Ox 95 04/20/20 08:00 Intake & Output 04/19/20 04/20/20 04/20/20 18:59 06:59 18:59 Intake Total 0 0 0 Output Total 1999 0 Balance -1999 0 0 Weight 88 kg Intake: IV 0 NS 0 Oral 0 0 Output: Urine 0 Stool 0 Hemodialysis 1999 Other: Voiding Method Bedpan Bedpan Bedpan Diaper Diaper Diaper # Voids 1 0 # Bowel Movements 0 - Exam GENERAL EXAM: Very lethargic, 64-year-old white female, on 8 L of oxygen pulse ox of 95%, arousable but slow to respond, in no apparent distress. HEAD: Normocephalic/atraumatic. EYES: Normal reaction of pupils, equal size. Conjunctiva pink, sclera white. NOSE: Clear with pink turbinates. THROAT: No erythema or exudates. NECK: No masses, no JVD, no thyroid enlargement, no adenopathy. CHEST: No chest wall deformity. Symmetrical expansion. LUNGS: Equal air entry with no crackles, wheeze, rhonchi or dullness. CVS: Regular rate and rhythm, normal S1 and S2, no gallops, no murmurs, no rubs ABDOMEN: Soft, nontender. No hepatosplenomegaly, normal bowel sounds, no guarding or rigidity. Right lower abdominal incision the site of pain pump insertion clean dry and intact EXTREMITIES: No clubbing, no edema, no cyanosis, 2+ pulses and upper and lower extremities. MUSCULOSKELETAL: Muscle strength and tone normal. SPINE: No scoliosis or deformity SKIN: No rashes CENTRAL NERVOUS SYSTEM: Drowsy, arousable to verbal stimuli, No focal deficits, tone is normal in all 4 extremities. - Labs CBC & Chem 7: 04/20/20 07:08 04/20/20 07:08 Labs: Abnormal Lab Results - Last 24 Hours (Table) 04/17/20 04/20/20 04/20/20 Range/Units 16:00 07:08 07:08 RBC 2.47 L (3.80-5.40) m/uL Hgb 7.5 L (11.4-16.0) gm/dL Hct 25.4 L (34.0-46.0) % MCV 102.8 H (80.0-100.0) fL MCHC 29.4 L (31.0-37.0) g/dL RDW 16.0 H (11.5-15.5) % Plt Count 119 L (150-450) k/uL Lymphocytes # 0.4 L (1.0-4.8) k/uL ABG pH (7.35-7.45) ABG pCO2 (35-45) mmHg ABG pO2 (83-108) mmHg ABG HCO3 (21-25) mmol/L ABG Total CO2 (19-24) mmol/L ABG O2 Saturation (94-97) % Sodium 135 L (137-145) mmol/L BUN 33 H (7-17) mg/dL Creatinine 1.88 H (0.52-1.04) mg/dL Calcium 8.1 L (8.4-10.2) mg/dL Coronavirus (PCR) Detected H (Not Detected) 04/20/20 Range/Units 11:11 RBC (3.80-5.40) m/uL Hgb (11.4-16.0) gm/dL Hct (34.0-46.0) % MCV (80.0-100.0) fL MCHC (31.0-37.0) g/dL RDW (11.5-15.5) % Plt Count (150-450) k/uL Lymphocytes # (1.0-4.8) k/uL ABG pH 7.13 L* (7.35-7.45) ABG pCO2 85 H* (35-45) mmHg ABG pO2 67 L (83-108) mmHg ABG HCO3 28 H (21-25) mmol/L ABG Total CO2 31 H (19-24) mmol/L ABG O2 Saturation 93.2 L (94-97) % Sodium (137-145) mmol/L BUN (7-17) mg/dL Creatinine (0.52-1.04) mg/dL Calcium (8.4-10.2) mg/dL Coronavirus (PCR) (Not Detected) Assessment and Plan Plan: Assessment: 1 acute hypercapnic respiratory failure, CO2 narcosis . The patient is similar admissions in the hospital approximately 2 weeks ago. Back then, we thought this was related to metabolic factors and her morphine pump the dose of which was reduced down to 3.5 mg on a daily basis. Meanwhile, I think that the patient's acute on top of chronic hypercapnic respiratory failure was probably due to fluid overload as the patient is benefit from dialysis and the last session of dialysis was on Sunday during which the total of 3.5 L of fluid was removed. Currently the patient is a BiPAP at a pressure of 12/5 cm of water. 2 Acute COVID 19 infection 3 acute kidney injury without any significant recovery and a patient is currently on hemodialysis. Urine output is low. 4 COPD 5 chronic back pain and the patient has a morphine pain pump placement is still functioning and the dose of the infusion wasn't used during an earlier hos pitalization. 6 acute shock liver, recovered 7 chronic back pain pain and the patient has a morphine pain pump in place, currently on a morphine dose of 3.5 mg over 24 hours 8 previous history of CVA without any major neurologic deficits 9 hypertension 10 previous history of syncope 11 chronic back pain with previous history of back surgery in addition to degenerative spine disease in addition to spondylolisthesis and compression fracture 12 smoker 13 hypertension 14 hyperlipidemia 15 acid reflux 16 thrombocytopenia, stable 17 questionable cholecystitis with some pericholecystic fluid and the patient had abnormal LFTs which ultimately improved. Alkaline phosphatase is down to 14 0. Bilirubin is not elevated and the patient is not having any right upper quadrant pain or tenderness. This issue was addressed during her latest hospitalization the patient was not found to be a surgical candidate for now. 18 acute DVT in the right IJ and brachial vein and the patient has superficial thrombosis in the cephalic vein and the patient was kept on anticoagulation. 19 chronic anemia Plan: Blood gases have been reviewed, chest x-ray reviewed, patient was found to be positive for Covid 19. She was placed on BiPAP support pressures of 12 and 6 and FiO2 of 50%, she will be transferred to the intensive care unit, she was started on oral Decadron, we will start zinc and vitamin C and vitamin D. We spoke to the inpatient pharmacy regarding possibility of starting Remdesivir, however in view of patient's low GFR of less than 30, Remdesivir was not recommended. We'll continue supportive to the patient, we'll consult anesthesia services, discussed the case with the anesthesiologist, and the morphine pump will be stopped. We will continue following inflammatory markers and daily chest x-rays. Close monitoring in the ICU I performed a history & physical examination of the patient and discussed their management with my nurse practitioner, Osiris Smith. I reviewed the nurse practitioner's note and agree with the documented findings and plan of care. Lung sounds are positive for clear breath sounds. The findings and the impression was discussed with the patient. I attest to the documentation by the nurse practitioner. Time with Patient: Less than 30
--- NOTE | 2020-04-20 14:14 | PN ---
PROGRESS NOTE Patient is seen for followup for acute kidney injury, currently hemodialysis dependent. She was admitted with mental status changes, increased weakness. There was evidence of fluid overload. Patient was dialyzed on Sunday and she had another treatment yesterday. Volume status is improved; however, the COVID test that was sent on initial admission came back positive. Patient is off the BiPAP. She is still weak and not eating much. PHYSICAL EXAMINATION: Today, patient is comfortable. She is awake, she did answer some questions. Blood pressure was 112/54, heart rate 68 per minute, patient is afebrile. Examination shows edema 2+ bilateral lower extremities. Abdomen is soft, nontender. [employer] exam shows patient is moving all 4 extremities. LABS: Show sodium 135, potassium 4.5, BUN 33, creatinine 1.8, hemoglobin 7.5 g/dL. ASSESSMENT: 1. Acute kidney injury, currently hemodialysis dependent with no significant urine output, maintained on hemodialysis. We will arrange for hemodialysis today and then again in a.m. 2. Fluid overload, currently improving with the daily treatments. 3. COVID-19 pneumonia with bilateral infiltrates, significantly improved with dialysis, suggesting more of fluid overload rather than pneumonia. However, patient will be started on treatment for COVID-19. 4. Mental status changes associated with opiates. Morphine pump has been decreased, further management through Pain Management. PLAN: Hemodialysis today and then again in a.m. Increase UF as tolerated. We had about 2 L taken off yesterday. Will plan for another 2-3 L today and tomorrow. MMODL / IJN: [id number] /
--- NOTE | 2020-04-20 14:25 | P.PN ---
Progress Note - Text Progress Note Date: 04/20/20 Dr. Linares has asked that we adjust the patients pain pump which was placed by Dr. Kramer in . This is the second visit to the hospital with hypercarbic resp failure, she is also COVID positive now. She is on BPAP and on HD. On todays visit, her pump reads that there is 6.4 ml of 25mg/ml morphine solution. She was receiving 3.499mg/day intrathecal morphine. On todays visit I have decreased the dose to 1.2mg/day (68% decrease). It is unlikely she will withdraw from the decrease but given she is in the hospital and will be going to the ICU we can monitor her closely. If there are signs of withdrawl, I would recommend Small doses of Hydromorphone 0.5mg q4-6 hours and avoid morphine given her kidney failure and HD status. Anesthesia Pain management. Subhash Reyes M.D.
[2020-04-20 16:24] LABS: Glucose,Whole Blood 124 mg/dL (75-99)
--- NOTE | 2020-04-20 16:36 | P.PN ---
Subjective Progress Note Date: 04/20/20 Patient was seen and examined. No acute events overnight. Patient with increased lethargy. Though easily arousable. Chest x-ray shows persistent bilateral multifocal edema or infiltrate. ABG shows pH 7.13, pCO2 85, bicarb 28. Decision made by pulmonology to send patient to ICU. Currently on BiPAP. Coronavirus testing positive. Objective - Vital Signs Vital signs: Vital Signs Temp 97.0 F L 04/20/20 15:24 Pulse 75 04/20/20 15:24 Resp 25 H 04/20/20 15:24 BP 99/56 04/20/20 15:24 Pulse Ox 94 L 04/20/20 12:00 Intake & Output 04/19/20 04/20/20 04/20/20 18:59 06:59 18:59 Intake Total 0 0 0 Output Total 1999 3000 Balance -1999 0 -3000 Weight 88 kg Intake: IV 0 NS 0 Oral 0 0 Output: Urine 0 Stool 0 Hemodialysis 1999 3000 Other: Voiding Method Bedpan Bedpan Bedpan Diaper Diaper Diaper # Voids 1 0 # Bowel Movements 0 - Exam General: [non toxic], [lethargic but arousable on BiPAP], [appears at stated age] Derm: [warm], [dry] Head: [atraumatic], [normocephalic], [symmetric] Eyes: [EOMI], [no lid lag], [anicteric sclera] Mouth: [no lip lesion], [mucus membranes moist] Cardiovascular: [S1S2 reg], [no murmur], [positive DP pulse bilateral], Lungs: [Coarse breath sounds bilateral], [no rhonchi, no rales] , [no accessory muscle use] Abdominal: [soft], [ nontender to palpation], [no guarding], [no appreciable organomegaly] Ext: [no gross muscle atrophy], [2+ pitting bilateral lower extremity edema], [no contractures] Neuro: [no focal neuro deficits] Psych: [Unable to determine as patient is very lethargic on BiPAP] - Labs CBC & Chem 7: 04/20/20 07:08 04/20/20 07:08 Labs: Abnormal Lab Results - Last 24 Hours (Table) 04/17/20 04/20/20 04/20/20 Range/Units 16:00 07:08 07:08 RBC 2.47 L (3.80-5.40) m/uL Hgb 7.5 L (11.4-16.0) gm/dL Hct 25.4 L (34.0-46.0) % MCV 102.8 H (80.0-100.0) fL MCHC 29.4 L (31.0-37.0) g/dL RDW 16.0 H (11.5-15.5) % Plt Count 119 L (150-450) k/uL Lymphocytes # 0.4 L (1.0-4.8) k/uL ABG pH (7.35-7.45) ABG pCO2 (35-45) mmHg ABG pO2 (83-108) mmHg ABG HCO3 (21-25) mmol/L ABG Total CO2 (19-24) mmol/L ABG O2 Saturation (94-97) % Sodium 135 L (137-145) mmol/L BUN 33 H (7-17) mg/dL Creatinine 1.88 H (0.52-1.04) mg/dL POC Glucose (mg/dL) (75-99) mg/dL Calcium 8.1 L (8.4-10.2) mg/dL Lactate Dehydrogenase (313-618) U/L Coronavirus (PCR) Detected H (Not Detected) 04/20/20 04/20/20 04/20/20 Range/Units 07:08 11:11 16:13 RBC (3.80-5.40) m/uL Hgb (11.4-16.0) gm/dL Hct (34.0-46.0) % MCV (80.0-100.0) fL MCHC (31.0-37.0) g/dL RDW (11.5-15.5) % Plt Count (150-450) k/uL Lymphocytes # (1.0-4.8) k/uL ABG pH 7.13 L* (7.35-7.45) ABG pCO2 85 H* (35-45) mmHg ABG pO2 67 L (83-108) mmHg ABG HCO3 28 H (21-25) mmol/L ABG Total CO2 31 H (19-24) mmol/L ABG O2 Saturation 93.2 L (94-97) % Sodium (137-145) mmol/L BUN (7-17) mg/dL Creatinine (0.52-1.04) mg/dL POC Glucose (mg/dL) 124 H (75-99) mg/dL Calcium (8.4-10.2) mg/dL Lactate Dehydrogenase 1672 H (313-618) U/L Coronavirus (PCR) (Not Detected) Assessment and Plan Assessment: This is a 64-year-old female with complex past medical history noted below who was sent to the ER from her dialysis center with abnormal lab work and a hemoglobin of 6.8. Patient was evaluated in the ER and admitted to the hospital for further management of her medical problems noted below. # Acute hypercapnic respiratory failure, related to COVID 19 started on BiPAP. Repeat blood gas shows worsening of CO2 level. May be attributed to opiates use an underlying COPD. BiPAP started by pulmonology and patient admitted to ICU. Her morphine dose was decreased during last admission. Anesthesia will be consulted to turn off the pump, Morphine decreased today. Low threshold for intubation. Start Dexamethasone, Zinc. Patient not candidate for Remdesivir due to renal function. Isolation and airborne/droplett precautions. # Acute on chronic anemia. Anemia of chronic disease. Status post 1 unit of PRBC on presentation. We will continue to monitor closely. No evidence of GI bleed. Hemoccult negative. # End-stage renal disease on hemodialysis, recently started during last admission. Nephrology consulted. Continue dialysis as directed by nephrology # Acute toxo metabolic encephalopathy, secondary to above problems and possibly morphine use along with Xanax. Discontinued Xanax. # Troponin elevation, most likely non-thrombotic troponin leak secondary to underlying anemia and CKD. Twelve-lead EKG in the ER with no acute ischemic changes. Patient denies any chest pain. Cardiology consulted and no further recommendations at this time # Right upper extremity DVT, diagnosed during last admission. On anticoagulation with Eliquis # Underlying COPD, continue duo nebs every 6 hours # Chronic hypoxic respiratory failure on home O2 # Chronic back pain/chronic L1 compression fracture status post intrathecal morphine pump: Surgical wound jonathan will be removed today. Morphine dose was reduced during last admission 5 mg per day. We will need to turn off the pump # CODE STATUS: Patient is full code. Discussed with her daughter at bedside # GI prophylaxis with IV Protonix. DVT prophylaxis with Eliquis
[2020-04-20 16:48] LABS: ABG Base Excess -3.2 mmol/L; ABG HCO3 26 mmol/L (21-25); ABG Oxygen Saturation 96.9 % (94-97); ABG PO2 85 mmHg (83-108); ABG TCO2 29 mmol/L (19-24); Allen Test Performed? Yes
[2020-04-20 17:12] LABS: ABG PH 7.13 (7.35-7.45)
[2020-04-20] MEDS ORDERED: NALOXONE 0.4 MG/ML 1 ML VIAL IVP STA (17:12)
[2020-04-20 17:13] LABS: ABG PCO2 79 mmHg (35-45)
[2020-04-20] MEDS: ZINC SULFATE 220 MG CAP PO SCH (17:43)
[2020-04-20] MEDS: ASCORBIC ACID 500 MG TAB PO SCH (17:43)
--- NOTE | 2020-04-20 17:47 | XR ---
EXAMINATION TYPE: XR chest 1V portable DATE OF EXAM: 04/20/2020 COMPARISON: Today HISTORY: Short of breath TECHNIQUE: FINDINGS: There is diffuse pulmonary edema. There is right central venous catheter with tip in the chavez perior vena cava. There is an extensive interstitial nodular infiltrate. Heart size is normal. Pulmonary vascularity is difficult to evaluate. I see no definite heart failure. There is no pleural effusion. IMPRESSION: Pulmonary interstitial edema and advanced interstitial pneumonia not significantly differ ent than yesterday. Disease also is similar to older exam of 04/06/2020.
--- NOTE | 2020-04-20 18:24 | P.PCN ---
Date of Procedure: 04/20/20 Preoperative Diagnosis: Acute hypoxic respiratory failure, Covid 19 related pneumonia Postoperative Diagnosis: Acute hypoxic respiratory failure, Covid 19 related pneumonia Procedure(s) Performed: Insertion of a triple-lumen catheter Anesthesia: local Surgeon: Ermias Linares Estimated Blood Loss (ml): 0 Pathology: none sent Condition: critical Disposition: ICU Operative Findings: Indication: Hemodynamic monitoring/Intravenous access. A time-out was completed verifying correct patient, procedure, site, positioning, and implant(s) or special equipment if applicable. The patient was placed in a dependent position appropriate for central line placement based on the vein to be cannulated. The patients right groin was prepped and draped in sterile fashion. 1% Lidocaine was used to anesthetize the surrounding skin area. A triple lumen 9F Cordis catheter was introduced into the common femoral vein using Seldinger technique. The catheter was threaded smoothly over the guide wire and appropriate blood return was obtained. Each lumen of the catheter was evacuated of air and flushed with sterile saline. The catheter was then sutured in place to the skin and a sterile dressing applied. Perfusion to the extremity distal to the point of catheter insertion was checked and found to be adequate. The patient tolerated the procedure well and there were no complications.
[2020-04-20] MEDS: GABAPENTIN 100 MG CAP PO SCH (20:45)
[2020-04-21] MEDS: MORPHINE MISCELLANE SCH ×2 (05:36→23:54)
[2020-04-21] MEDS: BUPIVACAINE MISCELLANE SCH ×2 (05:36→23:54)
[2020-04-21 05:37] LABS: Potassium 3.8 mmol/L (3.5-5.1)
[2020-04-21 05:41] LABS: Anisocytosis Slight; HCT 21.7 % (34.0-46.0); Hypochromasia Marked; MCH 29.7 pg (25.0-35.0); MCHC 29.6 g/dL (31.0-37.0); MCV 100.6 fL (80.0-100.0); Macrocytosis Slight; Mean Platelet Volume 8.3; Platelet Count 147 k/uL (150-450); Poikilocytosis Moderate; RBC 2.16 m/uL (3.80-5.40); WBC 3.4 k/uL (3.8-10.6)
[2020-04-21 05:52] LABS: HGB 6.4 gm/dL (11.4-16.0)
[2020-04-21 05:57] LABS: C Reactive Protein 131.8 mg/L (<10.0)
[2020-04-21 06:07] LABS: D-Dimer 1.39 mg/L FEU (<0.60)
[2020-04-21 07:03] LABS: Band Neutrophils % 7 %; Lymphocytes # (M) 0.34 k/uL (1.0-4.8); Neutrophils % (M) 77 %; Nucleated Red Blood Cells 0 /100 WBC (0-0); Total Cells Counted 100
[2020-04-21 07:04] LABS: Anisocytosis (M) Present
[2020-04-21] MEDS: ALBUTEROL HFA INHALER INHALATION SCH ×4 (07:46→21:28)
[2020-04-21] MEDS ORDERED: POTASSIUM CHLORIDE ER 20 MEQ TAB.ER PO SCH (08:00)
[2020-04-21] MEDS: TIOTROPIUM 18 MCG/PUFF INHALER INHALATION SCH (08:09)
[2020-04-21] MEDS ORDERED: ASCORBIC ACID 500 MG TAB PO SCH (09:00)
[2020-04-21] MEDS: dexAMETHasone 2 MG TAB PO SCH (09:15)
[2020-04-21] MEDS: ZINC SULFATE 220 MG CAP PO SCH (09:15)
[2020-04-21] MEDS: PANTOPRAZOLE 40 MG/10 ML VIAL IV SCH (09:15)
[2020-04-21] MEDS: FLUCONAZOLE 100 MG TAB PO SCH (09:15)
[2020-04-21] MEDS: APIXABAN 2.5 MG TABLET PO SCH ×2 (09:16→19:50)
[2020-04-21] MEDS: ASCORBIC ACID 500 MG TAB PO SCH (09:16)
[2020-04-21] MEDS: CITALOPRAM HYDROBROMIDE 10 MG TAB PO SCH (09:16)
--- NOTE | 2020-04-21 09:28 | XR ---
EXAMINATION TYPE: XR chest 1V portable DATE OF EXAM: 04/21/2020 COMPARISON: 04/20/2020 INDICATION: Covid pneumonia TECHNIQUE: Single frontal view of the chest is obtained. FINDINGS: The heart size is normal. The pulmonary vasculature is normal. There is diffuse increased lung markings bilaterally. Findings appear stable from comparison. Double-lumen catheter is present on the right with the tips in the superior vena cava region. IMPRESSION: 1. Diffuse increased lung markings bilaterally compatible with atypical pneumonia
[2020-04-21 10:34] LABS: ABG Base Excess -0.4 mmol/L; ABG HCO3 25 mmol/L (21-25); ABG Oxygen Saturation 89.1 % (94-97); ABG PCO2 46 mmHg (35-45); ABG PH 7.35 (7.35-7.45); ABG TCO2 27 mmol/L (19-24); Allen Test Performed? Yes
[2020-04-21 10:37] LABS: ABG PO2 51 mmHg (83-108)
--- NOTE | 2020-04-21 11:38 | PN ---
PROGRESS NOTE Patient is seen for followup for hemodialysis dependent acute kidney injury. Patient was transferred to the ICU secondary to worsening respiratory status. She is maintained on BiPAP. Patient had dialysis yesterday, we were able to get about 3 L of fluid removed yesterday. On examination today, patient is on BiPAP, have discussed with the nursing staff. She is currently on dialysis as well. Patient is tolerating her treatment well. Systolic blood pressure is staying in the 110-115 range, heart rate at 59-58 per minute, patient is afebrile. She continues to have edema at least 1+ bilateral lower extremities. Patient is awake, but lethargic. ICE SELLER exam shows she has been moving all 4 extremities. LABS: Reviewed which show sodium 132, potassium 3.8, hemoglobin was down to 6.4 g/dL. No active bleeding noted. ASSESSMENT: 1. Acute kidney injury, hemodialysis dependent, renal failure with no urine output, currently being dialyzed on a daily basis, mostly for volume overload. 2. COVID-19 pneumonia, to be started on Remdesivir post dialysis. 3. Volume overload, slowly improving. 4. Hypoxic respiratory failure secondary to COVID-19 pneumonia as well as fluid overload, currently improving. 5. Anemia, no active bleeding noted. Hemoglobin has been about 7.5-8 mg/dL down to 6.4 today. Patient will be getting packed RBCs transfusion. PLAN: Hemodialysis today, mostly ultrafiltration only as her serum creatinine and BUN are not significantly elevated. We will try to remove 2-3 L again today. Recommend transfusion of 1 unit packed RBCs for hemoglobin of 6.4. Continue treatment of slater virus. MMODL / IJN: [id number] /
--- NOTE | 2020-04-21 12:52 | P.PN ---
Subjective Progress Note Date: 04/21/20 On 04/21/2020, the patient is in intensive care unit. The patient got transferred to the intensive care unit yesterday as the patient was becoming more confused and lethargic and somnolent. I did a blood gases on her and there was a component of acute on top of chronic respiratory acidosis with a pH of 7.13 and a pCO2 of 85 and pO2 of 67. I DO NOT INTUBATE the patient. I offered her BiPAP therapy throughout the night. Noted the patient was also diagnosed having a COVID 19 infection and I think the chest x-ray findings are consistent with coronavirus COVID 19 related pneumonia. Going back to her previous chest x-rays, I realize that the pulmonary infiltrates initially developed on 04/06/20 when the patient was about to get discharged from the hospital on her latest hospitalization. The patient is currently on a BiPAP for respiratory support at a pressure of 12/5 cm of water and FiO2 is being titrated to maintain saturation above 90%. This morning, she is much more awake compared to yesterday. Note that the morphine infusion pump was reduced to 1.5 mg a 24 hour period. The pat ient has a pH of 7.35 with a pCO2 of 46 and pO2 of 50 on today's blood gases and this was done and FiO2 of 35% the chest x-ray showing diffuse increased interstitial lung markings compatible with coronavirus covid.19 pneumonia. The patient underwent hemodialysis yesterday. Her morning hemoglobin is at 6.4 and the patient will be given units of packed RBC. Her white cell count is at 3.4. No signs of any bleeding. She is more interactive on today's evaluation. She is moving all 4 extremities. She has been afebrile for now. Objective - Vital Signs Vital signs: Vital Signs Temp 97.4 F L 04/21/20 08:00 Pulse 84 04/21/20 11:00 Resp 24 04/21/20 11:00 BP 100/63 04/21/20 11:00 Pulse Ox 63 L 04/21/20 11:00 Intake & Output 04/20/20 04/21/20 04/21/20 18:59 06:59 18:59 Intake Total 20 Output Total 3000 0 0 Balance -2980 0 0 Weight 90.7 kg Intake: IV 20 NS 20 Oral 0 Output: Urine 0 0 0 Stool 0 Hemodialysis 3000 Other: Voiding Method Bedpan Diaper # Voids 0 # Bowel Movements 0 1 - Exam Gen. appearance the patient is awake, somnolent and lethargic but arousable. The patient is tolerating a BiPAP at a pressure of 12/5 cm of water and FiO2 being titrated between 35-50% to maintain a saturation above 90%. Head exam was generally normal. There was no scleral icterus or corneal arcus. Mucous membranes were moist. Neck was supple and without jugular venous distension, thyromegaly, or carotid bruits. Carotids were easily palpable bilaterally. There was no adenopathy. Lungs sounds are diminished bilaterally otherwise clear.there are some crackles in lung bases bilaterally and the breath sounds overall diminished and the patient is quite synchronous with the BiPAP machine. Heart exam revealed the PMI to be normally situated and sized. The rhythm was regular and no extrasystoles were noted during several minutes of auscultation. The first and second heart sounds were normal and physiologic splitting of the second heart sound was noted. There were no murmurs, rubs, clicks, or gallops. Abdominal exam revealed normal bowel sounds. The abdomen was soft, non-tender, and without masses, organomegaly, or appreciable enlargement of the abdominal aorta. The incision over the right abdominal wall is dry clean and intact and there is no active drainage at this point in time. the patient has a triple- lumen catheter in the right femoral vein examination of the extremities revealed easily palpable radial, femoral and pedal pulses. There was no cyanosis, clubbing or and the patient is developing some edema in all 4 extremities more so in the upper extremities bilaterally. Examination of the skin revealed no evidence of significant rashes, suspicious appearing nevi or other concerning lesions. Neurologically the patient is awake and communicating. She is moving all 4 extremities upon stimulation painful stimuli. No focal neurological deficit at this point in time. - Labs CBC & Chem 7: 04/21/20 04:50 04/21/20 04:50 Labs: Abnormal Lab Results - Last 24 Hours (Table) 04/20/20 04/20/20 04/20/20 Range/Units 07:08 16:13 16:45 WBC (3.8-10.6) k/uL RBC (3.80-5.40) m/uL Hgb (11.4-16.0) gm/dL Hct (34.0-46.0) % MCV (80.0-100.0) fL MCHC (31.0-37.0) g/dL RDW (11.5-15.5) % Plt Count (150-450) k/uL Lymphocytes # (Manual) (1.0-4.8) k/uL Fibrinogen (200-500) mg/dL D-Dimer (<0.60) mg/L FEU ABG pH 7.13 L* (7.35-7.45) ABG pCO2 79 H* (35-45) mmHg ABG pO2 (83-108) mmHg ABG HCO3 26 H (21-25) mmol/L ABG Total CO2 29 H (19-24) mmol/L ABG O2 Saturation (94-97) % Sodium (137-145) mmol/L BUN (7-17) mg/dL Creatinine (0.52-1.04) mg/dL POC Glucose (mg/dL) 124 H (75-99) mg/dL Calcium (8.4-10.2) mg/dL Lactate Dehydrogenase 1672 H (313-618) U/L C-Reactive Protein (<10.0) mg/L Crossmatch 04/21/20 04/21/20 04/21/20 Range/Units 04:50 04:50 04:50 WBC 3.4 L (3.8-10.6) k/uL RBC 2.16 L (3.80-5.40) m/uL Hgb 6.4 L* (11.4-16.0) gm/dL Hct 21.7 L (34.0-46.0) % MCV 100.6 H (80.0-100.0) fL MCHC 29.6 L (31.0-37.0) g/dL RDW 16.0 H (11.5-15.5) % Plt Count 147 L (150-450) k/uL Lymphocytes # (Manual) 0.34 L (1.0-4.8) k/uL Fibrinogen 559 H (200-500) mg/dL D-Dimer 1.39 H (<0.60) mg/L FEU ABG pH (7.35-7.45) ABG pCO2 (35-45) mmHg ABG pO2 (83-108) mmHg ABG HCO3 (21-25) mmol/L ABG Total CO2 (19-24) mmol/L ABG O2 Saturation (94-97) % Sodium 132 L (137-145) mmol/L BUN 35 H (7-17) mg/dL Creatinine 1.72 H (0.52-1.04) mg/dL POC Glucose (mg/dL) (75-99) mg/dL Calcium 8.0 L (8.4-10.2) mg/dL Lactate Dehydrogenase 1362 H (313-618) U/L C-Reactive Protein 131.8 H (<10.0) mg/L Crossmatch 04/21/20 04/21/20 Range/Units 06:30 10:31 WBC (3.8-10.6) k/uL RBC (3.80-5.40) m/uL Hgb (11.4-16.0) gm/dL Hct (34.0-46.0) % MCV (80.0-100.0) fL MCHC (31.0-37.0) g/dL RDW (11.5-15.5) % Plt Count (150-450) k/uL Lymphocytes # (Manual) (1.0-4.8) k/uL Fibrinogen (200-500) mg/dL D-Dimer (<0.60) mg/L FEU ABG pH (7.35-7.45) ABG pCO2 46 H (35-45) mmHg ABG pO2 51 L* (83-108) mmHg ABG HCO3 (21-25) mmol/L ABG Total CO2 27 H (19-24) mmol/L ABG O2 Saturation 89.1 L (94-97) % Sodium (137-145) mmol/L BUN (7-17) mg/dL Creatinine (0.52-1.04) mg/dL POC Glucose (mg/dL) (75-99) mg/dL Calcium (8.4-10.2) mg/dL Lactate Dehydrogenase (313-618) U/L C-Reactive Protein (<10.0) mg/L Crossmatch See Detail Assessment and Plan Plan: 1 acute on top of chronic hypoxic and hypercapnic hypercapnic respiratory failure, CO2 narcosis . The patient developed also diffuse bilateral pulmonary infiltrates and is development over the past 10 days at least and the patient's initial chest x-ray that showed some infiltration was on 04/06/2020. I suspect that the patient got infected with Covid 19 during her earlier hospitalization, however MT cannot confirm that with absolute certainty. Based on my review of her chest x-rays, there was some increased infiltration in developed on 04/06. The patient is currently on BiPAP for respiratory support and the patient is able to tolerate the BiPAP well. Subsequent blood gases from this morning showed improvement and acid base status and there is still some ongoing hypoxemia. 2 Acute COVID 19 infection, and secondary Covid 19 related pneumonia 3 acute kidney injury without any significant recovery and a patient is currently on hemodialysis. 4 COPD 5 chronic back pain and the patient has a morphine pain pump placement and the pump was reduced down to 1.5 mg daily basis of morphine 6 acute shock liver, recovered 7 chronic back pain pain and the patient has a morphine pain pump in place, currently on a morphine dose of 1.5 mg over 24 hours, the reduction in those was done yesterday. 8 previous history of CVA without any major neurologic deficits 9 hypertension 10 previous history of syncope 11 chronic back pain with previous history of back surgery in addition to degenerative spine disease in addition to spondylolisthesis and compression fracture 12 smoker 13 hypertension 14 hyperlipidemia 15 acid reflux 16 thrombocytopenia, stable 17 questionable cholecystitis with some pericholecystic fluid and the patient had abnormal LFTs which ultimately improved. Alkaline phosphatase is down to 140. Bilirubin is not elevated and the patient is not having any right upper quadrant pain or tenderness. This issue was addressed during her latest hospitalization the patient was not found to be a surgical candidate for now. 18 acute DVT in the right IJ and brachial vein and the patient has superficial thrombosis in the cephalic vein and the patient was kept on anticoagulation. 19 acute on chronic anemia with drop in hemoglobin of 6.4 without evidence of any acute bleeding Plan Transfuse the patient with units of packed RBC Proceed with hemodialysis Discussed the case with pharmacy and we are going to offer this patient Remdesivir. The patient has impaired renal function and currently she is on dialysis and there are no signs of improvement in the renal function. We will closely monitor the hepatitic function as the patient is taken his medication. The patient also on Decadron 6 mg on a daily basis. Continue anticoagulation with Eliquis Continue BiPAP for respiratory support. Following dialysis, we can transition this patient to a high flow oxygen she is able to tolerate knowing that her acid base status is improved considerably The morphine infusion rate has been reduced without any major signs of withdrawal We'll continue monitoring this patient in intensive care unit and further, this is to follow based on her progress. Condition is critical at this point in time. His evaluation was done more than 30 minutes. Time with Patient: Greater than 30
[2020-04-21] MEDS ORDERED: REMDESIVIR (EUA) 200 MG in SODIUM CHLORIDE 0.9% 250 ML IVPB ONE (14:00)
--- NOTE | 2020-04-21 16:27 | P.PN ---
Subjective Progress Note Date: 04/21/20 Patient was seen and examined. No acute events overnight. Her mentation has improved today. ABG shows pH 7.35 pCO2 46 and HCO3 27. Improved from yesterday. Currently on 8L HFNC. Coronavirus testing positive. Objective - Vital Signs Vital signs: Vital Signs Temp 97.6 F 04/21/20 16:00 Pulse 68 04/21/20 16:00 Resp 16 04/21/20 16:00 BP 124/61 04/21/20 16:00 Pulse Ox 88 L 04/21/20 16:00 Intake & Output 04/20/20 04/21/20 04/21/20 18:59 06:59 18:59 Intake Total 20 310 Output Total 3000 0 3500 Balance -2980 0 -3190 Weight 90.7 kg Intake: IV 20 NS 20 Oral 0 Blood Product 310 Rc Pheresis As-3 Unit 310 [id number] Output: Urine 0 0 0 Stool 0 Hemodialysis 3000 3500 Other: Voiding Method Bedpan Diaper # Voids 0 # Bowel Movements 0 1 - Exam General: [non toxic], [lethargic], [appears at stated age] Derm: [warm], [dry] Head: [atraumatic], [normocephalic], [symmetric] Eyes: [EOMI], [no lid lag], [anicteric sclera] Mouth: [no lip lesion], [mucus membranes moist] Cardiovascular: [S1S2 reg], [no murmur], [positive DP pulse bilateral], Lungs: [Coarse breath sounds bilateral], [no rhonchi, no rales] , [no accessory muscle use] Abdominal: [soft], [ nontender to palpation], [no guarding], [no appreciable organomegaly] Ext: [no gross muscle atrophy], [2+ pitting bilateral lower extremity edema], [no contractures] Neuro: [no focal neuro deficits] Psych: [Lethargic but answering questions appropriately] - Labs CBC & Chem 7: 04/21/20 04:50 04/21/20 04:50 Labs: Abnormal Lab Results - Last 24 Hours (Table) 04/17/20 04/20/20 04/20/20 Range/Units 12:34 16:13 16:45 WBC (3.8-10.6) k/uL RBC (3.80-5.40) m/uL Hgb (11.4-16.0) gm/dL Hct (34.0-46.0) % MCV (80.0-100.0) fL MCHC (31.0-37.0) g/dL RDW (11.5-15.5) % Plt Count (150-450) k/uL Lymphocytes # (Manual) (1.0-4.8) k/uL Fibrinogen (200-500) mg/dL D-Dimer (<0.60) mg/L FEU ABG pH 7.13 L* (7.35-7.45) ABG pCO2 79 H* (35-45) mmHg ABG pO2 (83-108) mmHg ABG HCO3 26 H (21-25) mmol/L ABG Total CO2 29 H (19-24) mmol/L ABG O2 Saturation (94-97) % Sodium (137-145) mmol/L BUN (7-17) mg/dL Creatinine (0.52-1.04) mg/dL POC Glucose (mg/dL) 124 H (75-99) mg/dL Calcium (8.4-10.2) mg/dL Lactate Dehydrogenase (313-618) U/L C-Reactive Protein (<10.0) mg/L Crossmatch See Detail 04/21/20 04/21/20 04/21/20 Range/Units 04:50 04:50 04:50 WBC 3.4 L (3.8-10.6) k/uL RBC 2.16 L (3.80-5.40) m/uL Hgb 6.4 L* (11.4-16.0) gm/dL Hct 21.7 L (34.0-46.0) % MCV 100.6 H (80.0-100.0) fL MCHC 29.6 L (31.0-37.0) g/dL RDW 16.0 H (11.5-15.5) % Plt Count 147 L (150-450) k/uL Lymphocytes # (Manual) 0.34 L (1.0-4.8) k/uL Fibrinogen 559 H (200-500) mg/dL D-Dimer 1.39 H (<0.60) mg/L FEU ABG pH (7.35-7.45) ABG pCO2 (35-45) mmHg ABG pO2 (83-108) mmHg ABG HCO3 (21-25) mmol/L ABG Total CO2 (19-24) mmol/L ABG O2 Saturation (94-97) % Sodium 132 L (137-145) mmol/L BUN 35 H (7-17) mg/dL Creatinine 1.72 H (0.52-1.04) mg/dL POC Glucose (mg/dL) (75-99) mg/dL Calcium 8.0 L (8.4-10.2) mg/dL Lactate Dehydrogenase 1362 H (313-618) U/L C-Reactive Protein 131.8 H (<10.0) mg/L Crossmatch 04/21/20 04/21/20 Range/Units 06:30 10:31 WBC (3.8-10.6) k/uL RBC (3.80-5.40) m/uL Hgb (11.4-16.0) gm/dL Hct (34.0-46.0) % MCV (80.0-100.0) fL MCHC (31.0-37.0) g/dL RDW (11.5-15.5) % Plt Count (150-450) k/uL Lymphocytes # (Manual) (1.0-4.8) k/uL Fibrinogen (200-500) mg/dL D-Dimer (<0.60) mg/L FEU ABG pH (7.35-7.45) ABG pCO2 46 H (35-45) mmHg ABG pO2 51 L* (83-108) mmHg ABG HCO3 (21-25) mmol/L ABG Total CO2 27 H (19-24) mmol/L ABG O2 Saturation 89.1 L (94-97) % Sodium (137-145) mmol/L BUN (7-17) mg/dL Creatinine (0.52-1.04) mg/dL POC Glucose (mg/dL) (75-99) mg/dL Calcium (8.4-10.2) mg/dL Lactate Dehydrogenase (313-618) U/L C-Reactive Protein (<10.0) mg/L Crossmatch See Detail Assessment and Plan Assessment: This is a 64-year-old female with complex past medical history noted below who was sent to the ER from her dialysis center with abnormal lab work and a hemoglobin of 6.8. Patient was evaluated in the ER and admitted to the hospital for further management of her medical problems noted below. # Acute hypercapnic respiratory failure, related to COVID 19 currently on HLNC. Repeat blood gas shows improvement of CO2 level. May be attributed to opiates use an underlying COPD. Her morphine dose was decreased during last admission. Anesthesia will be consulted to turn off the pump, Morphine decreased yesterday. Low threshold for intubation. Continue Dexamethasone, Zinc. Plans for Remdesivir. Isolation and airborne/droplett precautions. # Acute on chronic anemia. Anemia of chronic disease. Hg 6.4 today. No signs of active bleeding. 1 unit PRBC today. We will continue to monitor closely. # End-stage renal disease on hemodialysis, recently started during last a dmission. Nephrology consulted. Continue dialysis as directed by nephrology # Acute toxo metabolic encephalopathy, secondary to above problems and possibly morphine use along with Xanax. Discontinued Xanax. Improving. # Troponin elevation, most likely non-thrombotic troponin leak secondary to underlying anemia and CKD. Twelve-lead EKG in the ER with no acute ischemic changes. Patient denies any chest pain. Cardiology consulted and no further recommendations at this time # Right upper extremity DVT, diagnosed during last admission. On anticoagulation with Eliquis # Underlying COPD, continue duo nebs every 6 hours # Chronic hypoxic respiratory failure on home O2 # Chronic back pain/chronic L1 compression fracture status post intrathecal morphine pump: Surgical wound jonathan will be removed today. Morphine dose was reduced during last admission 5 mg per day. We will need to turn off the pump # CODE STATUS: Patient is full code. Discussed with her daughter at bedside # GI prophylaxis with IV Protonix. DVT prophylaxis with Eliquis
[2020-04-21 17:22] LABS: HCT 25.4 % (34.0-46.0); HGB 7.8 gm/dL (11.4-16.0); Hypochromasia Marked; MCH 30.2 pg (25.0-35.0); MCHC 30.9 g/dL (31.0-37.0); Macrocytosis Slight; Mean Platelet Volume 9.3; Platelet Count 165 k/uL (150-450); Poikilocytosis Moderate; RBC 2.59 m/uL (3.80-5.40); RDW 15.6 % (11.5-15.5); WBC 5.6 k/uL (3.8-10.6)
[2020-04-21] MEDS: GABAPENTIN 100 MG CAP PO SCH (19:49)
[2020-04-22 05:34] LABS: Basophils % (A) 0 %; Eosinophils % (A) 0 %; HGB 7.5 gm/dL (11.4-16.0); Hypochromasia Marked; Lymphocytes # (A) 0.4 k/uL (1.0-4.8); Lymphocytes % (A) 6 %; MCH 30.1 pg (25.0-35.0); MCHC 31.3 g/dL (31.0-37.0); MCV 95.9 fL (80.0-100.0); Mean Platelet Volume 8.8; Monocytes # (A) 0.3 k/uL (0-1.0); Monocytes % (A) 4 %; Neutrophils # (A) 5.9 k/uL (1.3-7.7); Neutrophils % (A) 89 %; Platelet Count 172 k/uL (150-450); Poikilocytosis Moderate; RBC 2.51 m/uL (3.80-5.40); WBC 6.6 k/uL (3.8-10.6)
[2020-04-22 06:07] LABS: Albumin 2.5 g/dL (3.5-5.0); C Reactive Protein 63.4 mg/L (<10.0); Calcium 8.4 mg/dL (8.4-10.2); Potassium 3.6 mmol/L (3.5-5.1); Total Protein 5.4 g/dL (6.3-8.2)
[2020-04-22 06:49] LABS: D-Dimer 1.95 mg/L FEU (<0.60)
[2020-04-22] MEDS: ALBUTEROL HFA INHALER INHALATION SCH ×4 (07:32→20:29)
--- NOTE | 2020-04-22 07:42 | XR ---
EXAMINATION TYPE: XR chest 1V portable DATE OF EXAM: 04/22/2020 CLINICAL HISTORY: covid pna . TECHNIQUE: Portable frontal view of the chest. COMPARISON: 04/21/2020 chest radiograph FINDINGS: The cardiomediastinal silhouette is within normal limits for size. Diffuse interstitial op acities unchanged. No pleural effusion, or pneumothorax seen. The osseous structures are intact. IMPRESSION: Diffuse bilateral interstitial opacities are unchanged versus 04/21/2020. Findings are c ompatible with atypical pneumonia including Covid 19 viral infection.
[2020-04-22] MEDS: FLUCONAZOLE 100 MG TAB PO SCH (08:27)
[2020-04-22] MEDS: PANTOPRAZOLE 40 MG/10 ML VIAL IV SCH (08:27)
[2020-04-22] MEDS: APIXABAN 2.5 MG TABLET PO SCH ×2 (08:27→20:26)
[2020-04-22] MEDS: dexAMETHasone 2 MG TAB PO SCH (08:28)
[2020-04-22] MEDS: ZINC SULFATE 220 MG CAP PO SCH (08:28)
[2020-04-22] MEDS: ASCORBIC ACID 500 MG TAB PO SCH (08:28)
[2020-04-22] MEDS: CITALOPRAM HYDROBROMIDE 10 MG TAB PO SCH (08:28)
[2020-04-22] MEDS: POTASSIUM CHLORIDE ER 20 MEQ TAB.ER PO SCH ×2 (08:29→09:10)
--- NOTE | 2020-04-22 11:35 | PN ---
PROGRESS NOTE Patient is seen for followup for acute kidney injury, currently hemodialysis dependent. Patient continues to have no significant urine output. She was also significantly fluid overloaded this admission along with COVID-19 pneumonia. The patient has been started on Remdesivir, she has been dialyzed with significant ultrafiltration of about 12 L over the past 5 days. Volume status has improved. This morning patient is comfortable. She remains on high requirements of oxygen at 10 L with O2 saturations about 90%-93%. Patient is awake. She is tolerating oral diet. PHYSICAL EXAMINATION: Today, vital signs are reviewed. Blood pressure 131/76, heart rate 51 per minute, she is afebrile. Exam is discussed with the nursing staff. Edema is improved. Abdomen is nontender. LABS: Show sodium of 133, potassium 3.6, chloride 102, BUN 47, creatinine 1.9, hemoglobin 7.5. ASSESSMENT: 1. Acute kidney injury, hemodialysis dependent, renal failure maintained. Continue to maintain patient on dialysis. 2. Patient is seen on dialysis today. 3. COVID-19 pneumonia, started on Remdesivir. 4. Volume overload, significantly improved. We have removed about 12 L of fluid over the last 5 days. 5. Generalized debility. 6. Mental status changes, currently off the morphine. 7. Hypokalemia, status post replacement. 8. Anemia, no active bleeding noted, status post packed RBCs transfusion. Will maintain patient on Aranesp. PLAN: Add Aranesp, continue with daily dialysis for now and continue treatment for COVID-19 pneumonia. MMODL / IJN: [id number] /
[2020-04-22] MEDS: DARBEPOETIN ALFA 60 MCG/0.3 ML SYRINGE SQ SCH (12:04)
[2020-04-22 12:20] LABS: ABG Base Excess 0.6 mmol/L; ABG HCO3 25 mmol/L (21-25); ABG Oxygen Saturation 87.8 % (94-97); ABG PCO2 40 mmHg (35-45); ABG PH 7.41 (7.35-7.45); ABG TCO2 27 mmol/L (19-24); Allen Test Performed? Yes
[2020-04-22 12:25] LABS: ABG PO2 51 mmHg (83-108)
--- NOTE | 2020-04-22 13:13 | P.PN ---
Subjective Progress Note Date: 04/22/20 04/22/2020, the patient is in intensive care unit. She is currently on high flow oxygen at 10 L per minute nasal cannula. She underwent another session of hemodialysis today and subsequent blood gases showed a pH of 7.41 with a pCO2 of 40 and pO2 of 51 and this was on high flow oxygen 10 L. The patient is not having any respiratory distress. No signs of any CO2 narcosis. No signs of any hypercapnic respiratory failure. Note that I have reduced infusion from the morphine pump I am going to contact pain management to completely discontinue the morphine pump in this patient. The patient is declining to use BiPAP this morning. Infectious does need to be on BiPAP and she will do well with high flow oxygen. She is afebrile. Chest x-ray is consistent with diffuse but the pulmonary infiltrates consistent with acute coronavirus Covid 19 related pneumonia. The patient is receiving a combination of Decadron, and Remdesivir. The patient is afebrile. Hemoglobin is at 7.5 with a white cell count of 6.6. As far as the inflammatory markers, the patient's CRP level is down to 63 from a baseline of 131, ferritin level is 1563, LDH level is slightly elevated from 1362 and the updated level is at 1566. The baseline creatinine today's at 1.9 with a BUN of 47. No other significant events overnight. She seems to be quite alert and awake on today's evaluation. Denies having any complaints other than some overall global weakness. No nausea. No vomiting. No emesis. No chest pain. Objective - Vital Signs Vital signs: Vital Signs Temp 97.5 F L 04/22/20 13:01 Pulse 49 L 04/22/20 13:01 Resp 18 04/22/20 13:01 BP 121/67 04/22/20 13:01 Pulse Ox 91 L 04/22/20 13:00 Intake & Output 04/21/20 04/22/20 04/22/20 18:59 06:59 18:59 Intake Total 560 Output Total 3500 0 3300 Balance -2940 0 -3300 Weight 88.9 kg Intake: Intake, IV Titration 250 Amount Remdesivir (Eua) 100 mg 250 In Sodium Chloride 0.9% 250 ml @ 250 mls/hr IVPB DAILY@1400 [facility] Rx#: [id number] Blood Product 310 Rc Pheresis As-3 Unit 310 [id number] Output: Urine 0 0 0 Hemodialysis 3500 3300 Other: # Bowel Movements 1 1 - Exam Gen. appearance the patient is awake, somnolent and lethargic but arousable. The patient is tolerating high flow oxygen 10 L per minute nasal cannula and FiO2 being titrated to maintain a saturation above 90%. Head exam was generally normal. There was no scleral icterus or corneal arcus. Mucous membranes were moist. Neck was supple and without jugular venous distension, thyromegaly, or carotid bruits. Carotids were easily palpable bilaterally. There was no adenopathy. Lungs sounds are diminished bilaterally otherwise clear.there are some crackles in lung bases bilaterally and the breath sounds Heart exam revealed the PMI to be normally situated and sized. The rhythm was regular and no extrasystoles were noted during several minutes of auscultation. The first and second heart sounds were normal and physiologic splitting of the second heart sound was noted. There were no murmurs, rubs, clicks, or gallops. Abdominal exam revealed normal bowel sounds. The abdomen was soft, non-tender, and without masses, organomegaly, or appreciable enlargement of the abdominal aorta. The incision over the right abdominal wall is dry clean and intact and there is no active drainage at this point in time. the patient has a triple- lumen catheter in the right femoral vein examination of the extremities revealed easily palpable radial, femoral and pedal pulses. There was no cyanosis, clubbing or and the patient is developing some edema in all 4 extremities more so in the upper extremities bilaterally. Examination of the skin revealed no evidence of significant rashes, suspicious appearing nevi or other concerning lesions. Neurologically the patient is awake and communicating. She is moving all 4 extremities upon stimulation painful stimuli. No focal neurological deficit at this point in time. - Labs CBC & Chem 7: 04/22/20 05:15 04/22/20 05:15 Labs: Abnormal Lab Results - Last 24 Hours (Table) 04/17/20 04/21/20 04/21/20 Range/Units 12:34 06:30 17:04 RBC 2.59 L (3.80-5.40) m/uL Hgb 7.8 L (11.4-16.0) gm/dL Hct 25.4 L (34.0-46.0) % MCHC 30.9 L (31.0-37.0) g/dL RDW 15.6 H (11.5-15.5) % Lymphocytes # (1.0-4.8) k/uL Fibrinogen (200-500) mg/dL D-Dimer (<0.60) mg/L FEU ABG pO2 (83-108) mmHg ABG Total CO2 (19-24) mmol/L ABG O2 Saturation (94-97) % Sodium (137-145) mmol/L BUN (7-17) mg/dL Creatinine (0.52-1.04) mg/dL Glucose (74-99) mg/dL Ferritin (10.0-291.0) ng/mL AST (14-36) U/L ALT (4-34) U/L Alkaline Phosphatase (38-126) U/L Lactate Dehydrogenase (313-618) U/L C-Reactive Protein (<10.0) mg/L Total Protein (6.3-8.2) g/dL Albumin (3.5-5.0) g/dL Crossmatch See Detail See Detail 04/22/20 04/22/20 04/22/20 Range/Units 05:15 05:15 05:15 RBC 2.51 L (3.80-5.40) m/uL Hgb 7.5 L (11.4-16.0) gm/dL Hct 24.0 L (34.0-46.0) % MCHC (31.0-37.0) g/dL RDW 16.0 H (11.5-15.5) % Lymphocytes # 0.4 L (1.0-4.8) k/uL Fibrinogen 551 H (200-500) mg/dL D-Dimer 1.95 H (<0.60) mg/L FEU ABG pO2 (83-108) mmHg ABG Total CO2 (19-24) mmol/L ABG O2 Saturation (94-97) % Sodium 133 L (137-145) mmol/L BUN 47 H (7-17) mg/dL Creatinine 1.90 H (0.52-1.04) mg/dL Glucose 111 H (74-99) mg/dL Ferritin 1563.0 H (10.0-291.0) ng/mL AST 56 H (14-36) U/L ALT 44 H (4-34) U/L Alkaline Phosphatase 139 H (38-126) U/L Lactate Dehydrogenase 1566 H (313-618) U/L C-Reactive Protein 63.4 H (<10.0) mg/L Total Protein 5.4 L (6.3-8.2) g/dL Albumin 2.5 L (3.5-5.0) g/dL Crossmatch 04/22/20 Range/Units 12:08 RBC (3.80-5.40) m/uL Hgb (11.4-16.0) gm/dL Hct (34.0-46.0) % MCHC (31.0-37.0) g/dL RDW (11.5-15.5) % Lymphocytes # (1.0-4.8) k/uL Fibrinogen (200-500) mg/dL D-Dimer (<0.60) mg/L FEU ABG pO2 51 L* (83-108) mmHg ABG Total CO2 27 H (19-24) mmol/L ABG O2 Saturation 87.8 L (94-97) % Sodium (137-145) mmol/L BUN (7-17) mg/dL Creatinine (0.52-1.04) mg/dL Glucose (74-99) mg/dL Ferritin (10.0-291.0) ng/mL AST (14-36) U/L ALT (4-34) U/L Alkaline Phosphatase (38-126) U/L Lactate Dehydrogenase (313-618) U/L C-Reactive Protein (<10.0) mg/L Total Protein (6.3-8.2) g/dL Albumin (3.5-5.0) g/dL Crossmatch Assessment and Plan Plan: 1 acute on top of chronic hypoxic and hypercapnic hypercapnic respiratory failure, CO2 narcosis . The patient is being treated for an acute Covid 19 related pneumonia. The blood gases from today shows hypoxic respiratory failure and the patient is currently on 10 L. No significant hypercapnia with CO2 retention. 2 Acute COVID 19 infection, and secondary Covid 19 related pneumonia 3 acute kidney injury without any significant recovery and a patient is currently on hemodialysis. The last session of hemodialysis was this morning. 4 COPD 5 chronic back pain and the patient has a morphine pain pump placement and the pump was reduced down to 1.5 mg daily basis of morphine, recommend discontinuing the morphine pump infusion 6 acute shock liver, recovered 7 chronic back pain pain and the patient has a morphine pain pump in place, currently on a morphine dose of 1.5 mg over 24 hours, the reduction in those was done yesterday. 8 previous history of CVA without any major neurologic deficits 9 hypertension 10 previous history of syncope 11 chronic back pain with previous history of back surgery in addition to degenerative spine disease in addition to spondylolisthesis and compression fracture 12 smoker 13 hypertension 14 hyperlipidemia 15 acid reflux 16 thrombocytopenia, stable, the patient's counts are on the rise. 17 questionable cholecystitis with some pericholecystic fluid and the patient had abnormal LFTs which ultimately improved. Alkaline phosphatase is down to 140. Bilirubin is not elevated and the patient is not having any right upper quadrant pain or tenderness. This issue was addressed during her latest hospitalization the patient was not found to be a surgical candidate for now. 18 acute DVT in the right IJ and brachial vein and the patient has superficial thrombosis in the cephalic vein and the patient was kept on anticoagulation. the patient is currently on Eliquis 2.5 mg twice a day 19 acute on chronic anemia with drop in hemoglobin of 6.4 without evidence of any acute bleeding, the patient received a unit of packed RBC and the patient's hemoglobin is up to 7.5 Plan the patient had another session of hemodialysis Discontinue the BiPAP and utilize high flow oxygen to maintain a saturation above 90% continue the patient on a combination of oral Decadron and Remdesivir. The patient has impaired renal function and currently she is on dialysis and there are no signs of improvement in the renal function. We will closely monitor the hepatitic function as the patient is taken his medication. The patient also on Decadron 6 mg on a daily basis. Continue anticoagulation with Eliquis Continue BiPAP for respiratory support if needed. The patient has declined us ing the BiPAP for now as the patient is feeling well on high flow oxygen at 10 L per minute nasal cannula. . The morphine infusion rate has been reduced without any major signs of withdrawal, I am going to recommend pain services to discontinue the morphine infusion pump. We'll continue monitoring this patient in intensive care unit and further, this is to follow based on her progress. Condition is critical at this point in time.
--- NOTE | 2020-04-22 13:47 | P.PN ---
Progress Note - Text Progress Note Date: 04/22/20 I was requested that we decrease the pain pump to a minimum. I discussed this with the [employer] rep was advised him to decrease to the minimum rate setting. I done that today. We need to restart the pump at some point over the next few days and see if it's actually working. There is a chance that the pump may not restart. May need to be interrogated prior to the patient going home. At this point I would recommend she use hydromorphone 0.5 mg every 2-4 hours as needed for analgesia. I would avoid morphine due to her kidney failure. Subhash Reyes MD
[2020-04-22] MEDS: REMDESIVIR (EUA) 100 MG in SODIUM CHLORIDE 0.9% 250 ML IVPB SCH (15:48)
--- NOTE | 2020-04-22 17:36 | P.PN ---
Progress Note - Text Progress Note Date: 04/22/20 Chief Complaint: Tired Hospital course: Patient is 64-year-old female, - family doctor is Dr. pam Baker. Chronic stable medical conditions include chronic pain currently on a morphine pump , hypertension, CHF, and prior stroke . Recently in the hospital from March 28 through April 13. Admitted with-acute metabolic encephalopathy felt to be multifactorial, severe ischemic hepatitis from hypotension, acute kidney injury, likely ATN started on hemodialysis, septic shock, acute hypoxic and hypercapnic respiratory failure, metabolic and respiratory acidosis, COPD exacerbation. Empirically put on antibiotics source of infection unclear. Morphine dose in the pain pump decreased by Dr. Vee.patient felt to have cholecystitis. because of being clinically unstable decided not to proceed with any surgery. Patient responded to antibiotics.Doppler ultrasound confirmed DVT in the right upper extremity. Started on IV heparin. Then switch to eliquis. Patient advised to go to rehab. Patient and daughter decided to take her home. Patient now readmitted on April 17. Admitted with-acute hypoxic and hypercapnic respiratory failure, related to acute COVID 19 pneumonia, acute kidney injury. Started on hemodialysis. Placed on morphine drip. Received a unit of blood. Requiring BiPAP. [id number] 10 L nasal cannula. Tired. Had about 25% of lunch. Tired. Review of systems: Was done for constitutional, cardiovascular, GI, pulmonary. relevant finding as above Active Medications Albuterol Sulfate (Albuterol Hfa Inhaler) 2 puff INHALATION RT-QID [facility] Last Admin: 04/22/20 15:16 Dose: 2 puff Documented by: Apixaban (Apixaban 2.5 Mg Tablet) 2.5 mg PO BID [facility] Last Admin: 04/22/20 08:27 Dose: 2.5 mg Documented by: Ascorbic Acid (Ascorbic Acid 500 Mg Tab) 500 mg PO DAILY [facility] Last Admin: 04/22/20 08:28 Dose: 500 mg Documented by: Citalopram Hydrobromide (Citalopram Hydrobromide 10 Mg Tab) 10 mg PO DAILY [facility] Last Admin: 04/22/20 08:28 Dose: 10 mg Documented by: Darbepoetin [place] (Darbepoetin [place] 60 Mcg/0.3 Ml Syringe) 60 mcg SQ Q7D [facility] Last Admin: 04/22/20 12:04 Dose: 60 mcg Documented by: Dexamethasone (Dexamethasone 2 Mg Tab) 6 mg PO DAILY [facility] Stop: 04/29/20 09:01 Last Admin: 04/22/20 08:28 Dose: 6 mg Documented by: Fluconazole (Fluconazole 100 Mg Tab) 100 mg PO DAILY [facility] Last Admin: 04/22/20 08:27 Dose: 100 mg Documented by: Gabapentin (Gabapentin 100 Mg Cap) 100 mg PO HS [facility] Last Admin: 04/21/20 19:49 Dose: 100 mg Documented by: Hydromorphone HCl (Hydromorphone 0.5 Mg/0.5 Ml Syringe) 0.5 mg IM Q2HR PRN PRN Reason: Pain Remdesivir 100 mg/ Sodium (Chloride) 250 mls @ 250 mls/hr IVPB DAILY@1400 [facility] Stop: 04/25/20 14:59 Last Admin: 04/22/20 15:48 Dose: 250 mls/hr Documented by: Naloxone HCl (Naloxone 0.4 Mg/Ml 1 Ml Vial) 0.2 mg IV Q2M PRN PRN Reason: Opioid Reversal Pantoprazole Sodium (Pantoprazole 40 Mg/10 Ml Vial) 40 mg IV DAILY [facility] Last Admin: 04/22/20 08:27 Dose: 40 mg Documented by: Ropinirole HCl (Ropinirole Hcl 1 Mg Tab) 1 mg PO [facility] Last Admin: 04/21/20 19:49 Dose: 1 mg Documented by: Zinc Sulfate (Zinc Sulfate 220 Mg Cap) 220 mg PO DAILY [facility] Last Admin: 04/22/20 08:28 Dose: 220 mg Documented by: Physical examination: VITAL SIGNS: 97.6, 67, 26, 102/50, 3% on 10 L high flow oxygen GENERAL: Laying in bed-tired EYES: Pupils equal. Conjunctiva pale. List x-ray exam as per sign language interpreter and nursing INVESTIGATIONS, reviewed in the clinical context: White count 6.6 hemoglobin 7.5. D-dimer 1.95in 3.6 creatinine 1.90 ferritin 1563 LDH 1566 CRP 63 Previous testing including from last admission Hepatitis B surface antigen, core IgM antibody, hepatitis C IgG antibody all nonreactive Hepatitis A IgM antibody nonreactive Doppler-DVT IN THE JUGULAR VEIN AND THE BRACHIAL VEIN. SUPERFICIAL THROMBUS IN THE CEPHALIC VEIN. renal function is normal in December 2018 Assessment: -Acute on chronic hypoxic and hypercapnic respiratory failure from COVID 19 pneumonia -Acute COVID 19 pneumonia -Acute metabolic encephalopathy. In the setting of acute renal failure patients on Neurontin [place] Seroquel Xanax Requip and viibryd. Received Narcan -improved -Chronic pain syndrome with a morphine pain pump that for relocated from the spine to the anterior abdominal wall recently-followed by Dr. bedolla, -Severe ischemic hepatitis from hypotension-improving -Acute kidney injury likely ATN -started on hemodialysis March 30-slow to respond -Chronic L1 compression fracture -Acute hypoxic and hypercapnic respiratory failure responding to now on nasal cannula -Mixed metabolic and respiratory acidosis with -Chronic nicotine dependence, patient is a cigarette smoker -Acute COPD exacerbation in a current smoker -Essential hypertension- -Acute DVT in the right jugular vein and brachial vein. Superficial thrombus in the cephalic vein. On eliquis -Recent acute shock liver-recovered Plan: Reason the ICU. On high flow oxygen 10 L. Currently on eliquis, Celexa, dexamethasone, Neurontin, IV Remdesivir, Requip, zinc. Follow with pulmonary and nephrology.
[2020-04-22] MEDS: GABAPENTIN 100 MG CAP PO SCH (20:26)
[2020-04-22] MEDS: HYDROmorphone 0.5 MG/0.5 ML SYRINGE IM PRN (23:46)
[2020-04-23 05:13] LABS: Basophils # (A) 0.1 k/uL (0-0.2); Basophils % (A) 1 %; Eosinophils % (A) 0 %; HCT 24.7 % (34.0-46.0); HGB 7.9 gm/dL (11.4-16.0); Hypochromasia Moderate; Lymphocytes # (A) 0.6 k/uL (1.0-4.8); Lymphocytes % (A) 6 %; MCH 30.1 pg (25.0-35.0); MCHC 31.8 g/dL (31.0-37.0); MCV 94.6 fL (80.0-100.0); Mean Platelet Volume 8.7; Monocytes # (A) 0.5 k/uL (0-1.0); Monocytes % (A) 5 %; Neutrophils # (A) 8.4 k/uL (1.3-7.7); Neutrophils % (A) 88 %; Platelet Count 166 k/uL (150-450); Poikilocytosis Moderate; RBC 2.61 m/uL (3.80-5.40); WBC 9.6 k/uL (3.8-10.6)
[2020-04-23 05:25] LABS: Albumin 2.6 g/dL (3.5-5.0); C Reactive Protein 61.2 mg/L (<10.0); Calcium 8.3 mg/dL (8.4-10.2); Potassium 4.1 mmol/L (3.5-5.1); Total Bilirubin 1.3 mg/dL (0.2-1.3); Total Protein 5.7 g/dL (6.3-8.2)
[2020-04-23 06:47] LABS: D-Dimer 3.67 mg/L FEU (<0.60)
[2020-04-23] MEDS: ALBUTEROL HFA INHALER INHALATION SCH ×4 (07:54→20:14)
[2020-04-23] MEDS: ASCORBIC ACID 500 MG TAB PO SCH (08:36)
[2020-04-23] MEDS: PANTOPRAZOLE 40 MG/10 ML VIAL IV SCH (08:36)
[2020-04-23] MEDS: FLUCONAZOLE 100 MG TAB PO SCH (08:37)
[2020-04-23] MEDS: APIXABAN 2.5 MG TABLET PO SCH ×2 (08:37→20:18)
[2020-04-23] MEDS: CITALOPRAM HYDROBROMIDE 10 MG TAB PO SCH (08:37)
[2020-04-23] MEDS: dexAMETHasone 2 MG TAB PO SCH (08:37)
[2020-04-23] MEDS: ZINC SULFATE 220 MG CAP PO SCH (08:37)
[2020-04-23] MEDS: ONDANSETRON 4 MG/2 ML VIAL IVP PRN (09:13)
--- NOTE | 2020-04-23 11:12 | PN ---
PROGRESS NOTE Patient is seen for followup for acute kidney injury, currently hemodialysis dependent. Patient has been dialyzed on a daily basis mostly for volume overload. She also has COVID-19 pneumonitis and IS maintained on treatment for COVID-19 pneumonia. Patient has been requiring large amounts of oxygen. She has had about 15 L of fluid removed over the past 6 days. She tolerated treatment fairly well yesterday with UF of about 3.3 L. Exam is discussed with nursing staff. The patient has been awake, she was nauseated this morning. She has been answering questions, following commands. She is lethargic but improved since admission. Blood pressure this morning was 113/69, heart rate 73 per minute, patient is afebrile. The rest of the exam is not performed. The patient has been moving all 4 extremities and following commands. LABS: Show sodium of 132, potassium 4.1, chloride 102, BUN 44, creatinine 1.53, hemoglobin 7.9 g/dL. ASSESSMENT: 1. Hemodialysis dependent acute kidney injury with no evidence of recovery. Patient has no significant urine output. She is maintained on daily dialysis, mostly for volume overload. 2. COVID-19 pneumonia, status post Remdesivir, scheduled to receive another dose today post dialysis. 3. Volume overload status post removal of about 15 L over the last 6 days since admission. We will plan for another 2-3 L today as tolerated. 4. Generalized debility. 5. Mental status changes associated with underlying infection as well as morphine, currently off of the morphine. A morphine pump was placed on her last admission prior to discharge. 6. Anemia, status post packed RBCs transfusion, maintained on Aranesp. No active bleeding noted currently. PLAN: Hemodialysis today and then again in a.m. UF of about 2-3 L today. MMODL / IJN: [id number] /
--- NOTE | 2020-04-23 13:09 | P.PN ---
Subjective Progress Note Date: 04/23/20 On today's evaluation of 04/23/2020, the patient is alert and awake. No signs of any CO2 narcosis. The patient's chest x-ray still the same and showing diffuse bilaterally pulmonary infiltrates consistent with colorectal related pneumonia. The patient is unable to tolerate BiPAP. The patient is tolerating 100% nonrebreather facemask. Once off the facemask, she is utilizing hyper- oxygen at 15 L per minute nasal cannula. She is day 3 of Remdesivir treatment without any side effects of any hepatic insufficiency. The patient got dialyzed yesterday. No dialysis is planned for today. Atelectatic discussion with the patient's daughter. CODE STATUS was again addressed with the family and the pa tient will be remaining full CODE STATUS.. The patient's hemoglobin is at 7.5. White cell count of 9.6. D-dimer is at 3.67 and the patient remains on Eliquis and 0.5 mg by mouth twice a day. In terms of inflammatory markers, the LDH level is at 2036. The patient's C-reactive protein is still elevated at 61.2. Creatinine is at 1.53 as the patient has dialysis-dependent renal failure. Total bilirubin is at 1.3. Calcium level 0.3. LFTs are slightly elevated and his abdomen elevated on a chronic basis. Objective - Vital Signs Vital signs: Vital Signs Temp 97.3 F L 04/23/20 12:00 Pulse 68 04/23/20 13:00 Resp 28 H 04/23/20 13:00 BP 126/61 04/23/20 13:00 Pulse Ox 97 04/23/20 13:00 Intake & Output 04/22/20 04/23/20 04/23/20 18:59 06:59 18:59 Intake Total 225 Output Total 3300 0 0 Balance -3300 0 225 Weight 96.5 kg 96.5 kg Intake: Oral 225 Output: Urine 0 0 0 Hemodialysis 3300 Other: Voiding Method Bedpan Incontinent # Voids 1 # Bowel Movements 1 1 - Exam Gen. appearance the patient is awake, somnolent and lethargic but arousable. The patient is tolerating high flow oxygen 10 L per minute nasal cannula and FiO2 being titrated to maintain a saturation above 90%. Head exam was generally normal. There was no scleral icterus or corneal arcus. Mucous membranes were moist. Neck was supple and without jugular venous distension, thyromegaly, or carotid bruits. Carotids were easily palpable bilaterally. There was no adenopathy. Lungs sounds are diminished bilaterally otherwise clear.there are some crackles in lung bases bilaterally and the breath sounds Heart exam revealed the PMI to be normally situated and sized. The rhythm was regular and no extrasystoles were noted during several minutes of auscultation. The first and second heart sounds were normal and physiologic splitting of the second heart sound was noted. There were no murmurs, rubs, clicks, or gallops. Abdominal exam revealed normal bowel sounds. The abdomen was soft, non-tender, and without masses, organomegaly, or appreciable enlargement of the abdominal aorta. The incision over the right abdominal wall is dry clean and intact and there is no active drainage at this point in time. the patient has a triple-l umen catheter in the right femoral vein examination of the extremities revealed easily palpable radial, femoral and pedal pulses. There was no cyanosis, clubbing or and the patient is developing some edema in all 4 extremities more so in the upper extremities bilaterally. Examination of the skin revealed no evidence of significant rashes, suspicious appearing nevi or other concerning lesions. Neurologically the patient is awake and communicating. She is moving all 4 extremities upon stimulation painful stimuli. No focal neurological deficit at this point in time. - Labs CBC & Chem 7: 04/23/20 04:45 04/23/20 04:45 Labs: Abnormal Lab Results - Last 24 Hours (Table) 04/23/20 04/23/20 04/23/20 Range/Units 04:45 04:45 05:20 RBC 2.61 L (3.80-5.40) m/uL Hgb 7.9 L (11.4-16.0) gm/dL Hct 24.7 L (34.0-46.0) % RDW 16.0 H (11.5-15.5) % Neutrophils # 8.4 H (1.3-7.7) k/uL Lymphocytes # 0.6 L (1.0-4.8) k/uL Fibrinogen 513 H (200-500) mg/dL D-Dimer 3.67 H (<0.60) mg/L FEU Sodium 132 L (137-145) mmol/L BUN 44 H (7-17) mg/dL Creatinine 1.53 H (0.52-1.04) mg/dL Glucose 104 H (74-99) mg/dL Calcium 8.3 L (8.4-10.2) mg/dL AST 66 H (14-36) U/L ALT 47 H (4-34) U/L Alkaline Phosphatase 159 H (38-126) U/L Lactate Dehydrogenase 2037 H (313-618) U/L C-Reactive Protein 61.2 H (<10.0) mg/L Total Protein 5.7 L (6.3-8.2) g/dL Albumin 2.6 L (3.5-5.0) g/dL Assessment and Plan Plan: 1 bilateral pneumonia secondary to Covid 19. The patient has a acute on top of chronic hypoxic and hypercapnic hypercapnic respiratory failure, CO2 narcosis . The acute hypercapnic component has recovered and the most recent blood gas showed improvement in the CO2 level and acid base status. The patient is being treated for an acute Covid 19 related pneumonia. The blood gases from today shows hypoxic respiratory failure and the patient is currently on 15 L. No significant hypercapnia with CO2 retention. The patient is also utilizing 100% nonrebreather facemask alternating with high flow oxygen. No signs of any significant respiratory distress. Nevertheless, the activation for no significant hypoxemia that has been noted to be related to acute Covid 19 related pneumonia. 2 Acute COVID 19 infection, and secondary Covid 19 related pneumonia, and the patient is day 3 of treatment with Remdesivir and the patient is also on Decadron. 3 acute kidney injury without any significant recovery and a patient is currently on hemodialysis. The last session of hemodialysis was this morning. 4 COPD 5 chronic back pain and the patient has a morphine pain pump placement and the pump was reduced down to 1.5 mg daily basis of morphine, recommend discontinuing the morphine pump infusion 6 acute shock liver, recovered 7 chronic back pain pain and the patient has a morphine pain pump in place, currently on a morphine dose of 1.5 mg over 24 hours, the reduction in those was done yesterday. 8 previous history of CVA without any major neurologic deficits 9 hypertension 10 previous history of syncope 11 chronic back pain with previous history of back surgery in addition to degenerative spine disease in addition to spondylolisthesis and compression fracture 12 smoker 13 hypertension 14 hyperlipidemia 15 acid reflux 16 thrombocytopenia, stable, the patient's counts are on the rise. 17 questionable cholecystitis with some pericholecystic fluid and the patient had abnormal LFTs which ultimately improved. Alkaline phosphatase is down to 140. Bilirubin is not elevated and the patient is not having any right upper quadrant pain or tenderness. This issue was addressed during her latest hospitalization the patient was not found to be a surgical candidate for now. The LFTs are being monitored as the patient is being treated also with antiviral regarding the slater virus Covid 19 infection. 18 acute DVT in the right IJ and brachial vein and the patient has superficial thrombosis in the cephalic vein and the patient was kept on anticoagulation. the patient is currently on Eliquis 2.5 mg twice a day 19 acute on chronic anemia and hemoglobin currently stable at 7.9 Plan Dialysis per nephrology Alternate between high flow oxygen and 100% nonrebreather facemask Continue treatment of slater virus Covid 19 infection/pneumonia. continue the patient on a combination of oral Decadron and Remdesivir. The patient has impaired renal function and currently she is on dialysis and there are no signs of improvement in the renal function. We will closely monitor the hepatitic function as the patient is taken his medication. The patient also on Decadron 6 mg on a daily basis. Continue anticoagulation with Eliquis I updated the family on the patient's condition. The CODE STATUS will remain falls. We'll continue monitoring this patient in intensive care unit and further, this is to follow based on her progress. Condition is critical at this point in time.
[2020-04-23] MEDS: HYDROmorphone 0.5 MG/0.5 ML SYRINGE IM PRN ×2 (15:39→20:19)
[2020-04-23] MEDS: REMDESIVIR (EUA) 100 MG in SODIUM CHLORIDE 0.9% 250 ML IVPB SCH (16:11)
[2020-04-23] MEDS: GABAPENTIN 100 MG CAP PO SCH (20:18)
--- NOTE | 2020-04-23 21:50 | P.PN ---
Progress Note - Text Progress Note Date: 04/23/20 Chief Complaint: Tired Hospital course: Patient is 64-year-old female, - family doctor is Dr. pam Baker. Chronic stable medical conditions include chronic pain currently on a morphine pump , hypertension, CHF, and prior stroke . Recently in the hospital from March 28 through April 13. Admitted with-acute metabolic encephalopathy felt to be multifactorial, severe ischemic hepatitis from hypotension, acute kidney injury, likely ATN started on hemodialysis, septic shock, acute hypoxic and hypercapnic respiratory failure, metabolic and respiratory acidosis, COPD exacerbation. Empirically put on antibiotics source of infection unclear. Morphine dose in the pain pump decreased by Dr. Vee.patient felt to have cholecystitis. because of being clinically unstable decided not to proceed with any surgery. Patient responded to antibiotics.Doppler ultrasound confirmed DVT in the right upper extremity. Started on IV heparin. Then switch to eliquis. Patient advised to go to rehab. Patient and daughter decided to take her home. Patient now readmitted on April 17. Admitted with-acute hypoxic and hypercapnic respiratory failure, related to acute COVID 19 pneumonia, acute kidney injury. Started on hemodialysis. Placed on morphine drip. Received a unit of blood. Requiring BiPAP. [id number]% nonrebreather. Awake. Following commands. Short of breath at rest. Chest congested. Decreased oral intake. Telemetry shows sinus rhythm. Patient was hemodialyzed today. Review of systems: Was done for constitutional, cardiovascular, GI, pulmonary. relevant finding as above Active Medications Albuterol Sulfate (Albuterol Hfa Inhaler) 2 puff INHALATION RT-QID [facility] Last Admin: 04/23/20 20:14 Dose: 2 puff Documented by: Apixaban (Apixaban 2.5 Mg Tablet) 2.5 mg PO BID [facility] Last Admin: 04/23/20 20:18 Dose: 2.5 mg Documented by: Ascorbic Acid (Ascorbic Acid 500 Mg Tab) 500 mg PO DAILY [facility] Last Admin: 04/23/20 08:36 Dose: 500 mg Documented by: Citalopram Hydrobromide (Citalopram Hydrobromide 10 Mg Tab) 10 mg PO DAILY [facility] Last Admin: 04/23/20 08:37 Dose: 10 mg Documented by: Darbepoetin Clinton (Darbepoetin Clinton 60 Mcg/0.3 Ml Syringe) 60 mcg SQ Q7D [facility] Last Admin: 04/22/20 12:04 Dose: 60 mcg Documented by: Dexamethasone (Dexamethasone 2 Mg Tab) 6 mg PO DAILY [facility] Stop: 04/29/20 09:01 Last Admin: 04/23/20 08:37 Dose: 6 mg Documented by: Fluconazole (Fluconazole 100 Mg Tab) 100 mg PO DAILY [facility] Last Admin: 04/23/20 08:37 Dose: 100 mg Documented by: Gabapentin (Gabapentin 100 Mg Cap) 100 mg PO [facility] Last Admin: 04/23/20 20:18 Dose: 100 mg Documented by: Hydromorphone HCl (Hydromorphone 0.5 Mg/0.5 Ml Syringe) 0.5 mg IM Q2HR PRN PRN Reason: Pain Last Admin: 04/23/20 20:19 Dose: 0.5 mg Documented by: Remdesivir 100 mg/ Sodium (Chloride) 250 mls @ 250 mls/hr IVPB DAILY@1400 [facility] Stop: 04/25/20 14:59 Last Admin: 04/23/20 16:11 Dose: 250 mls/hr Documented by: Naloxone HCl (Naloxone 0.4 Mg/Ml 1 Ml Vial) 0.2 mg IV Q2M PRN PRN Reason: Opioid Reversal Ondansetron HCl (Ondansetron 4 Mg/2 Ml Vial) 4 mg IVP Q6HR PRN PRN Reason: Nausea And Vomiting Last Admin: 04/23/20 09:13 Dose: 4 mg Documented by: Pantoprazole Sodium (Pantoprazole 40 Mg/10 Ml Vial) 40 mg IV DAILY [facility] Last Admin: 04/23/20 08:36 Dose: 40 mg Documented by: Ropinirole HCl (Ropinirole Hcl 1 Mg Tab) 1 mg PO [facility] Last Admin: 04/23/20 20:19 Dose: 1 mg Documented by: Zinc Sulfate (Zinc Sulfate 220 Mg Cap) 220 mg PO DAILY [facility] Last Admin: 04/23/20 08:37 Dose: 220 mg Documented by: Physical examination: VITAL SIGNS:98, 55, 22, 132 with 76, 95% on nonrebreather GENERAL: Laying in bed-tired, awake EYES: Pupils equal. Conjunctiva pale. Psych: AO 3, more affect slightly anxious rest of physical exam as per home advisor and nursing INVESTIGATIONS, reviewed in the clinical context: white count 6 hemoglobin 7.9 platelets 166bun 44 creatinine 1.53 LDH 2037 CRP 61.2 Previous testing including from last admission Hepatitis B surface antigen, core IgM antibody, hepatitis C IgG antibody all nonreactive Hepatitis A IgM antibody nonreactive Doppler-DVT IN THE JUGULAR VEIN AND THE BRACHIAL VEIN. SUPERFICIAL THROMBUS IN THE CEPHALIC VEIN. renal function is normal in December 2018 Assessment: -Acute on chronic hypoxic and hypercapnic respiratory failure from COVID 19 pneumonia-slow to respond -Acute COVID 19 pneumonia -Chronic pain syndrome with a morphine pain pump that for relocated from the spine to the anterior abdominal wall recently-followed by Dr. bedolla, -Severe ischemic hepatitis from hypotension-improving -Acute kidney injury likely ATN -started on hemodialysis March 30-slow to respond -Chronic L1 compression fracture -Mixed metabolic and respiratory acidosis with -Chronic nicotine dependence, patient is a cigarette smoker -Acute COPD exacerbation in a current smoker -Essential hypertension- -Acute DVT in the right jugular vein and brachial vein. Superficial thrombus in the cephalic vein. On eliquis -Recent acute shock liver-recovered Plan: ICU. 100% nonrebreather. Currently on eliquis, Celexa, dexamethasone, Neurontin, IV Remdesivir, Requip, zinc. Follow closely. Discussed with the patient.
[2020-04-24 04:30] LABS: Albumin 2.5 g/dL (3.5-5.0); Calcium 8.2 mg/dL (8.4-10.2); Potassium 3.8 mmol/L (3.5-5.1); Total Bilirubin 1.5 mg/dL (0.2-1.3); Total Protein 5.5 g/dL (6.3-8.2)
[2020-04-24] MEDS: HYDROmorphone 0.5 MG/0.5 ML SYRINGE IM PRN ×3 (04:36→20:52)
--- NOTE | 2020-04-24 06:52 | XR ---
EXAMINATION TYPE: XR chest 1V portable DATE OF EXAM: 04/24/2020 CLINICAL HISTORY: Difficulty breathing and pneumonia progress study. TECHNIQUE: Single AP portable semiupright view of the chest is obtained. COMPARISON: Chest x-ray from 2 days earlier and older studies. FINDINGS: Stable large bore right internal jugular central venous dialysis catheter. Persistent reticular and alveolar opacities bilaterally fairly diffusely with relative sparing of the right lung base. Cardiac silhouette size stable and within normal limits. No pleural effusion or pne umothorax seen bilaterally. Osseous structures are intact. IMPRESSION: Persistent bilateral multifocal alveolar and interstitial edema and/or infiltrates. No s ignificant change from most recent x-ray.
[2020-04-24] MEDS: ALBUTEROL HFA INHALER INHALATION SCH ×4 (08:48→21:35)
[2020-04-24] MEDS: ASCORBIC ACID 500 MG TAB PO SCH (08:55)
[2020-04-24] MEDS: dexAMETHasone 2 MG TAB PO SCH (08:55)
[2020-04-24] MEDS: ZINC SULFATE 220 MG CAP PO SCH (08:56)
[2020-04-24] MEDS: PANTOPRAZOLE 40 MG/10 ML VIAL IV SCH (08:56)
[2020-04-24] MEDS: FLUCONAZOLE 100 MG TAB PO SCH (08:56)
[2020-04-24] MEDS: ONDANSETRON 4 MG/2 ML VIAL IVP PRN ×2 (08:56→17:57)
[2020-04-24] MEDS: APIXABAN 2.5 MG TABLET PO SCH ×2 (08:56→20:49)
[2020-04-24] MEDS: CITALOPRAM HYDROBROMIDE 10 MG TAB PO SCH (08:56)
--- NOTE | 2020-04-24 09:42 | P.PN ---
Subjective Patient is seen in follow-up for acute kidney injury, currently hemodialysis dependent. She underwent dialysis on a daily basis this past week for volume overload. Currently being treated for COVID19 pneumonia. She is on a nonrebreather. Partner she's been awake and alert. Vital signs stable. Blood pressure in the systolic 130s. Currently a nonrebreather. No gross edema noted. Exam discussed with the nurse. Objective - Vital Signs Vital signs: Vital Signs Temp 98.2 F 04/24/20 08:00 Pulse 84 04/24/20 09:00 Resp 23 04/24/20 09:00 BP 128/62 04/24/20 09:00 Pulse Ox 97 04/24/20 09:00 Intake & Output 04/23/20 04/24/20 04/24/20 18:59 06:59 18:59 Intake Total 525 Output Total 0 2000 0 Balance 525 -2000 0 Weight 96.5 kg Intake: Oral 525 Output: Urine 0 0 0 Stool 0 0 Hemodialysis 2000 Other: Voiding Method Bedpan Incontinent Incontinent Incontinent # Voids 1 1 # Bowel Movements 1 - Labs CBC & Chem 7: 04/23/20 04:45 04/24/20 03:54 Labs: Abnormal Lab Results - Last 24 Hours (Table) 04/24/20 Range/Units 03:54 Sodium 133 L (137-145) mmol/L BUN 45 H (7-17) mg/dL Creatinine 1.67 H (0.52-1.04) mg/dL Glucose 121 H (74-99) mg/dL Calcium 8.2 L (8.4-10.2) mg/dL Total Bilirubin 1.5 H (0.2-1.3) mg/dL AST 56 H (14-36) U/L ALT 43 H (4-34) U/L Alkaline Phosphatase 175 H (38-126) U/L Total Protein 5.5 L (6.3-8.2) g/dL Albumin 2.5 L (3.5-5.0) g/dL Assessment and Plan Plan: Assessment: 1. Acute kidney injury, currently hemodialysis dependent secondary to nonrecovered ATN from severe sepsis last admission. 2. Volume overload. Improved with daily ultrafiltration. 3. COVID-19 pneumonia maintained on remdesivir, zinc and steroids. 4. Altered mental status secondary to infection and morphine. Improved. 5. Anemia secondary to underlying renal disease maintained on Aranesp. Status post blood transfusion this admission. No active bleeding. Plan: Currently seen while undergoing hemodialysis. Next treatment on Sunday. Add Lasix. Accurate I's and O's. Check phosphorus level.
[2020-04-24 10:26] LABS: C Reactive Protein 81.7 mg/L (<10.0); Phosphorus 2.1 mg/dL (2.5-4.5)
--- NOTE | 2020-04-24 12:25 | P.PN ---
Subjective Progress Note Date: 04/24/20 04/24/2020, the patient is being seen for a follow-up. The patient remains hypoxic respiratory failure and the patient remains on nonrebreather facemask this pain and alternatives were high flow oxygen at 15 L per minute. Saturation is above 90%. The chest x-ray findings are essentially stable and showing persistent bilateral pulmonary infiltrates and it's consistent with multifocal alveolar interstitial infiltrates bilaterally and there is no significant change compared to yesterday. The patient is undergoing daily dialysis. She is producing some urine output and is going to be measured more accurately. The patient has taken treatment coronavirus COVID 19 pneumonia and the patient is on a day 3 of Remdesivir. The currently on is at 45 with a creatinine of 1.6. A electrodes are all within normal limits. She is a bit lethargic and weak. She is communicating. Altered mentation. No significant back pain. No signs of any CO2 narcosis. In terms of the inflammatory markers, the patient's C- reactive protein is at 81 which is higher compared to yesterday. The LDH is also elevated at 3064 which is again higher compared to yesterday. She is afebrile. I was at 2.29 and the patient remains on long-term medical condition with Eliquis. Note that the patient is also afebrile. CODE STATUS remains full. Objective - Vital Signs Vital signs: Vital Signs Temp 98.2 F 04/24/20 12:00 Pulse 61 04/24/20 12:00 Resp 14 04/24/20 12:00 BP 143/75 04/24/20 12:00 Pulse Ox 91 L 04/24/20 12:00 Intake & Output 04/23/20 04/24/20 04/24/20 18:59 06:59 18:59 Intake Total 525 100 Output Total 0 1999 1999 Balance 525 -2000 -1900 Weight 96.5 kg Intake: Oral 525 100 Output: Urine 0 0 0 Stool 0 0 Hemodialysis 1999 1999 Other: Voiding Method Bedpan Incontinent Incontinent Incontinent # Voids 1 1 # Bowel Movements 1 - Exam Gen. appearance the patient is awake, somnolent and lethargic but arousable. The patient is tolerating high flow oxygen 10 L per minute nasal cannula and FiO2 being titrated to maintain a saturation above 90%. Head exam was generally normal. There was no scleral icterus or corneal arcus. Mucous membranes were moist. Neck was supple and without jugular venous distension, thyromegaly, or carotid bruits. Carotids were easily palpable bilaterally. There was no adenopathy. Lungs sounds are diminished bilaterally otherwise clear.there are some crackles in lung bases bilaterally and the breath sounds Heart exam revealed the PMI to be normally situated and sized. The rhythm was regular and no extrasystoles were noted during several minutes of auscultation. The first and second heart sounds were normal and physiologic splitting of the second heart sound was noted. There were no murmurs, rubs, clicks, or gallops. Abdominal exam revealed normal bowel sounds. The abdomen was soft, non-tender, and without masses, organomegaly, or appreciable enlargement of the abdominal aorta. The incision over the right abdominal wall is dry clean and intact and there is no active drainage at this point in time. the patient has a triple- lumen catheter in the right femoral vein examination of the extremities revealed easily palpable radial, femoral and pedal pulses. There was no cyanosis, clubbing or and the patient is developing some edema in all 4 extremities more so in the upper extremities bilaterally. Examination of the skin revealed no evidence of significant rashes, suspicious appearing nevi or other concerning lesions. Neurologically the patient is awake and communicating. She is moving all 4 extremities upon stimulation painful stimuli. No focal neurological deficit at this point in time. - Labs CBC & Chem 7: 04/23/20 04:45 04/24/20 03:54 Labs: Abnormal Lab Results - Last 24 Hours (Table) 04/24/20 04/24/20 04/24/20 Range/Units 03:54 10:00 10:00 D-Dimer 8.29 H (<0.60) mg/L FEU Sodium 133 L (137-145) mmol/L BUN 45 H (7-17) mg/dL Creatinine 1.67 H (0.52-1.04) mg/dL Glucose 121 H (74-99) mg/dL Calcium 8.2 L (8.4-10.2) mg/dL Phosphorus 2.1 L (2.5-4.5) mg/dL Total Bilirubin 1.5 H (0.2-1.3) mg/dL AST 56 H (14-36) U/L ALT 43 H (4-34) U/L Alkaline Phosphatase 175 H (38-126) U/L Lactate Dehydrogenase 3064 H (313-618) U/L C-Reactive Protein 81.7 H (<10.0) mg/L Total Protein 5.5 L (6.3-8.2) g/dL Albumin 2.5 L (3.5-5.0) g/dL Assessment and Plan Plan: 1 acute bilateral pneumonia secondary to Covid 19. The patient has a acute on top of chronic hypoxic and hypercapnic hypercapnic respiratory failure, CO2 narcosis . The acute hypercapnic component has recovered and the most recent blood gas showed improvement in the CO2 level and acid base status. The patient is being treated for an acute Covid 19 related pneumonia. The blood gases from today shows hypoxic respiratory failure and the patient is currently on 15 L. No significant hypercapnia with CO2 retention. The patient is also utilizing 100% nonrebreather facemask alternating with high flow oxygen. No signs of any significant respiratory distress. Nevertheless, the activation for no significant hypoxemia that has been noted to be related to acute Covid 19 related pneumonia. The patient is currently on a treatment with Remdesivir and the patient is on day #3 of treatment. The patient is on Decadron. Chest x-ray findings are still stable. No interval change and oxygenation. LDH and C- reactive protein are still elevated. 2 Acute COVID 19 infection, and secondary Covid 19 related pneumonia, and the patient is day 3 of treatment with Remdesivir and the patient is also on Decadron. 3 acute kidney injury without any significant recovery and a patient is currently on hemodialysis. The last session of hemodialysis was this morning. 4 COPD 5 chronic back pain and the patient has a morphine pain pump placement and the pump was reduced down to 1.5 mg daily basis of morphine, recommend discontinuing the morphine pump infusion 6 acute shock liver, recovered 7 chronic back pain pain and the patient has a morphine pain pump in place, currently on a morphine dose of 1.5 mg over 24 hours, the reduction in those was done yesterday. 8 previous history of CVA without any major neurologic deficits 9 hypertension 10 previous history of syncope 11 chronic back pain with previous history of back surgery in addition to degenerative spine disease in addition to spondylolisthesis and compression fracture 12 smoker 13 hypertension 14 hyperlipidemia 15 acid reflux 16 thrombocytopenia, stable, the patient's counts are on the rise. 17 questionable cholecystitis with some pericholecystic fluid and the patient had abnormal LFTs which ultimately improved. Alkaline phosphatase is down to 140. Bilirubin is not elevated and the patient is not having any right upper quadrant pain or tenderness. This issue was addressed during her latest hospitalization the patient was not found to be a surgical candidate for now. The LFTs are being monitored as the patient is being treated also with antiviral regarding the slater virus Covid 19 infection. 18 acute DVT in the right IJ and brachial vein and the patient has superficial t hrombosis in the cephalic vein and the patient was kept on anticoagulation. the patient is currently on Eliquis 2.5 mg twice a day 19 acute on chronic anemia and hemoglobin currently stable at 7.9 Plan Dialysis per nephrology, the patient is being dialyzed on a daily basis Alternate between high flow oxygen 15 L and 100% nonrebreather facemask Continue treatment of slater virus Covid 19 infection/pneumonia. continue the patient on a combination of oral Decadron and Remdesivir. The patient has impaired renal function and currently she is on dialysis and there are no signs of improvement in the renal function. We will closely monitor the hepatitic function as the patient is taken his medication. The patient also on Decadron 6 mg on a daily basis. Continue anticoagulation with Eliquis. No change in her condition since yesterday and the patient's oxygenation essentially the same and a chest x-ray findings and essentially the same and I will complete a five-day course of Remdesivir treatment I updated the family on the patient's condition. The CODE STATUS will remain falls. We'll continue monitoring this patient in intensive care unit and further, this is to follow based on her progress. Condition is critical at this point in time.
[2020-04-24] MEDS: FUROSEMIDE 80 MG TAB PO SCH (15:38)
[2020-04-24] MEDS: REMDESIVIR (EUA) 100 MG in SODIUM CHLORIDE 0.9% 250 ML IVPB SCH (15:58)
[2020-04-24] MEDS: GABAPENTIN 100 MG CAP PO SCH (20:49)
--- NOTE | 2020-04-24 22:22 | P.PN ---
Progress Note - Text Progress Note Date: 04/24/20 Chief Complaint: Tired Hospital course: Patient is 64-year-old female, - family doctor is Dr. pam Baker. Chronic stable medical conditions include chronic pain currently on a morphine pump , hypertension, CHF, and prior stroke . Recently in the hospital from March 28 through April 13. Admitted with-acute metabolic encephalopathy felt to be multifactorial, severe ischemic hepatitis from hypotension, acute kidney injury, likely ATN started on hemodialysis, septic shock, acute hypoxic and hypercapnic respiratory failure, metabolic and respiratory acidosis, COPD exacerbation. Empirically put on antibiotics source of infection unclear. Morphine dose in the pain pump decreased by Dr. Vee.patient felt to have cholecystitis. because of being clinically unstable decided not to proceed with any surgery. Patient responded to antibiotics.Doppler ultrasound confirmed DVT in the right upper extremity. Started on IV heparin. Then switch to eliquis. Patient advised to go to rehab. Patient and daughter decided to take her home. Patient now readmitted on April 17. Admitted with-acute hypoxic and hypercapnic respiratory failure, related to acute COVID 19 pneumonia, acute kidney injury. Started on hemodialysis. Placed on morphine drip. Received a unit of blood. Requiring BiPAP. [id number] oatmeal for breakfast. Tired. Short of breath at rest. Congestive chest.. On nonrebreather.: Hemodialysis today. Review of systems: Was done for constitutional, cardiovascular, GI, pulmonary. relevant finding as above Active Medications Albuterol Sulfate (Albuterol Hfa Inhaler) 2 puff INHALATION RT-QID [facility] Last Admin: 04/24/20 21:35 Dose: 2 puff Documented by: Apixaban (Apixaban 2.5 Mg Tablet) 2.5 mg PO BID [facility] Last Admin: 04/24/20 20:49 Dose: 2.5 mg Documented by: Ascorbic Acid (Ascorbic Acid 500 Mg Tab) 500 mg PO DAILY [facility] Last Admin: 04/24/20 08:55 Dose: 500 mg Documented by: Citalopram Hydrobromide (Citalopram Hydrobromide 10 Mg Tab) 10 mg PO DAILY [facility] Last Admin: 04/24/20 08:56 Dose: 10 mg Documented by: Darbepoetin Clinton (Darbepoetin [place] 60 Mcg/0.3 Ml Syringe) 60 mcg SQ Q7D [facility] Last Admin: 04/22/20 12:04 Dose: 60 mcg Documented by: Dexamethasone (Dexamethasone 2 Mg Tab) 6 mg PO DAILY [facility] Stop: 04/29/20 09:01 Last Admin: 04/24/20 08:55 Dose: 6 mg Documented by: Fluconazole (Fluconazole 100 Mg Tab) 100 mg PO DAILY [facility] Last Admin: 04/24/20 08:56 Dose: 100 mg Documented by: Furosemide (Furosemide 80 Mg Tab) 80 mg PO BID@0900,1600 [facility] Last Admin: 04/24/20 15:38 Dose: 80 mg Documented by: Gabapentin (Gabapentin 100 Mg Cap) 100 mg PO [facility] Last Admin: 04/24/20 20:49 Dose: 100 mg Documented by: Hydromorphone HCl (Hydromorphone 0.5 Mg/0.5 Ml Syringe) 0.5 mg IM Q2HR PRN PRN Reason: Pain Last Admin: 04/24/20 20:52 Dose: 0.5 mg Documented by: Remdesivir 100 mg/ Sodium (Chloride) 250 mls @ 250 mls/hr IVPB DAILY@1400 [facility] Stop: 04/25/20 14:59 Last Admin: 04/24/20 15:58 Dose: 250 mls/hr Documented by: Naloxone HCl (Naloxone 0.4 Mg/Ml 1 Ml Vial) 0.2 mg IV Q2M PRN PRN Reason: Opioid Reversal Ondansetron HCl (Ondansetron 4 Mg/2 Ml Vial) 4 mg IVP Q6HR PRN PRN Reason: Nausea And Vomiting Last Admin: 04/24/20 17:57 Dose: 4 mg Documented by: Pantoprazole Sodium (Pantoprazole 40 Mg/10 Ml Vial) 40 mg IV DAILY [facility] Last Admin: 04/24/20 08:56 Dose: 40 mg Documented by: Ropinirole HCl (Ropinirole Hcl 1 Mg Tab) 1 mg PO [facility] Last Admin: 04/24/20 20:49 Dose: 1 mg Documented by: Zinc Sulfate (Zinc Sulfate 220 Mg Cap) 220 mg PO DAILY [facility] Last Admin: 04/24/20 08:56 Dose: 220 mg Documented by: Physical examination: VITAL SIGNS: 98.2, 61, 14, 143/75, 91% on nonrebreather GENERAL: Laying in bed-tired, awake EYES: Pupils equal. Conjunctiva pale. Psych: AO 3, more affect slightly anxious rest of physical exam as per race steward and nursing INVESTIGATIONS, reviewed in the clinical context: Potassium 3.8 bun 45 creatinine 1.67 LDH 3064 CRP 81.7 Chest x-ray from April 24-persistent infiltrates/edema white count 6 hemoglobin 7.9 platelets 166bun 44 creatinine 1.53 LDH 2036 CRP 61.2 Previous testing including from last admission Hepatitis B surface antigen, core IgM antibody, hepatitis C IgG antibody all nonreactive Hepatitis A IgM antibody nonreactive Doppler-DVT IN THE JUGULAR VEIN AND THE BRACHIAL VEIN. SUPERFICIAL THROMBUS IN THE CEPHALIC VEIN. renal function is normal in December 2018 Assessment: -Acute on chronic hypoxic and hypercapnic respiratory failure from COVID 19 pneumonia-slow to respond -Acute COVID 19 pneumonia -Chronic pain syndrome with a morphine pain pump that for relocated from the spine to the anterior abdominal wall recently-followed by Dr. bedolla, -Severe ischemic hepatitis from hypotension-improving -Acute kidney injury likely ATN -started on hemodialysis March 30-slow to respond -Chronic L1 compression fracture -Mixed metabolic and respiratory acidosis with -Chronic nicotine dependence, patient is a cigarette smoker -Acute COPD exacerbation in a current smoker -Essential hypertension- -Acute DVT in the right jugular vein and brachial vein. Superficial thrombus in the cephalic vein. On eliquis -Recent acute shock liver-recovered Plan: ICU. 100% nonrebreather. Currently on eliquis, Celexa, dexamethasone, Neurontin, IV Remdesivir, Requip, zinc. Prognosis guarded. Follow-up..
[2020-04-25 05:11] LABS: Anisocytosis Slight; Basophils % (A) 0 %; Eosinophils % (A) 0 %; HCT 26.4 % (34.0-46.0); HGB 8.2 gm/dL (11.4-16.0); Hypochromasia Marked; Lymphocytes # (A) 0.6 k/uL (1.0-4.8); Lymphocytes % (A) 6 %; MCH 29.8 pg (25.0-35.0); MCHC 30.9 g/dL (31.0-37.0); MCV 96.5 fL (80.0-100.0); Macrocytosis Slight; Mean Platelet Volume 9.5; Monocytes # (A) 0.5 k/uL (0-1.0); Monocytes % (A) 4 %; Neutrophils # (A) 9.2 k/uL (1.3-7.7); Neutrophils % (A) 88 %; Platelet Count 145 k/uL (150-450); Poikilocytosis Moderate; RBC 2.74 m/uL (3.80-5.40); RDW 16.4 % (11.5-15.5); WBC 10.4 k/uL (3.8-10.6)
[2020-04-25 05:26] LABS: Calcium 8.1 mg/dL (8.4-10.2); Potassium 4.1 mmol/L (3.5-5.1)
--- NOTE | 2020-04-25 07:30 | XR ---
EXAMINATION TYPE: XR chest 1V portable DATE OF EXAM: 04/25/2020 COMPARISON: 04/24/2020 INDICATION: Covid pneumonia TECHNIQUE: Single frontal view of the chest is obtained. FINDINGS: The heart size is normal. The pulmonary vasculature is distinct. There is diffuse increased lung markings. Findings are stable over the interval. Double-lumen cathete r is on the right with the tips near the superior vena cava right atrial junction IMPRESSION: 1. Stable appearance of diffuse bilateral lung infiltrates
[2020-04-25] MEDS: ALBUTEROL HFA INHALER INHALATION SCH ×4 (08:47→19:50)
[2020-04-25] MEDS ORDERED: HYDROmorphone 1 MG/ML 1 ML SYRINGE IVP PRN (08:51)
[2020-04-25] MEDS: ZINC SULFATE 220 MG CAP PO SCH (10:08)
[2020-04-25] MEDS: dexAMETHasone 2 MG TAB PO SCH (10:08)
[2020-04-25] MEDS: CITALOPRAM HYDROBROMIDE 10 MG TAB PO SCH (10:08)
[2020-04-25] MEDS: ASCORBIC ACID 500 MG TAB PO SCH (10:08)
[2020-04-25] MEDS: FLUCONAZOLE 100 MG TAB PO SCH (10:09)
[2020-04-25] MEDS: APIXABAN 2.5 MG TABLET PO SCH ×2 (10:09→20:56)
[2020-04-25] MEDS: PANTOPRAZOLE 40 MG/10 ML VIAL IV SCH (10:09)
[2020-04-25] MEDS: FUROSEMIDE 80 MG TAB PO SCH ×2 (10:09→17:04)
[2020-04-25] MEDS ORDERED: Phosphorus Replacement Protoco 1 EACH MISC MISCELLANE PRN (10:28)
--- NOTE | 2020-04-25 10:29 | P.PN ---
Subjective Patient is seen in follow-up for acute kidney injury, currently hemodialysis dependent. She underwent dialysis on a daily basis this past week for volume overload. Currently being treated for COVID19 pneumonia. She is on a 15 L nonrebreather. Per nurse, she's been awake and alert. No significant changes overnight but continues to require high amounts of oxygen. Vital signs stable. Blood pressure in the systolic 130s. Currently a nonrebreather. No gross edema noted. Exam discussed with the nurse. Objective - Vital Signs Vital signs: Vital Signs Temp 98.4 F 04/25/20 04:00 Pulse 69 04/25/20 08:00 Resp 20 04/25/20 08:00 BP 136/71 04/25/20 08:00 Pulse Ox 93 L 04/25/20 08:00 Intake & Output 04/24/20 04/25/20 04/25/20 19:59 06:59 18:59 Intake Total Output Total 0 Balance 0 Intake: Intake, IV Titration Amount Remdesivir (Eua) 100 mg In Sodium Chloride 0.9% 250 ml @ 250 mls/hr IVPB DAILY@1400 [facility] Rx#: [id number] Oral Output: Urine 0 Stool Hemodialysis Other: Voiding Method - Labs CBC & Chem 7: 04/25/20 04:26 04/25/20 04:26 Labs: Abnormal Lab Results - Last 24 Hours (Table) 04/24/20 04/25/20 04/25/20 Range/Units 10:00 04:26 04:26 RBC 2.74 L (3.80-5.40) m/uL Hgb 8.2 L (11.4-16.0) gm/dL Hct 26.4 L (34.0-46.0) % MCHC 30.9 L (31.0-37.0) g/dL RDW 16.4 H (11.5-15.5) % Plt Count 145 L (150-450) k/uL Neutrophils # 9.2 H (1.3-7.7) k/uL Lymphocytes # 0.6 L (1.0-4.8) k/uL Sodium 131 L (137-145) mmol/L BUN 51 H (7-17) mg/dL Creatinine 1.70 H (0.52-1.04) mg/dL Glucose 120 H (74-99) mg/dL Calcium 8.1 L (8.4-10.2) mg/dL Lactate Dehydrogenase 3064 H (313-618) U/L Assessment and Plan Plan: Assessment: 1. Acute kidney injury, currently hemodialysis dependent secondary to nonrecovered ATN from severe sepsis last admission. Urine output 700 mL overnight. 2. Volume overload. Improved with daily ultrafiltration. 3. COVID-19 pneumonia maintained on remdesivir, zinc and steroids. 4. Altered mental status secondary to infection and morphine. Improved. 5. Anemia secondary to underlying renal disease maintained on Aranesp. Status post blood transfusion this admission. No active bleeding. 6. Hypophosphatemia from poor intake. Plan: Hemodialysis tomorrow. Maintain Lasix. Accurate I's and O's. Replace phosphorus per protocol. Continue to monitor for renal recovery.
[2020-04-25] MEDS: ONDANSETRON 4 MG/2 ML VIAL IVP PRN (10:52)
[2020-04-25] MEDS: HYDROmorphone 0.5 MG/0.5 ML SYRINGE IVP PRN ×2 (11:42→17:08)
--- NOTE | 2020-04-25 12:18 | P.PN ---
Subjective Progress Note Date: 04/25/20 04/25/2020, the patient remains on 100% nonrebreather facemask in addition to high flow oxygen at 15 L per minute. She is having episodes of desaturations and a pulse ox can drop as low as 86% specially when she talks or she exerts. Note that she stay most of the time in bed. She is receiving daily hemodialysis unless and without sedation was done yesterday. She is on her fourth day of Remdesivir treatment, and I'm not seeing any clinical improvement in the chest x-ray shows essentially no interval change and there is diffuse bilateral pulmonary infiltrates related to Coumadin extubated pneumonia. The patient otherwise is awake and alert. No altered mentation. She remains on oral Decadron. Diflucan was added for some oral candidiasis. She remains on zinc sulfate and vitamin C and melatonin. The white cell count today is at 10.4. Hemoglobin is at 8.2. The creatinine is down to 1.7 and noted the patient is producing urine output. Most recent LDH was 3064 from yesterday and a CRP level was 81.7. The patient is a triple-lumen in the right femoral vein and a permacath is in the right IJ. She has a functioning catheter. Objective - Vital Signs Vital signs: Vital Signs Temp 98.4 F 04/25/20 04:00 Pulse 69 04/25/20 08:00 Resp 20 04/25/20 08:00 BP 136/71 04/25/20 08:00 Pulse Ox 93 L 04/25/20 08:00 Intake & Output 04/24/20 04/25/20 04/25/20 19:59 06:59 18:59 Intake Total Output Total 0 Balance 0 Intake: Intake, IV Titration Amount Remdesivir (Eua) 100 mg In Sodium Chloride 0.9% 250 ml @ 250 mls/hr IVPB DAILY@1400 [facility] Rx#: [id number] Oral Output: Urine 0 Stool Hemodialysis Other: Voiding Method - Exam Gen. appearance the patient is awake, somnolent and lethargic but arousable. The patient is tolerating high flow oxygen 15 L L per minute nasal cannula in addition to 100% nonrebreather facemask and FiO2 being titrated to maintain a saturation above 90%. Head exam was generally normal. There was no scleral icterus or corneal arcus. Mucous membranes were moist. Neck was supple and without jugular venous distension, thyromegaly, or carotid bruits. Carotids were easily palpable bilaterally. There was no adenopathy. Lungs sounds are diminished bilaterally otherwise clear.there are some crackles in lung bases bilaterally and the breath sounds Heart exam revealed the PMI to be normally situated and sized. The rhythm was regular and no extrasystoles were noted during several minutes of auscultation. The first and second heart sounds were normal and physiologic splitting of the second heart sound was noted. There were no murmurs, rubs, clicks, or gallops. Abdominal exam revealed normal bowel sounds. The abdomen was soft, non-tender, and without masses, organomegaly, or appreciable enlargement of the abdominal aorta. The incision over the right abdominal wall is dry clean and intact and there is no active drainage at this point in time. the patient has a triple- lumen catheter in the right femoral vein examination of the extremities revealed easily palpable radial, femoral and pedal pulses. There was no cyanosis, clubbing or and the patient is developing some edema in all 4 extremities more so in the upper extremities bilaterally. Examination of the skin revealed no evidence of significant rashes, suspicious appearing nevi or other concerning lesions. Neurologically the patient is awake and communicating. She is moving all 4 extremities upon stimulation painful stimuli. No focal neurological deficit at this point in time. - Labs CBC & Chem 7: 04/25/20 04:26 04/25/20 04:26 Labs: Abnormal Lab Results - Last 24 Hours (Table) 04/25/20 04/25/20 Range/Units 04:26 04:26 RBC 2.74 L (3.80-5.40) m/uL Hgb 8.2 L (11.4-16.0) gm/dL Hct 26.4 L (34.0-46.0) % MCHC 30.9 L (31.0-37.0) g/dL RDW 16.4 H (11.5-15.5) % Plt Count 145 L (150-450) k/uL Neutrophils # 9.2 H (1.3-7.7) k/uL Lymphocytes # 0.6 L (1.0-4.8) k/uL Sodium 131 L (137-145) mmol/L BUN 51 H (7-17) mg/dL Creatinine 1.70 H (0.52-1.04) mg/dL Glucose 120 H (74-99) mg/dL Calcium 8.1 L (8.4-10.2) mg/dL Assessment and Plan Plan: 1 acute bilateral pneumonia secondary to Covid 19. The patient has a acute on top of chronic hypoxic and hypercapnic hypercapnic respiratory failure, CO2 narcosis . The acute hypercapnic component has recovered and the most recent blood gas showed improvement in the CO2 level and acid base status. The patient is being treated for an acute Covid 19 related pneumonia. The blood gases from today shows hypoxic respiratory failure and the patient is currently on 15 L in addition to 100% nonrebreather facemask. Her pulse ox is above 88%. Her oxidation is borderline. The chest findings are essentially unchanged and is showing diffuse but the pulmonary infiltrates. Inflammatory markers including LDH and CRP level from yesterday were quite elevated. The patient is completing Remdesivir and I'm considering this patient for convalescent plasma and will check also based on interleukin-6 levels in consideration for Actemra 2 Acute COVID 19 infection, and secondary Covid 19 related pneumonia, and the patient is day 4 of treatment with Remdesivir and the patient is also on Decadron.Chest x-ray unchanged. Clinically unchanged. The oxygenation remains quite poor. 3 acute kidney injury without any significant recovery and a patient is currently on hemodialysis. The last session of hemodialysis wa yesterday 4 COPD 5 chronic back pain and the patient has a morphine pain pump placement and the pump was reduced down to 1.5 mg daily basis of morphine, recommend discontinuing the morphine pump infusion 6 acute shock liver, recovered 7 chronic back pain pain and the patient has a morphine pain pump in place, currently on a morphine dose of 1.5 mg over 24 hours, the reduction in those was done yesterday. 8 previous history of CVA without any major neurologic deficits 9 hypertension 10 previous history of syncope 11 chronic back pain with previous history of back surgery in addition to degenerative spine disease in addition to spondylolisthesis and compression fracture 12 smoker 13 hypertension 14 hyperlipidemia 15 acid reflux 16 thrombocytopenia, Recovered 17 questionable cholecystitis with some pericholecystic fluid and the patient had abnormal LFTs which ultimately improved. Alkaline phosphatase is down to 140. Bilirubin is not elevated and the patient is not having any right upper quadrant pain or tenderness. This issue was addressed during her latest hospitalization the patient was not found to be a surgical candidate for now. The LFTs are being monitored as the patient is being treated also with antiviral regarding the slater virus Covid 19 infection. 18 acute DVT in the right IJ and brachial vein and the patient has superficial thrombosis in the cephalic vein and the patient was kept on anticoagulation. the patient is currently on Eliquis 2.5 mg twice a day 19 acute on chronic anemia and hemoglobin currently stable at 8.2 Plan Dialysis per nephrology, the patient i producing better urine output. Last hemodialysis was yesterday. Use high flow oxygen 15 L and 100% nonrebreather facemask, Note that the patient is still quite hypoxic and the chest x-ray findings are essentially unchanged. Continue treatment of slater virus Covid 19 infection/pneumonia. continue the patient on a combination of oral Decadron and Remdesivir. The patient has impaired renal function and currently she is on dialysis and there are no signs of improvement in the renal function. We will closely monitor the hepatitic function as the patient is taken his medication. The patient also on Decadron 6 mg on a daily basis. Continue anticoagulation with Eliquis. Check interleukin-6 levels Order convalescent plasma We'll transfuse convalescent plasma if available by the blood bank The chest x-ray findings and essentially the same and I will complete a five-day course of Remdesivir treatment I updated the family on the patient's condition. The CODE STATUS will remai full We'll continue monitoring this patient in intensive care unit and further, this is to follow based on her progress. Condition is critical at this point in time.
[2020-04-25] MEDS: REMDESIVIR (EUA) 100 MG in SODIUM CHLORIDE 0.9% 250 ML IVPB SCH (13:23)
--- NOTE | 2020-04-25 14:48 | P.PN ---
Progress Note - Text Progress Note Date: 04/25/20 Chief Complaint: Tired Hospital course: Patient is 64-year-old female, - family doctor is Dr. pam Baker. Chronic stable medical conditions include chronic pain currently on a morphine pump , hypertension, CHF, and prior stroke . Recently in the hospital from March 28 through April 13. Admitted with-acute metabolic encephalopathy felt to be multifactorial, severe ischemic hepatitis from hypotension, acute kidney injury, likely ATN started on hemodialysis, septic shock, acute hypoxic and hypercapnic respiratory failure, metabolic and respiratory acidosis, COPD exacerbation. Empirically put on antibiotics source of infection unclear. Morphine dose in the pain pump decreased by Dr. Vee.patient felt to have cholecystitis. because of being clinically unstable decided not to proceed with any surgery. Patient responded to antibiotics.Doppler ultrasound confirmed DVT in the right upper extremity. Started on IV heparin. Then switch to eliquis. Patient advised to go to rehab. Patient and daughter decided to take her home. Patient now readmitted on April 17. Admitted with-acute hypoxic and hypercapnic respiratory failure, related to acute COVID 19 pneumonia, acute kidney injury. Started on hemodialysis. Placed on morphine drip. Received a unit of blood. Requiring BiPAP. [id number] a bit better. Eating some. More awake. Requesting her home dose of Seroquel. She gets 100 mg. Nonrebreather. Review of systems: Was done for constitutional, cardiovascular, GI, pulmonary. relevant finding as above Active Medications Albuterol Sulfate (Albuterol Hfa Inhaler) 2 puff INHALATION RT-QID [facility] Last Admin: 04/25/20 11:05 Dose: 2 puff Documented by: Apixaban (Apixaban 2.5 Mg Tablet) 2.5 mg PO BID [facility] Last Admin: 04/25/20 10:09 Dose: 2.5 mg Documented by: Ascorbic Acid (Ascorbic Acid 500 Mg Tab) 500 mg PO DAILY [facility] Last Admin: 04/25/20 10:08 Dose: 500 mg Documented by: Citalopram Hydrobromide (Citalopram Hydrobromide 10 Mg Tab) 10 mg PO DAILY [facility] Last Admin: 04/25/20 10:08 Dose: 10 mg Documented by: Darbepoetin Clinton (Darbepoetin Clinton 60 Mcg/0.3 Ml Syringe) 60 mcg SQ Q7D [facility] Last Admin: 04/22/20 12:04 Dose: 60 mcg Documented by: Dexamethasone (Dexamethasone 2 Mg Tab) 6 mg PO DAILY [facility] Stop: 04/29/20 09:01 Last Admin: 04/25/20 10:08 Dose: 6 mg Documented by: Fluconazole (Fluconazole 100 Mg Tab) 100 mg PO DAILY [facility] Last Admin: 04/25/20 10:09 Dose: 100 mg Documented by: Furosemide (Furosemide 80 Mg Tab) 80 mg PO BID@0900,1600 [facility] Last Admin: 04/25/20 10:09 Dose: 80 mg Documented by: Gabapentin (Gabapentin 100 Mg Cap) 100 mg PO HS [facility] Last Admin: 04/24/20 20:49 Dose: 100 mg Documented by: Hydromorphone HCl (Hydromorphone 0.5 Mg/0.5 Ml Syringe) 0.5 mg IVP Q2HR PRN PRN Reason: Pain Last Admin: 04/25/20 11:42 Dose: 0.5 mg Documented by: Remdesivir 100 mg/ Sodium (Chloride) 250 mls @ 250 mls/hr IVPB DAILY@1400 [facility] Stop: 04/25/20 14:59 Last Admin: 04/25/20 13:23 Dose: 250 mls/hr Documented by: Miscellaneous Information (Phosphorus Replacement Protoco 1 Each Misc) 1 each MISCELLANE DAILY PRN; Protocol PRN Reason: Per Protocol Naloxone HCl (Naloxone 0.4 Mg/Ml 1 Ml Vial) 0.2 mg IV Q2M PRN PRN Reason: Opioid Reversal Ondansetron HCl (Ondansetron 4 Mg/2 Ml Vial) 4 mg IVP Q6HR PRN PRN Reason: Nausea And Vomiting Last Admin: 04/25/20 10:52 Dose: 4 mg Documented by: Pantoprazole Sodium (Pantoprazole 40 Mg/10 Ml Vial) 40 mg IV DAILY [facility] Last Admin: 04/25/20 10:09 Dose: 40 mg Documented by: Quetiapine Fumarate (Quetiapine 50 Mg Tab) 50 mg PO HS [facility] Ropinirole HCl (Ropinirole Hcl 1 Mg Tab) 1 mg PO HS [facility] Last Admin: 04/24/20 20:49 Dose: 1 mg Documented by: Zinc Sulfate (Zinc Sulfate 220 Mg Cap) 220 mg PO DAILY [facility] Last Admin: 04/25/20 10:08 Dose: 220 mg Documented by: Physical examination: VITAL SIGNS: Afebrile, 69, 20, 136/71, 93% on high flow oxygen GENERAL: Laying in more awake EYES: Pupils equal. Conjunctiva pale. Psych: AO 3, more affect slightly anxious rest of physical exam as per concrete polisher and nursing INVESTIGATIONS, reviewed in the clinical context: White count 10.4 hemoglobin 8.2 platelets 145 potassium 4.1 bun 51 and creatinine 1.70 Chest x-ray from April 24-persistent infiltrates/edema white count 6 hemoglobin 7.9 platelets 166bun 44 creatinine 1.53 LDH 2036 CRP 61.2 Previous testing including from last admission Hepatitis B surface antigen, core IgM antibody, hepatitis C IgG antibody all nonreactive Hepatitis A IgM antibody nonreactive Doppler-DVT IN THE JUGULAR VEIN AND THE BRACHIAL VEIN. SUPERFICIAL THROMBUS IN THE CEPHALIC VEIN. renal function is normal in December 2018 Assessment: -Acute on chronic hypoxic and hypercapnic respiratory failure from COVID 19 pneumonia-slow to respond -Acute COVID 19 pneumonia -Chronic pain syndrome with a morphine pain pump that for relocated from the spine to the anterior abdominal wall recently-followed by Dr. bedolla, -Acute kidney injury likely ATN -started on hemodialysis March 30- -Chronic L1 compression fracture -Mixed metabolic and respiratory acidosis with -Chronic nicotine dependence, patient is a cigarette smoker -Acute COPD exacerbation in a current smoker -Essential hypertension- -sub Acute DVT in the right jugular vein and brachial vein. Superficial thrombus in the cephalic vein. On eliquis -Recent acute shock liver-recovered Plan: ICU. High flow oxygen.. Currently on eliquis, Celexa, dexamethasone, Neurontin, IV Remdesivir, Requip, zinc. Discussed with patient. Encourage oral intake. Seroquel dose confirmed from patient's pharmacy. We'll start the patient on 50 mg daily at bedtime.
[2020-04-25] MEDS: GABAPENTIN 100 MG CAP PO SCH (20:56)
[2020-04-25] MEDS: QUEtiapine 50 MG TAB PO SCH (21:07)
[2020-04-26] MEDS: HYDROmorphone 0.5 MG/0.5 ML SYRINGE IVP PRN ×3 (02:49→20:39)
[2020-04-26 06:47] LABS: Anisocytosis Slight; Basophils % (A) 0 %; Eosinophils % (A) 0 %; HCT 26.1 % (34.0-46.0); HGB 8.1 gm/dL (11.4-16.0); Hypochromasia Marked; Lymphocytes # (A) 0.5 k/uL (1.0-4.8); Lymphocytes % (A) 5 %; MCH 30.2 pg (25.0-35.0); MCHC 30.9 g/dL (31.0-37.0); MCV 97.5 fL (80.0-100.0); Macrocytosis Slight; Mean Platelet Volume 9.5; Monocytes # (A) 0.4 k/uL (0-1.0); Monocytes % (A) 4 %; Neutrophils # (A) 8.3 k/uL (1.3-7.7); Neutrophils % (A) 90 %; Platelet Count 133 k/uL (150-450); Poikilocytosis Slight; RBC 2.68 m/uL (3.80-5.40); RDW 16.3 % (11.5-15.5); WBC 9.3 k/uL (3.8-10.6)
[2020-04-26 06:57] LABS: Albumin 2.8 g/dL (3.5-5.0); Calcium 7.7 mg/dL (8.4-10.2)
--- NOTE | 2020-04-26 07:00 | XR ---
EXAMINATION TYPE: XR chest 1V DATE OF EXAM: 04/26/2020 CLINICAL HISTORY: Difficulty breathing progress study. Covid pneumonia. TECHNIQUE: Single AP portable upright view of the chest is obtained. COMPARISON: Chest x-ray from one day earlier and older studies. CT chest April 17, 2020. FINDINGS: Stable large bore right internal jugular dual lumen central venous dialysis catheter. Persistent reticular and alveolar opacities bilaterally fairly diffusely with relative sparing of the central right lung base. Cardiac silhouette size stable and within normal limits. No pleural effusio n or pneumothorax seen bilaterally. Osseous structures are intact. Patient rotated to the right on cu rrent study. IMPRESSION: Persistent bilateral multifocal alveolar and interstitial edema and/or infiltrates. No s ignificant change from most recent x-ray.
[2020-04-26] MEDS: ALBUTEROL HFA INHALER INHALATION SCH ×5 (07:22→19:58)
[2020-04-26] MEDS: APIXABAN 2.5 MG TABLET PO SCH ×2 (08:35→20:38)
[2020-04-26] MEDS: ASCORBIC ACID 500 MG TAB PO SCH (08:35)
[2020-04-26] MEDS: CITALOPRAM HYDROBROMIDE 10 MG TAB PO SCH (08:36)
[2020-04-26] MEDS: FLUCONAZOLE 100 MG TAB PO SCH (08:36)
[2020-04-26] MEDS: dexAMETHasone 2 MG TAB PO SCH (08:36)
[2020-04-26] MEDS: FUROSEMIDE 80 MG TAB PO SCH ×2 (08:36→15:45)
[2020-04-26] MEDS: PANTOPRAZOLE 40 MG/10 ML VIAL IV SCH (08:37)
[2020-04-26] MEDS: ZINC SULFATE 220 MG CAP PO SCH (08:37)
[2020-04-26] MEDS: ONDANSETRON 4 MG/2 ML VIAL IVP PRN (08:37)
[2020-04-26] MEDS ORDERED: SALINE NASAL GEL 14.1 GM TUBE TOPICAL PRN (09:19)
--- NOTE | 2020-04-26 09:26 | P.PN ---
Subjective Patient is seen in follow-up for acute kidney injury, currently hemodialysis dependent. She underwent dialysis on a daily basis past week for volume overload. Currently being treated for COVID19 pneumonia. She is on a 15 L nonrebreather. Per nurse, she's been awake and alert. No significant changes overnight but still continues to require high amounts of oxygen. Urine output is also improved. She is maintained on oral Lasix. Urine output documented as over 2 L in the last 24 hours. Vital signs stable. Blood pressure in the systolic 110-120s. Currently a nonrebreather. No gross edema noted. Exam discussed with the nurse. Objective - Vital Signs Vital signs: Vital Signs Temp 98.1 F 04/26/20 08:00 Pulse 78 04/26/20 09:00 Resp 18 04/26/20 09:00 BP 120/66 04/26/20 09:00 Pulse Ox 100 04/26/20 09:00 Intake & Output 04/25/20 04/26/20 04/26/20 18:59 06:59 18:59 Intake Total 250 212 125 Output Total 1950 700 0 Balance -1700 -488 125 Weight 90 kg Intake: IV 250 Remdesivir (Eua) 100 mg 250 In Sodium Chloride 0.9% 250 ml @ 250 mls/hr IVPB DAILY@1400 [facility] Rx#: [id number] Oral 125 Blood Product 0 212 Ffp Pher Conval Covid19 0 212 Acda 1 Unit [id number] Output: Urine 1950 700 0 Other: Voiding Method Incontinent # Bowel Movements 1 - Labs CBC & Chem 7: 04/26/20 06:20 04/26/20 06:20 Labs: Abnormal Lab Results - Last 24 Hours (Table) 04/26/20 04/26/20 Range/Units 06:20 06:20 RBC 2.68 L (3.80-5.40) m/uL Hgb 8.1 L (11.4-16.0) gm/dL Hct 26.1 L (34.0-46.0) % MCHC 30.9 L (31.0-37.0) g/dL RDW 16.3 H (11.5-15.5) % Plt Count 133 L (150-450) k/uL Neutrophils # 8.3 H (1.3-7.7) k/uL Lymphocytes # 0.5 L (1.0-4.8) k/uL Sodium 131 L (137-145) mmol/L Chloride 95 L (98-107) mmol/L BUN 77 H (7-17) mg/dL Creatinine 2.22 H (0.52-1.04) mg/dL Glucose 139 H (74-99) mg/dL Calcium 7.7 L (8.4-10.2) mg/dL Total Bilirubin 2.0 H (0.2-1.3) mg/dL ALT 37 H (4-34) U/L Alkaline Phosphatase 169 H (38-126) U/L Total Protein 6.0 L (6.3-8.2) g/dL Albumin 2.8 L (3.5-5.0) g/dL Assessment and Plan Plan: Assessment: 1. Acute kidney injury, currently hemodialysis dependent secondary to nonrecove red ATN from severe sepsis last admission. Urine output over 2 L in the last 24 hours. 2. Volume overload. Improving with ultrafiltration. 3. COVID-19 pneumonia maintained on zinc and steroids; s/p remdesivir. 4. Altered mental status secondary to infection and morphine. Improved. 5. Anemia secondary to underlying renal disease maintained on Aranesp. Status post blood transfusion this admission. No active bleeding. 6. Hypophosphatemia from poor intake. Improved post replacement. Plan: Hemodialysis today. Maintain Lasix. Accurate I's and O's. Continue to monitor for renal recovery. Wean FiO2.
--- NOTE | 2020-04-26 15:07 | P.PN ---
Subjective Progress Note Date: 04/26/20 Principal diagnosis: Bilateral pneumonia secondary to covid 19 pneumonitis 04/25/2020, the patient remains on 100% nonrebreather facemask in addition to high flow oxygen at 15 L per minute. She is having episodes of desaturations and a pulse ox can drop as low as 86% specially when she talks or she exerts. Note that she stay most of the time in bed. She is receiving daily hemodialysis unless and without sedation was done yesterday. She is on her fourth day of Remdesivir treatment, and I'm not seeing any clinical improvement in the chest x-ray shows essentially no interval change and there is diffuse bilateral pulmonary infiltrates related to Coumadin extubated pneumonia. The patient otherwise is awake and alert. No altered mentation. She remains on oral Decadron. Diflucan was added for some oral candidiasis. She remains on zinc sulfate and vitamin C and melatonin. The white cell count today is at 10.4. Hemoglobin is at 8.2. The creatinine is down to 1.7 and noted the patient is producing urine output. Most recent LDH was 3064 from yesterday and a CRP level was 81.7. The patient is a triple-lumen in the right femoral vein and a permacath is in the right IJ. She has a functioning catheter. Patient was reevaluated today on 04/26/20, remains in the ICU, she is on 15 L high flow nasal cannula, O2 saturation is 97%. Looks comfortable, chest x-ray shows evidence of bilateral interstitial infiltrates consistent with diffuse bilateral pneumonia. Patient has IV fluid at KVO, we will undergo hemodialysis today.. And she is making adequate amount of urine. Patient completed her course of remdesivir yesterday, she remains on Decadron 6 mg IV push daily, and she received convalescent plasma on 04/25. Patient is on Eliquis. She is also on Lasix 80 mg by mouth twice a day. And on oral fluconazole Objective - Vital Signs Vital signs: Vital Signs Temp 98.1 F 04/26/20 12:00 Pulse 68 04/26/20 14:00 Resp 16 04/26/20 14:00 BP 120/67 04/26/20 14:00 Pulse Ox 90 L 04/26/20 14:00 Intake & Output 04/25/20 04/26/20 04/26/20 18:59 06:59 18:59 Intake Total 250 212 350 Output Total 1592 459 5867 Balance -7378 -924 -3396 Weight 90 kg Intake: IV 250 Remdesivir (Eua) 100 mg 250 In Sodium Chloride 0.9% 250 ml @ 250 mls/hr IVPB DAILY@1400 [facility] Rx#: [id number] Oral 350 Blood Product 0 212 Ffp Pher Conval Covid19 0 212 Acda 1 Unit [id number] Output: Urine 4818 185 8879 Stool 0 Other: Voiding Method Incontinent Indwelling Catheter # Bowel Movements 1 - Exam Physical Exam: Revealed a 65-year-old female in no distress, on high flow nasal cannula. Head: Atraumatic, normocephalic. HEENT:[Neck is supple.] [No neck masses.] [No thyromegaly.] [No JVD.] PERRLA, EOMI, neck disc, Chest: [Symmetrical chest expansion, crackles at the bases bilaterally. Cardiac Exam: [Normal S1 and S2, no S3 gallop, no murmur.] Abdomen: [Soft, nontender, no megaly, no rebound, no guarding, normal bowel sounds.] Extremities: [No clubbing, no edema, no cyanosis.] Right femoral catheter in the right femoral vein. Neurological Exam: [No focal neurologic deficit.] Alert and oriented 3. Psychiatric: Normal mood, affect and normal mental status examination. Skin: No rashes. - Labs CBC & Chem 7: 04/26/20 06:20 04/26/20 06:20 Labs: Abnormal Lab Results - Last 24 Hours (Table) 04/26/20 04/26/20 Range/Units 06:20 06:20 RBC 2.68 L (3.80-5.40) m/uL Hgb 8.1 L (11.4-16.0) gm/dL Hct 26.1 L (34.0-46.0) % MCHC 30.9 L (31.0-37.0) g/dL RDW 16.3 H (11.5-15.5) % Plt Count 133 L (150-450) k/uL Neutrophils # 8.3 H (1.3-7.7) k/uL Lymphocytes # 0.5 L (1.0-4.8) k/uL Sodium 131 L (137-145) mmol/L Chloride 95 L (98-107) mmol/L BUN 77 H (7-17) mg/dL Creatinine 2.22 H (0.52-1.04) mg/dL Glucose 139 H (74-99) mg/dL Calcium 7.7 L (8.4-10.2) mg/dL Total Bilirubin 2.0 H (0.2-1.3) mg/dL ALT 37 H (4-34) U/L Alkaline Phosphatase 169 H (38-126) U/L Total Protein 6.0 L (6.3-8.2) g/dL Albumin 2.8 L (3.5-5.0) g/dL Assessment and Plan Assessment: Impression: Acute hypoxic episode of failure secondary to covid 19 pneumonitis. Patient is status post full treatment with remdesivir, convalescent plasma, and she remains on Decadron as well as zinc. Acute kidney injury, patient is on hemodialysis. Acute shock liver, recovering. Previous history of CVA without any major neurological deficits. History of hypertension. Thrombocytopenia, recovered. History of GERD. Chronic back pain for which she receives morphine via pump in place. Questionable cholecystitis with abnormal liver enzymes, improved. Acute deep vein thromboses in the right IJ and brachial vein, remains on Eliquis. Acute on chronic anemia with hemoglobin Recommendation: Continue to monitor the patient in the ICU. Continue hemodialysis. Continue high FiO2 and titrate accordingly. Continue GI and DVT prophylaxis. If the patient deteriorates, consider intubation, but so far clinically the patient does not require intubation and mechanical ventilation. Prognosis remains guarded, we'll continue to follow. Time with Patient: Less than 30
--- NOTE | 2020-04-26 16:17 | P.PN ---
Progress Note - Text Progress Note Date: 04/26/20 Chief Complaint: Tired Hospital course: Patient is 64-year-old female, - family doctor is Dr. pam Baker. Chronic stable medical conditions include chronic pain currently on a morphine pump , hypertension, CHF, and prior stroke . Recently in the hospital from March 28 through April 13. Admitted with-acute metabolic encephalopathy felt to be multifactorial, severe ischemic hepatitis from hypotension, acute kidney injury, likely ATN started on hemodialysis, septic shock, acute hypoxic and hypercapnic respiratory failure, metabolic and respiratory acidosis, COPD exacerbation. Empirically put on antibiotics source of infection unclear. Morphine dose in the pain pump decreased by Dr. Vee.patient felt to have cholecystitis. because of being clinically unstable decided not to proceed with any surgery. Patient responded to antibiotics.Doppler ultrasound confirmed DVT in the right upper extremity. Started on IV heparin. Then switch to eliquis. Patient advised to go to rehab. Patient and daughter decided to take her home. Patient now readmitted on April 17. Admitted with-acute hypoxic and hypercapnic respiratory failure, related to acute COVID 19 pneumonia, acute kidney injury. Started on hemodialysis. Placed on morphine drip. Received a unit of blood. Requiring BiPAP. [id number] between 10 L high flow nasal cannula and nonrebreather. Oral intake slowly improving. No hemodialysis today. Sat at the edge of the bed. Review of systems: Was done for constitutional, cardiovascular, GI, pulmonary. relevant finding as above Active Medications Albuterol Sulfate (Albuterol Hfa Inhaler) 2 puff INHALATION RT-QID [facility] Last Admin: 04/26/20 15:15 Dose: 2 puff Documented by: Apixaban (Apixaban 2.5 Mg Tablet) 2.5 mg PO BID [facility] Last Admin: 04/26/20 08:35 Dose: 2.5 mg Documented by: Ascorbic Acid (Ascorbic Acid 500 Mg Tab) 500 mg PO DAILY [facility] Last Admin: 04/26/20 08:35 Dose: 500 mg Documented by: Citalopram Hydrobromide (Citalopram Hydrobromide 10 Mg Tab) 10 mg PO DAILY [facility] Last Admin: 04/26/20 08:36 Dose: 10 mg Documented by: Darbepoetin Clinton (Darbepoetin Clinton 60 Mcg/0.3 Ml Syringe) 60 mcg SQ Q7D [facility] Last Admin: 04/22/20 12:04 Dose: 60 mcg Documented by: Dexamethasone (Dexamethasone 2 Mg Tab) 6 mg PO DAILY [facility] Stop: 04/29/20 09:01 Last Admin: 04/26/20 08:36 Dose: 6 mg Documented by: Fluconazole (Fluconazole 100 Mg Tab) 100 mg PO DAILY [facility] Last Admin: 04/26/20 08:36 Dose: 100 mg Documented by: Furosemide (Furosemide 80 Mg Tab) 80 mg PO BID@0900,1600 [facility] Last Admin: 04/26/20 15:45 Dose: 80 mg Documented by: Gabapentin (Gabapentin 100 Mg Cap) 100 mg PO [facility] Last Admin: 04/25/20 20:56 Dose: 100 mg Documented by: Hydromorphone HCl (Hydromorphone 0.5 Mg/0.5 Ml Syringe) 0.5 mg IVP Q2HR PRN PRN Reason: Pain Last Admin: 04/26/20 15:45 Dose: 0.5 mg Documented by: Miscellaneous Information (Phosphorus Replacement Protoco 1 Each Misc) 1 each MISCELLANE DAILY PRN; Protocol PRN Reason: Per Protocol Naloxone HCl (Naloxone 0.4 Mg/Ml 1 Ml Vial) 0.2 mg IV Q2M PRN PRN Reason: Opioid Reversal Ondansetron HCl (Ondansetron 4 Mg/2 Ml Vial) 4 mg IVP Q6HR PRN PRN Reason: Nausea And Vomiting Last Admin: 04/26/20 08:37 Dose: 4 mg Documented by: Pantoprazole Sodium (Pantoprazole 40 Mg/10 Ml Vial) 40 mg IV DAILY [facility] Last Admin: 04/26/20 08:37 Dose: 40 mg Documented by: Quetiapine Fumarate (Quetiapine 50 Mg Tab) 50 mg PO [facility] Last Admin: 04/25/20 21:07 Dose: 50 mg Documented by: Ropinirole HCl (Ropinirole Hcl 1 Mg Tab) 1 mg PO [facility] Last Admin: 04/25/20 20:56 Dose: 1 mg Documented by: Sodium Chloride (Saline Nasal Gel 14.1 Gm Tube) 1 applic TOPICAL Q4HR PRN PRN Reason: Dry Nasal Passages Zinc Sulfate (Zinc Sulfate 220 Mg Cap) 220 mg PO DAILY [facility] Last Admin: 04/26/20 08:37 Dose: 220 mg Documented by: Physical examination: VITAL SIGNS: Afebrile, GENERAL: Laying in more awake EYES: Pupils equal. Conjunctiva pale. Psych: AO 3, more affect slightly anxious rest of physical exam as per shredder operator and nursing INVESTIGATIONS, reviewed in the clinical context: White count 10.4 hemoglobin 8.2 platelets 145 potassium 4.1 bun 51 and creatinine 1.70 Chest x-ray from April 24-persistent infiltrates/edema white count 6 hemoglobin 7.9 platelets 166bun 44 creatinine 1.53 LDH 7 CRP 61.2 Previous testing including from last admission Hepatitis B surface antigen, core IgM antibody, hepatitis C IgG antibody all nonreactive Hepatitis A IgM antibody nonreactive Doppler-DVT IN THE JUGULAR VEIN AND THE BRACHIAL VEIN. SUPERFICIAL THROMBUS IN THE CEPHALIC VEIN. renal function is normal in December 2018 Assessment: -Acute on chronic hypoxic and hypercapnic respiratory failure from COVID 19 pneumonia-slow to respond -Acute COVID 19 pneumonia -Chronic pain syndrome with a morphine pain pump that for relocated from the spine to the anterior abdominal wall recently-followed by Dr. bedolla, -Acute kidney injury likely ATN -started on hemodialysis March 30- -Chronic L1 compression fracture -Mixed metabolic and respiratory acidosis with -Chronic nicotine dependence, patient is a cigarette smoker -Acute COPD exacerbation in a current smoker -Essential hypertension- -sub Acute DVT in the right jugular vein and brachial vein. Superficial thrombus in the cephalic vein. On eliquis -Recent acute shock liver-recovered Plan: ICU. - Currently on eliquis, Celexa, dexamethasone, Neurontin, IV Remdesivir, Requip, zinc.
[2020-04-26] MEDS: GABAPENTIN 100 MG CAP PO SCH (20:38)
[2020-04-26] MEDS: QUEtiapine 50 MG TAB PO SCH (20:38)
[2020-04-27 04:51] LABS: Anisocytosis Slight; Basophils % (A) 0 %; Eosinophils % (A) 0 %; HGB 8.5 gm/dL (11.4-16.0); Hypochromasia Marked; Lymphocytes # (A) 0.6 k/uL (1.0-4.8); Lymphocytes % (A) 7 %; MCH 29.1 pg (25.0-35.0); MCHC 30.5 g/dL (31.0-37.0); MCV 95.4 fL (80.0-100.0); Mean Platelet Volume 10.3; Monocytes # (A) 0.5 k/uL (0-1.0); Monocytes % (A) 5 %; Neutrophils # (A) 7.8 k/uL (1.3-7.7); Neutrophils % (A) 86 %; Platelet Count 162 k/uL (150-450); Poikilocytosis Slight; RBC 2.94 m/uL (3.80-5.40); RDW 16.8 % (11.5-15.5)
[2020-04-27 05:07] LABS: Albumin 3.1 g/dL (3.5-5.0); Calcium 7.6 mg/dL (8.4-10.2); Phosphorus 5.9 mg/dL (2.5-4.5); Potassium 4.2 mmol/L (3.5-5.1); Total Bilirubin 2.4 mg/dL (0.2-1.3); Total Protein 6.4 g/dL (6.3-8.2)
[2020-04-27] MEDS: ALBUTEROL HFA INHALER INHALATION SCH ×4 (07:24→19:34)
--- NOTE | 2020-04-27 08:18 | XR ---
EXAMINATION TYPE: XR chest 1V DATE OF EXAM: 04/27/2020 COMPARISON: 04/26/2020 HISTORY: 64 year-old female shortness of breath TECHNIQUE: Single frontal view of the chest is obtained. FINDINGS: Right-sided double-lumen hemodialysis catheter with tips in the upper right atrium. Heart borderline enlarged. Diffuse reticular/interstitial opacities persist. Lung volumes are improved from prior. No sizable effusion. IMPRESSION: Improved lung volumes from prior exam but otherwise with persistent diffuse interstitial opacities, e ither interstitial pulmonary edema or atypical pneumonia.
[2020-04-27] MEDS: PANTOPRAZOLE 40 MG/10 ML VIAL IV SCH (08:44)
[2020-04-27] MEDS: FUROSEMIDE 80 MG TAB PO SCH ×2 (08:44→15:47)
[2020-04-27] MEDS: dexAMETHasone 2 MG TAB PO SCH (08:44)
[2020-04-27] MEDS: ONDANSETRON 4 MG/2 ML VIAL IVP PRN ×2 (08:44→23:51)
[2020-04-27] MEDS: ASCORBIC ACID 500 MG TAB PO SCH (08:45)
[2020-04-27] MEDS: APIXABAN 2.5 MG TABLET PO SCH ×2 (08:45→20:08)
[2020-04-27] MEDS: CITALOPRAM HYDROBROMIDE 10 MG TAB PO SCH (08:45)
[2020-04-27] MEDS: FLUCONAZOLE 100 MG TAB PO SCH (08:46)
[2020-04-27] MEDS: ZINC SULFATE 220 MG CAP PO SCH (08:50)
[2020-04-27 10:15] VITALS: BMI 28.5
[2020-04-27] MEDS: HYDROmorphone 0.5 MG/0.5 ML SYRINGE IVP PRN ×4 (11:06→23:36)
--- NOTE | 2020-04-27 12:12 | P.PN ---
Subjective Patient is seen in follow-up for acute kidney injury, currently hemodialysis dependent. She underwent dialysis on a daily basis last week for volume overload. Currently being treated for COVID19 pneumonia. Per nurse, she's been awake and alert. No significant changes overnight but still continues to require high amounts of oxygen. Urine output is also improved - about 3 L in the last 24 hours. She is maintained on oral Lasix. Tolerating dialysis well with nearly 2 L ultrafiltration. She became bradycardic with heart rate in the 50s and short of breath for short duration but are now resolved. Vital signs stable. Blood pressure 102/72. Currently on high flow nasal cannula. No gross edema noted. Exam discussed with the nurse. Objective - Vital Signs Vital signs: Vital Signs Temp 97.7 F 04/27/20 08:00 Pulse 73 04/27/20 11:30 Resp 23 04/27/20 11:30 BP 102/72 04/27/20 11:30 Pulse Ox 97 04/27/20 11:30 Intake & Output 04/26/20 04/27/20 04/27/20 18:59 06:59 18:59 Intake Total 675 100 Output Total 2150 1277 300 Balance -1475 -1277 -200 Weight 85 kg 85 kg Intake: Oral 675 100 Output: Urine 2150 1277 300 Stool 0 Other: Voiding Method Indwelling Catheter Indwelling Catheter Indwelling Catheter - Labs CBC & Chem 7: 04/27/20 03:58 04/27/20 03:58 Labs: Abnormal Lab Results - Last 24 Hours (Table) 04/27/20 04/27/20 Range/Units 03:58 03:58 RBC 2.94 L (3.80-5.40) m/uL Hgb 8.5 L (11.4-16.0) gm/dL Hct 28.0 L (34.0-46.0) % MCHC 30.5 L (31.0-37.0) g/dL RDW 16.8 H (11.5-15.5) % Neutrophils # 7.8 H (1.3-7.7) k/uL Lymphocytes # 0.6 L (1.0-4.8) k/uL Sodium 130 L (137-145) mmol/L Chloride 89 L (98-107) mmol/L BUN 94 H (7-17) mg/dL Creatinine 2.41 H (0.52-1.04) mg/dL Glucose 106 H (74-99) mg/dL Calcium 7.6 L (8.4-10.2) mg/dL Phosphorus 5.9 H (2.5-4.5) mg/dL Total Bilirubin 2.4 H (0.2-1.3) mg/dL ALT 37 H (4-34) U/L Alkaline Phosphatase 173 H (38-126) U/L Albumin 3.1 L (3.5-5.0) g/dL Assessment and Plan Plan: Assessment: 1. Acute kidney injury, currently hemodialysis dependent secondary to nonrecovered ATN from severe sepsis last admission. Urine output over 3 L in the last 24 hours. 2. Volume overload. Improving with ultrafiltration And diuresis. 3. COVID-19 pneumonia maintained on zinc and steroids; s/p remdesivir. 4. Altered mental status secondary to infection and morphine. Improved. 5. Anemia secondary to underlying renal disease maintained on Aranesp. Status post blood transfusion this admission. No active bleeding. 6. Hyperphosphatemia secondary to chronic kidney disease. Phosphorus was initially low and was replaced. Plan: Currently seen while undergoing hemodialysis. Maintain Lasix. Accurate I's and O's. Continue to monitor for renal recovery - continue to assess further need for dialysis on a daily basis. Wean FiO2. Monitor phosphorus.
--- NOTE | 2020-04-27 16:12 | P.PN ---
Subjective Progress Note Date: 04/27/20 Principal diagnosis: Bilateral pneumonia secondary to covid 19 pneumonitis 04/25/2020, the patient remains on 100% nonrebreather facemask in addition to high flow oxygen at 15 L per minute. She is having episodes of desaturations and a pulse ox can drop as low as 86% specially when she talks or she exerts. Note that she stay most of the time in bed. She is receiving daily hemodialysis unless and without sedation was done yesterday. She is on her fourth day of Remdesivir treatment, and I'm not seeing any clinical improvement in the chest x-ray shows essentially no interval change and there is diffuse bilateral pulmonary infiltrates related to Coumadin extubated pneumonia. The patient otherwise is awake and alert. No altered mentation. She remains on oral Decadron. Diflucan was added for some oral candidiasis. She remains on zinc sulfate and vitamin C and melatonin. The white cell count today is at 10.4. Hemoglobin is at 8.2. The creatinine is down to 1.7 and noted the patient is producing urine output. Most recent LDH was 3064 from yesterday and a CRP level was 81.7. The patient is a triple-lumen in the right femoral vein and a permacath is in the right IJ. She has a functioning catheter. Patient was reevaluated today on 04/26/20, remains in the ICU, she is on 15 L high flow nasal cannula, O2 saturation is 97%. Looks comfortable, chest x-ray shows evidence of bilateral interstitial infiltrates consistent with diffuse bilateral pneumonia. Patient has IV fluid at KVO, we will undergo hemodialysis today.. And she is making adequate amount of urine. Patient completed her course of remdesivir yesterday, she remains on Decadron 6 mg IV push daily, and she received convalescent plasma on 04/25. Patient is on Eliquis. She is also on Lasix 80 mg by mouth twice a day. And on oral fluconazole Patient was reevaluated today on 05/24/20, remains in the intensive care unit, on 15 L high flow nasal cannula and 100% nonrebreather mask. Today however I plan to switch the patient to airvo. Chest x-ray continues to show evidence of diffuse infiltrate/ARDS. Patient finished treatment with remdesivir, continues to have intermittent episodes of shortness of breath with any activity and she desaturates easily once off oxygen. CBC is relatively normal hemoglobin is 8.5. Electrolytes are relatively normal. BUN is 94 creatinine 2.41, patient remains on dialysis. Objective - Vital Signs Vital signs: Vital Signs Temp 97.6 F 04/27/20 12:58 Pulse 73 04/27/20 15:00 Resp 16 04/27/20 15:00 BP 121/78 04/27/20 15:00 Pulse Ox 95 04/27/20 15:33 Intake & Output 04/26/20 04/27/20 04/27/20 18:59 06:59 18:59 Intake Total 675 200 Output Total 2150 1277 2045 Balance -9002 -6771 -6150 Weight 85 kg 85 kg Intake: Oral 675 200 Output: Urine 2150 1277 345 Stool 0 Hemodialysis 1700 Other: Voiding Method Indwelling Catheter Indwelling Catheter Indwelling Catheter - Exam Physical Exam: Revealed a 65-year-old female in no distress, on high flow nasal cannula. Switched to airvo Head: Atraumatic, normocephalic. HEENT:[Neck is supple.] [No neck masses.] [No thyromegaly.] [No JVD.] PERRLA, EOMI, neck disc, Chest: [Symmetrical chest expansion, crackles at the bases bilaterally. Cardiac Exam: [Normal S1 and S2, no S3 gallop, no murmur.] Abdomen: [Soft, nontender, no megaly, no rebound, no guarding, normal bowel sounds.] Extremities: [No clubbing, no edema, no cyanosis.] Right femoral catheter in the right femoral vein. Neurological Exam: [No focal neurologic deficit.] Alert and oriented 3. Psychiatric: Normal mood, affect and normal mental status examination. Skin: No rashes. - Labs CBC & Chem 7: 04/27/20 03:58 04/27/20 03:58 Labs: Abnormal Lab Results - Last 24 Hours (Table) 04/27/20 04/27/20 Range/Units 03:58 03:58 RBC 2.94 L (3.80-5.40) m/uL Hgb 8.5 L (11.4-16.0) gm/dL Hct 28.0 L (34.0-46.0) % MCHC 30.5 L (31.0-37.0) g/dL RDW 16.8 H (11.5-15.5) % Neutrophils # 7.8 H (1.3-7.7) k/uL Lymphocytes # 0.6 L (1.0-4.8) k/uL Sodium 130 L (137-145) mmol/L Chloride 89 L (98-107) mmol/L BUN 94 H (7-17) mg/dL Creatinine 2.41 H (0.52-1.04) mg/dL Glucose 106 H (74-99) mg/dL Calcium 7.6 L (8.4-10.2) mg/dL Phosphorus 5.9 H (2.5-4.5) mg/dL Total Bilirubin 2.4 H (0.2-1.3) mg/dL ALT 37 H (4-34) U/L Alkaline Phosphatase 173 H (38-126) U/L Albumin 3.1 L (3.5-5.0) g/dL Assessment and Plan Assessment: Impression: Acute hypoxic episode of failure secondary to covid 19 pneumonitis. Patient is status post full treatment with remdesivir, convalescent plasma, and she remains on Decadron as well as zinc. Acute kidney injury, patient is on hemodialysis. Acute shock liver, recovering. This is secondary to Covid 19 Previous history of CVA without any major neurological deficits. History of hypertension. Thrombocytopenia, recovered. History of GERD. Chronic back pain for which she receives morphine via pump in place. Questionable cholecystitis with abnormal liver enzymes, improved. Acute deep vein thromboses in the right IJ and brachial vein, remains on Eliquis. Acute on chronic anemia with hemoglobin Recommendation: Switch patient to airvo with high flow and high FiO2. Continue to monitor the patient in the ICU. Continue hemodialysis. Continue high FiO2 and titrate accordingly. Continue GI and DVT prophylaxis. If the patient deteriorates, consider intubation, but so far clinically the patient does not require intubation and mechanical ventilation. Prognosis remains guarded, we'll continue to follow. Time with Patient: Less than 30
[2020-04-27] MEDS: GABAPENTIN 100 MG CAP PO SCH (20:08)
[2020-04-27] MEDS: QUEtiapine 50 MG TAB PO SCH (20:08)
--- NOTE | 2020-04-27 23:13 | P.PN ---
Progress Note - Text Progress Note Date: 04/27/20 Chief Complaint: Tired Hospital course: Patient is 64-year-old female, - family doctor is Dr. pam Baker. Chronic stable medical conditions include chronic pain currently on a morphine pump , hypertension, CHF, and prior stroke . Recently in the hospital from March 28 through April 13. Admitted with-acute metabolic encephalopathy felt to be multifactorial, severe ischemic hepatitis from hypotension, acute kidney injury, likely ATN started on hemodialysis, septic shock, acute hypoxic and hypercapnic respiratory failure, metabolic and respiratory acidosis, COPD exacerbation. Empirically put on antibiotics source of infection unclear. Morphine dose in the pain pump decreased by Dr. Vee.patient felt to have cholecystitis. because of being clinically unstable decided not to proceed with any surgery. Patient responded to antibiotics.Doppler ultrasound confirmed DVT in the right upper extremity. Started on IV heparin. Then switch to eliquis. Patient advised to go to rehab. Patient and daughter decided to take her home. Patient now readmitted on April 17. Admitted with-acute hypoxic and hypercapnic respiratory failure, related to acute COVID 19 pneumonia, acute kidney injury. Started on hemodialysis. Placed on morphine drip. Received a unit of blood. Requiring BiPAP. Status post Remdesivir. [id number]. Patient placed on Airvo. Decreased oral intake. Good urine output. Awake tired Review of systems: Was done for constitutional, cardiovascular, GI, pulmonary. relevant finding as above Active Medications Albuterol Sulfate (Albuterol Hfa Inhaler) 2 puff INHALATION RT-QID [facility] [place] Last Admin: 04/27/20 19:34 Dose: 2 puff Documented by: Apixaban (Apixaban 2.5 Mg Tablet) 2.5 mg PO BID [facility] [place] Last Admin: 04/27/20 20:08 Dose: 2.5 mg Documented by: Ascorbic Acid (Ascorbic Acid 500 Mg Tab) 500 mg PO DAILY [facility] [place] Last Admin: 04/27/20 08:45 Dose: 500 mg Documented by: Citalopram Hydrobromide (Citalopram Hydrobromide 10 Mg Tab) 10 mg PO DAILY [facility] Last Admin: 04/27/20 08:45 Dose: 10 mg Documented by: Darbepoetin Clinton (Darbepoetin Clinton 60 Mcg/0.3 Ml Syringe) 60 mcg SQ Q7D [facility] [place] Last Admin: 04/22/20 12:04 Dose: 60 mcg Documented by: Dexamethasone (Dexamethasone 2 Mg Tab) 6 mg PO DAILY [facility] [place] Stop: 04/29/20 09:01 Last Admin: 04/27/20 08:44 Dose: 6 mg Documented by: Fluconazole (Fluconazole 100 Mg Tab) 100 mg PO DAILY [facility] [place] Last Admin: 04/27/20 08:46 Dose: 100 mg Documented by: Furosemide (Furosemide 80 Mg Tab) 80 mg PO BID@0900,1600 [facility] Last Admin: 04/27/20 15:47 Dose: 80 mg Documented by: Gabapentin (Gabapentin 100 Mg Cap) 100 mg PO [facility] Last Admin: 04/27/20 20:08 Dose: 100 mg Documented by: Hydromorphone HCl (Hydromorphone 0.5 Mg/0.5 Ml Syringe) 0.5 mg IVP Q2HR PRN PRN Reason: Pain Last Admin: 04/27/20 20:08 Dose: 0.5 mg Documented by: Miscellaneous Information (Phosphorus Replacement Protoco 1 Each Misc) 1 each MISCELLANE DAILY PRN; Protocol PRN Reason: Per Protocol Naloxone HCl (Naloxone 0.4 Mg/Ml 1 Ml Vial) 0.2 mg IV Q2M PRN PRN Reason: Opioid Reversal Ondansetron HCl (Ondansetron 4 Mg/2 Ml Vial) 4 mg IVP Q6HR PRN PRN Reason: Nausea And Vomiting Last Admin: 04/27/20 08:44 Dose: 4 mg Documented by: Pantoprazole Sodium (Pantoprazole 40 Mg/10 Ml Vial) 40 mg IV DAILY [facility] [place] Last Admin: 04/27/20 08:44 Dose: 40 mg Documented by: Quetiapine Fumarate (Quetiapine 50 Mg Tab) 50 mg PO [facility] Last Admin: 04/27/20 20:08 Dose: 50 mg Documented by: Ropinirole HCl (Ropinirole Hcl 1 Mg Tab) 1 mg PO [facility] Last Admin: 04/27/20 20:08 Dose: 1 mg Documented by: Sodium Chloride (Saline Nasal Gel 14.1 Gm Tube) 1 applic TOPICAL Q4HR PRN PRN Reason: Dry Nasal Passages Zinc Sulfate (Zinc Sulfate 220 Mg Cap) 220 mg PO DAILY [facility] Last Admin: 04/27/20 08:50 Dose: 220 mg Documented by: Physical examination: VITAL SIGNS: 98.1, 74, 19, 124 x 74, 97% on Airvo GENERAL: Laying awake tired EYES: Pupils equal. Conjunctiva pale. Psych: AO 3, more affect slightly anxious rest of physical exam as per neurology tech and nursing INVESTIGATIONS, reviewed in the clinical context: White count 9 hemoglobin 8.5 platelets 162 potassium 4.2 bun 94 creatinine 2.41 Chest x-ray from April 24-persistent infiltrates/edema white count 6 hemoglobin 7.9 platelets 166bun 44 creatinine 1.53 LDH 2037 CRP 61.2 Previous testing including from last admission Hepatitis B surface antigen, core IgM antibody, hepatitis C IgG antibody all nonreactive Hepatitis A IgM antibody nonreactive Doppler-DVT IN THE JUGULAR VEIN AND THE BRACHIAL VEIN. SUPERFICIAL THROMBUS IN THE CEPHALIC VEIN. renal function is normal in December 2018 Assessment: -Acute on chronic hypoxic and hypercapnic respiratory failure from COVID 19 pneumonia-slow to respond -Acute COVID 19 pneumonia -Chronic pain syndrome with a morphine pain pump that for relocated from the spine to the anterior abdominal wall recently-followed by Dr. bedolla, -Acute kidney injury likely ATN -started on hemodialysis March 30- -Chronic L1 compression fracture -Mixed metabolic and respiratory acidosis with -Chronic nicotine dependence, patient is a cigarette smoker -Acute COPD exacerbation in a current smoker -Essential hypertension- -sub Acute DVT in the right jugular vein and brachial vein. Superficial thrombus in the cephalic vein. On eliquis -Recent acute shock liver-recovered Plan: ICU. - Currently on eliquis, Celexa, Diflucan, dexamethasone, Neurontin, IV Remdesivir, Requip, zinc. We'll change the Hexadrol 2 IV Solu-Medrol for COPD.
[2020-04-27] MEDS: methylPREDNISolone SOD SUCCI 40 MG/ML 1 ML VIAL IV SCH (23:36)
[2020-04-28 04:16] LABS: Albumin 3.4 g/dL (3.5-5.0); Calcium 8.4 mg/dL (8.4-10.2); Potassium 4.7 mmol/L (3.5-5.1); Total Bilirubin 1.9 mg/dL (0.2-1.3); Total Protein 7.1 g/dL (6.3-8.2)
[2020-04-28 04:23] LABS: Anisocytosis Slight; Basophils % (A) 0 %; Eosinophils % (A) 0 %; HCT 31.9 % (34.0-46.0); HGB 9.4 gm/dL (11.4-16.0); Hypochromasia Marked; Lymphocytes # (A) 0.5 k/uL (1.0-4.8); Lymphocytes % (A) 4 %; MCH 29.2 pg (25.0-35.0); MCHC 29.7 g/dL (31.0-37.0); MCV 98.5 fL (80.0-100.0); Macrocytosis Slight; Mean Platelet Volume 10.5; Monocytes # (A) 0.6 k/uL (0-1.0); Monocytes % (A) 5 %; Neutrophils # (A) 10.8 k/uL (1.3-7.7); Neutrophils % (A) 91 %; Platelet Count 179 k/uL (150-450); Poikilocytosis Slight; RBC 3.23 m/uL (3.80-5.40); RDW 16.5 % (11.5-15.5); WBC 11.9 k/uL (3.8-10.6)
--- NOTE | 2020-04-28 07:18 | XR ---
EXAMINATION TYPE: XR chest 1V DATE OF EXAM: 04/28/2020 COMPARISON: 04/27/2020 HISTORY: Shortness of breath TECHNIQUE: Single frontal view of the chest is obtained. FINDINGS: Dialysis catheter is stable. There appears to be evidence of 5% right apical pneumothorax. This appears narrowed. Diffuse airspace disease is noted. Heart size stable. Arthropathy of the shou lders. IMPRESSION: 1. Interval development of a 5% right apical pneumothorax. Cannot exclude a small amount of mediastin al air. Correlate clinically. 2. Diffuse bilateral airspace disease correlate for atypical or interstitial pneumonia. Pulmonary francesca ma not excluded.
[2020-04-28] MEDS: ALBUTEROL HFA INHALER INHALATION SCH ×4 (08:11→21:39)
[2020-04-28] MEDS: PANTOPRAZOLE 40 MG/10 ML VIAL IV SCH (09:19)
[2020-04-28] MEDS: ZINC SULFATE 220 MG CAP PO SCH (09:20)
[2020-04-28] MEDS: ASCORBIC ACID 500 MG TAB PO SCH (09:20)
[2020-04-28] MEDS: FUROSEMIDE 80 MG TAB PO SCH (09:20)
[2020-04-28] MEDS: APIXABAN 2.5 MG TABLET PO SCH ×2 (09:20→20:07)
[2020-04-28] MEDS: FLUCONAZOLE 100 MG TAB PO SCH (09:20)
[2020-04-28] MEDS: CITALOPRAM HYDROBROMIDE 10 MG TAB PO SCH (09:20)
[2020-04-28] MEDS: methylPREDNISolone SOD SUCCI 40 MG/ML 1 ML VIAL IV SCH ×3 (09:20→23:27)
[2020-04-28] MEDS: HYDROmorphone 0.5 MG/0.5 ML SYRINGE IVP PRN ×4 (09:21→20:06)
--- NOTE | 2020-04-28 11:38 | PN ---
PROGRESS NOTE Patient is seen for followup for acute kidney injury and hemodialysis dependent renal failure. She was significantly volume overloaded on admission and patient has had daily dialysis for the whole week last week. Her urine output improved about 3 days ago and the frequency of dialysis was decreased. She continues to have fair urine output at about 40-70 mL an hour. Patient is maintained on oral Lasix. However, her oxygen requirements have increased and this morning she has been back on BiPAP, unable to remove the BiPAP at all. She has not been able to eat as she cannot come off the BiPAP. No worsening fever. Vital signs are reviewed. Blood pressure is 137/75, heart rate 81 per minute, patient is afebrile. Case is discussed with the nursing staff. There is some edema noted in lower extremities. Abdomen has been soft nontender. COPYRIGHT CLERK exam, patient has been moving all 4 extremities. She has been able to communicate and has been answering simple questions. LABS: Reviewed. Sodium 131, potassium 4.7, chloride 96, BUN 74, creatinine 2.49, hemoglobin 9.4 g/dL. ASSESSMENT: 1. Acute kidney injury with hemodialysis dependent renal failure with improvement in urine output suggesting recovery of renal function. However, patient is volume overloaded today. I will arrange for ultrafiltration only today for about 2.5 hours and change Lasix to IV. 2. Volume overload. Patient will be dialyzed today and Lasix will be increased to 60 mg IV q.12 hours. 3. COVID-19 pneumonia, currently, stable status post Remdesivir and convalescent sera and steroids. 4. Anemia, maintained on Aranesp. No active bleeding noted. The patient has been transfused packed RBCs. 5. Encephalopathy, currently improved post discontinuation of morphine. PLAN: Ultrafiltration today, change Lasix to IV. Repeat labs in a.m. Continue to monitor for recovery of renal function. The serum creatinine is not significantly elevated. However, patient is volume overloaded therefore we will do an ultrafiltration treatment only today. We will continue to assess her on a daily basis for need for ultrafiltration. MMODL / IJN: [id number] /
--- NOTE | 2020-04-28 14:13 | P.PN ---
Subjective Progress Note Date: 04/28/20 Principal diagnosis: Bilateral pneumonia secondary to covid 19 pneumonitis 04/25/2020, the patient remains on 100% nonrebreather facemask in addition to high flow oxygen at 15 L per minute. She is having episodes of desaturations and a pulse ox can drop as low as 86% specially when she talks or she exerts. Note that she stay most of the time in bed. She is receiving daily hemodialysis unless and without sedation was done yesterday. She is on her fourth day of Remdesivir treatment, and I'm not seeing any clinical improvement in the chest x-ray shows essentially no interval change and there is diffuse bilateral pulmonary infiltrates related to Coumadin extubated pneumonia. The patient otherwise is awake and alert. No altered mentation. She remains on oral Decadron. Diflucan was added for some oral candidiasis. She remains on zinc sulfate and vitamin C and melatonin. The white cell count today is at 10.4. Hemoglobin is at 8.2. The creatinine is down to 1.7 and noted the patient is producing urine output. Most recent LDH was 3064 from yesterday and a CRP level was 81.7. The patient is a triple-lumen in the right femoral vein and a permacath is in the right IJ. She has a functioning catheter. Patient was reevaluated today on 04/26/20, remains in the ICU, she is on 15 L high flow nasal cannula, O2 saturation is 97%. Looks comfortable, chest x-ray shows evidence of bilateral interstitial infiltrates consistent with diffuse bilateral pneumonia. Patient has IV fluid at KVO, we will undergo hemodialysis today.. And she is making adequate amount of urine. Patient completed her course of remdesivir yesterday, she remains on Decadron 6 mg IV push daily, and she received convalescent plasma on 04/25. Patient is on Eliquis. She is also on Lasix 80 mg by mouth twice a day. And on oral fluconazole Patient was reevaluated today on 05/24/20, remains in the intensive care unit, on 15 L high flow nasal cannula and 100% nonrebreather mask. Today however I plan to switch the patient to airvo. Chest x-ray continues to show evidence of diffuse infiltrate/ARDS. Patient finished treatment with remdesivir, continues to have intermittent episodes of shortness of breath with any activity and she desaturates easily once off oxygen. CBC is relatively normal hemoglobin is 8.5. Electrolytes are relatively normal. BUN is 94 creatinine 2.41, patient remains on dialysis. Patient was reevaluated today on 04/28/20, patient remains marginal at best, failure requiring 100% BiPAP, she is on 05/30, patient has a sitter at bedside, and yesterday she requested not to be placed on mechanical ventilation. CODE STATUS has been changed to DO NOT RESUSCITATE CODE STATUS. Chest x-ray today continues to show bilateral interstitial infiltrates, and she has now a small 5% right-sided pneumothorax which seems to be spontaneous in nature. Not large vannessa ugh to consider any intervention at this point. Her WBC count today is 11.9 hemoglobin is 9.4. Electrolytes are normal BUN is 74 creatinine 2.49. Alkaline phosphatase remains a bit elevated. And she was noted to have elevated interleukin-6, 37.3 Objective - Vital Signs Vital signs: Vital Signs Temp 97.8 F 04/28/20 12:00 Pulse 86 04/28/20 13:00 Resp 25 H 04/28/20 13:00 BP 99/83 04/28/20 13:00 Pulse Ox 91 L 04/28/20 13:00 Intake & Output 04/27/20 04/28/20 04/28/20 18:59 06:59 18:59 Intake Total 350 Output Total 2054 322 255 Balance -1705 -322 -255 Weight 85 kg 85.2 kg Intake: Oral 350 Output: Urine 355 322 255 Hemodialysis 1700 Other: Voiding Method Indwelling Catheter Indwelling Catheter - Exam Physical Exam: Revealed a 65-year-old female in no distress, on BiPAP. And at times on airvo Head: Atraumatic, normocephalic. HEENT:[Neck is supple.] [No neck masses.] [No thyromegaly.] [No JVD.] PERRLA, EOMI, neck disc, Chest: [Symmetrical chest expansion, crackles at the bases bilaterally. Cardiac Exam: [Normal S1 and S2, no S3 gallop, no murmur.] Abdomen: [Soft, nontender, no megaly, no rebound, no guarding, normal bowel sounds.] Extremities: [No clubbing, no edema, no cyanosis.] Right femoral catheter in the right femoral vein. Neurological Exam: [No focal neurologic deficit.] Alert and oriented 3. Psychiatric: Normal mood, affect , mentation seems to be slow. Confused at times. Skin: No rashes. - Labs CBC & Chem 7: 04/28/20 03:39 04/28/20 03:39 Labs: Abnormal Lab Results - Last 24 Hours (Table) 04/25/20 04/28/20 04/28/20 Range/Units 04:26 03:39 03:39 WBC 11.9 H (3.8-10.6) k/uL RBC 3.23 L (3.80-5.40) m/uL Hgb 9.4 L (11.4-16.0) gm/dL Hct 31.9 L (34.0-46.0) % MCHC 29.7 L (31.0-37.0) g/dL RDW 16.5 H (11.5-15.5) % Neutrophils # 10.8 H (1.3-7.7) k/uL Lymphocytes # 0.5 L (1.0-4.8) k/uL Sodium 131 L (137-145) mmol/L Chloride 96 L (98-107) mmol/L BUN 74 H (7-17) mg/dL Creatinine 2.49 H (0.52-1.04) mg/dL Glucose 136 H (74-99) mg/dL Total Bilirubin 1.9 H (0.2-1.3) mg/dL ALT 37 H (4-34) U/L Alkaline Phosphatase 186 H (38-126) U/L Albumin 3.4 L (3.5-5.0) g/dL Interleukin 6 37.3 H (<6.4) pg/mL Assessment and Plan Assessment: Impression: Acute hypoxic episode of failure secondary to covid 19 pneumonitis. Patient is status post full treatment with remdesivir, convalescent plasma, and she remains on Decadron as well as zinc. Acute kidney injury, patient is on hemodialysis. Acute shock liver, recovering. This is secondary to Covid 19 Previous history of CVA without any major neurological deficits. History of hypertension. Thrombocytopenia, recovered. History of GERD. Chronic back pain for which she receives morphine via pump in place. Questionable cholecystitis with abnormal liver enzymes, improved. Acute deep vein thromboses in the right IJ and brachial vein, remains on Eliquis. Recommendation: Continue BiPAP. Continue meds as noted above. Close follow-up in the ICU. Continue hemodialysis. Titrate FiO2 accordingly. Continue to monitor her right sided spontaneous pneumothorax. Continue GI and DVT prophylaxis. CODE STATUS change by admitting physician to DO NOT RESUSCITATE CODE STATUS Prognosis seems to be extremely poor Time with Patient: Less than 30
[2020-04-28] MEDS: FUROSEMIDE 10 MG/ML 10 ML VIAL IV SCH (20:07)
[2020-04-28] MEDS: QUEtiapine 50 MG TAB PO SCH (20:07)
[2020-04-28] MEDS: GABAPENTIN 100 MG CAP PO SCH (20:07)
[2020-04-28] MEDS ORDERED: QUEtiapine 25 MG TAB PO STA (21:56)
--- NOTE | 2020-04-28 21:56 | P.PN ---
Progress Note - Text Progress Note Date: 04/28/20 Chief Complaint: Tired Hospital course: Patient is 64-year-old female, - family doctor is Dr. pam Baker. Chronic stable medical conditions include chronic pain currently on a morphine pump , hypertension, CHF, and prior stroke . Recently in the hospital from March 28 through April 13. Admitted with-acute metabolic encephalopathy felt to be multifactorial, severe ischemic hepatitis from hypotension, acute kidney injury, likely ATN started on hemodialysis, septic shock, acute hypoxic and hypercapnic respiratory failure, metabolic and respiratory acidosis, COPD exacerbation. Empirically put on antibiotics source of infection unclear. Morphine dose in the pain pump decreased by Dr. Vee.patient felt to have cholecystitis. because of being clinically unstable decided not to proceed with any surgery. Patient responded to antibiotics.Doppler ultrasound confirmed DVT in the right upper extremity. Started on IV heparin. Then switch to eliquis. Patient advised to go to rehab. Patient and daughter decided to take her home. Patient now readmitted on April 17. Admitted with-acute hypoxic and hypercapnic respiratory failure, related to acute COVID 19 pneumonia, acute kidney injury. Started on hemodialysis. Placed on morphine drip. Received a unit of blood. Requiring BiPAP. Status post Remdesivir. [id number] placed on Airvo. And high flow. Decreased oral intake. Occasionally delirious. Has chronic pain. Review of systems: Attempted for constitutional, cardiovascular, GI, pulmonary. relevant finding as above Active Medications Albuterol Sulfate (Albuterol Hfa Inhaler) 2 puff INHALATION RT-QID [facility] Last Admin: 04/28/20 21:39 Dose: 2 puff Documented by: Apixaban (Apixaban 2.5 Mg Tablet) 2.5 mg PO BID [facility] Last Admin: 04/28/20 20:07 Dose: 2.5 mg Documented by: Ascorbic Acid (Ascorbic Acid 500 Mg Tab) 500 mg PO DAILY [facility] Last Admin: 04/28/20 09:20 Dose: 500 mg Documented by: Citalopram Hydrobromide (Citalopram Hydrobromide 10 Mg Tab) 10 mg PO DAILY [facility] Last Admin: 04/28/20 09:20 Dose: 10 mg Documented by: Darbepoetin Clinton (Darbepoetin Clinton 60 Mcg/0.3 Ml Syringe) 60 mcg SQ Q7D [facility] Last Admin: 04/22/20 12:04 Dose: 60 mcg Documented by: Fluconazole (Fluconazole 100 Mg Tab) 100 mg PO DAILY [facility] Last Admin: 04/28/20 09:20 Dose: 100 mg Documented by: Furosemide (Furosemide 10 Mg/Ml 10 Ml Vial) 60 mg IV Q12HR [facility] Last Admin: 04/28/20 20:07 Dose: 60 mg Documented by: Gabapentin (Gabapentin 100 Mg Cap) 100 mg PO [facility] Last Admin: 04/28/20 20:07 Dose: 100 mg Documented by: Hydromorphone HCl (Hydromorphone 0.5 Mg/0.5 Ml Syringe) 0.5 mg IVP Q2HR PRN PRN Reason: Pain Last Admin: 04/28/20 20:06 Dose: 0.5 mg Documented by: Lorazepam (Lorazepam 2 Mg/Ml Inj) 0.5 mg IV Q4HR PRN PRN Reason: Anxiety Methylprednisolone Sodium Succinate (Methylprednisolone Sod Succi 40 Mg/Ml 1 Ml Vial) 40 mg IV Q8HR [facility] Last Admin: 04/28/20 16:32 Dose: 40 mg Documented by: Miscellaneous Information (Phosphorus Replacement Protoco 1 Each Misc) 1 each MISCELLANE DAILY PRN; Protocol PRN Reason: Per Protocol Naloxone HCl (Naloxone 0.4 Mg/Ml 1 Ml Vial) 0.2 mg IV Q2M PRN PRN Reason: Opioid Reversal Ondansetron HCl (Ondansetron 4 Mg/2 Ml Vial) 4 mg IVP Q6HR PRN PRN Reason: Nausea And Vomiting Last Admin: 04/27/20 23:51 Dose: 4 mg Documented by: Pantoprazole Sodium (Pantoprazole 40 Mg Tablet) 40 mg PO DAILY [facility] Quetiapine Fumarate (Quetiapine 50 Mg Tab) 50 mg PO [facility] Last Admin: 04/28/20 20:07 Dose: 50 mg Documented by: Ropinirole HCl (Ropinirole Hcl 1 Mg Tab) 1 mg PO [facility] Last Admin: 04/28/20 20:07 Dose: 1 mg Documented by: Sodium Chloride (Saline Nasal Gel 14.1 Gm Tube) 1 applic TOPICAL Q4HR PRN PRN Reason: Dry Nasal Passages Zinc Sulfate (Zinc Sulfate 220 Mg Cap) 220 mg PO DAILY [facility] Last Admin: 04/28/20 09:20 Dose: 220 mg Documented by: Physical examination: VITAL SIGNS: 97.9, 105, 20, 128/75, 91% on Airvo, GENERAL: Laying awake lethargic EYES: Pupils equal. Conjunctiva pale. 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 SUPERFICIAL THROMBUS IN THE CEPHALIC VEIN. renal function is normal in December 2018 Assessment: -Acute on chronic hypoxic and hypercapnic respiratory failure from COVID 19 worsening -Acute COVID 19 pneumonia -Chronic pain syndrome with a morphine pain pump that for relocated from the spine to the anterior abdominal wall recently-followed by Dr. bedolla, -Acute kidney injury likely ATN -started on hemodialysis March 30- -Chronic L1 compression fracture -Mixed metabolic and respiratory acidosis with -Chronic nicotine dependence, patient is a cigarette smoker -Acute COPD exacerbation in a current smoker-slow to respond -Essential hypertension- -sub Acute DVT in the right jugular vein and brachial vein. Superficial thrombus in the cephalic vein. On eliquis -Recent acute shock liver-recovered Plan: ICU. - Currently on eliquis, Celexa, Diflucan, dexamethasone, Neurontin, IV Remdesivir, Requip, zinc. On IV Solu-Medrol. Requiring more oxygen. We'll increase the evening dose of Seroquel 100 mg daily at bedtime.
[2020-04-28] MEDS: LORazepam 2 MG/ML INJ IV PRN (23:27)
[2020-04-29 05:03] LABS: Basophils # (A) 0.1 k/uL (0-0.2); Basophils % (A) 1 %; Eosinophils # (A) 0.1 k/uL (0-0.7); Eosinophils % (A) 0 %; HCT 30.2 % (34.0-46.0); HGB 9.5 gm/dL (11.4-16.0); Hypochromasia Moderate; Lymphocytes # (A) 0.5 k/uL (1.0-4.8); Lymphocytes % (A) 3 %; MCHC 31.5 g/dL (31.0-37.0); MCV 95.3 fL (80.0-100.0); Mean Platelet Volume 10.3; Monocytes # (A) 0.6 k/uL (0-1.0); Monocytes % (A) 4 %; Neutrophils # (A) 13.4 k/uL (1.3-7.7); Neutrophils % (A) 91 %; Platelet Count 226 k/uL (150-450); Poikilocytosis Slight; RBC 3.17 m/uL (3.80-5.40); RDW 15.9 % (11.5-15.5); WBC 14.7 k/uL (3.8-10.6)
[2020-04-29 05:05] LABS: Hepatitis B Surface AB- Quant 3.5 mIU/mL; Hepatitis B Surface Antibody Non-Reactive (Non-Reactive); Hepatitis B Surface Antigen Non-Reactive (Non-Reactive)
[2020-04-29 05:14] LABS: Albumin 3.3 g/dL (3.5-5.0); C Reactive Protein 35.1 mg/L (<10.0); Calcium 8.4 mg/dL (8.4-10.2); Potassium 5.5 mmol/L (3.5-5.1); Total Bilirubin 1.9 mg/dL (0.2-1.3); Total Protein 6.8 g/dL (6.3-8.2)
--- NOTE | 2020-04-29 07:48 | XR ---
EXAMINATION TYPE: XR chest 1V portable DATE OF EXAM: 04/29/2020 COMPARISON: Chest x-ray 04/28/2020 HISTORY: Follow-up, abnormal chest x-ray TECHNIQUE: Single frontal view of the chest is obtained. FINDINGS: There is improved aeration as compared to prior exam. Persistent mixed interstitial and ai rspace disease is present. Small left apical pneumothorax is estimated at only 5%. Small right apical pneumothorax is also present, similar size. IMPRESSION: Bilateral pneumothoraces. A Red level critical message alert has been initiated for Subhash Lai MD via the [employer] System on 04/29/2020 7:45 AM. This message alert has been sent to Subhash Lai MD via t he preferences provided by the clinician for the receipt of Radiology Critical Findings. Message ID [id number].
[2020-04-29] MEDS: ALBUTEROL HFA INHALER INHALATION SCH ×4 (08:31→20:32)
[2020-04-29] MEDS ORDERED: PANTOPRAZOLE 40 MG TABLET PO SCH (09:00)
[2020-04-29] MEDS: methylPREDNISolone SOD SUCCI 40 MG/ML 1 ML VIAL IV SCH ×3 (09:29→23:32)
[2020-04-29] MEDS: APIXABAN 2.5 MG TABLET PO SCH ×2 (09:30→20:19)
[2020-04-29] MEDS: FUROSEMIDE 10 MG/ML 10 ML VIAL IV SCH ×2 (09:30→20:19)
[2020-04-29] MEDS: ZINC SULFATE 220 MG CAP PO SCH (09:30)
[2020-04-29] MEDS: ASCORBIC ACID 500 MG TAB PO SCH (09:30)
[2020-04-29] MEDS: CITALOPRAM HYDROBROMIDE 10 MG TAB PO SCH (09:30)
[2020-04-29] MEDS: FLUCONAZOLE 100 MG TAB PO SCH (09:30)
[2020-04-29] MEDS: ONDANSETRON 4 MG/2 ML VIAL IVP PRN (09:36)
[2020-04-29 09:52] LABS: Ferritin 1935.3 ng/mL (10.0-291.0)
[2020-04-29] MEDS: HYDROmorphone 0.5 MG/0.5 ML SYRINGE IVP PRN ×2 (12:51→23:39)
[2020-04-29] MEDS: DARBEPOETIN ALFA 60 MCG/0.3 ML SYRINGE SQ SCH (13:36)
--- NOTE | 2020-04-29 13:47 | P.PN ---
Subjective Patient is seen in follow-up for acute kidney injury, currently hemodialysis dependent. She underwent hemodialysis yesterday for 1-1/2 hours but treatment had to be shortened due to hemodynamic instability. She still requiring high amounts of oxygen. Oral intake is poor. Blood pressure is stable. Potassium is 5.5 today. Vital signs stable. Blood pressure 141/87. Requiring high amounts of oxygen. No gross edema noted. Exam discussed with the nurse. Objective - Vital Signs Vital signs: Vital Signs Temp 98.5 F 04/29/20 08:00 Pulse 90 04/29/20 11:00 Resp 25 H 04/29/20 11:00 BP 141/87 04/29/20 11:00 Pulse Ox 89 L 04/29/20 11:00 Intake & Output 04/28/20 04/29/20 04/29/20 18:59 06:59 18:59 Output Total 1623 927 563 Balance -1623 -470 -563 Weight 84.6 kg Output: Urine 373 470 563 Hemodialysis 1250 Other: Voiding Method Indwelling Catheter Indwelling Catheter Indwelling Catheter - Labs CBC & Chem 7: 04/29/20 04:20 04/29/20 04:20 Labs: Abnormal Lab Results - Last 24 Hours (Table) 04/29/20 04/29/20 04/29/20 Range/Units 04:20 04:20 04:20 WBC 14.7 H (3.8-10.6) k/uL RBC 3.17 L (3.80-5.40) m/uL Hgb 9.5 L (11.4-16.0) gm/dL Hct 30.2 L (34.0-46.0) % RDW 15.9 H (11.5-15.5) % Neutrophils # 13.4 H (1.3-7.7) k/uL Lymphocytes # 0.5 L (1.0-4.8) k/uL D-Dimer 2.55 H (<0.60) mg/L FEU Sodium 128 L (137-145) mmol/L Potassium 5.5 H (3.5-5.1) mmol/L Chloride 94 L (98-107) mmol/L BUN 102 H* (7-17) mg/dL Creatinine 2.94 H (0.52-1.04) mg/dL Glucose 129 H (74-99) mg/dL Ferritin 1935.3 H (10.0-291.0) ng/mL Total Bilirubin 1.9 H (0.2-1.3) mg/dL Alkaline Phosphatase 171 H (38-126) U/L Lactate Dehydrogenase 1792 H (313-618) U/L C-Reactive Protein 35.1 H (<10.0) mg/L Albumin 3.3 L (3.5-5.0) g/dL Assessment and Plan Plan: Assessment: 1. Acute kidney injury, currently hemodialysis dependent secondary to nonrecovered ATN from severe sepsis last admission. She is now nonoliguric. Disproportionately elevated BUN secondary to IV steroids. 2. Volume overload. Improving with ultrafiltration and diuresis. 3. COVID-19 pneumonia maintained on zinc and steroids; s/p remdesivir. 4. Altered mental status secondary to infection and morphine. Also hypoxic. Improved. 5. Anemia secondary to underlying renal disease maintained on Aranesp. Status post blood transfusion this admission. No active bleeding. 6. Hyperphosphatemia secondary to chronic kidney disease. Phosphorus was initially low and was replaced. 7. Hyponatremia secondary to acute kidney injury. 8. Hyperkalemia secondary to acute kidney injury. 9. Bilateral pneumothoraces. Plan: Hemodialysis today. Maintain Lasix. Accurate I's and O's. Continue to monitor for renal recovery. Wean FiO2. Overall prognosis guarded.
--- NOTE | 2020-04-29 15:23 | P.PN ---
Subjective Progress Note Date: 04/29/20 Principal diagnosis: Bilateral pneumonia secondary to covid 19 pneumonitis 04/25/2020, the patient remains on 100% nonrebreather facemask in addition to high flow oxygen at 15 L per minute. She is having episodes of desaturations and a pulse ox can drop as low as 86% specially when she talks or she exerts. Note that she stay most of the time in bed. She is receiving daily hemodialysis unless and without sedation was done yesterday. She is on her fourth day of Remdesivir treatment, and I'm not seeing any clinical improvement in the chest x-ray shows essentially no interval change and there is diffuse bilateral pulmonary infiltrates related to Coumadin extubated pneumonia. The patient otherwise is awake and alert. No altered mentation. She remains on oral Decadron. Diflucan was added for some oral candidiasis. She remains on zinc sulfate and vitamin C and melatonin. The white cell count today is at 10.4. Hemoglobin is at 8.2. The creatinine is down to 1.7 and noted the patient is producing urine output. Most recent LDH was 3064 from yesterday and a CRP level was 81.7. The patient is a triple-lumen in the right femoral vein and a permacath is in the right IJ. She has a functioning catheter. Patient was reevaluated today on 04/26/20, remains in the ICU, she is on 15 L high flow nasal cannula, O2 saturation is 97%. Looks comfortable, chest x-ray shows evidence of bilateral interstitial infiltrates consistent with diffuse bilateral pneumonia. Patient has IV fluid at KVO, we will undergo hemodialysis today.. And she is making adequate amount of urine. Patient completed her course of remdesivir yesterday, she remains on Decadron 6 mg IV push daily, and she received convalescent plasma on 04/25. Patient is on Eliquis. She is also on Lasix 80 mg by mouth twice a day. And on oral fluconazole Patient was reevaluated today on 05/24/20, remains in the intensive care unit, on 15 L high flow nasal cannula and 100% nonrebreather mask. Today however I plan to switch the patient to airvo. Chest x-ray continues to show evidence of diffuse infiltrate/ARDS. Patient finished treatment with remdesivir, continues to have intermittent episodes of shortness of breath with any activity and she desaturates easily once off oxygen. CBC is relatively normal hemoglobin is 8.5. Electrolytes are relatively normal. BUN is 94 creatinine 2.41, patient remains on dialysis. Patient was reevaluated today on 04/28/20, patient remains marginal at best, failure requiring 100% BiPAP, she is on 05/30, patient has a sitter at bedside, and yesterday she requested not to be placed on mechanical ventilation. CODE STATUS has been changed to DO NOT RESUSCITATE CODE STATUS. Chest x-ray today continues to show bilateral interstitial infiltrates, and she has now a small 5% right-sided pneumothorax which seems to be spontaneous in nature. Not large vannessa ugh to consider any intervention at this point. Her WBC count today is 11.9 hemoglobin is 9.4. Electrolytes are normal BUN is 74 creatinine 2.49. Alkaline phosphatase remains a bit elevated. And she was noted to have elevated interleukin-6, 37.3 Patient was reevaluated today on 04/29/20, remains in the ICU, and remains on relatively high FiO2/nonrebreather mask, 100%, O2 saturation remains very marginal and in the high 80s and low 90s at best. Status remains DO NOT RESUSCITATE, patient is also receiving hemodialysis and she remains on Lasix at 60 mg twice a day. She definitely has been in negative fluid balance over the last few days. Her hemodialysis yesterday was done and 1.25 L were removed. O2 saturation fluctuating between 86% and 94%. Patient had a follow-up chest x-ray continues to show bilateral interstitial infiltrates, and now she has small tiny pneumothoraces in both sites. Very minimal. And no need for intervention for either one of them. WBC count is 14.7 hemoglobin is 9.5. Sodium is 128 potassium 5.5 BUN is 102 creatinine is 2.94. LDH remains high at 1792 and C- reactive protein is 35.1. Objective - Vital Signs Vital signs: Vital Signs Temp 99.1 F 04/29/20 12:00 Pulse 90 04/29/20 15:00 Resp 19 04/29/20 15:00 BP 150/97 04/29/20 15:00 Pulse Ox 85 L 04/29/20 15:00 Intake & Output 04/28/20 04/29/20 04/29/20 18:59 06:59 18:59 Output Total 1623 470 623 Balance -1623 -470 -623 Weight 84.6 kg Output: Urine 373 470 623 Hemodialysis 1250 Other: Voiding Method Indwelling Catheter Indwelling Catheter Indwelling Catheter - Exam Physical Exam: Patient was not physically examined. Evaluated visually, seems to be in no distress, but she is on relatively high FiO2. - Labs CBC & Chem 7: 04/29/20 04:20 04/29/20 04:20 Labs: Abnormal Lab Results - Last 24 Hours (Table) 04/29/20 04/29/20 04/29/20 Range/Units 04:20 04:20 04:20 WBC 14.7 H (3.8-10.6) k/uL RBC 3.17 L (3.80-5.40) m/uL Hgb 9.5 L (11.4-16.0) gm/dL Hct 30.2 L (34.0-46.0) % RDW 15.9 H (11.5-15.5) % Neutrophils # 13.4 H (1.3-7.7) k/uL Lymphocytes # 0.5 L (1.0-4.8) k/uL D-Dimer 2.55 H (<0.60) mg/L FEU Sodium 128 L (137-145) mmol/L Potassium 5.5 H (3.5-5.1) mmol/L Chloride 94 L (98-107) mmol/L BUN 102 H* (7-17) mg/dL Creatinine 2.94 H (0.52-1.04) mg/dL Glucose 129 H (74-99) mg/dL Ferritin 1935.3 H (10.0-291.0) ng/mL Total Bilirubin 1.9 H (0.2-1.3) mg/dL Alkaline Phosphatase 171 H (38-126) U/L Lactate Dehydrogenase 1792 H (313-618) U/L C-Reactive Protein 35.1 H (<10.0) mg/L Albumin 3.3 L (3.5-5.0) g/dL Assessment and Plan Assessment: Impression: Acute hypoxic episode of failure secondary to covid 19 pneumonitis. Patient is status post full treatment with remdesivir, convalescent plasma, and she remains on Decadron as well as zinc. Acute kidney injury, patient is on hemodialysis. Acute shock liver, recovering. This is secondary to Covid 19 Previous history of CVA without any major neurological deficits. History of hypertension. Thrombocytopenia, recovered. History of GERD. Chronic back pain for which she receives morphine via pump in place. Questionable cholecystitis with abnormal liver enzymes, improved. Acute deep vein thromboses in the right IJ and brachial vein, remains on Eliquis. Bilateral spontaneous pneumothoraces, both are atypical and minimal. Recommendation: High FiO2, could use BiPAP, preferably high flow airvo Continue meds as noted above. Close follow-up in the ICU. Continue hemodialysis. Continue to monitor daily x-rays for spontaneous pneumothoraces bilaterally. Continue GI and DVT prophylaxis. CODE STATUS change by admitting physician to DO NOT RESUSCITATE CODE STATUS Prognosis seems to be extremely poor Time with Patient: Less than 30
--- NOTE | 2020-04-29 17:10 | P.PN ---
Progress Note - Text Progress Note Date: 04/29/20 Chief Complaint: Tired Hospital course: Patient is 64-year-old female, - family doctor is Dr. pam Baker. Chronic stable medical conditions include chronic pain currently on a morphine pump , hypertension, CHF, and prior stroke . Recently in the hospital from March 28 through April 13. Admitted with-acute metabolic encephalopathy felt to be multifactorial, severe ischemic hepatitis from hypotension, acute kidney injury, likely ATN started on hemodialysis, septic shock, acute hypoxic and hypercapnic respiratory failure, metabolic and respiratory acidosis, COPD exacerbation. Empirically put on antibiotics source of infection unclear. Morphine dose in the pain pump decreased by Dr. Vee.patient felt to have cholecystitis. because of being clinically unstable decided not to proceed with any surgery. Patient responded to antibiotics.Doppler ultrasound confirmed DVT in the right upper extremity. Started on IV heparin. Then switch to eliquis. Patient advised to go to rehab. Patient and daughter decided to take her home. Patient now readmitted on April 17. Admitted with-acute hypoxic and hypercapnic respiratory failure, related to acute COVID 19 pneumonia, acute kidney injury. Started on hemodialysis. Received a unit of blood. Requiring BiPAP. Status post Remdesivir. Occasional delirium. 5% pneumothorax bilateral [id number] on high flow Airvo, and nonrebreather. Desaturates very easily. Very short of breath at rest. Patient has 5% pneumothorax bilateral Review of systems: Attempted for constitutional, cardiovascular, GI, pulmonary. relevant finding as above Active Medications Albuterol Sulfate (Albuterol Hfa Inhaler) 2 puff INHALATION RT-QID [facility] Last Admin: 04/29/20 15:39 Dose: Not Given Documented by: Apixaban (Apixaban 2.5 Mg Tablet) 2.5 mg PO BID [facility] Last Admin: 04/29/20 09:30 Dose: 2.5 mg Documented by: Ascorbic Acid (Ascorbic Acid 500 Mg Tab) 500 mg PO DAILY [facility] Last Admin: 04/29/20 09:30 Dose: 500 mg Documented by: Citalopram Hydrobromide (Citalopram Hydrobromide 10 Mg Tab) 10 mg PO DAILY [facility] Last Admin: 04/29/20 09:30 Dose: 10 mg Documented by: Darbepoetin Clinton (Darbepoetin Clinton 60 Mcg/0.3 Ml Syringe) 60 mcg SQ Q7D [facility] Last Admin: 04/29/20 13:36 Dose: 60 mcg Documented by: Fluconazole (Fluconazole 100 Mg Tab) 100 mg PO DAILY [facility] Last Admin: 04/29/20 09:30 Dose: 100 mg Documented by: Furosemide (Furosemide 10 Mg/Ml 10 Ml Vial) 60 mg IV Q12HR [facility] Last Admin: 04/29/20 09:30 Dose: 60 mg Documented by: Gabapentin (Gabapentin 100 Mg Cap) [address] [facility] Last Admin: 04/28/20 20:07 Dose: 100 mg Documented by: Hydromorphone HCl (Hydromorphone 0.5 Mg/0.5 Ml Syringe) 0.5 mg IVP Q2HR PRN PRN Reason: Pain Last Admin: 04/29/20 12:51 Dose: 0.5 mg Documented by: Lorazepam (Lorazepam 2 Mg/Ml Inj) 0.5 mg IV Q4HR PRN PRN Reason: Anxiety Last Admin: 04/28/20 23:27 Dose: 0.5 mg Documented by: Methylprednisolone Sodium Succinate (Methylprednisolone Sod Succi 40 Mg/Ml 1 Ml Vial) 40 mg IV Q8HR [facility] Last Admin: 04/29/20 16:20 Dose: 40 mg Documented by: Miscellaneous Information (Phosphorus Replacement Protoco 1 Each Misc) 1 each MISCELLANE DAILY PRN; Protocol PRN Reason: Per Protocol Naloxone HCl (Naloxone 0.4 Mg/Ml 1 Ml Vial) 0.2 mg IV Q2M PRN PRN Reason: Opioid Reversal Ondansetron HCl (Ondansetron 4 Mg/2 Ml Vial) 4 mg IVP Q6HR PRN PRN Reason: Nausea And Vomiting Last Admin: 04/29/20 09:36 Dose: 4 mg Documented by: Pantoprazole Sodium (Pantoprazole 40 Mg Tablet) 40 mg PO DAILY [facility] Last Admin: 04/29/20 09:30 Dose: 40 mg Documented by: Quetiapine Fumarate (Quetiapine 25 Mg Tab) [address] [facility] Ropinirole HCl (Ropinirole Hcl 1 Mg Tab) 1 mg PO HS [facility] Last Admin: 04/28/20 20:07 Dose: 1 mg Documented by: Sodium Chloride (Saline Nasal Gel 14.1 Gm Tube) 1 applic TOPICAL Q4HR PRN PRN Reason: Dry Nasal Passages Zinc Sulfate (Zinc Sulfate 220 Mg Cap) 220 mg PO DAILY [facility] Last Admin: 04/29/20 09:30 Dose: 220 mg Documented by: Physical examination: VITAL SIGNS: 97.5, 97, 26, 146.90, 91% on high flow oxygen GENERAL: Laying , tired and lethargic EYES: Pupils equal. Conjunctiva pale. Psych: Does answer questions rest of physical exam as per form block maker and nursing INVESTIGATIONS, reviewed in the clinical context: White count 14.7 hemoglobin 9.5 platelets 226 d-dimer 2.55 sodium 128 potassium 5.5 bun 102 creatinine 2.94 Chest x-ray from April 29-bilateral pneumothoraxes 5%. Bilateral infiltrates consolidation white count 6 hemoglobin 7.9 platelets 166bun 44 creatinine 1.53 LDH 2037 CRP 61.2 Previous testing including from last admission Hepatitis B surface antigen, core IgM antibody, hepatitis C IgG antibody all nonreactive Hepatitis A IgM antibody nonreactive Doppler-DVT IN THE JUGULAR VEIN AND THE BRACHIAL VEIN. SUPERFICIAL THROMBUS IN THE CEPHALIC VEIN. renal function is normal in December 2018 Assessment: -Acute on chronic hypoxic and hypercapnic respiratory failure from COVID 19 - slow to respond -Acute COVID 19 pneumonia-slow to respond -Bilateral 5% pneumothorax -Chronic pain syndrome with a morphine pain pump that for relocated from the spine to the anterior abdominal wall recently-followed by Dr. bedolla, -Acute kidney injury likely ATN -started on hemodialysis March 30- -Chronic L1 compression fracture -Mixed metabolic and respiratory acidosis with -Chronic nicotine dependence, patient is a cigarette smoker -Acute COPD exacerbation in a current smoker-slow to respond -Essential hypertension- -sub Acute DVT in the right jugular vein and brachial vein. Superficial thrombus in the cephalic vein. On eliquis -Recent acute shock liver-recovered -Hyperkalemia from renal failure -Hyponatremia Plan: ICU. - Currently on eliquis, Celexa, Diflucan, dexamethasone, Neurontin, IV Remdesivir, Requip, zinc. On IV Solu-Medrol. Requiring more oxygen. We'll increase the evening dose of Seroquel 100 mg daily at bedtime. Spoke to patient daughter almita given up-to-date. Consult dietitian to get TPN and lipids.. Patient will need a PICC line.
[2020-04-29] MEDS: LORazepam 2 MG/ML INJ IV PRN ×2 (20:12→23:32)
[2020-04-29] MEDS: GABAPENTIN 100 MG CAP PO SCH (20:19)
[2020-04-29] MEDS ORDERED: QUEtiapine 25 MG TAB PO SCH (21:00)
[2020-04-30] MEDS ORDERED: ATROPINE OPHTH SOLN 1% 5ML BTL SUBLINGUAL PRN (03:13)
[2020-04-30] MEDS ORDERED: MORPHINE SULFATE (100 MG/2 ML) 100 MG in SODIUM CHLORIDE 0.9% 100 ML IV SCH (03:15)
[2020-04-30 04:04] VITALS: BP 126/87; PULSE 155; RESP 32; TEMP 98
[2020-04-30] MEDS: HYDROmorphone 0.5 MG/0.5 ML SYRINGE IVP PRN (05:10)
--- NOTE | 2020-04-30 22:09 | P.DS ---
Providers Date of admission: 04/17/20 14:12 Expected date of discharge: 04/30/20 Attending physician: Miguel Kelly Consults: 04/17/20 14:11 Consult Physician Urgent Consulting Provider: Ermias Linares Consult Reason/Comments: pulmonary edema Do you want consulting provider notified?: Yes 04/17/20 14:12 Consult Physician Urgent Consulting Provider: Anahi Delgadillo Consult Reason/Comments: chronic renal failure, pulmonary edema Do you want consulting provider notified?: Yes 04/17/20 14:16 Consult Physician Urgent Consulting Provider: Jossie Hernandez Consult Reason/Comments: Pulmonary edema, elevated troponin, anemia Do you want consulting provider notified?: Yes 04/19/20 16:34 Consult Physician Routine Consulting Provider: Sheree Vee Consult Reason/Comments: d/c morphine pump Do you want consulting provider notified?: Yes 04/20/20 12:20 Consult Physician Routine Consulting Provider: Subhash Reyes Consult Reason/Comments: pain pump management Do you want consulting provider notified?: Yes Hospital Course: Chief Complaint: Tired Hospital course: Patient is 64-year-old female, - family doctor is Dr. pam Baker. Chronic stable medical conditions include chronic pain currently on a morphine pump , hypertension, CHF, and prior stroke . Recently in the hospital from March 28 through April 13. Admitted with-acute metabolic encephalopathy felt to be multifactorial, severe ischemic hepatitis from hypotension, acute kidney injury, likely ATN started on hemodialysis, septic shock, acute hypoxic and hypercapnic respiratory failure, metabolic and respiratory acidosis, COPD exacerbation. Empirically put on antibiotics source of infection unclear. Morphine dose in the pain pump decreased by Dr. Vee.patient felt to have cholecystitis. because of being clinically unstable decided not to proceed with any surgery. Patient responded to antibiotics.Doppler ultrasound confirmed DVT in the right upper extremity. Started on IV heparin. Then switch to eliquis. Patient advised to go to rehab. Patient and daughter decided to take her home. Patient now readmitted on April 17. Admitted with-acute hypoxic and hype rcapnic respiratory failure, related to acute COVID 19 pneumonia, acute kidney injury. Started on hemodialysis. Received a unit of blood. Requiring BiPAP. Status post Remdesivir. Occasional delirium. 5% pneumothorax bilateral. Patient gradually tolerated. Patient terms of respiratory status. I did update patient's daughter overall guarded prognosis. Hlzji-[id number] hours of today patient. Went into Respiratory distress. Succumb to the same. Consultation: Dr. Lai and colleagues from pulmonary Nephrology INVESTIGATIONS, reviewed in the clinical context: White count 14.7 hemoglobin 9.5 platelets 226 d-dimer 2.55 sodium 128 potassium 5.5 bun 102 creatinine 2.94 Chest x-ray from April 29-bilateral pneumothoraxes 5%. Bilateral infiltrates consolidation white count 6 hemoglobin 7.9 platelets 166bun 44 creatinine 1.53 LDH 2036 CRP 61.2 Previous testing including from last admission Hepatitis B surface antigen, core IgM antibody, hepatitis C IgG antibody all nonreactive Hepatitis A IgM antibody nonreactive Doppler-DVT IN THE JUGULAR VEIN AND THE BRACHIAL VEIN. SUPERFICIAL THROMBUS IN THE CEPHALIC VEIN. renal function is normal in December 2018 Assessment: -Acute on chronic hypoxic and hypercapnic respiratory failure from COVID 19 - slow to respond -Acute COVID 19 pneumonia-slow to respond -Bilateral 5% pneumothorax -Chronic pain syndrome with a morphine pain pump that for relocated from the spine to the anterior abdominal wall recently-followed by Dr. bedolla, -Acute kidney injury likely ATN -started on hemodialysis March 30- -Chronic L1 compression fracture -Mixed metabolic and respiratory acidosis with -Chronic nicotine dependence, patient is a cigarette smoker -Acute COPD exacerbation in a current smoker-slow to respond -Essential hypertension- -sub Acute DVT in the right jugular vein and brachial vein. Superficial thrombus in the cephalic vein. On eliquis -Recent acute shock liver-recovered -Hyperkalemia from renal failure -Hyponatremia Cause of : COVID 19 pneumonia Disposition: Patient Plan - Discharge Summary Discharge Rx Participant: Yes New Discharge Prescriptions: No Action Ergocalciferol (Vitamin D2) [Drisdol] 50,000 unit PO [facility] Cyanocobalamin (Vitamin B-12) [Vitamin B-12] 1,000 mcg PO DAILY Morphine/Bupivacaine Pump 1 dose INTRATHECA CONTINUOUS rOPINIRole HCL [Requip] 1 mg PO HS Citalopram Hydrobromide [CeleXA] 10 mg PO DAILY tab Ipratropium-Albuterol Nebulize [Duoneb 0.5 mg-3 mg/3 ml Soln] 3 ml INHALATION RT-QID ml Nicotine 21Mg/24Hr Patch [Habitrol] 1 patch TRANSDERM DAILY patch Pantoprazole [Protonix] 40 mg PO DAILY tablet. Hydrophilic Cream [Triad Cream] 1 applic TOPICAL DAILY applic ALPRAZolam [Xanax] 0.25 mg PO BID PRN #6 tab PRN Reason: Anxiety Apixaban [Eliquis] 2.5 mg PO BID #60 tablet Gabapentin [Neurontin] 100 mg PO HS #14 cap Fluconazole [Diflucan] 100 mg PO DAILY #5 tablet Fluconazole [Diflucan] 100 mg PO DAILY Cephalexin [Keflex] 500 mg PO Q6H carvediloL [Coreg] 3.125 mg PO AC-BID Discharge Medication List Ergocalciferol (Vitamin D2) [Drisdol] 50,000 unit PO [facility] 09/02/18 [History] Cyanocobalamin (Vitamin B-12) [Vitamin B-12] 1,000 mcg PO DAILY 05/27/19 [History] Morphine/Bupivacaine Pump 1 dose INTRATHECA CONTINUOUS 05/27/19 [History] rOPINIRole HCL [Requip] 1 mg PO HS 03/28/20 [History] ALPRAZolam [Xanax] 0.25 mg PO BID PRN #6 tab 04/08/20 [Rx] Citalopram Hydrobromide [CeleXA] 10 mg PO DAILY tab 04/08/20 [Rx] Hydrophilic Cream [Triad Cream] 1 applic TOPICAL DAILY applic 04/08/20 [Rx] Ipratropium-Albuterol Nebulize [Duoneb 0.5 mg-3 mg/3 ml Soln] 3 ml INHALATION RT-QID ml 04/08/20 [Rx] Nicotine 21Mg/24Hr Patch [Habitrol] 1 patch TRANSDERM DAILY patch 04/08/20 [Rx] Pantoprazole [Protonix] 40 mg PO DAILY tablet. 04/08/20 [Rx] Apixaban [Eliquis] 2.5 mg PO BID #60 tablet 04/13/20 [Rx] Fluconazole [Diflucan] 100 mg PO DAILY #5 tablet 04/13/20 [Rx] Gabapentin [Neurontin] 100 mg PO HS #14 cap 04/13/20 [Rx] Cephalexin [Keflex] 500 mg PO Q6H 04/17/20 [History] Fluconazole [Diflucan] 100 mg PO DAILY 04/17/20 [History] carvediloL [Coreg] 3.125 mg PO AC-BID 04/17/20 [History] Follow up Appointment(s)/Referral(s): [facility], [NON-STAFF] - Juan Diego Issa MD [REFERRING] - Activity/Diet/Wound Care/Special Instructions: Dialysis pts palliative score is 4 Discharge Disposition: - Preliminary Cause of Preliminary Cause of : COVID-19 pneumonia
--- NOTE | 2020-05-02 21:38 | CDI ---
Documentation Clarification Form Date: 05/03/2020 From: Bao Hernandez Phone: If you have a question about this query, please contact Polly Estrada, Retail Loss Prevention Specialist at [phone] between 8am and 5pm. Admit Date: 04/17/2020 Discharge Date: 04/30/2020 Patient Name: Sharmila Rios Visit Number: [id number] ATTENTION: The Clinical Documentation Specialists (CDI) and [facility] Coding Staff appreciate your assistance in clarifying documentation. Please respond to the clarification below the line at the bottom and electronically sign. The CDI & [facility] Coding staff will review the response and follow-up if needed. Please note: Queries are made part of the Legal Health Record. If you have any questions, please contact the author of this message via ITS. Dear Miguel Pierce MD., Admitted with-acute hypoxic and hypercapnic respiratory failure, related to acute COVID 19 pneumonia, acute kidney injury History/Risk Factors: Liver shock, ESRD, SHEY, Acute respiratory failure. WBC : 4.9 Vitals signs on admission: 04/17/20 16:15 97.8 F 66 12 87/57 Treatment: Remdesivir Acute kidney injury, currently hemodialysis dependent secondary to non recovered ATN from severe sepsis last admission. Mar 28 to Admitted with-acute metabolic encephalopathy felt to be multifactorial, severe ischemic hepatitis from hypotension, acute kidney injury, likely ATN started on hemodialysis, septic shock, acute hypoxic and hypercapnic respiratory failure, metabolic and respiratory acidosis, COPD exacerbation. In your professional opinion, please clarify if these findings signify one of the following conditions, Sepsis continuously presence in this admission? YES NO NO SEPSIS MTDD
--- NOTE | 2020-05-02 21:46 | CDI ---
Documentation Clarification Form Date: 05/03/2020 From: Bao Hernandez Phone: If you have a question about this query, please contact Polly Estrada, Label Stamper at [phone] between 8am and 5pm. Admit Date: 04/17/2020 Discharge Date: 04/30/2020 Patient Name: Sharmila Rios Visit Number: [id number] ATTENTION: The Clinical Documentation Specialists (CDI) and [facility] Coding Staff appreciate your assistance in clarifying documentation. Please respond to the clarification below the line at the bottom and electronically sign. The CDI & [facility] Coding staff will review the response and follow-up if needed. Please note: Queries are made part of the Legal Health Record. If you have any questions, please contact the author of this message via ITS. Dear Jovan Ramirez DO., CHF is documented as History of congestive heart failure. History/Risk Factors: ESRD, Hypertension Clinical Indicators: 04/17/20 17:00 64 12 84/53 95 BNP: 8540 Treatment: IV Lasix 04/27 progress note Volume overload.Improving with ultrafiltration And diuresis.I will arrange for ultrafiltration only today for about 2.5 hours and change Lasix to IV. In your professional opinion, can you please clarify the acuity and type of CHF if known? Systolic Heart Failure: Acute Chronic Acute on Chronic Diastolic Heart Failure: Acute Chronic Acute on Chronic Systolic & Diastolic Heart Failure: Acute Chronic Acute on Chronic Heart Failure Unable to Determine Other, please specify unknown __ MTDD
== END 2020-04-30 08:33 | disposition expired | DRG 177 ==
LOC: EC 11:59 → 2SICU 14:12 → 3SCARD 04-18 12:05 → 2SICU 04-20 15:51
PROVIDERS: ADMIT Hospitalist; ATTEND Hospitalist
PROC: 5A09557 Assistance with Respiratory Ventilation, Greater than 96 Consecutive Hours, Continuous Positive Airway Pressure (ICD-10-PCS; principal; 2020-04-20)
PROC: 30233N1 Transfusion of Nonautologous Red Blood Cells into Peripheral Vein, Percutaneous Approach (ICD-10-PCS; principal; 2020-04-20)
PROC: 5A1D70Z Performance of Urinary Filtration, Intermittent, Less than 6 Hours Per Day (ICD-10-PCS; 2020-04-20)
PROC: 02HV33Z Insertion of Infusion Device into Superior Vena Cava, Percutaneous Approach (ICD-10-PCS; 2020-04-20)
PROC: 30233K1 Transfusion of Nonautologous Frozen Plasma into Peripheral Vein, Percutaneous Approach (ICD-10-PCS; 2020-04-21)
DX: U07.1 COVID-19 (principal); N18.6 End stage renal disease; J12.89 Other viral pneumonia; G92 Toxic encephalopathy; K72.00 Acute and subacute hepatic failure without coma; J80 Acute respiratory distress syndrome; N17.0 Acute kidney failure with tubular necrosis; E87.4 Mixed disorder of acid-base balance; M48.56XA Collapsed vertebra, not elsewhere classified, lumbar region, initial encounter for fracture; I82.C11 Acute embolism and thrombosis of right internal jugular vein; I82.621 Acute embolism and thrombosis of deep veins of right upper extremity; I82.611 Acute embolism and thrombosis of superficial veins of right upper extremity; J44.1 Chronic obstructive pulmonary disease with (acute) exacerbation; B37.0 Candidal stomatitis; J93.83 Other pneumothorax; E87.1 Hypo-osmolality and hyponatremia; F05 Delirium due to known physiological condition; J44.0 Chronic obstructive pulmonary disease with (acute) lower respiratory infection; J96.11 Chronic respiratory failure with hypoxia; I13.2 Hypertensive heart and chronic kidney disease with heart failure and with stage 5 chronic kidney disease, or end stage renal disease; Z66 Do not resuscitate; D63.1 Anemia in chronic kidney disease; Z51.5 Encounter for palliative care; Z99.2 Dependence on renal dialysis; I50.9 Heart failure, unspecified; M19.90 Unspecified osteoarthritis, unspecified site; G89.4 Chronic pain syndrome; K29.70 Gastritis, unspecified, without bleeding; F31.9 Bipolar disorder, unspecified; F41.9 Anxiety disorder, unspecified; E87.5 Hyperkalemia; T38.0X5A Adverse effect of glucocorticoids and synthetic analogues, initial encounter; K21.9 Gastro-esophageal reflux disease without esophagitis; E78.5 Hyperlipidemia, unspecified; F17.210 Nicotine dependence, cigarettes, uncomplicated; D69.6 Thrombocytopenia, unspecified; R53.81 Other malaise; E87.6 Hypokalemia; E83.39 Other disorders of phosphorus metabolism; K81.9 Cholecystitis, unspecified; K75.89 Other specified inflammatory liver diseases; R13.10 Dysphagia, unspecified; Z79.899 Other long term (current) drug therapy; Z79.52 Long term (current) use of systemic steroids; Z88.0 Allergy status to penicillin; Z88.2 Allergy status to sulfonamides; Z88.6 Allergy status to analgesic agent; Z91.011 Allergy to milk products; Z86.73 Personal history of transient ischemic attack (TIA), and cerebral infarction without residual deficits; Z86.718 Personal history of other venous thrombosis and embolism; Z79.01 Long term (current) use of anticoagulants; Z97.8 Presence of other specified devices; Z98.890 Other specified postprocedural states; Z83.3 Family history of diabetes mellitus; Z80.9 Family history of malignant neoplasm, unspecified
CPT/HCPCS: 36415; 36600; 71045; 71250; 80048; 80053; 82272; 82728; 82805; 83520; 83615; 83735; 83880; 84100; 84443; 84484; 85025; 85027; 85379; 85384; 85610; 85730; 86140; 86706; 86850; 86870; 86880; 86900; 86901; 86902; 86920; 87340; 90935; 93005; 94640; 94660; 94760; 96361; 96374; 99291